=== PATIENT | male | born 1955 | race Caucasian/White ===

== ENCOUNTER 2016-10-27 19:29 | Inpatient (IN) | payer BC ==
[~2016-10-27] VITALS: Ht 185.4 cm; Wt 93.8 kg
[2016-10-27 22:15] VITALS: BP 118/68; PULSE 78; RESP 20; Ht 185.4 cm; Wt 93.8 kg
[2016-10-27 22:42] VITALS: PULSE 76
[2016-10-28] VITALS (28 sets, daily range): BP systolic 89–129; BP diastolic 51–81; PULSE 70–81; RESP 9–29
[2016-10-28] MEDS ORDERED: NACL 0.9% 3 ML SYG IV SCH (04:00)
[2016-10-28] MEDS ORDERED: METOCLOPRAMIDE 10 MG INJ IV PRN (04:00)
[2016-10-28] MEDS ORDERED: LORAZEPAM 2 MG INJ IV PRN (04:00)
--- NOTE | 2016-10-28 04:03 | HP ---
Date/Time of Note Date/Time of Note DATE: 10/28/16 TIME: 04:02 Assessment/Plan VTE Prophylaxis VTE Prophylaxis Intervention: anti-embolic stocking Lines/Catheters IV [facility]ter Type (from [facility]): Saline Lock Urinary Cath still in place: No Assessment/Plan Assessment/Plan 1) Abdominal Pain - Admit to telemetry - NPO 2) Elevated Troponin - possibly due to the seizures he had prior to his arrival at [facility] - complete serial Troponins - Cardiac Cath this afternoon HPI/ROS Admit Date/Time Admit Date/Time Oct 27, 2016 at 22:32 Hx of Present Illness Patient was transferred to us from [facility]. Initially, based on the paperwork that was sent with the patient, it seemed that he was sent here by mistake, and that he should have been [facility] his [facility].But ultimately, we found he was sent here to get a Cardiac Cath and to receive the rest of his care here. Unfortunately, there was no Discharge Summary with the patient and the note we had was that he was waiting for his Bone Marrow biopsy results and that if there was no adenopathy, he should get a heart cath. However , based on the CT of his chest, there was a lot of mediastinal nodes and a satellite lesion in the base that appeared to be malignant. Patient states this is why they did th bone marrow biopsy. Also, we did learn that patient was scheduled for a Heart Cath at 1430 on 10/28/16 . . . but it seemed that our physicians, the accepting hospitalist and the shared services and outsourcing manager may not have the entire story. Ultimately, it was me that did not have all the story. Patient had originally presented to [facility] after suffering 4 seizures in a row. His Troponins were found to be elevated and he was diagnosed with an NSTEMI. He also had some GI bleeding which has resolved. Patient states, and I can confirm it from the paperwork that he did have a thoracentesis, 410 mL fluid removed and sent to [facility], which helped him feel much better. Course of care not clear without a Discharge Summary as reference. came in, and when I had finished my interview, he let me know that prior to discharge, the patient's plan had changed and that he is supposed to get his Angiogram done today. Patient lets me know that he is having insurance and SNF issues in that he cannot return to [facility], the SNF he has been living at, because his insurance changed, and he is not sure what to do when he leaves [facility] as he has nowhere to stay. Other than being tired from only getting 3 hours of sleep, patient has no specific complaints or concerns. ROS General: Admits: Denies: Fever, Chills, Poor Appetite, Abnormal Weight Loss, Generalized Body Aches Eyes: Admits: Denies: Blurry Vision, Double Vision, Yellow Eyes HENT: Admits: Denies: Ear Pain/Pressure, Runny/Stuffy Nose, Sore Throat Cardiovascular: Admits: Denies: Chest Pain, Palpitations, Leg Swelling Pulmonary: Admits: Shortness of Breathwhen he walks a short distance "1 1/2 years ago I regularly walked 10 miles for exercise. Now, I can hardly walk across the room." Denies: Cough, Wheeze Gastrointestinal: Admits: Abdominal Discomfort, mild. On a previous admission , he ended up with C. dif and was hospitalized for 9 months while it was being treated. Hopes that does not happen again. Mentions that the discomfort is when he is having his BM. Lately, there has been a plug of stool, and once that passes, there is watery diarrhea behind it.No blood or mucus appreciated. Denies: Nausea, Vomiting, Diarrhea, Blood in Stool, Black-Colored Stool Urogenital: Admits: Denies: Burning with Urination, Urinary Frequency Musculoskeletal: Admits: Denies: Joint Pain, Joint Swelling, Muscle Pain Neurological: Admits: Denies: Headache, Dizziness, Numbness, Tingling, Shooting Pains Integumentary: Admits: Denies: Rash, Itch, Yellow Skin Endocrine: Admits: Denies: Excessive Thirst, Excessive Hunger, Intolerant to Cold , Intolerant to Heat Psychiatric: Admits: Denies: Anxiety, Depression PMH/Family/Social Past Medical History Medical History: diabetes Social History Smoking Status: Never smoker Exam/Review of Systems Vital Signs Vitals Vital Signs Date Time Temp Pulse Resp B/P Pulse Ox O2 Delivery O2 Flow Rate FiO2 10/28/16 02:18 97.7 74 18 116/65 97 10/27/16 22:15 Room Air Exam Exam General: Sleeping, easily roused, alert, oriented and pleasant, in no acute distress Eyes: Sclera White, EOMI HENT: Normocephalic/Atraumatic, External Ears/Nose Normal, Moist Mucus Membranes Neck: Supple, Trachea Midline Cardiovascular: Normal Rate, Normal Rhythm, Normal S1 and S2, No Murmur, No Extra Sounds Pulmonary: Clear to Auscultation Bilaterally, except decreased airflow in the bases. Normal Respiratory Effort, No Rales, Rhonchi or Wheezes Gastrointestinal: Normoactive Bowel Sounds, Soft, Non-Tender/Non-Distended, No Hepatosplenomegaly Appreciated, No Pulsatile Masses Urogenital: Deferred Musculoskeletal: Normal Muscle Bulk and Tone Neurological: CN II - XII Grossly Intact, Non-Focal, Speech Normal Integumentary: Normal Moisture and Temperature, Good Turgor, No Jaundice, No Rash Lymphatic: No Cervical Lymphadenopathy Psychiatric: Appropriate Mood and Affect, Good Eye Contact DANA ESCUDERO DO Oct 28, 2016 04:03
[2016-10-28] MEDS: FAMOTIDINE 20 MG INJ IV SCH ×3 (05:25→21:13)
[2016-10-28] MEDS: morphine 2 MG INJ IV PRN ×3 (05:26→15:13)
[2016-10-28 07:26] LABS: ADD SCAN DIFF NO
[2016-10-28 07:33] LABS: BASOPHILS % 0.3 % (0.0-2.0); EOSINOPHILS # 0.4 10^3/ul (0.0-0.5); EOSINOPHILS % 5.8 % (0.0-7.0); HEMATOCRIT 28.6 % (42.0-52.0); HEMOGLOBIN 8.7 g/dl (14.0-18.0); LYMPHOCYTES # 1.5 10^3/ul (0.8-2.9); LYMPHOCYTES % 22.5 % (15.0-51.0); MEAN CORPUSCULAR HEMOGLOBIN 24.6 pg (29.0-33.0); MEAN CORPUSCULAR HGB CONC 30.4 g/dl (32.0-37.0); MEAN CORPUSCULAR VOLUME 80.8 fl (82.0-101.0); MEAN PLATELET VOLUME 8.9 fl (7.4-10.4); MONOCYTE # 0.5 10^3/ul (0.3-0.9); MONOCYTES % 7.3 % (0.0-11.0); NEUTROPHIL # 4.2 10^3/ul (1.6-7.5); NEUTROPHILS % 63.8 % (39.0-77.0); PLATELET COUNT 201 10^3/UL (140-415); RED BLOOD COUNT 3.54 10^6/ul (4.70-6.10); RED CELL DISTRIBUTION WIDTH 14.7 % (11.5-14.5); WHITE BLOOD COUNT 6.6 10^3/ul (4.8-10.8)
[2016-10-28 07:39] LABS: ALBUMIN 3.5 g/dl (3.3-4.9)
[2016-10-28 07:40] LABS: POTASSIUM 4.4 mmol/L (3.5-5.1)
[2016-10-28 07:42] LABS: BILIRUBIN,INDIRECT 0.1 mg/dl (0-1.1); BILIRUBIN,TOTAL 0.1 mg/dl (0.2-1.3); CREATININE 0.89 mg/dl (0.61-1.24)
[2016-10-28 07:43] LABS: ALBUMIN/GLOBULIN RATIO 1.09; CALCIUM 8.6 mg/dl (8.4-10.2); MAGNESIUM 2.1 mg/dl (1.7-2.5); TOTAL PROTEIN 6.7 g/dl (6.1-8.1)
[2016-10-28 07:51] LABS: INR 0.94; PROTIME 12.6 Sec (12.2-14.2)
[2016-10-28 08:13] LABS: THYROID STIMULATING HORMONE 3.01 MIU/L (0.465-4.680)
[2016-10-28 08:27] LABS: CK-MB 3.59 ng/ml (0.0-2.4)
[2016-10-28 08:32] LABS: TROPONIN-I 0.146 ng/ml (0.00-0.12)
[2016-10-28] MEDS: METOPROLOL 25 MG TAB PO SCH ×2 (10:07→21:13)
[2016-10-28] MEDS: ASPIRIN 81 MG TAB PO SCH (10:07)
[2016-10-28] MEDS ORDERED: LIDOCAINE 1% (MDV) 20 ML INJ ONE (12:02)
[2016-10-28] MEDS ORDERED: VERAPAMIL 5 MG INJ ONE (12:02)
[2016-10-28] MEDS ORDERED: IODIXANOL LOCM 100 ML BTL ONE (12:02)
[2016-10-28] MEDS ORDERED: FENTAnyl 50 MCG/ML VIAL ONE (12:03)
[2016-10-28] MEDS ORDERED: MIDAZOLAM 1 MG/ML 2 ML INJ ONE (12:03)
[2016-10-28] MEDS ORDERED: HEPARIN 1000 UNITS/ML 10 ML INJ ONE (12:11)
[2016-10-28] MEDS ORDERED: NITROGLYCERIN (IC) 100 MCG/ML INJ ONE (12:11)
[2016-10-28 12:34] LABS: CK-MB 2.97 ng/ml (0.0-2.4)
[2016-10-28 12:36] LABS: TROPONIN-I 0.15 ng/ml (0.00-0.12)
[2016-10-28] MEDS ORDERED: ONDANSETRON 4 MG INJ IV PRN (14:00)
--- NOTE | 2016-10-28 14:05 | OPR ---
Date/Time of Note Date/Time of Note DATE: 10/28/16 TIME: 13:51 Operative Report Free Text/Dictation Procedure Date: 10/28/16 Procedures Performed: 1)Selective left and right coronary angiography. 2)Left ventricle angiography Pre-operative Diagnosis:NSTEMI, CAD. DM Post-operative Diagnosis:same Indications:61 yo M with DM, seizure disorder, right transmetatarsal amputation , who initially presented to [facility] with seizures and possible hematemesis s/p EGD with esophagitis, who was noted to have an NSTEMI with trop up to 2. The pt also had CHF and was diuresed and had thoracentesis. He also had lymphadenopathy on CT and had biopsy with results pending. Pt also had a bone marrow biopsy with results pending. He had a coronary CT which showed severe LAD and Cx disease with nondominant RCA disease. Cardiac cath was done for definitive coronary evaluation. Description of Procedure: After informed consent, the patient was brought to the cardiac catheterization lab. The procedure site was prepped and draped in usual manner. The patient was premedicated with versed 1mg and fentanyl 25 mcg. 2 mL lidocaine was injected into the right wrist. Next using the posterior wall approach, the 6/5 israeli sheath was inserted into the right radial artery. Next using the JL3.5 and JR4, selective angiography of the left and right coronary arteries were obtained. The pigtail was then advanced into the ventricle and hemodynamics obtained. Left ventricle angiography was obtained. Next all equipment was removed and hemostasis was obtained by TR band. 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 Best option is for CABG at this time. If not a candidate, may have some revascularization options but may need significant amount of stents. NSTEMI CHF Moderate MR: seen on echo while pt was decompensated. Only 1+ by cath but maybe underestimated. Will repeat echo Plan: -cardiac surgery eval for CABG -repeat echo for MR evaluation -continue ASA, statin, metoprolol TOMMIE PERALTA Oct 28, 2016 14:05
--- NOTE | 2016-10-28 14:25 | CONS ---
Date/Time of Note Date/Time of Note DATE: 10/28/16 TIME: 14:06 Assessment/Plan Assessment/Plan Chief Complaint/Hosp Course NSTEMI: s/p cath with severe CAD CAD: diffuse LAD disease, Cx/OM disease, non-dominant RCA. Eval for CABG Mitral regurgitation: moderate by echo at [facility] but pt had decompensated heart failure. By cath only 1+ but may be underestimated. Will repeat echo in case pt needs MVR as well. Seizure disorder: initial presentation was seizure ?Hematemesis: pt denies but had an EGD which showed Barretts esophagitis but otherwise no bleeding Lymphadenopathy: s/p biopsy, results pending Bone marrow biopsy: results pending DM Right transmetatarsal amputation -ASA, lipitor -metoprolol 25mg BID -repeat echo -cardiac surgery evaluation -f/u biopsy results Problems: Consultation Date/Type/Reason Admit Date/Time Oct 27, 2016 at 22:32 Initial Consult Date Type of Consultation: Cardiology 24 HR Interval Summary Free Text/Dictation 61 yo M with DM, seizure disorder, right transmetatarsal amputation, who initially presented to [facility] with seizures and possible hematemesis s/p EGD with esophagitis, who was noted to have an NSTEMI with trop up to 2. The pt also had CHF and was diuresed and had thoracentesis. He also had lymphadenopathy on CT and had biopsy with results pending. Pt also had a bone marrow biopsy with results pending. He had a coronary CT which showed severe LAD and Cx disease with nondominant RCA disease. Pt was transferred to [facility] for cardiac cath. Exam/Review of Systems Vital Signs Vitals Vital Signs Date Time Temp Pulse Resp B/P Pulse Ox O2 Delivery O2 Flow Rate FiO2 10/28/16 12:29 72 10/28/16 12:06 97.9 19 118/63 92 10/28/16 12:00 Room Air Exam Constitutional: alert, oriented Psych: no complaints Head: atraumatic, normocephalic Neck: No jvd Respiratory: clear to auscultation, No crackles/rales Cardiovascular: regular rate and rhythm, No edema, No systolic murmur Gastrointestinal: non-tender, soft Neurological: nl mental status, nl speech Results Result Diagram: 10/28/1663210/28/16632 Results 24 hrs Laboratory Tests Test 10/28/16 06:33 10/28/16 11:21 White Blood Count 6.6 Red Blood Count 3.54 L Hemoglobin 8.7 L Hematocrit 28.6 L Mean Corpuscular Volume 80.8 L Mean Corpuscular Hemoglobin 24.6 L Mean Corpuscular Hemoglobin Concent 30.4 L Red Cell Distribution Width 14.7 H Platelet Count 201 Mean Platelet Volume 8.9 Neutrophils % 63.8 Lymphocytes % 22.5 Monocytes % 7.3 Eosinophils % 5.8 Basophils % 0.3 Nucleated Red Blood Cells % 0.0 Neutrophils # 4.2 Lymphocytes # 1.5 Monocytes # 0.5 Eosinophils # 0.4 Basophils # 0.0 Nucleated Red Blood Cells # 0.0 Prothrombin Time 12.6 Prothrombin Time Ratio 1.0 INR International Normalized Ratio 0.94 Sodium Level 138 Potassium Level 4.4 Chloride Level 97 Carbon Dioxide Level 32 H Anion Gap 13 Blood Urea Nitrogen 23 H Creatinine 0.89 Glucose Level 149 Hemoglobin A1c 7.3 H Calcium Level 8.6 Magnesium Level 2.1 Total Bilirubin 0.1 L Direct Bilirubin 0.00 Indirect Bilirubin 0.1 Aspartate Amino Transf (AST/SGOT) 25 Alanine Aminotransferase (ALT/SGPT) 32 Alkaline Phosphatase 144 H Lactate Dehydrogenase 524 Creatine Kinase 76 72 Creatine Kinase Index 4.7 4.1 Creatinine Kinase MB (Mass) 3.59 H 2.97 H Troponin I 0.146 *H 0.150 *H Total Protein 6.7 Albumin 3.5 Globulin 3.20 Albumin/Globulin Ratio 1.09 Lipase 20 L Thyroid Stimulating Hormone (TSH) 3.010 Medications Medications Current Medications Lorazepam (Ativan) 0.5 mg Q6H PRN IV ANXIETY; Start 10/28/16 at 04:00 Metoclopramide HCl (Reglan) 10 mg Q6H PRN IV NAUSEA AND/OR VOMITING; Start at 04:00 Acetaminophen (Tylenol Supp) 650 mg Q6H PRN [place] PAIN LEVEL 1-3 OR FEVER; Start 10/28/16 at 04:00 Morphine Sulfate (morphine) 2 mg Q4H PRN IV PAIN LEVEL 7-10 Last administered on 10/28/16 10:09; Admin Dose 2 MG; Start 10/28/16 at 04:00 Famotidine (Pepcid Iv) 20 mg Q12 IV Last administered on 10/28/16 09:48; Admin Dose 20 MG; Start 10/28/16 at 04:00 Aspirin (Aspirin) 81 mg DAILY PO Last administered on 10/28/16 10:07; Admin Dose 81 MG; Start 10/28/16 at 09:00 Atorvastatin Calcium (Lipitor) 40 mg HS PO ; Start 10/28/16 at 21:00 Metoprolol Tartrate (Lopressor) 25 mg BID PO Last administered on 10/28/16 10: 07; Admin Dose 25 MG; Start 10/28/16 at 09:00 TOMMIE PERALTA Oct 28, 2016 14:25
--- NOTE | 2016-10-28 16:32 | PN ---
Date/Time of Note Date/Time of Note DATE: 10/28/16 TIME: 16:23 Assessment/Plan VTE Prophylaxis VTE Prophylaxis Intervention: LMWH Lines/Catheters IV [facility] Type (from [facility]): Peripheral IV Urinary Cath still in place: No Assessment/Plan Chief Complaint/Hosp Course Assessment and plan 1. NSTEMI, status post left heart cath and finding of severe diffuse three- vessel disease Continue aspirin, statin, beta-arden Cardiothoracic surgeon has been consulted for CABG 2. severe diffuse 3V disease As above, continue aggressive medical management, cardiothoracic evaluation for upcoming CABG 3. diabetic mellitus Place patient on insulin sliding scale, low-carb diet 4. CHF Cardiology has been consulted, follow-up 2D echocardiogram 5. History of moderate MR Stable 6. History of seizure disorder Continue home medication DVT prophylaxis: On Lovenox We will continue monitor patient closely for recommendation management treatment as clinical course Problems: Subjective 24 Hr Interval Summary Free Text/Dictation Post cardiac cath Patient denies any chest pain or shortness of breath Tolerating oral intake No seizure activity since admission Exam/Review of Systems Vital Signs Vitals Vital Signs Date Time Temp Pulse Resp B/P Pulse Ox O2 Delivery O2 Flow Rate FiO2 10/28/16 15:49 71 19 118/62 98 Room Air 10/28/16 14:24 98.2 Exam General: The patient is well-developed, Not in acute distress. HEENT: Atraumatic, normocephalic. The pupils are equal and round . Neck: Supple with full range of motion. Chest: Normal expansion of the thorax during inspiration Lungs: Clear to auscultation bilaterally Heart: Normal S1-S2, Regular rhythm and rate. Abdomen: Soft , nontender, nondistended , bowel sounds are present. Extremities: Normal to inspection, no edema no cyanosis Neurologic: Normal mental status,The patient is awake, alert and oriented . Results Result Diagram: 10/28/16 0633 10/28/16 0633 Results 24 hrs Laboratory Tests Test 10/28/16 06:33 10/28/16 11:21 10/28/16 15:42 White Blood Count 6.6 Red Blood Count 3.54 L Hemoglobin 8.7 L Hematocrit 28.6 L Mean Corpuscular Volume 80.8 L Mean Corpuscular Hemoglobin 24.6 L Mean Corpuscular Hemoglobin Concent 30.4 L Red Cell Distribution Width 14.7 H Platelet Count 201 Mean Platelet Volume 8.9 Neutrophils % 63.8 Lymphocytes % 22.5 Monocytes % 7.3 Eosinophils % 5.8 Basophils % 0.3 Nucleated Red Blood Cells % 0.0 Neutrophils # 4.2 Lymphocytes # 1.5 Monocytes # 0.5 Eosinophils # 0.4 Basophils # 0.0 Nucleated Red Blood Cells # 0.0 Prothrombin Time 12.6 Prothrombin Time Ratio 1.0 INR International Normalized Ratio 0.94 Sodium Level 138 Potassium Level 4.4 Chloride Level 97 Carbon Dioxide Level 32 H Anion Gap 13 Blood Urea Nitrogen 23 H Creatinine 0.89 Glucose Level 149 Hemoglobin A1c 7.3 H Calcium Level 8.6 Magnesium Level 2.1 Total Bilirubin 0.1 L Direct Bilirubin 0.00 Indirect Bilirubin 0.1 Aspartate Amino Transf (AST/SGOT) 25 Alanine Aminotransferase (ALT/SGPT) 32 Alkaline Phosphatase 144 H Lactate Dehydrogenase 524 Creatine Kinase 76 72 Creatine Kinase Index 4.7 4.1 Creatinine Kinase MB (Mass) 3.59 H 2.97 H Troponin I 0.146 *H 0.150 *H Total Protein 6.7 Albumin 3.5 Globulin 3.20 Albumin/Globulin Ratio 1.09 Lipase 20 L Thyroid Stimulating Hormone (TSH) 3.010 Bedside Glucose 148 Medications Medications Current Medications Lorazepam (Ativan) 0.5 mg Q6H PRN IV ANXIETY; Start 10/28/16 at 04:00 Metoclopramide HCl (Reglan) 10 mg Q6H PRN IV NAUSEA AND/OR VOMITING; Start at 04:00 Acetaminophen (Tylenol Supp) 650 mg Q6H PRN [place] PAIN LEVEL 1-3 OR FEVER; Start 10/28/16 at 04:00 Morphine Sulfate (morphine) 2 mg Q4H PRN IV PAIN LEVEL 7-10 Last administered on 10/28/16 10:09; Admin Dose 2 MG; Start 10/28/16 at 04:00 Famotidine (Pepcid Iv) 20 mg Q12 IV Last administered on 10/28/16 09:48; Admin Dose 20 MG; Start 10/28/16 at 04:00 Aspirin (Aspirin) 81 mg DAILY PO Last administered on 10/28/16 10:07; Admin Dose 81 MG; Start 10/28/16 at 09:00 Atorvastatin Calcium (Lipitor) 40 mg HS PO ; Start 3/23/17 at 21:00 Metoprolol Tartrate (Lopressor) 25 mg BID PO Last administered on 10/28/16 10: 07; Admin Dose 25 MG; Start 10/28/16 at 09:00 Morphine Sulfate (morphine) 2 mg Q2H PRN IV FOR NON CARDIAC PAIN (4-10) Last administered on 10/28/16 15:13; Admin Dose 2 MG; Start 10/28/16 at 14:00 Ondansetron HCl (Zofran Inj) 4 mg Q4H PRN IV NAUSEA AND/OR VOMITING; Start at 14:00 BRITTNEY COPELAND MD Oct 28, 2016 16:32
[2016-10-28 19:36] LABS: ADD UMIC NO; URINE BILIRUBIN (Dip) NEGATIVE (NEGATIVE); URINE BLOOD (Dip) NEGATIVE (NEGATIVE); URINE COLOR LT. YELLOW (YELLOW); URINE GLUCOSE (Dip) NEGATIVE (NEGATIVE); URINE KETONES (Dip) NEGATIVE (NEGATIVE); URINE LEUKOCYTE ESTERASE (Dip) NEGATIVE (NEGATIVE); URINE NITRITE (Dip) NEGATIVE (NEGATIVE); URINE TOTAL PROTEIN (Dip) NEGATIVE (NEGATIVE); URINE UROBILINOGEN (Dip) 0.2 E.U./dL (0.1-1.0)
--- NOTE | 2016-10-28 20:21 | CONS ---
DATE OF ADMISSION: 10/27/2016 DATE OF CONSULTATION: REASON FOR CONSULTATION: Evaluation for coronary artery bypass grafting. Thank you, ____ for asking me to see this patient. HISTORY OF PRESENT ILLNESS: This is a 61-year-old male with a history of seizure disorder which was started 15 years ago. The patient at that time had a myocardial infarction. The patient is now be ing admitted to [facility] with seizures again and hemetemesis. The patient was found to have a [id number] MA with elevation of the troponins. Coronary angiogram was done which show ed 3-vessel coronary artery disease. The patient's LAD had 70% proximal and 80 to 90% distal, diago nal branch had 80 to 90% disease, circumflex had 70% stenosis at OM2 and OM3. Right coronary artery was small, nondominant with 70% stenosis. Left ventricular ejection fraction was 55% with 1+ MR. PAST MEDICAL HISTORY: Positive for hypertension, diabetes, peripheral vascular disease, CHF, histor y of seizure disorder. PAST SURGICAL HISTORY: Foot amputation. ALLERGIES: NONE. SOCIAL HISTORY: No smoking, drinking, or drug use. MEDICATIONS: List reviewed. PHYSICAL EXAMINATION: VITAL SIGNS: Blood pressure is 121/89, pulse 72, respirations 18, saturation is 97% on room air. HEENT: Normocephalic, atraumatic. PERRLA. NECK: Supple. No JVD, no carotid bruits. CARDIOVASCULAR: Regular rate and rhythm. LUNGS: Clear. ABDOMEN: Soft. EXTREMITIES: Warm. Foot amputation is noted. LABORATORY VALUES: Hemoglobin 8.7, white count 6.6, platelet count 201. Normal coagulation factors with a creatinine of 0.89. IMPRESSION: 1. Coronary artery disease. 2. Status post myocardial infarction. 3. Anemia. 4. Gastrointestinal bleeding. 5. Seizure disorder. 6. Peripheral vascular disease status post foot amputation. RECOMMENDATIONS: The patient is a candidate to undergo coronary artery bypass grafting; however, hi s GI bleeding needs to be fully evaluated because during the course of open heart surgery, he would be given a very large dose of heparin. This was discussed with the patient. Will discuss with the referring physicians. Dictated By: JOAN CONNELL/JOSELINE Conf#: [id number] DID#: [id number]
[2016-10-28] MEDS: ATORVASTATIN 40 MG TAB PO SCH (21:12)
--- NOTE | 2016-10-28 23:19 | CONS ---
Date/Time of Note Date/Time of Note DATE: 10/28/16 TIME: :17 Assessment/Plan Assessment/Plan Chief Complaint/Hosp Course Anemia S/P EGD ([facility]) Esophagitis POST BMBX- AT [facility] THE REST -P AWAIT FINAL PATH MONITOR BLOOD COUNT CLOSELY NSTEMI Multivessel CAD History of seizure History of alcoholism History of C difficile colitis Diabetes mellitus POST BMBX- AT [facility], THE REST -P AWAIT FINAL PATH Problems: Consultation Date/Type/Reason Admit Date/Time Oct 27, 2016 at 22:32 Date of Consultation: Oct 28, 2016 Type of Consultation: HEMEONC Reason for Consultation ANEMIA, INCREASED GLOBULINS Referring Provider: ANGELINA BO MD Hx of Present Illness POST BMBX- AT [facility], THE REST -P Psychological: no complaints Past Medical History Medical History: diabetes Social History Smoking Status: Never smoker Exam/Review of Systems Vital Signs Vitals Vital Signs Date Time Temp Pulse Resp B/P Pulse Ox O2 Delivery O2 Flow Rate FiO2 10/28/16 20:41 72 10/28/16 20:08 97.7 20 109/57 98 10/28/16 15:49 Room Air Exam Exam Constitutional: alert, oriented, well developed Psych: nl mood/affect Head: normocephalic Eyes: EOMI, nl conjunctiva, nl lids ENMT: nl external ears & nose, nl lips & teeth, nl nasal mucosa & septum Respiratory: clear to auscultation, normal air movement Cardiovascular: regular rate and rhythm Gastrointestinal: soft, diffuse tenderness Musculoskeletal: nl extremities to inspection Neurological: SAWSMITH II-XII intact Results Result Diagram: 10/28/16 0633 10/28/16 0633 Results 24 hrs Laboratory Tests Test 10/28/16 06:33 10/28/16 11:21 10/28/16 15:42 10/28/16 18:00 White Blood Count 6.6 Red Blood Count 3.54 L Hemoglobin 8.7 L Hematocrit 28.6 L Mean Corpuscular Volume 80.8 L Mean Corpuscular Hemoglobin 24.6 L Mean Corpuscular Hemoglobin Concent 30.4 L Red Cell Distribution Width 14.7 H Platelet Count 201 Mean Platelet Volume 8.9 Neutrophils % 63.8 Lymphocytes % 22.5 Monocytes % 7.3 Eosinophils % 5.8 Basophils % 0.3 Nucleated Red Blood Cells % 0.0 Neutrophils # 4.2 Lymphocytes # 1.5 Monocytes # 0.5 Eosinophils # 0.4 Basophils # 0.0 Nucleated Red Blood Cells # 0.0 Prothrombin Time 12.6 Prothrombin Time Ratio 1.0 INR International Normalized Ratio 0.94 Sodium Level 138 Potassium Level 4.4 Chloride Level 97 Carbon Dioxide Level 32 H Anion Gap 13 Blood Urea Nitrogen 23 H Creatinine 0.89 Glucose Level 149 Hemoglobin A1c 7.3 H Calcium Level 8.6 Magnesium Level 2.1 Total Bilirubin 0.1 L Direct Bilirubin 0.00 Indirect Bilirubin 0.1 Aspartate Amino Transf (AST/SGOT) 25 Alanine Aminotransferase (ALT/SGPT) 32 Alkaline Phosphatase 144 H Lactate Dehydrogenase 524 Creatine Kinase 76 72 Creatine Kinase Index 4.7 4.1 Creatinine Kinase MB (Mass) 3.59 H 2.97 H Troponin I 0.146 *H 0.150 *H Total Protein 6.7 Albumin 3.5 Globulin 3.20 Albumin/Globulin Ratio 1.09 Lipase 20 L Thyroid Stimulating Hormone (TSH) 3.010 Bedside Glucose 148 Urine Color LT. YELLOW Urine Clarity CLEAR Urine pH 8.0 Urine Specific Huntly 1.010 Urine Ketones NEGATIVE Urine Nitrite NEGATIVE Urine Bilirubin NEGATIVE Urine Urobilinogen 0.2 E.U./dL Urine Leukocyte Esterase NEGATIVE Urine Hemoglobin NEGATIVE Urine Glucose NEGATIVE Urine Total Protein NEGATIVE Medications Medications Current Medications Lorazepam (Ativan) 0.5 mg Q6H PRN IV ANXIETY; Start 10/28/16 at 04:00 Metoclopramide HCl (Reglan) 10 mg Q6H PRN IV NAUSEA AND/OR VOMITING; Start at 04:00 Acetaminophen (Tylenol Supp) 650 mg Q6H PRN [place] PAIN LEVEL 1-3 OR FEVER; Start 10/28/16 at 04:00 Morphine Sulfate (morphine) 2 mg Q4H PRN IV PAIN LEVEL 7-10 Last administered on 10/28/16 10:09; Admin Dose 2 MG; Start 10/28/16 at 04:00 Famotidine (Pepcid Iv) 20 mg Q12 IV Last administered on 10/28/16 21:13; Admin Dose 20 MG; Start 10/28/16 at 04:00 Aspirin (Aspirin) 81 mg DAILY PO Last administered on 10/28/16 10:07; Admin Dose 81 MG; Start 10/28/16 at 09:00 Atorvastatin Calcium (Lipitor) 40 mg HS PO Last administered on 10/28/16 21:12 ; Admin Dose 40 MG; Start 10/28/16 at 21:00 Metoprolol Tartrate (Lopressor) 25 mg BID PO Last administered on 10/28/16 21: 13; Admin Dose 25 MG; Start 10/28/16 at 09:00 Morphine Sulfate (morphine) 2 mg Q2H PRN IV FOR NON CARDIAC PAIN (4-10) Last administered on 10/28/16 15:13; Admin Dose 2 MG; Start 10/28/16 at 14:00 Ondansetron HCl (Zofran Inj) 4 mg Q4H PRN IV NAUSEA AND/OR VOMITING; Start at 14:00 Enoxaparin Sodium (Lovenox) 40 mg DAILY SC ; Start 10/29/16 at 09:00 BETO PADILLA MD Oct 28, 2016 23:19
[2016-10-29] VITALS (13 sets, daily range): BP systolic 120–153; BP diastolic 63–75; PULSE 70–77; RESP 18–20
[2016-10-29] MEDS: HYDROCODONE/APAP (5/325) TAB PO PRN (00:09)
[2016-10-29 07:45] LABS: ADD SCAN DIFF NO
[2016-10-29 07:55] LABS: BASOPHILS % 0.4 % (0.0-2.0); EOSINOPHILS # 0.3 10^3/ul (0.0-0.5); EOSINOPHILS % 5.9 % (0.0-7.0); HEMATOCRIT 28.5 % (42.0-52.0); HEMOGLOBIN 8.8 g/dl (14.0-18.0); LYMPHOCYTES # 1.3 10^3/ul (0.8-2.9); MEAN CORPUSCULAR HEMOGLOBIN 24.8 pg (29.0-33.0); MEAN CORPUSCULAR HGB CONC 30.9 g/dl (32.0-37.0); MEAN CORPUSCULAR VOLUME 80.3 fl (82.0-101.0); MEAN PLATELET VOLUME 9.3 fl (7.4-10.4); MONOCYTE # 0.4 10^3/ul (0.3-0.9); MONOCYTES % 7.9 % (0.0-11.0); NEUTROPHIL # 2.6 10^3/ul (1.6-7.5); NEUTROPHILS % 57.6 % (39.0-77.0); PLATELET COUNT 196 10^3/UL (140-415); RED BLOOD COUNT 3.55 10^6/ul (4.70-6.10); RED CELL DISTRIBUTION WIDTH 14.5 % (11.5-14.5); WHITE BLOOD COUNT 4.5 10^3/ul (4.8-10.8)
[2016-10-29 08:21] LABS: POTASSIUM 4.4 mmol/L (3.5-5.1)
[2016-10-29 08:23] LABS: CREATININE 0.96 mg/dl (0.61-1.24)
[2016-10-29 08:24] LABS: CALCIUM 8.5 mg/dl (8.4-10.2); MAGNESIUM 2.1 mg/dl (1.7-2.5)
[2016-10-29 08:25] LABS: CHOL/HDL RATIO 3.4 RATIO
[2016-10-29] MEDS: ASPIRIN 81 MG TAB PO SCH (09:04)
[2016-10-29] MEDS: FAMOTIDINE 20 MG INJ IV SCH (09:04)
[2016-10-29] MEDS: METOPROLOL 25 MG TAB PO SCH ×2 (09:05→20:59)
[2016-10-29] MEDS: ENOXAPARIN 40 MG/0.4 ML SYG SC SCH (09:06)
--- NOTE | 2016-10-29 12:25 | RADRPT ---
Echocardiogram Report Patient Name: CARL LEZAMA Gender: Male Date: 1955 Study Date: 28-Oct-2016 Pan Washer Hand: Ash Castillo [facility] Location: 5559 Ref. Physician: TOMMIE PERALTA Quality: Adequate Procedures: Transthoracic echocardiogram with complete 2D, M-Mode, and doppler examination. Indications: Mitral regurgitation. NSTEMI. 2D/M Mode Doppler Measurement Value Normal Ranges Measurement Value Normal Ranges LVIDd 2D 4.7 3.5 - 5.6 cm AV Peak Cristino 1.0 m/sec LVIDs 2D 3.1 2.1 - 4.1 cm AV Peak PG 4.0 mmHg FS 2D 34.2 % LVOT Peak Cristino 0.9 m/sec LVPWd 2D 1.0 0.6 - 1.1 cm LVOT Peak PG 3.0 mmHg IVSd 2D 0.9 0.6 - 1.1 cm IVS/LVPW 2D 0.9 AoR Diam 2D 3.1 2.0 - 3.7 cm LA/Ao 2D 1 0 - 1 EDV 2D 101.0 cm3 ESV 2D 28.7 cm3 LA Dimen 2D 4.0 2.3 - 4.0 cm Findings Left Ventricle: Normal left ventricular systolic function. Normal left ventricular cavity size. Ejection fraction is visually estimated at 55 %. Tissue Doppler/Mitral Doppler indices are consistent with impaired relaxation (Stage I diastolic dysfunction). Resting Segmental Wall Motion Analysis: Hypokinesis of the basal inferolateral and inferior teresa. Right Ventricle: Normal right ventricular size. Normal right ventricular systolic function. Left Atrium: There is mild enlargement of left atrium. Right Atrium: The right atrium is normal in size. Mitral Valve: Mitral valve leaflets appear mildly thickened. Mild mitral annular calcification. Mild mitral valve regurgitation. Aortic Valve: No significant aortic stenosis or insufficiency. Aortic cusps appear mildly calcified. Tricuspid Valve: Unable to obtain RVSP due to minimal presence of tricuspid regurgitation. Pulmonic Valve: Normal pulmonic valve appearance. There is trace pulmonic regurgitation. Pericardium: Normal pericardium with no significant pericardial effusion. Aorta: Normal aortic root. IVC: Normal size and no respiratory collapse consistent with elevated right atrial pressure. Conclusions 1.Normal left ventricular size and function. Ejection fraction is visually estimated at 55 %. No LVH. Tissue Doppler/Mitral Doppler indices are consistent with impaired relaxation (Stage I diastolic dysfunction). Hypokinesis of the basal inferolateral and inferior teresa. 2.Mild mitral valve regurgitation. 3.Unable to obtain RVSP due to minimal presence of tricuspid regurgitation. RA pressure is estimated to be 8 mmHg. Electronically Signed By: Tommie Peralta 29-Oct-2016 12:25:32 -0700 Patient Name: CARL LEZAMA Study Date: 28-Oct-2016 [id number]
--- NOTE | 2016-10-29 12:53 | CONS ---
Date/Time of Note Date/Time of Note DATE: 10/29/16 TIME: 12:51 Assessment/Plan Assessment/Plan Chief Complaint/Hosp Course NSTEMI: s/p cath with severe CAD CAD: diffuse LAD disease, Cx/OM disease, non-dominant RCA. Will need CABG. Mitral regurgitation: moderate by echo at [place] but pt had decompensated heart failure. By cath only 1+ and by repeat echo only mild. Seizure disorder: initial presentation was seizure ?Hematemesis: pt denies but had an EGD which showed Barretts esophagitis but otherwise no bleeding Lymphadenopathy: s/p biopsy, results pending Bone marrow biopsy: results pending DM Right transmetatarsal amputation -ASA, lipitor -metoprolol 25mg BID -per cardiac surgery recs, will need GI eval prior to surgery Problems: Consultation Date/Type/Reason Admit Date/Time Oct 27, 2016 at 22:32 Type of Consultation: Cardiology 24 HR Interval Summary Free Text/Dictation No o/n events. No chest pain. Has multiple questions about the upcoming surgery. Exam/Review of Systems Vital Signs Vitals Vital Signs Date Time Temp Pulse Resp B/P Pulse Ox O2 Delivery O2 Flow Rate FiO2 10/29/16 12:31 98.0 68 19 153/67 97 10/28/16 15:49 Room Air Intake and Output 10/28/16 10/28/16 10/29/16 15:00 23:00 07:00 Intake Total 350 ml 240 ml Output Total 800 ml Balance -450 ml 240 ml Exam Constitutional: alert, oriented Psych: no complaints Head: atraumatic, normocephalic Neck: No jvd Respiratory: clear to auscultation, diminished breath sounds Cardiovascular: regular rate and rhythm, No systolic murmur Gastrointestinal: non-tender, soft Neurological: nl mental status, nl speech Results Result Diagram: 10/29/16 0713 10/29/16 0713 Results 24 hrs Laboratory Tests Test 10/28/16 15:42 10/28/16 18:00 10/29/16 07:13 Bedside Glucose 148 Urine Color LT. YELLOW Urine Clarity CLEAR Urine pH 8.0 Urine Specific [place] 1.010 Urine Ketones NEGATIVE Urine Nitrite NEGATIVE Urine Bilirubin NEGATIVE Urine Urobilinogen 0.2 E.U./dL Urine Leukocyte Esterase NEGATIVE Urine Hemoglobin NEGATIVE Urine Glucose NEGATIVE Urine Total Protein NEGATIVE White Blood Count 4.5 #L Red Blood Count 3.55 L Hemoglobin 8.8 L Hematocrit 28.5 L Mean Corpuscular Volume 80.3 L Mean Corpuscular Hemoglobin 24.8 L Mean Corpuscular Hemoglobin Concent 30.9 L Red Cell Distribution Width 14.5 Platelet Count 196 Mean Platelet Volume 9.3 Neutrophils % 57.6 Lymphocytes % 28.0 Monocytes % 7.9 Eosinophils % 5.9 Basophils % 0.4 Nucleated Red Blood Cells % 0.0 Neutrophils # 2.6 Lymphocytes # 1.3 Monocytes # 0.4 Eosinophils # 0.3 Basophils # 0.0 Nucleated Red Blood Cells # 0.0 Sodium Level 139 Potassium Level 4.4 Chloride Level 100 Carbon Dioxide Level 30 Anion Gap 13 Blood Urea Nitrogen 19 Creatinine 0.96 Glucose Level 214 Calcium Level 8.5 Magnesium Level 2.1 Triglycerides Level 137 Cholesterol Level 101 LDL Cholesterol, Calculated 45 HDL Cholesterol 29 L Cholesterol/HDL Ratio 3.4 Medications Medications Current Medications Lorazepam (Ativan) 0.5 mg Q6H PRN IV ANXIETY; Start 10/28/16 at 04:00 Metoclopramide HCl (Reglan) 10 mg Q6H PRN IV NAUSEA AND/OR VOMITING; Start at 04:00 Acetaminophen (Tylenol Supp) 650 mg Q6H PRN [place] PAIN LEVEL 1-3 OR FEVER; Start 10/28/16 at 04:00 Morphine Sulfate (morphine) 2 mg Q4H PRN IV PAIN LEVEL 7-10 Last administered on 10/28/16 10:09; Admin Dose 2 MG; Start 10/28/16 at 04:00 Famotidine (Pepcid Iv) 20 mg Q12 IV Last administered on 10/29/16 09:04; Admin Dose 20 MG; Start 10/28/16 at 04:00 Aspirin (Aspirin) 81 mg DAILY PO Last administered on 10/29/16 09:04; Admin Dose 81 MG; Start 10/28/16 at 09:00 Atorvastatin Calcium (Lipitor) 40 mg HS PO Last administered on 10/28/16 21:12 ; Admin Dose 40 MG; Start 10/28/16 at 21:00 Metoprolol Tartrate (Lopressor) 25 mg BID PO Last administered on 10/29/16 09: 05; Admin Dose 25 MG; Start 10/28/16 at 09:00 Morphine Sulfate (morphine) 2 mg Q2H PRN IV FOR NON CARDIAC PAIN (4-10) Last administered on 10/28/16 15:13; Admin Dose 2 MG; Start 10/28/16 at 14:00 Ondansetron HCl (Zofran Inj) 4 mg Q4H PRN IV NAUSEA AND/OR VOMITING; Start at 14:00 Enoxaparin Sodium (Lovenox) 40 mg DAILY SC Last administered on 10/29/16 09:06 ; Admin Dose 40 MG; Start 10/29/16 at 09:00 Acetaminophen/ Hydrocodone Bitart ([place] (5/325)) 1 tab Q4H PRN PO MODERATE PAIN LEVEL 4-6 Last administered on 10/29/16 00:09; Admin Dose 1 TAB; Start at 00:00 Acetaminophen/ Hydrocodone Bitart ([place] (5/325)) 2 tab Q4H PRN PO SEVERE PAIN LEVEL 7-10; Start 10/29/16 at 00:00 TOMMIE PERALTA Oct 29, 2016 12:53
--- NOTE | 2016-10-29 13:38 | PN ---
Date/Time of Note Date/Time of Note DATE: 10/29/16 TIME: 13:27 Assessment/Plan VTE Prophylaxis VTE Prophylaxis Intervention: LMWH Lines/Catheters IV Catheter Type (from Nrs): Saline Lock Assessment/Plan Chief Complaint/Hosp Course S-61-yr-M admitted to [facility] w I believe with seizure. Further eval, noted abn trop. Additional concern for GIb. -EGD:[facility]?. Transferred here for abn trop. -sp cath w multivessel dz. 10/29-no active cp, dyspnea, edema. No fever. Denies alcohol use or active bleeding. No recent tongue bite or repeat seizure. O-vss PE No pallor adenopathy JVD Reg no murmur rub gallop CTAB Bs + nt nd; no R/R/G No edema. +TMA status A/P 1. NSTMI; stable cont medical management 2. Multivessel CAD. CABG eval. Carotids. will need GI & Onc 'clearance 1st'. 3. Breakthrough seizure on ch seizure dz. Stable cont therapy. 4. Past alcoholism 5. Remote tobacco exposure/marijuana. 6. 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 Treated for maybe a year. No recent hemoptysis wt loss. 7. Ho C diff colitis 8. TMA status 9. Ftt. Placement needed on discharge 10. Chr Dm/metabolic syndrome 11. Htn 12. Probable PAD 13. Recent decompensated CHF. EF 55% 14. Pleural effusion. Probable exudative CHF however related. 15. Valvular heart disease; mild MR 16. Lymphadenopathy. BMBx pending. No ho recent wt loss. Retired from [employer]. Remote colonoscopy negative. Again probable history of TB 17. MRSA nares colonized Problems: Exam/Review of Systems Vital Signs Vitals Vital Signs Date Time Temp Pulse Resp B/P Pulse Ox O2 Delivery O2 Flow Rate FiO2 10/29/16 12:31 98.0 68 19 153/67 97 10/28/16 15:49 Room Air Intake and Output 10/28/16 10/28/16 10/29/16 15:00 23:00 07:00 Intake Total 350 ml 240 ml Output Total 800 ml Balance -450 ml 240 ml Results Result Diagram: 10/29/16 0713 10/29/16 0713 Results 24 hrs Laboratory Tests Test 10/28/16 15:42 10/28/16 18:00 10/29/16 07:13 Bedside Glucose 148 Urine Color LT. YELLOW Urine Clarity CLEAR Urine pH 8.0 Urine Specific [place] 1.010 Urine Ketones NEGATIVE Urine Nitrite NEGATIVE Urine Bilirubin NEGATIVE Urine Urobilinogen 0.2 E.U./dL Urine Leukocyte Esterase NEGATIVE Urine Hemoglobin NEGATIVE Urine Glucose NEGATIVE Urine Total Protein NEGATIVE White Blood Count 4.5 #L Red Blood Count 3.55 L Hemoglobin 8.8 L Hematocrit 28.5 L Mean Corpuscular Volume 80.3 L Mean Corpuscular Hemoglobin 24.8 L Mean Corpuscular Hemoglobin Concent 30.9 L Red Cell Distribution Width 14.5 Platelet Count 196 Mean Platelet Volume 9.3 Neutrophils % 57.6 Lymphocytes % 28.0 Monocytes % 7.9 Eosinophils % 5.9 Basophils % 0.4 Nucleated Red Blood Cells % 0.0 Neutrophils # 2.6 Lymphocytes # 1.3 Monocytes # 0.4 Eosinophils # 0.3 Basophils # 0.0 Nucleated Red Blood Cells # 0.0 Sodium Level 139 Potassium Level 4.4 Chloride Level 100 Carbon Dioxide Level 30 Anion Gap 13 Blood Urea Nitrogen 19 Creatinine 0.96 Glucose Level 214 Calcium Level 8.5 Magnesium Level 2.1 Triglycerides Level 137 Cholesterol Level 101 LDL Cholesterol, Calculated 45 HDL Cholesterol 29 L Cholesterol/HDL Ratio 3.4 Medications Medications Current Medications Lorazepam (Ativan) 0.5 mg Q6H PRN IV ANXIETY; Start 10/28/16 at 04:00 Metoclopramide HCl (Reglan) 10 mg Q6H PRN IV NAUSEA AND/OR VOMITING; Start at 04:00 Acetaminophen (Tylenol Supp) 650 mg Q6H PRN [place] PAIN LEVEL 1-3 OR FEVER; Start 10/28/16 at 04:00 Morphine Sulfate (morphine) 2 mg Q4H PRN IV PAIN LEVEL 7-10 Last administered on 10/28/16 10:09; Admin Dose 2 MG; Start 10/28/16 at 04:00 Famotidine (Pepcid Iv) 20 mg Q12 IV Last administered on 10/29/16 09:04; Admin Dose 20 MG; Start 10/28/16 at 04:00 Aspirin (Aspirin) 81 mg DAILY PO Last administered on 10/29/16 09:04; Admin Dose 81 MG; Start 10/28/16 at 09:00 Atorvastatin Calcium (Lipitor) 40 mg HS PO Last administered on 10/28/16 21:12 ; Admin Dose 40 MG; Start 10/28/16 at 21:00 Metoprolol Tartrate (Lopressor) 25 mg BID PO Last administered on 10/29/16 09: 05; Admin Dose 25 MG; Start 10/28/16 at 09:00 Morphine Sulfate (morphine) 2 mg Q2H PRN IV FOR NON CARDIAC PAIN (4-10) Last administered on 10/28/16 15:13; Admin Dose 2 MG; Start 10/28/16 at 14:00 Ondansetron HCl (Zofran Inj) 4 mg Q4H PRN IV NAUSEA AND/OR VOMITING; Start at 14:00 Enoxaparin Sodium (Lovenox) 40 mg DAILY SC Last administered on 10/29/16 09:06 ; Admin Dose 40 MG; Start 10/29/16 at 09:00 Acetaminophen/ Hydrocodone Bitart ([place] (5/325)) 1 tab Q4H PRN PO MODERATE PAIN LEVEL 4-6 Last administered on 10/29/16 00:09; Admin Dose 1 TAB; Start at 00:00 Acetaminophen/ Hydrocodone Bitart ([place] (5/325)) 2 tab Q4H PRN PO SEVERE PAIN LEVEL 7-10; Start 10/29/16 at 00:00 MARIANELA RODRÍGUEZ MD Oct 29, 2016 13:38
[2016-10-29] MEDS: MUPIROCIN 2% 15 GM CR TOP SCH ×2 (14:45→20:58)
--- NOTE | 2016-10-29 16:29 | CONS ---
Date/Time of Note Date/Time of Note DATE: 10/29/16 TIME: 16:04 Assessment/Plan Assessment/Plan Additional Assessment/Plan Assessment -Anemia (Stable hgb 8.8 S/P EGD ([facility]) Esophagitis NSTEMI Multivessel CAD History of seizure History of alcoholism History of C difficile colitis Diabetes mellitus Plan - stool for occult blood -- proton pump inhibitor Consultation Date/Type/Reason Admit Date/Time Oct 27, 2016 at 22:32 Type of Consultation: Gastroenterology Reason for Consultation history of gi bleed Hx of Present Illness 61 y/o referred to for evaluation of recent gi bleed.Patient was previously seen 1 week ago at [facility] because of seizure disorder,NSTEMI, and hematemesis.He underwent EGD which revealed esophagitis.Thoracentesis for pleural effusion and bone marrow biopsy Patient was subsequently transferred 3 days ago ,for coronary angiogram which revealed 3 vessel disease in male.Presently ,patient denies any hematemesis,vomiting , hematochezia , abdominal pain ,nor ,melena.except for an episode of diarrhea watery,no blood yesterday.Present hemoglobin is 8.8 stable.Denies history of colonoscopy Constitutional: improved, no complaints Eyes: no complaints ENT: no complaints Respiratory: no complaints Cardiovascular: no complaints Gastrointestinal: diarrhea (once), no complaints, No blood, No constipation, No flatus, No nausea, No pain Genitourinary: no complaints Musculoskeletal: no complaints Skin: no complaints Neurologic: no complaints Endocrine: no complaints Lymphatic: no complaints Psychological: no complaints Immunologic: no complaints Past Medical History Medical History: colitis, coronary artery disease, diabetes, hypertension Past Surgical History Past Surgical Hx: no surgical history Family History Significant Family History: diabetes Social History Alcohol Use: rarely Smoking Status: Never smoker Drug Use: none Exam/Review of Systems Vital Signs Vitals Vital Signs Date Time Temp Pulse Resp B/P Pulse Ox O2 Delivery O2 Flow Rate FiO2 10/29/16 12:31 98.0 68 19 153/67 97 10/28/16 15:49 Room Air Intake and Output 10/28/16 10/28/16 10/29/16 15:00 23:00 07:00 Intake Total 350 ml 240 ml Output Total 800 ml Balance -450 ml 240 ml Exam Constitutional: alert, oriented, well developed Psych: nl mood/affect, no complaints Head: atraumatic, normocephalic Eyes: EOMI, PERRL, nl conjunctiva, nl lids, nl sclera ENMT: nl external ears & nose, nl lips & teeth, nl nasal mucosa & septum Neck: non-tender, supple Respiratory: clear to auscultation, normal air movement Cardiovascular: nl pulses, regular rate and rhythm Gastrointestinal: bowel sounds, nl liver, spleen, non-tender, soft, No ascites, No distended, No firm, No hepatomegaly, No mass, No rebound or guarding, No splenomegaly, No surgical scars, No tender Musculoskeletal: nl extremities to inspection, nl gait and stance Extremities: normal pulses Neurological: [employer] II-XII intact, nl mental status, nl speech, nl strength Skin: nl turgor, No rash or lesions Lymph: nl lymph nodes Results Result Diagram: 10/29/16 0713 10/29/16 0713 Results 24 hrs Laboratory Tests Test 10/28/16 18:00 10/29/16 07:13 Urine Color LT. YELLOW Urine Clarity CLEAR Urine pH 8.0 Urine Specific [place] 1.010 Urine Ketones NEGATIVE Urine Nitrite NEGATIVE Urine Bilirubin NEGATIVE Urine Urobilinogen 0.2 E.U./dL Urine Leukocyte Esterase NEGATIVE Urine Hemoglobin NEGATIVE Urine Glucose NEGATIVE Urine Total Protein NEGATIVE White Blood Count 4.5 #L Red Blood Count 3.55 L Hemoglobin 8.8 L Hematocrit 28.5 L Mean Corpuscular Volume 80.3 L Mean Corpuscular Hemoglobin 24.8 L Mean Corpuscular Hemoglobin Concent 30.9 L Red Cell Distribution Width 14.5 Platelet Count 196 Mean Platelet Volume 9.3 Neutrophils % 57.6 Lymphocytes % 28.0 Monocytes % 7.9 Eosinophils % 5.9 Basophils % 0.4 Nucleated Red Blood Cells % 0.0 Neutrophils # 2.6 Lymphocytes # 1.3 Monocytes # 0.4 Eosinophils # 0.3 Basophils # 0.0 Nucleated Red Blood Cells # 0.0 Sodium Level 139 Potassium Level 4.4 Chloride Level 100 Carbon Dioxide Level 30 Anion Gap 13 Blood Urea Nitrogen 19 Creatinine 0.96 Glucose Level 214 Calcium Level 8.5 Magnesium Level 2.1 Triglycerides Level 137 Cholesterol Level 101 LDL Cholesterol, Calculated 45 HDL Cholesterol 29 L Cholesterol/HDL Ratio 3.4 Medications Medications Current Medications Lorazepam (Ativan) 0.5 mg Q6H PRN IV ANXIETY; Start 10/28/16 at 04:00 Metoclopramide HCl (Reglan) 10 mg Q6H PRN IV NAUSEA AND/OR VOMITING; Start at 04:00 Acetaminophen (Tylenol Supp) 650 mg Q6H PRN [place] PAIN LEVEL 1-3 OR FEVER; Start 10/28/16 at 04:00 Morphine Sulfate (morphine) 2 mg Q4H PRN IV PAIN LEVEL 7-10 Last administered on 10/28/16 10:09; Admin Dose 2 MG; Start 10/28/16 at 04:00 Famotidine (Pepcid Iv) 20 mg Q12 IV Last administered on 10/29/16 09:04; Admin Dose 20 MG; Start 10/28/16 at 04:00 Aspirin (Aspirin) 81 mg DAILY PO Last administered on 10/29/16 09:04; Admin Dose 81 MG; Start 10/28/16 at 09:00 Atorvastatin Calcium (Lipitor) 40 mg HS PO Last administered on 10/28/16 21:12 ; Admin Dose 40 MG; Start 10/28/16 at 21:00 Metoprolol Tartrate (Lopressor) 25 mg BID PO Last administered on 10/29/16 09: 05; Admin Dose 25 MG; Start 10/28/16 at 09:00 Morphine Sulfate (morphine) 2 mg Q2H PRN IV FOR NON CARDIAC PAIN (4-10) Last administered on 10/28/16 15:13; Admin Dose 2 MG; Start 10/28/16 at 14:00 Ondansetron HCl (Zofran Inj) 4 mg Q4H PRN IV NAUSEA AND/OR VOMITING; Start at 14:00 Enoxaparin Sodium (Lovenox) 40 mg DAILY SC Last administered on 10/29/16 09:06 ; Admin Dose 40 MG; Start 10/29/16 at 09:00 Acetaminophen/ Hydrocodone Bitart ([place] (5/325)) 1 tab Q4H PRN PO MODERATE PAIN LEVEL 4-6 Last administered on 10/29/16 00:09; Admin Dose 1 TAB; Start at 00:00 Acetaminophen/ Hydrocodone Bitart ([place] (5/325)) 2 tab Q4H PRN PO SEVERE PAIN LEVEL 7-10; Start 10/29/16 at 00:00 Mupirocin (Bactroban) 1 applic BID TOP Last administered on 10/29/16t 14:45; Admin Dose 1 APPLIC; Start 10/29/16 at 14:00; Stop 11/12/16 at 13:59 DIANA BELL MD Oct 29, 2016 16:14
--- NOTE | 2016-10-29 20:43 | PN ---
Date/Time of Note Date/Time of Note DATE: 10/29/16 TIME: 20:42 Assessment/Plan Lines/Catheters IV Catheter Type (from [facility]): Saline Lock Assessment/Plan Chief Complaint/Hosp Course MPRESSION: 1. Coronary artery disease. 2. Status post myocardial infarction. 3. Anemia. 4. Gastrointestinal bleeding. 5. Seizure disorder. 6. Peripheral vascular disease status post foot amputation. RECOMMENDATIONS: The patient is a candidate to undergo coronary artery bypass grafting; however, his GI bleeding needs to be fully evaluated because during the course of open heart surgery, he would be given a very large dose of heparin. This was discussed with the patient. Will discuss with the referring physicians. Problems: Subjective 24 Hr Interval Summary Constitutional: improved Exam/Review of Systems Vital Signs Vitals Vital Signs Date Time Temp Pulse Resp B/P Pulse Ox O2 Delivery O2 Flow Rate FiO2 10/29/16 20:23 76 10/29/16 19:40 98.6 20 134/75 98 10/28/16 15:49 Room Air Intake and Output 10/28/16 10/28/16 10/29/16 14:59 22:59 06:59 Intake Total 350 ml 240 ml Output Total 800 ml Balance -450 ml 240 ml Exam ENMT: mucosa pink and moist, nl external ears & nose, nl lips & teeth, nl nasal mucosa & septum Neck: non-tender, supple Respiratory: clear to auscultation, normal air movement Cardiovascular: nl pulses, regular rate and rhythm Gastrointestinal: nl liver, spleen, non-tender, soft Results Result Diagram: 10/29/16 0713 10/29/16 0713 JOAN WATTS MD Oct 29, 2016 20:43
[2016-10-29] MEDS: ATORVASTATIN 40 MG TAB PO SCH (20:57)
--- NOTE | 2016-10-29 23:33 | CONS ---
Date/Time of Note Date/Time of Note DATE: 10/29/16 TIME: 23:33 Assessment/Plan Assessment/Plan Chief Complaint/Hosp Course -Anemia S/P EGD ([facility]) Esophagitis POST BMBX- AT [facility] ASPIRATE - NEG, THE REST -P AWAIT FINAL PATH MONITOR BLOOD COUNT CLOSELY NSTEMI Multivessel CAD History of seizure History of alcoholism History of C difficile colitis Diabetes mellitus Problems: Consultation Date/Type/Reason Admit Date/Time Oct 27, 2016 at 22:32 Initial Consult Date 10/28/16 Type of Consultation: hemeonc 24 HR Interval Summary Free Text/Dictation all noted bmbx- P Exam/Review of Systems Vital Signs Vitals Vital Signs Date Time Temp Pulse Resp B/P Pulse Ox O2 Delivery O2 Flow Rate FiO2 10/29/16 20:23 76 10/29/16 19:40 98.6 20 134/75 98 10/28/16 15:49 Room Air Intake and Output 10/28/16 10/28/16 10/29/16 15:00 23:00 07:00 Intake Total 350 ml 240 ml Output Total 800 ml Balance -450 ml 240 ml Exam Constitutional: alert Neck: supple Respiratory: clear to auscultation, diminished breath sounds, No crackles/rales Cardiovascular: nl pulses, regular rate and rhythm Gastrointestinal: soft Extremities: normal pulses Results Result Diagram: 10/29/1613 10/29/16 0713 Results 24 hrs Laboratory Tests Test 10/29/16 07:13 White Blood Count 4.5 #L Red Blood Count 3.55 L Hemoglobin 8.8 L Hematocrit 28.5 L Mean Corpuscular Volume 80.3 L Mean Corpuscular Hemoglobin 24.8 L Mean Corpuscular Hemoglobin Concent 30.9 L Red Cell Distribution Width 14.5 Platelet Count 196 Mean Platelet Volume 9.3 Neutrophils % 57.6 Lymphocytes % 28.0 Monocytes % 7.9 Eosinophils % 5.9 Basophils % 0.4 Nucleated Red Blood Cells % 0.0 Neutrophils # 2.6 Lymphocytes # 1.3 Monocytes # 0.4 Eosinophils # 0.3 Basophils # 0.0 Nucleated Red Blood Cells # 0.0 Sodium Level 139 Potassium Level 4.4 Chloride Level 100 Carbon Dioxide Level 30 Anion Gap 13 Blood Urea Nitrogen 19 Creatinine 0.96 Glucose Level 214 Calcium Level 8.5 Magnesium Level 2.1 Triglycerides Level 137 Cholesterol Level 101 LDL Cholesterol, Calculated 45 HDL Cholesterol 29 L Cholesterol/HDL Ratio 3.4 Medications Medications Current Medications Lorazepam (Ativan) 0.5 mg Q6H PRN IV ANXIETY; Start 10/28/16 at 04:00 Metoclopramide HCl (Reglan) 10 mg Q6H PRN IV NAUSEA AND/OR VOMITING; Start at 04:00 Acetaminophen (Tylenol Supp) 650 mg Q6H PRN [place] PAIN LEVEL 1-3 OR FEVER; Start 10/28/16 at 04:00 Morphine Sulfate (morphine) 2 mg Q4H PRN IV PAIN LEVEL 7-10 Last administered on 10/28/16 10:09; Admin Dose 2 MG; Start 10/28/16 at 04:00 Aspirin (Aspirin) 81 mg DAILY PO Last administered on 10/29/16 09:04; Admin Dose 81 MG; Start 10/28/16 at 09:00 Atorvastatin Calcium (Lipitor) 40 mg HS PO Last administered on 10/29/16 20:57 ; Admin Dose 40 MG; Start 10/28/16 at 21:00 Metoprolol Tartrate (Lopressor) 25 mg BID PO Last administered on 10/29/16 20: 59; Admin Dose 25 MG; Start 10/28/16 at 09:00 Morphine Sulfate (morphine) 2 mg Q2H PRN IV FOR NON CARDIAC PAIN (4-10) Last administered on 10/28/16 15:13; Admin Dose 2 MG; Start 10/28/16 at 14:00 Ondansetron HCl (Zofran Inj) 4 mg Q4H PRN IV NAUSEA AND/OR VOMITING; Start at 14:00 Enoxaparin Sodium (Lovenox) 40 mg DAILY SC Last administered on 10/29/16 09:06 ; Admin Dose 40 MG; Start 10/29/16 at 09:00 Acetaminophen/ Hydrocodone Bitart ([place] (5/325)) 1 tab Q4H PRN PO MODERATE PAIN LEVEL 4-6 Last administered on 10/29/16 00:09; Admin Dose 1 TAB; Start at 00:00 Acetaminophen/ Hydrocodone Bitart ([place] (5/325)) 2 tab Q4H PRN PO SEVERE PAIN LEVEL 7-10; Start 10/29/16 at 00:00 Mupirocin (Bactroban) 1 applic BID TOP Last administered on 10/29/16t 20:58; Admin Dose 1 APPLIC; Start 10/29/16 at 14:00; Stop 11/12/16 at 13:59 Pantoprazole (Protonix Iv) 40 mg BID@06,18 IV ; Start 10/30/16 at 06:00 BETO PADILLA MD Oct 29, 2016 23:33
[2016-10-30] VITALS (11 sets, daily range): BP systolic 117–152; BP diastolic 57–82; PULSE 72–76; RESP 20
[2016-10-30] MEDS: PANTOPRAZOLE 40 MG INJ IV SCH ×2 (05:27→18:13)
[2016-10-30 08:33] LABS: ADD SCAN DIFF NO
[2016-10-30 08:49] LABS: BASOPHILS % 0.4 % (0.0-2.0); EOSINOPHILS # 0.3 10^3/ul (0.0-0.5); EOSINOPHILS % 4.9 % (0.0-7.0); HEMATOCRIT 32.4 % (42.0-52.0); HEMOGLOBIN 9.8 g/dl (14.0-18.0); LYMPHOCYTES # 1.3 10^3/ul (0.8-2.9); LYMPHOCYTES % 23.2 % (15.0-51.0); MEAN CORPUSCULAR HEMOGLOBIN 24.1 pg (29.0-33.0); MEAN CORPUSCULAR HGB CONC 30.2 g/dl (32.0-37.0); MEAN CORPUSCULAR VOLUME 79.6 fl (82.0-101.0); MEAN PLATELET VOLUME 9.1 fl (7.4-10.4); MONOCYTE # 0.4 10^3/ul (0.3-0.9); MONOCYTES % 7.1 % (0.0-11.0); NEUTROPHIL # 3.6 10^3/ul (1.6-7.5); NEUTROPHILS % 64.2 % (39.0-77.0); PLATELET COUNT 261 10^3/UL (140-415); RED BLOOD COUNT 4.07 10^6/ul (4.70-6.10); RED CELL DISTRIBUTION WIDTH 14.9 % (11.5-14.5); WHITE BLOOD COUNT 5.5 10^3/ul (4.8-10.8)
[2016-10-30 09:23] LABS: POTASSIUM 4.2 mmol/L (3.5-5.1)
[2016-10-30 09:25] LABS: ALBUMIN/GLOBULIN RATIO 1.02; BILIRUBIN,INDIRECT 0.2 mg/dl (0-1.1); BILIRUBIN,TOTAL 0.2 mg/dl (0.2-1.3); CREATININE 0.94 mg/dl (0.61-1.24); TOTAL PROTEIN 7.9 g/dl (6.1-8.1)
[2016-10-30 09:26] LABS: CALCIUM 9.2 mg/dl (8.4-10.2); MAGNESIUM 2.1 mg/dl (1.7-2.5); PHOSPHORUS 3.6 mg/dl (2.5-4.9)
[2016-10-30] MEDS: ASPIRIN 81 MG TAB PO SCH (09:26)
[2016-10-30] MEDS: METOPROLOL 25 MG TAB PO SCH ×2 (09:27→20:50)
[2016-10-30] MEDS: MUPIROCIN 2% 15 GM CR TOP SCH ×2 (09:28→20:55)
[2016-10-30] MEDS: ENOXAPARIN 40 MG/0.4 ML SYG SC SCH (09:28)
--- NOTE | 2016-10-30 10:08 | CONS ---
Date/Time of Note Date/Time of Note DATE: 10/30/16 TIME: 10:07 Assessment/Plan Assessment/Plan Chief Complaint/Hosp Course NSTEMI: s/p cath with severe CAD CAD: diffuse LAD disease, Cx/OM disease, non-dominant RCA. Will need CABG. Mitral regurgitation: moderate by echo at [place] but pt had decompensated heart failure. By cath only 1+ and by repeat echo only mild. Acute on chronic diastolic heart failure: diuresed and had thoracentesis at [facility]. No euvolemic by exam. Seizure disorder: initial presentation was seizure ?Hematemesis: pt denies but had an EGD which showed Barretts esophagitis but otherwise no bleeding Lymphadenopathy: s/p biopsy, results pending Bone marrow biopsy: results pending DM Right transmetatarsal amputation -ASA, lipitor -metoprolol 25mg BID -awaiting surgery Problems: Consultation Date/Type/Reason Admit Date/Time Oct 27, 2016 at 22:32 Type of Consultation: Cardiology 24 HR Interval Summary Free Text/Dictation No o/n events. Awaiting surgery Exam/Review of Systems Vital Signs Vitals Vital Signs Date Time Temp Pulse Resp B/P Pulse Ox O2 Delivery O2 Flow Rate FiO2 10/30/16 08:16 97.9 69 20 124/65 96 10/28/16 15:49 Room Air Intake and Output 10/29/16 10/29/16 10/30/16 15:00 23:00 07:00 Intake Total 740 ml Balance 740 ml Results Result Diagram: 10/30/16 0713 10/30/16 0713 Results 24 hrs Laboratory Tests Test 10/30/16 07:13 White Blood Count 5.5 # Red Blood Count 4.07 L Hemoglobin 9.8 L Hematocrit 32.4 L Mean Corpuscular Volume 79.6 L Mean Corpuscular Hemoglobin 24.1 L Mean Corpuscular Hemoglobin Concent 30.2 L Red Cell Distribution Width 14.9 H Platelet Count 261 # Mean Platelet Volume 9.1 Neutrophils % 64.2 Lymphocytes % 23.2 Monocytes % 7.1 Eosinophils % 4.9 Basophils % 0.4 Nucleated Red Blood Cells % 0.0 Neutrophils # 3.6 Lymphocytes # 1.3 Monocytes # 0.4 Eosinophils # 0.3 Basophils # 0.0 Nucleated Red Blood Cells # 0.0 Sodium Level 140 Potassium Level 4.2 Chloride Level 98 Carbon Dioxide Level 31 Anion Gap 15 Blood Urea Nitrogen 18 Creatinine 0.94 Glucose Level 174 Calcium Level 9.2 Phosphorus Level 3.6 Magnesium Level 2.1 Total Bilirubin 0.2 Direct Bilirubin 0.00 Indirect Bilirubin 0.2 Aspartate Amino Transf (AST/SGOT) 25 Alanine Aminotransferase (ALT/SGPT) 22 Alkaline Phosphatase 148 H Total Protein 7.9 Albumin 4.0 Globulin 3.90 H Albumin/Globulin Ratio 1.02 Medications Medications Current Medications Lorazepam (Ativan) 0.5 mg Q6H PRN IV ANXIETY; Start 10/28/16 at 04:00 Metoclopramide HCl (Reglan) 10 mg Q6H PRN IV NAUSEA AND/OR VOMITING; Start at 04:00 Acetaminophen (Tylenol Supp) 650 mg Q6H PRN [place] PAIN LEVEL 1-3 OR FEVER; Start 10/28/16 at 04:00 Morphine Sulfate (morphine) 2 mg Q4H PRN IV PAIN LEVEL 7-10 Last administered on 10/28/16 10:09; Admin Dose 2 MG; Start 10/28/16 at 04:00 Aspirin (Aspirin) 81 mg DAILY PO Last administered on 10/30/16 09:26; Admin Dose 81 MG; Start 10/28/16 at 09:00 Atorvastatin Calcium (Lipitor) 40 mg HS PO Last administered on 10/29/16 20:57 ; Admin Dose 40 MG; Start 10/28/16 at 21:00 Metoprolol Tartrate (Lopressor) 25 mg BID PO Last administered on 10/30/16 09: 27; Admin Dose 25 MG; Start 10/28/16 at 09:00 Morphine Sulfate (morphine) 2 mg Q2H PRN IV FOR NON CARDIAC PAIN (4-10) Last administered on 10/28/16 15:13; Admin Dose 2 MG; Start 10/28/16 at 14:00 Ondansetron HCl (Zofran Inj) 4 mg Q4H PRN IV NAUSEA AND/OR VOMITING; Start at 14:00 Enoxaparin Sodium (Lovenox) 40 mg DAILY SC Last administered on 10/30/16 09:28 ; Admin Dose 40 MG; Start 10/29/16 at 09:00 Acetaminophen/ Hydrocodone Bitart ([place] (5/325)) 1 tab Q4H PRN PO MODERATE PAIN LEVEL 4-6 Last administered on 10/29/16 00:09; Admin Dose 1 TAB; Start at 00:00 Acetaminophen/ Hydrocodone Bitart ([place] (5/325)) 2 tab Q4H PRN PO SEVERE PAIN LEVEL 7-10; Start 10/29/16 at 00:00 Mupirocin (Bactroban) 1 applic BID TOP Last administered on 10/30/16 09:28; Admin Dose 1 APPLIC; Start 10/29/16 at 14:00; Stop 11/12/16 at 13:59 Pantoprazole (Protonix Iv) 40 mg BID@06,18 IV Last administered on 10/30/16 05 :27; Admin Dose 40 MG; Start 10/30/16 at 06:00 TOMMIE PERALTA Oct 30, 2016 10:08
--- NOTE | 2016-10-30 11:25 | RADRPT ---
PROCEDURE: XR Chest. CLINICAL INDICATION: Preoperative evaluation. TECHNIQUE: Single frontal chest x-ray. COMPARISON: None available. FINDINGS: The cardiomediastinal silhouette is enlarged. There is mild diffuse prominence of the interstitium without focal consolidation, effusion, or pneumothorax. There are no acute osseous abnormalities. IMPRESSION: 1. Cardiomegaly with mild diffuse prominence of the interstitium, which is nonspecific. Correlate clinically for mild CHF. RPTAT: GG .Ayo Lara MD, Date Time Electronically viewed and signed by .Ayo Lara MD, on 10/30/2016 11:25 .P/
--- NOTE | 2016-10-30 12:00 | PN ---
Date/Time of Note Date/Time of Note DATE: 10/30/16 TIME: 11:56 Assessment/Plan Lines/Catheters IV Catheter Type (from Nrs): Saline Lock Assessment/Plan Chief Complaint/Hosp Course MPRESSION: 1. Coronary artery disease. 2. Status post myocardial infarction. 3. Anemia. 4. Gastrointestinal bleeding. 5. Seizure disorder. 6. Peripheral vascular disease status post foot amputation. RECOMMENDATIONS: The patient is a candidate to undergo coronary artery bypass grafting; however, his GI bleeding needs to be fully evaluated because during the course of open heart surgery, he would be given a very large dose of heparin. Plan for CABG EARLY NEXT WEEK This was discussed with the patient. Will discuss with the referring physicians. Problems: Subjective 24 Hr Interval Summary Constitutional: improved Pain Control: mild Exam/Review of Systems Vital Signs Vitals Vital Signs Date Time Temp Pulse Resp B/P Pulse Ox O2 Delivery O2 Flow Rate FiO2 10/30/16 08:16 97.9 69 20 124/65 96 10/28/16 15:49 Room Air Intake and Output 10/29/16 10/29/16 10/30/16 15:00 23:00 07:00 Intake Total 740 ml Balance 740 ml Exam ENMT: mucosa pink and moist, nl external ears & nose, nl lips & teeth, nl nasal mucosa & septum Neck: non-tender, supple Respiratory: clear to auscultation, normal air movement Cardiovascular: nl pulses, regular rate and rhythm Gastrointestinal: nl liver, spleen, non-tender, soft Results Result Diagram: 10/30/16 0713 10/30/16 0713 JOAN WATTS MD Oct 30, 2016 12:00
[2016-10-30] MEDS: morphine 2 MG INJ IV PRN (12:33)
--- NOTE | 2016-10-30 13:00 | PN ---
Date/Time of Note Date/Time of Note DATE: 10/30/16 TIME: 12:57 Assessment/Plan VTE Prophylaxis VTE Prophylaxis Intervention: LMWH Lines/Catheters IV Catheter Type (from Nrs): Saline Lock Assessment/Plan Chief Complaint/Hosp Course S-61-yr-M admitted to [facility] w I believe with seizure. Further eval, noted abn trop. Additional concern for GIb. -EGD:[facility]?. Transferred here for abn trop. -sp cath w multivessel dz. 10/29-no active cp, dyspnea, edema. No fever. Denies alcohol use or active bleeding. No recent tongue bite or repeat seizure. 10/30-cough with no dyspnea. No hemoptysis, fever, or cp. Today has diarrhea and abdominal pain, possibly colicky. Pepcid changed to PPI. No active bleed. O-vss PE No pallor adenopathy JVD Reg no m/r/g CTAB Bs + nt nd; no R/R/G No edema. +TMA status A/P 1. NSTMI; stable cont medical mngmnt 2. Multivessel CAD. CABG eval. Carotids. will need GI, ID, & Onc 'clearance 1st . 3. Breakthrough seizure on ch seizure dz. Stable cont therapy. 4. Past alcoholism 5. Remote tobacco exposure/marijuana. 6. 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 Treated for maybe a year. No recent hemoptysis wt loss. 7. Ho C diff colitis; presently with recurrent diarrhea. 8. TMA status 9. Ftt. Placement needed on dc 10. Chr Dm/metabolic syndrome 11. Htn 12. Probable PAD 13. Recent decompensated CHF. EF 55% 14. Pl effusion. Probable exudative, but CHF related. 15. Valvular heart disease; mild MR 16. Lymphadenopathy. BMBx pending. No ho recent wt loss. Retired from the [employer]. Remote colonoscopy negative. Again probable ho TB 17. MRSA nares colonized 18. Diarrhea, ro C dif vs benign/med's induced. Problems: Exam/Review of Systems Vital Signs Vitals Vital Signs Date Time Temp Pulse Resp B/P Pulse Ox O2 Delivery O2 Flow Rate FiO2 10/30/16 12:11 97.7 79 20 132/77 96 10/28/16 15:49 Room Air Intake and Output 10/29/16 10/29/16 10/30/16 15:00 23:00 07:00 Intake Total 740 ml Balance 740 ml Results Result Diagram: 10/30/1613 10/30/1613 Results 24 hrs Laboratory Tests Test 10/30/16 07:13 White Blood Count 5.5 # Red Blood Count 4.07 L Hemoglobin 9.8 L Hematocrit 32.4 L Mean Corpuscular Volume 79.6 L Mean Corpuscular Hemoglobin 24.1 L Mean Corpuscular Hemoglobin Concent 30.2 L Red Cell Distribution Width 14.9 H Platelet Count 261 # Mean Platelet Volume 9.1 Neutrophils % 64.2 Lymphocytes % 23.2 Monocytes % 7.1 Eosinophils % 4.9 Basophils % 0.4 Nucleated Red Blood Cells % 0.0 Neutrophils # 3.6 Lymphocytes # 1.3 Monocytes # 0.4 Eosinophils # 0.3 Basophils # 0.0 Nucleated Red Blood Cells # 0.0 Sodium Level 140 Potassium Level 4.2 Chloride Level 98 Carbon Dioxide Level 31 Anion Gap 15 Blood Urea Nitrogen 18 Creatinine 0.94 Glucose Level 174 Calcium Level 9.2 Phosphorus Level 3.6 Magnesium Level 2.1 Total Bilirubin 0.2 Direct Bilirubin 0.00 Indirect Bilirubin 0.2 Aspartate Amino Transf (AST/SGOT) 25 Alanine Aminotransferase (ALT/SGPT) 22 Alkaline Phosphatase 148 H Total Protein 7.9 Albumin 4.0 Globulin 3.90 H Albumin/Globulin Ratio 1.02 Medications Medications Current Medications Lorazepam (Ativan) 0.5 mg Q6H PRN IV ANXIETY; Start 10/28/16 at 04:00 Metoclopramide HCl (Reglan) 10 mg Q6H PRN IV NAUSEA AND/OR VOMITING; Start at 04:00 Acetaminophen (Tylenol Supp) 650 mg Q6H PRN MD PAIN LEVEL 1-3 OR FEVER; Start 10/28/16 at 04:00 Morphine Sulfate (morphine) 2 mg Q4H PRN IV PAIN LEVEL 7-10 Last administered on 10/30/16 12:33; Admin Dose 2 MG; Start 10/28/16 at 04:00 Aspirin (Aspirin) 81 mg DAILY PO Last administered on 10/30/16 09:26; Admin Dose 81 MG; Start 10/28/16 at 09:00 Atorvastatin Calcium (Lipitor) 40 mg HS PO Last administered on 10/29/16 20:57 ; Admin Dose 40 MG; Start 10/28/16 at 21:00 Metoprolol Tartrate (Lopressor) 25 mg BID PO Last administered on 10/30/16 09: 27; Admin Dose 25 MG; Start 10/28/16 at 09:00 Morphine Sulfate (morphine) 2 mg Q2H PRN IV FOR NON CARDIAC PAIN (4-10) Last administered on 10/28/16 15:13; Admin Dose 2 MG; Start 10/28/16 at 14:00 Ondansetron HCl (Zofran Inj) 4 mg Q4H PRN IV NAUSEA AND/OR VOMITING; Start at 14:00 Enoxaparin Sodium (Lovenox) 40 mg DAILY SC Last administered on 10/30/16 09:28 ; Admin Dose 40 MG; Start 10/29/16 at 09:00 Acetaminophen/ Hydrocodone Bitart ([place] (5/325)) 1 tab Q4H PRN PO MODERATE PAIN LEVEL 4-6 Last administered on 10/29/16 00:09; Admin Dose 1 TAB; Start at 00:00 Acetaminophen/ Hydrocodone Bitart ([place] (5/325)) 2 tab Q4H PRN PO SEVERE PAIN LEVEL 7-10; Start 10/29/16 at 00:00 Mupirocin (Bactroban) 1 applic BID TOP Last administered on 10/30/16 09:28; Admin Dose 1 APPLIC; Start 10/29/16 at 14:00; Stop 11/12/16 at 13:59 Pantoprazole (Protonix Iv) 40 mg BID@18 IV Last administered on 10/30/16 05 :27; Admin Dose 40 MG; Start 10/30/16 at 06:00 MARIANELA RODRÍGUEZ MD Oct 30, 2016 13:00
--- NOTE | 2016-10-30 13:36 | RADRPT ---
Vent Rate: 72 bpm RR Interval: 0 msec TX Interval: 204 msec QRS Duration: 96 msec QT Interval: 396 msec QTC Interval: 433 msec P-R-T [place]: 30 - 58 - 44 degrees Normal sinus rhythm Normal ECG No previous tracing available for comparison Electronically Signed By: Matt Mclean [id number]
[2016-10-30] MEDS: LACTOBACILLUS CHEW TAB PO SCH ×2 (14:30→20:50)
--- NOTE | 2016-10-30 14:36 | CONS ---
Date/Time of Note Date/Time of Note DATE: 10/30/16 TIME: 14:35 Assessment/Plan Assessment/Plan Additional Assessment/Plan Assessment -Anemia (Stable hgb 8.8 S/P EGD ([facility]) Esophagitis NSTEMI Multivessel CAD History of seizure History of alcoholism History of C difficile colitis Diabetes mellitus Plan - stool for occult blood - proton pump inhibitor - Further recommendations depend on clinical course - Patient seen in collaboration with Dr. Bradshaw Consultation Date/Type/Reason Admit Date/Time Oct 27, 2016 at 22:32 Initial Consult Date 10/28/16 Type of Consultation: GI 24 HR Interval Summary Free Text/Dictation Tolerating diet Abdominal pain secondary to C. difficile and multiple bowel movement Hemoglobin stable Exam/Review of Systems Vital Signs Vitals Vital Signs Date Time Temp Pulse Resp B/P Pulse Ox O2 Delivery O2 Flow Rate FiO2 10/30/16 12:11 97.7 79 20 132/77 96 10/28/16 15:49 Room Air Intake and Output 10/29/16 10/29/16 10/30/16 15:00 23:00 07:00 Intake Total 740 ml Balance 740 ml Exam Constitutional: alert, oriented, well developed Psych: nl mood/affect Head: normocephalic Eyes: EOMI, nl conjunctiva, nl lids ENMT: nl external ears & nose, nl lips & teeth, nl nasal mucosa & septum Respiratory: clear to auscultation, normal air movement Cardiovascular: regular rate and rhythm Gastrointestinal: soft, diffuse tenderness Musculoskeletal: nl extremities to inspection Neurological: REIMBURSEMENT ANALYST II-XII intact Results Result Diagram: 10/30/16 0713 10/30/16 0713 Results 24 hrs Laboratory Tests Test 10/30/16 07:13 White Blood Count 5.5 # Red Blood Count 4.07 L Hemoglobin 9.8 L Hematocrit 32.4 L Mean Corpuscular Volume 79.6 L Mean Corpuscular Hemoglobin 24.1 L Mean Corpuscular Hemoglobin Concent 30.2 L Red Cell Distribution Width 14.9 H Platelet Count 261 # Mean Platelet Volume 9.1 Neutrophils % 64.2 Lymphocytes % 23.2 Monocytes % 7.1 Eosinophils % 4.9 Basophils % 0.4 Nucleated Red Blood Cells % 0.0 Neutrophils # 3.6 Lymphocytes # 1.3 Monocytes # 0.4 Eosinophils # 0.3 Basophils # 0.0 Nucleated Red Blood Cells # 0.0 Sodium Level 140 Potassium Level 4.2 Chloride Level 98 Carbon Dioxide Level 31 Anion Gap 15 Blood Urea Nitrogen 18 Creatinine 0.94 Glucose Level 174 Calcium Level 9.2 Phosphorus Level 3.6 Magnesium Level 2.1 Total Bilirubin 0.2 Direct Bilirubin 0.00 Indirect Bilirubin 0.2 Aspartate Amino Transf (AST/SGOT) 25 Alanine Aminotransferase (ALT/SGPT) 22 Alkaline Phosphatase 148 H Total Protein 7.9 Albumin 4.0 Globulin 3.90 H Albumin/Globulin Ratio 1.02 Medications Medications Current Medications Lorazepam (Ativan) 0.5 mg Q6H PRN IV ANXIETY; Start 10/28/16 at 04:00 Metoclopramide HCl (Reglan) 10 mg Q6H PRN IV NAUSEA AND/OR VOMITING; Start at 04:00 Acetaminophen (Tylenol Supp) 650 mg Q6H PRN [place] PAIN LEVEL 1-3 OR FEVER; Start 10/28/16 at 04:00 Morphine Sulfate (morphine) 2 mg Q4H PRN IV PAIN LEVEL 7-10 Last administered on 10/30/16 12:33; Admin Dose 2 MG; Start 10/28/16 at 04:00 Aspirin (Aspirin) 81 mg DAILY PO Last administered on 10/30/16 09:26; Admin Dose 81 MG; Start 10/28/16 at 09:00 Atorvastatin Calcium (Lipitor) 40 mg HS PO Last administered on 10/29/16 20:57 ; Admin Dose 40 MG; Start 10/28/16 at 21:00 Metoprolol Tartrate (Lopressor) 25 mg BID PO Last administered on 10/30/16 09: 27; Admin Dose 25 MG; Start 10/28/16 at 09:00 Morphine Sulfate (morphine) 2 mg Q2H PRN IV FOR NON CARDIAC PAIN (4-10) Last administered on 10/28/16 15:13; Admin Dose 2 MG; Start 10/28/16 at 14:00 Ondansetron HCl (Zofran Inj) 4 mg Q4H PRN IV NAUSEA AND/OR VOMITING; Start at 14:00 Enoxaparin Sodium (Lovenox) 40 mg DAILY SC Last administered on 10/30/16 09:28 ; Admin Dose 40 MG; Start 10/29/16 at 09:00 Acetaminophen/ Hydrocodone Bitart ([place] (5/325)) 1 tab Q4H PRN PO MODERATE PAIN LEVEL 4-6 Last administered on 10/29/16 00:09; Admin Dose 1 TAB; Start at 00:00 Acetaminophen/ Hydrocodone Bitart ([place] (5/325)) 2 tab Q4H PRN PO SEVERE PAIN LEVEL 7-10; Start 10/29/16 at 00:00 Mupirocin (Bactroban) 1 applic BID TOP Last administered on 10/30/16 09:28; Admin Dose 1 APPLIC; Start 10/29/16 at 14:00; Stop 11/12/16 at 13:59 Pantoprazole (Protonix Iv) 40 mg BID@06,18 IV Last administered on 10/30/16 05 :27; Admin Dose 40 MG; Start 10/30/16 at 06:00 Lactobacillus Acidoph/Bulgaricus (Floranex) 1 tab BID PO Last administered on 14:30; Admin Dose 1 TAB; Start 10/30/16 at 13:00 YULIA MCNEAL Oct 30, 2016 14:36
--- NOTE | 2016-10-30 16:33 | CONS ---
Date/Time of Note Date/Time of Note DATE: 10/30/16 TIME: 16:15 Assessment/Plan Assessment/Plan Chief Complaint/Hosp Course ID SHORT NOTE -> full note dictation to follow * Chart reviewed, no fevers, WBC normal, OFF ABX * 10/30/16 0713 10/30/16 0713 ID Assessment/Plan ID Assessment/Plan ID Additional Assessment/Plan 61 yo M retired from the [employer] w/PMHx ETOH abuse, former tobaccoism admit [facility] with: 1. NSTEMI 2. Multivessel CAD-> Per notes plan for CABG 3. s/p Recent decompensated CHF. EF 55% 4. Pl effusion. Probable exudative, but CHF related. 5. Seizure Disorder w/breakthrough SZs 6. Diabetes mellitus 7. Anemia (Stable hgb 8.8 S/P EGD ([facility]) Esophagitis Hx of remote Colonscopy (-) 8. Current diarrhea w/hx of C difficile colitis-> (-)C.Diff toxin 10/30/16 * NOTED: Patient on REGLAN 9. TMA status -> Probable PAD 10. HTN 11. 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 Treated for maybe a year. No recent hemoptysis wt loss. 16. Lymphadenopathy. BMBx pending. (+)MRSA Nares Colonization CURRENT ABX: None INITIAL ID RECOMMENDATIONS 1. Bactroban to bilateral nares for MRSA=> Onboard * Will not add Rifampin for MRSA decolonization at this time due to Drug-Drug interactions with current meds 2. Hibiclens bath QPM = attempt to decolonize prior to possible CABG 3. Further recommendations pending ID follow up. * Thank you for the privilege of consultation referral, will follow the patient closely with you. Problems: Consultation Date/Type/Reason Admit Date/Time Oct 27, 2016 at 22:32 Initial Consult Date 10/28/16 Type of Consultation: ID Exam/Review of Systems Vital Signs Vitals Vital Signs Date Time Temp Pulse Resp B/P Pulse Ox O2 Delivery O2 Flow Rate FiO2 10/30/16 12:11 97.7 79 20 132/77 96 10/28/16 15:49 Room Air Intake and Output 10/29/16 10/29/16 10/30/16 15:00 23:00 07:00 Intake Total 740 ml Balance 740 ml Results Result Diagram: 10/30/16 0713 10/30/16 0713 Results 24 hrs Laboratory Tests Test 10/30/16 07:13 White Blood Count 5.5 # Red Blood Count 4.07 L Hemoglobin 9.8 L Hematocrit 32.4 L Mean Corpuscular Volume 79.6 L Mean Corpuscular Hemoglobin 24.1 L Mean Corpuscular Hemoglobin Concent 30.2 L Red Cell Distribution Width 14.9 H Platelet Count 261 # Mean Platelet Volume 9.1 Neutrophils % 64.2 Lymphocytes % 23.2 Monocytes % 7.1 Eosinophils % 4.9 Basophils % 0.4 Nucleated Red Blood Cells % 0.0 Neutrophils # 3.6 Lymphocytes # 1.3 Monocytes # 0.4 Eosinophils # 0.3 Basophils # 0.0 Nucleated Red Blood Cells # 0.0 Sodium Level 140 Potassium Level 4.2 Chloride Level 98 Carbon Dioxide Level 31 Anion Gap 15 Blood Urea Nitrogen 18 Creatinine 0.94 Glucose Level 174 Calcium Level 9.2 Phosphorus Level 3.6 Magnesium Level 2.1 Total Bilirubin 0.2 Direct Bilirubin 0.00 Indirect Bilirubin 0.2 Aspartate Amino Transf (AST/SGOT) 25 Alanine Aminotransferase (ALT/SGPT) 22 Alkaline Phosphatase 148 H Total Protein 7.9 Albumin 4.0 Globulin 3.90 H Albumin/Globulin Ratio 1.02 Medications Medications Current Medications Lorazepam (Ativan) 0.5 mg Q6H PRN IV ANXIETY; Start 10/28/16 at 04:00 Metoclopramide HCl (Reglan) 10 mg Q6H PRN IV NAUSEA AND/OR VOMITING; Start at 04:00 Acetaminophen (Tylenol Supp) 650 mg Q6H PRN [place] PAIN LEVEL 1-3 OR FEVER; Start 10/28/16 at 04:00 Morphine Sulfate (morphine) 2 mg Q4H PRN IV PAIN LEVEL 7-10 Last administered on 10/30/16 12:33; Admin Dose 2 MG; Start 10/28/16 at 04:00 Aspirin (Aspirin) 81 mg DAILY PO Last administered on 10/30/16 09:26; Admin Dose 81 MG; Start 10/28/16 at 09:00 Atorvastatin Calcium (Lipitor) 40 mg HS PO Last administered on 10/29/16 20:57 ; Admin Dose 40 MG; Start 10/28/16 at 21:00 Metoprolol Tartrate (Lopressor) 25 mg BID PO Last administered on 10/30/16 09: 27; Admin Dose 25 MG; Start 10/28/16 at 09:00 Morphine Sulfate (morphine) 2 mg Q2H PRN IV FOR NON CARDIAC PAIN (4-10) Last administered on 10/28/16 15:13; Admin Dose 2 MG; Start 10/28/16 at 14:00 Ondansetron HCl (Zofran Inj) 4 mg Q4H PRN IV NAUSEA AND/OR VOMITING; Start at 14:00 Enoxaparin Sodium (Lovenox) 40 mg DAILY SC Last administered on 10/30/16 09:28 ; Admin Dose 40 MG; Start 10/29/16 at 09:00 Acetaminophen/ Hydrocodone Bitart ([place] (5/325)) 1 tab Q4H PRN PO MODERATE PAIN LEVEL 4-6 Last administered on 10/29/16 00:09; Admin Dose 1 TAB; Start at 00:00 Acetaminophen/ Hydrocodone Bitart ([place] (5/325)) 2 tab Q4H PRN PO SEVERE PAIN LEVEL 7-10; Start 10/29/16 at 00:00 Mupirocin (Bactroban) 1 applic BID TOP Last administered on 10/30/16 09:28; Admin Dose 1 APPLIC; Start 10/29/16 at 14:00; Stop 11/12/16 at 13:59 Pantoprazole (Protonix Iv) 40 mg BID@06,18 IV Last administered on 10/30/16 05 :27; Admin Dose 40 MG; Start 10/30/16 at 06:00 Lactobacillus Acidoph/Bulgaricus (Floranex) 1 tab BID PO Last administered on 14:30; Admin Dose 1 TAB; Start 10/30/16 at 13:00 MIKE STEINBERG NP Oct 30, 2016 16:25
[2016-10-30] MEDS ORDERED: METF500T4 PO (18:42)
[2016-10-30] MEDS ORDERED: LANT3I SC (18:42)
[2016-10-30] MEDS ORDERED: LAMO200T18 PO (18:42)
[2016-10-30] MEDS: ATORVASTATIN 40 MG TAB PO SCH (20:50)
--- NOTE | 2016-10-30 22:42 | CONS ---
Date/Time of Note Date/Time of Note DATE: 10/30/16 TIME: 22:39 Assessment/Plan Assessment/Plan Chief Complaint/Hosp Course -Anemia (Stable hgb 8.8 S/P EGD ([facility]) Esophagitis POST BMBX- AT [facility] ASPIRATE - NEG, THE REST -P AWAIT FINAL PATH MONITOR BLOOD COUNT CLOSELY NSTEMI Multivessel CAD History of seizure History of alcoholism History of C difficile colitis Diabetes mellitus Problems: Consultation Date/Type/Reason Admit Date/Time Oct 27, 2016 at 22:32 Initial Consult Date 10/28/16 Type of Consultation: HEMEONC 24 HR Interval Summary Free Text/Dictation ALL NOTED HB STABLE NO BLEEDING Exam/Review of Systems Vital Signs Vitals Vital Signs Date Time Temp Pulse Resp B/P Pulse Ox O2 Delivery O2 Flow Rate FiO2 10/30/16 20:29 76 10/30/16 20:19 97.9 20 121/57 97 10/28/16 15:49 Room Air Intake and Output 10/29/16 10/29/16 10/30/16 15:00 23:00 07:00 Intake Total 740 ml Balance 740 ml Exam Exam Constitutional: alert, oriented, well developed Psych: nl mood/affect Head: normocephalic Eyes: EOMI, nl conjunctiva, nl lids ENMT: nl external ears & nose, nl lips & teeth, nl nasal mucosa & septum Respiratory: clear to auscultation, normal air movement Cardiovascular: regular rate and rhythm Gastrointestinal: soft, diffuse tenderness Musculoskeletal: nl extremities to inspection Neurological: [employer]RI[employer]ED [employer]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 II-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 intact Results Result Diagram: 10/30/16 0713 10/30/16 0713 Results 24 hrs Laboratory Tests Test 10/30/16 07:13 White Blood Count 5.5 # Red Blood Count 4.07 L Hemoglobin 9.8 L Hematocrit 32.4 L Mean Corpuscular Volume 79.6 L Mean Corpuscular Hemoglobin 24.1 L Mean Corpuscular Hemoglobin Concent 30.2 L Red Cell Distribution Width 14.9 H Platelet Count 261 # Mean Platelet Volume 9.1 Neutrophils % 64.2 Lymphocytes % 23.2 Monocytes % 7.1 Eosinophils % 4.9 Basophils % 0.4 Nucleated Red Blood Cells % 0.0 Neutrophils # 3.6 Lymphocytes # 1.3 Monocytes # 0.4 Eosinophils # 0.3 Basophils # 0.0 Nucleated Red Blood Cells # 0.0 Sodium Level 140 Potassium Level 4.2 Chloride Level 98 Carbon Dioxide Level 31 Anion Gap 15 Blood Urea Nitrogen 18 Creatinine 0.94 Glucose Level 174 Calcium Level 9.2 Phosphorus Level 3.6 Magnesium Level 2.1 Total Bilirubin 0.2 Direct Bilirubin 0.00 Indirect Bilirubin 0.2 Aspartate Amino Transf (AST/SGOT) 25 Alanine Aminotransferase (ALT/SGPT) 22 Alkaline Phosphatase 148 H Total Protein 7.9 Albumin 4.0 Globulin 3.90 H Albumin/Globulin Ratio 1.02 Medications Medications Current Medications Lorazepam (Ativan) 0.5 mg Q6H PRN IV ANXIETY; Start 10/28/16 at 04:00 Metoclopramide HCl (Reglan) 10 mg Q6H PRN IV NAUSEA AND/OR VOMITING; Start at 04:00 Acetaminophen (Tylenol Supp) 650 mg Q6H PRN [place] PAIN LEVEL 1-3 OR FEVER; Start 10/28/16 at 04:00 Morphine Sulfate (morphine) 2 mg Q4H PRN IV PAIN LEVEL 7-10 Last administered on 10/30/16 12:33; Admin Dose 2 MG; Start 10/28/16 at 04:00 Aspirin (Aspirin) 81 mg DAILY PO Last administered on 10/30/16 09:26; Admin Dose 81 MG; Start 10/28/16 at 09:00 Atorvastatin Calcium (Lipitor) 40 mg HS PO Last administered on 10/30/16 20:50 ; Admin Dose 40 MG; Start 10/28/16 at 21:00 Metoprolol Tartrate (Lopressor) 25 mg BID PO Last administered on 10/30/16 20: 50; Admin Dose 25 MG; Start 10/28/16 at 09:00 Morphine Sulfate (morphine) 2 mg Q2H PRN IV FOR NON CARDIAC PAIN (4-10) Last administered on 10/28/16 15:13; Admin Dose 2 MG; Start 10/28/16 at 14:00 Ondansetron HCl (Zofran Inj) 4 mg Q4H PRN IV NAUSEA AND/OR VOMITING; Start at 14:00 Enoxaparin Sodium (Lovenox) 40 mg DAILY SC Last administered on 10/30/16 09:28 ; Admin Dose 40 MG; Start 10/29/16 at 09:00 Acetaminophen/ Hydrocodone Bitart ([place] (5/325)) 1 tab Q4H PRN PO MODERATE PAIN LEVEL 4-6 Last administered on 10/29/16 00:09; Admin Dose 1 TAB; Start at 00:00 Acetaminophen/ Hydrocodone Bitart ([place] (5/325)) 2 tab Q4H PRN PO SEVERE PAIN LEVEL 7-10; Start 10/29/16 at 00:00 Mupirocin (Bactroban) 1 applic BID TOP Last administered on 10/30/16 20:55; Admin Dose 1 APPLIC; Start 10/29/16 at 14:00; Stop 11/12/16 at 13:59 Pantoprazole (Protonix Iv) 40 mg BID@,18 IV Last administered on 10/30/16 18 :13; Admin Dose 40 MG; Start 10/30/16 at 06:00 Lactobacillus Acidoph/Bulgaricus (Floranex) 1 tab BID PO Last administered on 20:50; Admin Dose 1 TAB; Start 10/30/16 at 13:00 BETO PADILLA MD Oct 30, 2016 22:42
[2016-10-31] VITALS (12 sets, daily range): BP systolic 120–159; BP diastolic 62–83; PULSE 70–80; RESP 18–20
[2016-10-31] MEDS ORDERED: VANCOMYCIN IV PER PHARMACY XX SCH (01:00)
[2016-10-31] MEDS ORDERED: SOD CHLORIDE 0.9% IVPB SCH (02:00)
[2016-10-31] MEDS ORDERED: VANCOMYCIN IVPB SCH (02:00)
--- NOTE | 2016-10-31 04:17 | CONS ---
DATE OF ADMISSION: 10/27/2016 DATE OF CONSULTATION: TYPE OF CONSULTATION: Infectious disease consultation for Dr. Rafa Whiting. REQUESTING PHYSICIAN: Dr. Brittney Copeland. HISTORY OF PRESENT ILLNESS: The patient is a 61-year-old white male that was admitted from [facility] for coronary artery bypass graft surgery. The patient has a seizure disorder and was seen at [facility] prior to admission here after having 4 seizures. He was admitted to [facility] and found to have a non-ST segment myocardial infarction as a result of this. He had an emia and congestive heart failure and had a pleural fluid of 410 mL removed from his left chest. Th e patient also underwent coronary artery angiography which revealed that he had a 3-vessel disease i ncluding very long narrowing of the left anterior descending artery and distally, there was a proxim al narrowing diffusely 70% of the right coronary artery. The circumflex artery had narrowing of 50% to 60% from the post-ostium to the first marginal vessel and a 70 to 80% narrowing to the mid porti on of the artery. The patient also had upper endoscopy and was found to have esophagitis and theref ore having GI bleeding. The patient's echocardiogram revealed him to have an ejection fraction of 5 5% with hypokinesis of the inferior and inferolateral teresa. The patient was stabilized and transfe rred to [facility] for further treatment. The patient had a culture for MRSA from his nares which was positive. Test for C. difficile is negative. The patient had a chest x-ray wh ich does not show any acute pleural effusion and also his CT scan of his chest taken at [place] revealed numerous mediastinal lymph nodes. PAST MEDICAL HISTORY: He has a past medical history of tobacco use, diabetes mellitus, seizure diso rder and history of treated latent tuberculosis treated with INH several years ago. He also had a h istory of recurrent Clostridium difficile and eventually was in the hospital 9 months and was treate d with several combinations including Flagyl, vancomycin and Dificid. It is notable that none of th jes courses of medications of 14 days, which I consider the usual and preferable treatment length. I am currently in the minority about this opinion. ALLERGIES: THE PATIENT HAS NO KNOWN ALLERGIES. MEDICATIONS: Consist of 1. Lamictal, which he is not taking at the present time, 200 mg at bedtime. 2. Pantoprazole 40 mg. 3. Lactobacillus 1 tablet twice a day. 4. Atorvastatin 40 mg daily. 5. Aspirin 81 mg daily. 6. Metoprolol 25 mg b.i.d. and numerous as needed medications. 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 He has a history of episodic alcohol abuse and probably tobacco use, although it stated in one area of the record and denied in other areas of the record. FAMILY HISTORY: There is a family history of diabetes. PHYSICAL EXAMINATION GENERAL: Reveals a well-developed, well-nourished white male who is talkative and lying in bed with the head of his bed elevated 30 degrees. VITAL SIGNS: Blood pressure is 120/60, respirations 20, pulse 78, temperature 97.9, pulse oximetry is 97% on room air. HEENT: The pupils are equal, round, and reactive to light. No scleral icterus. Mouth has moist mu cous membranes. NECK: There is no jugular venous distention. CHEST: Clear to auscultation. HEART: Regular without gallop, murmur or rub. ABDOMEN: Soft. No palpable organs or masses. EXTREMITIES: There is a well-healed right transmetatarsal amputation of the right foot. The left l ower extremity has weak peripheral pulses. INITIAL IMPRESSION: 1. Methicillin-resistant Staphylococcus aureus colonization previously treated for latent tuberculo sis inactive. 2. 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 3. Three-vessel coronary artery disease. 4. Peripheral vascular disease with right transmetatarsal amputation. 5. Seizure disorder. 6. Diabetes mellitus. 7. History of recurrent Clostridium difficile. 8. Esophagitis with gastrointestinal bleeding, anemia is the result of above. 9. Hyperlipidemia. RECOMMENDATIONS: I would treat the patient with vancomycin for 14 days sparing rifampin at this humaira e because of the interaction with anticoagulants and Lamictal, and mupirocin ointment twice a day in the nares for 14 days and 5 days of chlorhexidine total body baths. Also begin his usual dose of L amictal 200 mg at bedtime and obtain cocci serology. Dictated By: Ghada SMITH/JOSELINE Conf#: [id number] DID#: [id number] CC: BRITTNEY COPELAND MD; RAFA WHITNIG MD;*[facility]*
[2016-10-31] MEDS: PANTOPRAZOLE 40 MG INJ IV SCH (06:37)
[2016-10-31 08:05] LABS: ADD SCAN DIFF NO
[2016-10-31 08:08] LABS: BASOPHILS % 0.1 % (0.0-2.0); EOSINOPHILS # 0.3 10^3/ul (0.0-0.5); EOSINOPHILS % 3.7 % (0.0-7.0); HEMATOCRIT 32.5 % (42.0-52.0); HEMOGLOBIN 9.8 g/dl (14.0-18.0); LYMPHOCYTES # 1.1 10^3/ul (0.8-2.9); LYMPHOCYTES % 15.5 % (15.0-51.0); MEAN CORPUSCULAR HGB CONC 30.2 g/dl (32.0-37.0); MEAN CORPUSCULAR VOLUME 79.7 fl (82.0-101.0); MEAN PLATELET VOLUME 9.1 fl (7.4-10.4); MONOCYTE # 0.4 10^3/ul (0.3-0.9); MONOCYTES % 5.5 % (0.0-11.0); NEUTROPHIL # 5.4 10^3/ul (1.6-7.5); NEUTROPHILS % 74.8 % (39.0-77.0); PLATELET COUNT 275 10^3/UL (140-415); RED BLOOD COUNT 4.08 10^6/ul (4.70-6.10); RED CELL DISTRIBUTION WIDTH 14.9 % (11.5-14.5); WHITE BLOOD COUNT 7.2 10^3/ul (4.8-10.8)
[2016-10-31 08:35] LABS: POTASSIUM 4.7 mmol/L (3.5-5.1)
[2016-10-31 08:37] LABS: CREATININE 0.78 mg/dl (0.61-1.24)
[2016-10-31 08:38] LABS: PHOSPHORUS 4.3 mg/dl (2.5-4.9)
[2016-10-31 08:39] LABS: MAGNESIUM 2.1 mg/dl (1.7-2.5)
[2016-10-31] MEDS: ASPIRIN 81 MG TAB PO SCH (08:43)
[2016-10-31] MEDS: LACTOBACILLUS CHEW TAB PO SCH ×2 (08:43→21:48)
[2016-10-31] MEDS: METOPROLOL 25 MG TAB PO SCH ×2 (08:44→21:49)
[2016-10-31] MEDS: MUPIROCIN 2% 15 GM CR TOP SCH ×2 (08:44→21:55)
[2016-10-31] MEDS: ENOXAPARIN 40 MG/0.4 ML SYG SC SCH (08:47)
[2016-10-31] MEDS: MUPIROCIN 2% 22 GM OINT TOP SCH ×2 (08:54→21:55)
--- NOTE | 2016-10-31 10:06 | PN ---
Date/Time of Note Date/Time of Note DATE: 10/31/16 TIME: 10:05 Assessment/Plan VTE Prophylaxis VTE Prophylaxis Intervention: other Lines/Catheters IV C[facility]ter Type [facility]): Urinary Cath still in place: No Assessment/Plan Chief Complaint/Hosp Course MPRESSION: 1. Coronary artery disease. 2. Status post myocardial infarction. 3. Anemia. 4. Gastrointestinal bleeding. 5. Seizure disorder. 6. Peripheral vascular disease status post foot amputation. RECOMMENDATIONS: The patient is a candidate to undergo coronary artery bypass grafting; however, his GI bleeding needs to be fully evaluated because during the course of open heart surgery, he would be given a very large dose of heparin. Plan for after pt is cleared by ID This was discussed with the patient. Will discuss with the referring physicians. Problems: Subjective 24 Hr Interval Summary Gastrointestinal: no complaints Genitourinary: no complaints Musculoskeletal: no complaints Skin: no complaints Neurologic: no complaints Exam/Review of Systems Vital Signs Vitals Vital Signs Date Time Temp Pulse Resp B/P Pulse Ox O2 Delivery O2 Flow Rate FiO2 10/31/16 08:12 72 10/31/16 07:55 98.7 18 159/83 97 10/28/16 15:49 Room Air Intake and Output 10/30/16 10/30/16 10/31/16 15:00 23:00 07:00 Intake Total 870 ml 60 ml Output Total 600 ml 1200 ml Balance 270 ml -1140 ml Exam ENMT: nl external ears & nose, nl lips & teeth, nl nasal mucosa & septum Neck: non-tender, supple Respiratory: clear to auscultation, normal air movement Cardiovascular: nl pulses, regular rate and rhythm Results Result Diagram: 10/31/16 0710/31/1623 Results 24 hrs Laboratory Tests Test 10/31/16 07:23 10/31/16 08:43 White Blood Count 7.2 # Red Blood Count 4.08 L Hemoglobin 9.8 L Hematocrit 32.5 L Mean Corpuscular Volume 79.7 L Mean Corpuscular Hemoglobin 24.0 L Mean Corpuscular Hemoglobin Concent 30.2 L Red Cell Distribution Width 14.9 H Platelet Count 275 Mean Platelet Volume 9.1 Neutrophils % 74.8 Lymphocytes % 15.5 Monocytes % 5.5 Eosinophils % 3.7 Basophils % 0.1 Nucleated Red Blood Cells % 0.0 Neutrophils # 5.4 Lymphocytes # 1.1 Monocytes # 0.4 Eosinophils # 0.3 Basophils # 0.0 Nucleated Red Blood Cells # 0.0 Sodium Level 139 Potassium Level 4.7 Chloride Level 100 Carbon Dioxide Level 30 Anion Gap 14 Blood Urea Nitrogen 20 Creatinine 0.78 Glucose Level 198 Calcium Level 9.0 Phosphorus Level 4.3 Magnesium Level 2.1 Bedside Glucose 193 Medications Medications Current Medications Lorazepam (Ativan) 0.5 mg Q6H PRN IV ANXIETY; Start 10/28/16 at 04:00 Metoclopramide HCl (Reglan) 10 mg Q6H PRN IV NAUSEA AND/OR VOMITING; Start at 04:00 Acetaminophen (Tylenol Supp) 650 mg Q6H PRN [place] PAIN LEVEL 1-3 OR FEVER; Start 10/28/16 at 04:00 Morphine Sulfate (morphine) 2 mg Q4H PRN IV PAIN LEVEL 7-10 Last administered on 10/30/16 12:33; Admin Dose 2 MG; Start 10/28/16 at 04:00 Aspirin (Aspirin) 81 mg DAILY PO Last administered on 10/31/16 08:43; Admin Dose 81 MG; Start 10/28/16 at 09:00 Atorvastatin Calcium (Lipitor) 40 mg HS PO Last administered on 10/30/16 20:50 ; Admin Dose 40 MG; Start 10/28/16 at 21:00 Metoprolol Tartrate (Lopressor) 25 mg BID PO Last administered on 10/31/16 08: 44; Admin Dose 25 MG; Start 10/28/16 at 09:00 Morphine Sulfate (morphine) 2 mg Q2H PRN IV FOR NON CARDIAC PAIN (4-10) Last administered on 10/28/16 15:13; Admin Dose 2 MG; Start 10/28/16 at 14:00 Ondansetron HCl (Zofran Inj) 4 mg Q4H PRN IV NAUSEA AND/OR VOMITING; Start at 14:00 Enoxaparin Sodium (Lovenox) 40 mg DAILY SC Last administered on 10/31/16 08:47 ; Admin Dose 40 MG; Start 10/29/16 at 09:00 Acetaminophen/ Hydrocodone Bitart ([place] (5/325)) 1 tab Q4H PRN PO MODERATE PAIN LEVEL 4-6 Last administered on 3/24/17at 00:09; Admin Dose 1 TAB; Start at 00:00 Acetaminophen/ Hydrocodone Bitart ([place] (5/325)) 2 tab Q4H PRN PO SEVERE PAIN LEVEL 7-10; Start 10/29/16 at 00:00 Mupirocin (Bactroban) 1 applic BID TOP Last administered on 10/31/16 08:44; Admin Dose 1 APPLIC; Start 10/29/16 at 14:00; Stop 11/12/16 at 13:59 Pantoprazole (Protonix Iv) 40 mg BID@06,18 IV Last administered on 10/31/16 06 :37; Admin Dose 40 MG; Start 10/30/16 at 06:00 Lactobacillus Acidoph/Bulgaricus (Floranex) 1 tab BID PO Last administered on 08:43; Admin Dose 1 TAB; Start 10/30/16 at 13:00 Lamotrigine (Lamictal) 200 mg HS PO ; Start 10/31/16 at 21:00; Stop 12/05/16 at 23:00 Mupirocin (Bactroban) 1 applic BID TOP Last administered on 10/31/16 08:54; Admin Dose 1 APPLIC; Start 10/31/16 at 09:00; Stop 11/15/16 at 23:00 Vancomycin HCl PER PHARMACY DOSING NOTE XX ; Start 10/31/16 at 01:00 Vancomycin HCl/ Sodium Chloride (Vancocin/NS) 250 ml @ 83.333 mls/ hr Q12H IVPB ; Start 10/31/16 at 14:00 Miscellaneous Information (*Rx Drug Level Order Reminder*) VANCOMYCIN TROUGH AT 1300 ONCE ONCE XX ; Start 11/01/16 at 13:00; Stop 11/01/16 at 13:01 JOAN WATTS MD Oct 31, 2016 10:06
--- NOTE | 2016-10-31 10:30 | CONS ---
Date/Time of Note Date/Time of Note DATE: 10/31/16 TIME: 10:29 Assessment/Plan Assessment/Plan Chief Complaint/Hosp Course NSTEMI: s/p cath with severe CAD CAD: diffuse LAD disease, Cx/OM disease, non-dominant RCA. Will need CABG. Mitral regurgitation: moderate by echo at [place] but pt had decompensated heart failure. By cath only 1+ and by repeat echo only mild. Acute on chronic diastolic heart failure: diuresed and had thoracentesis at [facility]. Now euvolemic by exam. Seizure disorder: initial presentation was seizure ?Hematemesis: pt denies but had an EGD which showed Barretts esophagitis but otherwise no bleeding Bone marrow biopsy: results pending DM Right transmetatarsal amputation -ASA, lipitor -metoprolol 25mg BID -spot dose lasix PRN -awaiting surgery Problems: Consultation Date/Type/Reason Admit Date/Time Oct 27, 2016 at 22:32 Type of Consultation: Cardiology 24 HR Interval Summary Free Text/Dictation No o/n events. No complaints. Exam/Review of Systems Vital Signs Vitals Vital Signs Date Time Temp Pulse Resp B/P Pulse Ox O2 Delivery O2 Flow Rate FiO2 10/31/16 08:12 72 10/31/16 07:55 98.7 18 159/83 97 10/28/16 15:49 Room Air Intake and Output 10/30/16 10/30/16 10/31/16 15:00 23:00 07:00 Intake Total 870 ml 60 ml Output Total 600 ml 1200 ml Balance 270 ml -1140 ml Exam Constitutional: alert, oriented Neck: No jvd Respiratory: clear to auscultation, No crackles/rales Cardiovascular: regular rate and rhythm, No edema, No systolic murmur Gastrointestinal: non-tender, soft Neurological: nl mental status, nl speech Results Result Diagram: 10/31/16 0723 10/31/16 0723 Results 24 hrs Laboratory Tests Test 10/31/16 07:23 10/31/16 08:43 White Blood Count 7.2 # Red Blood Count 4.08 L Hemoglobin 9.8 L Hematocrit 32.5 L Mean Corpuscular Volume 79.7 L Mean Corpuscular Hemoglobin 24.0 L Mean Corpuscular Hemoglobin Concent 30.2 L Red Cell Distribution Width 14.9 H Platelet Count 275 Mean Platelet Volume 9.1 Neutrophils % 74.8 Lymphocytes % 15.5 Monocytes % 5.5 Eosinophils % 3.7 Basophils % 0.1 Nucleated Red Blood Cells % 0.0 Neutrophils # 5.4 Lymphocytes # 1.1 Monocytes # 0.4 Eosinophils # 0.3 Basophils # 0.0 Nucleated Red Blood Cells # 0.0 Sodium Level 139 Potassium Level 4.7 Chloride Level 100 Carbon Dioxide Level 30 Anion Gap 14 Blood Urea Nitrogen 20 Creatinine 0.78 Glucose Level 198 Calcium Level 9.0 Phosphorus Level 4.3 Magnesium Level 2.1 Bedside Glucose 193 Medications Medications Current Medications Lorazepam (Ativan) 0.5 mg Q6H PRN IV ANXIETY; Start 10/28/16 at 04:00 Metoclopramide HCl (Reglan) 10 mg Q6H PRN IV NAUSEA AND/OR VOMITING; Start at 04:00 Acetaminophen (Tylenol Supp) 650 mg Q6H PRN [place] PAIN LEVEL 1-3 OR FEVER; Start 10/28/16 at 04:00 Morphine Sulfate (morphine) 2 mg Q4H PRN IV PAIN LEVEL 7-10 Last administered on 10/30/16 12:33; Admin Dose 2 MG; Start 10/28/16 at 04:00 Aspirin (Aspirin) 81 mg DAILY PO Last administered on 10/31/16 08:43; Admin Dose 81 MG; Start 10/28/16 at 09:00 Atorvastatin Calcium (Lipitor) 40 mg HS PO Last administered on 10/30/16 20:50 ; Admin Dose 40 MG; Start 10/28/16 at 21:00 Metoprolol Tartrate (Lopressor) 25 mg BID PO Last administered on 10/31/16 08: 44; Admin Dose 25 MG; Start 10/28/16 at 09:00 Morphine Sulfate (morphine) 2 mg Q2H PRN IV FOR NON CARDIAC PAIN (4-10) Last administered on 10/28/16 15:13; Admin Dose 2 MG; Start 10/28/16 at 14:00 Ondansetron HCl (Zofran Inj) 4 mg Q4H PRN IV NAUSEA AND/OR VOMITING; Start at 14:00 Enoxaparin Sodium (Lovenox) 40 mg DAILY SC Last administered on 10/31/16 08:47 ; Admin Dose 40 MG; Start 10/29/16 at 09:00 Acetaminophen/ Hydrocodone Bitart ([place] (5/325)) 1 tab Q4H PRN PO MODERATE PAIN LEVEL 4-6 Last administered on 10/29/16 00:09; Admin Dose 1 TAB; Start at 00:00 Acetaminophen/ Hydrocodone Bitart ([place] (5/325)) 2 tab Q4H PRN PO SEVERE PAIN LEVEL 7-10; Start 10/29/16 at 00:00 Mupirocin (Bactroban) 1 applic BID TOP Last administered on 10/31/16 08:44; Admin Dose 1 APPLIC; Start 10/29/16 at 14:00; Stop 11/12/16 at 13:59 Pantoprazole (Protonix Iv) 40 mg BID@06,18 IV Last administered on 10/31/16 06 :37; Admin Dose 40 MG; Start 10/30/16 at 06:00 Lactobacillus Acidoph/Bulgaricus (Floranex) 1 tab BID PO Last administered on 08:43; Admin Dose 1 TAB; Start 10/30/16 at 13:00 Lamotrigine (Lamictal) 200 mg HS PO ; Start 10/31/16 at 21:00; Stop 12/05/16 at 23:00 Mupirocin (Bactroban) 1 applic BID TOP Last administered on 10/31/16 08:54; Admin Dose 1 APPLIC; Start 10/31/16 at 09:00; Stop 11/15/16 at 23:00 Vancomycin HCl PER PHARMACY DOSING NOTE XX ; Start 10/31/16 at 01:00 Vancomycin HCl/ Sodium Chloride (Vancocin/NS) 250 ml @ 83.333 mls/ hr Q12H IVPB ; Start 10/31/16 at 14:00 Miscellaneous Information (*Rx Drug Level Order Reminder*) VANCOMYCIN TROUGH AT 1300 ONCE ONCE XX ; Start 11/01/16 at 13:00; Stop 11/01/16 at 13:01 TOMMEI PERALTA Oct 31, 2016 10:30
--- NOTE | 2016-10-31 13:09 | PN ---
Date/Time of Note Date/Time of Note DATE: 10/31/16 TIME: 13:02 Assessment/Plan VTE Prophylaxis VTE Prophylaxis Intervention: LMWH Lines/Catheters IV Catheter Type (from [facility]): Urinary Cath still in place: No Assessment/Plan Chief Complaint/Hosp Course S-61-yr-M admitted to [facility] w I believe with seizure. Further eval, noted abn trop. Additional concern for GIb. -EGD:Adair's?. Transferred here for abn trop. -sp cath w multivessel dz. 10/29-no active cp, dyspnea, edema. No fever. Denies alcohol use or active bleeding. No recent tongue bite or repeat seizure. 10/30-cough with no dyspnea. No hemoptysis, fever, or cp. Today has diarrhea and abd pain, possibly colicky. Pepcid changed to PPI. No active bleed. 10/31-no distress. No further diarrhea. Started MRSA irradication w IV vanc/h baths. Needs 5 days of therapy. Bone marrow biopsy will be reevaluated tomorrow. Feeling is that it might take 5 days at the minimum before he is a candidate for CABG. He needs to go to snf in the interim. O-vss PE No pallor/JVD Reg no m/r/g CTAB Bs + nt nd; no R/R/G No edema. +TMA status A/P 1. NSTMI; stable cont medical mngmnt 2. Multivessel CAD. CABG eval. Carotids ordered. will need GI, ID, & Onc ' clearance 1st'. -Needs 5 days of MRSA eradication therapy. BmBx results probably tomorrow. No active bleeding. I feel that he can be discharged tomorrow evening for follow- up and scheduling for bypass surgery after about 5 days. 3. Breakthrough seizure on ch seizure dz. Stable cont therapy. 4. Past alcoholism 5. Remote tobacco exposure/marijuana. 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 6. 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 Treated for maybe a year. No recent hemoptysis wt loss. 7. Ho C diff colitis; presently with recurrent diarrhea. C diff testing negative. 8. TMA status 9. Ftt. Placement needed on dc 10. Chr Dm/metabolic syndrome 11. Htn 12. Probable PAD 13. Recent decompensated CHF. EF 55% 14. Pl effusion. Probable exudative, but CHF related. 15. Valvular heart disease; mild MR 16. Lymphadenopathy. BMBx pending. No ho recent wt loss. Retired from the [employer]. Remote colonoscopy negative. Again probable ho TB 17. MRSA nares colonized; being eradicated. 18. Diarrhea, no present C diff. benign/med's induced. 19. Recent GIb/esophagitis/Adair's. DC PPI (c diff risk) if ok w GI. Problems: Exam/Review of Systems Vital Signs Vitals Vital Signs Date Time Temp Pulse Resp B/P Pulse Ox O2 Delivery O2 Flow Rate FiO2 10/31/16 12:17 70 10/31/16 12:06 97.6 18 132/72 97 10/28/16 15:49 Room Air Intake and Output 10/30/16 10/30/16 10/31/16 15:00 23:00 07:00 Intake Total 870 ml 60 ml Output Total 600 ml 1200 ml Balance 270 ml -1140 ml Results Result Diagram: 10/31/1623 10/31/16 0723 Results 24 hrs Laboratory Tests Test 10/31/16 07:23 10/31/16 08:43 10/31/16 11:26 White Blood Count 7.2 # Red Blood Count 4.08 L Hemoglobin 9.8 L Hematocrit 32.5 L Mean Corpuscular Volume 79.7 L Mean Corpuscular Hemoglobin 24.0 L Mean Corpuscular Hemoglobin Concent 30.2 L Red Cell Distribution Width 14.9 H Platelet Count 275 Mean Platelet Volume 9.1 Neutrophils % 74.8 Lymphocytes % 15.5 Monocytes % 5.5 Eosinophils % 3.7 Basophils % 0.1 Nucleated Red Blood Cells % 0.0 Neutrophils # 5.4 Lymphocytes # 1.1 Monocytes # 0.4 Eosinophils # 0.3 Basophils # 0.0 Nucleated Red Blood Cells # 0.0 Sodium Level 139 Potassium Level 4.7 Chloride Level 100 Carbon Dioxide Level 30 Anion Gap 14 Blood Urea Nitrogen 20 Creatinine 0.78 Glucose Level 198 Calcium Level 9.0 Phosphorus Level 4.3 Magnesium Level 2.1 Bedside Glucose 193 197 Medications Medications Current Medications Lorazepam (Ativan) 0.5 mg Q6H PRN IV ANXIETY; Start 10/28/16 at 04:00 Metoclopramide HCl (Reglan) 10 mg Q6H PRN IV NAUSEA AND/OR VOMITING; Start at 04:00 Acetaminophen (Tylenol Supp) 650 mg Q6H PRN [place] PAIN LEVEL 1-3 OR FEVER; Start 10/28/16 at 04:00 Morphine Sulfate (morphine) 2 mg Q4H PRN IV PAIN LEVEL 7-10 Last administered on 10/30/16 12:33; Admin Dose 2 MG; Start 10/28/16 at 04:00 Aspirin (Aspirin) 81 mg DAILY PO Last administered on 10/31/16 08:43; Admin Dose 81 MG; Start 10/28/16 at 09:00 Atorvastatin Calcium (Lipitor) 40 mg HS PO Last administered on 10/30/16 20:50 ; Admin Dose 40 MG; Start 10/28/16 at 21:00 Metoprolol Tartrate (Lopressor) 25 mg BID PO Last administered on 10/31/16 08: 44; Admin Dose 25 MG; Start 10/28/16 at 09:00 Morphine Sulfate (morphine) 2 mg Q2H PRN IV FOR NON CARDIAC PAIN (4-10) Last administered on 10/28/16 15:13; Admin Dose 2 MG; Start 10/28/16 at 14:00 Ondansetron HCl (Zofran Inj) 4 mg Q4H PRN IV NAUSEA AND/OR VOMITING; Start at 14:00 Enoxaparin Sodium (Lovenox) 40 mg DAILY SC Last administered on 10/31/16 08:47 ; Admin Dose 40 MG; Start 10/29/16 at 09:00 Acetaminophen/ Hydrocodone Bitart ([place] (5/325)) 1 tab Q4H PRN PO MODERATE PAIN LEVEL 4-6 Last administered on 10/29/16 00:09; Admin Dose 1 TAB; Start at 00:00 Acetaminophen/ Hydrocodone Bitart ([place] (5/325)) 2 tab Q4H PRN PO SEVERE PAIN LEVEL 7-10; Start 10/29/16 at 00:00 Mupirocin (Bactroban) 1 applic BID TOP Last administered on 10/31/16 08:44; Admin Dose 1 APPLIC; Start 10/29/16 at 14:00; Stop 11/12/16 at 13:59 Pantoprazole (Protonix Iv) 40 mg BID@,18 IV Last administered on 3/26/17at 06 :37; Admin Dose 40 MG; Start 10/30/16 at 06:00 Lactobacillus Acidoph/Bulgaricus (Floranex) 1 tab BID PO Last administered on 08:43; Admin Dose 1 TAB; Start 10/30/16 at 13:00 Lamotrigine (Lamictal) 200 mg HS PO ; Start 10/31/16 at 21:00; Stop 12/05/16 at 23:00 Mupirocin (Bactroban) 1 applic BID TOP Last administered on 10/31/16 08:54; Admin Dose 1 APPLIC; Start 10/31/16 at 09:00; Stop 11/15/16 at 23:00 Vancomycin HCl PER PHARMACY DOSING NOTE XX ; Start 10/31/16 at 01:00 Vancomycin HCl/ Sodium Chloride (Vancocin/NS) 250 ml @ 83.333 mls/ hr Q12H IVPB ; Start 10/31/16 at 14:00 Miscellaneous Information (*Rx Drug Level Order Reminder*) VANCOMYCIN TROUGH AT 1300 ONCE ONCE XX ; Start 11/01/16 at 13:00; Stop 11/01/16 at 13:01 MARIANELA RODRÍGUEZ MD Oct 31, 2016 13:09
[2016-10-31] MEDS ORDERED: GLUCAGON 1 MG INJ IM PRN (13:30)
[2016-10-31] MEDS ORDERED: GLUCOSE GEL 15 GRAM TUBE PO PRN ×2 (13:30)
[2016-10-31] MEDS ORDERED: DEXTROSE 50% 50 ML SYRINGE IV PRN ×2 (13:30)
[2016-10-31] MEDS ORDERED: GLUCOSE GEL 15 GRAM TUBE BUCCAL PRN (13:30)
[2016-10-31] MEDS: VANCOMYCIN 1.25 GM in SOD CHLORIDE 0.9% 250 ML IVPB SCH (14:22)
--- NOTE | 2016-10-31 14:28 | CONS ---
Date/Time of Note Date/Time of Note DATE: 10/31/16 TIME: 14:27 Assessment/Plan Assessment/Plan Additional Assessment/Plan Assessment -Anemia (Stable hgb 8.8 S/P EGD ([facility]) Esophagitis NSTEMI Multivessel CAD History of seizure History of alcoholism History of C difficile colitis Diabetes mellitus Plan - stool for occult blood - proton pump inhibitor - Further recommendations depend on clinical course - Patient seen in collaboration with Dr. Bradshaw Consultation Date/Type/Reason Admit Date/Time Oct 27, 2016 at 22:32 Initial Consult Date 10/28/16 Type of Consultation: GI 24 HR Interval Summary Free Text/Dictation Hemoglobin stable Tolerating diet At bedside reports no diarrhea Exam/Review of Systems Vital Signs Vitals Vital Signs Date Time Temp Pulse Resp B/P Pulse Ox O2 Delivery O2 Flow Rate FiO2 10/31/16 12:17 70 10/31/16 12:06 97.6 18 132/72 97 10/28/16 15:49 Room Air Intake and Output 10/30/16 10/30/16 10/31/16 14:59 22:59 06:59 Intake Total 870 ml 60 ml Output Total 600 ml 1200 ml Balance 270 ml -1140 ml Exam Constitutional: alert, oriented, well developed Psych: nl mood/affect Head: normocephalic Eyes: EOMI, nl conjunctiva, nl lids ENMT: nl external ears & nose, nl lips & teeth, nl nasal mucosa & septum Respiratory: clear to auscultation, normal air movement Cardiovascular: regular rate and rhythm Gastrointestinal: soft, diffuse tenderness Musculoskeletal: nl extremities to inspection Neurological: HYPO DIPPER II-XII intact Results Result Diagram: 10/31/16 0723 10/31/16 0723 Results 24 hrs Laboratory Tests Test 10/31/16 07:23 10/31/16 08:43 10/31/16 11:26 White Blood Count 7.2 # Red Blood Count 4.08 L Hemoglobin 9.8 L Hematocrit 32.5 L Mean Corpuscular Volume 79.7 L Mean Corpuscular Hemoglobin 24.0 L Mean Corpuscular Hemoglobin Concent 30.2 L Red Cell Distribution Width 14.9 H Platelet Count 275 Mean Platelet Volume 9.1 Neutrophils % 74.8 Lymphocytes % 15.5 Monocytes % 5.5 Eosinophils % 3.7 Basophils % 0.1 Nucleated Red Blood Cells % 0.0 Neutrophils # 5.4 Lymphocytes # 1.1 Monocytes # 0.4 Eosinophils # 0.3 Basophils # 0.0 Nucleated Red Blood Cells # 0.0 Sodium Level 139 Potassium Level 4.7 Chloride Level 100 Carbon Dioxide Level 30 Anion Gap 14 Blood Urea Nitrogen 20 Creatinine 0.78 Glucose Level 198 Calcium Level 9.0 Phosphorus Level 4.3 Magnesium Level 2.1 Bedside Glucose 193 197 Medications Medications Current Medications Lorazepam (Ativan) 0.5 mg Q6H PRN IV ANXIETY; Start 10/28/16 at 04:00 Acetaminophen (Tylenol Supp) 650 mg Q6H PRN [place] PAIN LEVEL 1-3 OR FEVER; Start 10/28/16 at 04:00 Morphine Sulfate (morphine) 2 mg Q4H PRN IV PAIN LEVEL 7-10 Last administered on 10/30/16 12:33; Admin Dose 2 MG; Start 10/28/16 at 04:00 Aspirin (Aspirin) 81 mg DAILY PO Last administered on 10/31/16 08:43; Admin Dose 81 MG; Start 10/28/16 at 09:00 Atorvastatin Calcium (Lipitor) 40 mg HS PO Last administered on 10/30/16 20:50 ; Admin Dose 40 MG; Start 10/28/16 at 21:00 Metoprolol Tartrate (Lopressor) 25 mg BID PO Last administered on 10/31/16 08: 44; Admin Dose 25 MG; Start 10/28/16 at 09:00 Morphine Sulfate (morphine) 2 mg Q2H PRN IV FOR NON CARDIAC PAIN (4-10) Last administered on 10/28/16 15:13; Admin Dose 2 MG; Start 10/28/16 at 14:00 Ondansetron HCl (Zofran Inj) 4 mg Q4H PRN IV NAUSEA AND/OR VOMITING; Start at 14:00 Enoxaparin Sodium (Lovenox) 40 mg DAILY SC Last administered on 10/31/16 08:47 ; Admin Dose 40 MG; Start 10/29/16 at 09:00 Acetaminophen/ Hydrocodone Bitart ([place] (5/325)) 1 tab Q4H PRN PO MODERATE PAIN LEVEL 4-6 Last administered on 10/29/16 00:09; Admin Dose 1 TAB; Start at 00:00 Acetaminophen/ Hydrocodone Bitart ([place] (5/325)) 2 tab Q4H PRN PO SEVERE PAIN LEVEL 7-10; Start 10/29/16 at 00:00 Mupirocin (Bactroban) 1 applic BID TOP Last administered on 10/31/16 08:44; Admin Dose 1 APPLIC; Start 10/29/16 at 14:00; Stop 11/12/16 at 13:59 Lactobacillus Acidoph/Bulgaricus (Floranex) 1 tab BID PO Last administered on 08:43; Admin Dose 1 TAB; Start 10/30/16 at 13:00 Mupirocin (Bactroban) 1 applic BID TOP Last administered on 10/31/16 08:54; Admin Dose 1 APPLIC; Start 10/31/16 at 09:00; Stop 11/15/16 at 23:00 Vancomycin HCl PER PHARMACY DOSING NOTE XX ; Start 10/31/16 at 01:00 Vancomycin HCl/ Sodium Chloride (Vancocin/NS) 250 ml @ 83.333 mls/ hr Q12H IVPB Last administered on 10/31/16 14:22; Admin Dose 83.333 MLS/HR; Start at 14:00 Miscellaneous Information (*Rx Drug Level Order Reminder*) VANCOMYCIN TROUGH AT 1300 ONCE ONCE XX ; Start 11/01/16 at 13:00; Stop 11/01/16 at 13:01 Diagnostic Test (Pha) (Accu-Chek) 1 ea 02 XX ; Start 11/01/16 at 02:00 Lamotrigine (Lamictal) 200 mg BID PO ; Start 10/31/16 at 14:30 Miscellaneous Information 1 ea NOTE XX ; Start 10/31/16 at 13:30 Glucose (Glutose) 15 gm Q15M PRN PO DECREASED GLUCOSE; Start 10/31/16 at 13:30 Glucose (Glutose) 22.5 gm Q15M PRN PO DECREASED GLUCOSE; Start 10/31/16 at 13: 30 Dextrose (D50w Syringe) 25 ml Q15M PRN IV DECREASED GLUCOSE; Start 10/31/16 at 13:30 Dextrose (D50w Syringe) 50 ml Q15M PRN IV DECREASED GLUCOSE; Start 10/31/16 at 13:30 Glucagon (Glucagen) 1 mg Q15M PRN IM DECREASED GLUCOSE; Start 10/31/16 at 13:30 Glucose (Glutose) 15 gm Q15M PRN BUCCAL DECREASED GLUCOSE; Start 10/31/16 at 13 :30 YULIA MCNEAL Oct 31, 2016 14:28
--- NOTE | 2016-10-31 14:42 | CONS ---
Date/Time of Note Date/Time of Note DATE: 10/31/16 TIME: 14:35 Assessment/Plan Assessment/Plan Chief Complaint/Hosp Course TOTAL ABX DAY #1 => Vanco IV + Bactroban ID PROGRESS NOTE * A/A/O -> Feels well, very happy to have met Dr. Odom last night reports they talked for 2hours ! * Pending CABG - Started on MRSA decolonization w/Vanco IV + Bactroban + Hibiclens bath ID Assessment/Plan ID Assessment/Plan ID Additional Assessment/Plan 61 yo M retired from the [employer] w/PMHx ETOH abuse, former tobaccoism admit [facility] with: 1. NSTEMI 2. Multivessel CAD-> Per notes plan for CABG 3. s/p Recent decompensated CHF. EF 55% 4. Pl effusion. Probable exudative, but CHF related. 5. Seizure Disorder w/breakthrough SZs => Lamictal onboard 6. Diabetes mellitus 7. Anemia (Stable hgb 8.8 S/P EGD ([facility]) Esophagitis Hx of remote Colonscopy (-) 8. Current diarrhea w/hx of C difficile colitis-> (-)C.Diff toxin 10/30/16 * NOTED: Patient on REGLAN 9. TMA status -> Probable PAD 10. HTN 11. 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 Treated for maybe a year. No recent hemoptysis wt loss. 12. Lymphadenopathy. BMBx pending. 13. 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 (+)MRSA Nares Colonization CURRENT ABX: TOTAL ABX DAY #1 => Vanco IV + Bactroban INITIAL ID RECOMMENDATIONS QUOTING DR. ODOM, ID ATTENDING RECS FROM 10/30/16 note: "RECOMMENDATIONS: I would treat the patient with vancomycin for 14 days sparing rifampin at this time because of the interaction with anticoagulants and Lamictal, and mupirocin ointment twice a day in the nares for 14 days and 5 days of chlorhexidine total body baths. Also begin his usual dose of Lamictal 200 mg at bedtime and obtain cocci serology." . Problems: Consultation Date/Type/Reason Admit Date/Time Oct 27, 2016 at 22:32 Initial Consult Date 10/28/16 Type of Consultation: ID Exam/Review of Systems Vital Signs Vitals Vital Signs Date Time Temp Pulse Resp B/P Pulse Ox O2 Delivery O2 Flow Rate FiO2 10/31/16 12:17 70 10/31/16 12:06 97.6 18 132/72 97 10/28/16 15:49 Room Air Intake and Output 10/30/16 10/30/16 10/31/16 15:00 23:00 07:00 Intake Total 870 ml 60 ml Output Total 600 ml 1200 ml Balance 270 ml -1140 ml Exam Constitutional: alert, oriented, well developed Psych: nl mood/affect, no complaints Head: atraumatic, normocephalic Eyes: EOMI, nl conjunctiva, nl lids, nl sclera ENMT: mucosa pink and moist, nl external ears & nose, nl lips & teeth, nl nasal mucosa & septum Neck: non-tender, supple Respiratory: clear to auscultation, normal air movement Cardiovascular: nl pulses, regular rate and rhythm Gastrointestinal: non-tender, soft Genitourinary - Male: other (deferred) Musculoskeletal: muscle tone, range of motion, No muscle weakness, No nl extremities to inspection, No other, No spine non- tender, No swelling Extremities: other (s/p Right TMA w/DSG C/D/I) Neurological: WELL SERVICES OPERATOR II-XII intact, nl mental status, nl speech, nl strength Skin: nl turgor, No diaphoresis, No ecchymosis, No rash or lesions Lymph: nl lymph nodes Results Result Diagram: 10/31/16 0723 10/31/16 0723 Results 24 hrs Laboratory Tests Test 10/31/16 07:23 10/31/16 08:43 10/31/16 11:26 White Blood Count 7.2 # Red Blood Count 4.08 L Hemoglobin 9.8 L Hematocrit 32.5 L Mean Corpuscular Volume 79.7 L Mean Corpuscular Hemoglobin 24.0 L Mean Corpuscular Hemoglobin Concent 30.2 L Red Cell Distribution Width 14.9 H Platelet Count 275 Mean Platelet Volume 9.1 Neutrophils % 74.8 Lymphocytes % 15.5 Monocytes % 5.5 Eosinophils % 3.7 Basophils % 0.1 Nucleated Red Blood Cells % 0.0 Neutrophils # 5.4 Lymphocytes # 1.1 Monocytes # 0.4 Eosinophils # 0.3 Basophils # 0.0 Nucleated Red Blood Cells # 0.0 Sodium Level 139 Potassium Level 4.7 Chloride Level 100 Carbon Dioxide Level 30 Anion Gap 14 Blood Urea Nitrogen 20 Creatinine 0.78 Glucose Level 198 Calcium Level 9.0 Phosphorus Level 4.3 Magnesium Level 2.1 Bedside Glucose 193 197 Medications Medications Current Medications Lorazepam (Ativan) 0.5 mg Q6H PRN IV ANXIETY; Start 10/28/16 at 04:00 Acetaminophen (Tylenol Supp) 650 mg Q6H PRN [place] PAIN LEVEL 1-3 OR FEVER; Start 10/28/16 at 04:00 Morphine Sulfate (morphine) 2 mg Q4H PRN IV PAIN LEVEL 7-10 Last administered on 10/30/16 12:33; Admin Dose 2 MG; Start 10/28/16 at 04:00 Aspirin (Aspirin) 81 mg DAILY PO Last administered on 10/31/16 08:43; Admin Dose 81 MG; Start 10/28/16 at 09:00 Atorvastatin Calcium (Lipitor) 40 mg HS PO Last administered on 10/30/16 20:50 ; Admin Dose 40 MG; Start 10/28/16 at 21:00 Metoprolol Tartrate (Lopressor) 25 mg BID PO Last administered on 10/31/16 08: 44; Admin Dose 25 MG; Start 10/28/16 at 09:00 Morphine Sulfate (morphine) 2 mg Q2H PRN IV FOR NON CARDIAC PAIN (4-10) Last administered on 10/28/16 15:13; Admin Dose 2 MG; Start 10/28/16 at 14:00 Ondansetron HCl (Zofran Inj) 4 mg Q4H PRN IV NAUSEA AND/OR VOMITING; Start at 14:00 Enoxaparin Sodium (Lovenox) 40 mg DAILY SC Last administered on 10/31/16 08:47 ; Admin Dose 40 MG; Start 10/29/16 at 09:00 Acetaminophen/ Hydrocodone Bitart ([place] (5/325)) 1 tab Q4H PRN PO MODERATE PAIN LEVEL 4-6 Last administered on 10/29/16 00:09; Admin Dose 1 TAB; Start at 00:00 Acetaminophen/ Hydrocodone Bitart ([place] (5/325)) 2 tab Q4H PRN PO SEVERE PAIN LEVEL 7-10; Start 10/29/16 at 00:00 Mupirocin (Bactroban) 1 applic BID TOP Last administered on 10/31/16 08:44; Admin Dose 1 APPLIC; Start 10/29/16 at 14:00; Stop 11/12/16 at 13:59 Lactobacillus Acidoph/Bulgaricus (Floranex) 1 tab BID PO Last administered on 08:43; Admin Dose 1 TAB; Start 10/30/16 at 13:00 Mupirocin (Bactroban) 1 applic BID TOP Last administered on 10/31/16 08:54; Admin Dose 1 APPLIC; Start 10/31/16 at 09:00; Stop 11/15/16 at 23:00 Vancomycin HCl PER PHARMACY DOSING NOTE XX ; Start 10/31/16 at 01:00 Vancomycin HCl/ Sodium Chloride (Vancocin/NS) 250 ml @ 83.333 mls/ hr Q12H IVPB Last administered on 10/31/16 14:22; Admin Dose 83.333 MLS/HR; Start at 14:00 Miscellaneous Information (*Rx Drug Level Order Reminder*) VANCOMYCIN TROUGH AT 1300 ONCE ONCE XX ; Start 11/01/16 at 13:00; Stop 11/01/16 at 13:01 Diagnostic Test (Pha) (Accu-Chek) 1 ea 02 XX ; Start 11/01/16 at 02:00 Lamotrigine (Lamictal) 200 mg BID PO ; Start 10/31/16 at 14:30 Miscellaneous Information 1 ea NOTE XX ; Start 10/31/16 at 13:30 Glucose (Glutose) 15 gm Q15M PRN PO DECREASED GLUCOSE; Start 10/31/16 at 13:30 Glucose (Glutose) 22.5 gm Q15M PRN PO DECREASED GLUCOSE; Start 10/31/16 at 13: 30 Dextrose (D50w Syringe) 25 ml Q15M PRN IV DECREASED GLUCOSE; Start 10/31/16 at 13:30 Dextrose (D50w Syringe) 50 ml Q15M PRN IV DECREASED GLUCOSE; Start 10/31/16 at 13:30 Glucagon (Glucagen) 1 mg Q15M PRN IM DECREASED GLUCOSE; Start 10/31/16 at 13:30 Glucose (Glutose) 15 gm Q15M PRN BUCCAL DECREASED GLUCOSE; Start 10/31/16 at 13 :30 MIKE STEINBERG NP 26, 2017 14:42
[2016-10-31] MEDS: LAMOTRIGINE 100 MG TAB PO SCH ×2 (14:56→23:27)
[2016-10-31] MEDS: INSULIN ASPART [NOVOLOG] 3 ML PEN SC SCH ×2 (16:54→21:57)
[2016-10-31] MEDS ORDERED: LAMOTRIGINE 100 MG TAB PO SCH (21:00)
[2016-10-31] MEDS: morphine 2 MG INJ IV PRN (21:47)
[2016-10-31] MEDS: ATORVASTATIN 40 MG TAB PO SCH (21:48)
--- NOTE | 2016-10-31 22:20 | CONS ---
Date/Time of Note Date/Time of Note DATE: 10/31/16 TIME: 22:19 Assessment/Plan Assessment/Plan Chief Complaint/Hosp Course -Anemia (Stable hgb 8.8 S/P EGD ([facility]) Esophagitis POST BMBX- AT H ASPIRATE - NEG, THE REST -P AWAIT FINAL PATH MONITOR BLOOD COUNT CLOSELY NSTEMI Multivessel CAD History of seizure History of alcoholism History of C difficile colitis Diabetes mellitus Problems: Consultation Date/Type/Reason Admit Date/Time Oct 27, 2016 at 22:32 Initial Consult Date 10/28/16 Type of Consultation: HEMEONC 24 HR Interval Summary Free Text/Dictation Hemoglobin stable Tolerating diet At bedside reports no diarrhea COUNT STABLE FINAL PATH- BMBX- P Exam/Review of Systems Vital Signs Vitals Vital Signs Date Time Temp Pulse Resp B/P Pulse Ox O2 Delivery O2 Flow Rate FiO2 10/31/16 20:18 77 10/31/16 16:41 97.7 18 137/74 95 10/28/16 15:49 Room Air Intake and Output 10/30/16 10/30/16 10/31/16 15:00 23:00 07:00 Intake Total 870 ml 60 ml Output Total 600 ml 1200 ml Balance 270 ml -1140 ml Exam Exam Constitutional: alert, oriented, well developed Psych: nl mood/affect Head: normocephalic Eyes: EOMI, nl conjunctiva, nl lids ENMT: nl external ears & nose, nl lips & teeth, nl nasal mucosa & septum Respiratory: clear to auscultation, normal air movement Cardiovascular: regular rate and rhythm Gastrointestinal: soft, diffuse tenderness Musculoskeletal: nl extremities to inspection Neurological: PNEUMATIC JACKETER II-XII intact Results Result Diagram: 10/31/16 0723 10/31/16 0723 Results 24 hrs Laboratory Tests Test 10/31/16 07:23 10/31/16 08:43 10/31/16 11:26 10/31/16 16:51 White Blood Count 7.2 # Red Blood Count 4.08 L Hemoglobin 9.8 L Hematocrit 32.5 L Mean Corpuscular Volume 79.7 L Mean Corpuscular Hemoglobin 24.0 L Mean Corpuscular Hemoglobin Concent 30.2 L Red Cell Distribution Width 14.9 H Platelet Count 275 Mean Platelet Volume 9.1 Neutrophils % 74.8 Lymphocytes % 15.5 Monocytes % 5.5 Eosinophils % 3.7 Basophils % 0.1 Nucleated Red Blood Cells % 0.0 Neutrophils # 5.4 Lymphocytes # 1.1 Monocytes # 0.4 Eosinophils # 0.3 Basophils # 0.0 Nucleated Red Blood Cells # 0.0 Sodium Level 139 Potassium Level 4.7 Chloride Level 100 Carbon Dioxide Level 30 Anion Gap 14 Blood Urea Nitrogen 20 Creatinine 0.78 Glucose Level 198 Calcium Level 9.0 Phosphorus Level 4.3 Magnesium Level 2.1 Bedside Glucose 193 197 245 H Test 10/31/16 21:50 Bedside Glucose 230 H Medications Medications Current Medications Lorazepam (Ativan) 0.5 mg Q6H PRN IV ANXIETY; Start 10/28/16 at 04:00 Acetaminophen (Tylenol Supp) 650 mg Q6H PRN [place] PAIN LEVEL 1-3 OR FEVER; Start 10/28/16 at 04:00 Morphine Sulfate (morphine) 2 mg Q4H PRN IV PAIN LEVEL 7-10 Last administered on 10/31/16 21:47; Admin Dose 2 MG; Start 10/28/16 at 04:00 Aspirin (Aspirin) 81 mg DAILY PO Last administered on 10/31/16 08:43; Admin Dose 81 MG; Start 10/28/16 at 09:00 Atorvastatin Calcium (Lipitor) 40 mg HS PO Last administered on 10/31/16 21:48 ; Admin Dose 40 MG; Start 10/28/16 at 21:00 Metoprolol Tartrate (Lopressor) 25 mg BID PO Last administered on 10/31/16 21: 49; Admin Dose 25 MG; Start 10/28/16 at 09:00 Morphine Sulfate (morphine) 2 mg Q2H PRN IV FOR NON CARDIAC PAIN (4-10) Last administered on 10/28/16 15:13; Admin Dose 2 MG; Start 10/28/16 at 14:00 Ondansetron HCl (Zofran Inj) 4 mg Q4H PRN IV NAUSEA AND/OR VOMITING; Start at 14:00 Enoxaparin Sodium (Lovenox) 40 mg DAILY SC Last administered on 10/31/16 08:47 ; Admin Dose 40 MG; Start 10/29/16 at 09:00 Acetaminophen/ Hydrocodone Bitart ([place] (5/325)) 1 tab Q4H PRN PO MODERATE PAIN LEVEL 4-6 Last administered on 10/29/16 00:09; Admin Dose 1 TAB; Start at 00:00 Acetaminophen/ Hydrocodone Bitart ([place] (5/325)) 2 tab Q4H PRN PO SEVERE PAIN LEVEL 7-10; Start 10/29/16 at 00:00 Mupirocin (Bactroban) 1 applic BID TOP Last administered on 10/31/16 21:55; Admin Dose 1 APPLIC; Start 10/29/16 at 14:00; Stop 11/12/16 at 13:59 Lactobacillus Acidoph/Bulgaricus (Floranex) 1 tab BID PO Last administered on 21:48; Admin Dose 1 TAB; Start 10/30/16 at 13:00 Mupirocin (Bactroban) 1 applic BID TOP Last administered on 10/31/16 08:54; Admin Dose 1 APPLIC; Start 10/31/16 at 09:00; Stop 11/15/16 at 23:00 Vancomycin HCl PER PHARMACY DOSING NOTE XX ; Start 10/31/16 at 01:00 Vancomycin HCl/ Sodium Chloride (Vancocin/NS) 250 ml @ 83.333 mls/ hr Q12H IVPB Last administered on 10/31/16 14:22; Admin Dose 83.333 MLS/HR; Start at 14:00 Miscellaneous Information (*Rx Drug Level Order Reminder*) VANCOMYCIN TROUGH AT 1300 ONCE ONCE XX ; Start 11/01/16 at 13:00; Stop 11/01/16 at 13:01 Diagnostic Test (Pha) (Accu-Chek) 1 ea 02 XX ; Start 11/01/16 at 02:00 Lamotrigine (Lamictal) 200 mg BID PO Last administered on 10/31/16 14:56; Admin Dose 200 MG; Start 10/31/16 at 14:30 Miscellaneous Information 1 ea NOTE XX ; Start 10/31/16 at 13:30 Glucose (Glutose) 15 gm Q15M PRN PO DECREASED GLUCOSE; Start 10/31/16 at 13:30 Glucose (Glutose) 22.5 gm Q15M PRN PO DECREASED GLUCOSE; Start 10/31/16 at 13: 30 Dextrose (D50w Syringe) 25 ml Q15M PRN IV DECREASED GLUCOSE; Start 10/31/16 at 13:30 Dextrose (D50w Syringe) 50 ml Q15M PRN IV DECREASED GLUCOSE; Start 10/31/16 at 13:30 Glucagon (Glucagen) 1 mg Q15M PRN IM DECREASED GLUCOSE; Start 10/31/16 at 13:30 Glucose (Glutose) 15 gm Q15M PRN BUCCAL DECREASED GLUCOSE; Start 10/31/16 at 13 :30 Insulin Glargine (Lantus) 10 unit HS SC ; Start 10/31/16 at 23:00 BETO PADILLA MD Oct 31, 2016 22:20
[2016-10-31] MEDS: INSULIN GLARGINE [LANtus] 3 ML PEN SC SCH (23:33)
[2016-11-01] VITALS (12 sets, daily range): BP systolic 111–134; BP diastolic 61–80; PULSE 70–84; RESP 18–22
[2016-11-01] MEDS: VANCOMYCIN 1.25 GM in SOD CHLORIDE 0.9% 250 ML IVPB SCH ×2 (01:59→14:34)
[2016-11-01] MEDS: ACCU-CHEK XX SCH (02:07)
[2016-11-01] MEDS: morphine 2 MG INJ IV PRN ×2 (02:12→21:57)
[2016-11-01 07:09] LABS: ADD SCAN DIFF NO
[2016-11-01 07:14] LABS: BASOPHILS % 0.1 % (0.0-2.0); EOSINOPHILS # 0.4 10^3/ul (0.0-0.5); EOSINOPHILS % 4.4 % (0.0-7.0); LYMPHOCYTES # 1.3 10^3/ul (0.8-2.9); LYMPHOCYTES % 16.6 % (15.0-51.0); MEAN CORPUSCULAR HEMOGLOBIN 24.7 pg (29.0-33.0); MEAN CORPUSCULAR VOLUME 79.5 fl (82.0-101.0); MEAN PLATELET VOLUME 9.2 fl (7.4-10.4); MONOCYTE # 0.5 10^3/ul (0.3-0.9); MONOCYTES % 5.8 % (0.0-11.0); NEUTROPHIL # 5.8 10^3/ul (1.6-7.5); NEUTROPHILS % 72.7 % (39.0-77.0); PLATELET COUNT 250 10^3/UL (140-415); RED BLOOD COUNT 3.65 10^6/ul (4.70-6.10); RED CELL DISTRIBUTION WIDTH 14.9 % (11.5-14.5)
[2016-11-01 07:35] LABS: POTASSIUM 4.2 mmol/L (3.5-5.1)
[2016-11-01 07:38] LABS: CREATININE 0.86 mg/dl (0.61-1.24)
[2016-11-01 07:39] LABS: CALCIUM 8.6 mg/dl (8.4-10.2)
[2016-11-01] MEDS: MUPIROCIN 2% 22 GM OINT TOP SCH ×2 (09:01→21:00)
[2016-11-01] MEDS: INSULIN ASPART [NOVOLOG] 3 ML PEN SC SCH ×4 (09:02→21:00)
[2016-11-01] MEDS: LACTOBACILLUS CHEW TAB PO SCH ×2 (09:03→21:47)
[2016-11-01] MEDS: LAMOTRIGINE 100 MG TAB PO SCH ×2 (09:03→21:46)
[2016-11-01] MEDS: ENOXAPARIN 40 MG/0.4 ML SYG SC SCH (09:03)
[2016-11-01] MEDS: ASPIRIN 81 MG TAB PO SCH (09:03)
[2016-11-01] MEDS: METOPROLOL 25 MG TAB PO SCH ×2 (09:04→21:47)
--- NOTE | 2016-11-01 11:16 | PN ---
Date/Time of Note Date/Time of Note DATE: 11/01/16 TIME: 11:10 Assessment/Plan VTE Prophylaxis VTE Prophylaxis Intervention: SCD's Lines/Catheters IV Catheter Type (from Nrs): Urinary Cath still in place: No Assessment/Plan Assessment/Plan Assessment -Anemia (Stable hgb 9) S/P EGD ([facility]) Esophagitis NSTEMI Multivessel CAD History of seizure History of alcoholism History of C difficile colitis Diabetes mellitus Plan - stool for occult blood- awaiting results - proton pump inhibitor Subjective 24 Hr Interval Summary Free Text/Dictation * course reviewed with nursing staff * patient seen and examined * tolerating diet ,no hematemesis.hematochezia nor diarrhea * Hemoglobin drop from 9.8 to 9 * MRSA(+) Exam/Review of Systems Vital Signs Vitals Vital Signs Date Time Temp Pulse Resp B/P Pulse Ox O2 Delivery O2 Flow Rate FiO2 11/01/16 08:24 78 11/01/16 07:44 97.9 22 111/65 96 10/28/16 15:49 Room Air Intake and Output 10/31/16 10/31/16 11/01/16 15:00 23:00 07:00 Intake Total 1270 ml 310 ml Balance 1270 ml 310 ml Exam Constitutional: alert, oriented, well developed Psych: nl mood/affect Respiratory: clear to auscultation, normal air movement Cardiovascular: regular rate and rhythm Gastrointestinal: soft, non tender bowel sounds Musculoskeletal: nl extremities to inspection Results Result Diagram: 11/01/16 0555 11/01/16 0555 Results 24 hrs Laboratory Tests Test 10/31/16 11:26 10/31/16 16:51 10/31/16 21:50 11/01/16 02:00 Bedside Glucose 197 245 H 230 H 233 H Test 11/01/16 05:55 11/01/16 08:07 White Blood Count 8.0 Red Blood Count 3.65 L Hemoglobin 9.0 L Hematocrit 29.0 L Mean Corpuscular Volume 79.5 L Mean Corpuscular Hemoglobin 24.7 L Mean Corpuscular Hemoglobin Concent 31.0 L Red Cell Distribution Width 14.9 H Platelet Count 250 Mean Platelet Volume 9.2 Neutrophils % 72.7 Lymphocytes % 16.6 Monocytes % 5.8 Eosinophils % 4.4 Basophils % 0.1 Nucleated Red Blood Cells % 0.0 Neutrophils # 5.8 Lymphocytes # 1.3 Monocytes # 0.5 Eosinophils # 0.4 Basophils # 0.0 Nucleated Red Blood Cells # 0.0 Sodium Level 140 Potassium Level 4.2 Chloride Level 102 Carbon Dioxide Level 29 Anion Gap 13 Blood Urea Nitrogen 21 H Creatinine 0.86 Glucose Level 171 Calcium Level 8.6 Bedside Glucose 173 Medications Medications Current Medications Lorazepam (Ativan) 0.5 mg Q6H PRN IV ANXIETY; Start 10/28/16 at 04:00 Acetaminophen (Tylenol Supp) 650 mg Q6H PRN OR PAIN LEVEL 1-3 OR FEVER; Start 10/28/16 at 04:00 Morphine Sulfate (morphine) 2 mg Q4H PRN IV PAIN LEVEL 7-10 Last administered on 11/01/16 02:12; Admin Dose 2 MG; Start 10/28/16 at 04:00 Aspirin (Aspirin) 81 mg DAILY PO Last administered on 11/01/16 09:03; Admin Dose 81 MG; Start 10/28/16 at 09:00 Atorvastatin Calcium (Lipitor) 40 mg HS PO Last administered on 10/31/16 21:48 ; Admin Dose 40 MG; Start 10/28/16 at 21:00 Metoprolol Tartrate (Lopressor) 25 mg BID PO Last administered on 11/01/16 09: 04; Admin Dose 25 MG; Start 10/28/16 at 09:00 Morphine Sulfate (morphine) 2 mg Q2H PRN IV FOR NON CARDIAC PAIN (4-10) Last administered on 10/28/16 15:13; Admin Dose 2 MG; Start 10/28/16 at 14:00 Ondansetron HCl (Zofran Inj) 4 mg Q4H PRN IV NAUSEA AND/OR VOMITING; Start at 14:00 Enoxaparin Sodium (Lovenox) 40 mg DAILY SC Last administered on 11/01/16 09:03 ; Admin Dose 40 MG; Start 10/29/16 at 09:00 Acetaminophen/ Hydrocodone Bitart ([place] (5/325)) 1 tab Q4H PRN PO MODERATE PAIN LEVEL 4-6 Last administered on 10/29/16 00:09; Admin Dose 1 TAB; Start at 00:00 Acetaminophen/ Hydrocodone Bitart ([place] (5/325)) 2 tab Q4H PRN PO SEVERE PAIN LEVEL 7-10; Start 10/29/16 at 00:00 Lactobacillus Acidoph/Bulgaricus (Floranex) 1 tab BID PO Last administered on 09:03; Admin Dose 1 TAB; Start 10/30/16 at 13:00 Mupirocin (Bactroban) 1 applic BID TOP Last administered on 11/01/16 09:01; Admin Dose 1 APPLIC; Start 10/31/16 at 09:00; Stop 11/15/16 at 23:00 Vancomycin HCl PER PHARMACY DOSING NOTE XX ; Start 10/31/16 at 01:00 Vancomycin HCl/ Sodium Chloride (Vancocin/NS) 250 ml @ 83.333 mls/ hr Q12H IVPB Last administered on 11/01/16 01:59; Admin Dose 83.333 MLS/HR; Start at 14:00 Miscellaneous Information (*Rx Drug Level Order Reminder*) VANCOMYCIN TROUGH AT 1300 ONCE ONCE XX ; Start 11/01/16 at 13:00; Stop 11/01/16 at 13:01 Diagnostic Test (Pha) (Accu-Chek) 1 ea 02 XX Last administered on 11/01/16 02: 07; Admin Dose 1 EA; Start 11/01/16 at 02:00 Lamotrigine (Lamictal) 200 mg BID PO Last administered on 11/01/16 09:03; Admin Dose 200 MG; Start 10/31/16 at 14:30 Miscellaneous Information 1 ea NOTE XX ; Start 10/31/16 at 13:30 Glucose (Glutose) 15 gm Q15M PRN PO DECREASED GLUCOSE; Start 10/31/16 at 13:30 Glucose (Glutose) 22.5 gm Q15M PRN PO DECREASED GLUCOSE; Start 10/31/16 at 13: 30 Dextrose (D50w Syringe) 25 ml Q15M PRN IV DECREASED GLUCOSE; Start 10/31/16 at 13:30 Dextrose (D50w Syringe) 50 ml Q15M PRN IV DECREASED GLUCOSE; Start 10/31/16 at 13:30 Glucagon (Glucagen) 1 mg Q15M PRN IM DECREASED GLUCOSE; Start 10/31/16 at 13:30 Glucose (Glutose) 15 gm Q15M PRN BUCCAL DECREASED GLUCOSE; Start 10/31/16 at 13 :30 Insulin Glargine (Lantus) 10 unit HS SC Last administered on 10/31/16 23:33; Admin Dose 10 UNIT; Start 10/31/16 at 23:00 DIANA BELL MD Nov 01, 2016 11:15 :30 Insulin Glargine (Lantus) 10 unit HS SC Last administered on 10/31/16 23:33; Admin Dose 10 UNIT; Start 10/31/16 at 23:00 DIANA BELL MD Nov 01, 2016 11:15
--- NOTE | 2016-11-01 13:03 | CONS ---
Date/Time of Note Date/Time of Note DATE: 11/01/16 TIME: 13:03 Assessment/Plan Assessment/Plan Chief Complaint/Hosp Course -Anemia (Stable hgb 8.8 S/P EGD ([facility]) Esophagitis POST BMBX- AT [facility] ASPIRATE - NEG, THE REST -P AWAIT FINAL PATH MONITOR BLOOD COUNT CLOSELY NSTEMI Multivessel CAD, POST CABG History of seizure History of alcoholism History of C difficile colitis Diabetes mellitus Problems: Consultation Date/Type/Reason Admit Date/Time Oct 27, 2016 at 22:32 Initial Consult Date 10/28/16 Type of Consultation: HEMEONC 24 HR Interval Summary Free Text/Dictation Status post CABG today. Doing well post-operatively. Hemodynamically stable on low dose dopamine. Intubated in ICU. Detailed Summary Additional Comments Unable to obtain review of systems, patient is intubated. Exam/Review of Systems Vital Signs Vitals Vital Signs Date Time Temp Pulse Resp B/P Pulse Ox O2 Delivery O2 Flow Rate FiO2 11/01/16 12:11 76 11/01/16 11:59 98.1 22 124/61 96 10/28/16 15:49 Room Air Intake and Output 10/31/16 10/31/16 11/01/16 15:00 23:00 07:00 Intake Total 1270 ml 310 ml Balance 1270 ml 310 ml Exam Exam Constitutional: other (intubated), No alert Psych: No nl mood/affect Head: atraumatic, normocephalic Eyes: nl conjunctiva, nl lids ENMT: intubated Neck: non-tender, supple, No jvd Respiratory: clear to auscultation, No crackles/rales Cardiovascular: regular rate and rhythm Gastrointestinal: non-tender, soft Extremities: No clubbing, No cyanosis, No edema Neurological: No nl mental status, No nl speech Results Result Diagram: 11/01/16 0555 11/01/16 0555 Results 24 hrs Laboratory Tests Test 10/31/16 16:51 10/31/16 21:50 11/01/16 02:00 11/01/16 05:55 Bedside Glucose 245 H 230 H 233 H White Blood Count 8.0 Red Blood Count 3.65 L Hemoglobin 9.0 L Hematocrit 29.0 L Mean Corpuscular Volume 79.5 L Mean Corpuscular Hemoglobin 24.7 L Mean Corpuscular Hemoglobin Concent 31.0 L Red Cell Distribution Width 14.9 H Platelet Count 250 Mean Platelet Volume 9.2 Neutrophils % 72.7 Lymphocytes % 16.6 Monocytes % 5.8 Eosinophils % 4.4 Basophils % 0.1 Nucleated Red Blood Cells % 0.0 Neutrophils # 5.8 Lymphocytes # 1.3 Monocytes # 0.5 Eosinophils # 0.4 Basophils # 0.0 Nucleated Red Blood Cells # 0.0 Sodium Level 140 Potassium Level 4.2 Chloride Level 102 Carbon Dioxide Level 29 Anion Gap 13 Blood Urea Nitrogen 21 H Creatinine 0.86 Glucose Level 171 Calcium Level 8.6 Test 11/01/16 08:07 11/01/16 11:41 Bedside Glucose 173 188 Medications Medications Current Medications Lorazepam (Ativan) 0.5 mg Q6H PRN IV ANXIETY; Start 10/28/16 at 04:00 Acetaminophen (Tylenol Supp) 650 mg Q6H PRN [place] PAIN LEVEL 1-3 OR FEVER; Start 10/28/16 at 04:00 Morphine Sulfate (morphine) 2 mg Q4H PRN IV PAIN LEVEL 7-10 Last administered on 11/01/16 02:12; Admin Dose 2 MG; Start 10/28/16 at 04:00 Aspirin (Aspirin) 81 mg DAILY PO Last administered on 11/01/16 09:03; Admin Dose 81 MG; Start 10/28/16 at 09:00 Atorvastatin Calcium (Lipitor) 40 mg HS PO Last administered on 10/31/16 21:48 ; Admin Dose 40 MG; Start 10/28/16 at 21:00 Metoprolol Tartrate (Lopressor) 25 mg BID PO Last administered on 11/01/16 09: 04; Admin Dose 25 MG; Start 10/28/16 at 09:00 Morphine Sulfate (morphine) 2 mg Q2H PRN IV FOR NON CARDIAC PAIN (4-10) Last administered on 10/28/16 15:13; Admin Dose 2 MG; Start 10/28/16 at 14:00 Ondansetron HCl (Zofran Inj) 4 mg Q4H PRN IV NAUSEA AND/OR VOMITING; Start at 14:00 Enoxaparin Sodium (Lovenox) 40 mg DAILY SC Last administered on 11/01/16 09:03 ; Admin Dose 40 MG; Start 10/29/16 at 09:00 Acetaminophen/ Hydrocodone Bitart ([place] (5/325)) 1 tab Q4H PRN PO MODERATE PAIN LEVEL 4-6 Last administered on 10/29/16 00:09; Admin Dose 1 TAB; Start at 00:00 Acetaminophen/ Hydrocodone Bitart ([place] (5/325)) 2 tab Q4H PRN PO SEVERE PAIN LEVEL 7-10; Start 10/29/16 at 00:00 Lactobacillus Acidoph/Bulgaricus (Floranex) 1 tab BID PO Last administered on 09:03; Admin Dose 1 TAB; Start 10/30/16 at 13:00 Mupirocin (Bactroban) 1 applic BID TOP Last administered on 11/01/16 09:01; Admin Dose 1 APPLIC; Start 10/31/16 at 09:00; Stop 11/15/16 at 23:00 Vancomycin HCl PER PHARMACY DOSING NOTE XX ; Start 10/31/16 at 01:00 Vancomycin HCl/ Sodium Chloride (Vancocin/NS) 250 ml @ 83.333 mls/ hr Q12H IVPB Last administered on 11/01/16 01:59; Admin Dose 83.333 MLS/HR; Start at 14:00 Diagnostic Test (Pha) (Accu-Chek) 1 ea 02 XX Last administered on 11/01/16 02: 07; Admin Dose 1 EA; Start 11/01/16 at 02:00 Lamotrigine (Lamictal) 200 mg BID PO Last administered on 11/01/16 09:03; Admin Dose 200 MG; Start 10/31/16 at 14:30 Miscellaneous Information 1 ea NOTE XX ; Start 10/31/16 at 13:30 Glucose (Glutose) 15 gm Q15M PRN PO DECREASED GLUCOSE; Start 10/31/16 at 13:30 Glucose (Glutose) 22.5 gm Q15M PRN PO DECREASED GLUCOSE; Start 10/31/16 at 13: 30 Dextrose (D50w Syringe) 25 ml Q15M PRN IV DECREASED GLUCOSE; Start 10/31/16 at 13:30 Dextrose (D50w Syringe) 50 ml Q15M PRN IV DECREASED GLUCOSE; Start 10/31/16 at 13:30 Glucagon (Glucagen) 1 mg Q15M PRN IM DECREASED GLUCOSE; Start 10/31/16 at 13:30 Glucose (Glutose) 15 gm Q15M PRN BUCCAL DECREASED GLUCOSE; Start 10/31/16 at 13 :30 Insulin Glargine (Lantus) 10 unit HS SC Last administered on 10/31/16t 23:33; Admin Dose 10 UNIT; Start 10/31/16 at 23:00 BETO PADILLA MD Nov 01, 2016 13:03
--- NOTE | 2016-11-01 13:32 | PN ---
DATE: 11/01/2016 INFECTIOUS DISEASE PROGRESS NOTE SUBJECTIVE: No acute changes. The patient is alert, feels good. Denies pain, discomfort. He is w atching TV, no fevers. WBC today 8, no shift, no bands. BUN 21, creatinine 0.86. MICROBIOLOGY: Nares swab came back positive for MRSA. ANTIMICROBIALS: The patient is on IV vancomycin, topical Bactroban to nares and Hibiclens baths daniel ly. PHYSICAL EXAMINATION: GENERAL: Well-developed elderly man who is alert, in no distress. HEENT: Head atraumatic, normocephalic. Sclerae anicteric. Buccal mucosa pink. NECK: Supple, trachea midline. CHEST: Rise symmetrical. Breath sounds diminished to bases. HEART: S1, S2. ABDOMEN: Soft. Bowel tones present. EXTREMITIES: No cyanosis. Bilateral trace edema. ASSESSMENT: 1. Coronary artery disease, status post myocardial infarction. 2. Status post decompensated congestive heart failure with pleural effusion. 3. Diabetes. 4. Anemia. 5. Methicillin-resistant Staphylococcus aureus positive nares. PLAN: The patient remains stable. He is scheduled for CABG. He is on Methicillin-resistant Staphy lococcus aureus decontamination with vancomycin as well as Bactroban to nares and Hibiclens baths. Dictated By: CINDY PINA PICKER MACHINE OPERATOR for LISSETH RAND/JOSELINE Conf#: [id number] DID#: [id number]
--- NOTE | 2016-11-01 13:33 | PN ---
Date/Time of Note Date/Time of Note DATE: 11/01/16 TIME: 13:33 Assessment/Plan Lines/Catheters IV Catheter Type (from Nrs): Guerra in Place (from Nrsg): No Assessment/Plan Chief Complaint/Hosp Course MPRESSION: 1. Coronary artery disease. 2. Status post myocardial infarction. 3. Anemia. 4. Gastrointestinal bleeding. 5. Seizure disorder. 6. Peripheral vascular disease status post foot amputation. RECOMMENDATIONS: The patient is a candidate to undergo coronary artery bypass grafting; however, his GI bleeding needs to be fully evaluated because during the course of open heart surgery, he would be given a very large dose of heparin. Plan for after pt is cleared by ID This was discussed with the patient and the referring physicians. Problems: Subjective 24 Hr Interval Summary Constitutional: improved Pain Control: mild Exam/Review of Systems Vital Signs Vitals Vital Signs Date Time Temp Pulse Resp B/P Pulse Ox O2 Delivery O2 Flow Rate FiO2 11/01/16 12:11 76 11/01/16 11:59 98.1 22 124/61 96 10/28/16 15:49 Room Air Intake and Output 10/31/16 10/31/16 11/01/16 15:00 23:00 07:00 Intake Total 1270 ml 310 ml Balance 1270 ml 310 ml Exam Neck: non-tender, supple Respiratory: clear to auscultation, normal air movement Cardiovascular: nl pulses, regular rate and rhythm Gastrointestinal: nl liver, spleen, non-tender, soft Results Result Diagram: 11/01/16 0555 11/01/16 0555 JOAN WATTS MD Nov 01, 2016 13:33
--- NOTE | 2016-11-01 15:57 | PN ---
Date/Time of Note Date/Time of Note DATE: 11/01/16 TIME: 15:46 Assessment/Plan VTE Prophylaxis VTE Prophylaxis Intervention: LMWH Lines/Catheters IV Catheter Type (from Nrs): Urinary Cath still in place: No Assessment/Plan Assessment/Plan 1. Coronary artery disease, NSTEMI, 3v disease, CABG tomorrow per surgery 2. H/o of upper GI bleeding with esophagitis on EGD, stable 3. Microcytic anemia. stable 4. Diabetes mellitus, on insulin 5. Seizure disorder. stable 6. Peripheral vascular disease status post foot amputation Subjective 24 Hr Interval Summary Free Text/Dictation no chest pain, no shortness of breath Exam/Review of Systems Vital Signs Vitals Vital Signs Date Time Temp Pulse Resp B/P Pulse Ox O2 Delivery O2 Flow Rate FiO2 11/01/16 12:11 76 11/01/16 11:59 98.1 22 124/61 96 10/28/16 15:49 Room Air Intake and Output 10/31/16 10/31/16 11/01/16 15:00 23:00 07:00 Intake Total 1270 ml 310 ml Balance 1270 ml 310 ml Exam Constitutional: oriented, well developed Psych: nl mood/affect, no complaints Head: atraumatic, normocephalic Eyes: EOMI, PERRL, nl conjunctiva, nl lids ENMT: nl external ears & nose, nl lips & teeth, nl nasal mucosa & septum Neck: non-tender, supple Respiratory: clear to auscultation, normal air movement, No congested cough, No crackles/rales, No diminished breath sounds, No intercostal retraction, No labored breathing, No other, No respirations, No tactile fremitus, No wheezing Cardiovascular: nl pulses, regular rate and rhythm, No S3, No S4, No bruits, No diastolic murmur, No edema, No gallop, No irregular rhythm, No jugular venous distention (JVD), No murmurs/extra sounds, No other, No rub, No systolic murmur Gastrointestinal: nl liver, spleen, non-tender, soft, No ascites, No bowel sounds, No distended, No firm, No hepatomegaly, No mass , No other, No rebound or guarding, No splenomegaly, No surgical scars, No tender Musculoskeletal: nl extremities to inspection Extremities: normal pulses, No calf tenderness, No clubbing, No cyanosis, No edema, No other, No palpable cord, No pitting pedal edema, No tenderness Neurological: ACTUARIAL DIRECTOR II-XII intact, nl mental status, nl speech, nl strength Skin: nl turgor Lymph: nl lymph nodes Results Result Diagram: 11/01/16 0555 11/01/16 0555 Results 24 hrs Laboratory Tests Test 10/31/16 16:51 10/31/16 21:50 11/01/16 02:00 11/01/16 05:55 Bedside Glucose 245 H 230 H 233 H White Blood Count 8.0 Red Blood Count 3.65 L Hemoglobin 9.0 L Hematocrit 29.0 L Mean Corpuscular Volume 79.5 L Mean Corpuscular Hemoglobin 24.7 L Mean Corpuscular Hemoglobin Concent 31.0 L Red Cell Distribution Width 14.9 H Platelet Count 250 Mean Platelet Volume 9.2 Neutrophils % 72.7 Lymphocytes % 16.6 Monocytes % 5.8 Eosinophils % 4.4 Basophils % 0.1 Nucleated Red Blood Cells % 0.0 Neutrophils # 5.8 Lymphocytes # 1.3 Monocytes # 0.5 Eosinophils # 0.4 Basophils # 0.0 Nucleated Red Blood Cells # 0.0 Sodium Level 140 Potassium Level 4.2 Chloride Level 102 Carbon Dioxide Level 29 Anion Gap 13 Blood Urea Nitrogen 21 H Creatinine 0.86 Glucose Level 171 Calcium Level 8.6 Test 11/01/16 08:07 11/01/16 11:41 11/01/16 13:18 Bedside Glucose 173 188 Vancomycin Level Trough 16.6 Medications Medications Current Medications Lorazepam (Ativan) 0.5 mg Q6H PRN IV ANXIETY; Start 10/28/16 at 04:00 Acetaminophen (Tylenol Supp) 650 mg Q6H PRN [place] PAIN LEVEL 1-3 OR FEVER; Start 10/28/16 at 04:00 Morphine Sulfate (morphine) 2 mg Q4H PRN IV PAIN LEVEL 7-10 Last administered on 11/01/16 02:12; Admin Dose 2 MG; Start 10/28/16 at 04:00 Aspirin (Aspirin) 81 mg DAILY PO Last administered on 11/01/16 09:03; Admin Dose 81 MG; Start 10/28/16 at 09:00 Atorvastatin Calcium (Lipitor) 40 mg HS PO Last administered on 10/31/16 21:48 ; Admin Dose 40 MG; Start 10/28/16 at 21:00 Metoprolol Tartrate (Lopressor) 25 mg BID PO Last administered on 11/01/16 09: 04; Admin Dose 25 MG; Start 10/28/16 at 09:00 Morphine Sulfate (morphine) 2 mg Q2H PRN IV FOR NON CARDIAC PAIN (4-10) Last administered on 10/28/16 15:13; Admin Dose 2 MG; Start 10/28/16 at 14:00 Ondansetron HCl (Zofran Inj) 4 mg Q4H PRN IV NAUSEA AND/OR VOMITING; Start at 14:00 Enoxaparin Sodium (Lovenox) 40 mg DAILY SC Last administered on 11/01/16 09:03 ; Admin Dose 40 MG; Start 10/29/16 at 09:00 Acetaminophen/ Hydrocodone Bitart ([place] (5/325)) 1 tab Q4H PRN PO MODERATE PAIN LEVEL 4-6 Last administered on 10/29/16 00:09; Admin Dose 1 TAB; Start at 00:00 Acetaminophen/ Hydrocodone Bitart ([place] (5/325)) 2 tab Q4H PRN PO SEVERE PAIN LEVEL 7-10; Start 10/29/16 at 00:00 Lactobacillus Acidoph/Bulgaricus (Floranex) 1 tab BID PO Last administered on 09:03; Admin Dose 1 TAB; Start 10/30/16 at 13:00 Mupirocin (Bactroban) 1 applic BID TOP Last administered on 11/01/16 09:01; Admin Dose 1 APPLIC; Start 10/31/16 at 09:00; Stop 11/15/16 at 23:00 Vancomycin HCl PER PHARMACY DOSING NOTE XX ; Start 10/31/16 at 01:00 Vancomycin HCl/ Sodium Chloride (Vancocin/NS) 250 ml @ 83.333 mls/ hr Q12H IVPB Last administered on 11/01/16 14:34; Admin Dose 83.333 MLS/HR; Start at 14:00; Stop 11/01/16 at 18:00 Diagnostic Test (Pha) (Accu-Chek) 1 ea 02 XX Last administered on 11/01/16 02: 07; Admin Dose 1 EA; Start 11/01/16 at 02:00 Lamotrigine (Lamictal) 200 mg BID PO Last administered on 11/01/16 09:03; Admin Dose 200 MG; Start 10/31/16 at 14:30 Miscellaneous Information 1 ea NOTE XX ; Start 10/31/16 at 13:30 Glucose (Glutose) 15 gm Q15M PRN PO DECREASED GLUCOSE; Start 10/31/16 at 13:30 Glucose (Glutose) 22.5 gm Q15M PRN PO DECREASED GLUCOSE; Start 10/31/16 at 13: 30 Dextrose (D50w Syringe) 25 ml Q15M PRN IV DECREASED GLUCOSE; Start 10/31/16 at 13:30 Dextrose (D50w Syringe) 50 ml Q15M PRN IV DECREASED GLUCOSE; Start 10/31/16 at 13:30 Glucagon (Glucagen) 1 mg Q15M PRN IM DECREASED GLUCOSE; Start 10/31/16 at 13:30 Glucose (Glutose) 15 gm Q15M PRN BUCCAL DECREASED GLUCOSE; Start 10/31/16 at 13 :30 Insulin Glargine 10 unit 10 unit HS SC Last administered on 10/31/16 23:33; Admin Dose 10 UNIT; Start 10/31/16 at 23:00 Vancomycin HCl (Vancocin) 250 ml @ 125 mls/hr Q12H IVPB ; Start 11/02/16 at 02: 00 ARIANNA NGUYEN MD Nov 01, 2016 15:57
[2016-11-01] MEDS: ATORVASTATIN 40 MG TAB PO SCH (21:46)
[2016-11-01] MEDS: INSULIN GLARGINE [LANtus] 3 ML PEN SC SCH (21:49)
[2016-11-02] VITALS (35 sets, daily range): BP systolic 83–131; BP diastolic 43–85; PULSE 75–116; RESP 11–28; TEMP 99.1–101.1
[2016-11-02] MEDS: ACCU-CHEK XX SCH ×6 (02:00→23:30)
[2016-11-02] MEDS: VANCOMYCIN 1 GM in NS 250 ML IVPB SCH ×2 (02:18→14:00)
[2016-11-02] MEDS ORDERED: DOPamine-D5W 1.6 MG/ML 250 ML ONE (07:00)
[2016-11-02] MEDS ORDERED: INSULIN REGULAR, HUMAN 100 UNIT/1 ML 3ML VIAL ONE (07:00)
[2016-11-02] MEDS ORDERED: NITROGLYCERIN 50 MG/D5W 250 ML BTL ONE (07:00)
[2016-11-02] MEDS ORDERED: HEPARIN 1000 UNITS/ML 10 ML INJ ONE ×5 (07:30→13:05)
[2016-11-02] MEDS ORDERED: GELATIN SIZE 100 SPONGE ONE (07:30)
[2016-11-02] MEDS ORDERED: SURGIFOAM POWDER 1 GM KIT ONE ×2 (07:30→16:12)
[2016-11-02] MEDS ORDERED: PAPAVERINE 60 MG INJ ONE (07:31)
[2016-11-02] MEDS ORDERED: THROMBIN 5000 UNIT VIAL ONE ×2 (07:31→16:12)
[2016-11-02] MEDS ORDERED: VANCOMYCIN 1 GM INJ ONE (07:31)
[2016-11-02] MEDS: INSULIN ASPART [NOVOLOG] 3 ML PEN SC SCH ×3 (08:00→12:00)
[2016-11-02 08:22] LABS: ADD SCAN DIFF NO
[2016-11-02 08:28] LABS: BASOPHILS % 0.4 % (0.0-2.0); EOSINOPHILS # 0.3 10^3/ul (0.0-0.5); EOSINOPHILS % 5.4 % (0.0-7.0); HEMATOCRIT 28.3 % (42.0-52.0); HEMOGLOBIN 8.6 g/dl (14.0-18.0); LYMPHOCYTES # 1.2 10^3/ul (0.8-2.9); LYMPHOCYTES % 21.7 % (15.0-51.0); MEAN CORPUSCULAR HEMOGLOBIN 24.3 pg (29.0-33.0); MEAN CORPUSCULAR HGB CONC 30.4 g/dl (32.0-37.0); MEAN CORPUSCULAR VOLUME 79.9 fl (82.0-101.0); MEAN PLATELET VOLUME 9.3 fl (7.4-10.4); MONOCYTE # 0.5 10^3/ul (0.3-0.9); MONOCYTES % 8.3 % (0.0-11.0); NEUTROPHIL # 3.5 10^3/ul (1.6-7.5); NEUTROPHILS % 63.8 % (39.0-77.0); PLATELET COUNT 227 10^3/UL (140-415); RED BLOOD COUNT 3.54 10^6/ul (4.70-6.10); RED CELL DISTRIBUTION WIDTH 14.9 % (11.5-14.5); WHITE BLOOD COUNT 5.5 10^3/ul (4.8-10.8)
[2016-11-02 08:39] LABS: INR 0.98
[2016-11-02 08:40] LABS: PARTIAL THROMBOPLASTIN TIME 33.5 Sec (25.0-35.0)
[2016-11-02 08:48] LABS: POTASSIUM 4.2 mmol/L (3.5-5.1)
[2016-11-02 08:51] LABS: CREATININE 0.84 mg/dl (0.61-1.24)
[2016-11-02 08:52] LABS: CALCIUM 8.6 mg/dl (8.4-10.2)
[2016-11-02] MEDS: LACTOBACILLUS CHEW TAB PO SCH ×2 (08:58→20:56)
[2016-11-02] MEDS: LAMOTRIGINE 100 MG TAB PO SCH ×3 (08:58→20:56)
[2016-11-02] MEDS: ASPIRIN 81 MG TAB PO SCH (08:58)
[2016-11-02] MEDS: METOPROLOL 25 MG TAB PO SCH ×3 (08:59→20:56)
[2016-11-02] MEDS: MUPIROCIN 2% 22 GM OINT TOP SCH ×2 (09:00→22:15)
[2016-11-02] MEDS ORDERED: SODIUM CL BACTERIOSTATIC 30 ML INJ ONE (09:01)
[2016-11-02] MEDS ORDERED: INSULIN REGULAR, HUMAN 100 UNIT in SOD CHLORIDE 0.9% 99 ML IV SCH ×2 (09:30)
[2016-11-02] MEDS ORDERED: EPINEPHrine 4 MG in DEXTROSE 5% 246 ML IV SCH (09:30)
[2016-11-02] MEDS ORDERED: PHENYLephrine 20MG IN 250 ML 250 ML IV SCH (09:30)
[2016-11-02] MEDS ORDERED: MIDAZOLAM 5 ML ONE ×2 (10:04→12:09)
[2016-11-02] MEDS ORDERED: PHENYLephrine (100 MCG/ML) 5ML SYG ONE ×2 (10:06→15:17)
[2016-11-02] MEDS ORDERED: PHENYLephrine 10 MG INJ ONE (10:12)
[2016-11-02] MEDS ORDERED: ALBUMIN HUMAN 25% 200 ML ONE (10:12)
[2016-11-02] MEDS ORDERED: LIDOCAINE 100 MG SYRINGE ONE ×2 (10:12→17:23)
[2016-11-02] MEDS ORDERED: CA CHLORIDE 10% 10 ML SYRINGE ONE (10:12)
[2016-11-02] MEDS ORDERED: NA BICARBONATE 8.4% 50 ML SYG ONE (10:12)
[2016-11-02] MEDS ORDERED: MANNITOL 25% 150 ML ONE (10:12)
[2016-11-02] MEDS ORDERED: POTASSIUM CHLORIDE 40 MEQ INJ ONE (10:13)
[2016-11-02] MEDS ORDERED: MAGNESIUM SULFATE (MG) 50% 10 ML INJ ONE (10:13)
[2016-11-02] MEDS ORDERED: AMINOCAPROIC ACID 5 GM INJ ONE ×4 (10:13→14:13)
[2016-11-02] MEDS ORDERED: CEFAZOLIN 1 GM INJ ONE ×2 (10:55→14:13)
--- NOTE | 2016-11-02 13:21 | CONS ---
Date/Time of Note Date/Time of Note DATE: 11/02/16 TIME: 13:20 Assessment/Plan Assessment/Plan Chief Complaint/Hosp Course SUBJECTIVE: No acute changes. The patient is alert, feels good. Denies pain, discomfort. MICROBIOLOGY: Nares swab came back positive for MRSA. ANTIMICROBIALS: The patient is on IV vancomycin, topical Bactroban to nares and Hibiclens baths daily. PHYSICAL EXAMINATION: GENERAL: Well-developed elderly man who is alert, in no distress. HEENT: Head atraumatic, normocephalic. Sclerae anicteric. Buccal mucosa pink. NECK: Supple, trachea midline. CHEST: Rise symmetrical. Breath sounds diminished to bases. HEART: S1, S2. ABDOMEN: Soft. Bowel tones present. EXTREMITIES: No cyanosis. Bilateral trace edema. ASSESSMENT: 1. Coronary artery disease, status post myocardial infarction. 2. Status post decompensated congestive heart failure with pleural effusion. 3. Diabetes. 4. Anemia. 5. Methicillin-resistant Staphylococcus aureus positive nares. PLAN: The patient remains stable. He is scheduled for CABG today. He is on Methicillin-resistant Staphylococcus aureus decontamination with vancomycin as well as Bactroban to nares and Hibiclens baths. DW staff Problems: Consultation Date/Type/Reason Admit Date/Time Oct 27, 2016 at 22:32 Initial Consult Date 10/28/16 Type of Consultation: ID Exam/Review of Systems Vital Signs Vitals Vital Signs Date Time Temp Pulse Resp B/P Pulse Ox O2 Delivery O2 Flow Rate FiO2 11/02/16 08:46 75 11/02/16 08:11 98.2 18 118/70 94 Intake and Output 11/01/16 11/01/16 11/02/16 15:00 23:00 07:00 Intake Total 1210 ml 1050 ml Output Total 500 ml Balance 710 ml 1050 ml Results Result Diagram: 11/02/16 0712 11/02/16 0712 Results 24 hrs Laboratory Tests Test 11/01/16 17:18 11/01/16 21:45 11/02/16 07:12 11/02/16 08:01 Bedside Glucose 223 H 147 142 White Blood Count 5.5 # Red Blood Count 3.54 L Hemoglobin 8.6 L Hematocrit 28.3 L Mean Corpuscular Volume 79.9 L Mean Corpuscular Hemoglobin 24.3 L Mean Corpuscular Hemoglobin Concent 30.4 L Red Cell Distribution Width 14.9 H Platelet Count 227 Mean Platelet Volume 9.3 Neutrophils % 63.8 Lymphocytes % 21.7 Monocytes % 8.3 Eosinophils % 5.4 Basophils % 0.4 Nucleated Red Blood Cells % 0.0 Neutrophils # 3.5 Lymphocytes # 1.2 Monocytes # 0.5 Eosinophils # 0.3 Basophils # 0.0 Nucleated Red Blood Cells # 0.0 Prothrombin Time 13.0 Prothrombin Time Ratio 1.0 INR International Normalized Ratio 0.98 Activated Partial Thromboplast Time 33.5 Sodium Level 137 Potassium Level 4.2 Chloride Level 102 Carbon Dioxide Level 27 Anion Gap 12 Blood Urea Nitrogen 25 H Creatinine 0.84 Glucose Level 154 Calcium Level 8.6 Medications Medications Current Medications Lorazepam (Ativan) 0.5 mg Q6H PRN IV ANXIETY; Start 10/28/16 at 04:00 Acetaminophen (Tylenol Supp) 650 mg Q6H PRN [place] PAIN LEVEL 1-3 OR FEVER; Start 10/28/16 at 04:00 Morphine Sulfate (morphine) 2 mg Q4H PRN IV PAIN LEVEL 7-10 Last administered on 11/01/16 21:57; Admin Dose 2 MG; Start 10/28/16 at 04:00 Aspirin (Aspirin) 81 mg DAILY PO Last administered on 11/01/16 09:03; Admin Dose 81 MG; Start 10/28/16 at 09:00 Atorvastatin Calcium (Lipitor) 40 mg HS PO Last administered on 11/01/16 21:46 ; Admin Dose 40 MG; Start 10/28/16 at 21:00 Metoprolol Tartrate (Lopressor) 25 mg BID PO Last administered on 11/02/16 09: 23; Admin Dose 25 MG; Start 10/28/16 at 09:00 Morphine Sulfate (morphine) 2 mg Q2H PRN IV FOR NON CARDIAC PAIN (4-10) Last administered on 10/28/16 15:13; Admin Dose 2 MG; Start 10/28/16 at 14:00 Ondansetron HCl (Zofran Inj) 4 mg Q4H PRN IV NAUSEA AND/OR VOMITING; Start at 14:00 Enoxaparin Sodium (Lovenox) 40 mg DAILY SC Last administered on 11/01/16 09:03 ; Admin Dose 40 MG; Start 10/29/16 at 09:00; Status Future Hold Acetaminophen/ Hydrocodone Bitart ([place] (5/325)) 1 tab Q4H PRN PO MODERATE PAIN LEVEL 4-6 Last administered on 10/29/16 00:09; Admin Dose 1 TAB; Start at 00:00 Acetaminophen/ Hydrocodone Bitart ([place] (5/325)) 2 tab Q4H PRN PO SEVERE PAIN LEVEL 7-10; Start 10/29/16 at 00:00 Lactobacillus Acidoph/Bulgaricus (Floranex) 1 tab BID PO Last administered on 21:47; Admin Dose 1 TAB; Start 10/30/16 at 13:00 Mupirocin (Bactroban) 1 applic BID TOP Last administered on 11/01/16 09:01; Admin Dose 1 APPLIC; Start 10/31/16 at 09:00; Stop 11/15/16 at 23:00 Vancomycin HCl (Vanco Iv Per Pharmacy) PER PHARMACY DOSING NOTE XX ; Start 10/31 at 01:00 Diagnostic Test (Pha) (Accu-Chek) 1 ea 02 XX Last administered on 11/01/16 02: 07; Admin Dose 1 EA; Start 11/01/16 at 02:00 Lamotrigine (Lamictal) 200 mg BID PO Last administered on 11/02/16 09:22; Admin Dose 200 MG; Start 10/31/16 at 14:30 Miscellaneous Information 1 ea NOTE XX ; Start 10/31/16 at 13:30 Glucose (Glutose) 15 gm Q15M PRN PO DECREASED GLUCOSE; Start 10/31/16 at 13:30 Glucose (Glutose) 22.5 gm Q15M PRN PO DECREASED GLUCOSE; Start 10/31/16 at 13: 30 Dextrose (D50w Syringe) 25 ml Q15M PRN IV DECREASED GLUCOSE; Start 10/31/16 at 13:30 Dextrose (D50w Syringe) 50 ml Q15M PRN IV DECREASED GLUCOSE; Start 10/31/16 at 13:30 Glucagon (Glucagen) 1 mg Q15M PRN IM DECREASED GLUCOSE; Start 10/31/16 at 13:30 Glucose (Glutose) 15 gm Q15M PRN BUCCAL DECREASED GLUCOSE; Start 10/31/16 at 13 :30 Insulin Glargine 10 unit 10 unit HS SC Last administered on 11/01/16 21:49; Admin Dose 10 UNIT; Start 10/31/16 at 23:00 Vancomycin HCl 250 ml @ 125 mls/hr Q12H IVPB Last administered on 11/02/16 02 :18; Admin Dose 125 MLS/HR; Start 11/02/16 at 02:00 Epinephrine 4 mg/ Dextrose 250 ml @ 0 mls/hr INTRA-OP IV ; Start 11/02/16 at 09: 30; Stop 11/02/16 at 16:10 Phenylephrine HCl 250 ml @ 0 mls/hr INTRA-OP IV ; Start 11/02/16 at 09:30; Stop 11/02/16 at 16:10 Insulin Human Regular/Sodium Chloride (Humulin R/NS) 100 ml @ 0 mls/hr INTRA-OP IV ; Start 11/02/16 at 09:30; Stop 11/02/16 at 16:10 CINDY PINA NP Nov 02, 2016 13:21
[2016-11-02] MEDS ORDERED: HEPARIN 10,000 UNITS/ML 1 ML INJ ONE (14:09)
[2016-11-02] MEDS ORDERED: PROTAMINE 250 MG INJ ONE (14:17)
[2016-11-02] MEDS ORDERED: FUROSEMIDE 20 MG INJ ONE (15:55)
[2016-11-02] MEDS ORDERED: ETOMIDATE 20 MG INJ ONE (17:23)
[2016-11-02] MEDS ORDERED: ROCURONIUM 50 MG INJ ONE (17:23)
[2016-11-02] MEDS ORDERED: POTASSIUM CHLORIDE 40 MEQ, CALCIUM CHLORIDE 10% 1 GM in DEXTROSE 5%-0.225% NACL 1,000 ML IV SCH (17:55)
--- NOTE | 2016-11-02 17:55 | OPR ---
Date/Time of Note Date/Time of Note DATE: 11/02/16 TIME: 17:54 Operative Report Preoperative Diagnosis CAD Postoperative Diagnosis CAD Operation Performed CABG Surgeon: JOAN WATTS MD Senior Physical Therapist: LUIS NAVA MD Anesthesia: general Complications: None Pt Condition Post Procedure: critical JOAN WATTS MD Nov 02, 2016 17:55
[2016-11-02 18:15] LABS: ADD SCAN DIFF NO
[2016-11-02] MEDS: morphine 2 MG INJ IV PRN ×2 (18:15→20:28)
[2016-11-02 18:30] LABS: BASOPHILS % 0.2 % (0.0-2.0); EOSINOPHILS # 0.2 10^3/ul (0.0-0.5); EOSINOPHILS % 1.5 % (0.0-7.0); HEMATOCRIT 28.7 % (42.0-52.0); HEMOGLOBIN 9.2 g/dl (14.0-18.0); LYMPHOCYTES # 1.2 10^3/ul (0.8-2.9); LYMPHOCYTES % 9.9 % (15.0-51.0); MEAN CORPUSCULAR HEMOGLOBIN 25.5 pg (29.0-33.0); MEAN CORPUSCULAR HGB CONC 32.1 g/dl (32.0-37.0); MEAN CORPUSCULAR VOLUME 79.5 fl (82.0-101.0); MEAN PLATELET VOLUME 8.6 fl (7.4-10.4); MONOCYTE # 0.8 10^3/ul (0.3-0.9); MONOCYTES % 6.3 % (0.0-11.0); NEUTROPHIL # 9.9 10^3/ul (1.6-7.5); NEUTROPHILS % 81.7 % (39.0-77.0); PLATELET COUNT 202 10^3/UL (140-415); POTASSIUM 4.4 mmol/L (3.5-5.1); RED BLOOD COUNT 3.61 10^6/ul (4.70-6.10); WHITE BLOOD COUNT 12.1 10^3/ul (4.8-10.8)
[2016-11-02] MEDS ORDERED: POTASSIUM CHLORIDE 50 ML IVPB PRN (18:30)
[2016-11-02] MEDS ORDERED: NITROGLYCERIN 50 MG/D5W (PMX) 250 ML IV SCH (18:30)
[2016-11-02] MEDS ORDERED: DOPamine-D5W 1.6 MG/ML 250 ML IV SCH (18:30)
[2016-11-02] MEDS ORDERED: MAGNESIUM SULFATE 1 GM/D5W 100 ML IVPB PRN (18:30)
[2016-11-02] MEDS ORDERED: HYDROmorphONE 1 MG/ML SYG IV PRN ×2 (18:30)
[2016-11-02] MEDS ORDERED: MILRINONE LACTATE 100 ML IV SCH (18:30)
[2016-11-02 18:32] LABS: CREATININE 1.04 mg/dl (0.61-1.24); INR 1.32; PROTIME 16.5 Sec (12.2-14.2); PT RATIO 1.3
[2016-11-02 18:33] LABS: CALCIUM 9.3 mg/dl (8.4-10.2); PARTIAL THROMBOPLASTIN TIME 34.9 Sec (25.0-35.0)
[2016-11-02 18:34] LABS: MAGNESIUM 2.9 mg/dl (1.7-2.5)
--- NOTE | 2016-11-02 18:46 | RADRPT ---
PROCEDURE: Chest 1 views. CLINICAL INDICATION: Status post open heart surgery. TECHNIQUE: AP views of the chest was obtained. COMPARISON: October 30, 2016 FINDINGS: The heart is large. Median sternotomy wires and surgical clips overlie the heart. Small amount of pn eumomediastinum is seen. Endotracheal tube has its tip approximately 1.9 cm above the nicolle. Media stinal drains overlie the heart. [place] catheter has its tip in the expected location of the skyler n pulmonary artery. Patchy left lower lobe infiltrates are identified. No pneumothorax as visualiz ed. No retained surgical instrumentation or sponges are identified. IMPRESSION: Cardiomegaly . Interval median sternotomy and heart surgery. Small amount of pneumomediastinum that is likely related to surgery. Endotracheal tube with its tip approximately 1.9 cm above the nicolle. Mediastinal drains overlying the heart. [place] catheter with its tip in the expected location of the main pulmonary artery. Patchy left lower lobe infiltrates. No visualized retained surgical instrumentation or sponges. RPTAT: AA .Reid Bonner MD, Date Time Electronically viewed and signed by .Reid Bonner MD, on 11/02/2016 18:46 .P/
--- NOTE | 2016-11-02 19:24 | OPR ---
DATE OF OPERATION: PREOPERATIVE DIAGNOSIS: Coronary artery disease. POSTOPERATIVE DIAGNOSIS: Coronary artery disease. OPERATION PERFORMED: Coronary artery bypass grafting x6. 1. CORTEZ to LAD proximal. 2. CORTEZ to LAD distal. 3. Saphenous vein graft to first obtuse marginal. 4. Saphenous vein graft to second obtuse marginal in a natural Y fashion. 5. Saphenous vein graft to third obtuse marginal. 6. Saphenous vein graft to the PDA in a natural Y fashion. 7. LAD endarterectomy. 8. Thymectomy. 9. Saphenous vein harvest from the left lower extremity, left thigh. SURGEON: Joan Fonseca MD COMMISSIONS SPECIALIST: ____ CONSENT: Risks, benefits, complications, alternative therapies explained to the patient and the fam santiago, consent obtained. OPERATIVE TECHNIQUE: The patient was placed in supine position, prepped and draped in usual sterile fashion. Sternal incision was made. Time-out was called. The sternal incision was made from the sternal notch down to xiphoid process. Saphenous vein was harvested from the left lower extremity u sing endoscopic technique. The sternum was opened. Left internal mammary artery was harvested usin g titanium clips and electrocautery. Thymectomy was done to gain access to the aorta. Pericardium opened, patient fully heparinized. Cannulation sutures, 3-0 Prolene with pledgets were applied to d istal ascending aorta, mid ascending aorta, body of the right atrium, right atrial appendage. After adequate documentation of ACT, aorta was cannulated followed by 2-stage venous cannula, antegrade a nd retrograde cardioplegia cannula. Heart was placed on cardiopulmonary bypass, cross-clamp applied , and the heart was arrested using anterior and retrograde cardioplegia given every 15 to 20 minutes supplemented by topical slush to the surface of the heart and cardioplegia through the vein grafts as they were being reconstructed. I used a natural Y to do 2 anastomoses, the first obtuse marginal branch of the circumflex and the second obtuse marginal branch of the circumflex. I used a natural Y again of the vein for the third obtuse marginal branch and the PDA. All these 4 anastomoses were done to 8 mm longitudinal arteriotomy, 7-0 Prolene in continuous suture technique in an end-to-side manner. The fifth and the sixth anastomoses were done to the LAD, providing proximal and distal fl ow to a 2 cm longitudinal arteriotomy after an extensive endarterectomy end-to-side fashion, 7-0 Pro [place] in continuous suture technique. The proximal 2 anastomoses were done on the same cross-clamp, 4.5 mm punches, end-to-side fashion, 6 -0 Prolene continuous suture technique. Head was placed in steep Trendelenburg position, cross-clam p removed. The grafts and the veins were de-aired. The patient came off cardiopulmonary bypass wit hout any difficulties. Protamine given, cannulas removed, sutures tied. Two ventricular pacing wir es, 2 chest tubes were placed, brought out through a lower stab wound, secured to skin using silk wade tures. No evidence of any bleeding was noted. The sternum was closed using the cable system x4. T he linea [place]ba and the deep tissues were irrigated using antibiotic solution and closed in 2 layers o f #1 Vicryl suture for the deep, 2-0 Vicryl suture for subcutaneous, Steri-Strips and Monocryl for t he skin with Steri-Strips. The leg was closed in similar fashion. The patient tolerated procedure well. Dictated By: JOAN CONNELL/JOSELINE Conf#: [id number] DID#: [id number]
[2016-11-02] MEDS: POTASSIUM CHLORIDE 40 MEQ in DEXTROSE 5%-0.225% NACL 1,000 ML IV SCH (19:26)
[2016-11-02] MEDS: ALBUMIN HUMAN 5% 250 ML IV PRN (19:27)
--- NOTE | 2016-11-02 19:28 | CONS ---
Date/Time of Note Date/Time of Note DATE: 11/02/16 TIME: 19:22 Assessment/Plan Assessment/Plan Chief Complaint/Hosp Course Assessment: Status post NSTEMI Coronary artery disease - status post CABG 11/02/2016 Acute on chronic diastolic heart failure - diuresed and thoracentesis at 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 Doing well post-operatively. Hemodynamically stable on low dose dopamine. Intubated in ICU. Detailed Summary Additional Comments Unable to obtain review of systems, patient is intubated. Exam/Review of Systems Vital Signs Vitals Vital Signs Date Time Temp Pulse Resp B/P Pulse Ox O2 Delivery O2 Flow Rate FiO2 11/02/16 18:45 114 20 100/50 100 11/02/16 18:25 70 11/02/16 17:44 98.4 Intake and Output 11/01/16 11/01/16 11/02/16 15:00 23:00 07:00 Intake Total 1210 ml 1050 ml Output Total 500 ml Balance 710 ml 1050 ml Exam Constitutional: other (intubated), No alert Psych: No nl mood/affect Head: atraumatic, normocephalic Eyes: nl conjunctiva, nl lids ENMT: intubated Neck: non-tender, supple, No jvd Respiratory: clear to auscultation, No crackles/rales Cardiovascular: regular rate and rhythm Gastrointestinal: non-tender, soft Extremities: No clubbing, No cyanosis, No edema Neurological: No nl mental status, No nl speech Results Result Diagram: 11/02/16 1810 11/02/16 1810 Results 24 hrs Laboratory Tests Test 11/01/16 21:45 11/02/16 07:12 11/02/16 08:01 11/02/16 17:34 Bedside Glucose 147 142 86 White Blood Count 5.5 # Red Blood Count 3.54 L Hemoglobin 8.6 L Hematocrit 28.3 L Mean Corpuscular Volume 79.9 L Mean Corpuscular Hemoglobin 24.3 L Mean Corpuscular Hemoglobin Concent 30.4 L Red Cell Distribution Width 14.9 H Platelet Count 227 Mean Platelet Volume 9.3 Neutrophils % 63.8 Lymphocytes % 21.7 Monocytes % 8.3 Eosinophils % 5.4 Basophils % 0.4 Nucleated Red Blood Cells % 0.0 Neutrophils # 3.5 Lymphocytes # 1.2 Monocytes # 0.5 Eosinophils # 0.3 Basophils # 0.0 Nucleated Red Blood Cells # 0.0 Prothrombin Time 13.0 Prothrombin Time Ratio 1.0 INR International Normalized Ratio 0.98 Activated Partial Thromboplast Time 33.5 Sodium Level 137 Potassium Level 4.2 Chloride Level 102 Carbon Dioxide Level 27 Anion Gap 12 Blood Urea Nitrogen 25 H Creatinine 0.84 Glucose Level 154 Calcium Level 8.6 Test 11/02/16 18:10 11/02/16 18:55 White Blood Count 12.1 #H Red Blood Count 3.61 L Hemoglobin 9.2 L Hematocrit 28.7 L Mean Corpuscular Volume 79.5 L Mean Corpuscular Hemoglobin 25.5 L Mean Corpuscular Hemoglobin Concent 32.1 Red Cell Distribution Width 15.0 H Platelet Count 202 Mean Platelet Volume 8.6 Neutrophils % 81.7 H Lymphocytes % 9.9 L Monocytes % 6.3 Eosinophils % 1.5 Basophils % 0.2 Nucleated Red Blood Cells % 0.0 Neutrophils # 9.9 H Lymphocytes # 1.2 Monocytes # 0.8 Eosinophils # 0.2 Basophils # 0.0 Nucleated Red Blood Cells # 0.0 Prothrombin Time Pending Prothrombin Time Ratio 1.3 INR International Normalized Ratio 1.32 Activated Partial Thromboplast Time 34.9 Sodium Level 139 Potassium Level 4.4 Chloride Level 103 Carbon Dioxide Level 26 Anion Gap 14 Blood Urea Nitrogen 24 H Creatinine 1.04 Glucose Level 100 # Calcium Level 9.3 Magnesium Level 2.9 H Bedside Glucose 112 Medications Medications Current Medications Lorazepam (Ativan) 0.5 mg Q6H PRN IV ANXIETY; Start 10/28/16 at 04:00 Acetaminophen (Tylenol Supp) 650 mg Q6H PRN [place] PAIN LEVEL 1-3 OR FEVER; Start 10/28/16 at 04:00 Morphine Sulfate (morphine) 2 mg Q4H PRN IV PAIN LEVEL 7-10 Last administered on 11/02/16 18:15; Admin Dose 2 MG; Start 10/28/16 at 04:00 Aspirin (Aspirin) 81 mg DAILY PO Last administered on 11/01/16 09:03; Admin Dose 81 MG; Start 10/28/16 at 09:00 Atorvastatin Calcium (Lipitor) 40 mg HS PO Last administered on 11/01/16 21:46 ; Admin Dose 40 MG; Start 10/28/16 at 21:00 Metoprolol Tartrate (Lopressor) 25 mg BID PO Last administered on 11/02/16 09: 23; Admin Dose 25 MG; Start 10/28/16 at 09:00 Morphine Sulfate (morphine) 2 mg Q2H PRN IV FOR NON CARDIAC PAIN (4-10) Last administered on 10/28/16 15:13; Admin Dose 2 MG; Start 10/28/16 at 14:00 Ondansetron HCl (Zofran Inj) 4 mg Q4H PRN IV NAUSEA AND/OR VOMITING; Start at 14:00 Enoxaparin Sodium (Lovenox) 40 mg DAILY SC Last administered on 11/01/16 09:03 ; Admin Dose 40 MG; Start 10/29/16 at 09:00; Status Future Hold Acetaminophen/ Hydrocodone Bitart ([place] (5/325)) 1 tab Q4H PRN PO MODERATE PAIN LEVEL 4-6 Last administered on 10/29/16 00:09; Admin Dose 1 TAB; Start at 00:00 Acetaminophen/ Hydrocodone Bitart ([place] (5/325)) 2 tab Q4H PRN PO SEVERE PAIN LEVEL 7-10; Start 10/29/16 at 00:00 Lactobacillus Acidoph/Bulgaricus (Floranex) 1 tab BID PO Last administered on 21:47; Admin Dose 1 TAB; Start 10/30/16 at 13:00 Mupirocin (Bactroban) 1 applic BID TOP Last administered on 11/01/16 09:01; Admin Dose 1 APPLIC; Start 10/31/16 at 09:00; Stop 11/15/16 at 23:00 Vancomycin HCl (Vanco Iv Per Pharmacy) PER PHARMACY DOSING NOTE XX ; Start 10/31 at 01:00 Diagnostic Test (Pha) (Accu-Chek) 1 ea 02 XX Last administered on 11/01/16 02: 07; Admin Dose 1 EA; Start 11/01/16 at 02:00 Lamotrigine (Lamictal) 200 mg BID PO Last administered on 11/02/16 09:22; Admin Dose 200 MG; Start 10/31/16 at 14:30 Miscellaneous Information 1 ea NOTE XX ; Start 10/31/16 at 13:30 Glucose (Glutose) 15 gm Q15M PRN PO DECREASED GLUCOSE; Start 10/31/16 at 13:30 Glucose (Glutose) 22.5 gm Q15M PRN PO DECREASED GLUCOSE; Start 10/31/16 at 13: 30 Dextrose (D50w Syringe) 25 ml Q15M PRN IV DECREASED GLUCOSE; Start 10/31/16 at 13:30 Dextrose (D50w Syringe) 50 ml Q15M PRN IV DECREASED GLUCOSE; Start 10/31/16 at 13:30 Glucagon (Glucagen) 1 mg Q15M PRN IM DECREASED GLUCOSE; Start 10/31/16 at 13:30 Glucose 15 gm 15 gm Q15M PRN BUCCAL DECREASED GLUCOSE; Start 10/31/16 at 13:30 Vancomycin HCl 250 ml @ 125 mls/hr Q12H IVPB Last administered on 11/02/16 02 :18; Admin Dose 125 MLS/HR; Start 11/02/16 at 02:00 Milrinone Lactate 100 ml @ 10.553 mls/ hr TITRATE IV Last administered on 11/02 18:18; Admin Dose 4.925 MLS/HR; Start 11/02/16 at 18:30 Dopamine HCl/ Dextrose 250 ml @ 7.035 mls/ hr TITRATE IV Last administered on 11/02/16 18:20; Admin Dose 3.518 MLS/HR; Start 11/02/16 at 18:30 Albumin Human 250 ml @ 500 mls/hr PRN PRN IV CVP< 8, OR SBP<90; Start at 18:30 Hydromorphone HCl (Dilaudid) 0.2 mg Q1H PRN IV PAIN LEVEL 1-5; Start 11/02/16 at 18:30 Hydromorphone HCl 0.4 mg 0.4 mg Q1H PRN IV PAIN LEVEL 6-10; Start 11/02/16 at 18:30 Magnesium Sulfate/ Dextrose 100 ml @ 100 mls/hr PRN PRN IVPB PENDING LAB VALUE ; Start 11/02/16 at 18:30 Potassium Chloride/Dextrose/ Sodium Chloride (KCl/D5-1/4ns) 1,020 ml @ 60 mls/ hr Q17H IV ; Start 11/02/16 at 20:00 Miscellaneous Information (* Miscellaneous Pharmacy Order) Discontinue all previ... PROTOCOL ONCE XX ; Start 11/02/16 at 19:30; Stop 11/02/16 at 19:31; Status UNV Diagnostic Test (Pha) (Accu-Chek) 1 ea Q1H XX ; Start 11/02/16 at 19:30; Status UNV Dextrose (D50w Syringe) 25 ml Q15M PRN IV Till BS 80 mg/dL or above x2; Start 11/02/16 at 19:30; Status UNV Dextrose (D50w Syringe) 50 ml Q15M PRN IV Till BS 80 mg/dL or above x2; Start 11/02/16 at 19:30; Status UNV NANCIE HUGHES MD Nov 02, 2016 19:28
[2016-11-02] MEDS ORDERED: DEXTROSE 50% 50 ML SYRINGE IV PRN ×2 (19:30)
[2016-11-02] MEDS: INSULIN REGULAR, HUMAN 100 UNIT in SOD CHLORIDE 0.9% 99 ML IV SCH ×2 (19:53)
[2016-11-02 19:54] LABS: AADO2 Arterial 196.2 mmHg (7.0-24.0); Arterial Base Excess -3.1 mmol/L (-3.0-3); Arterial COHb 0.3 % (0.0-3.0); Arterial HCO3 22.2 mmol/L (22.0-26.0); Arterial MetHb 0.5 % (0.0-1.5); Arterial Total Hemglobin 10.8 g/dl (12.0-18.0); MODE VENT-AC
[2016-11-02] MEDS: ATORVASTATIN 40 MG TAB PO SCH (20:56)
[2016-11-02] MEDS: ACETAMINOPHEN 650 MG SUPP PR PRN (22:15)
--- NOTE | 2016-11-02 22:22 | CONS ---
Date/Time of Note Date/Time of Note DATE: 11/02/16 TIME: 22:21 Assessment/Plan Assessment/Plan Chief Complaint/Hosp Course -Anemia (Stable hgb 9.0 S/P EGD ([facility]) Esophagitis POST BMBX- AT SOH ASPIRATE - NEG FINAL PATH - N MONITOR BLOOD COUNT CLOSELY NSTEMI Multivessel CAD, POST CABG History of seizure History of alcoholism History of C difficile colitis Diabetes mellitus Problems: Consultation Date/Type/Reason Admit Date/Time Oct 27, 2016 at 22:32 Initial Consult Date 10/28/16 Type of Consultation: hemeonc 24 HR Interval Summary Free Text/Dictation course reviewed with nurse * patient seen and examined * no hematochezia,nor hematemesis * S/P CABG (1st pod) * latest hemoglobin 9 Exam/Review of Systems Vital Signs Vitals Vital Signs Date Time Temp Pulse Resp B/P Pulse Ox O2 Delivery O2 Flow Rate FiO2 11/02/16 21:45 100 16 97/54 98 11/02/16 21:10 50 11/02/16 21:00 101.1 Intake and Output 11/01/16 11/01/16 11/02/16 15:00 23:00 07:00 Intake Total 1210 ml 1050 ml Output Total 500 ml Balance 710 ml 1050 ml Exam Exam Constitutional: alert Neck: supple Respiratory: clear to auscultation, diminished breath sounds, No crackles/rales Cardiovascular: nl pulses, other (dressing intact midsternum), regular rate and rhythm Gastrointestinal: soft Extremities: normal pulses Results Result Diagram: 11/02/16 1810 11/02/16 1810 Results 24 hrs Laboratory Tests Test 11/02/16 07:12 11/02/16 08:01 11/02/16 17:34 11/02/16 17:55 White Blood Count 5.5 # Red Blood Count 3.54 L Hemoglobin 8.6 L Hematocrit 28.3 L Mean Corpuscular Volume 79.9 L Mean Corpuscular Hemoglobin 24.3 L Mean Corpuscular Hemoglobin Concent 30.4 L Red Cell Distribution Width 14.9 H Platelet Count 227 Mean Platelet Volume 9.3 Neutrophils % 63.8 Lymphocytes % 21.7 Monocytes % 8.3 Eosinophils % 5.4 Basophils % 0.4 Nucleated Red Blood Cells % 0.0 Neutrophils # 3.5 Lymphocytes # 1.2 Monocytes # 0.5 Eosinophils # 0.3 Basophils # 0.0 Nucleated Red Blood Cells # 0.0 Prothrombin Time 13.0 Prothrombin Time Ratio 1.0 INR International Normalized Ratio 0.98 Activated Partial Thromboplast Time 33.5 Sodium Level 137 Potassium Level 4.2 Chloride Level 102 Carbon Dioxide Level 27 Anion Gap 12 Blood Urea Nitrogen 25 H Creatinine 0.84 Glucose Level 154 Calcium Level 8.6 Bedside Glucose 142 86 Blood Gas Specimen Source Blood arterial Arterial Blood Date Drawn 11/02/2016 7:42:02 PM Arterial Blood pH (Temp corrected) 7.355 Arterial Blood pCO2 (Temp correct) 40.7 Arterial Blood pO2 (Temp corrected) 114.5 H Arterial Blood HCO3 22.2 Arterial Blood Base Excess -3.1 L Arterial Blood Oxygen Saturation 97.8 Cam Test N/A Arterial Blood Gas Puncture Site A-Line Arterial Blood Carboxyhemoglobin 0.3 Arterial Blood Methemoglobin 0.5 Blood Gas A-a O2 Differential 196.2 H Oxyhemoglobin Percent 97.0 Total Hemoglobin 10.8 L Blood Gas Temperature 37.0 Blood Gas Respiration Rate 14.0 Blood Gas Actual Respiration Rate 14 Blood Gas Modality VENT-AC FiO2 50.0 Blood Gas Tidal Volume 550.0 Blood Gas Low PEEP Setting 5.0 Blood Gas Inspiratory Pressure 23.0 Blood Gas Notified Whom ISAÍASD Blood Gas Notified Time 11/02/2016 7:54:50 PM Test 11/02/16 18:10 11/02/16 18:55 11/02/16 19:53 11/02/16 20:41 White Blood Count 12.1 #H Red Blood Count 3.61 L Hemoglobin 9.2 L Hematocrit 28.7 L Mean Corpuscular Volume 79.5 L Mean Corpuscular Hemoglobin 25.5 L Mean Corpuscular Hemoglobin Concent 32.1 Red Cell Distribution Width 15.0 H Platelet Count 202 Mean Platelet Volume 8.6 Neutrophils % 81.7 H Lymphocytes % 9.9 L Monocytes % 6.3 Eosinophils % 1.5 Basophils % 0.2 Nucleated Red Blood Cells % 0.0 Neutrophils # 9.9 H Lymphocytes # 1.2 Monocytes # 0.8 Eosinophils # 0.2 Basophils # 0.0 Nucleated Red Blood Cells # 0.0 Prothrombin Time 16.5 #H Prothrombin Time Ratio 1.3 INR International Normalized Ratio 1.32 Activated Partial Thromboplast Time 34.9 Sodium Level 139 Potassium Level 4.4 Chloride Level 103 Carbon Dioxide Level 26 Anion Gap 14 Blood Urea Nitrogen 24 H Creatinine 1.04 Glucose Level 100 # Calcium Level 9.3 Magnesium Level 2.9 H Bedside Glucose 112 136 164 Test 11/02/16 21:44 Bedside Glucose 151 Medications Medications Current Medications Lorazepam (Ativan) 0.5 mg Q6H PRN IV ANXIETY; Start 10/28/16 at 04:00 Acetaminophen (Tylenol Supp) 650 mg Q6H PRN [place] PAIN LEVEL 1-3 OR FEVER Last administered on 11/02/16 22:15; Admin Dose 650 MG; Start 10/28/16 at 04:00 Morphine Sulfate (morphine) 2 mg Q4H PRN IV PAIN LEVEL 7-10 Last administered on 11/02/16 18:15; Admin Dose 2 MG; Start 10/28/16 at 04:00 Aspirin (Aspirin) 81 mg DAILY PO Last administered on 11/01/16 09:03; Admin Dose 81 MG; Start 10/28/16 at 09:00 Atorvastatin Calcium (Lipitor) 40 mg HS PO Last administered on 11/01/16 21:46 ; Admin Dose 40 MG; Start 10/28/16 at 21:00 Metoprolol Tartrate (Lopressor) 25 mg BID PO Last administered on 11/02/16 09: 23; Admin Dose 25 MG; Start 10/28/16 at 09:00 Morphine Sulfate (morphine) 2 mg Q2H PRN IV FOR NON CARDIAC PAIN (4-10) Last administered on 11/02/16 20:28; Admin Dose 2 MG; Start 10/28/16 at 14:00 Ondansetron HCl (Zofran Inj) 4 mg Q4H PRN IV NAUSEA AND/OR VOMITING Last administered on 11/02/16 20:47; Admin Dose 4 MG; Start 10/28/16 at 14:00 Enoxaparin Sodium (Lovenox) 40 mg DAILY SC Last administered on 11/01/16 09:03 ; Admin Dose 40 MG; Start 10/29/16 at 09:00; Status Future Hold Acetaminophen/ Hydrocodone Bitart ([place] (5/325)) 1 tab Q4H PRN PO MODERATE PAIN LEVEL 4-6 Last administered on 10/29/16 00:09; Admin Dose 1 TAB; Start at 00:00 Acetaminophen/ Hydrocodone Bitart ([place] (5/325)) 2 tab Q4H PRN PO SEVERE PAIN LEVEL 7-10; Start 10/29/16 at 00:00 Lactobacillus Acidoph/Bulgaricus (Floranex) 1 tab BID PO Last administered on 21:47; Admin Dose 1 TAB; Start 10/30/16 at 13:00 Mupirocin (Bactroban) 1 applic BID TOP Last administered on 11/02/16 22:15; Admin Dose 1 APPLIC; Start 10/31/16 at 09:00; Stop 11/15/16 at 23:00 Vancomycin HCl (Vanco Iv Per Pharmacy) PER PHARMACY DOSING NOTE XX ; Start 10/31 at 01:00 Lamotrigine (Lamictal) 200 mg BID PO Last administered on 11/02/16 09:22; Admin Dose 200 MG; Start 10/31/16 at 14:30 Miscellaneous Information 1 ea NOTE XX ; Start 10/31/16 at 13:30 Glucose (Glutose) 15 gm Q15M PRN PO DECREASED GLUCOSE; Start 10/31/16 at 13:30 Glucose (Glutose) 22.5 gm Q15M PRN PO DECREASED GLUCOSE; Start 10/31/16 at 13: 30 Dextrose (D50w Syringe) 25 ml Q15M PRN IV DECREASED GLUCOSE; Start 10/31/16 at 13:30 Dextrose (D50w Syringe) 50 ml Q15M PRN IV DECREASED GLUCOSE; Start 10/31/16 at 13:30 Glucagon (Glucagen) 1 mg Q15M PRN IM DECREASED GLUCOSE; Start 10/31/16 at 13:30 Glucose 15 gm 15 gm Q15M PRN BUCCAL DECREASED GLUCOSE; Start 10/31/16 at 13:30 Vancomycin HCl 250 ml @ 125 mls/hr Q12H IVPB Last administered on 11/02/16 02 :18; Admin Dose 125 MLS/HR; Start 11/02/16 at 02:00 Milrinone Lactate 100 ml @ 10.553 mls/ hr TITRATE IV Last administered on 11/02 18:18; Admin Dose 4.925 MLS/HR; Start 11/02/16 at 18:30 Dopamine HCl/ Dextrose 250 ml @ 7.035 mls/ hr TITRATE IV Last administered on 11/02/16 18:20; Admin Dose 3.518 MLS/HR; Start 11/02/16 at 18:30 Albumin Human 250 ml @ 500 mls/hr PRN PRN IV CVP< 8, OR SBP<90 Last administered on 11/02/16 19:27; Admin Dose 500 MLS/HR; Start 11/02/16 at 18:30 Hydromorphone HCl (Dilaudid) 0.2 mg Q1H PRN IV PAIN LEVEL 1-5; Start 11/02/16 at 18:30 Hydromorphone HCl 0.4 mg 0.4 mg Q1H PRN IV PAIN LEVEL 6-10; Start 11/02/16 at 18:30 Magnesium Sulfate/ Dextrose 100 ml @ 100 mls/hr PRN PRN IVPB PENDING LAB VALUE ; Start 11/02/16 at 18:30 Potassium Chloride/Dextrose/ Sodium Chloride (KCl/D5-1/4ns) 1,020 ml @ 60 mls/ hr Q17H IV Last administered on 11/02/16 19:26; Admin Dose 60 MLS/HR; Start at 20:00 Diagnostic Test (Pha) (Accu-Chek) 1 ea Q1H XX Last administered on 11/02/16 21 :46; Admin Dose 1 EA; Start 11/02/16 at 19:30 Dextrose (D50w Syringe) 25 ml Q15M PRN IV Till BS 80 mg/dL or above x2; Start 11/02/16 at 19:30 Dextrose (D50w Syringe) 50 ml Q15M PRN IV Till BS 80 mg/dL or above x2; Start 11/02/16 at 19:30 BETO PADILLA MD Nov 02, 2016 22:22
[2016-11-03] VITALS (78 sets, daily range): BP systolic 83–130; BP diastolic 45–73; PULSE 75–95; RESP 16–31; TEMP 99.3–100.9
[2016-11-03] MEDS ORDERED: ONDANSETRON 4 MG INJ IV PRN
[2016-11-03 00:15] LABS: Arterial Base Excess -1.1 mmol/L (-3.0-3); Arterial COHb 0.3 % (0.0-3.0); Arterial Fraction of Oxyhgb 96.9 % (93.0-99.0); Arterial HCO3 23.5 mmol/L (22.0-26.0); Arterial MetHb 0.3 % (0.0-1.5); Arterial Total Hemglobin 9.6 g/dl (12.0-18.0); Blood Gas PS 5; MODE VENT-CPAP+PS
[2016-11-03] MEDS: ONDANSETRON INJ 8 MG in SOD CHLORIDE 0.9% 50 ML IV PRN ×2 (00:30→11:05)
[2016-11-03] MEDS: ACCU-CHEK XX SCH ×23 (00:46→22:47)
[2016-11-03] MEDS: VANCOMYCIN 1 GM in NS 250 ML IVPB SCH ×2 (01:58→13:55)
[2016-11-03] MEDS: ALBUMIN HUMAN 5% 250 ML IV PRN (04:15)
[2016-11-03] MEDS: morphine 4 MG/ML VIAL IV PRN ×2 (04:31→08:35)
[2016-11-03 04:53] LABS: ADD SCAN DIFF NO
[2016-11-03 05:00] LABS: ABNORMAL IP MESSAGE 1; BASOPHILS % 0.1 % (0.0-2.0); EOSINOPHILS % 0.2 % (0.0-7.0); HEMATOCRIT 29.2 % (42.0-52.0); LYMPHOCYTES # 0.4 10^3/ul (0.8-2.9); LYMPHOCYTES % 4.6 % (15.0-51.0); MEAN CORPUSCULAR HEMOGLOBIN 25.4 pg (29.0-33.0); MEAN CORPUSCULAR HGB CONC 30.8 g/dl (32.0-37.0); MEAN CORPUSCULAR VOLUME 82.3 fl (82.0-101.0); MEAN PLATELET VOLUME 9.2 fl (7.4-10.4); MONOCYTE # 0.6 10^3/ul (0.3-0.9); MONOCYTES % 7.1 % (0.0-11.0); NEUTROPHIL # 7.8 10^3/ul (1.6-7.5); NEUTROPHILS % 87.8 % (39.0-77.0); PLATELET COUNT 187 10^3/UL (140-415); RED BLOOD COUNT 3.55 10^6/ul (4.70-6.10); RED CELL DISTRIBUTION WIDTH 15.1 % (11.5-14.5); WHITE BLOOD COUNT 8.9 10^3/ul (4.8-10.8)
[2016-11-03 05:11] LABS: INR 1.16; PROTIME 14.8 Sec (12.2-14.2); PT RATIO 1.2
[2016-11-03 05:15] LABS: POTASSIUM 4.8 mmol/L (3.5-5.1)
[2016-11-03 05:17] LABS: CREATININE 1.2 mg/dl (0.61-1.24)
[2016-11-03 05:18] LABS: CALCIUM 8.9 mg/dl (8.4-10.2); MAGNESIUM 2.6 mg/dl (1.7-2.5)
[2016-11-03] MEDS: ASPIRIN 81 MG TAB PO SCH (08:25)
[2016-11-03] MEDS: LACTOBACILLUS CHEW TAB PO SCH ×2 (08:25→20:55)
[2016-11-03] MEDS: LAMOTRIGINE 100 MG TAB PO SCH ×2 (08:25→20:55)
[2016-11-03] MEDS: METOPROLOL 25 MG TAB PO SCH ×2 (08:26→20:55)
[2016-11-03] MEDS: MUPIROCIN 2% 22 GM OINT TOP SCH ×2 (08:26→20:56)
--- NOTE | 2016-11-03 09:56 | PN ---
Date/Time of Note Date/Time of Note DATE: 11/03/16 TIME: 09:55 Assessment/Plan Lines/Catheters IV Catheter Type (from Nrsg): A Line Guerra in Place (from Nrsg): Yes Assessment/Plan Chief Complaint/Hosp Course MPRESSION: 1. Coronary artery disease. 2. Status post myocardial infarction. 3. Anemia. 4. Gastrointestinal bleeding. 5. Seizure disorder. 6. Peripheral vascular disease status post foot amputation. SP CABG will continue CT sxn Pulm toilet Problems: Subjective 24 Hr Interval Summary Constitutional: improved Pain Control: mild Exam/Review of Systems Vital Signs Vitals Vital Signs Date Time Temp Pulse Resp B/P Pulse Ox O2 Delivery O2 Flow Rate FiO2 11/03/16 09:00 99.3 81 20 96/50 100 11/03/16 08:45 Nasal Cannula 5.0 11/03/16 00:00 40 Intake and Output 11/02/16 11/02/16 11/03/16 14:59 22:59 06:59 Intake Total 3825.443 ml 1075.0 ml Output Total 2788 ml 923 ml Balance 1037.443 ml 152.0 ml Exam ENMT: mucosa pink and moist, nl external ears & nose, nl lips & teeth, nl nasal mucosa & septum Neck: non-tender, supple Respiratory: clear to auscultation, normal air movement Cardiovascular: nl pulses, regular rate and rhythm Results Result Diagram: 11/03/16 0345 11/03/16 0345 JOAN WATTS MD Nov 03, 2016 09:56
[2016-11-03] MEDS: POTASSIUM CHLORIDE 40 MEQ in DEXTROSE 5%-0.225% NACL 1,000 ML IV SCH ×2 (11:05→12:53)
--- NOTE | 2016-11-03 12:09 | PN ---
Date/Time of Note Date/Time of Note DATE: 11/03/16 TIME: 12:02 Assessment/Plan VTE Prophylaxis VTE Prophylaxis Intervention: SCD's Lines/Catheters IV Catheter Type (from Nrsg): A Line Urinary Cath still in place: Yes Reason Cath still needed: urinary retention Assessment/Plan Assessment/Plan Assessment S/P CABG 11/02/2016 -Anemia (Stable hgb 9) S/P EGD ([facility]) Esophagitis NSTEMI Multivessel CAD History of seizure History of alcoholism History of C difficile colitis Diabetes mellitus Plan - continue present management - proton pump inhibitor -will monitor for signs or symptoms of hematemesis nor hematochezia - will follow up as needed Subjective 24 Hr Interval Summary Free Text/Dictation * course reviewed with nurse * patient seen and examined * no hematochezia,nor hematemesis * S/P CABG (1st pod) * latest hemoglobin 9 Exam/Review of Systems Vital Signs Vitals Vital Signs Date Time Temp Pulse Resp B/P Pulse Ox O2 Delivery O2 Flow Rate FiO2 11/03/16 11:30 83 19 97/56 98 Nasal Cannula 5.0 11/03/16 11:00 99.2 11/03/16 00:00 40 Intake and Output 11/02/16 11/02/16 11/03/16 15:00 23:00 07:00 Intake Total 3888.943 ml 1073.3 ml Output Total 2874 ml 880 ml Balance 1014.943 ml 193.3 ml Exam Constitutional: alert Neck: supple Respiratory: clear to auscultation, diminished breath sounds, No crackles/rales Cardiovascular: nl pulses, other (dressing intact midsternum), regular rate and rhythm Gastrointestinal: soft Extremities: normal pulses Results Result Diagram: 11/03/16 0345 11/03/16 0345 Results 24 hrs Laboratory Tests Test 11/02/16 17:34 11/02/16 17:55 11/02/16 18:10 11/02/16 18:55 Bedside Glucose 86 112 Blood Gas Specimen Source Blood arterial Arterial Blood Date Drawn 11/02/2016 7:42:02 PM Arterial Blood pH (Temp corrected) 7.355 Arterial Blood pCO2 (Temp correct) 40.7 Arterial Blood pO2 (Temp corrected) 114.5 H Arterial Blood HCO3 22.2 Arterial Blood Base Excess -3.1 L Arterial Blood Oxygen Saturation 97.8 Cam Test N/A Arterial Blood Gas Puncture Site A-Line Arterial Blood Carboxyhemoglobin 0.3 Arterial Blood Methemoglobin 0.5 Blood Gas A-a O2 Differential 196.2 H Oxyhemoglobin Percent 97.0 Total Hemoglobin 10.8 L Blood Gas Temperature 37.0 Blood Gas Respiration Rate 14.0 Blood Gas Actual Respiration Rate 14 Blood Gas Modality VENT-AC FiO2 50.0 Blood Gas Tidal Volume 550.0 Blood Gas Low PEEP Setting 5.0 Blood Gas Inspiratory Pressure 23.0 Blood Gas Notified Whom ISAÍASD Blood Gas Notified Time 11/02/2016 7:54:50 PM White Blood Count 12.1 #H Red Blood Count 3.61 L Hemoglobin 9.2 L Hematocrit 28.7 L Mean Corpuscular Volume 79.5 L Mean Corpuscular Hemoglobin 25.5 L Mean Corpuscular Hemoglobin Concent 32.1 Red Cell Distribution Width 15.0 H Platelet Count 202 Mean Platelet Volume 8.6 Neutrophils % 81.7 H Lymphocytes % 9.9 L Monocytes % 6.3 Eosinophils % 1.5 Basophils % 0.2 Nucleated Red Blood Cells % 0.0 Neutrophils # 9.9 H Lymphocytes # 1.2 Monocytes # 0.8 Eosinophils # 0.2 Basophils # 0.0 Nucleated Red Blood Cells # 0.0 Prothrombin Time 16.5 #H Prothrombin Time Ratio 1.3 INR International Normalized Ratio 1.32 Activated Partial Thromboplast Time 34.9 Sodium Level 139 Potassium Level 4.4 Chloride Level 103 Carbon Dioxide Level 26 Anion Gap 14 Blood Urea Nitrogen 24 H Creatinine 1.04 Glucose Level 100 # Calcium Level 9.3 Magnesium Level 2.9 H Test 11/02/16 19:53 11/02/16 20:41 11/02/16 21:44 11/02/16 22:39 Bedside Glucose 136 164 151 143 Test 11/03/16 00:04 11/03/16 00:45 11/03/16 02:34 11/03/16 03:45 Blood Gas Specimen Source Blood arterial Arterial Blood Date Drawn 11/03/2016 12:04:45 AM Arterial Blood pH (Temp corrected) 7.400 Arterial Blood pCO2 (Temp correct) 38.8 Arterial Blood pO2 (Temp corrected) 110.6 H Arterial Blood HCO3 23.5 Arterial Blood Base Excess -1.1 Arterial Blood Oxygen Saturation 97.5 Cam Test N/A Arterial Blood Gas Puncture Site A-Line Arterial Blood Carboxyhemoglobin 0.3 Arterial Blood Methemoglobin 0.3 Blood Gas A-a O2 Differential 130.0 H Oxyhemoglobin Percent 96.9 Total Hemoglobin 9.6 L Blood Gas Temperature 37.0 Blood Gas Actual Respiration Rate 21 Blood Gas Modality VENT-CPAP+PS FiO2 40.0 Blood Gas Low PEEP Setting 5.0 Blood Gas Pressure Support 5 Blood Gas Notified Whom KARLA Blood Gas Notified Time 11/03/2016 12:15:41 AM Bedside Glucose 146 148 White Blood Count 8.9 # Red Blood Count 3.55 L Hemoglobin 9.0 L Hematocrit 29.2 L Mean Corpuscular Volume 82.3 Mean Corpuscular Hemoglobin 25.4 L Mean Corpuscular Hemoglobin Concent 30.8 L Red Cell Distribution Width 15.1 H Platelet Count 187 Mean Platelet Volume 9.2 Neutrophils % 87.8 H Lymphocytes % 4.6 L Monocytes % 7.1 Eosinophils % 0.2 Basophils % 0.1 Nucleated Red Blood Cells % 0.0 Neutrophils # 7.8 H Lymphocytes # 0.4 L Monocytes # 0.6 Eosinophils # 0.0 Basophils # 0.0 Nucleated Red Blood Cells # 0.0 Prothrombin Time 14.8 H Prothrombin Time Ratio 1.2 INR International Normalized Ratio 1.16 Activated Partial Thromboplast Time 34.0 Sodium Level 142 Potassium Level 4.8 Chloride Level 106 Carbon Dioxide Level 28 Anion Gap 13 Blood Urea Nitrogen 28 H Creatinine 1.20 Glucose Level 156 Calcium Level 8.9 Magnesium Level 2.6 H Test 11/03/16 04:29 11/03/16 06:35 11/03/16 08:24 11/03/16 09:32 Bedside Glucose 160 145 142 142 Test 11/03/16 10:24 11/03/16 11:24 Bedside Glucose 153 166 Medications Medications Current Medications Lorazepam (Ativan) 0.5 mg Q6H PRN IV ANXIETY; Start 10/28/16 at 04:00 Acetaminophen (Tylenol Supp) 650 mg Q6H PRN [place] PAIN LEVEL 1-3 OR FEVER Last administered on 11/02/16 22:15; Admin Dose 650 MG; Start 10/28/16 at 04:00 Aspirin (Aspirin) 81 mg DAILY PO Last administered on 11/03/16 08:25; Admin Dose 81 MG; Start 10/28/16 at 09:00 Atorvastatin Calcium (Lipitor) 40 mg HS PO Last administered on 11/01/16 21:46 ; Admin Dose 40 MG; Start 10/28/16 at 21:00 Metoprolol Tartrate (Lopressor) 25 mg BID PO Last administered on 11/02/16 09: 23; Admin Dose 25 MG; Start 10/28/16 at 09:00 Morphine Sulfate (morphine) 2 mg Q2H PRN IV FOR NON CARDIAC PAIN (4-10) Last administered on 11/02/16 20:28; Admin Dose 2 MG; Start 10/28/16 at 14:00 Enoxaparin Sodium (Lovenox) 40 mg DAILY SC Last administered on 11/01/16 09:03 ; Admin Dose 40 MG; Start 10/29/16 at 09:00; Status Future Hold Acetaminophen/ Hydrocodone Bitart ([place] (5/325)) 1 tab Q4H PRN PO MODERATE PAIN LEVEL 4-6 Last administered on 10/29/16 00:09; Admin Dose 1 TAB; Start at 00:00 Acetaminophen/ Hydrocodone Bitart ([place] (5/325)) 2 tab Q4H PRN PO SEVERE PAIN LEVEL 7-10; Start 10/29/16 at 00:00 Lactobacillus Acidoph/Bulgaricus (Floranex) 1 tab BID PO Last administered on 08:25; Admin Dose 1 TAB; Start 10/30/16 at 13:00 Mupirocin (Bactroban) 1 applic BID TOP Last administered on 11/03/16 08:26; Admin Dose 1 APPLIC; Start 10/31/16 at 09:00; Stop 11/15/16 at 23:00 Vancomycin HCl (Vanco Iv Per Pharmacy) PER PHARMACY DOSING NOTE XX ; Start 10/31 at 01:00 Lamotrigine (Lamictal) 200 mg BID PO Last administered on 11/03/16 08:25; Admin Dose 200 MG; Start 10/31/16 at 14:30 Miscellaneous Information 1 ea NOTE XX ; Start 10/31/16 at 13:30 Glucose (Glutose) 15 gm Q15M PRN PO DECREASED GLUCOSE; Start 10/31/16 at 13:30 Glucose (Glutose) 22.5 gm Q15M PRN PO DECREASED GLUCOSE; Start 10/31/16 at 13: 30 Dextrose (D50w Syringe) 25 ml Q15M PRN IV DECREASED GLUCOSE; Start 10/31/16 at 13:30 Dextrose (D50w Syringe) 50 ml Q15M PRN IV DECREASED GLUCOSE; Start 10/31/16 at 13:30 Glucagon (Glucagen) 1 mg Q15M PRN IM DECREASED GLUCOSE; Start 10/31/16 at 13:30 Glucose 15 gm 15 gm Q15M PRN BUCCAL DECREASED GLUCOSE; Start 10/31/16 at 13:30 Vancomycin HCl 250 ml @ 125 mls/hr Q12H IVPB Last administered on 11/03/16 01 :58; Admin Dose 125 MLS/HR; Start 11/02/16 at 02:00 Milrinone Lactate 100 ml @ 10.553 mls/ hr TITRATE IV Last administered on 11/02 18:18; Admin Dose 4.925 MLS/HR; Start 11/02/16 at 18:30 Dopamine HCl/ Dextrose 250 ml @ 7.035 mls/ hr TITRATE IV Last administered on 11/02/16 18:20; Admin Dose 3.518 MLS/HR; Start 11/02/16 at 18:30 Albumin Human 250 ml @ 500 mls/hr PRN PRN IV CVP< 8, OR SBP<90 Last administered on 11/03/16 04:15; Admin Dose 500 MLS/HR; Start 11/02/16 at 18:30 Hydromorphone HCl (Dilaudid) 0.2 mg Q1H PRN IV PAIN LEVEL 1-5; Start 11/02/16 at 18:30 Hydromorphone HCl 0.4 mg 0.4 mg Q1H PRN IV PAIN LEVEL 6-10; Start 11/02/16 at 18:30 Magnesium Sulfate/ Dextrose 100 ml @ 100 mls/hr PRN PRN IVPB PENDING LAB VALUE ; Start 11/02/16 at 18:30 Potassium Chloride/Dextrose/ Sodium Chloride (KCl/D5-1/4ns) 1,020 ml @ 60 mls/ hr Q17H IV Last administered on 11/03/16 11:05; Admin Dose 60 MLS/HR; Start at 20:00 Diagnostic Test (Pha) (Accu-Chek) 1 ea Q1H XX Last administered on 11/03/16 11 :25; Admin Dose 1 EA; Start 11/02/16 at 19:30 Dextrose (D50w Syringe) 25 ml Q15M PRN IV Till BS 80 mg/dL or above x2; Start 11/02/16 at 19:30 Dextrose (D50w Syringe) 50 ml Q15M PRN IV Till BS 80 mg/dL or above x2; Start 11/02/16 at 19:30 Morphine Sulfate 3 mg 3 mg Q4H PRN IV PAIN LEVEL 7-10 Last administered on 11/03 08:35; Admin Dose 3 MG; Start 11/02/16 at 22:59 Ondansetron HCl/ Sodium Chloride (Zofran Inj/NS) 54 ml @ 216 mls/hr Q6H PRN IV NAUSEA AND/OR VOMITING Last administered on 11/03/16 11:05; Admin Dose 216 MLS/HR; Start 11/02/16 at 23:30 DIANA BELL MD Nov 03, 2016 12:09
--- NOTE | 2016-11-03 12:52 | PN ---
DATE: 11/03/2016 SUBJECTIVE: Patient is awake, weak, lying comfortably in bed. T-max last night was 101.1. T-current 99.2, pulse 83, respirations 19, blood pressure 97/ 56, saturation 98 on 5 liters. INDWELLINGS: Right IJ [place] with introducer, chest tube, Guerra catheter. LABORATORY DATA: WBC 8.9, H and H 9 and 29.2. MICROBIOLOGY: Platelets 187, neutrophils 87.8. ANTIMICROBIALS: BUN 28, creatinine 1.20. ANTIMICROBIALS: The patient is on IV vancomycin. DIAGNOSTICS: Chest x-ray yesterday revealed patchy left lower lobe infiltrates. PHYSICAL EXAMINATION: GENERAL: This is a fragile, well-developed elderly man who is awake and follows commands. HEENT: Head normocephalic and atraumatic. Sclerae anicteric. Buccal mucosa dry. NECK: Supple. CHEST: Rise symmetrical. Breath sounds diminished to bases. HEART: S1, S2. ABDOMEN: Soft. Bowel tones hypoactive. EXTREMITIES: Without cyanosis. ASSESSMENT: 1. Healthcare-associated pneumonia. 2. Fevers secondary to above. 3. Coronary artery disease status post coronary artery bypass graft yesterday. 4. Methicillin-resistant Staphylococcus aureus nares colonization. 5. Hypertension. 6. Diabetes. 7. Seizure disorder, on Lamictal. PLAN: The patient remains stable postoperatively, still on dopamine drip, but was able to get out of bed earlier today. He spiked a fever. His chest x-ray yesterday revealed left lower lobe infiltrates. We are going to add meropenem to the regimen. Continue vancomycin, Bactroban to nares and Hibiclens baths daily. Encourage incentive spirometry use. We will panculture patient if he spikes a fever. Dictated By: CINDY PINA [employer] CALL[employer] NURSE PRACTITIONER for LISSETH RAND/JOSELINE Conf#: [id number] DID#: [id number] TOÑO
[2016-11-03] MEDS: MEROPENEM 500 MG/100 ML (PMX) 100 ML IVPB SCH ×3 (13:30→21:36)
--- NOTE | 2016-11-03 13:51 | PN ---
Date/Time of Note Date/Time of Note DATE: 11/03/16 TIME: 13:47 Assessment/Plan VTE Prophylaxis VTE Prophylaxis Intervention: SCD's Lines/Catheters IV Catheter Type (from Nrsg): A Line Urinary Cath still in place: Yes Reason Cath still needed: other (indicate) Assessment/Plan Assessment/Plan 1. Coronary artery disease, NSTEMI, s/p CABG on 11/02/2016, on pressor 2. Hypotension, on dopamine 3. Diabetes mellitus, on insulin drip 4. H/o of upper GI bleeding with esophagitis on EGD, stable 5. Microcytic anemia. follow up with H/H 6. Seizure disorder. stable 7. Peripheral vascular disease status post foot amputation 8. Case discussed with staff, critical care time 40 minutes Subjective 24 Hr Interval Summary Free Text/Dictation extubated last night still on low dose of dopamine on insulin drip Exam/Review of Systems Vital Signs Vitals Vital Signs Date Time Temp Pulse Resp B/P Pulse Ox O2 Delivery O2 Flow Rate FiO2 11/03/16 13:00 98.8 79 20 106/64 99 Nasal Cannula 11/03/16 11:30 5.0 11/03/16 00:00 40 Intake and Output 11/02/16 11/02/16 11/03/16 15:00 23:00 07:00 Intake Total 3888.943 ml 1073.3 ml Output Total 2874 ml 880 ml Balance 1014.943 ml 193.3 ml Exam Constitutional: alert, oriented, well developed Psych: nl mood/affect, no complaints Head: atraumatic, normocephalic Eyes: EOMI, PERRL, nl conjunctiva, nl lids ENMT: nl external ears & nose, nl lips & teeth, nl nasal mucosa & septum Neck: non-tender, supple Respiratory: clear to auscultation, normal air movement, No congested cough, No crackles/rales, No diminished breath sounds, No intercostal retraction, No labored breathing, No other, No respirations, No tactile fremitus, No wheezing Cardiovascular: nl pulses, regular rate and rhythm, No S3, No S4, No bruits, No diastolic murmur, No edema, No gallop, No irregular rhythm, No jugular venous distention (JVD), No murmurs/extra sounds, No other, No rub, No systolic murmur Gastrointestinal: nl liver, spleen, non-tender, soft, No ascites, No bowel sounds, No distended, No firm, No hepatomegaly, No mass , No other, No rebound or guarding, No splenomegaly, No surgical scars, No tender Musculoskeletal: nl extremities to inspection Extremities: normal pulses, other, No calf tenderness, No clubbing, No cyanosis, No edema, No palpable cord, No pitting pedal edema, No tenderness 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, nl mental status, nl speech, nl strength Skin: nl turgor Lymph: nl lymph nodes Results Result Diagram: 11/03/16 0345 11/03/16 0345 Results 24 hrs Laboratory Tests Test 11/02/16 17:34 11/02/16 17:55 11/02/16 18:10 11/02/16 18:55 Bedside Glucose 86 112 Blood Gas Specimen Source Blood arterial Arterial Blood Date Drawn 11/02/2016 7:42:02 PM Arterial Blood pH (Temp corrected) 7.355 Arterial Blood pCO2 (Temp correct) 40.7 Arterial Blood pO2 (Temp corrected) 114.5 H Arterial Blood HCO3 22.2 Arterial Blood Base Excess -3.1 L Arterial Blood Oxygen Saturation 97.8 Cam Test N/A Arterial Blood Gas Puncture Site A-Line Arterial Blood Carboxyhemoglobin 0.3 Arterial Blood Methemoglobin 0.5 Blood Gas A-a O2 Differential 196.2 H Oxyhemoglobin Percent 97.0 Total Hemoglobin 10.8 L Blood Gas Temperature 37.0 Blood Gas Respiration Rate 14.0 Blood Gas Actual Respiration Rate 14 Blood Gas Modality VENT-AC FiO2 50.0 Blood Gas Tidal Volume 550.0 Blood Gas Low PEEP Setting 5.0 Blood Gas Inspiratory Pressure 23.0 Blood Gas Notified Whom JMD Blood Gas Notified Time 11/02/2016 7:54:50 PM White Blood Count 12.1 #H Red Blood Count 3.61 L Hemoglobin 9.2 L Hematocrit 28.7 L Mean Corpuscular Volume 79.5 L Mean Corpuscular Hemoglobin 25.5 L Mean Corpuscular Hemoglobin Concent 32.1 Red Cell Distribution Width 15.0 H Platelet Count 202 Mean Platelet Volume 8.6 Neutrophils % 81.7 H Lymphocytes % 9.9 L Monocytes % 6.3 Eosinophils % 1.5 Basophils % 0.2 Nucleated Red Blood Cells % 0.0 Neutrophils # 9.9 H Lymphocytes # 1.2 Monocytes # 0.8 Eosinophils # 0.2 Basophils # 0.0 Nucleated Red Blood Cells # 0.0 Prothrombin Time 16.5 #H Prothrombin Time Ratio 1.3 INR International Normalized Ratio 1.32 Activated Partial Thromboplast Time 34.9 Sodium Level 139 Potassium Level 4.4 Chloride Level 103 Carbon Dioxide Level 26 Anion Gap 14 Blood Urea Nitrogen 24 H Creatinine 1.04 Glucose Level 100 # Calcium Level 9.3 Magnesium Level 2.9 H Test 11/02/16 19:53 11/02/16 20:41 11/02/16 21:44 11/02/16 22:39 Bedside Glucose 136 164 151 143 Test 11/03/16 00:04 11/03/16 00:45 11/03/16 02:34 11/03/16 03:45 Blood Gas Specimen Source Blood arterial Arterial Blood Date Drawn 11/03/2016 12:04:45 AM Arterial Blood pH (Temp corrected) 7.400 Arterial Blood pCO2 (Temp correct) 38.8 Arterial Blood pO2 (Temp corrected) 110.6 H Arterial Blood HCO3 23.5 Arterial Blood Base Excess -1.1 Arterial Blood Oxygen Saturation 97.5 Cam Test N/A Arterial Blood Gas Puncture Site A-Line Arterial Blood Carboxyhemoglobin 0.3 Arterial Blood Methemoglobin 0.3 Blood Gas A-a O2 Differential 130.0 H Oxyhemoglobin Percent 96.9 Total Hemoglobin 9.6 L Blood Gas Temperature 37.0 Blood Gas Actual Respiration Rate 21 Blood Gas Modality VENT-CPAP+PS FiO2 40.0 Blood Gas Low PEEP Setting 5.0 Blood Gas Pressure Support 5 Blood Gas Notified Whom [facility] Blood Gas Notified Time 11/03/2016 12:15:41 AM Bedside Glucose 146 148 White Blood Count 8.9 # Red Blood Count 3.55 L Hemoglobin 9.0 L Hematocrit 29.2 L Mean Corpuscular Volume 82.3 Mean Corpuscular Hemoglobin 25.4 L Mean Corpuscular Hemoglobin Concent 30.8 L Red Cell Distribution Width 15.1 H Platelet Count 187 Mean Platelet Volume 9.2 Neutrophils % 87.8 H Lymphocytes % 4.6 L Monocytes % 7.1 Eosinophils % 0.2 Basophils % 0.1 Nucleated Red Blood Cells % 0.0 Neutrophils # 7.8 H Lymphocytes # 0.4 L Monocytes # 0.6 Eosinophils # 0.0 Basophils # 0.0 Nucleated Red Blood Cells # 0.0 Prothrombin Time 14.8 H Prothrombin Time Ratio 1.2 INR International Normalized Ratio 1.16 Activated Partial Thromboplast Time 34.0 Sodium Level 142 Potassium Level 4.8 Chloride Level 106 Carbon Dioxide Level 28 Anion Gap 13 Blood Urea Nitrogen 28 H Creatinine 1.20 Glucose Level 156 Calcium Level 8.9 Magnesium Level 2.6 H Test 11/03/16 04:29 11/03/16 06:35 11/03/16 08:24 11/03/16 09:32 Bedside Glucose 160 145 142 142 Test 11/03/16 10:24 11/03/16 11:24 11/03/16 12:40 11/03/16 13:31 Bedside Glucose 153 166 146 130 Medications Medications Current Medications Lorazepam (Ativan) 0.5 mg Q6H PRN IV ANXIETY; Start 10/28/16 at 04:00 Acetaminophen (Tylenol Supp) 650 mg Q6H PRN [place] PAIN LEVEL 1-3 OR FEVER Last administered on 11/02/16 22:15; Admin Dose 650 MG; Start 10/28/16 at 04:00 Aspirin (Aspirin) 81 mg DAILY PO Last administered on 11/03/16 08:25; Admin Dose 81 MG; Start 10/28/16 at 09:00 Atorvastatin Calcium (Lipitor) 40 mg HS PO Last administered on 11/01/16 21:46 ; Admin Dose 40 MG; Start 10/28/16 at 21:00 Metoprolol Tartrate (Lopressor) 25 mg BID PO Last administered on 11/02/16 09: 23; Admin Dose 25 MG; Start 10/28/16 at 09:00 Morphine Sulfate (morphine) 2 mg Q2H PRN IV FOR NON CARDIAC PAIN (4-10) Last administered on 11/02/16 20:28; Admin Dose 2 MG; Start 10/28/16 at 14:00 Enoxaparin Sodium (Lovenox) 40 mg DAILY SC Last administered on 11/01/16 09:03 ; Admin Dose 40 MG; Start 10/29/16 at 09:00; Status Future Hold Acetaminophen/ Hydrocodone Bitart ([place] (5/325)) 1 tab Q4H PRN PO MODERATE PAIN LEVEL 4-6 Last administered on 10/29/16 00:09; Admin Dose 1 TAB; Start at 00:00 Acetaminophen/ Hydrocodone Bitart ([place] (5/325)) 2 tab Q4H PRN PO SEVERE PAIN LEVEL 7-10; Start 10/29/16 at 00:00 Lactobacillus Acidoph/Bulgaricus (Floranex) 1 tab BID PO Last administered on 08:25; Admin Dose 1 TAB; Start 10/30/16 at 13:00 Mupirocin (Bactroban) 1 applic BID TOP Last administered on 11/03/16 08:26; Admin Dose 1 APPLIC; Start 10/31/16 at 09:00; Stop 11/15/16 at 23:00 Vancomycin HCl (Vanco Iv Per Pharmacy) PER PHARMACY DOSING NOTE XX ; Start 10/31 at 01:00 Lamotrigine (Lamictal) 200 mg BID PO Last administered on 11/03/16 08:25; Admin Dose 200 MG; Start 10/31/16 at 14:30 Miscellaneous Information 1 ea NOTE XX ; Start 10/31/16 at 13:30 Glucose (Glutose) 15 gm Q15M PRN PO DECREASED GLUCOSE; Start 10/31/16 at 13:30 Glucose (Glutose) 22.5 gm Q15M PRN PO DECREASED GLUCOSE; Start 10/31/16 at 13: 30 Dextrose (D50w Syringe) 25 ml Q15M PRN IV DECREASED GLUCOSE; Start 10/31/16 at 13:30 Dextrose (D50w Syringe) 50 ml Q15M PRN IV DECREASED GLUCOSE; Start 10/31/16 at 13:30 Glucagon (Glucagen) 1 mg Q15M PRN IM DECREASED GLUCOSE; Start 10/31/16 at 13:30 Glucose 15 gm 15 gm Q15M PRN BUCCAL DECREASED GLUCOSE; Start 10/31/16 at 13:30 Vancomycin HCl 250 ml @ 125 mls/hr Q12H IVPB Last administered on 11/03/16 01 :58; Admin Dose 125 MLS/HR; Start 11/02/16 at 02:00 Milrinone Lactate 100 ml @ 10.553 mls/ hr TITRATE IV Last administered on 11/02 18:18; Admin Dose 4.925 MLS/HR; Start 11/02/16 at 18:30 Dopamine HCl/ Dextrose 250 ml @ 7.035 mls/ hr TITRATE IV Last administered on 11/02/16 18:20; Admin Dose 3.518 MLS/HR; Start 11/02/16 at 18:30 Albumin Human 250 ml @ 500 mls/hr PRN PRN IV CVP< 8, OR SBP<90 Last administered on 11/03/16 04:15; Admin Dose 500 MLS/HR; Start 11/02/16 at 18:30 Hydromorphone HCl (Dilaudid) 0.2 mg Q1H PRN IV PAIN LEVEL 1-5; Start 11/02/16 at 18:30 Hydromorphone HCl 0.4 mg 0.4 mg Q1H PRN IV PAIN LEVEL 6-10; Start 11/02/16 at 18:30 Magnesium Sulfate/ Dextrose 100 ml @ 100 mls/hr PRN PRN IVPB PENDING LAB VALUE ; Start 11/02/16 at 18:30 Potassium Chloride/Dextrose/ Sodium Chloride (KCl/D5-1/4ns) 1,020 ml @ 60 mls/ hr Q17H IV Last administered on 11/03/16 11:05; Admin Dose 60 MLS/HR; Start at 20:00 Diagnostic Test (Pha) (Accu-Chek) 1 ea Q1H XX Last administered on 11/03/16 13 :32; Admin Dose 1 EA; Start 11/02/16 at 19:30 Dextrose (D50w Syringe) 25 ml Q15M PRN IV Till BS 80 mg/dL or above x2; Start 11/02/16 at 19:30 Dextrose (D50w Syringe) 50 ml Q15M PRN IV Till BS 80 mg/dL or above x2; Start 11/02/16 at 19:30 Morphine Sulfate 3 mg 3 mg Q4H PRN IV PAIN LEVEL 7-10 Last administered on 11/03 08:35; Admin Dose 3 MG; Start 11/02/16 at 22:59 Ondansetron HCl 8 mg/Sodium Chloride 54 ml @ 216 mls/hr Q6H PRN IV NAUSEA AND/ OR VOMITING Last administered on 11/03/16 11:05; Admin Dose 216 MLS/HR; Start 11/02/16 at 23:30 Meropenem (Merrem 500 Mg/ 100 ml (Pmx)) 100 ml @ 200 mls/hr Q8 IVPB ; Start at 13:30 ARIANNA NGUYEN MD Nov 03, 2016 13:51
--- NOTE | 2016-11-03 14:59 | RADRPT ---
Vent Rate: 115 bpm RR Interval: 0 msec [place] Interval: 198 msec QRS Duration: 92 msec QT Interval: 314 msec QTC Interval: 434 msec P-R-T [place]: 80 - 98 - -50 degrees Sinus tachycardia Rightward axis Inferior infarct , age undetermined Abnormal ECG Electronically Signed By: Philipp Andre [id number]
--- NOTE | 2016-11-03 14:59 | RADRPT ---
Vent Rate: 91 bpm RR Interval: 0 msec [place] Interval: 176 msec QRS Duration: 88 msec QT Interval: 354 msec QTC Interval: 435 msec P-R-T [place]: 12 - 53 - -8 degrees Sinus rhythm with occasional premature ventricular complexes Possible Inferior infarct , age undetermined Abnormal ECG Electronically Signed By: Philipp Andre [id number]
--- NOTE | 2016-11-03 15:00 | RADRPT ---
Vent Rate: 87 bpm RR Interval: 0 msec [place] Interval: 150 msec QRS Duration: 86 msec QT Interval: 372 msec QTC Interval: 447 msec P-R-T [place]: 18 - 63 - 37 degrees Normal sinus rhythm ST amp; T wave abnormality, consider inferior and anterior ischemia Abnormal ECG Electronically Signed By: Philipp Andre [id number]
--- NOTE | 2016-11-03 15:06 | RADRPT ---
Vent Rate: 82 bpm RR Interval: 0 msec [place] Interval: 164 msec QRS Duration: 82 msec QT Interval: 378 msec QTC Interval: 441 msec P-R-T [place]: 30 - 43 - 13 degrees Normal sinus rhythm Nonspecific T wave abnormality Abnormal ECG Electronically Signed By: Philipp Andre [id number]
[2016-11-03] MEDS: morphine 2 MG INJ IV PRN ×2 (16:24→22:48)
--- NOTE | 2016-11-03 18:16 | CONS ---
Date/Time of Note Date/Time of Note DATE: 11/03/16 TIME: 18:14 Assessment/Plan Assessment/Plan Chief Complaint/Hosp Course Assessment: Status post NSTEMI Coronary artery disease - status post CABG 11/02/2016 (CORTEZ-prox LAD-distal LAD, SVG-OM1, SVG-OM2-PDA, SVG-OM3) Acute on chronic diastolic heart failure - diuresed and thoracentesis at [facility], now euvolemic Seizure disorder - initial presentation was seizure Diabetes mellitus Anemia - bone marrow biopsy results pending Esophagitis on EGD Status post right transmetatarsal amputation Recommendations: -pre-operative echocardiogram showed LVEF 55%, basal inferolateral and inferior hypokinesis -continue aspirin -continue atorvastatin -continue metoprolol 25mg BID -monitor volume status, spot dose diuretics as needed -post-operative care per surgery Problems: Consultation Date/Type/Reason Admit Date/Time Oct 27, 2016 at 22:32 Initial Consult Date 10/28/16 Type of Consultation: Cardiology 24 HR Interval Summary Free Text/Dictation Extubated. Hemodynamically stable off pressors. Exam/Review of Systems Vital Signs Vitals Vital Signs Date Time Temp Pulse Resp B/P Pulse Ox O2 Delivery O2 Flow Rate FiO2 11/03/16 17:31 5.0 11/03/16 17:00 75 18 97/61 100 Nasal Cannula 11/03/16 16:00 98.2 11/03/16 00:00 40 Intake and Output 11/02/16 11/02/16 11/03/16 15:00 23:00 07:00 Intake Total 3888.943 ml 1073.3 ml Output Total 2874 ml 880 ml Balance 1014.943 ml 193.3 ml Exam Constitutional: Alert, no distress Psych: Nl mood/affect Head: atraumatic, normocephalic Eyes: nl conjunctiva, nl lids Neck: non-tender, supple, No jvd Respiratory: clear to auscultation, No crackles/rales Cardiovascular: regular rate and rhythm Gastrointestinal: non-tender, soft Extremities: No clubbing, No cyanosis, No edema Neurological: Nl mental status, Nl speech Results Result Diagram: 11/03/16 0345 11/03/16 0345 Results 24 hrs Laboratory Tests Test 11/02/16 18:55 11/02/16 19:53 11/02/16 20:41 11/02/16 21:44 Bedside Glucose 112 136 164 151 Test 11/02/16 22:39 11/03/16 00:04 11/03/16 00:45 11/03/16 02:34 Bedside Glucose 143 146 148 Blood Gas Specimen Source Blood arterial Arterial Blood Date Drawn 11/03/2016 12:04:45 AM Arterial Blood pH (Temp corrected) 7.400 Arterial Blood pCO2 (Temp correct) 38.8 Arterial Blood pO2 (Temp corrected) 110.6 H Arterial Blood HCO3 23.5 Arterial Blood Base Excess -1.1 Arterial Blood Oxygen Saturation 97.5 Cam Test N/A Arterial Blood Gas Puncture Site A-Line Arterial Blood Carboxyhemoglobin 0.3 Arterial Blood Methemoglobin 0.3 Blood Gas A-a O2 Differential 130.0 H Oxyhemoglobin Percent 96.9 Total Hemoglobin 9.6 L Blood Gas Temperature 37.0 Blood Gas Actual Respiration Rate 21 Blood Gas Modality VENT-CPAP+PS FiO2 40.0 Blood Gas Low PEEP Setting 5.0 Blood Gas Pressure Support 5 Blood Gas Notified Whom JMD Blood Gas Notified Time 11/03/2016 12:15:41 AM Test 11/03/16 03:45 11/03/16 04:29 11/03/16 06:35 11/03/16 08:24 White Blood Count 8.9 # Red Blood Count 3.55 L Hemoglobin 9.0 L Hematocrit 29.2 L Mean Corpuscular Volume 82.3 Mean Corpuscular Hemoglobin 25.4 L Mean Corpuscular Hemoglobin Concent 30.8 L Red Cell Distribution Width 15.1 H Platelet Count 187 Mean Platelet Volume 9.2 Neutrophils % 87.8 H Lymphocytes % 4.6 L Monocytes % 7.1 Eosinophils % 0.2 Basophils % 0.1 Nucleated Red Blood Cells % 0.0 Neutrophils # 7.8 H Lymphocytes # 0.4 L Monocytes # 0.6 Eosinophils # 0.0 Basophils # 0.0 Nucleated Red Blood Cells # 0.0 Prothrombin Time 14.8 H Prothrombin Time Ratio 1.2 INR International Normalized Ratio 1.16 Activated Partial Thromboplast Time 34.0 Sodium Level 142 Potassium Level 4.8 Chloride Level 106 Carbon Dioxide Level 28 Anion Gap 13 Blood Urea Nitrogen 28 H Creatinine 1.20 Glucose Level 156 Calcium Level 8.9 Magnesium Level 2.6 H Bedside Glucose 160 145 142 Test 11/03/16 09:32 11/03/16 10:24 11/03/16 11:24 11/03/16 12:40 Bedside Glucose 142 153 166 146 Test 11/03/16 13:31 11/03/16 14:41 11/03/16 15:22 11/03/16 16:26 Bedside Glucose 130 117 137 131 Test 11/03/16 17:16 Bedside Glucose 142 Medications Medications Current Medications Lorazepam (Ativan) 0.5 mg Q6H PRN IV ANXIETY; Start 10/28/16 at 04:00 Acetaminophen (Tylenol Supp) 650 mg Q6H PRN [place] PAIN LEVEL 1-3 OR FEVER Last administered on 11/02/16 22:15; Admin Dose 650 MG; Start 10/28/16 at 04:00 Aspirin (Aspirin) 81 mg DAILY PO Last administered on 11/03/16 08:25; Admin Dose 81 MG; Start 10/28/16 at 09:00 Atorvastatin Calcium (Lipitor) 40 mg HS PO Last administered on 11/01/16 21:46 ; Admin Dose 40 MG; Start 10/28/16 at 21:00 Metoprolol Tartrate (Lopressor) 25 mg BID PO Last administered on 11/02/16 09: 23; Admin Dose 25 MG; Start 10/28/16 at 09:00 Morphine Sulfate (morphine) 2 mg Q2H PRN IV FOR NON CARDIAC PAIN (4-10) Last administered on 11/03/16 16:24; Admin Dose 2 MG; Start 10/28/16 at 14:00 Enoxaparin Sodium (Lovenox) 40 mg DAILY SC Last administered on 11/01/16 09:03 ; Admin Dose 40 MG; Start 10/29/16 at 09:00; Status Future Hold Acetaminophen/ Hydrocodone Bitart ([place] (5/325)) 1 tab Q4H PRN PO MODERATE PAIN LEVEL 4-6 Last administered on 10/29/16 00:09; Admin Dose 1 TAB; Start at 00:00 Acetaminophen/ Hydrocodone Bitart ([place] (5/325)) 2 tab Q4H PRN PO SEVERE PAIN LEVEL 7-10; Start 10/29/16 at 00:00 Lactobacillus Acidoph/Bulgaricus (Floranex) 1 tab BID PO Last administered on 08:25; Admin Dose 1 TAB; Start 10/30/16 at 13:00 Mupirocin (Bactroban) 1 applic BID TOP Last administered on 11/03/16 08:26; Admin Dose 1 APPLIC; Start 10/31/16 at 09:00; Stop 11/15/16 at 23:00 Vancomycin HCl (Vanco Iv Per Pharmacy) PER PHARMACY DOSING NOTE XX ; Start 10/31 at 01:00 Lamotrigine (Lamictal) 200 mg BID PO Last administered on 11/03/16 08:25; Admin Dose 200 MG; Start 10/31/16 at 14:30 Miscellaneous Information 1 ea NOTE XX ; Start 10/31/16 at 13:30 Glucose (Glutose) 15 gm Q15M PRN PO DECREASED GLUCOSE; Start 10/31/16 at 13:30 Glucose (Glutose) 22.5 gm Q15M PRN PO DECREASED GLUCOSE; Start 10/31/16 at 13: 30 Dextrose (D50w Syringe) 25 ml Q15M PRN IV DECREASED GLUCOSE; Start 10/31/16 at 13:30 Dextrose (D50w Syringe) 50 ml Q15M PRN IV DECREASED GLUCOSE; Start 10/31/16 at 13:30 Glucagon (Glucagen) 1 mg Q15M PRN IM DECREASED GLUCOSE; Start 10/31/16 at 13:30 Glucose 15 gm 15 gm Q15M PRN BUCCAL DECREASED GLUCOSE; Start 10/31/16 at 13:30 Vancomycin HCl 250 ml @ 125 mls/hr Q12H IVPB Last administered on 11/03/16 13 :55; Admin Dose 125 MLS/HR; Start 11/02/16 at 02:00 Milrinone Lactate 100 ml @ 10.553 mls/ hr TITRATE IV Last administered on 11/02 18:18; Admin Dose 4.925 MLS/HR; Start 11/02/16 at 18:30 Dopamine HCl/ Dextrose 250 ml @ 7.035 mls/ hr TITRATE IV Last administered on 11/02/16 18:20; Admin Dose 3.518 MLS/HR; Start 11/02/16 at 18:30 Albumin Human 250 ml @ 500 mls/hr PRN PRN IV CVP< 8, OR SBP<90 Last administered on 11/03/16 04:15; Admin Dose 500 MLS/HR; Start 11/02/16 at 18:30 Hydromorphone HCl (Dilaudid) 0.2 mg Q1H PRN IV PAIN LEVEL 1-5; Start 11/02/16 at 18:30 Hydromorphone HCl 0.4 mg 0.4 mg Q1H PRN IV PAIN LEVEL 6-10; Start 11/02/16 at 18:30 Magnesium Sulfate/ Dextrose 100 ml @ 100 mls/hr PRN PRN IVPB PENDING LAB VALUE ; Start 11/02/16 at 18:30 Potassium Chloride/Dextrose/ Sodium Chloride (KCl/D5-1/4ns) 1,020 ml @ 60 mls/ hr Q17H IV Last administered on 11/03/16 11:05; Admin Dose 60 MLS/HR; Start at 20:00 Diagnostic Test (Pha) (Accu-Chek) 1 ea Q1H XX Last administered on 11/03/16 17 :28; Admin Dose 1 EA; Start 11/02/16 at 19:30 Dextrose (D50w Syringe) 25 ml Q15M PRN IV Till BS 80 mg/dL or above x2; Start 11/02/16 at 19:30 Dextrose (D50w Syringe) 50 ml Q15M PRN IV Till BS 80 mg/dL or above x2; Start 11/02/16 at 19:30 Morphine Sulfate 3 mg 3 mg Q4H PRN IV PAIN LEVEL 7-10 Last administered on 11/03 08:35; Admin Dose 3 MG; Start 11/02/16 at 22:59 Ondansetron HCl 8 mg/Sodium Chloride 54 ml @ 216 mls/hr Q6H PRN IV NAUSEA AND/ OR VOMITING Last administered on 11/03/16 11:05; Admin Dose 216 MLS/HR; Start 11/02/16 at 23:30 Meropenem (Merrem 500 Mg/ 100 ml (Pmx)) 100 ml @ 200 mls/hr Q8 IVPB Last administered on 11/03/16 15:17; Admin Dose 200 MLS/HR; Start 11/03/16 at 13:30 Miscellaneous Information (*Rx Drug Level Order Reminder*) VANCO TR LEVEL PRIOR... ONCE ONCE XX ; Start 11/04/16 at 01:00; Stop 11/04/16 at 01:01 NANCIE HUGHES MD Nov 03, 2016 18:16
[2016-11-03] MEDS: INSULIN REGULAR, HUMAN 100 UNIT in SOD CHLORIDE 0.9% 99 ML IV SCH ×2 (20:16)
[2016-11-03] MEDS: ATORVASTATIN 40 MG TAB PO SCH (20:55)
--- NOTE | 2016-11-03 22:50 | CONS ---
Date/Time of Note Date/Time of Note DATE: 11/03/16 TIME: 13:48 Assessment/Plan Assessment/Plan Chief Complaint/Hosp Course -Anemia (Stable hgb 9.0 S/P EGD ([facility]) Esophagitis POST BMBX- AT SOH ASPIRATE - NEG FINAL PATH - N MONITOR BLOOD COUNT CLOSELY NSTEMI Multivessel CAD, POST CABG History of seizure History of alcoholism History of C difficile colitis Diabetes mellitus Problems: Consultation Date/Type/Reason Admit Date/Time Oct 27, 2016 at 22:32 Initial Consult Date 10/28/16 Type of Consultation: HEMEONC 24 HR Interval Summary Free Text/Dictation DOING OK POST OP NO NEW EVENTS BMBX - N Exam/Review of Systems Vital Signs Vitals Vital Signs Date Time Temp Pulse Resp B/P Pulse Ox O2 Delivery O2 Flow Rate FiO2 11/03/16 20:00 75 11/03/16 18:30 17 106/59 99 Nasal Cannula 5.0 11/03/16 18:00 98.1 11/03/16 00:00 40 Intake and Output 11/02/16 11/02/16 11/03/16 15:00 23:00 07:00 Intake Total 3888.943 ml 1073.3 ml Output Total 2874 ml 880 ml Balance 1014.943 ml 193.3 ml Exam Exam Constitutional: alert Neck: supple Respiratory: clear to auscultation, diminished breath sounds, No crackles/rales Cardiovascular: nl pulses, other (dressing intact midsternum), regular rate and rhythm Gastrointestinal: soft Extremities: normal pulses Results Result Diagram: 11/03/16 1800 11/03/16 0345 Results 24 hrs Laboratory Tests Test 11/03/16 00:04 11/03/16 00:45 11/03/16 02:34 11/03/16 03:45 Blood Gas Specimen Source Blood arterial Arterial Blood Date Drawn 11/03/2016 12:04:45 AM Arterial Blood pH (Temp corrected) 7.400 Arterial Blood pCO2 (Temp correct) 38.8 Arterial Blood pO2 (Temp corrected) 110.6 H Arterial Blood HCO3 23.5 Arterial Blood Base Excess -1.1 Arterial Blood Oxygen Saturation 97.5 Cam Test N/A Arterial Blood Gas Puncture Site A-Line Arterial Blood Carboxyhemoglobin 0.3 Arterial Blood Methemoglobin 0.3 Blood Gas A-a O2 Differential 130.0 H Oxyhemoglobin Percent 96.9 Total Hemoglobin 9.6 L Blood Gas Temperature 37.0 Blood Gas Actual Respiration Rate 21 Blood Gas Modality VENT-CPAP+PS FiO2 40.0 Blood Gas Low PEEP Setting 5.0 Blood Gas Pressure Support 5 Blood Gas Notified Whom KARLA Blood Gas Notified Time 11/03/2016 12:15:41 AM Bedside Glucose 146 148 White Blood Count 8.9 # Red Blood Count 3.55 L Hemoglobin 9.0 L Hematocrit 29.2 L Mean Corpuscular Volume 82.3 Mean Corpuscular Hemoglobin 25.4 L Mean Corpuscular Hemoglobin Concent 30.8 L Red Cell Distribution Width 15.1 H Platelet Count 187 Mean Platelet Volume 9.2 Neutrophils % 87.8 H Lymphocytes % 4.6 L Monocytes % 7.1 Eosinophils % 0.2 Basophils % 0.1 Nucleated Red Blood Cells % 0.0 Neutrophils # 7.8 H Lymphocytes # 0.4 L Monocytes # 0.6 Eosinophils # 0.0 Basophils # 0.0 Nucleated Red Blood Cells # 0.0 Prothrombin Time 14.8 H Prothrombin Time Ratio 1.2 INR International Normalized Ratio 1.16 Activated Partial Thromboplast Time 34.0 Sodium Level 142 Potassium Level 4.8 Chloride Level 106 Carbon Dioxide Level 28 Anion Gap 13 Blood Urea Nitrogen 28 H Creatinine 1.20 Glucose Level 156 Calcium Level 8.9 Magnesium Level 2.6 H Test 11/03/16 04:29 11/03/16 06:35 11/03/16 08:24 11/03/16 09:32 Bedside Glucose 160 145 142 142 Test 11/03/16 10:24 11/03/16 11:24 11/03/16 12:40 11/03/16 13:31 Bedside Glucose 153 166 146 130 Test 11/03/16 14:41 11/03/16 15:22 11/03/16 16:26 11/03/16 17:16 Bedside Glucose 117 137 131 142 Test 11/03/16 18:00 11/03/16 18:10 11/03/16 20:00 11/03/16 21:12 Hematocrit 25.0 L Bedside Glucose 130 125 100 Medications Medications Current Medications Lorazepam (Ativan) 0.5 mg Q6H PRN IV ANXIETY; Start 10/28/16 at 04:00 Acetaminophen (Tylenol Supp) 650 mg Q6H PRN [place] PAIN LEVEL 1-3 OR FEVER Last administered on 11/02/16 22:15; Admin Dose 650 MG; Start 10/28/16 at 04:00 Aspirin (Aspirin) 81 mg DAILY PO Last administered on 11/03/16 08:25; Admin Dose 81 MG; Start 10/28/16 at 09:00 Atorvastatin Calcium (Lipitor) 40 mg HS PO Last administered on 11/03/16 20:55 ; Admin Dose 40 MG; Start 10/28/16 at 21:00 Metoprolol Tartrate (Lopressor) 25 mg BID PO Last administered on 11/02/16 09: 23; Admin Dose 25 MG; Start 10/28/16 at 09:00 Morphine Sulfate (morphine) 2 mg Q2H PRN IV FOR NON CARDIAC PAIN (4-10) Last administered on 11/03/16 16:24; Admin Dose 2 MG; Start 10/28/16 at 14:00 Enoxaparin Sodium (Lovenox) 40 mg DAILY SC Last administered on 11/01/16 09:03 ; Admin Dose 40 MG; Start 10/29/16 at 09:00; Status Future Hold Acetaminophen/ Hydrocodone Bitart ([place] (5/325)) 1 tab Q4H PRN PO MODERATE PAIN LEVEL 4-6 Last administered on 10/29/16 00:09; Admin Dose 1 TAB; Start at 00:00 Acetaminophen/ Hydrocodone Bitart ([place] (5/325)) 2 tab Q4H PRN PO SEVERE PAIN LEVEL 7-10; Start 10/29/16 at 00:00 Lactobacillus Acidoph/Bulgaricus (Floranex) 1 tab BID PO Last administered on 20:55; Admin Dose 1 TAB; Start 10/30/16 at 13:00 Mupirocin (Bactroban) 1 applic BID TOP Last administered on 11/03/16 20:56; Admin Dose 1 APPLIC; Start 10/31/16 at 09:00; Stop 11/15/16 at 23:00 Vancomycin HCl (Vanco Iv Per Pharmacy) PER PHARMACY DOSING NOTE XX ; Start 10/31 at 01:00 Lamotrigine (Lamictal) 200 mg BID PO Last administered on 11/03/16 20:55; Admin Dose 200 MG; Start 10/31/16 at 14:30 Miscellaneous Information 1 ea NOTE XX ; Start 10/31/16 at 13:30 Glucose (Glutose) 15 gm Q15M PRN PO DECREASED GLUCOSE; Start 10/31/16 at 13:30 Glucose (Glutose) 22.5 gm Q15M PRN PO DECREASED GLUCOSE; Start 10/31/16 at 13: 30 Dextrose (D50w Syringe) 25 ml Q15M PRN IV DECREASED GLUCOSE; Start 10/31/16 at 13:30 Dextrose (D50w Syringe) 50 ml Q15M PRN IV DECREASED GLUCOSE; Start 10/31/16 at 13:30 Glucagon (Glucagen) 1 mg Q15M PRN IM DECREASED GLUCOSE; Start 10/31/16 at 13:30 Glucose 15 gm 15 gm Q15M PRN BUCCAL DECREASED GLUCOSE; Start 10/31/16 at 13:30 Vancomycin HCl 250 ml @ 125 mls/hr Q12H IVPB Last administered on 11/03/16 13 :55; Admin Dose 125 MLS/HR; Start 11/02/16 at 02:00 Milrinone Lactate 100 ml @ 10.553 mls/ hr TITRATE IV Last administered on 11/02 18:18; Admin Dose 4.925 MLS/HR; Start 11/02/16 at 18:30 Dopamine HCl/ Dextrose 250 ml @ 7.035 mls/ hr TITRATE IV Last administered on 11/02/16 18:20; Admin Dose 3.518 MLS/HR; Start 11/02/16 at 18:30 Albumin Human 250 ml @ 500 mls/hr PRN PRN IV CVP< 8, OR SBP<90 Last administered on 11/03/16 04:15; Admin Dose 500 MLS/HR; Start 11/02/16 at 18:30 Hydromorphone HCl (Dilaudid) 0.2 mg Q1H PRN IV PAIN LEVEL 1-5; Start 11/02/16 at 18:30 Hydromorphone HCl 0.4 mg 0.4 mg Q1H PRN IV PAIN LEVEL 6-10; Start 11/02/16 at 18:30 Magnesium Sulfate/ Dextrose 100 ml @ 100 mls/hr PRN PRN IVPB PENDING LAB VALUE ; Start 11/02/16 at 18:30 Potassium Chloride/Dextrose/ Sodium Chloride (KCl/D5-1/4ns) 1,020 ml @ 60 mls/ hr Q17H IV Last administered on 11/03/16 11:05; Admin Dose 60 MLS/HR; Start at 20:00 Diagnostic Test (Pha) (Accu-Chek) 1 ea Q1H XX Last administered on 11/03/16 21 :35; Admin Dose 1 EA; Start 11/02/16 at 19:30 Dextrose (D50w Syringe) 25 ml Q15M PRN IV Till BS 80 mg/dL or above x2; Start 11/02/16 at 19:30 Dextrose (D50w Syringe) 50 ml Q15M PRN IV Till BS 80 mg/dL or above x2; Start 11/02/16 at 19:30 Morphine Sulfate 3 mg 3 mg Q4H PRN IV PAIN LEVEL 7-10 Last administered on 11/03 08:35; Admin Dose 3 MG; Start 11/02/16 at 22:59 Ondansetron HCl 8 mg/Sodium Chloride 54 ml @ 216 mls/hr Q6H PRN IV NAUSEA AND/ OR VOMITING Last administered on 11/03/16 11:05; Admin Dose 216 MLS/HR; Start 11/02/16 at 23:30 Meropenem (Merrem 500 Mg/ 100 ml (Pmx)) 100 ml @ 200 mls/hr Q8 IVPB Last administered on 11/03/16 21:36; Admin Dose 200 MLS/HR; Start 11/03/16 at 13:30 Miscellaneous Information (*Rx Drug Level Order Reminder*) VANCO TR LEVEL PRIOR... ONCE ONCE XX ; Start 11/04/16 at 01:00; Stop 11/04/16 at 01:01 BETO PADILLA MD Nov 03, 2016 22:50
[2016-11-04] VITALS (44 sets, daily range): BP systolic 86–139; BP diastolic 50–77; PULSE 77–87; RESP 16–29
[2016-11-04] MEDS: ACCU-CHEK XX SCH ×25 (00:12→23:45)
[2016-11-04] MEDS: VANCOMYCIN 1 GM in NS 250 ML IVPB SCH ×2 (02:06→14:10)
[2016-11-04] MEDS: morphine 2 MG INJ IV PRN ×4 (03:54→21:59)
[2016-11-04] MEDS: POTASSIUM CHLORIDE 40 MEQ in DEXTROSE 5%-0.225% NACL 1,000 ML IV SCH ×2 (03:54→21:49)
[2016-11-04] MEDS: MEROPENEM 500 MG/100 ML (PMX) 100 ML IVPB SCH ×3 (05:36→21:49)
[2016-11-04 05:51] LABS: ADD SCAN DIFF NO
[2016-11-04 06:10] LABS: POTASSIUM 4.4 mmol/L (3.5-5.1)
[2016-11-04 06:11] LABS: BASOPHILS % 0.1 % (0.0-2.0); EOSINOPHILS # 0.2 10^3/ul (0.0-0.5); EOSINOPHILS % 1.4 % (0.0-7.0); HEMATOCRIT 28.3 % (42.0-52.0); HEMOGLOBIN 8.6 g/dl (14.0-18.0); LYMPHOCYTES # 0.8 10^3/ul (0.8-2.9); LYMPHOCYTES % 6.9 % (15.0-51.0); MEAN CORPUSCULAR HEMOGLOBIN 25.3 pg (29.0-33.0); MEAN CORPUSCULAR HGB CONC 30.4 g/dl (32.0-37.0); MEAN CORPUSCULAR VOLUME 83.2 fl (82.0-101.0); MEAN PLATELET VOLUME 9.9 fl (7.4-10.4); MONOCYTES % 8.8 % (0.0-11.0); NEUTROPHILS % 82.4 % (39.0-77.0); PLATELET COUNT 157 10^3/UL (140-415); RED CELL DISTRIBUTION WIDTH 15.4 % (11.5-14.5); WHITE BLOOD COUNT 10.9 10^3/ul (4.8-10.8)
[2016-11-04 06:12] LABS: CREATININE 0.94 mg/dl (0.61-1.24)
[2016-11-04 06:13] LABS: CALCIUM 8.3 mg/dl (8.4-10.2)
[2016-11-04] MEDS: ASPIRIN 81 MG TAB PO SCH (08:34)
[2016-11-04] MEDS: LACTOBACILLUS CHEW TAB PO SCH ×2 (08:34→20:50)
[2016-11-04] MEDS: LAMOTRIGINE 100 MG TAB PO SCH ×2 (08:34→20:50)
[2016-11-04] MEDS: MUPIROCIN 2% 22 GM OINT TOP SCH ×2 (08:34→20:51)
[2016-11-04] MEDS: METOPROLOL 25 MG TAB PO SCH ×2 (08:35→20:51)
[2016-11-04] MEDS: ONDANSETRON INJ 8 MG in SOD CHLORIDE 0.9% 50 ML IV PRN ×3 (11:14→23:14)
--- NOTE | 2016-11-04 11:50 | PN ---
DATE: 11/04/2016 SUBJECTIVE: No acute events. The patient is awake, feels very weak but overall in no distress. St ill low-grade fevers. VITAL SIGNS: T-max 100.1, pulse 83, respirations 20, blood pressure 115/69, saturation 96% on 4 lit ers nasal cannula. WBC 10.9, H and H 8.6 and 28.3, platelets 157, neutrophils 82.4, BUN 29, creatinine 0.94. INDWELLINGS: Right IJ [place] with introducer, chest tube, Guerra catheter. ANTIMICROBIALS: The patient is on IV vancomycin, meropenem, topical Bactroban to nares. PHYSICAL EXAMINATION: GENERAL: This is a fragile, elderly man who is awake, in no distress. HEENT: Head atraumatic, normocephalic. Sclerae anicteric. Buccal mucosa dry. NECK: Supple, mid sternal dressing intact. CHEST: Rise symmetrical. Breath sounds diminished to bases. HEART: S1, S2. ABDOMEN: Soft, bowel tones present. EXTREMITIES: Without cyanosis. Left lower extremity [place] wrapped. ASSESSMENT: 1. Systemic inflammatory response syndrome. 2. Healthcare-associated pneumonia. 3. Methicillin-resistant Staphylococcus aureus nares colonization. 4. Coronary artery disease status post coronary artery bypass graft on 11/02/2016. 5. Diabetes. 6. Hypertension. PLAN: The patient remains hemodynamically stable on appropriate antimicrobials. Continue present c are, physical therapy, incentive spirometry and management as per primary team and consultants. Dictated By: CINDY PINA HR OPERATIONS ADVISOR for LISSETH RAND/NTS Conf#: [id number] DID#: [id number]
--- NOTE | 2016-11-04 15:58 | RADRPT ---
Vent Rate: 87 bpm RR Interval: 0 msec IA Interval: 148 msec QRS Duration: 80 msec QT Interval: 358 msec QTC Interval: 430 msec P-R-T [place]: 39 - 51 - -30 degrees Normal sinus rhythm Cannot rule out Inferior infarct , age undetermined Anterior St-T wave abnormalities Abnormal ECG Electronically Signed By: Philipp Andre [id number]
--- NOTE | 2016-11-04 16:23 | CONS ---
Date/Time of Note Date/Time of Note DATE: 11/04/16 TIME: 16:21 Assessment/Plan Assessment/Plan Chief Complaint/Hosp Course Assessment: Status post NSTEMI Coronary artery disease - status post CABG 11/02/2016 (CORTEZ-prox LAD-distal LAD, SVG-OM1, SVG-OM2-PDA, SVG-OM3) Acute on chronic diastolic heart failure - diuresed and thoracentesis at [facility], now euvolemic Seizure disorder - initial presentation was seizure Diabetes mellitus Anemia - bone marrow biopsy results pending Esophagitis on EGD Status post right transmetatarsal amputation Healthcare-associated pneumonia - per infectious disease Recommendations: -pre-operative echocardiogram showed LVEF 55%, basal inferolateral and inferior hypokinesis -continue aspirin -continue atorvastatin -continue metoprolol 25mg BID -monitor volume status, spot dose diuretics as needed -post-operative care per surgery Problems: Consultation Date/Type/Reason Admit Date/Time Oct 27, 2016 at 22:32 Initial Consult Date 10/28/16 Type of Consultation: Cardiology 24 HR Interval Summary Free Text/Dictation Low grade fever to 100.1 F. Detailed Summary Additional Comments 14 point review of systems without changes. Exam/Review of Systems Vital Signs Vitals Vital Signs Date Time Temp Pulse Resp B/P Pulse Ox O2 Delivery O2 Flow Rate FiO2 11/04/16 13:00 77 24 112/67 98 Nasal Cannula 3.0 11/04/16 12:00 99.9 11/04/16 01:50 27 Intake and Output 11/03/16 11/03/16 11/04/16 15:00 23:00 07:00 Intake Total 907.6 ml 811.7 ml 957 ml Output Total 352 ml 329 ml 177 ml Balance 555.6 ml 482.7 ml 780 ml Exam Constitutional: Alert, no distress Psych: Nl mood/affect Head: atraumatic, normocephalic Eyes: nl conjunctiva, nl lids Neck: non-tender, supple, No jvd Respiratory: clear to auscultation, No crackles/rales Cardiovascular: regular rate and rhythm Gastrointestinal: non-tender, soft Extremities: No clubbing, No cyanosis, No edema Neurological: Nl mental status, Nl speech Results Result Diagram: 11/04/16 0455 11/04/16 0455 Results 24 hrs Laboratory Tests Test 11/03/16 16:26 11/03/16 17:16 11/03/16 18:00 11/03/16 18:10 Bedside Glucose 131 142 130 Hematocrit 25.0 L Test 11/03/16 20:00 11/03/16 21:12 11/03/16 22:44 11/04/16 00:55 Bedside Glucose 125 100 106 Vancomycin Level Trough 11.8 Test 11/04/16 01:03 11/04/16 02:54 11/04/16 03:58 11/04/16 04:41 Bedside Glucose 120 132 121 116 Test 11/04/16 04:55 11/04/16 06:33 11/04/16 08:26 11/04/16 11:08 White Blood Count 10.9 #H Red Blood Count 3.40 L Hemoglobin 8.6 L Hematocrit 28.3 L Mean Corpuscular Volume 83.2 Mean Corpuscular Hemoglobin 25.3 L Mean Corpuscular Hemoglobin Concent 30.4 L Red Cell Distribution Width 15.4 H Platelet Count 157 Mean Platelet Volume 9.9 Neutrophils % 82.4 H Lymphocytes % 6.9 L Monocytes % 8.8 Eosinophils % 1.4 Basophils % 0.1 Nucleated Red Blood Cells % 0.0 Neutrophils # 9.0 H Lymphocytes # 0.8 Monocytes # 1.0 H Eosinophils # 0.2 Basophils # 0.0 Nucleated Red Blood Cells # 0.0 Sodium Level 137 Potassium Level 4.4 Chloride Level 104 Carbon Dioxide Level 27 Anion Gap 10 Blood Urea Nitrogen 29 H Creatinine 0.94 Glucose Level 117 Calcium Level 8.3 L Bedside Glucose 145 153 130 Test 11/04/16 13:21 11/04/16 15:15 Bedside Glucose 141 147 Medications Medications Current Medications Lorazepam (Ativan) 0.5 mg Q6H PRN IV ANXIETY; Start 10/28/16 at 04:00 Acetaminophen (Tylenol Supp) 650 mg Q6H PRN [place] PAIN LEVEL 1-3 OR FEVER Last administered on 11/02/16 22:15; Admin Dose 650 MG; Start 10/28/16 at 04:00 Aspirin (Aspirin) 81 mg DAILY PO Last administered on 11/04/16 08:34; Admin Dose 81 MG; Start 10/28/16 at 09:00 Atorvastatin Calcium (Lipitor) 40 mg HS PO Last administered on 11/03/16 20:55 ; Admin Dose 40 MG; Start 10/28/16 at 21:00 Metoprolol Tartrate (Lopressor) 25 mg BID PO Last administered on 11/04/16 08: 35; Admin Dose 25 MG; Start 10/28/16 at 09:00 Morphine Sulfate (morphine) 2 mg Q2H PRN IV FOR NON CARDIAC PAIN (4-10) Last administered on 11/04/16 08:33; Admin Dose 2 MG; Start 10/28/16 at 14:00 Enoxaparin Sodium (Lovenox) 40 mg DAILY SC Last administered on 11/01/16 09:03 ; Admin Dose 40 MG; Start 10/29/16 at 09:00; Status Future Hold Acetaminophen/ Hydrocodone Bitart ([place] (5/325)) 1 tab Q4H PRN PO MODERATE PAIN LEVEL 4-6 Last administered on 10/29/16 00:09; Admin Dose 1 TAB; Start at 00:00 Acetaminophen/ Hydrocodone Bitart ([place] (5/325)) 2 tab Q4H PRN PO SEVERE PAIN LEVEL 7-10; Start 10/29/16 at 00:00 Lactobacillus Acidoph/Bulgaricus (Floranex) 1 tab BID PO Last administered on 08:34; Admin Dose 1 TAB; Start 10/30/16 at 13:00 Mupirocin (Bactroban) 1 applic BID TOP Last administered on 11/04/16 08:34; Admin Dose 1 APPLIC; Start 10/31/16 at 09:00; Stop 11/15/16 at 23:00 Vancomycin HCl (Vanco Iv Per Pharmacy) PER PHARMACY DOSING NOTE XX ; Start 10/31 at 01:00 Lamotrigine (Lamictal) 200 mg BID PO Last administered on 11/04/16 08:34; Admin Dose 200 MG; Start 10/31/16 at 14:30 Miscellaneous Information 1 ea NOTE XX ; Start 10/31/16 at 13:30 Glucose (Glutose) 15 gm Q15M PRN PO DECREASED GLUCOSE; Start 10/31/16 at 13:30 Glucose (Glutose) 22.5 gm Q15M PRN PO DECREASED GLUCOSE; Start 10/31/16 at 13: 30 Dextrose (D50w Syringe) 25 ml Q15M PRN IV DECREASED GLUCOSE; Start 10/31/16 at 13:30 Dextrose (D50w Syringe) 50 ml Q15M PRN IV DECREASED GLUCOSE; Start 10/31/16 at 13:30 Glucagon (Glucagen) 1 mg Q15M PRN IM DECREASED GLUCOSE; Start 10/31/16 at 13:30 Glucose 15 gm 15 gm Q15M PRN BUCCAL DECREASED GLUCOSE; Start 10/31/16 at 13:30 Vancomycin HCl 250 ml @ 125 mls/hr Q12H IVPB Last administered on 11/04/16 14 :10; Admin Dose 125 MLS/HR; Start 11/02/16 at 02:00 Milrinone Lactate 100 ml @ 10.553 mls/ hr TITRATE IV Last administered on 11/02 18:18; Admin Dose 4.925 MLS/HR; Start 11/02/16 at 18:30 Dopamine HCl/ Dextrose 250 ml @ 7.035 mls/ hr TITRATE IV Last administered on 11/02/16 18:20; Admin Dose 3.518 MLS/HR; Start 11/02/16 at 18:30 Albumin Human 250 ml @ 500 mls/hr PRN PRN IV CVP< 8, OR SBP<90 Last administered on 11/03/16 04:15; Admin Dose 500 MLS/HR; Start 11/02/16 at 18:30 Hydromorphone HCl (Dilaudid) 0.2 mg Q1H PRN IV PAIN LEVEL 1-5; Start 11/02/16 at 18:30 Hydromorphone HCl 0.4 mg 0.4 mg Q1H PRN IV PAIN LEVEL 6-10; Start 11/02/16 at 18:30 Magnesium Sulfate/ Dextrose 100 ml @ 100 mls/hr PRN PRN IVPB PENDING LAB VALUE ; Start 11/02/16 at 18:30 Potassium Chloride/Dextrose/ Sodium Chloride (KCl/D5-1/4ns) 1,020 ml @ 60 mls/ hr Q17H IV Last administered on 11/04/16 03:54; Admin Dose 60 MLS/HR; Start at 20:00 Diagnostic Test (Pha) (Accu-Chek) 1 ea Q1H XX Last administered on 11/04/16 16 :17; Admin Dose 1 EA; Start 11/02/16 at 19:30 Dextrose (D50w Syringe) 25 ml Q15M PRN IV Till BS 80 mg/dL or above x2; Start 11/02/16 at 19:30 Dextrose (D50w Syringe) 50 ml Q15M PRN IV Till BS 80 mg/dL or above x2; Start 11/02/16 at 19:30 Morphine Sulfate 3 mg 3 mg Q4H PRN IV PAIN LEVEL 7-10 Last administered on 11/03 08:35; Admin Dose 3 MG; Start 11/02/16 at 22:59 Ondansetron HCl 8 mg/Sodium Chloride 54 ml @ 216 mls/hr Q6H PRN IV NAUSEA AND/ OR VOMITING Last administered on 11/04/16 11:14; Admin Dose 216 MLS/HR; Start 11/02/16 at 23:30 Meropenem (Merrem 500 Mg/ 100 ml (Pmx)) 100 ml @ 200 mls/hr Q8 IVPB Last administered on 11/04/16 14:10; Admin Dose 200 MLS/HR; Start 11/03/16 at 13:30 NANCIE HUGHES MD Nov 04, 2016 16:23
--- NOTE | 2016-11-04 17:41 | PN ---
Date/Time of Note Date/Time of Note DATE: 11/04/16 TIME: 17:37 Assessment/Plan VTE Prophylaxis VTE Prophylaxis Intervention: LMWH Assessment/Plan Chief Complaint/Hosp Course 1. Coronary artery disease, NSTEMI, s/p CABG on 11/02/2016, on pressor 2. Hypotension, on dopamine 3. Diabetes mellitus, on insulin drip 4. H/o of upper GI bleeding with esophagitis on EGD, stable 5. Microcytic anemia. follow up with H/H 6. Seizure disorder. stable 7. Peripheral vascular disease status post foot amputation 8. Case discussed with staff, critical care time 40 minutes PPx- Lovenox Problems: Subjective 24 Hr Interval Summary Constitutional: no complaints Exam/Review of Systems Vital Signs Vitals Vital Signs Date Time Temp Pulse Resp B/P Pulse Ox O2 Delivery O2 Flow Rate FiO2 11/04/16 17:37 2.0 28 11/04/16 16:00 100.0 80 23 127/67 99 Nasal Cannula Intake and Output 11/03/16 11/03/16 11/04/16 15:00 23:00 07:00 Intake Total 907.6 ml 811.7 ml 957 ml Output Total 352 ml 329 ml 177 ml Balance 555.6 ml 482.7 ml 780 ml Exam Constitutional: alert Respiratory: clear to auscultation Cardiovascular: regular rate and rhythm Gastrointestinal: soft, No distended Musculoskeletal: nl extremities to inspection Results Result Diagram: 11/04/16 0455 11/04/16 0455 Results 24 hrs Laboratory Tests Test 11/03/16 18:00 11/03/16 18:10 11/03/16 20:00 11/03/16 21:12 Hematocrit 25.0 L Bedside Glucose 130 125 100 Test 11/03/16 22:44 11/04/16 00:55 11/04/16 01:03 11/04/16 02:54 Bedside Glucose 106 120 132 Vancomycin Level Trough 11.8 Test 11/04/16 03:58 11/04/16 04:41 11/04/16 04:55 11/04/16 06:33 Bedside Glucose 121 116 145 White Blood Count 10.9 #H Red Blood Count 3.40 L Hemoglobin 8.6 L Hematocrit 28.3 L Mean Corpuscular Volume 83.2 Mean Corpuscular Hemoglobin 25.3 L Mean Corpuscular Hemoglobin Concent 30.4 L Red Cell Distribution Width 15.4 H Platelet Count 157 Mean Platelet Volume 9.9 Neutrophils % 82.4 H Lymphocytes % 6.9 L Monocytes % 8.8 Eosinophils % 1.4 Basophils % 0.1 Nucleated Red Blood Cells % 0.0 Neutrophils # 9.0 H Lymphocytes # 0.8 Monocytes # 1.0 H Eosinophils # 0.2 Basophils # 0.0 Nucleated Red Blood Cells # 0.0 Sodium Level 137 Potassium Level 4.4 Chloride Level 104 Carbon Dioxide Level 27 Anion Gap 10 Blood Urea Nitrogen 29 H Creatinine 0.94 Glucose Level 117 Calcium Level 8.3 L Test 11/04/16 08:26 11/04/16 11:08 11/04/16 13:21 11/04/16 15:15 Bedside Glucose 153 130 141 147 Test 11/04/16 16:58 Bedside Glucose 172 Medications Medications Current Medications Lorazepam (Ativan) 0.5 mg Q6H PRN IV ANXIETY; Start 10/28/16 at 04:00 Acetaminophen (Tylenol Supp) 650 mg Q6H PRN [place] PAIN LEVEL 1-3 OR FEVER Last administered on 11/02/16 22:15; Admin Dose 650 MG; Start 10/28/16 at 04:00 Aspirin (Aspirin) 81 mg DAILY PO Last administered on 11/04/16 08:34; Admin Dose 81 MG; Start 10/28/16 at 09:00 Atorvastatin Calcium (Lipitor) 40 mg HS PO Last administered on 11/03/16 20:55 ; Admin Dose 40 MG; Start 10/28/16 at 21:00 Metoprolol Tartrate (Lopressor) 25 mg BID PO Last administered on 11/04/16 08: 35; Admin Dose 25 MG; Start 10/28/16 at 09:00 Morphine Sulfate (morphine) 2 mg Q2H PRN IV FOR NON CARDIAC PAIN (4-10) Last administered on 11/04/16 08:33; Admin Dose 2 MG; Start 10/28/16 at 14:00 Enoxaparin Sodium (Lovenox) 40 mg DAILY SC Last administered on 11/01/16 09:03 ; Admin Dose 40 MG; Start 10/29/16 at 09:00; Status Future Hold Acetaminophen/ Hydrocodone Bitart ([place] (5/325)) 1 tab Q4H PRN PO MODERATE PAIN LEVEL 4-6 Last administered on 10/29/16 00:09; Admin Dose 1 TAB; Start at 00:00 Acetaminophen/ Hydrocodone Bitart ([place] (5/325)) 2 tab Q4H PRN PO SEVERE PAIN LEVEL 7-10; Start 10/29/16 at 00:00 Lactobacillus Acidoph/Bulgaricus (Floranex) 1 tab BID PO Last administered on 08:34; Admin Dose 1 TAB; Start 10/30/16 at 13:00 Mupirocin (Bactroban) 1 applic BID TOP Last administered on 11/04/16 08:34; Admin Dose 1 APPLIC; Start 10/31/16 at 09:00; Stop 11/15/16 at 23:00 Vancomycin HCl (Vanco Iv Per Pharmacy) PER PHARMACY DOSING NOTE XX ; Start 10/31 at 01:00 Lamotrigine (Lamictal) 200 mg BID PO Last administered on 11/04/16 08:34; Admin Dose 200 MG; Start 10/31/16 at 14:30 Miscellaneous Information 1 ea NOTE XX ; Start 10/31/16 at 13:30 Glucose (Glutose) 15 gm Q15M PRN PO DECREASED GLUCOSE; Start 10/31/16 at 13:30 Glucose (Glutose) 22.5 gm Q15M PRN PO DECREASED GLUCOSE; Start 10/31/16 at 13: 30 Dextrose (D50w Syringe) 25 ml Q15M PRN IV DECREASED GLUCOSE; Start 10/31/16 at 13:30 Dextrose (D50w Syringe) 50 ml Q15M PRN IV DECREASED GLUCOSE; Start 10/31/16 at 13:30 Glucagon (Glucagen) 1 mg Q15M PRN IM DECREASED GLUCOSE; Start 10/31/16 at 13:30 Glucose 15 gm 15 gm Q15M PRN BUCCAL DECREASED GLUCOSE; Start 10/31/16 at 13:30 Vancomycin HCl 250 ml @ 125 mls/hr Q12H IVPB Last administered on 11/04/16 14 :10; Admin Dose 125 MLS/HR; Start 11/02/16 at 02:00 Milrinone Lactate 100 ml @ 10.553 mls/ hr TITRATE IV Last administered on 11/02 18:18; Admin Dose 4.925 MLS/HR; Start 11/02/16 at 18:30 Dopamine HCl/ Dextrose 250 ml @ 7.035 mls/ hr TITRATE IV Last administered on 11/02/16 18:20; Admin Dose 3.518 MLS/HR; Start 11/02/16 at 18:30 Albumin Human 250 ml @ 500 mls/hr PRN PRN IV CVP< 8, OR SBP<90 Last administered on 11/03/16 04:15; Admin Dose 500 MLS/HR; Start 11/02/16 at 18:30 Hydromorphone HCl (Dilaudid) 0.2 mg Q1H PRN IV PAIN LEVEL 1-5; Start 11/02/16 at 18:30 Hydromorphone HCl 0.4 mg 0.4 mg Q1H PRN IV PAIN LEVEL 6-10; Start 11/02/16 at 18:30 Magnesium Sulfate/ Dextrose 100 ml @ 100 mls/hr PRN PRN IVPB PENDING LAB VALUE ; Start 11/02/16 at 18:30 Potassium Chloride/Dextrose/ Sodium Chloride (KCl/D5-1/4ns) 1,020 ml @ 60 mls/ hr Q17H IV Last administered on 11/04/16 03:54; Admin Dose 60 MLS/HR; Start at 20:00 Diagnostic Test (Pha) (Accu-Chek) 1 ea Q1H XX Last administered on 11/04/16 16 :33; Admin Dose 1 EA; Start 11/02/16 at 19:30 Dextrose (D50w Syringe) 25 ml Q15M PRN IV Till BS 80 mg/dL or above x2; Start 11/02/16 at 19:30 Dextrose (D50w Syringe) 50 ml Q15M PRN IV Till BS 80 mg/dL or above x2; Start 11/02/16 at 19:30 Morphine Sulfate 3 mg 3 mg Q4H PRN IV PAIN LEVEL 7-10 Last administered on 11/03 08:35; Admin Dose 3 MG; Start 11/02/16 at 22:59 Ondansetron HCl 8 mg/Sodium Chloride 54 ml @ 216 mls/hr Q6H PRN IV NAUSEA AND/ OR VOMITING Last administered on 11/04/16 11:14; Admin Dose 216 MLS/HR; Start 11/02/16 at 23:30 Meropenem (Merrem 500 Mg/ 100 ml (Pmx)) 100 ml @ 200 mls/hr Q8 IVPB Last administered on 11/04/16t 14:10; Admin Dose 200 MLS/HR; Start 11/03/16 at 13:30 GENO MORALES Nov 04, 2016 17:41
--- NOTE | 2016-11-04 20:45 | CONS ---
Date/Time of Note Date/Time of Note DATE: 11/04/16 TIME: 20:43 Assessment/Plan Assessment/Plan Chief Complaint/Hosp Course -Anemia (Stable hgb 8.6 S/P EGD ([facility]) Esophagitis POST BMBX- AT [facility] ASPIRATE - NEG FINAL PATH - N MONITOR BLOOD COUNT CLOSELY NSTEMI Multivessel CAD, POST CABG History of seizure History of alcoholism History of C difficile colitis Diabetes mellitus Problems: Consultation Date/Type/Reason Admit Date/Time Oct 27, 2016 at 22:32 Initial Consult Date 10/28/16 Type of Consultation: hemeon 24 HR Interval Summary Free Text/Dictation all noted no new events Exam/Review of Systems Vital Signs Vitals Vital Signs Date Time Temp Pulse Resp B/P Pulse Ox O2 Delivery O2 Flow Rate FiO2 11/04/16 19:53 96 2.0 27 11/04/16 18:30 79 23 133/74 11/04/16 18:00 Nasal Cannula 11/04/16 17:30 98.6 Intake and Output 11/03/16 11/03/16 11/04/16 15:00 23:00 07:00 Intake Total 907.6 ml 811.7 ml 897 ml Output Total 352 ml 329 ml 177 ml Balance 555.6 ml 482.7 ml 720 ml Exam Constitutional: alert Neck: supple Respiratory: clear to auscultation, diminished breath sounds, No crackles/rales Cardiovascular: nl pulses, other (dressing intact midsternum), regular rate and rhythm Gastrointestinal: soft Extremities: normal pulses Results Result Diagram: 11/04/16 0455 11/04/16 0455 Results 24 hrs Laboratory Tests Test 11/03/16 21:12 11/03/16 22:44 11/04/16 00:55 11/04/16 01:03 Bedside Glucose 100 106 120 Vancomycin Level Trough 11.8 Test 11/04/16 02:54 11/04/16 03:58 11/04/16 04:41 11/04/16 04:55 Bedside Glucose 132 121 116 White Blood Count 10.9 #H Red Blood Count 3.40 L Hemoglobin 8.6 L Hematocrit 28.3 L Mean Corpuscular Volume 83.2 Mean Corpuscular Hemoglobin 25.3 L Mean Corpuscular Hemoglobin Concent 30.4 L Red Cell Distribution Width 15.4 H Platelet Count 157 Mean Platelet Volume 9.9 Neutrophils % 82.4 H Lymphocytes % 6.9 L Monocytes % 8.8 Eosinophils % 1.4 Basophils % 0.1 Nucleated Red Blood Cells % 0.0 Neutrophils # 9.0 H Lymphocytes # 0.8 Monocytes # 1.0 H Eosinophils # 0.2 Basophils # 0.0 Nucleated Red Blood Cells # 0.0 Sodium Level 137 Potassium Level 4.4 Chloride Level 104 Carbon Dioxide Level 27 Anion Gap 10 Blood Urea Nitrogen 29 H Creatinine 0.94 Glucose Level 117 Calcium Level 8.3 L Test 11/04/16 06:33 11/04/16 08:26 11/04/16 11:08 11/04/16 13:21 Bedside Glucose 145 153 130 141 Test 11/04/16 15:15 11/04/16 16:58 11/04/16 18:44 11/04/16 20:17 Bedside Glucose 147 172 196 191 Medications Medications Current Medications Lorazepam (Ativan) 0.5 mg Q6H PRN IV ANXIETY; Start 10/28/16 at 04:00 Acetaminophen (Tylenol Supp) 650 mg Q6H PRN [place] PAIN LEVEL 1-3 OR FEVER Last administered on 11/02/16 22:15; Admin Dose 650 MG; Start 10/28/16 at 04:00 Aspirin (Aspirin) 81 mg DAILY PO Last administered on 11/04/16 08:34; Admin Dose 81 MG; Start 10/28/16 at 09:00 Atorvastatin Calcium (Lipitor) 40 mg HS PO Last administered on 11/03/16 20:55 ; Admin Dose 40 MG; Start 10/28/16 at 21:00 Metoprolol Tartrate (Lopressor) 25 mg BID PO Last administered on 11/04/16 08: 35; Admin Dose 25 MG; Start 10/28/16 at 09:00 Morphine Sulfate (morphine) 2 mg Q2H PRN IV FOR NON CARDIAC PAIN (4-10) Last administered on 11/04/16 17:37; Admin Dose 2 MG; Start 10/28/16 at 14:00 Enoxaparin Sodium (Lovenox) 40 mg DAILY SC Last administered on 11/01/16 09:03 ; Admin Dose 40 MG; Start 10/29/16 at 09:00; Status Future Hold Acetaminophen/ Hydrocodone Bitart ([place] (5/325)) 1 tab Q4H PRN PO MODERATE PAIN LEVEL 4-6 Last administered on 10/29/16 00:09; Admin Dose 1 TAB; Start at 00:00 Acetaminophen/ Hydrocodone Bitart ([place] (5/325)) 2 tab Q4H PRN PO SEVERE PAIN LEVEL 7-10; Start 10/29/16 at 00:00 Lactobacillus Acidoph/Bulgaricus (Floranex) 1 tab BID PO Last administered on 08:34; Admin Dose 1 TAB; Start 10/30/16 at 13:00 Mupirocin (Bactroban) 1 applic BID TOP Last administered on 11/04/16 08:34; Admin Dose 1 APPLIC; Start 10/31/16 at 09:00; Stop 11/15/16 at 23:00 Vancomycin HCl (Vanco Iv Per Pharmacy) PER PHARMACY DOSING NOTE XX ; Start 10/31 at 01:00 Lamotrigine (Lamictal) 200 mg BID PO Last administered on 11/04/16 08:34; Admin Dose 200 MG; Start 10/31/16 at 14:30 Miscellaneous Information 1 ea NOTE XX ; Start 10/31/16 at 13:30 Glucose (Glutose) 15 gm Q15M PRN PO DECREASED GLUCOSE; Start 10/31/16 at 13:30 Glucose (Glutose) 22.5 gm Q15M PRN PO DECREASED GLUCOSE; Start 10/31/16 at 13: 30 Dextrose (D50w Syringe) 25 ml Q15M PRN IV DECREASED GLUCOSE; Start 10/31/16 at 13:30 Dextrose (D50w Syringe) 50 ml Q15M PRN IV DECREASED GLUCOSE; Start 10/31/16 at 13:30 Glucagon (Glucagen) 1 mg Q15M PRN IM DECREASED GLUCOSE; Start 10/31/16 at 13:30 Glucose 15 gm 15 gm Q15M PRN BUCCAL DECREASED GLUCOSE; Start 10/31/16 at 13:30 Vancomycin HCl 250 ml @ 125 mls/hr Q12H IVPB Last administered on 11/04/16 14 :10; Admin Dose 125 MLS/HR; Start 11/02/16 at 02:00 Milrinone Lactate 100 ml @ 10.553 mls/ hr TITRATE IV Last administered on 11/02 18:18; Admin Dose 4.925 MLS/HR; Start 11/02/16 at 18:30 Dopamine HCl/ Dextrose 250 ml @ 7.035 mls/ hr TITRATE IV Last administered on 11/02/16 18:20; Admin Dose 3.518 MLS/HR; Start 11/02/16 at 18:30 Albumin Human 250 ml @ 500 mls/hr PRN PRN IV CVP< 8, OR SBP<90 Last administered on 11/03/16 04:15; Admin Dose 500 MLS/HR; Start 11/02/16 at 18:30 Hydromorphone HCl (Dilaudid) 0.2 mg Q1H PRN IV PAIN LEVEL 1-5; Start 11/02/16 at 18:30 Hydromorphone HCl 0.4 mg 0.4 mg Q1H PRN IV PAIN LEVEL 6-10; Start 11/02/16 at 18:30 Magnesium Sulfate/ Dextrose 100 ml @ 100 mls/hr PRN PRN IVPB PENDING LAB VALUE ; Start 11/02/16 at 18:30 Potassium Chloride/Dextrose/ Sodium Chloride (KCl/D5-1/4ns) 1,020 ml @ 60 mls/ hr Q17H IV Last administered on 11/04/16 03:54; Admin Dose 60 MLS/HR; Start at 20:00 Diagnostic Test (Pha) (Accu-Chek) 1 ea Q1H XX Last administered on 11/04/16 20 :20; Admin Dose 1 EA; Start 11/02/16 at 19:30 Dextrose (D50w Syringe) 25 ml Q15M PRN IV Till BS 80 mg/dL or above x2; Start 11/02/16 at 19:30 Dextrose (D50w Syringe) 50 ml Q15M PRN IV Till BS 80 mg/dL or above x2; Start 11/02/16 at 19:30 Morphine Sulfate 3 mg 3 mg Q4H PRN IV PAIN LEVEL 7-10 Last administered on 11/03 08:35; Admin Dose 3 MG; Start 11/02/16 at 22:59 Ondansetron HCl 8 mg/Sodium Chloride 54 ml @ 216 mls/hr Q6H PRN IV NAUSEA AND/ OR VOMITING Last administered on 11/04/16 17:37; Admin Dose 216 MLS/HR; Start 11/02/16 at 23:30 Meropenem (Merrem 500 Mg/ 100 ml (Pmx)) 100 ml @ 200 mls/hr Q8 IVPB Last administered on 11/04/16t 14:10; Admin Dose 200 MLS/HR; Start 11/03/16 at 13:30 BETO PADILLA MD Nov 04, 2016 20:44
[2016-11-04] MEDS: ATORVASTATIN 40 MG TAB PO SCH (20:50)
--- NOTE | 2016-11-04 21:21 | PN ---
Date/Time of Note Date/Time of Note DATE: 11/04/16 TIME: 21:18 Assessment/Plan VTE Prophylaxis VTE Prophylaxis Intervention: other Lines/Catheters [facility] Cath still in place: No Assessment/Plan Chief Complaint/Hosp Course MPRESSION: 1. Coronary artery disease. 2. Status post myocardial infarction. 3. Anemia. 4. Gastrointestinal bleeding. 5. Seizure disorder. 6. Peripheral vascular disease status post foot amputation. SP CABG CT [address] sxn Pulm toilet Problems: Subjective 24 Hr Interval Summary Gastrointestinal: no complaints Genitourinary: no complaints Musculoskeletal: no complaints Skin: no complaints Exam/Review of Systems Vital Signs Vitals Vital Signs Date Time Temp Pulse Resp B/P Pulse Ox O2 Delivery O2 Flow Rate FiO2 11/04/16 20:00 85 11/04/16 19:53 96 2.0 27 11/04/16 18:30 23 133/74 11/04/16 18:00 Nasal Cannula 11/04/16 17:30 98.6 Intake and Output 11/03/16 11/03/16 11/04/16 14:59 22:59 06:59 Intake Total 784.4 ml 836.5 ml 1056.2 ml Output Total 376 ml 323 ml 202 ml Balance 408.4 ml 513.5 ml 854.2 ml Exam ENMT: nl external ears & nose, nl lips & teeth, nl nasal mucosa & septum Neck: non-tender, supple Respiratory: clear to auscultation, normal air movement Cardiovascular: nl pulses, regular rate and rhythm Results Result Diagram: 11/04/16 0455 11/04/16 0455 Results 24 hrs Laboratory Tests Test 11/03/16 22:44 11/04/16 00:55 11/04/16 01:03 11/04/16 02:54 Bedside Glucose 106 120 132 Vancomycin Level Trough 11.8 Test 11/04/16 03:58 11/04/16 04:41 11/04/16 04:55 11/04/16 06:33 Bedside Glucose 121 116 145 White Blood Count 10.9 #H Red Blood Count 3.40 L Hemoglobin 8.6 L Hematocrit 28.3 L Mean Corpuscular Volume 83.2 Mean Corpuscular Hemoglobin 25.3 L Mean Corpuscular Hemoglobin Concent 30.4 L Red Cell Distribution Width 15.4 H Platelet Count 157 Mean Platelet Volume 9.9 Neutrophils % 82.4 H Lymphocytes % 6.9 L Monocytes % 8.8 Eosinophils % 1.4 Basophils % 0.1 Nucleated Red Blood Cells % 0.0 Neutrophils # 9.0 H Lymphocytes # 0.8 Monocytes # 1.0 H Eosinophils # 0.2 Basophils # 0.0 Nucleated Red Blood Cells # 0.0 Sodium Level 137 Potassium Level 4.4 Chloride Level 104 Carbon Dioxide Level 27 Anion Gap 10 Blood Urea Nitrogen 29 H Creatinine 0.94 Glucose Level 117 Calcium Level 8.3 L Test 11/04/16 08:26 11/04/16 11:08 11/04/16 13:21 11/04/16 15:15 Bedside Glucose 153 130 141 147 Test 11/04/16 16:58 11/04/16 18:44 11/04/16 20:17 11/04/16 20:56 Bedside Glucose 172 196 191 176 Medications Medications Current Medications Lorazepam (Ativan) 0.5 mg Q6H PRN IV ANXIETY; Start 10/28/16 at 04:00 Acetaminophen (Tylenol Supp) 650 mg Q6H PRN [place] PAIN LEVEL 1-3 OR FEVER Last administered on 11/02/16 22:15; Admin Dose 650 MG; Start 10/28/16 at 04:00 Aspirin (Aspirin) 81 mg DAILY PO Last administered on 11/04/16 08:34; Admin Dose 81 MG; Start 10/28/16 at 09:00 Atorvastatin Calcium (Lipitor) 40 mg HS PO Last administered on 11/04/16 20:50 ; Admin Dose 40 MG; Start 10/28/16 at 21:00 Metoprolol Tartrate (Lopressor) 25 mg BID PO Last administered on 11/04/16 20: 51; Admin Dose 25 MG; Start 10/28/16 at 09:00 Morphine Sulfate (morphine) 2 mg Q2H PRN IV FOR NON CARDIAC PAIN (4-10) Last administered on 11/04/16 17:37; Admin Dose 2 MG; Start 10/28/16 at 14:00 Enoxaparin Sodium (Lovenox) 40 mg DAILY SC Last administered on 11/01/16 09:03 ; Admin Dose 40 MG; Start 10/29/16 at 09:00; Status Future Hold Acetaminophen/ Hydrocodone Bitart ([place] (5/325)) 1 tab Q4H PRN PO MODERATE PAIN LEVEL 4-6 Last administered on 10/29/16 00:09; Admin Dose 1 TAB; Start at 00:00 Acetaminophen/ Hydrocodone Bitart ([place] (5/325)) 2 tab Q4H PRN PO SEVERE PAIN LEVEL 7-10; Start 10/29/16 at 00:00 Lactobacillus Acidoph/Bulgaricus (Floranex) 1 tab BID PO Last administered on 20:50; Admin Dose 1 TAB; Start 10/30/16 at 13:00 Mupirocin (Bactroban) 1 applic BID TOP Last administered on 11/04/16 20:51; Admin Dose 1 APPLIC; Start 10/31/16 at 09:00; Stop 11/15/16 at 23:00 Vancomycin HCl (Vanco Iv Per Pharmacy) PER PHARMACY DOSING NOTE XX ; Start 10/31 at 01:00 Lamotrigine (Lamictal) 200 mg BID PO Last administered on 11/04/16 20:50; Admin Dose 200 MG; Start 10/31/16 at 14:30 Miscellaneous Information 1 ea NOTE XX ; Start 10/31/16 at 13:30 Glucose (Glutose) 15 gm Q15M PRN PO DECREASED GLUCOSE; Start 10/31/16 at 13:30 Glucose (Glutose) 22.5 gm Q15M PRN PO DECREASED GLUCOSE; Start 10/31/16 at 13: 30 Dextrose (D50w Syringe) 25 ml Q15M PRN IV DECREASED GLUCOSE; Start 10/31/16 at 13:30 Dextrose (D50w Syringe) 50 ml Q15M PRN IV DECREASED GLUCOSE; Start 10/31/16 at 13:30 Glucagon (Glucagen) 1 mg Q15M PRN IM DECREASED GLUCOSE; Start 10/31/16 at 13:30 Glucose 15 gm 15 gm Q15M PRN BUCCAL DECREASED GLUCOSE; Start 10/31/16 at 13:30 Vancomycin HCl 250 ml @ 125 mls/hr Q12H IVPB Last administered on 11/04/16 14 :10; Admin Dose 125 MLS/HR; Start 11/02/16 at 02:00 Milrinone Lactate 100 ml @ 10.553 mls/ hr TITRATE IV Last administered on 11/02 18:18; Admin Dose 4.925 MLS/HR; Start 11/02/16 at 18:30 Dopamine HCl/ Dextrose 250 ml @ 7.035 mls/ hr TITRATE IV Last administered on 11/02/16 18:20; Admin Dose 3.518 MLS/HR; Start 11/02/16 at 18:30 Albumin Human 250 ml @ 500 mls/hr PRN PRN IV CVP< 8, OR SBP<90 Last administered on 11/03/16 04:15; Admin Dose 500 MLS/HR; Start 11/02/16 at 18:30 Hydromorphone HCl (Dilaudid) 0.2 mg Q1H PRN IV PAIN LEVEL 1-5; Start 11/02/16 at 18:30 Hydromorphone HCl 0.4 mg 0.4 mg Q1H PRN IV PAIN LEVEL 6-10; Start 11/02/16 at 18:30 Magnesium Sulfate/ Dextrose 100 ml @ 100 mls/hr PRN PRN IVPB PENDING LAB VALUE ; Start 11/02/16 at 18:30 Potassium Chloride/Dextrose/ Sodium Chloride (KCl/D5-1/4ns) 1,020 ml @ 60 mls/ hr Q17H IV Last administered on 11/04/16 03:54; Admin Dose 60 MLS/HR; Start at 20:00 Diagnostic Test (Pha) (Accu-Chek) 1 ea Q1H XX Last administered on 11/04/16 20 :57; Admin Dose 1 EA; Start 11/02/16 at 19:30 Dextrose (D50w Syringe) 25 ml Q15M PRN IV Till BS 80 mg/dL or above x2; Start 11/02/16 at 19:30 Dextrose (D50w Syringe) 50 ml Q15M PRN IV Till BS 80 mg/dL or above x2; Start 11/02/16 at 19:30 Morphine Sulfate 3 mg 3 mg Q4H PRN IV PAIN LEVEL 7-10 Last administered on 11/03 08:35; Admin Dose 3 MG; Start 11/02/16 at 22:59 Ondansetron HCl 8 mg/Sodium Chloride 54 ml @ 216 mls/hr Q6H PRN IV NAUSEA AND/ OR VOMITING Last administered on 11/04/16 17:37; Admin Dose 216 MLS/HR; Start 11/02/16 at 23:30 Meropenem (Merrem 500 Mg/ 100 ml (Pmx)) 100 ml @ 200 mls/hr Q8 IVPB Last administered on 11/04/16t 14:10; Admin Dose 200 MLS/HR; Start 11/03/16 at 13:30 JOAN WATTS MD Nov 04, 2016 21:21
[2016-11-04] MEDS: INSULIN REGULAR, HUMAN 100 UNIT in SOD CHLORIDE 0.9% 99 ML IV SCH ×2 (23:12)
[2016-11-05] VITALS (24 sets, daily range): BP systolic 96–138; BP diastolic 56–82; PULSE 71–80; RESP 16–27
[2016-11-05] MEDS: ACCU-CHEK XX SCH ×18 (01:11→18:30)
[2016-11-05] MEDS: VANCOMYCIN 1 GM in NS 250 ML IVPB SCH ×2 (02:01→14:27)
[2016-11-05 04:29] LABS: ADD SCAN DIFF NO
[2016-11-05 04:45] LABS: BASOPHILS % 0.2 % (0.0-2.0); EOSINOPHILS # 0.1 10^3/ul (0.0-0.5); EOSINOPHILS % 1.6 % (0.0-7.0); HEMATOCRIT 26.2 % (42.0-52.0); HEMOGLOBIN 8.1 g/dl (14.0-18.0); LYMPHOCYTES # 1.1 10^3/ul (0.8-2.9); LYMPHOCYTES % 11.7 % (15.0-51.0); MEAN CORPUSCULAR HEMOGLOBIN 25.8 pg (29.0-33.0); MEAN CORPUSCULAR HGB CONC 30.9 g/dl (32.0-37.0); MEAN CORPUSCULAR VOLUME 83.4 fl (82.0-101.0); MEAN PLATELET VOLUME 9.7 fl (7.4-10.4); MONOCYTE # 0.9 10^3/ul (0.3-0.9); MONOCYTES % 9.7 % (0.0-11.0); NEUTROPHIL # 6.8 10^3/ul (1.6-7.5); NEUTROPHILS % 76.5 % (39.0-77.0); PLATELET COUNT 159 10^3/UL (140-415); RED BLOOD COUNT 3.14 10^6/ul (4.70-6.10); RED CELL DISTRIBUTION WIDTH 15.2 % (11.5-14.5); WHITE BLOOD COUNT 8.9 10^3/ul (4.8-10.8)
[2016-11-05 04:56] LABS: POTASSIUM 4.5 mmol/L (3.5-5.1)
[2016-11-05 04:59] LABS: CREATININE 0.93 mg/dl (0.61-1.24)
[2016-11-05 05:00] LABS: CALCIUM 8.1 mg/dl (8.4-10.2)
[2016-11-05] MEDS: MEROPENEM 500 MG/100 ML (PMX) 100 ML IVPB SCH ×3 (05:40→21:45)
[2016-11-05] MEDS: ONDANSETRON INJ 8 MG in SOD CHLORIDE 0.9% 50 ML IV PRN ×2 (06:41→15:51)
[2016-11-05] MEDS: ASPIRIN 81 MG TAB PO SCH (09:39)
[2016-11-05] MEDS: LACTOBACILLUS CHEW TAB PO SCH ×2 (09:39→21:40)
[2016-11-05] MEDS: METOPROLOL 25 MG TAB PO SCH ×2 (09:40→21:40)
[2016-11-05] MEDS: LAMOTRIGINE 100 MG TAB PO SCH ×2 (09:40→21:39)
[2016-11-05] MEDS: MUPIROCIN 2% 22 GM OINT TOP SCH ×2 (09:40→21:39)
--- NOTE | 2016-11-05 11:40 | PN ---
Date/Time of Note Date/Time of Note DATE: 11/05/16 TIME: 11:39 Assessment/Plan Lines/Catheters IV Catheter Type (from Nrsg): Central Line Guerra in Place (from Nrsg): Yes Assessment/Plan Chief Complaint/Hosp Course MPRESSION: 1. Coronary artery disease. 2. Status post myocardial infarction. 3. Anemia. 4. Gastrointestinal bleeding. 5. Seizure disorder. 6. Peripheral vascular disease status post foot amputation. SP CABG will DC CT Pulm toilet Problems: Subjective 24 Hr Interval Summary Constitutional: improved Pain Control: mild Exam/Review of Systems Vital Signs Vitals Vital Signs Date Time Temp Pulse Resp B/P Pulse Ox O2 Delivery O2 Flow Rate FiO2 11/05/16 10:00 76 21 111/62 99 Nasal Cannula 2.0 11/05/16 08:00 98.6 11/05/16 05:29 27 Intake and Output 11/04/16 11/04/16 11/05/16 15:00 23:00 07:00 Intake Total 1273.0 ml 1051.0 ml 848 ml Output Total 362 ml 360 ml 360 ml Balance 911.0 ml 691.0 ml 488 ml Exam ENMT: mucosa pink and moist, nl external ears & nose, nl lips & teeth, nl nasal mucosa & septum Neck: non-tender, supple Respiratory: clear to auscultation, normal air movement Cardiovascular: nl pulses, regular rate and rhythm Results Result Diagram: 11/05/1633911/05/16339 JOAN WATTS MD Nov 05, 2016 11:40
--- NOTE | 2016-11-05 12:51 | PN ---
Date/Time of Note Date/Time of Note DATE: 11/05/16 TIME: 12:50 Assessment/Plan VTE Prophylaxis VTE Prophylaxis Intervention: LMWH Assessment/Plan Chief Complaint/Hosp Course 1. Coronary artery disease, NSTEMI, s/p CABG on 11/02/2016 -[address] CT today 2. Hypotension-resolved 3. Diabetes mellitus, on insulin drip 4. H/o of upper GI bleeding with esophagitis on EGD, stable 5. Microcytic anemia. follow up with H/H 6. Seizure disorder. stable 7. Peripheral vascular disease status post foot amputation PPx- Lovenox Problems: Subjective 24 Hr Interval Summary Constitutional: no complaints Exam/Review of Systems Vital Signs Vitals Vital Signs Date Time Temp Pulse Resp B/P Pulse Ox O2 Delivery O2 Flow Rate FiO2 11/05/16 10:00 76 21 111/62 99 Nasal Cannula 2.0 11/05/16 08:00 98.6 11/05/16 05:29 27 Intake and Output 11/04/16 11/04/16 11/05/16 15:00 23:00 07:00 Intake Total 1273.0 ml 1051.0 ml 848 ml Output Total 362 ml 360 ml 360 ml Balance 911.0 ml 691.0 ml 488 ml Exam Constitutional: alert Respiratory: clear to auscultation Cardiovascular: regular rate and rhythm Gastrointestinal: soft, No distended Musculoskeletal: nl extremities to inspection Results Result Diagram: 11/05/16 0340 11/05/16 0340 Results 24 hrs Laboratory Tests Test 11/04/16 13:21 11/04/16 15:15 11/04/16 16:58 11/04/16 18:44 Bedside Glucose 141 147 172 196 Test 11/04/16 20:17 11/04/16 20:56 11/04/16 21:54 11/04/16 23:02 Bedside Glucose 191 176 155 208 Test 11/04/16 23:44 11/05/16 01:10 11/05/16 01:56 11/05/16 03:10 Bedside Glucose 127 124 139 126 Test 11/05/16 03:40 11/05/16 03:53 11/05/16 06:20 11/05/16 09:05 White Blood Count 8.9 Red Blood Count 3.14 L Hemoglobin 8.1 L Hematocrit 26.2 L Mean Corpuscular Volume 83.4 Mean Corpuscular Hemoglobin 25.8 L Mean Corpuscular Hemoglobin Concent 30.9 L Red Cell Distribution Width 15.2 H Platelet Count 159 Mean Platelet Volume 9.7 Neutrophils % 76.5 Lymphocytes % 11.7 L Monocytes % 9.7 Eosinophils % 1.6 Basophils % 0.2 Nucleated Red Blood Cells % 0.0 Neutrophils # 6.8 Lymphocytes # 1.1 Monocytes # 0.9 Eosinophils # 0.1 Basophils # 0.0 Nucleated Red Blood Cells # 0.0 Sodium Level 136 Potassium Level 4.5 Chloride Level 104 Carbon Dioxide Level 27 Anion Gap 10 Blood Urea Nitrogen 30 H Creatinine 0.93 Glucose Level 119 Calcium Level 8.1 L Bedside Glucose 131 113 120 Test 11/05/16 10:49 Bedside Glucose 200 Medications Medications Current Medications Lorazepam (Ativan) 0.5 mg Q6H PRN IV ANXIETY; Start 10/28/16 at 04:00 Acetaminophen (Tylenol Supp) 650 mg Q6H PRN [place] PAIN LEVEL 1-3 OR FEVER Last administered on 11/02/16 22:15; Admin Dose 650 MG; Start 10/28/16 at 04:00 Aspirin (Aspirin) 81 mg DAILY PO Last administered on 11/05/16 09:39; Admin Dose 81 MG; Start 10/28/16 at 09:00 Atorvastatin Calcium (Lipitor) 40 mg HS PO Last administered on 11/04/16 20:50 ; Admin Dose 40 MG; Start 10/28/16 at 21:00 Metoprolol Tartrate (Lopressor) 25 mg BID PO Last administered on 11/05/16 09: 40; Admin Dose 25 MG; Start 10/28/16 at 09:00 Morphine Sulfate (morphine) 2 mg Q2H PRN IV FOR NON CARDIAC PAIN (4-10) Last administered on 11/04/16 21:59; Admin Dose 2 MG; Start 10/28/16 at 14:00 Enoxaparin Sodium (Lovenox) 40 mg DAILY SC Last administered on 11/01/16 09:03 ; Admin Dose 40 MG; Start 10/29/16 at 09:00; Status Future Hold Acetaminophen/ Hydrocodone Bitart ([place] (5/325)) 1 tab Q4H PRN PO MODERATE PAIN LEVEL 4-6 Last administered on 10/29/16 00:09; Admin Dose 1 TAB; Start at 00:00 Acetaminophen/ Hydrocodone Bitart ([place] (5/325)) 2 tab Q4H PRN PO SEVERE PAIN LEVEL 7-10; Start 10/29/16 at 00:00 Lactobacillus Acidoph/Bulgaricus (Floranex) 1 tab BID PO Last administered on 09:39; Admin Dose 1 TAB; Start 10/30/16 at 13:00 Mupirocin (Bactroban) 1 applic BID TOP Last administered on 11/05/16 09:40; Admin Dose 1 APPLIC; Start 10/31/16 at 09:00; Stop 11/15/16 at 23:00 Vancomycin HCl (Vanco Iv Per Pharmacy) PER PHARMACY DOSING NOTE XX ; Start 10/31 at 01:00 Lamotrigine (Lamictal) 200 mg BID PO Last administered on 11/05/16 09:40; Admin Dose 200 MG; Start 10/31/16 at 14:30 Miscellaneous Information 1 ea NOTE XX ; Start 10/31/16 at 13:30 Glucose (Glutose) 15 gm Q15M PRN PO DECREASED GLUCOSE; Start 10/31/16 at 13:30 Glucose (Glutose) 22.5 gm Q15M PRN PO DECREASED GLUCOSE; Start 10/31/16 at 13: 30 Dextrose (D50w Syringe) 25 ml Q15M PRN IV DECREASED GLUCOSE; Start 10/31/16 at 13:30 Dextrose (D50w Syringe) 50 ml Q15M PRN IV DECREASED GLUCOSE; Start 10/31/16 at 13:30 Glucagon (Glucagen) 1 mg Q15M PRN IM DECREASED GLUCOSE; Start 10/31/16 at 13:30 Glucose 15 gm 15 gm Q15M PRN BUCCAL DECREASED GLUCOSE; Start 10/31/16 at 13:30 Vancomycin HCl 250 ml @ 125 mls/hr Q12H IVPB Last administered on 11/05/16 02 :01; Admin Dose 125 MLS/HR; Start 11/02/16 at 02:00 Milrinone Lactate 100 ml @ 10.553 mls/ hr TITRATE IV Last administered on 11/02 18:18; Admin Dose 4.925 MLS/HR; Start 11/02/16 at 18:30 Dopamine HCl/ Dextrose 250 ml @ 7.035 mls/ hr TITRATE IV Last administered on 11/02/16 18:20; Admin Dose 3.518 MLS/HR; Start 11/02/16 at 18:30 Albumin Human 250 ml @ 500 mls/hr PRN PRN IV CVP< 8, OR SBP<90 Last administered on 11/03/16 04:15; Admin Dose 500 MLS/HR; Start 11/02/16 at 18:30 Hydromorphone HCl (Dilaudid) 0.2 mg Q1H PRN IV PAIN LEVEL 1-5; Start 11/02/16 at 18:30 Hydromorphone HCl 0.4 mg 0.4 mg Q1H PRN IV PAIN LEVEL 6-10; Start 11/02/16 at 18:30 Magnesium Sulfate/ Dextrose 100 ml @ 100 mls/hr PRN PRN IVPB PENDING LAB VALUE ; Start 11/02/16 at 18:30 Potassium Chloride/Dextrose/ Sodium Chloride (KCl/D5-1/4ns) 1,020 ml @ 60 mls/ hr Q17H IV Last administered on 11/04/16 21:49; Admin Dose 60 MLS/HR; Start at 20:00 Diagnostic Test (Pha) (Accu-Chek) 1 ea Q1H XX Last administered on 11/05/16 09 :25; Admin Dose 1 EA; Start 11/02/16 at 19:30 Dextrose (D50w Syringe) 25 ml Q15M PRN IV Till BS 80 mg/dL or above x2; Start 11/02/16 at 19:30 Dextrose (D50w Syringe) 50 ml Q15M PRN IV Till BS 80 mg/dL or above x2; Start 11/02/16 at 19:30 Morphine Sulfate 3 mg 3 mg Q4H PRN IV PAIN LEVEL 7-10 Last administered on 11/03 08:35; Admin Dose 3 MG; Start 11/02/16 at 22:59 Ondansetron HCl 8 mg/Sodium Chloride 54 ml @ 216 mls/hr Q6H PRN IV NAUSEA AND/ OR VOMITING Last administered on 11/05/16 06:41; Admin Dose 216 MLS/HR; Start 11/02/16 at 23:30 Meropenem (Merrem 500 Mg/ 100 ml (Pmx)) 100 ml @ 200 mls/hr Q8 IVPB Last administered on 11/05/16t 05:40; Admin Dose 200 MLS/HR; Start 11/03/16 at 13:30 GENO MORALES Nov 05, 2016 12:50
[2016-11-05] MEDS: morphine 2 MG INJ IV PRN ×2 (14:20→23:32)
--- NOTE | 2016-11-05 14:59 | PN ---
DATE: 11/05/2016 SUBJECTIVE: No acute events. The patient is alert, sitting up in a chair. Looks comfortable, no f mini. VITAL SIGNS: Temperature 98.9, pulse 71, respirations 17, blood pressure 115/67, saturation 99 on 2 liters nasal cannula. WBC today 8.9, H and H 8.1 and 26.2, platelets 159, no shift, no bands. BUN 30, creatinine 0.93. MICROBIOLOGY: Blood and urine culture from 11/03/2016 negative. Stool for C. diff negative. INDWELLINGS: Right IJ [place] with introducer, chest tube, Guerra. ANTIMICROBIALS: The patient is on: 1. IV vancomycin. 2. Meropenem. PHYSICAL EXAMINATION: GENERAL: This is a fragile well-developed elderly man who is alert, in no distress. HEENT: Head atraumatic, normocephalic. Sclerae anicteric. Buccal mucosa pink. NECK: Supple. CHEST: Rise symmetrical. Breath sounds diminished to bases. HEART: S1, S2. ABDOMEN: Soft, bowel tones present. EXTREMITIES: Without cyanosis. ASSESSMENT: 1. Systemic inflammatory response syndrome with resolving fevers. 2. Healthcare-associated pneumonia. 3. Methicillin-resistant Staphylococcus aureus nares colonization. 4. Coronary artery disease status post coronary artery bypass graft on 11/02/2016. 5. Diabetes. 6. Hypertension. PLAN: The patient remains stable, overall improving. Continue present care, antibiotics. Follow r ecommendations of consultants. Dictated By: CINDY PINA EXECUTIVE SERVICES ADMINISTRATOR for LISSETH RAND/NTS Conf#: [id number] DID#: [id number]
--- NOTE | 2016-11-05 15:28 | CONS ---
Date/Time of Note Date/Time of Note DATE: 11/05/16 TIME: 15:26 Assessment/Plan Assessment/Plan Chief Complaint/Hosp Course Assessment: Status post NSTEMI Coronary artery disease - status post CABG 11/02/2016 (CORTEZ-prox LAD-distal LAD, SVG-OM1, SVG-OM2-PDA, SVG-OM3) Acute on chronic diastolic heart failure - diuresed and thoracentesis at [facility], now euvolemic Seizure disorder - initial presentation was seizure Diabetes mellitus Anemia - bone marrow biopsy results pending Esophagitis on EGD Status post right transmetatarsal amputation Healthcare-associated pneumonia - per infectious disease Recommendations: -pre-operative echocardiogram showed LVEF 55%, basal inferolateral and inferior hypokinesis -continue aspirin -continue atorvastatin -continue metoprolol 25mg BID -monitor volume status, spot dose diuretics as needed -post-operative care per surgery Problems: Consultation Date/Type/Reason Admit Date/Time Oct 27, 2016 at 22:32 Initial Consult Date 10/28/16 Type of Consultation: Cardiology 24 HR Interval Summary Free Text/Dictation No acute events. Chest tube discontinued. Detailed Summary Additional Comments 14 point review of systems without changes. Exam/Review of Systems Vital Signs Vitals Vital Signs Date Time Temp Pulse Resp B/P Pulse Ox O2 Delivery O2 Flow Rate FiO2 11/05/16 13:00 71 17 115/67 99 Nasal Cannula 2.0 11/05/16 12:00 98.9 11/05/16 05:29 27 Intake and Output 11/04/16 11/04/16 11/05/16 15:00 23:00 07:00 Intake Total 1273.0 ml 1051.0 ml 848 ml Output Total 362 ml 360 ml 360 ml Balance 911.0 ml 691.0 ml 488 ml Exam Constitutional: Alert, no distress Psych: Nl mood/affect Head: atraumatic, normocephalic Eyes: nl conjunctiva, nl lids Neck: non-tender, supple, No jvd Respiratory: clear to auscultation, No crackles/rales Cardiovascular: regular rate and rhythm Gastrointestinal: non-tender, soft Extremities: No clubbing, No cyanosis, No edema Neurological: Nl mental status, Nl speech Results Result Diagram: 11/05/16 0340 11/05/16 0340 Results 24 hrs Laboratory Tests Test 11/04/16 16:58 11/04/16 18:44 11/04/16 20:17 11/04/16 20:56 Bedside Glucose 172 196 191 176 Test 11/04/16 21:54 11/04/16 23:02 11/04/16 23:44 11/05/16 01:10 Bedside Glucose 155 208 127 124 Test 11/05/16 01:56 11/05/16 03:10 11/05/16 03:40 11/05/16 03:53 Bedside Glucose 139 126 131 White Blood Count 8.9 Red Blood Count 3.14 L Hemoglobin 8.1 L Hematocrit 26.2 L Mean Corpuscular Volume 83.4 Mean Corpuscular Hemoglobin 25.8 L Mean Corpuscular Hemoglobin Concent 30.9 L Red Cell Distribution Width 15.2 H Platelet Count 159 Mean Platelet Volume 9.7 Neutrophils % 76.5 Lymphocytes % 11.7 L Monocytes % 9.7 Eosinophils % 1.6 Basophils % 0.2 Nucleated Red Blood Cells % 0.0 Neutrophils # 6.8 Lymphocytes # 1.1 Monocytes # 0.9 Eosinophils # 0.1 Basophils # 0.0 Nucleated Red Blood Cells # 0.0 Sodium Level 136 Potassium Level 4.5 Chloride Level 104 Carbon Dioxide Level 27 Anion Gap 10 Blood Urea Nitrogen 30 H Creatinine 0.93 Glucose Level 119 Calcium Level 8.1 L Test 11/05/16 06:20 11/05/16 09:05 11/05/16 10:49 11/05/16 13:24 Bedside Glucose 113 120 200 247 H Medications Medications Current Medications Lorazepam (Ativan) 0.5 mg Q6H PRN IV ANXIETY; Start 10/28/16 at 04:00 Acetaminophen (Tylenol Supp) 650 mg Q6H PRN AR PAIN LEVEL 1-3 OR FEVER Last administered on 11/02/16 22:15; Admin Dose 650 MG; Start 10/28/16 at 04:00 Aspirin (Aspirin) 81 mg DAILY PO Last administered on 11/05/16 09:39; Admin Dose 81 MG; Start 10/28/16 at 09:00 Atorvastatin Calcium (Lipitor) 40 mg HS PO Last administered on 11/04/16 20:50 ; Admin Dose 40 MG; Start 10/28/16 at 21:00 Metoprolol Tartrate (Lopressor) 25 mg BID PO Last administered on 11/05/16 09: 40; Admin Dose 25 MG; Start 10/28/16 at 09:00 Morphine Sulfate (morphine) 2 mg Q2H PRN IV FOR NON CARDIAC PAIN (4-10) Last administered on 11/05/16 14:20; Admin Dose 2 MG; Start 10/28/16 at 14:00 Enoxaparin Sodium (Lovenox) 40 mg DAILY SC Last administered on 11/01/16 09:03 ; Admin Dose 40 MG; Start 10/29/16 at 09:00; Status Future Hold Acetaminophen/ Hydrocodone Bitart ([place] (5/325)) 1 tab Q4H PRN PO MODERATE PAIN LEVEL 4-6 Last administered on 10/29/16 00:09; Admin Dose 1 TAB; Start at 00:00 Acetaminophen/ Hydrocodone Bitart ([place] (5/325)) 2 tab Q4H PRN PO SEVERE PAIN LEVEL 7-10; Start 10/29/16 at 00:00 Lactobacillus Acidoph/Bulgaricus (Floranex) 1 tab BID PO Last administered on 09:39; Admin Dose 1 TAB; Start 10/30/16 at 13:00 Mupirocin (Bactroban) 1 applic BID TOP Last administered on 11/05/16 09:40; Admin Dose 1 APPLIC; Start 10/31/16 at 09:00; Stop 11/15/16 at 23:00 Vancomycin HCl (Vanco Iv Per Pharmacy) PER PHARMACY DOSING NOTE XX ; Start 10/31 at 01:00 Lamotrigine (Lamictal) 200 mg BID PO Last administered on 11/05/16 09:40; Admin Dose 200 MG; Start 10/31/16 at 14:30 Miscellaneous Information 1 ea NOTE XX ; Start 10/31/16 at 13:30 Glucose (Glutose) 15 gm Q15M PRN PO DECREASED GLUCOSE; Start 10/31/16 at 13:30 Glucose (Glutose) 22.5 gm Q15M PRN PO DECREASED GLUCOSE; Start 10/31/16 at 13: 30 Dextrose (D50w Syringe) 25 ml Q15M PRN IV DECREASED GLUCOSE; Start 10/31/16 at 13:30 Dextrose (D50w Syringe) 50 ml Q15M PRN IV DECREASED GLUCOSE; Start 10/31/16 at 13:30 Glucagon (Glucagen) 1 mg Q15M PRN IM DECREASED GLUCOSE; Start 10/31/16 at 13:30 Glucose 15 gm 15 gm Q15M PRN BUCCAL DECREASED GLUCOSE; Start 10/31/16 at 13:30 Vancomycin HCl 250 ml @ 125 mls/hr Q12H IVPB Last administered on 11/05/16 14 :27; Admin Dose 125 MLS/HR; Start 11/02/16 at 02:00 Milrinone Lactate 100 ml @ 10.553 mls/ hr TITRATE IV Last administered on 11/02 18:18; Admin Dose 4.925 MLS/HR; Start 11/02/16 at 18:30 Dopamine HCl/ Dextrose 250 ml @ 7.035 mls/ hr TITRATE IV Last administered on 11/02/16 18:20; Admin Dose 3.518 MLS/HR; Start 11/02/16 at 18:30 Albumin Human 250 ml @ 500 mls/hr PRN PRN IV CVP< 8, OR SBP<90 Last administered on 11/03/16 04:15; Admin Dose 500 MLS/HR; Start 11/02/16 at 18:30 Hydromorphone HCl (Dilaudid) 0.2 mg Q1H PRN IV PAIN LEVEL 1-5; Start 11/02/16 at 18:30 Hydromorphone HCl 0.4 mg 0.4 mg Q1H PRN IV PAIN LEVEL 6-10; Start 11/02/16 at 18:30 Magnesium Sulfate/ Dextrose 100 ml @ 100 mls/hr PRN PRN IVPB PENDING LAB VALUE ; Start 11/02/16 at 18:30 Potassium Chloride/Dextrose/ Sodium Chloride (KCl/D5-1/4ns) 1,020 ml @ 60 mls/ hr Q17H IV Last administered on 11/04/16 21:49; Admin Dose 60 MLS/HR; Start at 20:00 Diagnostic Test (Pha) (Accu-Chek) 1 ea Q1H XX Last administered on 11/05/16 13 :25; Admin Dose 1 EA; Start 11/02/16 at 19:30 Dextrose (D50w Syringe) 25 ml Q15M PRN IV Till BS 80 mg/dL or above x2; Start 11/02/16 at 19:30 Dextrose (D50w Syringe) 50 ml Q15M PRN IV Till BS 80 mg/dL or above x2; Start 11/02/16 at 19:30 Morphine Sulfate 3 mg 3 mg Q4H PRN IV PAIN LEVEL 7-10 Last administered on 11/03 08:35; Admin Dose 3 MG; Start 11/02/16 at 22:59 Ondansetron HCl 8 mg/Sodium Chloride 54 ml @ 216 mls/hr Q6H PRN IV NAUSEA AND/ OR VOMITING Last administered on 11/05/16 06:41; Admin Dose 216 MLS/HR; Start 11/02/16 at 23:30 Meropenem (Merrem 500 Mg/ 100 ml (Pmx)) 100 ml @ 200 mls/hr Q8 IVPB Last administered on 11/05/16 14:28; Admin Dose 200 MLS/HR; Start 11/03/16 at 13:30 Insulin Glargine (Lantus) 15 unit DAILY@20 SC ; Start 11/05/16 at 20:00; Status UNV Diagnostic Test (Pha) (Accu-Chek) 1 XX ; Start 11/06/16 at 02:00; Status UNV NANCIE HUGHES MD Nov 05, 2016 15:28
[2016-11-05] MEDS: POTASSIUM CHLORIDE 40 MEQ in DEXTROSE 5%-0.225% NACL 1,000 ML IV SCH (15:51)
[2016-11-05] MEDS: INSULIN ASPART [NOVOLOG] 3 ML PEN SC SCH ×3 (17:53→21:00)
[2016-11-05] MEDS: INSULIN GLARGINE [LANtus] 3 ML PEN SC SCH (20:07)
[2016-11-05] MEDS: ATORVASTATIN 40 MG TAB PO SCH (21:40)
--- NOTE | 2016-11-05 23:01 | CONS ---
Date/Time of Note Date/Time of Note DATE: 11/05/16 TIME: 22:59 Assessment/Plan Assessment/Plan Chief Complaint/Hosp Course Anemia S/P EGD ([facility]) Esophagitis POST BMBX- AT SO FINAL PATH - neg MONITOR BLOOD COUNT CLOSELY NSTEMI Multivessel CAD History of seizure History of alcoholism History of C difficile colitis Diabetes mellitus Problems: Consultation Date/Type/Reason Admit Date/Time Oct 27, 2016 at 22:32 Initial Consult Date 10/28/16 Type of Consultation: hemeonc 24 HR Interval Summary Free Text/Dictation No acute events. Chest tube discontinued. count stable Exam/Review of Systems Vital Signs Vitals Vital Signs Date Time Temp Pulse Resp B/P Pulse Ox O2 Delivery O2 Flow Rate FiO2 11/05/16 20:22 2.0 11/05/16 20:00 73 11/05/16 18:00 18 111/64 95 Nasal Cannula 11/05/16 16:00 98.7 11/05/16 05:29 27 Intake and Output 11/04/16 11/04/16 11/05/16 15:00 23:00 07:00 Intake Total 1273.0 ml 1051.0 ml 848 ml Output Total 362 ml 360 ml 360 ml Balance 911.0 ml 691.0 ml 488 ml Exam Exam Constitutional: Alert, no distress Psych: Nl mood/affect Head: atraumatic, normocephalic Eyes: nl conjunctiva, nl lids Neck: non-tender, supple, No jvd Respiratory: clear to auscultation, No crackles/rales Cardiovascular: regular rate and rhythm Gastrointestinal: non-tender, soft Extremities: No clubbing, No cyanosis, No edema Neurological: Nl mental status, Nl speech Results Result Diagram: 11/05/16 0340 11/05/16 0340 Results 24 hrs Laboratory Tests Test 11/04/16 23:02 11/04/16 23:44 11/05/16 01:10 11/05/16 01:56 Bedside Glucose 208 127 124 139 Test 11/05/16 03:10 11/05/16 03:40 11/05/16 03:53 11/05/16 06:20 Bedside Glucose 126 131 113 White Blood Count 8.9 Red Blood Count 3.14 L Hemoglobin 8.1 L Hematocrit 26.2 L Mean Corpuscular Volume 83.4 Mean Corpuscular Hemoglobin 25.8 L Mean Corpuscular Hemoglobin Concent 30.9 L Red Cell Distribution Width 15.2 H Platelet Count 159 Mean Platelet Volume 9.7 Neutrophils % 76.5 Lymphocytes % 11.7 L Monocytes % 9.7 Eosinophils % 1.6 Basophils % 0.2 Nucleated Red Blood Cells % 0.0 Neutrophils # 6.8 Lymphocytes # 1.1 Monocytes # 0.9 Eosinophils # 0.1 Basophils # 0.0 Nucleated Red Blood Cells # 0.0 Sodium Level 136 Potassium Level 4.5 Chloride Level 104 Carbon Dioxide Level 27 Anion Gap 10 Blood Urea Nitrogen 30 H Creatinine 0.93 Glucose Level 119 Calcium Level 8.1 L Test 11/05/16 09:05 11/05/16 10:49 11/05/16 13:24 11/05/16 17:29 Bedside Glucose 120 200 247 H 205 Test 11/05/16 21:37 Bedside Glucose 114 Medications Medications Current Medications Lorazepam (Ativan) 0.5 mg Q6H PRN IV ANXIETY; Start 10/28/16 at 04:00 Acetaminophen (Tylenol Supp) 650 mg Q6H PRN OR PAIN LEVEL 1-3 OR FEVER Last administered on 11/02/16 22:15; Admin Dose 650 MG; Start 10/28/16 at 04:00 Aspirin (Aspirin) 81 mg DAILY PO Last administered on 11/05/16 09:39; Admin Dose 81 MG; Start 10/28/16 at 09:00 Atorvastatin Calcium (Lipitor) 40 mg HS PO Last administered on 11/05/16 21:40 ; Admin Dose 40 MG; Start 10/28/16 at 21:00 Metoprolol Tartrate (Lopressor) 25 mg BID PO Last administered on 11/05/16 21: 40; Admin Dose 25 MG; Start 10/28/16 at 09:00 Morphine Sulfate (morphine) 2 mg Q2H PRN IV FOR NON CARDIAC PAIN (4-10) Last administered on 11/05/16 14:20; Admin Dose 2 MG; Start 10/28/16 at 14:00 Enoxaparin Sodium (Lovenox) 40 mg DAILY SC Last administered on 11/01/16 09:03 ; Admin Dose 40 MG; Start 10/29/16 at 09:00; Status Future Hold Acetaminophen/ Hydrocodone Bitart ([place] (5/325)) 1 tab Q4H PRN PO MODERATE PAIN LEVEL 4-6 Last administered on 10/29/16 00:09; Admin Dose 1 TAB; Start at 00:00 Acetaminophen/ Hydrocodone Bitart ([place] (5/325)) 2 tab Q4H PRN PO SEVERE PAIN LEVEL 7-10; Start 10/29/16 at 00:00 Lactobacillus Acidoph/Bulgaricus (Floranex) 1 tab BID PO Last administered on 21:40; Admin Dose 1 TAB; Start 10/30/16 at 13:00 Mupirocin (Bactroban) 1 applic BID TOP Last administered on 11/05/16 21:39; Admin Dose 1 APPLIC; Start 10/31/16 at 09:00; Stop 11/15/16 at 23:00 Vancomycin HCl (Vanco Iv Per Pharmacy) PER PHARMACY DOSING NOTE XX ; Start 10/31 at 01:00 Lamotrigine (Lamictal) 200 mg BID PO Last administered on 11/05/16 21:39; Admin Dose 200 MG; Start 10/31/16 at 14:30 Miscellaneous Information 1 ea NOTE XX ; Start 10/31/16 at 13:30 Glucose (Glutose) 15 gm Q15M PRN PO DECREASED GLUCOSE; Start 10/31/16 at 13:30 Glucose (Glutose) 22.5 gm Q15M PRN PO DECREASED GLUCOSE; Start 10/31/16 at 13: 30 Dextrose (D50w Syringe) 25 ml Q15M PRN IV DECREASED GLUCOSE; Start 10/31/16 at 13:30 Dextrose (D50w Syringe) 50 ml Q15M PRN IV DECREASED GLUCOSE; Start 10/31/16 at 13:30 Glucagon (Glucagen) 1 mg Q15M PRN IM DECREASED GLUCOSE; Start 10/31/16 at 13:30 Glucose 15 gm 15 gm Q15M PRN BUCCAL DECREASED GLUCOSE; Start 10/31/16 at 13:30 Vancomycin HCl 250 ml @ 125 mls/hr Q12H IVPB Last administered on 11/05/16 14 :27; Admin Dose 125 MLS/HR; Start 11/02/16 at 02:00 Dopamine HCl/ Dextrose 250 ml @ 7.035 mls/ hr TITRATE IV Last administered on 11/02/16 18:20; Admin Dose 3.518 MLS/HR; Start 11/02/16 at 18:30 Hydromorphone HCl (Dilaudid) 0.2 mg Q1H PRN IV PAIN LEVEL 1-5; Start 11/02/16 at 18:30 Hydromorphone HCl 0.4 mg 0.4 mg Q1H PRN IV PAIN LEVEL 6-10; Start 11/02/16 at 18:30 Magnesium Sulfate/ Dextrose 100 ml @ 100 mls/hr PRN PRN IVPB PENDING LAB VALUE ; Start 11/02/16 at 18:30 Potassium Chloride/Dextrose/ Sodium Chloride (KCl/D5-1/4ns) 1,020 ml @ 60 mls/ hr Q17H IV Last administered on 11/05/16 15:51; Admin Dose 60 MLS/HR; Start at 20:00 Dextrose (D50w Syringe) 25 ml Q15M PRN IV Till BS 80 mg/dL or above x2; Start 11/02/16 at 19:30 Dextrose (D50w Syringe) 50 ml Q15M PRN IV Till BS 80 mg/dL or above x2; Start 11/02/16 at 19:30 Morphine Sulfate 3 mg 3 mg Q4H PRN IV PAIN LEVEL 7-10 Last administered on 11/03 08:35; Admin Dose 3 MG; Start 11/02/16 at 22:59 Ondansetron HCl 8 mg/Sodium Chloride 54 ml @ 216 mls/hr Q6H PRN IV NAUSEA AND/ OR VOMITING Last administered on 11/05/16 15:51; Admin Dose 216 MLS/HR; Start 11/02/16 at 23:30 Meropenem (Merrem 500 Mg/ 100 ml (Pmx)) 100 ml @ 200 mls/hr Q8 IVPB Last administered on 11/05/16 21:45; Admin Dose 200 MLS/HR; Start 11/03/16 at 13:30 Insulin Glargine (Lantus) 15 unit DAILY@20 SC Last administered on 11/05/16 20 :07; Admin Dose 15 UNIT; Start 11/05/16 at 20:00 Diagnostic Test (Pha) (Accu-Chek) 1 ea 02 XX ; Start 11/06/16 at 02:00 BETO PADILLA MD Nov 05, 2016 23:01
[2016-11-06] VITALS (19 sets, daily range): BP systolic 96–141; BP diastolic 49–80; PULSE 68–80; RESP 15–24
[2016-11-06] MEDS: morphine 2 MG INJ IV PRN ×3 (01:18→09:52)
[2016-11-06] MEDS: VANCOMYCIN 1 GM in NS 250 ML IVPB SCH ×2 (01:57→14:07)
[2016-11-06] MEDS ORDERED: ACCU-CHEK XX SCH (02:00)
[2016-11-06] MEDS: MEROPENEM 500 MG/100 ML (PMX) 100 ML IVPB SCH ×3 (05:24→21:46)
[2016-11-06 05:31] LABS: ADD SCAN DIFF NO
[2016-11-06 06:03] LABS: BASOPHILS % 0.1 % (0.0-2.0); EOSINOPHILS # 0.3 10^3/ul (0.0-0.5); EOSINOPHILS % 4.1 % (0.0-7.0); HEMATOCRIT 27.1 % (42.0-52.0); HEMOGLOBIN 8.2 g/dl (14.0-18.0); MEAN CORPUSCULAR HGB CONC 30.3 g/dl (32.0-37.0); MEAN CORPUSCULAR VOLUME 82.6 fl (82.0-101.0); MEAN PLATELET VOLUME 9.7 fl (7.4-10.4); MONOCYTE # 0.6 10^3/ul (0.3-0.9); MONOCYTES % 6.9 % (0.0-11.0); NEUTROPHIL # 6.3 10^3/ul (1.6-7.5); NEUTROPHILS % 76.4 % (39.0-77.0); PLATELET COUNT 196 10^3/UL (140-415); RED BLOOD COUNT 3.28 10^6/ul (4.70-6.10); RED CELL DISTRIBUTION WIDTH 15.2 % (11.5-14.5); WHITE BLOOD COUNT 8.3 10^3/ul (4.8-10.8)
[2016-11-06 06:08] LABS: POTASSIUM 4.9 mmol/L (3.5-5.1)
[2016-11-06 06:10] LABS: CREATININE 0.8 mg/dl (0.61-1.24)
[2016-11-06] MEDS: INSULIN ASPART [NOVOLOG] 3 ML PEN SC SCH ×7 (07:35→21:00)
[2016-11-06] MEDS: LAMOTRIGINE 100 MG TAB PO SCH ×2 (08:49→21:45)
[2016-11-06] MEDS: METOPROLOL 25 MG TAB PO SCH ×2 (08:50→21:45)
[2016-11-06] MEDS: ASPIRIN 81 MG TAB PO SCH (08:50)
[2016-11-06] MEDS: LACTOBACILLUS CHEW TAB PO SCH ×2 (08:50→21:44)
[2016-11-06] MEDS: MUPIROCIN 2% 22 GM OINT TOP SCH ×2 (08:51→21:46)
[2016-11-06] MEDS: POTASSIUM CHLORIDE 40 MEQ in DEXTROSE 5%-0.225% NACL 1,000 ML IV SCH (09:00)
[2016-11-06] MEDS: ONDANSETRON INJ 8 MG in SOD CHLORIDE 0.9% 50 ML IV PRN ×2 (11:01→17:31)
--- NOTE | 2016-11-06 13:34 | CONS ---
Date/Time of Note Date/Time of Note DATE: 11/06/16 TIME: 13:34 Assessment/Plan Assessment/Plan Chief Complaint/Hosp Course Anemia S/P EGD ([facility]) Esophagitis POST BMBX- AT SO FINAL PATH - neg MONITOR BLOOD COUNT CLOSELY NSTEMI Multivessel CAD History of seizure History of alcoholism History of C difficile colitis Diabetes mellitus Problems: Consultation Date/Type/Reason Admit Date/Time Oct 27, 2016 at 22:32 Initial Consult Date 10/28/16 Type of Consultation: hemeonc 24 HR Interval Summary Free Text/Dictation ALL NOTED NO NEW EVENTS COUNT REVIEWED Exam/Review of Systems Vital Signs Vitals Vital Signs Date Time Temp Pulse Resp B/P Pulse Ox O2 Delivery O2 Flow Rate FiO2 11/06/16 12:00 76 11/06/16 11:00 22 127/69 95 Nasal Cannula 11/06/16 08:00 97.9 11/06/16 08:00 2.0 11/05/16 05:29 27 Intake and Output 11/05/16 11/05/16 11/06/16 15:00 23:00 07:00 Intake Total 1241 ml 875 ml 675 ml Output Total 300 ml 700 ml 900 ml Balance 941 ml 175 ml -225 ml Exam Constitutional: Alert, no distress Psych: Nl mood/affect Head: atraumatic, normocephalic Eyes: nl conjunctiva, nl lids Neck: non-tender, supple, No jvd Respiratory: clear to auscultation, No crackles/rales Cardiovascular: regular rate and rhythm Gastrointestinal: non-tender, soft Extremities: No clubbing, No cyanosis, No edema Neurological: Nl mental status, Nl speech Results Result Diagram: 11/06/16 0500 11/06/16 0500 Results 24 hrs Laboratory Tests Test 11/05/16 17:29 11/05/16 21:37 11/06/16 01:53 11/06/16 05:00 Bedside Glucose 205 114 134 White Blood Count 8.3 Red Blood Count 3.28 L Hemoglobin 8.2 L Hematocrit 27.1 L Mean Corpuscular Volume 82.6 Mean Corpuscular Hemoglobin 25.0 L Mean Corpuscular Hemoglobin Concent 30.3 L Red Cell Distribution Width 15.2 H Platelet Count 196 # Mean Platelet Volume 9.7 Neutrophils % 76.4 Lymphocytes % 12.0 L Monocytes % 6.9 Eosinophils % 4.1 Basophils % 0.1 Nucleated Red Blood Cells % 0.0 Neutrophils # 6.3 Lymphocytes # 1.0 Monocytes # 0.6 Eosinophils # 0.3 Basophils # 0.0 Nucleated Red Blood Cells # 0.0 Sodium Level 134 L Potassium Level 4.9 Chloride Level 101 Carbon Dioxide Level 24 Anion Gap 14 Blood Urea Nitrogen 21 H Creatinine 0.80 Glucose Level 119 Calcium Level 8.0 L Test 11/06/16 07:45 11/06/16 12:38 Bedside Glucose 120 171 Medications Medications Current Medications Lorazepam (Ativan) 0.5 mg Q6H PRN IV ANXIETY; Start 10/28/16 at 04:00 Acetaminophen (Tylenol Supp) 650 mg Q6H PRN OR PAIN LEVEL 1-3 OR FEVER Last administered on 11/02/16 22:15; Admin Dose 650 MG; Start 10/28/16 at 04:00 Aspirin (Aspirin) 81 mg DAILY PO Last administered on 11/06/16 08:50; Admin Dose 81 MG; Start 10/28/16 at 09:00 Atorvastatin Calcium (Lipitor) 40 mg HS PO Last administered on 11/05/16 21:40 ; Admin Dose 40 MG; Start 10/28/16 at 21:00 Metoprolol Tartrate (Lopressor) 25 mg BID PO Last administered on 11/06/16 08: 50; Admin Dose 25 MG; Start 10/28/16 at 09:00 Morphine Sulfate (morphine) 2 mg Q2H PRN IV FOR NON CARDIAC PAIN (4-10) Last administered on 11/06/16 09:52; Admin Dose 2 MG; Start 10/28/16 at 14:00 Enoxaparin Sodium (Lovenox) 40 mg DAILY SC Last administered on 11/01/16 09:03 ; Admin Dose 40 MG; Start 10/29/16 at 09:00; Status Future Hold Acetaminophen/ Hydrocodone Bitart ([place] (5/325)) 1 tab Q4H PRN PO MODERATE PAIN LEVEL 4-6 Last administered on 10/29/16 00:09; Admin Dose 1 TAB; Start at 00:00 Acetaminophen/ Hydrocodone Bitart ([place] (5/325)) 2 tab Q4H PRN PO SEVERE PAIN LEVEL 7-10; Start 10/29/16 at 00:00 Lactobacillus Acidoph/Bulgaricus (Floranex) 1 tab BID PO Last administered on 08:50; Admin Dose 1 TAB; Start 10/30/16 at 13:00 Mupirocin (Bactroban) 1 applic BID TOP Last administered on 11/06/16 08:51; Admin Dose 1 APPLIC; Start 10/31/16 at 09:00; Stop 11/15/16 at 23:00 Vancomycin HCl (Vanco Iv Per Pharmacy) PER PHARMACY DOSING NOTE XX ; Start 10/31 at 01:00 Lamotrigine (Lamictal) 200 mg BID PO Last administered on 11/06/16 08:49; Admin Dose 200 MG; Start 10/31/16 at 14:30 Miscellaneous Information 1 ea NOTE XX ; Start 10/31/16 at 13:30 Glucose (Glutose) 15 gm Q15M PRN PO DECREASED GLUCOSE; Start 10/31/16 at 13:30 Glucose (Glutose) 22.5 gm Q15M PRN PO DECREASED GLUCOSE; Start 10/31/16 at 13: 30 Dextrose (D50w Syringe) 25 ml Q15M PRN IV DECREASED GLUCOSE; Start 10/31/16 at 13:30 Dextrose (D50w Syringe) 50 ml Q15M PRN IV DECREASED GLUCOSE; Start 10/31/16 at 13:30 Glucagon (Glucagen) 1 mg Q15M PRN IM DECREASED GLUCOSE; Start 10/31/16 at 13:30 Glucose 15 gm 15 gm Q15M PRN BUCCAL DECREASED GLUCOSE; Start 10/31/16 at 13:30 Vancomycin HCl 250 ml @ 125 mls/hr Q12H IVPB Last administered on 11/06/16 01: 57; Admin Dose 125 MLS/HR; Start 11/02/16 at 02:00 Dopamine HCl/ Dextrose 250 ml @ 7.035 mls/ hr TITRATE IV Last administered on 11/02/16 18:20; Admin Dose 3.518 MLS/HR; Start 11/02/16 at 18:30 Hydromorphone HCl (Dilaudid) 0.2 mg Q1H PRN IV PAIN LEVEL 1-5; Start 11/02/16 at 18:30 Hydromorphone HCl 0.4 mg 0.4 mg Q1H PRN IV PAIN LEVEL 6-10; Start 11/02/16 at 18:30 Magnesium Sulfate/ Dextrose (Magnesium Sulfate 1 Gm/D5W) 100 ml @ 100 mls/hr PRN PRN IVPB PENDING LAB VALUE; Start 11/02/16 at 18:30 Dextrose (D50w Syringe) 25 ml Q15M PRN IV Till BS 80 mg/dL or above x2; Start 11/02/16 at 19:30 Dextrose (D50w Syringe) 50 ml Q15M PRN IV Till BS 80 mg/dL or above x2; Start 11/02/16 at 19:30 Morphine Sulfate 3 mg 3 mg Q4H PRN IV PAIN LEVEL 7-10 Last administered on 11/03 08:35; Admin Dose 3 MG; Start 11/02/16 at 22:59 Ondansetron HCl 8 mg/Sodium Chloride 54 ml @ 216 mls/hr Q6H PRN IV NAUSEA AND/ OR VOMITING Last administered on 11/06/16 11:01; Admin Dose 216 MLS/HR; Start at 23:30 Meropenem (Merrem 500 Mg/ 100 ml (Pmx)) 100 ml @ 200 mls/hr Q8 IVPB Last administered on 11/06/16 05:24; Admin Dose 200 MLS/HR; Start 11/03/16 at 13:30 Insulin Glargine (Lantus) 15 unit DAILY@20 SC Last administered on 11/05/16 20 :07; Admin Dose 15 UNIT; Start 11/05/16 at 20:00 Diagnostic Test (Pha) (Accu-Chek) 1 ea 02 XX Last administered on 11/06/16 01: 57; Admin Dose 1 EA; Start 11/06/16 at 02:00 BETO PADILLA MD Nov 06, 2016 13:34
--- NOTE | 2016-11-06 13:45 | PN ---
Date/Time of Note Date/Time of Note DATE: 11/06/16 TIME: 13:44 Assessment/Plan VTE Prophylaxis VTE Prophylaxis Intervention: LMWH Assessment/Plan Chief Complaint/Hosp Course 1. Coronary artery disease, NSTEMI, s/p CABG on 11/02/2016 -DC to Home per CTS 2. Hypotension-resolved 3. Diabetes mellitus, on insulin drip 4. H/o of upper GI bleeding with esophagitis on EGD, stable 5. Microcytic anemia. follow up with H/H 6. Seizure disorder. stable 7. Peripheral vascular disease status post foot amputation PPx- Lovenox Problems: Subjective 24 Hr Interval Summary Constitutional: no complaints Exam/Review of Systems Vital Signs Vitals Vital Signs Date Time Temp Pulse Resp B/P Pulse Ox O2 Delivery O2 Flow Rate FiO2 11/06/16 12:00 76 11/06/16 11:00 22 127/69 95 Nasal Cannula 11/06/16 08:00 97.9 11/06/16 08:00 2.0 11/05/16 05:29 27 Intake and Output 11/05/16 11/05/16 11/06/16 15:00 23:00 07:00 Intake Total 1241 ml 875 ml 675 ml Output Total 300 ml 700 ml 900 ml Balance 941 ml 175 ml -225 ml Exam Constitutional: alert Respiratory: clear to auscultation Cardiovascular: regular rate and rhythm Gastrointestinal: soft, No distended Musculoskeletal: nl extremities to inspection Results Result Diagram: 11/06/16 0500 11/06/16 0500 Results 24 hrs Laboratory Tests Test 11/05/16 17:29 11/05/16 21:37 11/06/16 01:53 11/06/16 05:00 Bedside Glucose 205 114 134 White Blood Count 8.3 Red Blood Count 3.28 L Hemoglobin 8.2 L Hematocrit 27.1 L Mean Corpuscular Volume 82.6 Mean Corpuscular Hemoglobin 25.0 L Mean Corpuscular Hemoglobin Concent 30.3 L Red Cell Distribution Width 15.2 H Platelet Count 196 # Mean Platelet Volume 9.7 Neutrophils % 76.4 Lymphocytes % 12.0 L Monocytes % 6.9 Eosinophils % 4.1 Basophils % 0.1 Nucleated Red Blood Cells % 0.0 Neutrophils # 6.3 Lymphocytes # 1.0 Monocytes # 0.6 Eosinophils # 0.3 Basophils # 0.0 Nucleated Red Blood Cells # 0.0 Sodium Level 134 L Potassium Level 4.9 Chloride Level 101 Carbon Dioxide Level 24 Anion Gap 14 Blood Urea Nitrogen 21 H Creatinine 0.80 Glucose Level 119 Calcium Level 8.0 L Test 11/06/16 07:45 11/06/16 12:38 Bedside Glucose 120 171 Medications Medications Current Medications Lorazepam (Ativan) 0.5 mg Q6H PRN IV ANXIETY; Start 10/28/16 at 04:00 Acetaminophen (Tylenol Supp) 650 mg Q6H PRN [place] PAIN LEVEL 1-3 OR FEVER Last administered on 11/02/16 22:15; Admin Dose 650 MG; Start 10/28/16 at 04:00 Aspirin (Aspirin) 81 mg DAILY PO Last administered on 11/06/16 08:50; Admin Dose 81 MG; Start 10/28/16 at 09:00 Atorvastatin Calcium (Lipitor) 40 mg HS PO Last administered on 11/05/16 21:40 ; Admin Dose 40 MG; Start 10/28/16 at 21:00 Metoprolol Tartrate (Lopressor) 25 mg BID PO Last administered on 11/06/16 08: 50; Admin Dose 25 MG; Start 10/28/16 at 09:00 Morphine Sulfate (morphine) 2 mg Q2H PRN IV FOR NON CARDIAC PAIN (4-10) Last administered on 11/06/16 09:52; Admin Dose 2 MG; Start 10/28/16 at 14:00 Enoxaparin Sodium (Lovenox) 40 mg DAILY SC Last administered on 11/01/16 09:03 ; Admin Dose 40 MG; Start 10/29/16 at 09:00; Status Future Hold Acetaminophen/ Hydrocodone Bitart ([place] (5/325)) 1 tab Q4H PRN PO MODERATE PAIN LEVEL 4-6 Last administered on 10/29/16 00:09; Admin Dose 1 TAB; Start at 00:00 Acetaminophen/ Hydrocodone Bitart ([place] (5/325)) 2 tab Q4H PRN PO SEVERE PAIN LEVEL 7-10; Start 10/29/16 at 00:00 Lactobacillus Acidoph/Bulgaricus (Floranex) 1 tab BID PO Last administered on 08:50; Admin Dose 1 TAB; Start 10/30/16 at 13:00 Mupirocin (Bactroban) 1 applic BID TOP Last administered on 11/06/16 08:51; Admin Dose 1 APPLIC; Start 10/31/16 at 09:00; Stop 11/15/16 at 23:00 Vancomycin HCl (Vanco Iv Per Pharmacy) PER PHARMACY DOSING NOTE XX ; Start 10/31 at 01:00 Lamotrigine (Lamictal) 200 mg BID PO Last administered on 11/06/16 08:49; Admin Dose 200 MG; Start 10/31/16 at 14:30 Miscellaneous Information 1 ea NOTE XX ; Start 10/31/16 at 13:30 Glucose (Glutose) 15 gm Q15M PRN PO DECREASED GLUCOSE; Start 10/31/16 at 13:30 Glucose (Glutose) 22.5 gm Q15M PRN PO DECREASED GLUCOSE; Start 10/31/16 at 13: 30 Dextrose (D50w Syringe) 25 ml Q15M PRN IV DECREASED GLUCOSE; Start 10/31/16 at 13:30 Dextrose (D50w Syringe) 50 ml Q15M PRN IV DECREASED GLUCOSE; Start 10/31/16 at 13:30 Glucagon (Glucagen) 1 mg Q15M PRN IM DECREASED GLUCOSE; Start 10/31/16 at 13:30 Glucose 15 gm 15 gm Q15M PRN BUCCAL DECREASED GLUCOSE; Start 10/31/16 at 13:30 Vancomycin HCl 250 ml @ 125 mls/hr Q12H IVPB Last administered on 11/06/16 01: 57; Admin Dose 125 MLS/HR; Start 11/02/16 at 02:00 Dopamine HCl/ Dextrose 250 ml @ 7.035 mls/ hr TITRATE IV Last administered on 11/02/16 18:20; Admin Dose 3.518 MLS/HR; Start 11/02/16 at 18:30 Hydromorphone HCl (Dilaudid) 0.2 mg Q1H PRN IV PAIN LEVEL 1-5; Start 11/02/16 at 18:30 Hydromorphone HCl 0.4 mg 0.4 mg Q1H PRN IV PAIN LEVEL 6-10; Start 11/02/16 at 18:30 Magnesium Sulfate/ Dextrose (Magnesium Sulfate 1 Gm/D5W) 100 ml @ 100 mls/hr PRN PRN IVPB PENDING LAB VALUE; Start 11/02/16 at 18:30 Dextrose (D50w Syringe) 25 ml Q15M PRN IV Till BS 80 mg/dL or above x2; Start 11/02/16 at 19:30 Dextrose (D50w Syringe) 50 ml Q15M PRN IV Till BS 80 mg/dL or above x2; Start 11/02/16 at 19:30 Morphine Sulfate 3 mg 3 mg Q4H PRN IV PAIN LEVEL 7-10 Last administered on 11/03 08:35; Admin Dose 3 MG; Start 11/02/16 at 22:59 Ondansetron HCl 8 mg/Sodium Chloride 54 ml @ 216 mls/hr Q6H PRN IV NAUSEA AND/ OR VOMITING Last administered on 11/06/16 11:01; Admin Dose 216 MLS/HR; Start at 23:30 Meropenem (Merrem 500 Mg/ 100 ml (Pmx)) 100 ml @ 200 mls/hr Q8 IVPB Last administered on 11/06/16 05:24; Admin Dose 200 MLS/HR; Start 11/03/16 at 13:30 Insulin Glargine (Lantus) 15 unit DAILY@20 SC Last administered on 11/05/16 20 :07; Admin Dose 15 UNIT; Start 11/05/16 at 20:00 Diagnostic Test (Pha) (Accu-Chek) 1 ea 02 XX Last administered on 11/06/16 01: 57; Admin Dose 1 EA; Start 11/06/16 at 02:00 GENO MORALES Nov 06, 2016 13:45
--- NOTE | 2016-11-06 14:26 | PN ---
DATE: 11/06/2016 SUBJECTIVE: No acute changes. Patient is awake, lying comfortably in bed, feels tired. Guerra cat heter, chest tube and right IJ line was discontinued. VITAL SIGNS: Temperature 97.9, pulse 76, respirations 22, blood pressure 127/69, saturation 95 on n aspen cannula. LABORATORY DATA: WBC 8.3, H and H 8.2 and 27.1, platelets 196. No shift. BUN 21, creatinine 0.80. ANTIMICROBIALS: Patient is on: 1. Vancomycin. 2. Merrem. PHYSICAL EXAMINATION: GENERAL: This is a well-nourished, well-developed elderly man who is awake, in no distress. HEENT: Atraumatic, normocephalic. Sclerae anicteric. Buccal mucosa dry. NECK: Supple. CHEST: Rise symmetrical. Breath sounds diminished to bases. HEART: S1, S2. ABDOMEN: Soft, bowel sounds present. EXTREMITIES: Without cyanosis. Trace edema. ASSESSMENT 1. Status post coronary artery bypass graft on 11/02/2016. 2. Healthcare-associated pneumonia. 3. Methicillin-resistant Staphylococcus aureus nares colonization. 4. Diabetes. 5. Hypertension. PLAN: The patient remains stable, overall improving. Continue present care, antibiotics, and follo w recommendations of consultants. Dictated By: CINDY PINA GYPSUM ROOFER for LISSETH RAND/JOSELINE Conf#: [id number] DID#: [id number]
--- NOTE | 2016-11-06 17:30 | CONS ---
Date/Time of Note Date/Time of Note DATE: 11/06/16 TIME: 17:29 Assessment/Plan Assessment/Plan Chief Complaint/Hosp Course Assessment: Status post NSTEMI Coronary artery disease - status post CABG 11/02/2016 (CORTEZ-prox LAD-distal LAD, SVG-OM1, SVG-OM2-PDA, SVG-OM3) Acute on chronic diastolic heart failure - diuresed and thoracentesis at [facility], now euvolemic Seizure disorder - initial presentation was seizure Diabetes mellitus Anemia - bone marrow biopsy reported to be negative Esophagitis on EGD Status post right transmetatarsal amputation Healthcare-associated pneumonia - per infectious disease Recommendations: -pre-operative echocardiogram showed LVEF 55%, basal inferolateral and inferior hypokinesis -continue aspirin -continue atorvastatin -continue metoprolol 25mg BID -monitor volume status, spot dose diuretics as needed -post-operative care per surgery Problems: Consultation Date/Type/Reason Admit Date/Time Oct 27, 2016 at 22:32 Initial Consult Date 10/28/16 Type of Consultation: Cardiology 24 HR Interval Summary Free Text/Dictation No acute events. Having nausea, controlled with Zofran. Detailed Summary Additional Comments 14 point review of systems without changes. Exam/Review of Systems Vital Signs Vitals Vital Signs Date Time Temp Pulse Resp B/P Pulse Ox O2 Delivery O2 Flow Rate FiO2 11/06/16 16:00 79 11/06/16 11:00 22 127/69 95 Nasal Cannula 11/06/16 08:00 97.9 11/06/16 08:00 2.0 11/05/16 05:29 27 Intake and Output 11/05/16 11/05/16 11/06/16 15:00 23:00 07:00 Intake Total 1241 ml 875 ml 675 ml Output Total 300 ml 700 ml 900 ml Balance 941 ml 175 ml -225 ml Exam Constitutional: Alert, no distress Psych: Nl mood/affect Head: atraumatic, normocephalic Eyes: nl conjunctiva, nl lids Neck: non-tender, supple, No jvd Respiratory: clear to auscultation, No crackles/rales Cardiovascular: regular rate and rhythm Gastrointestinal: non-tender, soft Extremities: No clubbing, No cyanosis, No edema Neurological: Nl mental status, Nl speech Results Result Diagram: 11/06/16 0500 11/06/16 0500 Results 24 hrs Laboratory Tests Test 11/05/16 21:37 11/06/16 01:53 11/06/16 05:00 11/06/16 07:45 Bedside Glucose 114 134 120 White Blood Count 8.3 Red Blood Count 3.28 L Hemoglobin 8.2 L Hematocrit 27.1 L Mean Corpuscular Volume 82.6 Mean Corpuscular Hemoglobin 25.0 L Mean Corpuscular Hemoglobin Concent 30.3 L Red Cell Distribution Width 15.2 H Platelet Count 196 # Mean Platelet Volume 9.7 Neutrophils % 76.4 Lymphocytes % 12.0 L Monocytes % 6.9 Eosinophils % 4.1 Basophils % 0.1 Nucleated Red Blood Cells % 0.0 Neutrophils # 6.3 Lymphocytes # 1.0 Monocytes # 0.6 Eosinophils # 0.3 Basophils # 0.0 Nucleated Red Blood Cells # 0.0 Sodium Level 134 L Potassium Level 4.9 Chloride Level 101 Carbon Dioxide Level 24 Anion Gap 14 Blood Urea Nitrogen 21 H Creatinine 0.80 Glucose Level 119 Calcium Level 8.0 L Test 11/06/16 12:38 Bedside Glucose 171 Medications Medications Current Medications Lorazepam (Ativan) 0.5 mg Q6H PRN IV ANXIETY; Start 10/28/16 at 04:00 Acetaminophen (Tylenol Supp) 650 mg Q6H PRN [place] PAIN LEVEL 1-3 OR FEVER Last administered on 11/02/16 22:15; Admin Dose 650 MG; Start 10/28/16 at 04:00 Aspirin (Aspirin) 81 mg DAILY PO Last administered on 11/06/16 08:50; Admin Dose 81 MG; Start 10/28/16 at 09:00 Atorvastatin Calcium (Lipitor) 40 mg HS PO Last administered on 11/05/16 21:40 ; Admin Dose 40 MG; Start 10/28/16 at 21:00 Metoprolol Tartrate (Lopressor) 25 mg BID PO Last administered on 11/06/16 08: 50; Admin Dose 25 MG; Start 10/28/16 at 09:00 Morphine Sulfate (morphine) 2 mg Q2H PRN IV FOR NON CARDIAC PAIN (4-10) Last administered on 11/06/16 09:52; Admin Dose 2 MG; Start 10/28/16 at 14:00 Enoxaparin Sodium (Lovenox) 40 mg DAILY SC Last administered on 11/01/16 09:03 ; Admin Dose 40 MG; Start 10/29/16 at 09:00; Status Future Hold Acetaminophen/ Hydrocodone Bitart ([place] (5/325)) 1 tab Q4H PRN PO MODERATE PAIN LEVEL 4-6 Last administered on 10/29/16 00:09; Admin Dose 1 TAB; Start at 00:00 Acetaminophen/ Hydrocodone Bitart ([place] (5/325)) 2 tab Q4H PRN PO SEVERE PAIN LEVEL 7-10; Start 10/29/16 at 00:00 Lactobacillus Acidoph/Bulgaricus (Floranex) 1 tab BID PO Last administered on 08:50; Admin Dose 1 TAB; Start 10/30/16 at 13:00 Mupirocin (Bactroban) 1 applic BID TOP Last administered on 11/06/16 08:51; Admin Dose 1 APPLIC; Start 10/31/16 at 09:00; Stop 11/15/16 at 23:00 Vancomycin HCl (Vanco Iv Per Pharmacy) PER PHARMACY DOSING NOTE XX ; Start 10/31 at 01:00 Lamotrigine (Lamictal) 200 mg BID PO Last administered on 11/06/16 08:49; Admin Dose 200 MG; Start 10/31/16 at 14:30 Miscellaneous Information 1 ea NOTE XX ; Start 10/31/16 at 13:30 Glucose (Glutose) 15 gm Q15M PRN PO DECREASED GLUCOSE; Start 10/31/16 at 13:30 Glucose (Glutose) 22.5 gm Q15M PRN PO DECREASED GLUCOSE; Start 10/31/16 at 13: 30 Dextrose (D50w Syringe) 25 ml Q15M PRN IV DECREASED GLUCOSE; Start 10/31/16 at 13:30 Dextrose (D50w Syringe) 50 ml Q15M PRN IV DECREASED GLUCOSE; Start 10/31/16 at 13:30 Glucagon (Glucagen) 1 mg Q15M PRN IM DECREASED GLUCOSE; Start 10/31/16 at 13:30 Glucose 15 gm 15 gm Q15M PRN BUCCAL DECREASED GLUCOSE; Start 10/31/16 at 13:30 Vancomycin HCl 250 ml @ 125 mls/hr Q12H IVPB Last administered on 11/06/16 14: 07; Admin Dose 125 MLS/HR; Start 11/02/16 at 02:00 Dopamine HCl/ Dextrose 250 ml @ 7.035 mls/ hr TITRATE IV Last administered on 11/02/16 18:20; Admin Dose 3.518 MLS/HR; Start 11/02/16 at 18:30 Hydromorphone HCl (Dilaudid) 0.2 mg Q1H PRN IV PAIN LEVEL 1-5; Start 11/02/16 at 18:30 Hydromorphone HCl 0.4 mg 0.4 mg Q1H PRN IV PAIN LEVEL 6-10; Start 11/02/16 at 18:30 Magnesium Sulfate/ Dextrose (Magnesium Sulfate 1 Gm/D5W) 100 ml @ 100 mls/hr PRN PRN IVPB PENDING LAB VALUE; Start 11/02/16 at 18:30 Dextrose (D50w Syringe) 25 ml Q15M PRN IV Till BS 80 mg/dL or above x2; Start 11/02/16 at 19:30 Dextrose (D50w Syringe) 50 ml Q15M PRN IV Till BS 80 mg/dL or above x2; Start 11/02/16 at 19:30 Morphine Sulfate 3 mg 3 mg Q4H PRN IV PAIN LEVEL 7-10 Last administered on 11/03 08:35; Admin Dose 3 MG; Start 11/02/16 at 22:59 Ondansetron HCl 8 mg/Sodium Chloride 54 ml @ 216 mls/hr Q6H PRN IV NAUSEA AND/ OR VOMITING Last administered on 11/06/16 11:01; Admin Dose 216 MLS/HR; Start at 23:30 Meropenem (Merrem 500 Mg/ 100 ml (Pmx)) 100 ml @ 200 mls/hr Q8 IVPB Last administered on 11/06/16 14:07; Admin Dose 200 MLS/HR; Start 11/03/16 at 13:30 Insulin Glargine (Lantus) 15 unit DAILY@20 SC Last administered on 11/05/16 20 :07; Admin Dose 15 UNIT; Start 11/05/16 at 20:00 Diagnostic Test (Pha) (Accu-Chek) 1 ea 02 XX Last administered on 11/06/16 01: 57; Admin Dose 1 EA; Start 11/06/16 at 02:00 NANCIE HUGHES MD Nov 06, 2016 17:30
[2016-11-06] MEDS: INSULIN GLARGINE [LANtus] 3 ML PEN SC SCH (20:00)
[2016-11-06] MEDS ORDERED: INSULIN GLARGINE [LANtus] 3 ML PEN SC ONE (20:30)
--- NOTE | 2016-11-06 20:50 | PN ---
Date/Time of Note Date/Time of Note DATE: 11/06/16 TIME: 20:49 Assessment/Plan Lines/Catheters IV Catheter Type (from Nrsg): Peripheral IV Assessment/Plan Chief Complaint/Hosp Course MPRESSION: 1. Coronary artery disease. 2. Status post myocardial infarction. 3. Anemia. 4. Gastrointestinal bleeding. 5. Seizure disorder. 6. Peripheral vascular disease status post foot amputation. SP CABG CT removed Pulm toilet ambulation Problems: Subjective 24 Hr Interval Summary Constitutional: improved Pain Control: mild Exam/Review of Systems Vital Signs Vitals Vital Signs Date Time Temp Pulse Resp B/P Pulse Ox O2 Delivery O2 Flow Rate FiO2 11/06/16 20:00 79 11/06/16 18:00 19 119/66 97 Room Air 11/06/16 16:00 98.4 11/06/16 08:00 2.0 11/05/16 05:29 27 Intake and Output 11/05/16 11/05/16 11/06/16 15:00 23:00 07:00 Intake Total 1241 ml 875 ml 675 ml Output Total 300 ml 700 ml 900 ml Balance 941 ml 175 ml -225 ml Exam Neck: non-tender, supple Respiratory: clear to auscultation, normal air movement Cardiovascular: nl pulses, regular rate and rhythm Gastrointestinal: nl liver, spleen, non-tender, soft Results Result Diagram: 11/06/16 0500 11/06/16 0500 JOAN WATTS MD Nov 06, 2016 20:50
[2016-11-06] MEDS: ATORVASTATIN 40 MG TAB PO SCH (21:44)
[2016-11-07] VITALS (11 sets, daily range): BP systolic 115–142; BP diastolic 65–78; PULSE 67–83; RESP 16–20
[2016-11-07] MEDS: VANCOMYCIN 1 GM in NS 250 ML IVPB SCH ×2 (02:19→15:39)
[2016-11-07 06:40] LABS: ADD SCAN DIFF NO
[2016-11-07 06:45] LABS: BASOPHILS % 0.2 % (0.0-2.0); EOSINOPHILS # 0.3 10^3/ul (0.0-0.5); EOSINOPHILS % 4.5 % (0.0-7.0); HEMATOCRIT 26.9 % (42.0-52.0); HEMOGLOBIN 8.3 g/dl (14.0-18.0); LYMPHOCYTES % 14.4 % (15.0-51.0); MEAN CORPUSCULAR HEMOGLOBIN 25.2 pg (29.0-33.0); MEAN CORPUSCULAR HGB CONC 30.9 g/dl (32.0-37.0); MEAN CORPUSCULAR VOLUME 81.8 fl (82.0-101.0); MEAN PLATELET VOLUME 9.5 fl (7.4-10.4); MONOCYTE # 0.6 10^3/ul (0.3-0.9); MONOCYTES % 8.3 % (0.0-11.0); NEUTROPHIL # 4.8 10^3/ul (1.6-7.5); NEUTROPHILS % 72.1 % (39.0-77.0); PLATELET COUNT 213 10^3/UL (140-415); RED BLOOD COUNT 3.29 10^6/ul (4.70-6.10); RED CELL DISTRIBUTION WIDTH 15.3 % (11.5-14.5); WHITE BLOOD COUNT 6.6 10^3/ul (4.8-10.8)
[2016-11-07 07:07] LABS: CREATININE 0.82 mg/dl (0.61-1.24)
[2016-11-07 07:08] LABS: CALCIUM 8.2 mg/dl (8.4-10.2)
[2016-11-07] MEDS: MEROPENEM 500 MG/100 ML (PMX) 100 ML IVPB SCH ×3 (07:08→22:52)
[2016-11-07] MEDS: INSULIN ASPART [NOVOLOG] 3 ML PEN SC SCH ×7 (07:55→21:00)
[2016-11-07] MEDS: LAMOTRIGINE 100 MG TAB PO SCH ×2 (09:25→22:50)
[2016-11-07] MEDS: METOPROLOL 25 MG TAB PO SCH ×2 (09:26→22:50)
[2016-11-07] MEDS: MUPIROCIN 2% 22 GM OINT TOP SCH ×2 (09:26→22:51)
[2016-11-07] MEDS: LACTOBACILLUS CHEW TAB PO SCH ×2 (09:26→22:50)
[2016-11-07] MEDS: ASPIRIN 81 MG TAB PO SCH (09:38)
--- NOTE | 2016-11-07 10:24 | CONS ---
Date/Time of Note Date/Time of Note DATE: 11/07/16 TIME: 10:24 Assessment/Plan Assessment/Plan Chief Complaint/Hosp Course Anemia S/P EGD ([facility]) Esophagitis POST BMBX- AT SO FINAL PATH - neg MONITOR BLOOD COUNT CLOSELY NSTEMI Multivessel CAD History of seizure History of alcoholism History of C difficile colitis Diabetes mellitus Problems: Consultation Date/Type/Reason Admit Date/Time Oct 27, 2016 at 22:32 Initial Consult Date 10/28/16 Type of Consultation: hemeonc 24 HR Interval Summary Free Text/Dictation ALL NOTED RECOVERING POST OP Exam/Review of Systems Vital Signs Vitals Vital Signs Date Time Temp Pulse Resp B/P Pulse Ox O2 Delivery O2 Flow Rate FiO2 11/07/16 08:33 74 11/07/16 07:36 97.8 18 115/65 97 11/06/16 20:00 21 11/06/16 20:00 Room Air 11/06/16 08:00 2.0 Intake and Output 11/06/16 11/06/16 11/07/16 15:00 23:00 07:00 Intake Total 635 ml 729 ml 650 ml Output Total 1120 ml 500 ml 500 ml Balance -485 ml 229 ml 150 ml Exam Constitutional: Alert, no distress Psych: Nl mood/affect Head: atraumatic, normocephalic Eyes: nl conjunctiva, nl lids Neck: non-tender, supple, No jvd Respiratory: clear to auscultation, No crackles/rales Cardiovascular: regular rate and rhythm Gastrointestinal: non-tender, soft Extremities: No clubbing, No cyanosis, No edema Neurological: Nl mental status, Nl speech Results Result Diagram: 11/07/16 0609 11/07/16 0609 Results 24 hrs Laboratory Tests Test 11/06/16 12:38 11/06/16 17:26 11/06/16 20:22 11/06/16 21:43 Bedside Glucose 171 114 88 83 Test 11/07/16 06:09 11/07/16 08:17 White Blood Count 6.6 # Red Blood Count 3.29 L Hemoglobin 8.3 L Hematocrit 26.9 L Mean Corpuscular Volume 81.8 L Mean Corpuscular Hemoglobin 25.2 L Mean Corpuscular Hemoglobin Concent 30.9 L Red Cell Distribution Width 15.3 H Platelet Count 213 Mean Platelet Volume 9.5 Neutrophils % 72.1 Lymphocytes % 14.4 L Monocytes % 8.3 Eosinophils % 4.5 Basophils % 0.2 Nucleated Red Blood Cells % 0.0 Neutrophils # 4.8 Lymphocytes # 1.0 Monocytes # 0.6 Eosinophils # 0.3 Basophils # 0.0 Nucleated Red Blood Cells # 0.0 Sodium Level 136 Potassium Level 4.0 Chloride Level 100 Carbon Dioxide Level 29 Anion Gap 11 Blood Urea Nitrogen 17 Creatinine 0.82 Glucose Level 115 Calcium Level 8.2 L Bedside Glucose 143 Medications Medications Current Medications Lorazepam (Ativan) 0.5 mg Q6H PRN IV ANXIETY; Start 10/28/16 at 04:00 Acetaminophen (Tylenol Supp) 650 mg Q6H PRN [place] PAIN LEVEL 1-3 OR FEVER Last administered on 11/02/16 22:15; Admin Dose 650 MG; Start 10/28/16 at 04:00 Aspirin (Aspirin) 81 mg DAILY PO Last administered on 11/07/16 09:38; Admin Dose 81 MG; Start 10/28/16 at 09:00 Atorvastatin Calcium (Lipitor) 40 mg HS PO Last administered on 11/06/16 21:44 ; Admin Dose 40 MG; Start 10/28/16 at 21:00 Metoprolol Tartrate (Lopressor) 25 mg BID PO Last administered on 11/07/16 09: 26; Admin Dose 25 MG; Start 10/28/16 at 09:00 Acetaminophen/ Hydrocodone Bitart ([place] (5/325)) 1 tab Q4H PRN PO MODERATE PAIN LEVEL 4-6 Last administered on 10/29/16 00:09; Admin Dose 1 TAB; Start at 00:00 Acetaminophen/ Hydrocodone Bitart ([place] (5/325)) 2 tab Q4H PRN PO SEVERE PAIN LEVEL 7-10; Start 10/29/16 at 00:00 Lactobacillus Acidoph/Bulgaricus (Floranex) 1 tab BID PO Last administered on 09:26; Admin Dose 1 TAB; Start 10/30/16 at 13:00 Mupirocin (Bactroban) 1 applic BID TOP Last administered on 11/07/16 09:26; Admin Dose 1 APPLIC; Start 10/31/16 at 09:00; Stop 11/15/16 at 23:00 Vancomycin HCl (Vanco Iv Per Pharmacy) PER PHARMACY DOSING NOTE XX ; Start 10/31 at 01:00 Lamotrigine (Lamictal) 200 mg BID PO Last administered on 11/07/16 09:25; Admin Dose 200 MG; Start 10/31/16 at 14:30 Miscellaneous Information 1 ea NOTE XX ; Start 10/31/16 at 13:30 Glucose (Glutose) 15 gm Q15M PRN PO DECREASED GLUCOSE; Start 10/31/16 at 13:30 Glucose (Glutose) 22.5 gm Q15M PRN PO DECREASED GLUCOSE; Start 10/31/16 at 13: 30 Dextrose (D50w Syringe) 25 ml Q15M PRN IV DECREASED GLUCOSE; Start 10/31/16 at 13:30 Dextrose (D50w Syringe) 50 ml Q15M PRN IV DECREASED GLUCOSE; Start 10/31/16 at 13:30 Glucagon (Glucagen) 1 mg Q15M PRN IM DECREASED GLUCOSE; Start 10/31/16 at 13:30 Glucose 15 gm 15 gm Q15M PRN BUCCAL DECREASED GLUCOSE; Start 10/31/16 at 13:30 Vancomycin HCl (Vancocin) 250 ml @ 125 mls/hr Q12H IVPB Last administered on 02:19; Admin Dose 125 MLS/HR; Start 11/02/16 at 02:00 Dextrose (D50w Syringe) 25 ml Q15M PRN IV Till BS 80 mg/dL or above x2; Start 11/02/16 at 19:30 Dextrose (D50w Syringe) 50 ml Q15M PRN IV Till BS 80 mg/dL or above x2; Start 11/02/16 at 19:30 Morphine Sulfate 3 mg 3 mg Q4H PRN IV PAIN LEVEL 7-10 Last administered on 11/03 08:35; Admin Dose 3 MG; Start 11/02/16 at 22:59 Ondansetron HCl 8 mg/Sodium Chloride 54 ml @ 216 mls/hr Q6H PRN IV NAUSEA AND/ OR VOMITING Last administered on 11/06/16 17:31; Admin Dose 216 MLS/HR; Start at 23:30 Meropenem (Merrem 500 Mg/ 100 ml (Pmx)) 100 ml @ 200 mls/hr Q8 IVPB Last administered on 11/07/16 07:08; Admin Dose 200 MLS/HR; Start 11/03/16 at 13:30 Insulin Glargine (Lantus) 15 unit DAILY@20 SC Last administered on 11/05/16 20 :07; Admin Dose 15 UNIT; Start 11/05/16 at 20:00 Miscellaneous Information (*Rx Drug Level Order Reminder*) VANCOMYCIN TROUGH 11/08 AT 0100 ONCE ONCE XX ; Start 11/08/16 at 01:00; Stop 11/08/16 at 01:01 BETO PADILLA MD Nov 07, 2016 10:24
--- NOTE | 2016-11-07 11:07 | PN ---
Date/Time of Note Date/Time of Note DATE: 11/07/16 TIME: 11:06 Assessment/Plan Lines/Catheters IV Catheter Type (from Nrsg): Peripheral IV Guerra in Place (from Nrsg): No Assessment/Plan Chief Complaint/Hosp Course MPRESSION: 1. Coronary artery disease. 2. Status post myocardial infarction. 3. Anemia. 4. Gastrointestinal bleeding. 5. Seizure disorder. 6. Peripheral vascular disease status post foot amputation. SP CABG CT removed Pulm toilet ambulation Problems: Subjective 24 Hr Interval Summary Constitutional: improved Pain Control: mild Exam/Review of Systems Vital Signs Vitals Vital Signs Date Time Temp Pulse Resp B/P Pulse Ox O2 Delivery O2 Flow Rate FiO2 11/07/16 08:33 74 11/07/16 07:36 97.8 18 115/65 97 11/06/16 20:00 21 11/06/16 20:00 Room Air 11/06/16 08:00 2.0 Intake and Output 11/06/16 11/06/16 11/07/16 15:00 23:00 07:00 Intake Total 635 ml 729 ml 650 ml Output Total 1120 ml 500 ml 500 ml Balance -485 ml 229 ml 150 ml Exam Neck: non-tender, supple Respiratory: clear to auscultation, normal air movement Cardiovascular: nl pulses, regular rate and rhythm Results Result Diagram: 11/07/1609 11/07/1609 JOAN WATTS MD Nov 07, 2016 11:06
[2016-11-07] MEDS: ONDANSETRON INJ 8 MG in SOD CHLORIDE 0.9% 50 ML IV PRN (11:19)
[2016-11-07] MEDS: morphine 4 MG/ML VIAL IV PRN (11:49)
[2016-11-07] MEDS: HYDROCODONE/APAP (5/325) TAB PO PRN (17:58)
--- NOTE | 2016-11-07 18:08 | CONS ---
Date/Time of Note Date/Time of Note DATE: 11/07/16 TIME: 18:05 Assessment/Plan Assessment/Plan Chief Complaint/Hosp Course SUBJECTIVE: Tx to tele, awake, lying comfortably in bed, no fevers ANTIMICROBIALS: 1. Vancomycin. 2. Merrem. PHYSICAL EXAMINATION: GENERAL: This is a well-nourished, well-developed elderly man who is awake, in no distress. HEENT: Atraumatic, normocephalic. Sclerae anicteric. Buccal mucosa dry. NECK: Supple. CHEST: Rise symmetrical. Breath sounds diminished to bases. HEART: S1, S2. ABDOMEN: Soft, bowel sounds present. EXTREMITIES: Without cyanosis. Trace edema. ASSESSMENT 1. Status post coronary artery bypass graft on 11/02/2016. 2. Healthcare-associated pneumonia. 3. Methicillin-resistant Staphylococcus aureus nares colonization. 4. Diabetes. 5. Hypertension. PLAN: Continues to improve. Continue present care, antibiotics, follow recommendations of consultants. DW staff Problems: Consultation Date/Type/Reason Admit Date/Time Oct 27, 2016 at 22:32 Initial Consult Date 10/28/16 Type of Consultation: id Exam/Review of Systems Vital Signs Vitals Vital Signs Date Time Temp Pulse Resp B/P Pulse Ox O2 Delivery O2 Flow Rate FiO2 11/07/16 16:12 67 11/07/16 15:50 97.8 18 142/78 100 11/07/16 12:47 Nasal Cannula 2.0 11/06/16 20:00 21 Intake and Output 11/06/16 11/06/16 11/07/16 15:00 23:00 07:00 Intake Total 635 ml 729 ml 650 ml Output Total 1120 ml 500 ml 500 ml Balance -485 ml 229 ml 150 ml Results Result Diagram: 11/07/16 0609 11/07/16 0609 Results 24 hrs Laboratory Tests Test 11/06/16 20:22 11/06/16 21:43 11/07/16 06:09 11/07/16 08:17 Bedside Glucose 88 83 143 White Blood Count 6.6 # Red Blood Count 3.29 L Hemoglobin 8.3 L Hematocrit 26.9 L Mean Corpuscular Volume 81.8 L Mean Corpuscular Hemoglobin 25.2 L Mean Corpuscular Hemoglobin Concent 30.9 L Red Cell Distribution Width 15.3 H Platelet Count 213 Mean Platelet Volume 9.5 Neutrophils % 72.1 Lymphocytes % 14.4 L Monocytes % 8.3 Eosinophils % 4.5 Basophils % 0.2 Nucleated Red Blood Cells % 0.0 Neutrophils # 4.8 Lymphocytes # 1.0 Monocytes # 0.6 Eosinophils # 0.3 Basophils # 0.0 Nucleated Red Blood Cells # 0.0 Sodium Level 136 Potassium Level 4.0 Chloride Level 100 Carbon Dioxide Level 29 Anion Gap 11 Blood Urea Nitrogen 17 Creatinine 0.82 Glucose Level 115 Calcium Level 8.2 L Test 11/07/16 11:23 11/07/16 12:51 Bedside Glucose 125 124 Medications Medications Current Medications Lorazepam (Ativan) 0.5 mg Q6H PRN IV ANXIETY; Start 10/28/16 at 04:00 Acetaminophen (Tylenol Supp) 650 mg Q6H PRN [place] PAIN LEVEL 1-3 OR FEVER Last administered on 11/02/16 22:15; Admin Dose 650 MG; Start 10/28/16 at 04:00 Aspirin (Aspirin) 81 mg DAILY PO Last administered on 11/07/16 09:38; Admin Dose 81 MG; Start 10/28/16 at 09:00 Atorvastatin Calcium (Lipitor) 40 mg HS PO Last administered on 11/06/16 21:44 ; Admin Dose 40 MG; Start 10/28/16 at 21:00 Metoprolol Tartrate (Lopressor) 25 mg BID PO Last administered on 11/07/16 09: 26; Admin Dose 25 MG; Start 10/28/16 at 09:00 Acetaminophen/ Hydrocodone Bitart ([place] (5/325)) 1 tab Q4H PRN PO MODERATE PAIN LEVEL 4-6 Last administered on 10/29/16 00:09; Admin Dose 1 TAB; Start at 00:00 Acetaminophen/ Hydrocodone Bitart ([place] (5/325)) 2 tab Q4H PRN PO SEVERE PAIN LEVEL 7-10 Last administered on 11/07/16 17:58; Admin Dose 2 TAB; Start at 00:00 Lactobacillus Acidoph/Bulgaricus (Floranex) 1 tab BID PO Last administered on 09:26; Admin Dose 1 TAB; Start 10/30/16 at 13:00 Mupirocin (Bactroban) 1 applic BID TOP Last administered on 11/07/16 09:26; Admin Dose 1 APPLIC; Start 10/31/16 at 09:00; Stop 11/15/16 at 23:00 Vancomycin HCl (Vanco Iv Per Pharmacy) PER PHARMACY DOSING NOTE XX ; Start 10/31 at 01:00 Lamotrigine (Lamictal) 200 mg BID PO Last administered on 11/07/16 09:25; Admin Dose 200 MG; Start 10/31/16 at 14:30 Miscellaneous Information 1 ea NOTE XX ; Start 10/31/16 at 13:30 Glucose (Glutose) 15 gm Q15M PRN PO DECREASED GLUCOSE; Start 10/31/16 at 13:30 Glucose (Glutose) 22.5 gm Q15M PRN PO DECREASED GLUCOSE; Start 10/31/16 at 13: 30 Dextrose (D50w Syringe) 25 ml Q15M PRN IV DECREASED GLUCOSE; Start 10/31/16 at 13:30 Dextrose (D50w Syringe) 50 ml Q15M PRN IV DECREASED GLUCOSE; Start 10/31/16 at 13:30 Glucagon (Glucagen) 1 mg Q15M PRN IM DECREASED GLUCOSE; Start 10/31/16 at 13:30 Glucose 15 gm 15 gm Q15M PRN BUCCAL DECREASED GLUCOSE; Start 10/31/16 at 13:30 Vancomycin HCl (Vancocin) 250 ml @ 125 mls/hr Q12H IVPB Last administered on 15:39; Admin Dose 125 MLS/HR; Start 11/02/16 at 02:00 Dextrose (D50w Syringe) 25 ml Q15M PRN IV Till BS 80 mg/dL or above x2; Start 11/02/16 at 19:30 Dextrose (D50w Syringe) 50 ml Q15M PRN IV Till BS 80 mg/dL or above x2; Start 11/02/16 at 19:30 Morphine Sulfate 3 mg 3 mg Q4H PRN IV PAIN LEVEL 7-10 Last administered on 11:49; Admin Dose 3 MG; Start 11/02/16 at 22:59 Ondansetron HCl 8 mg/Sodium Chloride 54 ml @ 216 mls/hr Q6H PRN IV NAUSEA AND/ OR VOMITING Last administered on 11/07/16 11:19; Admin Dose 216 MLS/HR; Start at 23:30 Meropenem (Merrem 500 Mg/ 100 ml (Pmx)) 100 ml @ 200 mls/hr Q8 IVPB Last administered on 11/07/16 14:33; Admin Dose 200 MLS/HR; Start 11/03/16 at 13:30 Insulin Glargine (Lantus) 15 unit DAILY@20 SC Last administered on 11/05/16 20 :07; Admin Dose 15 UNIT; Start 11/05/16 at 20:00 Miscellaneous Information (*Rx Drug Level Order Reminder*) VANCOMYCIN TROUGH 11/08 AT 0100 ONCE ONCE XX ; Start 11/08/16 at 01:00; Stop 11/08/16 at 01:01 CINDY PINA NP Nov 07, 2016 18:07
--- NOTE | 2016-11-07 18:47 | PN ---
Date/Time of Note Date/Time of Note DATE: 11/07/16 TIME: 18:44 Assessment/Plan VTE Prophylaxis VTE Prophylaxis Intervention: LMWH Lines/Catheters IV Catheter Type (from Nrs): Peripheral IV Urinary Cath still in place: No Assessment/Plan Chief Complaint/Hosp Course 1. Coronary artery disease, NSTEMI, s/p CABG on 11/02/2016 -DC per CTS 2. Hypotension-resolved 3. Diabetes mellitus, on insulin drip 4. H/o of upper GI bleeding with esophagitis on EGD, stable 5. Microcytic anemia Transfuse 1 unit of packed red blood cells today as patient is reporting some dizziness 6. Seizure disorder. stable 7. Peripheral vascular disease status post foot amputation 8. Disposition Patient will likely need to go to a rehab facility, case management to arrange PPx- Lovenox Problems: Subjective 24 Hr Interval Summary Neurologic: dizziness Exam/Review of Systems Vital Signs Vitals Vital Signs Date Time Temp Pulse Resp B/P Pulse Ox O2 Delivery O2 Flow Rate FiO2 11/07/16 16:12 67 11/07/16 15:50 97.8 18 142/78 100 11/07/16 12:47 Nasal Cannula 2.0 11/06/16 20:00 21 Intake and Output 11/06/16 11/06/16 11/07/16 15:00 23:00 07:00 Intake Total 635 ml 729 ml 650 ml Output Total 1120 ml 500 ml 500 ml Balance -485 ml 229 ml 150 ml Exam Constitutional: alert, oriented Respiratory: clear to auscultation Cardiovascular: regular rate and rhythm Gastrointestinal: soft, No distended Musculoskeletal: nl extremities to inspection Results Result Diagram: 11/07/16 0609 11/07/16 0609 Results 24 hrs Laboratory Tests Test 11/06/16 20:22 11/06/16 21:43 11/07/16 06:09 11/07/16 08:17 Bedside Glucose 88 83 143 White Blood Count 6.6 # Red Blood Count 3.29 L Hemoglobin 8.3 L Hematocrit 26.9 L Mean Corpuscular Volume 81.8 L Mean Corpuscular Hemoglobin 25.2 L Mean Corpuscular Hemoglobin Concent 30.9 L Red Cell Distribution Width 15.3 H Platelet Count 213 Mean Platelet Volume 9.5 Neutrophils % 72.1 Lymphocytes % 14.4 L Monocytes % 8.3 Eosinophils % 4.5 Basophils % 0.2 Nucleated Red Blood Cells % 0.0 Neutrophils # 4.8 Lymphocytes # 1.0 Monocytes # 0.6 Eosinophils # 0.3 Basophils # 0.0 Nucleated Red Blood Cells # 0.0 Sodium Level 136 Potassium Level 4.0 Chloride Level 100 Carbon Dioxide Level 29 Anion Gap 11 Blood Urea Nitrogen 17 Creatinine 0.82 Glucose Level 115 Calcium Level 8.2 L Test 11/07/16 11:23 11/07/16 12:51 11/07/16 17:48 Bedside Glucose 125 124 143 Medications Medications Current Medications Lorazepam (Ativan) 0.5 mg Q6H PRN IV ANXIETY; Start 10/28/16 at 04:00 Acetaminophen (Tylenol Supp) 650 mg Q6H PRN [place] PAIN LEVEL 1-3 OR FEVER Last administered on 11/02/16 22:15; Admin Dose 650 MG; Start 10/28/16 at 04:00 Aspirin (Aspirin) 81 mg DAILY PO Last administered on 11/07/16 09:38; Admin Dose 81 MG; Start 10/28/16 at 09:00 Atorvastatin Calcium (Lipitor) 40 mg HS PO Last administered on 11/06/16 21:44 ; Admin Dose 40 MG; Start 10/28/16 at 21:00 Metoprolol Tartrate (Lopressor) 25 mg BID PO Last administered on 11/07/16 09: 26; Admin Dose 25 MG; Start 10/28/16 at 09:00 Acetaminophen/ Hydrocodone Bitart ([place] (5/325)) 1 tab Q4H PRN PO MODERATE PAIN LEVEL 4-6 Last administered on 10/29/16 00:09; Admin Dose 1 TAB; Start at 00:00 Acetaminophen/ Hydrocodone Bitart ([place] (5/325)) 2 tab Q4H PRN PO SEVERE PAIN LEVEL 7-10 Last administered on 11/07/16 17:58; Admin Dose 2 TAB; Start at 00:00 Lactobacillus Acidoph/Bulgaricus (Floranex) 1 tab BID PO Last administered on 09:26; Admin Dose 1 TAB; Start 10/30/16 at 13:00 Mupirocin (Bactroban) 1 applic BID TOP Last administered on 11/07/16 09:26; Admin Dose 1 APPLIC; Start 10/31/16 at 09:00; Stop 11/15/16 at 23:00 Vancomycin HCl (Vanco Iv Per Pharmacy) PER PHARMACY DOSING NOTE XX ; Start 10/31 at 01:00 Lamotrigine (Lamictal) 200 mg BID PO Last administered on 11/07/16 09:25; Admin Dose 200 MG; Start 10/31/16 at 14:30 Miscellaneous Information 1 ea NOTE XX ; Start 10/31/16 at 13:30 Glucose (Glutose) 15 gm Q15M PRN PO DECREASED GLUCOSE; Start 10/31/16 at 13:30 Glucose (Glutose) 22.5 gm Q15M PRN PO DECREASED GLUCOSE; Start 10/31/16 at 13: 30 Dextrose (D50w Syringe) 25 ml Q15M PRN IV DECREASED GLUCOSE; Start 10/31/16 at 13:30 Dextrose (D50w Syringe) 50 ml Q15M PRN IV DECREASED GLUCOSE; Start 10/31/16 at 13:30 Glucagon (Glucagen) 1 mg Q15M PRN IM DECREASED GLUCOSE; Start 10/31/16 at 13:30 Glucose 15 gm 15 gm Q15M PRN BUCCAL DECREASED GLUCOSE; Start 10/31/16 at 13:30 Vancomycin HCl (Vancocin) 250 ml @ 125 mls/hr Q12H IVPB Last administered on 15:39; Admin Dose 125 MLS/HR; Start 11/02/16 at 02:00 Dextrose (D50w Syringe) 25 ml Q15M PRN IV Till BS 80 mg/dL or above x2; Start 11/02/16 at 19:30 Dextrose (D50w Syringe) 50 ml Q15M PRN IV Till BS 80 mg/dL or above x2; Start 11/02/16 at 19:30 Morphine Sulfate 3 mg 3 mg Q4H PRN IV PAIN LEVEL 7-10 Last administered on 11:49; Admin Dose 3 MG; Start 11/02/16 at 22:59 Ondansetron HCl 8 mg/Sodium Chloride 54 ml @ 216 mls/hr Q6H PRN IV NAUSEA AND/ OR VOMITING Last administered on 11/07/16 11:19; Admin Dose 216 MLS/HR; Start at 23:30 Meropenem (Merrem 500 Mg/ 100 ml (Pmx)) 100 ml @ 200 mls/hr Q8 IVPB Last administered on 11/07/16 14:33; Admin Dose 200 MLS/HR; Start 11/03/16 at 13:30 Insulin Glargine (Lantus) 15 unit DAILY@20 SC Last administered on 11/05/16 20 :07; Admin Dose 15 UNIT; Start 11/05/16 at 20:00 Miscellaneous Information (*Rx Drug Level Order Reminder*) VANCOMYCIN TROUGH 11/08 AT 0100 ONCE ONCE XX ; Start 11/08/16 at 01:00; Stop 11/08/16 at 01:01 GENO MORALES Nov 07, 2016 18:47
--- NOTE | 2016-11-07 19:57 | CONS ---
Date/Time of Note Date/Time of Note DATE: 11/07/16 TIME: 19:55 Assessment/Plan Assessment/Plan Chief Complaint/Hosp Course Assessment: Status post NSTEMI Coronary artery disease - status post CABG 11/02/2016 (CORTEZ-prox LAD-distal LAD, SVG-OM1, SVG-OM2-PDA, SVG-OM3) Acute on chronic diastolic heart failure - diuresed and thoracentesis at [facility], now euvolemic Seizure disorder - initial presentation was seizure Diabetes mellitus Anemia - bone marrow biopsy reported to be negative Esophagitis on EGD Status post right transmetatarsal amputation Healthcare-associated pneumonia - per infectious disease Recommendations: -pre-operative echocardiogram showed LVEF 55%, basal inferolateral and inferior hypokinesis -add losartan 25mg daily -continue metoprolol 25mg BID -continue aspirin -continue atorvastatin -post-operative care per surgery Problems: Consultation Date/Type/Reason Admit Date/Time Oct 27, 2016 at 22:32 Initial Consult Date 10/28/16 Type of Consultation: Cardiology 24 HR Interval Summary Free Text/Dictation Transferred out of ICU. Doing well. Detailed Summary Additional Comments 14 point review of systems without changes. Exam/Review of Systems Vital Signs Vitals Vital Signs Date Time Temp Pulse Resp B/P Pulse Ox O2 Delivery O2 Flow Rate FiO2 11/07/16 16:12 67 11/07/16 15:50 97.8 18 142/78 100 11/07/16 12:47 Nasal Cannula 2.0 11/06/16 20:00 21 Intake and Output 11/06/16 11/06/16 11/07/16 15:00 23:00 07:00 Intake Total 635 ml 729 ml 650 ml Output Total 1120 ml 500 ml 500 ml Balance -485 ml 229 ml 150 ml Exam Constitutional: Alert, no distress Psych: Nl mood/affect Head: atraumatic, normocephalic Eyes: nl conjunctiva, nl lids Neck: non-tender, supple, No jvd Respiratory: clear to auscultation, No crackles/rales Cardiovascular: regular rate and rhythm Gastrointestinal: non-tender, soft Extremities: No clubbing, No cyanosis, No edema Neurological: Nl mental status, Nl speech Results Result Diagram: 11/07/16 0609 11/07/16 0609 Results 24 hrs Laboratory Tests Test 11/06/16 20:22 11/06/16 21:43 11/07/16 06:09 11/07/16 08:17 Bedside Glucose 88 83 143 White Blood Count 6.6 # Red Blood Count 3.29 L Hemoglobin 8.3 L Hematocrit 26.9 L Mean Corpuscular Volume 81.8 L Mean Corpuscular Hemoglobin 25.2 L Mean Corpuscular Hemoglobin Concent 30.9 L Red Cell Distribution Width 15.3 H Platelet Count 213 Mean Platelet Volume 9.5 Neutrophils % 72.1 Lymphocytes % 14.4 L Monocytes % 8.3 Eosinophils % 4.5 Basophils % 0.2 Nucleated Red Blood Cells % 0.0 Neutrophils # 4.8 Lymphocytes # 1.0 Monocytes # 0.6 Eosinophils # 0.3 Basophils # 0.0 Nucleated Red Blood Cells # 0.0 Sodium Level 136 Potassium Level 4.0 Chloride Level 100 Carbon Dioxide Level 29 Anion Gap 11 Blood Urea Nitrogen 17 Creatinine 0.82 Glucose Level 115 Calcium Level 8.2 L Test 11/07/16 11:23 11/07/16 12:51 11/07/16 17:48 Bedside Glucose 125 124 143 Medications Medications Current Medications Lorazepam (Ativan) 0.5 mg Q6H PRN IV ANXIETY; Start 10/28/16 at 04:00 Acetaminophen (Tylenol Supp) 650 mg Q6H PRN [place] PAIN LEVEL 1-3 OR FEVER Last administered on 11/02/16 22:15; Admin Dose 650 MG; Start 10/28/16 at 04:00 Aspirin (Aspirin) 81 mg DAILY PO Last administered on 11/07/16 09:38; Admin Dose 81 MG; Start 10/28/16 at 09:00 Atorvastatin Calcium (Lipitor) 40 mg HS PO Last administered on 11/06/16 21:44 ; Admin Dose 40 MG; Start 10/28/16 at 21:00 Metoprolol Tartrate (Lopressor) 25 mg BID PO Last administered on 11/07/16 09: 26; Admin Dose 25 MG; Start 10/28/16 at 09:00 Acetaminophen/ Hydrocodone Bitart ([place] (5/325)) 1 tab Q4H PRN PO MODERATE PAIN LEVEL 4-6 Last administered on 10/29/16 00:09; Admin Dose 1 TAB; Start at 00:00 Acetaminophen/ Hydrocodone Bitart ([place] (5/325)) 2 tab Q4H PRN PO SEVERE PAIN LEVEL 7-10 Last administered on 11/07/16 17:58; Admin Dose 2 TAB; Start at 00:00 Lactobacillus Acidoph/Bulgaricus (Floranex) 1 tab BID PO Last administered on 09:26; Admin Dose 1 TAB; Start 10/30/16 at 13:00 Mupirocin (Bactroban) 1 applic BID TOP Last administered on 11/07/16 09:26; Admin Dose 1 APPLIC; Start 10/31/16 at 09:00; Stop 11/15/16 at 23:00 Vancomycin HCl (Vanco Iv Per Pharmacy) PER PHARMACY DOSING NOTE XX ; Start 10/31 at 01:00 Lamotrigine (Lamictal) 200 mg BID PO Last administered on 11/07/16 09:25; Admin Dose 200 MG; Start 10/31/16 at 14:30 Miscellaneous Information 1 ea NOTE XX ; Start 10/31/16 at 13:30 Glucose (Glutose) 15 gm Q15M PRN PO DECREASED GLUCOSE; Start 10/31/16 at 13:30 Glucose (Glutose) 22.5 gm Q15M PRN PO DECREASED GLUCOSE; Start 10/31/16 at 13: 30 Dextrose (D50w Syringe) 25 ml Q15M PRN IV DECREASED GLUCOSE; Start 10/31/16 at 13:30 Dextrose (D50w Syringe) 50 ml Q15M PRN IV DECREASED GLUCOSE; Start 10/31/16 at 13:30 Glucagon (Glucagen) 1 mg Q15M PRN IM DECREASED GLUCOSE; Start 10/31/16 at 13:30 Glucose 15 gm 15 gm Q15M PRN BUCCAL DECREASED GLUCOSE; Start 10/31/16 at 13:30 Vancomycin HCl (Vancocin) 250 ml @ 125 mls/hr Q12H IVPB Last administered on 15:39; Admin Dose 125 MLS/HR; Start 11/02/16 at 02:00 Dextrose (D50w Syringe) 25 ml Q15M PRN IV Till BS 80 mg/dL or above x2; Start 11/02/16 at 19:30 Dextrose (D50w Syringe) 50 ml Q15M PRN IV Till BS 80 mg/dL or above x2; Start 11/02/16 at 19:30 Morphine Sulfate 3 mg 3 mg Q4H PRN IV PAIN LEVEL 7-10 Last administered on 11:49; Admin Dose 3 MG; Start 11/02/16 at 22:59 Ondansetron HCl 8 mg/Sodium Chloride 54 ml @ 216 mls/hr Q6H PRN IV NAUSEA AND/ OR VOMITING Last administered on 11/07/16 11:19; Admin Dose 216 MLS/HR; Start at 23:30 Meropenem (Merrem 500 Mg/ 100 ml (Pmx)) 100 ml @ 200 mls/hr Q8 IVPB Last administered on 11/07/16 14:33; Admin Dose 200 MLS/HR; Start 11/03/16 at 13:30 Insulin Glargine (Lantus) 15 unit DAILY@20 SC Last administered on 11/05/16 20 :07; Admin Dose 15 UNIT; Start 11/05/16 at 20:00 Miscellaneous Information (*Rx Drug Level Order Reminder*) VANCOMYCIN TROUGH 11/08 AT 0100 ONCE ONCE XX ; Start 11/08/16 at 01:00; Stop 11/08/16 at 01:01 NANCIE HUGHES MD Nov 07, 2016 19:56
[2016-11-07] MEDS: ATORVASTATIN 40 MG TAB PO SCH (22:50)
[2016-11-07] MEDS: INSULIN GLARGINE [LANtus] 3 ML PEN SC SCH (23:01)
[2016-11-08] VITALS (13 sets, daily range): BP systolic 92–121; BP diastolic 53–69; PULSE 68–73; RESP 18–20
[2016-11-08] MEDS: VANCOMYCIN 1.25 GM in SOD CHLORIDE 0.9% 250 ML IVPB SCH ×2 (04:14→17:02)
[2016-11-08] MEDS: ONDANSETRON INJ 8 MG in SOD CHLORIDE 0.9% 50 ML IV PRN ×3 (04:21→22:17)
[2016-11-08] MEDS: INSULIN ASPART [NOVOLOG] 3 ML PEN SC SCH ×7 (07:55→21:15)
[2016-11-08 08:00] LABS: ADD SCAN DIFF NO
[2016-11-08] MEDS: MEROPENEM 500 MG/100 ML (PMX) 100 ML IVPB SCH ×3 (08:06→22:17)
[2016-11-08 08:10] LABS: BASOPHILS % 0.1 % (0.0-2.0); EOSINOPHILS # 0.5 10^3/ul (0.0-0.5); EOSINOPHILS % 6.4 % (0.0-7.0); HEMATOCRIT 28.4 % (42.0-52.0); HEMOGLOBIN 8.8 g/dl (14.0-18.0); LYMPHOCYTES % 14.2 % (15.0-51.0); MEAN CORPUSCULAR HEMOGLOBIN 25.3 pg (29.0-33.0); MEAN CORPUSCULAR VOLUME 81.6 fl (82.0-101.0); MEAN PLATELET VOLUME 9.8 fl (7.4-10.4); MONOCYTE # 0.6 10^3/ul (0.3-0.9); MONOCYTES % 8.8 % (0.0-11.0); NEUTROPHIL # 5.1 10^3/ul (1.6-7.5); NEUTROPHILS % 70.1 % (39.0-77.0); PLATELET COUNT 217 10^3/UL (140-415); RED BLOOD COUNT 3.48 10^6/ul (4.70-6.10); RED CELL DISTRIBUTION WIDTH 15.5 % (11.5-14.5); WHITE BLOOD COUNT 7.3 10^3/ul (4.8-10.8)
[2016-11-08 08:26] LABS: POTASSIUM 4.2 mmol/L (3.5-5.1)
[2016-11-08] MEDS: VANCOMYCIN 1 GM in NS 250 ML IVPB SCH (08:26)
[2016-11-08 08:29] LABS: CREATININE 0.83 mg/dl (0.61-1.24)
[2016-11-08] MEDS: METOPROLOL 25 MG TAB PO SCH ×2 (09:58→20:52)
[2016-11-08] MEDS: LOSARTAN 25 MG TAB PO SCH (09:58)
[2016-11-08] MEDS: ASPIRIN 81 MG TAB PO SCH (09:58)
[2016-11-08] MEDS: LAMOTRIGINE 100 MG TAB PO SCH ×2 (09:59→20:51)
[2016-11-08] MEDS: LACTOBACILLUS CHEW TAB PO SCH ×2 (09:59→20:51)
[2016-11-08] MEDS: MUPIROCIN 2% 22 GM OINT TOP SCH ×2 (09:59→21:17)
[2016-11-08] MEDS: HYDROCODONE/APAP (5/325) TAB PO PRN (09:59)
[2016-11-08] MEDS: METOCLOPRAMIDE 10 MG INJ IV SCH ×2 (12:57→18:21)
--- NOTE | 2016-11-08 12:57 | PN ---
Date/Time of Note Date/Time of Note DATE: 11/08/16 TIME: 12:50 Assessment/Plan VTE Prophylaxis VTE Prophylaxis Intervention: LMWH Lines/Catheters IV Catheter Type (from Nrs): Peripheral IV Urinary Cath still in place: No Assessment/Plan Assessment/Plan 1. Coronary artery disease, NSTEMI, s/p CABG on 11/02/2016 2. Hypotension-resolved 3. Diabetes mellitus type 2 : well controlled on Lantus and Premeal insulin 4. H/o of upper GI bleeding with esophagitis on EGD, stable 5. Microcytic anemia 2/2 chronic GI bleed s/p transfusion with improved hgb 6. Chronic Seizure disorder. stable 7. Peripheral vascular disease status post foot amputation 8. Nausea likely 2/2 Constipation + probable underlying DM gastroparesis Disposition * Treat constipation and nausea * Continue post op mgt and supportive care * Patient might already have placement , will d/w CM PPx- Lovenox Subjective 24 Hr Interval Summary Free Text/Dictation c/o nausea no bm x 2days Exam/Review of Systems Vital Signs Vitals Vital Signs Date Time Temp Pulse Resp B/P Pulse Ox O2 Delivery O2 Flow Rate FiO2 11/08/16 12:22 69 11/08/16 11:05 98.8 20 96/61 92 11/07/16 20:00 3.0 11/07/16 12:47 Nasal Cannula 11/06/16 20:00 21 Intake and Output 11/07/16 11/07/16 11/08/16 15:00 23:00 07:00 Intake Total 1204 ml Output Total 1500 ml Balance -296 ml Exam Constitutional: alert, obese, oriented Head: normocephalic Eyes: PERRL ENMT: mucosa pink and moist Neck: supple Respiratory: clear to auscultation, diminished breath sounds, No crackles/rales, No wheezing Cardiovascular: regular rate and rhythm, No murmurs/extra sounds Gastrointestinal: bowel sounds, non-tender, soft, No ascites Extremities: other (s/p transmetatarsl amputation R foot), No edema Neurological: lethargic Results Result Diagram: 11/08/16 0710 11/08/16 0710 Results 24 hrs Laboratory Tests Test 11/07/16 12:51 11/07/16 17:48 11/07/16 22:57 11/08/16 00:49 Bedside Glucose 124 143 138 Vancomycin Level Trough 9.9 L Test 11/08/16 07:10 11/08/16 08:05 11/08/16 09:21 11/08/16 11:45 White Blood Count 7.3 Red Blood Count 3.48 L Hemoglobin 8.8 L Hematocrit 28.4 L Mean Corpuscular Volume 81.6 L Mean Corpuscular Hemoglobin 25.3 L Mean Corpuscular Hemoglobin Concent 31.0 L Red Cell Distribution Width 15.5 H Platelet Count 217 Mean Platelet Volume 9.8 Neutrophils % 70.1 Lymphocytes % 14.2 L Monocytes % 8.8 Eosinophils % 6.4 Basophils % 0.1 Nucleated Red Blood Cells % 0.0 Neutrophils # 5.1 Lymphocytes # 1.0 Monocytes # 0.6 Eosinophils # 0.5 Basophils # 0.0 Nucleated Red Blood Cells # 0.0 Sodium Level 135 Potassium Level 4.2 Chloride Level 102 Carbon Dioxide Level 27 Anion Gap 10 Blood Urea Nitrogen 17 Creatinine 0.83 Glucose Level 114 Calcium Level 8.0 L Bedside Glucose 115 136 Lab Scanned Report REFERENCE LAB Medications Medications Current Medications Lorazepam (Ativan) 0.5 mg Q6H PRN IV ANXIETY; Start 10/28/16 at 04:00 Acetaminophen (Tylenol Supp) 650 mg Q6H PRN [place] PAIN LEVEL 1-3 OR FEVER Last administered on 11/02/16 22:15; Admin Dose 650 MG; Start 10/28/16 at 04:00 Aspirin (Aspirin) 81 mg DAILY PO Last administered on 11/08/16 09:58; Admin Dose 81 MG; Start 10/28/16 at 09:00 Atorvastatin Calcium (Lipitor) 40 mg HS PO Last administered on 11/07/16 22:50 ; Admin Dose 40 MG; Start 10/28/16 at 21:00 Metoprolol Tartrate (Lopressor) 25 mg BID PO Last administered on 11/08/16 09: 58; Admin Dose 25 MG; Start 10/28/16 at 09:00 Acetaminophen/ Hydrocodone Bitart ([place] (5/325)) 1 tab Q4H PRN PO MODERATE PAIN LEVEL 4-6 Last administered on 10/29/16 00:09; Admin Dose 1 TAB; Start at 00:00 Acetaminophen/ Hydrocodone Bitart ([place] (5/325)) 2 tab Q4H PRN PO SEVERE PAIN LEVEL 7-10 Last administered on 11/08/16 09:59; Admin Dose 2 TAB; Start at 00:00 Lactobacillus Acidoph/Bulgaricus (Floranex) 1 tab BID PO Last administered on 09:59; Admin Dose 1 TAB; Start 10/30/16 at 13:00 Mupirocin (Bactroban) 1 applic BID TOP Last administered on 11/08/16 09:59; Admin Dose 1 APPLIC; Start 10/31/16 at 09:00; Stop 11/15/16 at 23:00 Vancomycin HCl (Vanco Iv Per Pharmacy) PER PHARMACY DOSING NOTE XX ; Start 10/31 at 01:00 Lamotrigine (Lamictal) 200 mg BID PO Last administered on 11/08/16 09:59; Admin Dose 200 MG; Start 10/31/16 at 14:30 Miscellaneous Information 1 ea NOTE XX ; Start 10/31/16 at 13:30 Glucose (Glutose) 15 gm Q15M PRN PO DECREASED GLUCOSE; Start 10/31/16 at 13:30 Glucose (Glutose) 22.5 gm Q15M PRN PO DECREASED GLUCOSE; Start 10/31/16 at 13: 30 Dextrose (D50w Syringe) 25 ml Q15M PRN IV DECREASED GLUCOSE; Start 10/31/16 at 13:30 Dextrose (D50w Syringe) 50 ml Q15M PRN IV DECREASED GLUCOSE; Start 10/31/16 at 13:30 Glucagon (Glucagen) 1 mg Q15M PRN IM DECREASED GLUCOSE; Start 10/31/16 at 13:30 Glucose (Glutose) 15 gm Q15M PRN BUCCAL DECREASED GLUCOSE; Start 10/31/16 at 13 :30 Dextrose (D50w Syringe) 25 ml Q15M PRN IV Till BS 80 mg/dL or above x2; Start 11/02/16 at 19:30 Dextrose (D50w Syringe) 50 ml Q15M PRN IV Till BS 80 mg/dL or above x2; Start 11/02/16 at 19:30 Morphine Sulfate 3 mg 3 mg Q4H PRN [place] PAIN LEVEL 7-10 Last administered on 11:49; Admin Dose 3 MG; Start 11/02/16 at 22:59 Ondansetron HCl 8 mg/Sodium Chloride 54 ml @ 216 mls/hr Q6H PRN IV NAUSEA AND/ OR VOMITING Last administered on 11/08/16 11:48; Admin Dose 216 MLS/HR; Start at 23:30 Meropenem (Merrem 500 Mg/ 100 ml (Pmx)) 100 ml @ 200 mls/hr Q8 IVPB Last administered on 11/08/16 08:06; Admin Dose 200 MLS/HR; Start 11/03/16 at 13:30 Insulin Glargine (Lantus) 15 unit DAILY@20 SC Last administered on 11/07/16 23: 01; Admin Dose 15 UNIT; Start 11/05/16 at 20:00 Losartan Potassium 25 mg 25 mg DAILY PO Last administered on 11/08/16 09:58; Admin Dose 25 MG; Start 11/08/16 at 09:00 Vancomycin HCl/ Sodium Chloride (Vancocin/NS) 250 ml @ 83.333 mls/ hr Q12H IVPB Last administered on 11/08/16 04:14; Admin Dose 83.333 MLS/HR; Start at 04:00 Metoclopramide HCl (Reglan) 10 mg Q6H IV ; Start 11/08/16 at 13:00; Stop 11/10/16 at 12:59 Magnesium Citrate (Citroma) 300 ml ONCE ONCE PO ; Start 11/08/16 at 13:00; Stop 11/08/16 at 13:01 Docusate Sodium (Colace) 100 mg BID PO ; Start 11/08/16 at 21:00 TOMMY RAMOS Nov 08, 2016 12:56
[2016-11-08] MEDS: MAGNESIUM CITRATE 300 ML BTL PO ONE ×2 (14:16→15:59)
--- NOTE | 2016-11-08 14:43 | CONS ---
Date/Time of Note Date/Time of Note DATE: 11/08/16 TIME: 14:42 Assessment/Plan Assessment/Plan Chief Complaint/Hosp Course SUBJECTIVE: Awake, c/o nausea, s/p Zofran, no vomiting/fevers/diarrhea, NAD ANTIMICROBIALS: 1. Vancomycin. 2. Merrem. PHYSICAL EXAMINATION: GENERAL: This is a well-nourished, well-developed elderly man who is awake, in no distress. HEENT: Atraumatic, normocephalic. Sclerae anicteric. Buccal mucosa dry. NECK: Supple. CHEST: Rise symmetrical. Breath sounds diminished to bases. HEART: S1, S2. ABDOMEN: Soft, bowel sounds present. EXTREMITIES: Without cyanosis. Trace edema. ASSESSMENT 1. Status post coronary artery bypass graft on 11/02/2016. 2. Healthcare-associated pneumonia. 3. Methicillin-resistant Staphylococcus aureus nares colonization. 4. Diabetes. 5. Hypertension. PLAN: Stable. Continue present care, antibiotics, follow recommendations of consultants, cxr in am. DW staff Problems: Consultation Date/Type/Reason Admit Date/Time Oct 27, 2016 at 22:32 Initial Consult Date 10/28/16 Type of Consultation: ID Exam/Review of Systems Vital Signs Vitals Vital Signs Date Time Temp Pulse Resp B/P Pulse Ox O2 Delivery O2 Flow Rate FiO2 11/08/16 12:22 69 11/08/16 11:05 98.8 20 96/61 92 11/07/16 20:00 3.0 11/07/16 12:47 Nasal Cannula 11/06/16 20:00 21 Intake and Output 11/07/16 11/07/16 11/08/16 15:00 23:00 07:00 Intake Total 1204 ml Output Total 1500 ml Balance -296 ml Results Result Diagram: 11/08/16 0710 11/08/16 0710 Results 24 hrs Laboratory Tests Test 11/07/16 17:48 11/07/16 22:57 11/08/16 00:49 11/08/16 07:10 Bedside Glucose 143 138 Vancomycin Level Trough 9.9 L White Blood Count 7.3 Red Blood Count 3.48 L Hemoglobin 8.8 L Hematocrit 28.4 L Mean Corpuscular Volume 81.6 L Mean Corpuscular Hemoglobin 25.3 L Mean Corpuscular Hemoglobin Concent 31.0 L Red Cell Distribution Width 15.5 H Platelet Count 217 Mean Platelet Volume 9.8 Neutrophils % 70.1 Lymphocytes % 14.2 L Monocytes % 8.8 Eosinophils % 6.4 Basophils % 0.1 Nucleated Red Blood Cells % 0.0 Neutrophils # 5.1 Lymphocytes # 1.0 Monocytes # 0.6 Eosinophils # 0.5 Basophils # 0.0 Nucleated Red Blood Cells # 0.0 Sodium Level 135 Potassium Level 4.2 Chloride Level 102 Carbon Dioxide Level 27 Anion Gap 10 Blood Urea Nitrogen 17 Creatinine 0.83 Glucose Level 114 Calcium Level 8.0 L Test 11/08/16 08:05 11/08/16 09:21 11/08/16 11:45 Bedside Glucose 115 136 Lab Scanned Report REFERENCE LAB Medications Medications Current Medications Lorazepam (Ativan) 0.5 mg Q6H PRN IV ANXIETY; Start 10/28/16 at 04:00 Acetaminophen (Tylenol Supp) 650 mg Q6H PRN [place] PAIN LEVEL 1-3 OR FEVER Last administered on 11/02/16 22:15; Admin Dose 650 MG; Start 10/28/16 at 04:00 Aspirin (Aspirin) 81 mg DAILY PO Last administered on 11/08/16 09:58; Admin Dose 81 MG; Start 10/28/16 at 09:00 Atorvastatin Calcium (Lipitor) 40 mg HS PO Last administered on 11/07/16 22:50 ; Admin Dose 40 MG; Start 10/28/16 at 21:00 Metoprolol Tartrate (Lopressor) 25 mg BID PO Last administered on 11/08/16 09: 58; Admin Dose 25 MG; Start 10/28/16 at 09:00 Acetaminophen/ Hydrocodone Bitart ([place] (5/325)) 1 tab Q4H PRN PO MODERATE PAIN LEVEL 4-6 Last administered on 10/29/16 00:09; Admin Dose 1 TAB; Start at 00:00 Acetaminophen/ Hydrocodone Bitart ([place] (5/325)) 2 tab Q4H PRN PO SEVERE PAIN LEVEL 7-10 Last administered on 11/08/16 09:59; Admin Dose 2 TAB; Start at 00:00 Lactobacillus Acidoph/Bulgaricus (Floranex) 1 tab BID PO Last administered on 09:59; Admin Dose 1 TAB; Start 10/30/16 at 13:00 Mupirocin (Bactroban) 1 applic BID TOP Last administered on 11/08/16 09:59; Admin Dose 1 APPLIC; Start 10/31/16 at 09:00; Stop 11/15/16 at 23:00 Vancomycin HCl (Vanco Iv Per Pharmacy) PER PHARMACY DOSING NOTE XX ; Start 10/31 at 01:00 Lamotrigine (Lamictal) 200 mg BID PO Last administered on 11/08/16 09:59; Admin Dose 200 MG; Start 10/31/16 at 14:30 Miscellaneous Information 1 ea NOTE XX ; Start 10/31/16 at 13:30 Glucose (Glutose) 15 gm Q15M PRN PO DECREASED GLUCOSE; Start 10/31/16 at 13:30 Glucose (Glutose) 22.5 gm Q15M PRN PO DECREASED GLUCOSE; Start 10/31/16 at 13: 30 Dextrose (D50w Syringe) 25 ml Q15M PRN IV DECREASED GLUCOSE; Start 10/31/16 at 13:30 Dextrose (D50w Syringe) 50 ml Q15M PRN IV DECREASED GLUCOSE; Start 10/31/16 at 13:30 Glucagon (Glucagen) 1 mg Q15M PRN IM DECREASED GLUCOSE; Start 10/31/16 at 13:30 Glucose (Glutose) 15 gm Q15M PRN BUCCAL DECREASED GLUCOSE; Start 10/31/16 at 13 :30 Dextrose (D50w Syringe) 25 ml Q15M PRN IV Till BS 80 mg/dL or above x2; Start 11/02/16 at 19:30 Dextrose (D50w Syringe) 50 ml Q15M PRN IV Till BS 80 mg/dL or above x2; Start 11/02/16 at 19:30 Morphine Sulfate 3 mg 3 mg Q4H PRN IV PAIN LEVEL 7-10 Last administered on 11:49; Admin Dose 3 MG; Start 11/02/16 at 22:59 Ondansetron HCl 8 mg/Sodium Chloride 54 ml @ 216 mls/hr Q6H PRN IV NAUSEA AND/ OR VOMITING Last administered on 11/08/16 11:48; Admin Dose 216 MLS/HR; Start at 23:30 Meropenem (Merrem 500 Mg/ 100 ml (Pmx)) 100 ml @ 200 mls/hr Q8 IVPB Last administered on 11/08/16 14:15; Admin Dose 200 MLS/HR; Start 11/03/16 at 13:30 Insulin Glargine (Lantus) 15 unit DAILY@20 SC Last administered on 11/07/16 23: 01; Admin Dose 15 UNIT; Start 11/05/16 at 20:00 Losartan Potassium 25 mg 25 mg DAILY PO Last administered on 11/08/16 09:58; Admin Dose 25 MG; Start 11/08/16 at 09:00 Vancomycin HCl/ Sodium Chloride (Vancocin/NS) 250 ml @ 83.333 mls/ hr Q12H IVPB Last administered on 11/08/16 04:14; Admin Dose 83.333 MLS/HR; Start at 04:00 Metoclopramide HCl (Reglan) 10 mg Q6H IV Last administered on 11/08/16 12:57; Admin Dose 10 MG; Start 11/08/16 at 13:00; Stop 11/10/16 at 12:59 Docusate Sodium (Colace) 100 mg BID PO ; Start 11/08/16 at 21:00 CINDY PINA NP Nov 08, 2016 14:43
--- NOTE | 2016-11-08 17:28 | CONS ---
Date/Time of Note Date/Time of Note DATE: 11/08/16 TIME: 17:27 Assessment/Plan Assessment/Plan Chief Complaint/Hosp Course Assessment: Status post NSTEMI Coronary artery disease - status post CABG 11/02/2016 (CORTEZ-prox LAD-distal LAD, SVG-OM1, SVG-OM2-PDA, SVG-OM3) Acute on chronic diastolic heart failure - diuresed and thoracentesis at [facility], now euvolemic Seizure disorder - initial presentation was seizure Diabetes mellitus Anemia - bone marrow biopsy reported to be negative Esophagitis on EGD Status post right transmetatarsal amputation Healthcare-associated pneumonia - per infectious disease Recommendations: -pre-operative echocardiogram showed LVEF 55%, basal inferolateral and inferior hypokinesis -continue losartan 25mg daily and metoprolol 25mg BID -continue aspirin -continue atorvastatin -post-operative care per surgery Problems: Consultation Date/Type/Reason Admit Date/Time Oct 27, 2016 at 22:32 Initial Consult Date 10/28/16 Type of Consultation: Cardiology 24 HR Interval Summary Free Text/Dictation Had pRBC transfusions yesterday. No acute events. No chest pain or shortness of breath. Detailed Summary Additional Comments 14 point review of systems without changes. Exam/Review of Systems Vital Signs Vitals Vital Signs Date Time Temp Pulse Resp B/P Pulse Ox O2 Delivery O2 Flow Rate FiO2 11/08/16 16:34 68 11/08/16 16:00 97.9 20 113/68 94 11/08/16 09:00 3.0 11/07/16 12:47 Nasal Cannula 11/06/16 20:00 21 Intake and Output 11/07/16 11/07/16 11/08/16 15:00 23:00 07:00 Intake Total 1204 ml Output Total 1500 ml Balance -296 ml Exam Constitutional: Alert, no distress Psych: Nl mood/affect Head: atraumatic, normocephalic Eyes: nl conjunctiva, nl lids Neck: non-tender, supple, No jvd Respiratory: clear to auscultation, No crackles/rales Cardiovascular: regular rate and rhythm Gastrointestinal: non-tender, soft Extremities: No clubbing, No cyanosis, No edema Neurological: Nl mental status, Nl speech Results Result Diagram: 11/08/16 0710 11/08/16 0710 Results 24 hrs Laboratory Tests Test 11/07/16 17:48 11/07/16 22:57 11/08/16 00:49 11/08/16 07:10 Bedside Glucose 143 138 Vancomycin Level Trough 9.9 L White Blood Count 7.3 Red Blood Count 3.48 L Hemoglobin 8.8 L Hematocrit 28.4 L Mean Corpuscular Volume 81.6 L Mean Corpuscular Hemoglobin 25.3 L Mean Corpuscular Hemoglobin Concent 31.0 L Red Cell Distribution Width 15.5 H Platelet Count 217 Mean Platelet Volume 9.8 Neutrophils % 70.1 Lymphocytes % 14.2 L Monocytes % 8.8 Eosinophils % 6.4 Basophils % 0.1 Nucleated Red Blood Cells % 0.0 Neutrophils # 5.1 Lymphocytes # 1.0 Monocytes # 0.6 Eosinophils # 0.5 Basophils # 0.0 Nucleated Red Blood Cells # 0.0 Sodium Level 135 Potassium Level 4.2 Chloride Level 102 Carbon Dioxide Level 27 Anion Gap 10 Blood Urea Nitrogen 17 Creatinine 0.83 Glucose Level 114 Calcium Level 8.0 L Test 11/08/16 08:05 11/08/16 09:21 11/08/16 11:45 11/08/16 17:24 Bedside Glucose 115 136 158 Lab Scanned Report REFERENCE LAB Medications Medications Current Medications Lorazepam (Ativan) 0.5 mg Q6H PRN IV ANXIETY; Start 10/28/16 at 04:00 Acetaminophen (Tylenol Supp) 650 mg Q6H PRN IN PAIN LEVEL 1-3 OR FEVER Last administered on 11/02/16 22:15; Admin Dose 650 MG; Start 10/28/16 at 04:00 Aspirin (Aspirin) 81 mg DAILY PO Last administered on 11/08/16 09:58; Admin Dose 81 MG; Start 10/28/16 at 09:00 Atorvastatin Calcium (Lipitor) 40 mg HS PO Last administered on 11/07/16 22:50 ; Admin Dose 40 MG; Start 10/28/16 at 21:00 Metoprolol Tartrate (Lopressor) 25 mg BID PO Last administered on 11/08/16 09: 58; Admin Dose 25 MG; Start 10/28/16 at 09:00 Acetaminophen/ Hydrocodone Bitart ([place] (5/325)) 1 tab Q4H PRN PO MODERATE PAIN LEVEL 4-6 Last administered on 10/29/16 00:09; Admin Dose 1 TAB; Start at 00:00 Acetaminophen/ Hydrocodone Bitart ([place] (5/325)) 2 tab Q4H PRN PO SEVERE PAIN LEVEL 7-10 Last administered on 11/08/16 09:59; Admin Dose 2 TAB; Start at 00:00 Lactobacillus Acidoph/Bulgaricus (Floranex) 1 tab BID PO Last administered on 09:59; Admin Dose 1 TAB; Start 10/30/16 at 13:00 Mupirocin (Bactroban) 1 applic BID TOP Last administered on 11/08/16 09:59; Admin Dose 1 APPLIC; Start 10/31/16 at 09:00; Stop 11/15/16 at 23:00 Vancomycin HCl (Vanco Iv Per Pharmacy) PER PHARMACY DOSING NOTE XX ; Start 10/31 at 01:00 Lamotrigine (Lamictal) 200 mg BID PO Last administered on 11/08/16 09:59; Admin Dose 200 MG; Start 10/31/16 at 14:30 Miscellaneous Information 1 ea NOTE XX ; Start 10/31/16 at 13:30 Glucose (Glutose) 15 gm Q15M PRN PO DECREASED GLUCOSE; Start 10/31/16 at 13:30 Glucose (Glutose) 22.5 gm Q15M PRN PO DECREASED GLUCOSE; Start 10/31/16 at 13: 30 Dextrose (D50w Syringe) 25 ml Q15M PRN IV DECREASED GLUCOSE; Start 10/31/16 at 13:30 Dextrose (D50w Syringe) 50 ml Q15M PRN IV DECREASED GLUCOSE; Start 10/31/16 at 13:30 Glucagon (Glucagen) 1 mg Q15M PRN IM DECREASED GLUCOSE; Start 10/31/16 at 13:30 Glucose (Glutose) 15 gm Q15M PRN BUCCAL DECREASED GLUCOSE; Start 10/31/16 at 13 :30 Dextrose (D50w Syringe) 25 ml Q15M PRN IV Till BS 80 mg/dL or above x2; Start 11/02/16 at 19:30 Dextrose (D50w Syringe) 50 ml Q15M PRN IV Till BS 80 mg/dL or above x2; Start 11/02/16 at 19:30 Morphine Sulfate 3 mg 3 mg Q4H PRN IV PAIN LEVEL 7-10 Last administered on 11:49; Admin Dose 3 MG; Start 11/02/16 at 22:59 Ondansetron HCl 8 mg/Sodium Chloride 54 ml @ 216 mls/hr Q6H PRN IV NAUSEA AND/ OR VOMITING Last administered on 11/08/16 11:48; Admin Dose 216 MLS/HR; Start at 23:30 Meropenem (Merrem 500 Mg/ 100 ml (Pmx)) 100 ml @ 200 mls/hr Q8 IVPB Last administered on 11/08/16 14:15; Admin Dose 200 MLS/HR; Start 11/03/16 at 13:30 Insulin Glargine (Lantus) 15 unit DAILY@20 SC Last administered on 11/07/16 23: 01; Admin Dose 15 UNIT; Start 11/05/16 at 20:00 Losartan Potassium 25 mg 25 mg DAILY PO Last administered on 11/08/16 09:58; Admin Dose 25 MG; Start 11/08/16 at 09:00 Vancomycin HCl/ Sodium Chloride (Vancocin/NS) 250 ml @ 83.333 mls/ hr Q12H IVPB Last administered on 11/08/16 17:02; Admin Dose 83.333 MLS/HR; Start at 04:00 Metoclopramide HCl (Reglan) 10 mg Q6H IV Last administered on 11/08/16 12:57; Admin Dose 10 MG; Start 11/08/16 at 13:00; Stop 11/10/16 at 12:59 Docusate Sodium (Colace) 100 mg BID PO ; Start 11/08/16 at 21:00 NANCIE HUGHES MD Nov 08, 2016 17:28
[2016-11-08] MEDS: DOCUSATE SODIUM 100 MG CAP PO SCH (20:51)
[2016-11-08] MEDS: ATORVASTATIN 40 MG TAB PO SCH (20:52)
[2016-11-08] MEDS: INSULIN GLARGINE [LANtus] 3 ML PEN SC SCH (21:12)
--- NOTE | 2016-11-08 22:22 | CONS ---
Date/Time of Note Date/Time of Note DATE: 11/08/16 TIME: 22:22 Assessment/Plan Assessment/Plan Chief Complaint/Hosp Course Anemia S/P EGD ([facility]) Esophagitis POST BMBX- AT SO FINAL PATH - neg MONITOR BLOOD COUNT CLOSELY NSTEMI Multivessel CAD History of seizure History of alcoholism History of C difficile colitis Diabetes mellitus Problems: Consultation Date/Type/Reason Admit Date/Time Oct 27, 2016 at 22:32 Initial Consult Date 10/28/16 Type of Consultation: hemeonc 24 HR Interval Summary Free Text/Dictation NO NEW EVENTS BLOOD COUNT REVIEWED Exam/Review of Systems Vital Signs Vitals Vital Signs Date Time Temp Pulse Resp B/P Pulse Ox O2 Delivery O2 Flow Rate FiO2 11/08/16 21:00 72 20 113/68 95 Room Air 11/08/16 20:48 21 11/08/16 20:34 98.2 11/08/16 09:00 3.0 Intake and Output 11/07/16 11/07/16 11/08/16 15:00 23:00 07:00 Intake Total 1204 ml Output Total 1500 ml Balance -296 ml Exam Constitutional: Alert, no distress Psych: Nl mood/affect Head: atraumatic, normocephalic Eyes: nl conjunctiva, nl lids Neck: non-tender, supple, No jvd Respiratory: clear to auscultation, No crackles/rales Cardiovascular: regular rate and rhythm Gastrointestinal: non-tender, soft Extremities: No clubbing, No cyanosis, No edema Neurological: Nl mental status, Nl speech Results Result Diagram: 11/08/16 0710 11/08/16 0710 Results 24 hrs Laboratory Tests Test 11/07/16 22:57 11/08/16 00:49 11/08/16 07:10 11/08/16 08:05 Bedside Glucose 138 115 Vancomycin Level Trough 9.9 L White Blood Count 7.3 Red Blood Count 3.48 L Hemoglobin 8.8 L Hematocrit 28.4 L Mean Corpuscular Volume 81.6 L Mean Corpuscular Hemoglobin 25.3 L Mean Corpuscular Hemoglobin Concent 31.0 L Red Cell Distribution Width 15.5 H Platelet Count 217 Mean Platelet Volume 9.8 Neutrophils % 70.1 Lymphocytes % 14.2 L Monocytes % 8.8 Eosinophils % 6.4 Basophils % 0.1 Nucleated Red Blood Cells % 0.0 Neutrophils # 5.1 Lymphocytes # 1.0 Monocytes # 0.6 Eosinophils # 0.5 Basophils # 0.0 Nucleated Red Blood Cells # 0.0 Sodium Level 135 Potassium Level 4.2 Chloride Level 102 Carbon Dioxide Level 27 Anion Gap 10 Blood Urea Nitrogen 17 Creatinine 0.83 Glucose Level 114 Calcium Level 8.0 L Test 11/08/16 09:21 11/08/16 11:45 11/08/16 17:24 11/08/16 21:04 Lab Scanned Report REFERENCE LAB Bedside Glucose 136 158 189 Medications Medications Current Medications Lorazepam (Ativan) 0.5 mg Q6H PRN IV ANXIETY; Start 10/28/16 at 04:00 Acetaminophen (Tylenol Supp) 650 mg Q6H PRN [place] PAIN LEVEL 1-3 OR FEVER Last administered on 11/02/16 22:15; Admin Dose 650 MG; Start 10/28/16 at 04:00 Aspirin (Aspirin) 81 mg DAILY PO Last administered on 11/08/16 09:58; Admin Dose 81 MG; Start 10/28/16 at 09:00 Atorvastatin Calcium (Lipitor) 40 mg HS PO Last administered on 11/08/16 20:52 ; Admin Dose 40 MG; Start 10/28/16 at 21:00 Metoprolol Tartrate (Lopressor) 25 mg BID PO Last administered on 11/08/16 20: 52; Admin Dose 25 MG; Start 10/28/16 at 09:00 Acetaminophen/ Hydrocodone Bitart ([place] (5/325)) 1 tab Q4H PRN PO MODERATE PAIN LEVEL 4-6 Last administered on 10/29/16 00:09; Admin Dose 1 TAB; Start at 00:00 Acetaminophen/ Hydrocodone Bitart ([place] (5/325)) 2 tab Q4H PRN PO SEVERE PAIN LEVEL 7-10 Last administered on 11/08/16 09:59; Admin Dose 2 TAB; Start at 00:00 Lactobacillus Acidoph/Bulgaricus (Floranex) 1 tab BID PO Last administered on 20:51; Admin Dose 1 TAB; Start 10/30/16 at 13:00 Mupirocin (Bactroban) 1 applic BID TOP Last administered on 11/08/16 21:17; Admin Dose 1 APPLIC; Start 10/31/16 at 09:00; Stop 11/15/16 at 23:00 Vancomycin HCl (Vanco Iv Per Pharmacy) PER PHARMACY DOSING NOTE XX ; Start 10/31 at 01:00 Lamotrigine (Lamictal) 200 mg BID PO Last administered on 11/08/16 20:51; Admin Dose 200 MG; Start 10/31/16 at 14:30 Miscellaneous Information 1 ea NOTE XX ; Start 10/31/16 at 13:30 Glucose (Glutose) 15 gm Q15M PRN PO DECREASED GLUCOSE; Start 10/31/16 at 13:30 Glucose (Glutose) 22.5 gm Q15M PRN PO DECREASED GLUCOSE; Start 10/31/16 at 13: 30 Dextrose (D50w Syringe) 25 ml Q15M PRN IV DECREASED GLUCOSE; Start 10/31/16 at 13:30 Dextrose (D50w Syringe) 50 ml Q15M PRN IV DECREASED GLUCOSE; Start 10/31/16 at 13:30 Glucagon (Glucagen) 1 mg Q15M PRN IM DECREASED GLUCOSE; Start 10/31/16 at 13:30 Glucose (Glutose) 15 gm Q15M PRN BUCCAL DECREASED GLUCOSE; Start 10/31/16 at 13 :30 Dextrose (D50w Syringe) 25 ml Q15M PRN IV Till BS 80 mg/dL or above x2; Start 11/02/16 at 19:30 Dextrose (D50w Syringe) 50 ml Q15M PRN IV Till BS 80 mg/dL or above x2; Start 11/02/16 at 19:30 Morphine Sulfate 3 mg 3 mg Q4H PRN IV PAIN LEVEL 7-10 Last administered on 11:49; Admin Dose 3 MG; Start 11/02/16 at 22:59 Ondansetron HCl 8 mg/Sodium Chloride 54 ml @ 216 mls/hr Q6H PRN IV NAUSEA AND/ OR VOMITING Last administered on 11/08/16 22:17; Admin Dose 216 MLS/HR; Start at 23:30 Meropenem (Merrem 500 Mg/ 100 ml (Pmx)) 100 ml @ 200 mls/hr Q8 IVPB Last administered on 11/08/16 22:17; Admin Dose 200 MLS/HR; Start 11/03/16 at 13:30 Insulin Glargine (Lantus) 15 unit DAILY@20 SC Last administered on 11/08/16 21: 12; Admin Dose 15 UNIT; Start 11/05/16 at 20:00 Losartan Potassium 25 mg 25 mg DAILY PO Last administered on 11/08/16 09:58; Admin Dose 25 MG; Start 11/08/16 at 09:00 Vancomycin HCl/ Sodium Chloride (Vancocin/NS) 250 ml @ 83.333 mls/ hr Q12H IVPB Last administered on 11/08/16 17:02; Admin Dose 83.333 MLS/HR; Start at 04:00 Metoclopramide HCl (Reglan) 10 mg Q6H IV Last administered on 11/08/16 18:21; Admin Dose 10 MG; Start 11/08/16 at 13:00; Stop 11/10/16 at 12:59 Docusate Sodium (Colace) 100 mg BID PO Last administered on 11/08/16 20:51; Admin Dose 100 MG; Start 11/08/16 at 21:00 BETO PADILLA MD Nov 08, 2016 22:22
[2016-11-09] VITALS (11 sets, daily range): BP systolic 112–158; BP diastolic 57–87; PULSE 66–79; RESP 17–20
[2016-11-09] MEDS: METOCLOPRAMIDE 10 MG INJ IV SCH ×4 (01:48→20:32)
[2016-11-09] MEDS: VANCOMYCIN 1.25 GM in SOD CHLORIDE 0.9% 250 ML IVPB SCH (04:49)
[2016-11-09] MEDS: MEROPENEM 500 MG/100 ML (PMX) 100 ML IVPB SCH (06:20)
[2016-11-09 07:33] LABS: ADD SCAN DIFF NO
[2016-11-09 07:36] LABS: BASOPHILS % 0.1 % (0.0-2.0); EOSINOPHILS # 0.4 10^3/ul (0.0-0.5); EOSINOPHILS % 5.8 % (0.0-7.0); HEMATOCRIT 27.8 % (42.0-52.0); HEMOGLOBIN 8.9 g/dl (14.0-18.0); LYMPHOCYTES # 1.1 10^3/ul (0.8-2.9); LYMPHOCYTES % 15.3 % (15.0-51.0); MEAN CORPUSCULAR HEMOGLOBIN 26.4 pg (29.0-33.0); MEAN CORPUSCULAR VOLUME 82.5 fl (82.0-101.0); MEAN PLATELET VOLUME 9.5 fl (7.4-10.4); MONOCYTE # 0.5 10^3/ul (0.3-0.9); MONOCYTES % 7.4 % (0.0-11.0); NEUTROPHIL # 5.1 10^3/ul (1.6-7.5); NEUTROPHILS % 71.1 % (39.0-77.0); PLATELET COUNT 274 10^3/UL (140-415); RED BLOOD COUNT 3.37 10^6/ul (4.70-6.10); RED CELL DISTRIBUTION WIDTH 15.7 % (11.5-14.5); WHITE BLOOD COUNT 7.2 10^3/ul (4.8-10.8)
[2016-11-09 08:00] LABS: POTASSIUM 4.5 mmol/L (3.5-5.1)
[2016-11-09 08:03] LABS: CREATININE 0.83 mg/dl (0.61-1.24)
[2016-11-09 08:04] LABS: CALCIUM 8.2 mg/dl (8.4-10.2); MAGNESIUM 2.1 mg/dl (1.7-2.5)
[2016-11-09] MEDS: DOCUSATE SODIUM 100 MG CAP PO SCH ×2 (08:24→20:33)
[2016-11-09] MEDS: LAMOTRIGINE 100 MG TAB PO SCH ×2 (08:24→20:32)
[2016-11-09] MEDS: ASPIRIN 81 MG TAB PO SCH (08:24)
[2016-11-09] MEDS: LACTOBACILLUS CHEW TAB PO SCH ×2 (08:25→20:32)
[2016-11-09] MEDS: LOSARTAN 25 MG TAB PO SCH (08:26)
[2016-11-09] MEDS: METOPROLOL 25 MG TAB PO SCH ×2 (08:26→20:35)
[2016-11-09] MEDS: MUPIROCIN 2% 22 GM OINT TOP SCH ×2 (08:28→20:39)
[2016-11-09] MEDS: INSULIN ASPART [NOVOLOG] 3 ML PEN SC SCH ×7 (08:38→20:42)
--- NOTE | 2016-11-09 09:05 | RADRPT ---
PROCEDURE: Chest Radiograph. CLINICAL INDICATION: GI bleed. Pneumonia. TECHNIQUE: Single frontal chest radiograph. COMPARISON: Chest radiograph 11/02/2016 FINDINGS: Patient is status post sternotomy. The heart is mildly enlarged.. There is mild central vascular c ongestion, worsened compared to prior study. There are worsening interstitial opacities likely repr esenting pulmonary edema. There is a small to moderate right apical pneumothorax. There is a small left pleural effusion with adjacent atelectasis/infiltrate. There is likely a trace right pleural e ffusion with adjacent atelectasis. The bones are intact. IMPRESSION: 1. Small to moderate right apical pneumothorax. This appears slightly worsened when compared to . 2. Cardiomegaly with mildly worsening central vascular congestion and pulmonary edema. Recommend c orrelation with CHF. 3. Small left pleural effusion with adjacent atelectasis/infiltrate. 4. Probable trace right pleural effusion with adjacent atelectasis. Call report: A call report was made to patient's RN Reyna at approximately 09:03 a.m. on 11/09/2016. .Dale Rosas MD, Date Time Electronically viewed and signed by .Dale Rosas MD, on 11/09/2016 09:04 .B/
--- NOTE | 2016-11-09 10:36 | CONS ---
Date/Time of Note Date/Time of Note DATE: 11/09/16 TIME: 10:36 Assessment/Plan Assessment/Plan Chief Complaint/Hosp Course Anemia S/P EGD ([facility]) Esophagitis POST BMBX- AT SO FINAL PATH - neg MONITOR BLOOD COUNT CLOSELY NSTEMI Multivessel CAD History of seizure History of alcoholism History of C difficile colitis Diabetes mellitus Problems: Consultation Date/Type/Reason Admit Date/Time Oct 27, 2016 at 22:32 Initial Consult Date 10/28/16 Type of Consultation: hemeonc 24 HR Interval Summary Free Text/Dictation + ANEMIA NO BLEEDING Exam/Review of Systems Vital Signs Vitals Vital Signs Date Time Temp Pulse Resp B/P Pulse Ox O2 Delivery O2 Flow Rate FiO2 11/09/16 08:45 72 11/09/16 07:05 98.0 19 130/79 95 11/09/16 03:15 2.0 28 11/08/16 21:00 Room Air Intake and Output 11/08/16 11/08/16 11/09/16 15:00 23:00 07:00 Intake Total 554 ml 500 ml Output Total 550 ml 300 ml Balance 4 ml 200 ml Exam Constitutional: Alert, no distress Psych: Nl mood/affect Head: atraumatic, normocephalic Eyes: nl conjunctiva, nl lids Neck: non-tender, supple, No jvd Respiratory: clear to auscultation, No crackles/rales Cardiovascular: regular rate and rhythm Gastrointestinal: non-tender, soft Extremities: No clubbing, No cyanosis, No edema Neurological: Nl mental status, Nl speech Results Result Diagram: 11/09/16 0615 11/09/16 0615 Results 24 hrs Laboratory Tests Test 11/08/16 11:45 11/08/16 17:24 11/08/16 21:04 11/09/16 06:15 Bedside Glucose 136 158 189 White Blood Count 7.2 Red Blood Count 3.37 L Hemoglobin 8.9 L Hematocrit 27.8 L Mean Corpuscular Volume 82.5 Mean Corpuscular Hemoglobin 26.4 L Mean Corpuscular Hemoglobin Concent 32.0 Red Cell Distribution Width 15.7 H Platelet Count 274 # Mean Platelet Volume 9.5 Neutrophils % 71.1 Lymphocytes % 15.3 Monocytes % 7.4 Eosinophils % 5.8 Basophils % 0.1 Nucleated Red Blood Cells % 0.0 Neutrophils # 5.1 Lymphocytes # 1.1 Monocytes # 0.5 Eosinophils # 0.4 Basophils # 0.0 Nucleated Red Blood Cells # 0.0 Sodium Level 136 Potassium Level 4.5 Chloride Level 102 Carbon Dioxide Level 28 Anion Gap 11 Blood Urea Nitrogen 15 Creatinine 0.83 Glucose Level 96 Calcium Level 8.2 L Magnesium Level 2.1 Test 11/09/16 07:49 Bedside Glucose 194 Medications Medications Current Medications Lorazepam (Ativan) 0.5 mg Q6H PRN IV ANXIETY; Start 10/28/16 at 04:00 Acetaminophen (Tylenol Supp) 650 mg Q6H PRN [place] PAIN LEVEL 1-3 OR FEVER Last administered on 11/02/16 22:15; Admin Dose 650 MG; Start 10/28/16 at 04:00 Aspirin (Aspirin) 81 mg DAILY PO Last administered on 11/09/16 08:24; Admin Dose 81 MG; Start 10/28/16 at 09:00 Atorvastatin Calcium (Lipitor) 40 mg HS PO Last administered on 11/08/16 20:52 ; Admin Dose 40 MG; Start 10/28/16 at 21:00 Metoprolol Tartrate (Lopressor) 25 mg BID PO Last administered on 11/09/16 08: 26; Admin Dose 25 MG; Start 10/28/16 at 09:00 Acetaminophen/ Hydrocodone Bitart ([place] (5/325)) 1 tab Q4H PRN PO MODERATE PAIN LEVEL 4-6 Last administered on 10/29/16 00:09; Admin Dose 1 TAB; Start at 00:00 Acetaminophen/ Hydrocodone Bitart ([place] (5/325)) 2 tab Q4H PRN PO SEVERE PAIN LEVEL 7-10 Last administered on 11/08/16 09:59; Admin Dose 2 TAB; Start at 00:00 Lactobacillus Acidoph/Bulgaricus (Floranex) 1 tab BID PO Last administered on 08:25; Admin Dose 1 TAB; Start 10/30/16 at 13:00 Mupirocin (Bactroban) 1 applic BID TOP Last administered on 11/09/16 08:28; Admin Dose 1 APPLIC; Start 10/31/16 at 09:00; Stop 11/15/16 at 23:00 Vancomycin HCl (Vanco Iv Per Pharmacy) PER PHARMACY DOSING NOTE XX ; Start 10/31 at 01:00 Lamotrigine (Lamictal) 200 mg BID PO Last administered on 11/09/16 08:24; Admin Dose 200 MG; Start 10/31/16 at 14:30 Miscellaneous Information 1 ea NOTE XX ; Start 10/31/16 at 13:30 Glucose (Glutose) 15 gm Q15M PRN PO DECREASED GLUCOSE; Start 10/31/16 at 13:30 Glucose (Glutose) 22.5 gm Q15M PRN PO DECREASED GLUCOSE; Start 10/31/16 at 13: 30 Dextrose (D50w Syringe) 25 ml Q15M PRN IV DECREASED GLUCOSE; Start 10/31/16 at 13:30 Dextrose (D50w Syringe) 50 ml Q15M PRN IV DECREASED GLUCOSE; Start 10/31/16 at 13:30 Glucagon (Glucagen) 1 mg Q15M PRN IM DECREASED GLUCOSE; Start 10/31/16 at 13:30 Glucose (Glutose) 15 gm Q15M PRN BUCCAL DECREASED GLUCOSE; Start 10/31/16 at 13 :30 Dextrose (D50w Syringe) 25 ml Q15M PRN IV Till BS 80 mg/dL or above x2; Start 11/02/16 at 19:30 Dextrose 50 ml 50 ml Q15M PRN IV Till BS 80 mg/dL or above x2; Start 11/02/16 at 19:30 Ondansetron HCl 8 mg/Sodium Chloride 54 ml @ 216 mls/hr Q6H PRN IV NAUSEA AND/ OR VOMITING Last administered on 11/08/16 22:17; Admin Dose 216 MLS/HR; Start at 23:30 Meropenem (Merrem 500 Mg/ 100 ml (Pmx)) 100 ml @ 200 mls/hr Q8 IVPB Last administered on 11/09/16 06:20; Admin Dose 200 MLS/HR; Start 11/03/16 at 13:30 Insulin Glargine (Lantus) 15 unit DAILY@20 SC Last administered on 11/08/16 21: 12; Admin Dose 15 UNIT; Start 11/05/16 at 20:00 Losartan Potassium 25 mg 25 mg DAILY PO Last administered on 11/09/16 08:26; Admin Dose 25 MG; Start 11/08/16 at 09:00 Vancomycin HCl/ Sodium Chloride (Vancocin/NS) 250 ml @ 83.333 mls/ hr Q12H IVPB Last administered on 11/09/16 04:49; Admin Dose 83.333 MLS/HR; Start at 04:00 Metoclopramide HCl (Reglan) 10 mg Q6H IV Last administered on 11/09/16 07:00; Admin Dose 10 MG; Start 11/08/16 at 13:00; Stop 11/10/16 at 12:59 Docusate Sodium (Colace) 100 mg BID PO Last administered on 11/09/16 08:24; Admin Dose 100 MG; Start 11/08/16 at 21:00 BETO PADILLA MD Nov 09, 2016 10:36
[2016-11-09] MEDS ORDERED: SILVER SULFADIAZINE 1% 400 GM CR TOP SCH (13:30)
--- NOTE | 2016-11-09 13:47 | PN ---
DATE: 11/09/2016 INFECTIOUS DISEASE PROGRESS NOTE SUBJECTIVE: The patient is alert, ambulating with PT, looks comfortable, no fevers. WBC 7.2, no sh ift, no bands. BUN 15, creatinine 0.83. PHYSICAL EXAMINATION: GENERAL: Well-developed elderly man who is alert, in no distress. HEENT: Head atraumatic, normocephalic. Sclerae anicteric. Buccal mucosa dry. NECK: Supple. Mid sternal incision dressing intact. CHEST: Rise symmetrical. Breath sounds slightly decreased in to bases. HEART: S1, S2. ABDOMEN: Soft, bowel sounds present. EXTREMITIES: Without cyanosis. Bilateral lower extremities edema with trace erythema. ASSESSMENT: 1. Status post coronary artery bypass graft. 2. Status post healthcare-associated pneumonia. 3. Methicillin-resistant Staphylococcus aureus nares colonization. 4. Diabetes. 5. Hypertension. PLAN: The patient remains stable. We are going to discontinue his antibiotics and observe him. El evate his lower extremities as much as possible due to edema and apply Silvadene cream below knees b ilaterally. Continue Bactroban to nares. Follow recommendations of consultants. Dictated By: CINDY PINA COMMERCIAL AGENT for LISSETH RAND/JOSELINE Conf#: [id number] DID#: [id number]
--- NOTE | 2016-11-09 14:24 | CONS ---
Date/Time of Note Date/Time of Note DATE: 11/09/16 TIME: 14:21 Assessment/Plan Assessment/Plan Chief Complaint/Hosp Course Assessment: Status post NSTEMI Coronary artery disease - status post CABG 11/02/2016 (CORTEZ-prox LAD-distal LAD, SVG-OM1, SVG-OM2-PDA, SVG-OM3) Acute on chronic diastolic heart failure - diuresed and thoracentesis at [facility], now euvolemic Mild to moderate right apical pneumothorax - per CT surgery Healthcare-associated pneumonia - per infectious disease Seizure disorder - initial presentation was seizure Diabetes mellitus Anemia - bone marrow biopsy reported to be negative Esophagitis on EGD Status post right transmetatarsal amputation Recommendations: -pre-operative echocardiogram showed LVEF 55%, basal inferolateral and inferior hypokinesis -continue losartan 25mg daily and metoprolol 25mg BID -continue aspirin -continue atorvastatin -post-operative care per surgery Problems: Consultation Date/Type/Reason Admit Date/Time Oct 27, 2016 at 22:32 Initial Consult Date 10/28/16 Type of Consultation: Cardiology 24 HR Interval Summary Free Text/Dictation No chest pain or shortness of breath. Chest x-ray shows mild to moderate right apical pneumothorax, slight increased from before. Detailed Summary Additional Comments 14 point review of systems without changes. Exam/Review of Systems Vital Signs Vitals Vital Signs Date Time Temp Pulse Resp B/P Pulse Ox O2 Delivery O2 Flow Rate FiO2 11/09/16 13:17 68 11/09/16 07:05 98.0 19 130/79 95 11/09/16 03:15 2.0 28 11/08/16 21:00 Room Air Intake and Output 11/08/16 11/08/16 11/09/16 15:00 23:00 07:00 Intake Total 554 ml 500 ml Output Total 550 ml 300 ml Balance 4 ml 200 ml Exam Constitutional: Alert, no distress Psych: Nl mood/affect Head: atraumatic, normocephalic Eyes: nl conjunctiva, nl lids Neck: non-tender, supple, No jvd Respiratory: clear to auscultation, No crackles/rales Cardiovascular: regular rate and rhythm Gastrointestinal: non-tender, soft Extremities: No clubbing, No cyanosis, No edema Neurological: Nl mental status, Nl speech Results Result Diagram: 11/09/16 0615 11/09/16 0615 Results 24 hrs Laboratory Tests Test 11/08/16 17:24 11/08/16 21:04 11/09/16 06:15 11/09/16 07:49 Bedside Glucose 158 189 194 White Blood Count 7.2 Red Blood Count 3.37 L Hemoglobin 8.9 L Hematocrit 27.8 L Mean Corpuscular Volume 82.5 Mean Corpuscular Hemoglobin 26.4 L Mean Corpuscular Hemoglobin Concent 32.0 Red Cell Distribution Width 15.7 H Platelet Count 274 # Mean Platelet Volume 9.5 Neutrophils % 71.1 Lymphocytes % 15.3 Monocytes % 7.4 Eosinophils % 5.8 Basophils % 0.1 Nucleated Red Blood Cells % 0.0 Neutrophils # 5.1 Lymphocytes # 1.1 Monocytes # 0.5 Eosinophils # 0.4 Basophils # 0.0 Nucleated Red Blood Cells # 0.0 Sodium Level 136 Potassium Level 4.5 Chloride Level 102 Carbon Dioxide Level 28 Anion Gap 11 Blood Urea Nitrogen 15 Creatinine 0.83 Glucose Level 96 Calcium Level 8.2 L Magnesium Level 2.1 Test 11/09/16 11:47 Bedside Glucose 185 Medications Medications Current Medications Lorazepam (Ativan) 0.5 mg Q6H PRN IV ANXIETY; Start 10/28/16 at 04:00 Acetaminophen (Tylenol Supp) 650 mg Q6H PRN [place] PAIN LEVEL 1-3 OR FEVER Last administered on 11/02/16 22:15; Admin Dose 650 MG; Start 10/28/16 at 04:00 Aspirin (Aspirin) 81 mg DAILY PO Last administered on 11/09/16 08:24; Admin Dose 81 MG; Start 10/28/16 at 09:00 Atorvastatin Calcium (Lipitor) 40 mg HS PO Last administered on 11/08/16 20:52 ; Admin Dose 40 MG; Start 10/28/16 at 21:00 Metoprolol Tartrate (Lopressor) 25 mg BID PO Last administered on 11/09/16 08: 26; Admin Dose 25 MG; Start 10/28/16 at 09:00 Acetaminophen/ Hydrocodone Bitart ([place] (5/325)) 1 tab Q4H PRN PO MODERATE PAIN LEVEL 4-6 Last administered on 10/29/16 00:09; Admin Dose 1 TAB; Start at 00:00 Acetaminophen/ Hydrocodone Bitart ([place] (5/325)) 2 tab Q4H PRN PO SEVERE PAIN LEVEL 7-10 Last administered on 11/08/16 09:59; Admin Dose 2 TAB; Start at 00:00 Lactobacillus Acidoph/Bulgaricus (Floranex) 1 tab BID PO Last administered on 08:25; Admin Dose 1 TAB; Start 10/30/16 at 13:00 Mupirocin (Bactroban) 1 applic BID TOP Last administered on 11/09/16 08:28; Admin Dose 1 APPLIC; Start 10/31/16 at 09:00; Stop 11/15/16 at 23:00 Lamotrigine (Lamictal) 200 mg BID PO Last administered on 11/09/16 08:24; Admin Dose 200 MG; Start 10/31/16 at 14:30 Miscellaneous Information 1 ea NOTE XX ; Start 10/31/16 at 13:30 Glucose (Glutose) 15 gm Q15M PRN PO DECREASED GLUCOSE; Start 10/31/16 at 13:30 Glucose (Glutose) 22.5 gm Q15M PRN PO DECREASED GLUCOSE; Start 10/31/16 at 13: 30 Dextrose (D50w Syringe) 25 ml Q15M PRN IV DECREASED GLUCOSE; Start 10/31/16 at 13:30 Dextrose (D50w Syringe) 50 ml Q15M PRN IV DECREASED GLUCOSE; Start 10/31/16 at 13:30 Glucagon (Glucagen) 1 mg Q15M PRN IM DECREASED GLUCOSE; Start 10/31/16 at 13:30 Glucose (Glutose) 15 gm Q15M PRN BUCCAL DECREASED GLUCOSE; Start 10/31/16 at 13 :30 Dextrose (D50w Syringe) 25 ml Q15M PRN IV Till BS 80 mg/dL or above x2; Start 11/02/16 at 19:30 Dextrose 50 ml 50 ml Q15M PRN IV Till BS 80 mg/dL or above x2; Start 11/02/16 at 19:30 Ondansetron HCl/ Sodium Chloride (Zofran Inj/NS) 54 ml @ 216 mls/hr Q6H PRN IV NAUSEA AND/OR VOMITING Last administered on 11/08/16 22:17; Admin Dose 216 MLS/HR; Start 11/02/16 at 23:30 Insulin Glargine (Lantus) 15 unit DAILY@20 SC Last administered on 11/08/16 21: 12; Admin Dose 15 UNIT; Start 11/05/16 at 20:00 Losartan Potassium (Cozaar) 25 mg DAILY PO Last administered on 11/09/16 08:26 ; Admin Dose 25 MG; Start 11/08/16 at 09:00 Metoclopramide HCl (Reglan) 10 mg Q6H IV Last administered on 11/09/16 07:00; Admin Dose 10 MG; Start 11/08/16 at 13:00; Stop 11/10/16 at 12:59 Docusate Sodium (Colace) 100 mg BID PO Last administered on 11/09/16 08:24; Admin Dose 100 MG; Start 11/08/16 at 21:00 Silver Sulfadiazine (Thermazene 1% 25 Gm) 1 applic BID TOP ; Start 11/09/16 at 14 :30 NANCIE HUGHES MD Nov 09, 2016 14:24
--- NOTE | 2016-11-09 15:53 | PN ---
Date/Time of Note Date/Time of Note DATE: 11/09/16 TIME: 15:45 Assessment/Plan VTE Prophylaxis VTE Prophylaxis Intervention: LMWH Lines/Catheters IV Catheter Type (from Nrs): Saline Lock Urinary Cath still in place: No Assessment/Plan Assessment/Plan 1. Coronary artery disease, NSTEMI, s/p CABG on 11/02/2016 2. Hypotension-resolved 3. Diabetes mellitus type 2 : well controlled on Lantus and Premeal insulin 4. H/o of upper GI bleeding with esophagitis on EGD, stable 5. Microcytic anemia 2/2 chronic GI bleed s/p transfusion with improved hgb 6. Chronic Seizure disorder. stable 7. Peripheral vascular disease status post foot amputation 8. Mild fluid overload / CHF versus possible pneumonia 9. Worsened Pneumothorax PLAN: * Spoke with CTS, we will have radiology put in pigtail for now / he will review patient * Start low dose lasix * Will defer to to ID for abx mgt * Continue post op mgt and supportive care * Iron profile to evaluate anemia PPx- Lovenox Subjective 24 Hr Interval Summary Free Text/Dictation Patient c/o R sided chest pain with mild difficulty breathing Nausea is improved and patient had good BM yesterday He's however having a productive cough as well Exam/Review of Systems Vital Signs Vitals Vital Signs Date Time Temp Pulse Resp B/P Pulse Ox O2 Delivery O2 Flow Rate FiO2 11/09/16 15:25 98.0 72 20 114/64 95 11/09/16 03:15 2.0 28 11/08/16 21:00 Room Air Intake and Output 11/08/16 11/08/16 11/09/16 15:00 23:00 07:00 Intake Total 554 ml 500 ml Output Total 550 ml 300 ml Balance 4 ml 200 ml Exam Constitutional: alert, obese, oriented Head: normocephalic Eyes: PERRL ENMT: mucosa pink and moist Neck: supple Respiratory: clear to auscultation, diminished breath sounds, No crackles/rales, No wheezing Cardiovascular: regular rate and rhythm, No murmurs/extra sounds Gastrointestinal: bowel sounds, non-tender, soft, No ascites Extremities: other (s/p healed transmetatarsal amputation R foot), No edema Neurological: lethargic Results Result Diagram: 11/09/1615 11/09/16 0615 Results 24 hrs Laboratory Tests Test 11/08/16 17:24 11/08/16 21:04 11/09/16 06:15 11/09/16 07:49 Bedside Glucose 158 189 194 White Blood Count 7.2 Red Blood Count 3.37 L Hemoglobin 8.9 L Hematocrit 27.8 L Mean Corpuscular Volume 82.5 Mean Corpuscular Hemoglobin 26.4 L Mean Corpuscular Hemoglobin Concent 32.0 Red Cell Distribution Width 15.7 H Platelet Count 274 # Mean Platelet Volume 9.5 Neutrophils % 71.1 Lymphocytes % 15.3 Monocytes % 7.4 Eosinophils % 5.8 Basophils % 0.1 Nucleated Red Blood Cells % 0.0 Neutrophils # 5.1 Lymphocytes # 1.1 Monocytes # 0.5 Eosinophils # 0.4 Basophils # 0.0 Nucleated Red Blood Cells # 0.0 Sodium Level 136 Potassium Level 4.5 Chloride Level 102 Carbon Dioxide Level 28 Anion Gap 11 Blood Urea Nitrogen 15 Creatinine 0.83 Glucose Level 96 Calcium Level 8.2 L Magnesium Level 2.1 Test 11/09/16 11:47 Bedside Glucose 185 Medications Medications Current Medications Lorazepam (Ativan) 0.5 mg Q6H PRN IV ANXIETY; Start 10/28/16 at 04:00 Acetaminophen (Tylenol Supp) 650 mg Q6H PRN [place] PAIN LEVEL 1-3 OR FEVER Last administered on 11/02/16 22:15; Admin Dose 650 MG; Start 10/28/16 at 04:00 Aspirin (Aspirin) 81 mg DAILY PO Last administered on 11/09/16 08:24; Admin Dose 81 MG; Start 10/28/16 at 09:00 Atorvastatin Calcium (Lipitor) 40 mg HS PO Last administered on 11/08/16 20:52 ; Admin Dose 40 MG; Start 10/28/16 at 21:00 Metoprolol Tartrate (Lopressor) 25 mg BID PO Last administered on 11/09/16 08: 26; Admin Dose 25 MG; Start 10/28/16 at 09:00 Acetaminophen/ Hydrocodone Bitart ([place] (5/325)) 1 tab Q4H PRN PO MODERATE PAIN LEVEL 4-6 Last administered on 10/29/16 00:09; Admin Dose 1 TAB; Start at 00:00 Acetaminophen/ Hydrocodone Bitart ([place] (5/325)) 2 tab Q4H PRN PO SEVERE PAIN LEVEL 7-10 Last administered on 11/08/16 09:59; Admin Dose 2 TAB; Start at 00:00 Lactobacillus Acidoph/Bulgaricus (Floranex) 1 tab BID PO Last administered on 08:25; Admin Dose 1 TAB; Start 10/30/16 at 13:00 Mupirocin (Bactroban) 1 applic BID TOP Last administered on 11/09/16 08:28; Admin Dose 1 APPLIC; Start 10/31/16 at 09:00; Stop 11/15/16 at 23:00 Lamotrigine (Lamictal) 200 mg BID PO Last administered on 11/09/16 08:24; Admin Dose 200 MG; Start 10/31/16 at 14:30 Miscellaneous Information 1 ea NOTE XX ; Start 10/31/16 at 13:30 Glucose (Glutose) 15 gm Q15M PRN PO DECREASED GLUCOSE; Start 10/31/16 at 13:30 Glucose (Glutose) 22.5 gm Q15M PRN PO DECREASED GLUCOSE; Start 10/31/16 at 13: 30 Dextrose (D50w Syringe) 25 ml Q15M PRN IV DECREASED GLUCOSE; Start 10/31/16 at 13:30 Dextrose (D50w Syringe) 50 ml Q15M PRN IV DECREASED GLUCOSE; Start 10/31/16 at 13:30 Glucagon (Glucagen) 1 mg Q15M PRN IM DECREASED GLUCOSE; Start 10/31/16 at 13:30 Glucose (Glutose) 15 gm Q15M PRN BUCCAL DECREASED GLUCOSE; Start 10/31/16 at 13 :30 Dextrose (D50w Syringe) 25 ml Q15M PRN IV Till BS 80 mg/dL or above x2; Start 11/02/16 at 19:30 Dextrose 50 ml 50 ml Q15M PRN IV Till BS 80 mg/dL or above x2; Start 11/02/16 at 19:30 Ondansetron HCl/ Sodium Chloride (Zofran Inj/NS) 54 ml @ 216 mls/hr Q6H PRN IV NAUSEA AND/OR VOMITING Last administered on 11/08/16 22:17; Admin Dose 216 MLS/HR; Start 11/02/16 at 23:30 Insulin Glargine (Lantus) 15 unit DAILY@20 SC Last administered on 11/08/16 21: 12; Admin Dose 15 UNIT; Start 11/05/16 at 20:00 Losartan Potassium (Cozaar) 25 mg DAILY PO Last administered on 11/09/16 08:26 ; Admin Dose 25 MG; Start 11/08/16 at 09:00 Metoclopramide HCl (Reglan) 10 mg Q6H IV Last administered on 11/09/16 07:00; Admin Dose 10 MG; Start 11/08/16 at 13:00; Stop 11/10/16 at 12:59 Docusate Sodium (Colace) 100 mg BID PO Last administered on 11/09/16 08:24; Admin Dose 100 MG; Start 11/08/16 at 21:00 Silver Sulfadiazine (Thermazene 1% 25 Gm) 1 applic BID TOP ; Start 11/09/16 at 14 :30 Procedures Procedures PROCEDURE: Chest Radiograph. CLINICAL INDICATION: GI bleed. Pneumonia. TECHNIQUE: Single frontal chest radiograph. COMPARISON: Chest radiograph 11/02/2016 FINDINGS: Patient is status post sternotomy. The heart is mildly enlarged.. There is mild central vascular congestion, worsened compared to prior study. There are worsening interstitial opacities likely representing pulmonary edema. There is a small to moderate right apical pneumothorax. There is a small left pleural effusion with adjacent atelectasis/infiltrate. There is likely a trace right pleural effusion with adjacent atelectasis. The bones are intact. IMPRESSION: 1. Small to moderate right apical pneumothorax. This appears slightly worsened when compared to 11/02/2016. 2. Cardiomegaly with mildly worsening central vascular congestion and pulmonary edema. Recommend correlation with CHF. 3. Small left pleural effusion with adjacent atelectasis/infiltrate. 4. Probable trace right pleural effusion with adjacent atelectasis. Call report: A call report was made to patient's RN Reyna at approximately 09: 03 a.m. on 11/09/2016. .Dale Rosas MD, MD Date Time Electronically viewed and signed by .Dale Rosas MD, on 2016 09:04 .B/ CC: CINDY PINA NP, B[place]AT[place] M. Nov 09, 2016 15:52
[2016-11-09] MEDS ORDERED: POTASSIUM CHLORIDE 250 ML IVPB PRN (16:00)
[2016-11-09] MEDS: FUROSEMIDE 20 MG INJ IV SCH (16:17)
[2016-11-09] MEDS ORDERED: LIDOCAINE 1% (MDV) 20 ML INJ ONE (17:38)
[2016-11-09] MEDS ORDERED: SOD CHLORIDE 0.9% 100 ML ONE (17:38)
[2016-11-09] MEDS ORDERED: IOHEXOL 300MG/ML 30 ML BTL ONE (17:43)
--- NOTE | 2016-11-09 18:12 | RADRPT ---
PROCEDURE: Fluoroscopic guided placement of right chest tube. CLINICAL INDICATION: Right pneumothorax. Shortness of breath. TECHNIQUE: Informed consent was obtained. The procedure, risks, benefits, complications and alternatives were explained to the patient. Risks including bleeding, infection, and pneumothorax were explained. The patient understood and was willing to proceed. A procedural pause was performed. The patient's name, date of , and procedure to be performed w ere verified. The right anterior/superior chest wall were prepped and draped in usual sterile fashion. Following the local injection of 1% lidocaine, a 19-gauge Yueh needle was advanced into the right pl eural space in the mid axillary line at the 6/7 interspace with fluoroscopic guidance. The Yueh meta l needle was removed leaving the plastic outer cannula in position. Position was confirmed with inj ection of 10 ml of Omnipaque-300. A 0.035 inch guidewire was advanced into the right pleural space through the plastic cannula with fluoroscopic guidance. The plastic cannula was removed. The tract was dilated to 10 Welsh and a 10.2 Welsh multipurpose drainage catheter was then advanced over th e guide wire. The guidewire was removed. Fluoroscopic guidance demonstrates the catheter in satisf actory position within the pleural space. The catheter was sutured to the patient's skin with 2-0 s ilk suture. A dressing was applied. The patient tolerated procedure well. A Pleur-Evac cyst was attached to the end of the chest tube. COMPARISON: Chest x-ray done earlier the same day. FINDINGS: Final images demonstrate the tip of the catheter in the upper right pleural space. A total of 0.9 m inutes of fluoroscopy time was used. IMPRESSION: 1. Successful fluoroscopic guided placement of right chest tube. RPTAT: QQ .Rc العلي MD, Date Time Electronically viewed and signed by .Rc العلي MD, on 11/09/2016 18:11 .R/
[2016-11-09] MEDS: SILVER SULFADIAZINE 1% 25 GM CR TOP SCH ×2 (18:37→20:39)
--- NOTE | 2016-11-09 19:12 | PN ---
Date/Time of Note Date/Time of Note DATE: 11/09/16 TIME: 19:11 Assessment/Plan VTE Prophylaxis VTE Prophylaxis Intervention: other Lines/Catheters IV [facility]ter Type (from [facility]): Urinary Cath still in place: No Assessment/Plan Chief Complaint/Hosp Course MPRESSION: 1. Coronary artery disease. 2. Status post myocardial infarction. 3. Anemia. 4. Gastrointestinal bleeding. 5. Seizure disorder. 6. Peripheral vascular disease status post foot amputation. SP CABG small Right PTX Plan for IR to place pigtail cath Pulm toilet ambulation Problems: Subjective 24 Hr Interval Summary Gastrointestinal: no complaints Genitourinary: no complaints, No bleeding, No discharge, No dysuria, No flank pain, No hematuria, No other Skin: no complaints Exam/Review of Systems Vital Signs Vitals Vital Signs Date Time Temp Pulse Resp B/P Pulse Ox O2 Delivery O2 Flow Rate FiO2 11/09/16 16:29 70 11/09/16 15:25 98.0 20 114/64 95 11/09/16 03:15 2.0 28 11/08/16 21:00 Room Air Intake and Output 11/08/16 11/08/16 11/09/16 14:59 22:59 06:59 Intake Total 554 ml 500 ml Output Total 550 ml 300 ml Balance 4 ml 200 ml Results Result Diagram: 11/09/1615 11/09/1615 Results 24 hrs Laboratory Tests Test 11/08/16 21:04 11/09/16 06:15 11/09/16 07:49 11/09/16 11:47 Bedside Glucose 189 194 185 White Blood Count 7.2 Red Blood Count 3.37 L Hemoglobin 8.9 L Hematocrit 27.8 L Mean Corpuscular Volume 82.5 Mean Corpuscular Hemoglobin 26.4 L Mean Corpuscular Hemoglobin Concent 32.0 Red Cell Distribution Width 15.7 H Platelet Count 274 # Mean Platelet Volume 9.5 Neutrophils % 71.1 Lymphocytes % 15.3 Monocytes % 7.4 Eosinophils % 5.8 Basophils % 0.1 Nucleated Red Blood Cells % 0.0 Neutrophils # 5.1 Lymphocytes # 1.1 Monocytes # 0.5 Eosinophils # 0.4 Basophils # 0.0 Nucleated Red Blood Cells # 0.0 Sodium Level 136 Potassium Level 4.5 Chloride Level 102 Carbon Dioxide Level 28 Anion Gap 11 Blood Urea Nitrogen 15 Creatinine 0.83 Glucose Level 96 Calcium Level 8.2 L Magnesium Level 2.1 Test 11/09/16 18:33 Bedside Glucose 122 Medications Medications Current Medications Lorazepam (Ativan) 0.5 mg Q6H PRN IV ANXIETY; Start 10/28/16 at 04:00 Acetaminophen (Tylenol Supp) 650 mg Q6H PRN [place] PAIN LEVEL 1-3 OR FEVER Last administered on 11/02/16 22:15; Admin Dose 650 MG; Start 10/28/16 at 04:00 Aspirin (Aspirin) 81 mg DAILY PO Last administered on 11/09/16 08:24; Admin Dose 81 MG; Start 10/28/16 at 09:00 Atorvastatin Calcium (Lipitor) 40 mg HS PO Last administered on 11/08/16 20:52 ; Admin Dose 40 MG; Start 10/28/16 at 21:00 Metoprolol Tartrate (Lopressor) 25 mg BID PO Last administered on 11/09/16 08: 26; Admin Dose 25 MG; Start 10/28/16 at 09:00 Acetaminophen/ Hydrocodone Bitart ([place] (5/325)) 1 tab Q4H PRN PO MODERATE PAIN LEVEL 4-6 Last administered on 10/29/16 00:09; Admin Dose 1 TAB; Start at 00:00 Acetaminophen/ Hydrocodone Bitart ([place] (5/325)) 2 tab Q4H PRN PO SEVERE PAIN LEVEL 7-10 Last administered on 11/08/16 09:59; Admin Dose 2 TAB; Start at 00:00 Lactobacillus Acidoph/Bulgaricus (Floranex) 1 tab BID PO Last administered on 08:25; Admin Dose 1 TAB; Start 10/30/16 at 13:00 Mupirocin (Bactroban) 1 applic BID TOP Last administered on 11/09/16 08:28; Admin Dose 1 APPLIC; Start 10/31/16 at 09:00; Stop 11/15/16 at 23:00 Lamotrigine (Lamictal) 200 mg BID PO Last administered on 11/09/16 08:24; Admin Dose 200 MG; Start 10/31/16 at 14:30 Miscellaneous Information 1 ea NOTE XX ; Start 10/31/16 at 13:30 Glucose (Glutose) 15 gm Q15M PRN PO DECREASED GLUCOSE; Start 10/31/16 at 13:30 Glucose (Glutose) 22.5 gm Q15M PRN PO DECREASED GLUCOSE; Start 10/31/16 at 13: 30 Dextrose (D50w Syringe) 25 ml Q15M PRN IV DECREASED GLUCOSE; Start 10/31/16 at 13:30 Dextrose (D50w Syringe) 50 ml Q15M PRN IV DECREASED GLUCOSE; Start 10/31/16 at 13:30 Glucagon (Glucagen) 1 mg Q15M PRN IM DECREASED GLUCOSE; Start 10/31/16 at 13:30 Glucose (Glutose) 15 gm Q15M PRN BUCCAL DECREASED GLUCOSE; Start 10/31/16 at 13 :30 Dextrose (D50w Syringe) 25 ml Q15M PRN IV Till BS 80 mg/dL or above x2; Start 11/02/16 at 19:30 Dextrose 50 ml 50 ml Q15M PRN IV Till BS 80 mg/dL or above x2; Start 11/02/16 at 19:30 Ondansetron HCl/ Sodium Chloride (Zofran Inj/NS) 54 ml @ 216 mls/hr Q6H PRN IV NAUSEA AND/OR VOMITING Last administered on 11/08/16 22:17; Admin Dose 216 MLS/HR; Start 11/02/16 at 23:30 Insulin Glargine (Lantus) 15 unit DAILY@20 SC Last administered on 11/08/16 21: 12; Admin Dose 15 UNIT; Start 11/05/16 at 20:00 Losartan Potassium (Cozaar) 25 mg DAILY PO Last administered on 11/09/16 08:26 ; Admin Dose 25 MG; Start 11/08/16 at 09:00 Metoclopramide HCl (Reglan) 10 mg Q6H IV Last administered on 11/09/16 07:00; Admin Dose 10 MG; Start 11/08/16 at 13:00; Stop 11/10/16 at 12:59 Docusate Sodium (Colace) 100 mg BID PO Last administered on 11/09/16 08:24; Admin Dose 100 MG; Start 11/08/16 at 21:00 Silver Sulfadiazine (Thermazene 1% 25 Gm) 1 applic BID TOP Last administered on 11/09/16 18:37; Admin Dose 1 APPLIC; Start 11/09/16 at 14:30 Furosemide 20 mg 20 mg DAILY IV Last administered on 11/09/16t 16:17; Admin Dose 20 MG; Start 11/09/16 at 16:00 Potassium Chloride (KCl 40 MEQ/250 ML NS) 250 ml @ 62.5 mls/hr ONCE PRN IVPB K 3.5 or less; Start 11/09/16 at 16:00; Stop 11/10/16 at 23:00 Famotidine (Pepcid) 20 mg BID PO ; Start 11/09/16 at 21:00 JOAN WATTS MD Nov 09, 2016 19:12
[2016-11-09] MEDS: ALBUTEROL 0.083% (NEB) 2.5 MG/3 ML AMP HHN SCH (20:00)
[2016-11-09] MEDS: FAMOTIDINE 20 MG TAB PO SCH (20:33)
[2016-11-09] MEDS: ATORVASTATIN 40 MG TAB PO SCH (20:33)
[2016-11-09] MEDS: INSULIN GLARGINE [LANtus] 3 ML PEN SC SCH (20:45)
[2016-11-09] MEDS: HYDROCODONE/APAP (5/325) TAB PO PRN (21:07)
[2016-11-10] VITALS (13 sets, daily range): BP systolic 71–118; BP diastolic 35–74; PULSE 66–77; RESP 16–20
[2016-11-10] MEDS: ALBUTEROL 0.083% (NEB) 2.5 MG/3 ML AMP HHN SCH ×4 (01:49→21:17)
[2016-11-10] MEDS: ONDANSETRON 4 MG INJ IV PRN ×2 (02:53→11:25)
[2016-11-10] MEDS: METOCLOPRAMIDE 10 MG INJ IV SCH ×2 (02:53→07:20)
[2016-11-10] MEDS: HYDROCODONE/APAP (5/325) TAB PO PRN ×3 (07:37→21:34)
[2016-11-10] MEDS: INSULIN ASPART [NOVOLOG] 3 ML PEN SC SCH ×7 (07:45→20:35)
[2016-11-10 08:25] LABS: ADD SCAN DIFF NO
--- NOTE | 2016-11-10 08:30 | RADRPT ---
PROCEDURE: XR Chest. CLINICAL INDICATION: Right pneumothorax. Right chest tube. TECHNIQUE: Single frontal view. COMPARISON: 11/09/2016. FINDINGS: Previously noted right pneumothorax is no longer present. The right pigtail chest tube catheter is in satisfactory position, laterally in the right pleural space. Mild pulmonary edema is improved. There is left basilar atelectasis, unchanged. The heart is enlarged. There are sternal wires and mediastinal clips. There is no right pleural effusion. There is a small left pleural effusion. There is no left pneumothorax. IMPRESSION: 1. Satisfactory position of right chest tube. 2. Previously noted right pneumothorax no longer present. 3. Improved pulmonary edema. 4. No other change from 11/09/2016. RPTAT: QQ .Rc لاعلي MD, Date Time Electronically viewed and signed by .Rc العلي MD, MD on 11/10/2016 08:29 .R/
[2016-11-10 08:40] LABS: BASOPHILS % 0.1 % (0.0-2.0); EOSINOPHILS # 0.4 10^3/ul (0.0-0.5); HEMATOCRIT 27.2 % (42.0-52.0); HEMOGLOBIN 8.4 g/dl (14.0-18.0); LYMPHOCYTES # 0.9 10^3/ul (0.8-2.9); LYMPHOCYTES % 13.3 % (15.0-51.0); MEAN CORPUSCULAR HEMOGLOBIN 25.6 pg (29.0-33.0); MEAN CORPUSCULAR HGB CONC 30.9 g/dl (32.0-37.0); MEAN CORPUSCULAR VOLUME 82.9 fl (82.0-101.0); MEAN PLATELET VOLUME 9.6 fl (7.4-10.4); MONOCYTE # 0.6 10^3/ul (0.3-0.9); MONOCYTES % 9.6 % (0.0-11.0); NEUTROPHIL # 4.7 10^3/ul (1.6-7.5); NEUTROPHILS % 70.7 % (39.0-77.0); PLATELET COUNT 242 10^3/UL (140-415); RED BLOOD COUNT 3.28 10^6/ul (4.70-6.10); RED CELL DISTRIBUTION WIDTH 15.9 % (11.5-14.5); WHITE BLOOD COUNT 6.7 10^3/ul (4.8-10.8)
[2016-11-10 08:59] LABS: CREATININE 1.11 mg/dl (0.61-1.24)
[2016-11-10 09:00] LABS: CALCIUM 7.9 mg/dl (8.4-10.2)
[2016-11-10] MEDS: LOSARTAN 25 MG TAB PO SCH (09:00)
[2016-11-10 09:01] LABS: IRON 13 ug/dl (35-150)
[2016-11-10] MEDS: DOCUSATE SODIUM 100 MG CAP PO SCH ×2 (09:01→20:25)
[2016-11-10] MEDS: FUROSEMIDE 20 MG INJ IV SCH (09:01)
[2016-11-10] MEDS: FAMOTIDINE 20 MG TAB PO SCH ×2 (09:01→20:25)
[2016-11-10] MEDS: LACTOBACILLUS CHEW TAB PO SCH ×2 (09:01→20:25)
[2016-11-10] MEDS: ASPIRIN 81 MG TAB PO SCH (09:01)
[2016-11-10] MEDS: LAMOTRIGINE 100 MG TAB PO SCH ×2 (09:01→20:25)
[2016-11-10] MEDS: SILVER SULFADIAZINE 1% 25 GM CR TOP SCH ×2 (09:02→20:40)
[2016-11-10] MEDS: MUPIROCIN 2% 22 GM OINT TOP SCH ×2 (09:02→20:40)
[2016-11-10] MEDS: METOPROLOL 25 MG TAB PO SCH ×2 (09:02→20:31)
[2016-11-10 09:11] LABS: TOTAL IRON BINDING CAPACITY 296 ug/dl (241-421)
--- NOTE | 2016-11-10 11:49 | PN ---
Date/Time of Note Date/Time of Note DATE: 11/10/16 TIME: 11:46 Assessment/Plan VTE Prophylaxis VTE Prophylaxis Intervention: SCD's Lines/Catheters IV [facility] Type [facility] [place] Urinary Cath still in place: No Assessment/Plan Assessment/Plan 1. Coronary artery disease, NSTEMI, s/p CABG on 11/02/2016 2. Hypotension-resolved 3. Diabetes mellitus type 2 : well controlled on Lantus and Premeal insulin 4. H/o of upper GI bleeding with esophagitis on EGD, stable 5. Severe iron deficiency Microcytic anemia 2/2 chronic GI bleed s/p transfusion with improved hgb 6. Chronic Seizure disorder. stable on lamictal 7. Peripheral vascular disease status post foot amputation 8. Mild fluid overload / CHF versus possible pneumonia 9. Worsened Pneumothorax: improved s/p pigtail cath placement 11/09/16 10. Hematuria PLAN: * Ptx improved on CXR with pigtail cath/ further recs per CTS * Continue low dose lasix * Continue to monitor urine for now, avoid anticoagulation / consult if hematuria recurrs/ monitor hgb * Will defer to to ID for abx mgt * Continue post op mgt and supportive care * Iron replacement IV x 5days PPx- SCDs/ PPI Subjective 24 Hr Interval Summary Free Text/Dictation patient c/o nausea and vomiting Having hematuria per report Exam/Review of Systems Vital Signs Vitals Vital Signs Date Time Temp Pulse Resp B/P Pulse Ox O2 Delivery O2 Flow Rate FiO2 11/10/16 11:07 98.9 76 17 87/54 94 11/10/16 08:47 21 11/09/16 20:55 Nasal Cannula 2.0 Intake and Output 11/09/16 11/09/16 11/10/16 15:00 23:00 07:00 Intake Total 1800 ml 300 ml Output Total 1125 ml 1140 ml Balance 675 ml -840 ml Exam Constitutional: alert, obese, oriented Head: normocephalic Eyes: PERRL ENMT: mucosa pink and moist Neck: supple Respiratory: R sided pigtail to underwater suction, clear to auscultation, diminished breath sounds, No crackles/rales, No wheezing Cardiovascular: regular rate and rhythm, No murmurs/extra sounds Gastrointestinal: bowel sounds, non-tender, soft, No ascites Extremities: other (s/p transmetatarsl amputation R foot), No edema Neurological: lethargic Results Result Diagram: 11/10/16 0700 11/10/16 0700 Results 24 hrs Laboratory Tests Test 11/09/16 11:47 11/09/16 18:33 11/09/16 20:41 11/10/16 07:00 Bedside Glucose 185 122 145 White Blood Count 6.7 Red Blood Count 3.28 L Hemoglobin 8.4 L Hematocrit 27.2 L Mean Corpuscular Volume 82.9 Mean Corpuscular Hemoglobin 25.6 L Mean Corpuscular Hemoglobin Concent 30.9 L Red Cell Distribution Width 15.9 H Platelet Count 242 Mean Platelet Volume 9.6 Neutrophils % 70.7 Lymphocytes % 13.3 L Monocytes % 9.6 Eosinophils % 6.0 Basophils % 0.1 Nucleated Red Blood Cells % 0.0 Neutrophils # 4.7 Lymphocytes # 0.9 Monocytes # 0.6 Eosinophils # 0.4 Basophils # 0.0 Nucleated Red Blood Cells # 0.0 Sodium Level 135 Potassium Level 4.0 Chloride Level 100 Carbon Dioxide Level 28 Anion Gap 11 Blood Urea Nitrogen 17 Creatinine 1.11 Glucose Level 192 Calcium Level 7.9 L Iron Level 13 L Total Iron Binding Capacity 296 Percent Iron Saturation 4 L Test 11/10/16 07:27 Bedside Glucose 196 Medications Medications Current Medications Lorazepam (Ativan) 0.5 mg Q6H PRN IV ANXIETY; Start 10/28/16 at 04:00 Acetaminophen (Tylenol Supp) 650 mg Q6H PRN [place] PAIN LEVEL 1-3 OR FEVER Last administered on 11/02/16 22:15; Admin Dose 650 MG; Start 10/28/16 at 04:00 Aspirin (Aspirin) 81 mg DAILY PO Last administered on 11/10/16 09:01; Admin Dose 81 MG; Start 10/28/16 at 09:00 Atorvastatin Calcium (Lipitor) 40 mg HS PO Last administered on 11/09/16 20:33 ; Admin Dose 40 MG; Start 10/28/16 at 21:00 Metoprolol Tartrate (Lopressor) 25 mg BID PO Last administered on 11/10/16 09: 02; Admin Dose 25 MG; Start 10/28/16 at 09:00 Acetaminophen/ Hydrocodone Bitart ([place] (5/325)) 1 tab Q4H PRN PO MODERATE PAIN LEVEL 4-6 Last administered on 10/29/16 00:09; Admin Dose 1 TAB; Start at 00:00 Acetaminophen/ Hydrocodone Bitart ([place] (5/325)) 2 tab Q4H PRN PO SEVERE PAIN LEVEL 7-10 Last administered on 11/10/16 07:37; Admin Dose 2 TAB; Start at 00:00 Lactobacillus Acidoph/Bulgaricus (Floranex) 1 tab BID PO Last administered on 09:01; Admin Dose 1 TAB; Start 10/30/16 at 13:00 Mupirocin (Bactroban) 1 applic BID TOP Last administered on 11/10/16 09:02; Admin Dose 1 APPLIC; Start 10/31/16 at 09:00; Stop 11/15/16 at 23:00 Lamotrigine (Lamictal) 200 mg BID PO Last administered on 11/10/16 09:01; Admin Dose 200 MG; Start 10/31/16 at 14:30 Miscellaneous Information 1 ea NOTE XX ; Start 10/31/16 at 13:30 Glucose (Glutose) 15 gm Q15M PRN PO DECREASED GLUCOSE; Start 10/31/16 at 13:30 Glucose (Glutose) 22.5 gm Q15M PRN PO DECREASED GLUCOSE; Start 10/31/16 at 13: 30 Dextrose (D50w Syringe) 25 ml Q15M PRN IV DECREASED GLUCOSE; Start 10/31/16 at 13:30 Dextrose (D50w Syringe) 50 ml Q15M PRN IV DECREASED GLUCOSE; Start 10/31/16 at 13:30 Glucagon (Glucagen) 1 mg Q15M PRN IM DECREASED GLUCOSE; Start 10/31/16 at 13:30 Glucose (Glutose) 15 gm Q15M PRN BUCCAL DECREASED GLUCOSE; Start 10/31/16 at 13 :30 Dextrose (D50w Syringe) 25 ml Q15M PRN IV Till BS 80 mg/dL or above x2; Start 11/02/16 at 19:30 Dextrose 50 ml 50 ml Q15M PRN IV Till BS 80 mg/dL or above x2; Start 11/02/16 at 19:30 Ondansetron HCl/ Sodium Chloride (Zofran Inj/NS) 54 ml @ 216 mls/hr Q6H PRN IV NAUSEA AND/OR VOMITING Last administered on 11/08/16 22:17; Admin Dose 216 MLS/HR; Start 11/02/16 at 23:30 Insulin Glargine (Lantus) 15 unit DAILY@20 SC Last administered on 11/09/16 20: 45; Admin Dose 15 UNIT; Start 11/05/16 at 20:00 Losartan Potassium (Cozaar) 25 mg DAILY PO Last administered on 11/10/16 09:00 ; Admin Dose 25 MG; Start 11/08/16 at 09:00 Metoclopramide HCl (Reglan) 10 mg Q6H IV Last administered on 11/10/16 07:20; Admin Dose 10 MG; Start 11/08/16 at 13:00; Stop 11/10/16 at 12:59 Docusate Sodium (Colace) 100 mg BID PO Last administered on 11/10/16 09:01; Admin Dose 100 MG; Start 11/08/16 at 21:00 Silver Sulfadiazine (Thermazene 1% 25 Gm) 1 applic BID TOP Last administered on 11/10/16 09:02; Admin Dose 1 APPLIC; Start 11/09/16 at 14:30 Furosemide 20 mg 20 mg DAILY IV Last administered on 11/10/16 09:01; Admin Dose 20 MG; Start 11/09/16 at 16:00 Potassium Chloride (KCl 40 MEQ/250 ML NS) 250 ml @ 62.5 mls/hr ONCE PRN IVPB K 3.5 or less; Start 11/09/16 at 16:00; Stop 11/10/16 at 23:00 Famotidine (Pepcid) 20 mg BID PO Last administered on 11/10/16 09:01; Admin Dose 20 MG; Start 11/09/16 at 21:00 Ondansetron HCl (Zofran Inj) 4 mg Q6H PRN IV nausea Last administered on 11:25; Admin Dose 4 MG; Start 11/10/16 at 03:00 Procedures Procedures PROCEDURE: XR Chest. CLINICAL INDICATION: Right pneumothorax. Right chest tube. TECHNIQUE: Single frontal view. COMPARISON: 11/09/2016. FINDINGS: Previously noted right pneumothorax is no longer present. The right pigtail chest tube catheter is in satisfactory position, laterally in the right pleural space. Mild pulmonary edema is improved. There is left basilar atelectasis, unchanged. The heart is enlarged. There are sternal wires and mediastinal clips. There is no right pleural effusion. There is a small left pleural effusion. There is no left pneumothorax. IMPRESSION: 1. Satisfactory position of right chest tube. 2. Previously noted right pneumothorax no longer present. 3. Improved pulmonary edema. 4. No other change from 11/09/2016. RPTAT: QQ .Rc العلي MD, MD Date Time Electronically viewed and signed by .Rc العلي MD, MD on 11/10/2016 08:29 .TOMMY ALEMAN Nov 10, 2016 11:49
--- NOTE | 2016-11-10 14:38 | CONS ---
Date/Time of Note Date/Time of Note DATE: 11/10/16 TIME: 14:38 Assessment/Plan Assessment/Plan Chief Complaint/Hosp Course Anemia S/P EGD ([facility]) Esophagitis POST BMBX- AT [facility] FINAL PATH - neg MONITOR BLOOD COUNT CLOSELY NSTEMI Multivessel CAD History of seizure History of alcoholism History of C difficile colitis Diabetes mellitus Problems: Consultation Date/Type/Reason Admit Date/Time Oct 27, 2016 at 22:32 Initial Consult Date 10/28/16 Type of Consultation: hemeonc 24 HR Interval Summary Free Text/Dictation ALL NOTED NO NEW EVENTS Exam/Review of Systems Vital Signs Vitals Vital Signs Date Time Temp Pulse Resp B/P Pulse Ox O2 Delivery O2 Flow Rate FiO2 11/10/16 12:18 74 11/10/16 11:07 98.9 17 87/54 94 11/10/16 08:47 21 11/09/16 20:55 Nasal Cannula 2.0 Intake and Output 11/09/16 11/09/16 11/10/16 15:00 23:00 07:00 Intake Total 1800 ml 300 ml Output Total 1125 ml 1140 ml Balance 675 ml -840 ml Exam Constitutional: Alert, no distress Psych: Nl mood/affect Head: atraumatic, normocephalic Eyes: nl conjunctiva, nl lids Neck: non-tender, supple, No jvd Respiratory: clear to auscultation, No crackles/rales Cardiovascular: regular rate and rhythm Gastrointestinal: non-tender, soft Extremities: No clubbing, No cyanosis, No edema Neurological: Nl mental status, Nl speech Results Result Diagram: 11/10/16 0700 11/10/16 0700 Results 24 hrs Laboratory Tests Test 11/09/16 18:33 11/09/16 20:41 11/10/16 07:00 11/10/16 07:27 Bedside Glucose 122 145 196 White Blood Count 6.7 Red Blood Count 3.28 L Hemoglobin 8.4 L Hematocrit 27.2 L Mean Corpuscular Volume 82.9 Mean Corpuscular Hemoglobin 25.6 L Mean Corpuscular Hemoglobin Concent 30.9 L Red Cell Distribution Width 15.9 H Platelet Count 242 Mean Platelet Volume 9.6 Neutrophils % 70.7 Lymphocytes % 13.3 L Monocytes % 9.6 Eosinophils % 6.0 Basophils % 0.1 Nucleated Red Blood Cells % 0.0 Neutrophils # 4.7 Lymphocytes # 0.9 Monocytes # 0.6 Eosinophils # 0.4 Basophils # 0.0 Nucleated Red Blood Cells # 0.0 Sodium Level 135 Potassium Level 4.0 Chloride Level 100 Carbon Dioxide Level 28 Anion Gap 11 Blood Urea Nitrogen 17 Creatinine 1.11 Glucose Level 192 Calcium Level 7.9 L Iron Level 13 L Total Iron Binding Capacity 296 Percent Iron Saturation 4 L Test 11/10/16 11:52 Bedside Glucose 88 Medications Medications Current Medications Lorazepam (Ativan) 0.5 mg Q6H PRN IV ANXIETY; Start 10/28/16 at 04:00 Acetaminophen (Tylenol Supp) 650 mg Q6H PRN [place] PAIN LEVEL 1-3 OR FEVER Last administered on 11/02/16 22:15; Admin Dose 650 MG; Start 10/28/16 at 04:00 Aspirin (Aspirin) 81 mg DAILY PO Last administered on 11/10/16 09:01; Admin Dose 81 MG; Start 10/28/16 at 09:00 Atorvastatin Calcium (Lipitor) 40 mg HS PO Last administered on 11/09/16 20:33 ; Admin Dose 40 MG; Start 10/28/16 at 21:00 Metoprolol Tartrate (Lopressor) 25 mg BID PO Last administered on 11/10/16 09: 02; Admin Dose 25 MG; Start 10/28/16 at 09:00 Acetaminophen/ Hydrocodone Bitart ([place] (5/325)) 1 tab Q4H PRN PO MODERATE PAIN LEVEL 4-6 Last administered on 10/29/16 00:09; Admin Dose 1 TAB; Start at 00:00 Acetaminophen/ Hydrocodone Bitart ([place] (5/325)) 2 tab Q4H PRN PO SEVERE PAIN LEVEL 7-10 Last administered on 11/10/16 07:37; Admin Dose 2 TAB; Start at 00:00 Lactobacillus Acidoph/Bulgaricus (Floranex) 1 tab BID PO Last administered on 09:01; Admin Dose 1 TAB; Start 10/30/16 at 13:00 Mupirocin (Bactroban) 1 applic BID TOP Last administered on 11/10/16 09:02; Admin Dose 1 APPLIC; Start 10/31/16 at 09:00; Stop 11/15/16 at 23:00 Lamotrigine (Lamictal) 200 mg BID PO Last administered on 11/10/16 09:01; Admin Dose 200 MG; Start 10/31/16 at 14:30 Miscellaneous Information 1 ea NOTE XX ; Start 10/31/16 at 13:30 Glucose (Glutose) 15 gm Q15M PRN PO DECREASED GLUCOSE; Start 10/31/16 at 13:30 Glucose (Glutose) 22.5 gm Q15M PRN PO DECREASED GLUCOSE; Start 10/31/16 at 13: 30 Dextrose (D50w Syringe) 25 ml Q15M PRN IV DECREASED GLUCOSE; Start 10/31/16 at 13:30 Dextrose (D50w Syringe) 50 ml Q15M PRN IV DECREASED GLUCOSE; Start 10/31/16 at 13:30 Glucagon (Glucagen) 1 mg Q15M PRN IM DECREASED GLUCOSE; Start 10/31/16 at 13:30 Glucose (Glutose) 15 gm Q15M PRN BUCCAL DECREASED GLUCOSE; Start 10/31/16 at 13 :30 Dextrose (D50w Syringe) 25 ml Q15M PRN IV Till BS 80 mg/dL or above x2; Start 11/02/16 at 19:30 Dextrose 50 ml 50 ml Q15M PRN IV Till BS 80 mg/dL or above x2; Start 11/02/16 at 19:30 Ondansetron HCl/ Sodium Chloride (Zofran Inj/NS) 54 ml @ 216 mls/hr Q6H PRN IV NAUSEA AND/OR VOMITING Last administered on 11/08/16 22:17; Admin Dose 216 MLS/HR; Start 11/02/16 at 23:30 Insulin Glargine (Lantus) 15 unit DAILY@20 SC Last administered on 11/09/16 20: 45; Admin Dose 15 UNIT; Start 11/05/16 at 20:00 Losartan Potassium (Cozaar) 25 mg DAILY PO Last administered on 11/10/16 09:00 ; Admin Dose 25 MG; Start 11/08/16 at 09:00 Docusate Sodium (Colace) 100 mg BID PO Last administered on 11/10/16 09:01; Admin Dose 100 MG; Start 11/08/16 at 21:00 Silver Sulfadiazine (Thermazene 1% 25 Gm) 1 applic BID TOP Last administered on 11/10/16 09:02; Admin Dose 1 APPLIC; Start 11/09/16 at 14:30 Furosemide 20 mg 20 mg DAILY IV Last administered on 11/10/16 09:01; Admin Dose 20 MG; Start 11/09/16 at 16:00 Potassium Chloride (KCl 40 MEQ/250 ML NS) 250 ml @ 62.5 mls/hr ONCE PRN IVPB K 3.5 or less; Start 11/09/16 at 16:00; Stop 11/10/16 at 23:00 Famotidine (Pepcid) 20 mg BID PO Last administered on 11/10/16 09:01; Admin Dose 20 MG; Start 11/09/16 at 21:00 Ondansetron HCl 4 mg 4 mg Q6H PRN IV nausea Last administered on 11/10/16 11:25 ; Admin Dose 4 MG; Start 11/10/16 at 03:00 Ferric Sodium Gluconate Complex/ Sodium Chloride (Ferrlecit/NS) 110 ml @ 110 mls/hr Q24H IVPB ; Start 11/10/16 at 14:00; Stop 11/14/16 at 14:59 BETO PADILLA MD Nov 10, 2016 14:38
[2016-11-10] MEDS: SOD FERRIC GLUC COMPLX 125 MG in SOD CHLORIDE 0.9% 100 ML IVPB SCH (14:54)
[2016-11-10] MEDS ORDERED: BISACODYL (EC) 5 MG TAB PO ONE (15:30)
--- NOTE | 2016-11-10 15:45 | CONS ---
Date/Time of Note Date/Time of Note DATE: 11/10/16 TIME: 15:43 Assessment/Plan Assessment/Plan Chief Complaint/Hosp Course SUBJECTIVE: Awake, no fevers, NAD PHYSICAL EXAMINATION: GENERAL: This is a well-nourished, well-developed elderly man who is awake, in no distress. HEENT: Atraumatic, normocephalic. Sclerae anicteric. Buccal mucosa dry. NECK: Supple. CHEST: Rise symmetrical. Breath sounds diminished to bases. HEART: S1, S2. ABDOMEN: Soft, bowel sounds present. EXTREMITIES: Without cyanosis. Trace edema. ASSESSMENT 1. Status post coronary artery bypass graft on 11/02/2016. 2. S/p Healthcare-associated pneumonia. 3. Methicillin-resistant Staphylococcus aureus nares colonization. 4. Diabetes. 5. Hypertension. 6. R PTX==s/p chest tube PLAN: Stable. Off abx, continue present care, follow recommendations of consultants, PT DW staff Problems: Consultation Date/Type/Reason Admit Date/Time Oct 27, 2016 at 22:32 Initial Consult Date 10/28/16 Type of Consultation: ID Exam/Review of Systems Vital Signs Vitals Vital Signs Date Time Temp Pulse Resp B/P Pulse Ox O2 Delivery O2 Flow Rate FiO2 11/10/16 15:38 97.5 69 18 97/52 95 11/10/16 08:47 21 11/09/16 20:55 Nasal Cannula 2.0 Intake and Output 11/09/16 11/09/16 11/10/16 15:00 23:00 07:00 Intake Total 1800 ml 300 ml Output Total 1125 ml 1140 ml Balance 675 ml -840 ml Results Result Diagram: 11/10/16 0700 11/10/16 0700 Results 24 hrs Laboratory Tests Test 11/09/16 18:33 11/09/16 20:41 11/10/16 07:00 11/10/16 07:27 Bedside Glucose 122 145 196 White Blood Count 6.7 Red Blood Count 3.28 L Hemoglobin 8.4 L Hematocrit 27.2 L Mean Corpuscular Volume 82.9 Mean Corpuscular Hemoglobin 25.6 L Mean Corpuscular Hemoglobin Concent 30.9 L Red Cell Distribution Width 15.9 H Platelet Count 242 Mean Platelet Volume 9.6 Neutrophils % 70.7 Lymphocytes % 13.3 L Monocytes % 9.6 Eosinophils % 6.0 Basophils % 0.1 Nucleated Red Blood Cells % 0.0 Neutrophils # 4.7 Lymphocytes # 0.9 Monocytes # 0.6 Eosinophils # 0.4 Basophils # 0.0 Nucleated Red Blood Cells # 0.0 Sodium Level 135 Potassium Level 4.0 Chloride Level 100 Carbon Dioxide Level 28 Anion Gap 11 Blood Urea Nitrogen 17 Creatinine 1.11 Glucose Level 192 Calcium Level 7.9 L Iron Level 13 L Total Iron Binding Capacity 296 Percent Iron Saturation 4 L Test 11/10/16 11:52 Bedside Glucose 88 Medications Medications Current Medications Lorazepam (Ativan) 0.5 mg Q6H PRN IV ANXIETY; Start 10/28/16 at 04:00 Acetaminophen (Tylenol Supp) 650 mg Q6H PRN [place] PAIN LEVEL 1-3 OR FEVER Last administered on 11/02/16 22:15; Admin Dose 650 MG; Start 10/28/16 at 04:00 Aspirin (Aspirin) 81 mg DAILY PO Last administered on 11/10/16 09:01; Admin Dose 81 MG; Start 10/28/16 at 09:00 Atorvastatin Calcium (Lipitor) 40 mg HS PO Last administered on 11/09/16 20:33 ; Admin Dose 40 MG; Start 10/28/16 at 21:00 Metoprolol Tartrate (Lopressor) 25 mg BID PO Last administered on 11/10/16 09: 02; Admin Dose 25 MG; Start 10/28/16 at 09:00 Acetaminophen/ Hydrocodone Bitart ([place] (5/325)) 1 tab Q4H PRN PO MODERATE PAIN LEVEL 4-6 Last administered on 10/29/16 00:09; Admin Dose 1 TAB; Start at 00:00 Acetaminophen/ Hydrocodone Bitart ([place] (5/325)) 2 tab Q4H PRN PO SEVERE PAIN LEVEL 7-10 Last administered on 11/10/16 07:37; Admin Dose 2 TAB; Start at 00:00 Lactobacillus Acidoph/Bulgaricus (Floranex) 1 tab BID PO Last administered on 09:01; Admin Dose 1 TAB; Start 10/30/16 at 13:00 Mupirocin (Bactroban) 1 applic BID TOP Last administered on 11/10/16 09:02; Admin Dose 1 APPLIC; Start 10/31/16 at 09:00; Stop 11/15/16 at 23:00 Lamotrigine (Lamictal) 200 mg BID PO Last administered on 11/10/16 09:01; Admin Dose 200 MG; Start 10/31/16 at 14:30 Miscellaneous Information 1 ea NOTE XX ; Start 10/31/16 at 13:30 Glucose (Glutose) 15 gm Q15M PRN PO DECREASED GLUCOSE; Start 10/31/16 at 13:30 Glucose (Glutose) 22.5 gm Q15M PRN PO DECREASED GLUCOSE; Start 10/31/16 at 13: 30 Dextrose (D50w Syringe) 25 ml Q15M PRN IV DECREASED GLUCOSE; Start 10/31/16 at 13:30 Dextrose (D50w Syringe) 50 ml Q15M PRN IV DECREASED GLUCOSE; Start 10/31/16 at 13:30 Glucagon (Glucagen) 1 mg Q15M PRN IM DECREASED GLUCOSE; Start 10/31/16 at 13:30 Glucose (Glutose) 15 gm Q15M PRN BUCCAL DECREASED GLUCOSE; Start 10/31/16 at 13 :30 Dextrose (D50w Syringe) 25 ml Q15M PRN IV Till BS 80 mg/dL or above x2; Start 11/02/16 at 19:30 Dextrose 50 ml 50 ml Q15M PRN IV Till BS 80 mg/dL or above x2; Start 11/02/16 at 19:30 Ondansetron HCl/ Sodium Chloride (Zofran Inj/NS) 54 ml @ 216 mls/hr Q6H PRN IV NAUSEA AND/OR VOMITING Last administered on 11/08/16 22:17; Admin Dose 216 MLS/HR; Start 11/02/16 at 23:30 Insulin Glargine (Lantus) 15 unit DAILY@20 SC Last administered on 11/09/16 20: 45; Admin Dose 15 UNIT; Start 11/05/16 at 20:00 Losartan Potassium (Cozaar) 25 mg DAILY PO Last administered on 11/10/16 09:00 ; Admin Dose 25 MG; Start 11/08/16 at 09:00 Docusate Sodium (Colace) 100 mg BID PO Last administered on 11/10/16 09:01; Admin Dose 100 MG; Start 11/08/16 at 21:00 Silver Sulfadiazine (Thermazene 1% 25 Gm) 1 applic BID TOP Last administered on 11/10/16 09:02; Admin Dose 1 APPLIC; Start 11/09/16 at 14:30 Furosemide 20 mg 20 mg DAILY IV Last administered on 11/10/16 09:01; Admin Dose 20 MG; Start 11/09/16 at 16:00 Potassium Chloride (KCl 40 MEQ/250 ML NS) 250 ml @ 62.5 mls/hr ONCE PRN IVPB K 3.5 or less; Start 11/09/16 at 16:00; Stop 11/10/16 at 23:00 Famotidine (Pepcid) 20 mg BID PO Last administered on 11/10/16 09:01; Admin Dose 20 MG; Start 11/09/16 at 21:00 Ondansetron HCl 4 mg 4 mg Q6H PRN IV nausea Last administered on 11/10/16 11:25 ; Admin Dose 4 MG; Start 11/10/16 at 03:00 Ferric Sodium Gluconate Complex/ Sodium Chloride (Ferrlecit/NS) 110 ml @ 110 mls/hr Q24H IVPB Last administered on 11/10/16 14:54; Admin Dose 110 MLS/HR; Start 11/10/16 at 14:00; Stop 11/14/16 at 14:59 CINDY PINA CELL MAKER Nov 10, 2016 15:45
[2016-11-10 16:16] LABS: INR 1.16; PROTIME 14.9 Sec (12.2-14.2); PT RATIO 1.2
[2016-11-10 16:17] LABS: PARTIAL THROMBOPLASTIN TIME 38.9 Sec (25.0-35.0)
[2016-11-10] MEDS: ATORVASTATIN 40 MG TAB PO SCH (20:27)
[2016-11-10] MEDS: INSULIN GLARGINE [LANtus] 3 ML PEN SC SCH (20:39)
[2016-11-11] VITALS (13 sets, daily range): BP systolic 100–137; BP diastolic 53–79; PULSE 75–101; RESP 16–20
[2016-11-11] MEDS: ALBUTEROL 0.083% (NEB) 2.5 MG/3 ML AMP HHN SCH ×3 (02:00→13:02)
[2016-11-11] MEDS: ONDANSETRON 4 MG INJ IV PRN (07:19)
[2016-11-11] MEDS: INSULIN ASPART [NOVOLOG] 3 ML PEN SC SCH ×7 (07:35→21:00)
[2016-11-11 08:14] LABS: ADD SCAN DIFF NO
[2016-11-11 08:20] LABS: BASOPHILS % 0.2 % (0.0-2.0); EOSINOPHILS # 0.3 10^3/ul (0.0-0.5); EOSINOPHILS % 5.7 % (0.0-7.0); HEMATOCRIT 26.3 % (42.0-52.0); LYMPHOCYTES # 0.9 10^3/ul (0.8-2.9); LYMPHOCYTES % 19.9 % (15.0-51.0); MEAN CORPUSCULAR HEMOGLOBIN 25.5 pg (29.0-33.0); MEAN CORPUSCULAR HGB CONC 30.4 g/dl (32.0-37.0); MEAN CORPUSCULAR VOLUME 83.8 fl (82.0-101.0); MEAN PLATELET VOLUME 9.3 fl (7.4-10.4); MONOCYTE # 0.5 10^3/ul (0.3-0.9); MONOCYTES % 11.3 % (0.0-11.0); NEUTROPHIL # 2.8 10^3/ul (1.6-7.5); NEUTROPHILS % 62.5 % (39.0-77.0); PLATELET COUNT 236 10^3/UL (140-415); RED BLOOD COUNT 3.14 10^6/ul (4.70-6.10); RED CELL DISTRIBUTION WIDTH 16.5 % (11.5-14.5); WHITE BLOOD COUNT 4.5 10^3/ul (4.8-10.8)
[2016-11-11 08:36] LABS: CALCIUM 7.8 mg/dl (8.4-10.2); CREATININE 1.05 mg/dl (0.61-1.24); POTASSIUM 4.3 mmol/L (3.5-5.1)
[2016-11-11] MEDS: LACTOBACILLUS CHEW TAB PO SCH ×2 (08:44→21:55)
[2016-11-11] MEDS: DOCUSATE SODIUM 100 MG CAP PO SCH ×2 (08:44→21:55)
[2016-11-11] MEDS: METOPROLOL 25 MG TAB PO SCH ×2 (08:44→21:54)
[2016-11-11] MEDS: FAMOTIDINE 20 MG TAB PO SCH ×2 (08:44→21:55)
[2016-11-11] MEDS: LOSARTAN 25 MG TAB PO SCH (08:44)
[2016-11-11] MEDS: MUPIROCIN 2% 22 GM OINT TOP SCH ×2 (08:45→21:00)
[2016-11-11] MEDS: LAMOTRIGINE 100 MG TAB PO SCH ×2 (08:45→21:55)
[2016-11-11] MEDS: SILVER SULFADIAZINE 1% 25 GM CR TOP SCH ×2 (08:45→21:00)
[2016-11-11] MEDS: ASPIRIN 81 MG TAB PO SCH (08:45)
[2016-11-11] MEDS: FUROSEMIDE 20 MG INJ IV SCH (08:46)
--- NOTE | 2016-11-11 12:25 | RADRPT ---
PROCEDURE: XR Chest. CLINICAL INDICATION: Pneumothorax. TECHNIQUE: Single frontal view of the chest was obtained COMPARISON: Chest x-ray 11/10/2016. FINDINGS: The soft tissues are normal. A mediastinotomy was performed with degenerative osteophytes in the th oracic spine. There is no evidence of a pneumothorax. The heart is enlarged. The cardiomediastina l silhouette and hilar structures are normal. The pulmonary vasculature is equilibrated. There are clips in the area of the left hilum. There is a left-sided aorta. There are consolidative infiltrate s in the lingula and left lower lobe silhouetting the heart border and left diaphragm. There is a l eft pleural effusion. No right pleural effusion is noted at this time. A pigtail thoracostomy tube is noted along the lateral right chest wall. Trace pleural fluid is noted in the minor fissure. IMPRESSION: 1. There is no evidence of a pneumothorax. Stable appearance of the right-sided small-bore pigtail thoracostomy tube. 2. Cardiomegaly with median sternotomy for prior coronary artery bypass surgery. 3. Moderate-sized left pleural effusion with consolidative. Small right pleural effusion. infiltra te/atelectasis in the lingula and left lower lobe which is unchanged. 4. The pulmonary vasculature is equilibrated. RPTAT:AAJJ Physician Lisa Date Time Electronically viewed and signed by Physician Lisa on 11/11/2016 12:25 ISAÍAS/
--- NOTE | 2016-11-11 13:44 | PN ---
Date/Time of Note Date/Time of Note DATE: 11/11/16 TIME: 13:37 Assessment/Plan VTE Prophylaxis VTE Prophylaxis Intervention: SCD's Lines/Catheters IV [facility]from [facility] Urinary Cath still in place: No Assessment/Plan Assessment/Plan 1. Coronary artery disease, NSTEMI, s/p CABG on 11/02/2016 2. L sided Pleural effusion and possible infiltrate / CHF versus possible pneumonia 3. Diabetes mellitus type 2 : well controlled on Lantus and Premeal insulin 4. H/o of upper GI bleeding with esophagitis on EGD, stable 5. Severe iron deficiency Microcytic anemia 2/2 chronic GI bleed s/p transfusion with stable hgb 6. Chronic Seizure disorder. stable on lamictal 7. Peripheral vascular disease status post foot amputation 8. Hematuria 9. Post Op Pneumothorax: improved s/p pigtail cath placement 11/09/16 PLAN: * Repeat blood and nurine cultures for chills * Reglan and laxative therapy for nausea and constipation * UA / consult for continued hematuria * Ptx improved on CXR with pigtail cath/ F/u further recs per CTS * Continue low dose lasix * Monitor hgb / may require transfusion * Will defer to to ID for abx mgt * Continue post op mgt and supportive care * Iron replacement IV x 5days PPx- SCDs/ PPI Subjective 24 Hr Interval Summary Free Text/Dictation Multiple issues * repeated episodes of hematuria * Continued nausea and constipation * continued lethargy * now having chills Exam/Review of Systems Vital Signs Vitals Vital Signs Date Time Temp Pulse Resp B/P Pulse Ox O2 Delivery O2 Flow Rate FiO2 11/11/16 12:33 80 11/11/16 11:46 98.1 18 107/53 91 11/11/16 08:08 21 11/09/16 20:55 Nasal Cannula 2.0 Intake and Output 11/10/16 11/10/16 11/11/16 15:00 23:00 07:00 Intake Total 110 ml Output Total 70 ml 50 ml Balance 40 ml -50 ml Exam Constitutional: alert, obese, oriented Head: normocephalic Eyes: PERRL ENMT: mucosa pink and moist Neck: supple Respiratory: clear to auscultation, diminished breath sounds, No crackles/rales, No wheezing Cardiovascular: regular rate and rhythm, No murmurs/extra sounds Gastrointestinal: bowel sounds, non-tender, soft, No ascites Extremities: other (s/p healed transmetatarsal amputation R foot), No edema Neurological: lethargic Results Result Diagram: 11/11/16 0648 11/11/16 0648 Results 24 hrs Laboratory Tests Test 11/10/16 15:55 11/10/16 17:09 11/10/16 20:32 11/11/16 06:48 Prothrombin Time 14.9 H Prothrombin Time Ratio 1.2 INR International Normalized Ratio 1.16 Activated Partial Thromboplast Time 38.9 H Bedside Glucose 120 105 White Blood Count 4.5 #L Red Blood Count 3.14 L Hemoglobin 8.0 L Hematocrit 26.3 L Mean Corpuscular Volume 83.8 Mean Corpuscular Hemoglobin 25.5 L Mean Corpuscular Hemoglobin Concent 30.4 L Red Cell Distribution Width 16.5 H Platelet Count 236 Mean Platelet Volume 9.3 Neutrophils % 62.5 Lymphocytes % 19.9 Monocytes % 11.3 H Eosinophils % 5.7 Basophils % 0.2 Nucleated Red Blood Cells % 0.0 Neutrophils # 2.8 Lymphocytes # 0.9 Monocytes # 0.5 Eosinophils # 0.3 Basophils # 0.0 Nucleated Red Blood Cells # 0.0 Sodium Level 135 Potassium Level 4.3 Chloride Level 101 Carbon Dioxide Level 29 Anion Gap 9 Blood Urea Nitrogen 17 Creatinine 1.05 Glucose Level 107 # Calcium Level 7.8 L Test 11/11/16 07:35 11/11/16 12:07 Bedside Glucose 108 155 Medications Medications Current Medications Lorazepam (Ativan) 0.5 mg Q6H PRN IV ANXIETY; Start 10/28/16 at 04:00 Acetaminophen (Tylenol Supp) 650 mg Q6H PRN [place] PAIN LEVEL 1-3 OR FEVER Last administered on 11/02/16 22:15; Admin Dose 650 MG; Start 10/28/16 at 04:00 Aspirin (Aspirin) 81 mg DAILY PO Last administered on 11/11/16 08:45; Admin Dose 81 MG; Start 10/28/16 at 09:00 Atorvastatin Calcium (Lipitor) 40 mg HS PO Last administered on 11/10/16 20:27 ; Admin Dose 40 MG; Start 10/28/16 at 21:00 Metoprolol Tartrate (Lopressor) 25 mg BID PO Last administered on 11/11/16 08: 44; Admin Dose 25 MG; Start 10/28/16 at 09:00 Acetaminophen/ Hydrocodone Bitart ([place] (5/325)) 1 tab Q4H PRN PO MODERATE PAIN LEVEL 4-6 Last administered on 11/10/16 18:44; Admin Dose 1 TAB; Start at 00:00 Acetaminophen/ Hydrocodone Bitart ([place] (5/325)) 2 tab Q4H PRN PO SEVERE PAIN LEVEL 7-10 Last administered on 11/10/16 21:34; Admin Dose 2 TAB; Start at 00:00 Lactobacillus Acidoph/Bulgaricus (Floranex) 1 tab BID PO Last administered on 08:44; Admin Dose 1 TAB; Start 10/30/16 at 13:00 Mupirocin (Bactroban) 1 applic BID TOP Last administered on 11/11/16 08:45; Admin Dose 1 APPLIC; Start 10/31/16 at 09:00; Stop 11/15/16 at 23:00 Lamotrigine (Lamictal) 200 mg BID PO Last administered on 11/11/16 08:45; Admin Dose 200 MG; Start 10/31/16 at 14:30 Miscellaneous Information 1 ea NOTE XX ; Start 10/31/16 at 13:30 Glucose (Glutose) 15 gm Q15M PRN PO DECREASED GLUCOSE; Start 10/31/16 at 13:30 Glucose (Glutose) 22.5 gm Q15M PRN PO DECREASED GLUCOSE; Start 10/31/16 at 13: 30 Dextrose (D50w Syringe) 25 ml Q15M PRN IV DECREASED GLUCOSE; Start 10/31/16 at 13:30 Dextrose (D50w Syringe) 50 ml Q15M PRN IV DECREASED GLUCOSE; Start 10/31/16 at 13:30 Glucagon (Glucagen) 1 mg Q15M PRN IM DECREASED GLUCOSE; Start 10/31/16 at 13:30 Glucose (Glutose) 15 gm Q15M PRN BUCCAL DECREASED GLUCOSE; Start 10/31/16 at 13 :30 Dextrose (D50w Syringe) 25 ml Q15M PRN IV Till BS 80 mg/dL or above x2; Start 11/02/16 at 19:30 Dextrose 50 ml 50 ml Q15M PRN IV Till BS 80 mg/dL or above x2; Start 11/02/16 at 19:30 Ondansetron HCl/ Sodium Chloride (Zofran Inj/NS) 54 ml @ 216 mls/hr Q6H PRN IV NAUSEA AND/OR VOMITING Last administered on 11/08/16 22:17; Admin Dose 216 MLS/HR; Start 11/02/16 at 23:30 Insulin Glargine (Lantus) 15 unit DAILY@20 SC Last administered on 11/10/16 20: 39; Admin Dose 15 UNIT; Start 11/05/16 at 20:00 Losartan Potassium (Cozaar) 25 mg DAILY PO Last administered on 11/11/16 08:44 ; Admin Dose 25 MG; Start 11/08/16 at 09:00 Docusate Sodium (Colace) 100 mg BID PO Last administered on 11/11/16 08:44; Admin Dose 100 MG; Start 11/08/16 at 21:00 Silver Sulfadiazine (Thermazene 1% 25 Gm) 1 applic BID TOP Last administered on 11/11/16 08:45; Admin Dose 1 APPLIC; Start 11/09/16 at 14:30 Furosemide (Lasix) 20 mg DAILY IV Last administered on 11/11/16 08:46; Admin Dose 20 MG; Start 11/09/16 at 16:00 Famotidine (Pepcid) 20 mg BID PO Last administered on 11/11/16 08:44; Admin Dose 20 MG; Start 11/09/16 at 21:00 Ondansetron HCl 4 mg 4 mg Q6H PRN IV nausea Last administered on 11/11/16 07:19 ; Admin Dose 4 MG; Start 11/10/16 at 03:00 Ferric Sodium Gluconate Complex/ Sodium Chloride (Ferrlecit/NS) 110 ml @ 110 mls/hr Q24H IVPB Last administered on 11/10/16 14:54; Admin Dose 110 MLS/HR; Start 11/10/16 at 14:00; Stop 11/14/16 at 14:59 Procedures Procedures PROCEDURE: XR Chest. CLINICAL INDICATION: Pneumothorax. TECHNIQUE: Single frontal view of the chest was obtained COMPARISON: Chest x-ray 11/10/2016. FINDINGS: The soft tissues are normal. A mediastinotomy was performed with degenerative osteophytes in the thoracic spine. There is no evidence of a pneumothorax. The heart is enlarged. The cardiomediastinal silhouette and hilar structures are normal. The pulmonary vasculature is equilibrated. There are clips in the area of the left hilum. There is a left-sided aorta. There are consolidative infiltrates in the lingula and left lower lobe silhouetting the heart border and left diaphragm. There is a left pleural effusion. No right pleural effusion is noted at this time. A pigtail thoracostomy tube is noted along the lateral right chest wall. Trace pleural fluid is noted in the minor fissure. IMPRESSION: 1. There is no evidence of a pneumothorax. Stable appearance of the right- sided small-bore pigtail thoracostomy tube. 2. Cardiomegaly with median sternotomy for prior coronary artery bypass surgery. 3. Moderate-sized left pleural effusion with consolidative. Small right pleural effusion. infiltrate/atelectasis in the lingula and left lower lobe which is unchanged. 4. The pulmonary vasculature is equilibrated. RPTAT:AAJJ Physician Lisa Date Time Electronically viewed and signed by Diego Soto Physician on 11/11/2016 12:25 JM/ CC: TOMMY RAMOS BOLATITO M. Nov 11, 2016 13:44
[2016-11-11] MEDS ORDERED: MAGNESIUM CITRATE 300 ML BTL PO ONE (14:00)
[2016-11-11] MEDS: METOCLOPRAMIDE 10 MG INJ IV SCH ×2 (14:05→17:14)
[2016-11-11] MEDS: SOD FERRIC GLUC COMPLX 125 MG in SOD CHLORIDE 0.9% 100 ML IVPB SCH (14:05)
[2016-11-11] MEDS ORDERED: VANCOMYCIN IV PER PHARMACY XX SCH (15:30)
--- NOTE | 2016-11-11 15:37 | PN ---
DATE: 11/11/2016 INFECTIOUS DISEASE PROGRESS NOTE SUBJECTIVE: Patient is sitting at the edge of the bed and shivering. He is complaining of blood wi th urination. He states he does not feel good, but overall in no distress. No fevers overnight. W BC 4.5. No shift, no bands. BUN 17, creatinine 1.05. INDWELLINGS: Right chest pigtail catheter. PHYSICAL EXAMINATION: GENERAL: This is a well-developed, elderly man, who is awake, in no distress. HEENT: Head atraumatic, normocephalic. Sclerae anicteric. Buccal mucosa dry. NECK: Supple, trachea midline. CHEST: Chest rise is symmetrical. Breath sounds diminished to the bases. HEART: S1, S2. ABDOMEN: Soft, bowel tones present. EXTREMITIES: With bilateral lower extremities edema, dependent. ASSESSMENT: 1. Systemic inflammatory response syndrome, possible sepsis, with shivering. Rule out urinary trac t infection. 2. Hematuria. 3. Status post pneumonia, with chest x-ray this morning revealing moderate pleural effusion with co nsolidative abnormalities. 4. Methicillin-resistant Staphylococcus aureus nares colonization. 5. Coronary artery disease, status post coronary artery bypass graft on 11/02/2016. 6. Diabetes. PLAN: We are going to martínez culture the patient. We are going to call urology to evaluate him. Start him on vancomycin and Merrem after cultures are done. Follow up on chest x-ray in the a.m. Furthe r recommendations per patient's clinical course. Dictated By: CINDY PINA AIRCRAFT CLEANER for LISSETH RAND/JOSELINE Conf#: [id number] DID#: [id number]
[2016-11-11] MEDS ORDERED: VANCOMYCIN 1.5 GM in SOD CHLORIDE 0.9% 250 ML IVPB ONE (16:30)
[2016-11-11 17:13] LABS: ADD UMIC YES; URINE BILIRUBIN (Dip) NEGATIVE (NEGATIVE); URINE BLOOD (Dip) 3+ (NEGATIVE); URINE COLOR YELLOW (YELLOW); URINE GLUCOSE (Dip) NEGATIVE (NEGATIVE); URINE KETONES (Dip) NEGATIVE (NEGATIVE); URINE LEUKOCYTE ESTERASE (Dip) 3+ (NEGATIVE); URINE NITRITE (Dip) NEGATIVE (NEGATIVE); URINE TOTAL PROTEIN (Dip) 2+ (NEGATIVE); URINE UROBILINOGEN (Dip) 0.2 E.U./dL (0.1-1.0)
[2016-11-11 17:23] LABS: BACTERIA,URINE MODERATE
[2016-11-11] MEDS: INSULIN GLARGINE [LANtus] 3 ML PEN SC SCH (20:00)
--- NOTE | 2016-11-11 20:02 | CONS ---
Date/Time of Note Date/Time of Note DATE: 11/11/16 TIME: 20:00 Assessment/Plan Assessment/Plan Chief Complaint/Hosp Course Assessment: Status post NSTEMI Coronary artery disease - status post CABG 11/02/2016 (CORTEZ-prox LAD-distal LAD, SVG-OM1, SVG-OM2-PDA, SVG-OM3) Acute on chronic diastolic heart failure - diuresed and thoracentesis at [facility], now euvolemic Mild to moderate right apical pneumothorax - status post pigtail catheter 2016, per CT surgery Healthcare-associated pneumonia - per infectious disease Seizure disorder - initial presentation was seizure Diabetes mellitus Anemia - bone marrow biopsy reported to be negative Esophagitis on EGD Status post right transmetatarsal amputation Recommendations: -pre-operative echocardiogram showed LVEF 55%, basal inferolateral and inferior hypokinesis -continue losartan 25mg daily and metoprolol 25mg BID -continue aspirin -continue atorvastatin -post-operative care per surgery Problems: Consultation Date/Type/Reason Admit Date/Time Oct 27, 2016 at 22:32 Initial Consult Date 10/28/16 Type of Consultation: Cardiology 24 HR Interval Summary Free Text/Dictation Pigtail catheter was placed 11/09/2016 with subsequent resolution of small right apical pneumothorax on chest x-ray. Detailed Summary Additional Comments 14 point review of systems without changes. Exam/Review of Systems Vital Signs Vitals Vital Signs Date Time Temp Pulse Resp B/P Pulse Ox O2 Delivery O2 Flow Rate FiO2 11/11/16 16:39 90 11/11/16 15:49 98.2 18 125/79 91 11/11/16 14:57 21 11/09/16 20:55 Nasal Cannula 2.0 Intake and Output 11/10/16 11/10/16 11/11/16 15:00 23:00 07:00 Intake Total 110 ml Output Total 70 ml 50 ml Balance 40 ml -50 ml Exam Constitutional: Alert, no distress Psych: Nl mood/affect Head: atraumatic, normocephalic Eyes: nl conjunctiva, nl lids Neck: non-tender, supple, No jvd Respiratory: clear to auscultation, No crackles/rales Cardiovascular: regular rate and rhythm Gastrointestinal: non-tender, soft Extremities: No clubbing, No cyanosis, No edema Neurological: Nl mental status, Nl speech Results Result Diagram: 11/11/16 0648 11/11/16 0648 Results 24 hrs Laboratory Tests Test 11/10/16 20:32 11/11/16 06:48 11/11/16 07:35 11/11/16 12:07 Bedside Glucose 105 108 155 White Blood Count 4.5 #L Red Blood Count 3.14 L Hemoglobin 8.0 L Hematocrit 26.3 L Mean Corpuscular Volume 83.8 Mean Corpuscular Hemoglobin 25.5 L Mean Corpuscular Hemoglobin Concent 30.4 L Red Cell Distribution Width 16.5 H Platelet Count 236 Mean Platelet Volume 9.3 Neutrophils % 62.5 Lymphocytes % 19.9 Monocytes % 11.3 H Eosinophils % 5.7 Basophils % 0.2 Nucleated Red Blood Cells % 0.0 Neutrophils # 2.8 Lymphocytes # 0.9 Monocytes # 0.5 Eosinophils # 0.3 Basophils # 0.0 Nucleated Red Blood Cells # 0.0 Sodium Level 135 Potassium Level 4.3 Chloride Level 101 Carbon Dioxide Level 29 Anion Gap 9 Blood Urea Nitrogen 17 Creatinine 1.05 Glucose Level 107 # Calcium Level 7.8 L Test 11/11/16 16:37 11/11/16 17:02 Urine Color YELLOW Urine Clarity TURBID H Urine pH 5.5 Urine Specific [place] 1.025 Urine Ketones NEGATIVE Urine Nitrite NEGATIVE Urine Bilirubin NEGATIVE Urine Urobilinogen 0.2 E.U./dL Urine Leukocyte Esterase 3+ H Urine Microscopic RBC 10-25 Urine Microscopic WBC >200 Urine Bacteria MODERATE Urine Hemoglobin 3+ H Urine Glucose NEGATIVE Urine Total Protein 2+ H Bedside Glucose 133 Medications Medications Current Medications Lorazepam (Ativan) 0.5 mg Q6H PRN IV ANXIETY; Start 10/28/16 at 04:00 Acetaminophen (Tylenol Supp) 650 mg Q6H PRN [place] PAIN LEVEL 1-3 OR FEVER Last administered on 11/02/16 22:15; Admin Dose 650 MG; Start 10/28/16 at 04:00 Aspirin (Aspirin) 81 mg DAILY PO Last administered on 11/11/16 08:45; Admin Dose 81 MG; Start 10/28/16 at 09:00 Atorvastatin Calcium (Lipitor) 40 mg HS PO Last administered on 11/10/16 20:27 ; Admin Dose 40 MG; Start 10/28/16 at 21:00 Metoprolol Tartrate (Lopressor) 25 mg BID PO Last administered on 11/11/16 08: 44; Admin Dose 25 MG; Start 10/28/16 at 09:00 Acetaminophen/ Hydrocodone Bitart ([place] (5/325)) 1 tab Q4H PRN PO MODERATE PAIN LEVEL 4-6 Last administered on 11/10/16 18:44; Admin Dose 1 TAB; Start at 00:00 Acetaminophen/ Hydrocodone Bitart ([place] (5/325)) 2 tab Q4H PRN PO SEVERE PAIN LEVEL 7-10 Last administered on 11/10/16 21:34; Admin Dose 2 TAB; Start at 00:00 Lactobacillus Acidoph/Bulgaricus (Floranex) 1 tab BID PO Last administered on 08:44; Admin Dose 1 TAB; Start 10/30/16 at 13:00 Mupirocin (Bactroban) 1 applic BID TOP Last administered on 11/11/16 08:45; Admin Dose 1 APPLIC; Start 10/31/16 at 09:00; Stop 11/15/16 at 23:00 Lamotrigine (Lamictal) 200 mg BID PO Last administered on 11/11/16 08:45; Admin Dose 200 MG; Start 10/31/16 at 14:30 Miscellaneous Information 1 ea NOTE XX ; Start 10/31/16 at 13:30 Glucose (Glutose) 15 gm Q15M PRN PO DECREASED GLUCOSE; Start 10/31/16 at 13:30 Glucose (Glutose) 22.5 gm Q15M PRN PO DECREASED GLUCOSE; Start 10/31/16 at 13: 30 Dextrose (D50w Syringe) 25 ml Q15M PRN IV DECREASED GLUCOSE; Start 10/31/16 at 13:30 Dextrose (D50w Syringe) 50 ml Q15M PRN IV DECREASED GLUCOSE; Start 10/31/16 at 13:30 Glucagon (Glucagen) 1 mg Q15M PRN IM DECREASED GLUCOSE; Start 10/31/16 at 13:30 Glucose 15 gm 15 gm Q15M PRN BUCCAL DECREASED GLUCOSE; Start 10/31/16 at 13:30 Ondansetron HCl/ Sodium Chloride (Zofran Inj/NS) 54 ml @ 216 mls/hr Q6H PRN IV NAUSEA AND/OR VOMITING Last administered on 11/08/16 22:17; Admin Dose 216 MLS/HR; Start 11/02/16 at 23:30 Insulin Glargine (Lantus) 15 unit DAILY@20 SC Last administered on 11/10/16 20: 39; Admin Dose 15 UNIT; Start 11/05/16 at 20:00 Losartan Potassium (Cozaar) 25 mg DAILY PO Last administered on 11/11/16 08:44 ; Admin Dose 25 MG; Start 11/08/16 at 09:00 Docusate Sodium (Colace) 100 mg BID PO Last administered on 11/11/16 08:44; Admin Dose 100 MG; Start 11/08/16 at 21:00 Silver Sulfadiazine (Thermazene 1% 25 Gm) 1 applic BID TOP Last administered on 11/11/16 08:45; Admin Dose 1 APPLIC; Start 11/09/16 at 14:30 Furosemide (Lasix) 20 mg DAILY IV Last administered on 11/11/16 08:46; Admin Dose 20 MG; Start 11/09/16 at 16:00 Famotidine (Pepcid) 20 mg BID PO Last administered on 11/11/16 08:44; Admin Dose 20 MG; Start 11/09/16 at 21:00 Ondansetron HCl 4 mg 4 mg Q6H PRN IV nausea Last administered on 11/11/16 07:19 ; Admin Dose 4 MG; Start 11/10/16 at 03:00 Ferric Sodium Gluconate Complex/ Sodium Chloride (Ferrlecit/NS) 110 ml @ 110 mls/hr Q24H IVPB Last administered on 11/11/16 14:05; Admin Dose 110 MLS/HR; Start 11/10/16 at 14:00; Stop 11/14/16 at 14:59 Metoclopramide HCl 10 mg 10 mg Q6 IV Last administered on 11/11/16 17:14; Admin Dose 10 MG; Start 11/11/16 at 14:00; Stop 11/13/16 at 13:59 Meropenem 100 ml @ 200 mls/hr Q12 IVPB ; Start 11/11/16 at 21:00 Vancomycin HCl/ Sodium Chloride (Vancocin/NS) 250 ml @ 83.333 mls/ hr Q12H IVPB ; Start 11/12/16 at 04:00 Polyethylene Glycol (Miralax) 17 gm DAILY PO ; Start 11/12/16 at 09:00 NANCIE HUGHES MD Nov 11, 2016 20:02
--- NOTE | 2016-11-11 20:07 | CONS ---
DATE OF ADMISSION: 10/27/2016 DATE OF CONSULTATION: 11/11/2016 REQUESTING PHYSICIAN: Dr. Victor. REASON FOR CONSULTATION: Gross hematuria. HISTORY OF PRESENT ILLNESS: This is a 61-year-old male, who was admitted to the hospital on 10/27 w ith shortness of breath and chest pain, and was found to have multiple coronary vessel disease, and he underwent coronary artery bypass graft on 11/02/2016. He subsequently had left-sided pleural eff usion and infiltrate. He had a normal thorax and he had a pigtail catheter placed on 11/09/2016. T he patient also has a history of seizures, and has been on medications; Lamictal, peripheral vascula r disease. He had a partial foot amputation. The patient also does have a history of GI bleeding, esophagitis, diabetes mellitus type 2, and severe iron deficiency microcytic anemia. ALLERGIES: MORPHINE. SOCIAL HISTORY: He presently does not smoke and does not drink. MEDICATIONS: Include: 1. MiraLAX. 2. Vancomycin. 3. Meropenem. 4. Reglan. 5. Ferric sodium gluconate. 6. Zofran. 7. Pepcid. 8. Lasix. 9. Colace. 10. Cozaar 11. Lantus insulin. 12. Ondansetron hydrochloride. 13. Atorvastatin 40 mg daily. 14. Aspirin 81 mg daily. 15. [place] p.r.n. 16. Bactroban b.i.d., topical application. 17. Lopressor 25 mg twice a day. 18. Lorazepam 0.5 mg every 6 hours p.r.n. PHYSICAL EXAMINATION: GENERAL: Reveals an elderly male, who is sitting at the edge of the bed, and has a chest tube in mindy. The patient does have the recent scar on his chest from his open heart surgery. VITAL SIGNS: He weighs 93.8 kg and is 73 inches tall. ABDOMEN: Soft otherwise. GENITOURINARY: External genitalia are normal. RECTAL: Examination revealed a prostate that is slightly enlarged, but not to cause him any problem : EXTREMITIES: He has very edematous legs. LABORATORY DATA: His CBC shows a white count of 4.5, hemoglobin 8, hematocrit 26.3. BUN is 17, cre atinine 1.05, sodium 135, potassium 4.3, chloride 101, CO2 29. IMPRESSION: Gross hematuria. Patient is on anticoagulation because of his heart surgery. PLAN: Have the patient undergo renal ultrasound and pelvic ultrasound, then we will have an idea if there is any kidney stone or obstruction, and we will insert a Guerra catheter if there is a need fo r accurate monitoring of his urine output. I will do a renal ultrasound and pelvic ultrasound to se e if there is any stone or tumor in the kidneys or in the bladder, that one could see. I will follow his urological problem with you. I also did send an order for repeat urine cytology x 3 days, to see if there is any atypical or cancer cells. Dictated By: LIDIA CARRERA/JOSELINE Conf#: [id number] DID#: [id number]
[2016-11-11] MEDS: ACETAMINOPHEN 650 MG SUPP PR PRN (20:21)
[2016-11-11] MEDS ORDERED: MEROPENEM 500 MG/100 ML (PMX) 100 ML IVPB SCH ×2 (21:00→23:50)
[2016-11-11] MEDS: ATORVASTATIN 40 MG TAB PO SCH (21:55)
[2016-11-11] MEDS: HYDROCODONE/APAP (5/325) TAB PO PRN (22:02)
--- NOTE | 2016-11-11 23:08 | RADRPT ---
PROCEDURE: Renal US. CLINICAL INDICATION: gross hematuria TECHNIQUE: Multiple sonographic images of the kidneys were obtained. The images were reviewed on a PACS workstation. COMPARISON: No prior studies are available for comparison. FINDINGS: The kidneys are well visualized. The right kidney measures 12.9 centimeters. The left kidney measure s 12.3 cm. There are no focal areas of abnormal echogenicity. There is no evidence for obstructive u ropathy. IMPRESSION: 1. Unremarkable renal ultrasound. No hydronephrosis or visualized nephrolithiasis. RPTAT: HBST .Fahad Moyer MD, Date Time Electronically viewed and signed by .Fahad Moyer MD, on 11/11/2016 23:08 .T/
--- NOTE | 2016-11-11 23:08 | RADRPT ---
PROCEDURE: Ultrasound urinary bladder and prostate gland CLINICAL INDICATION: Hematuria TECHNIQUE: Sonographic evaluation of the prostate gland and urinary bladder was performed as trans abdominal imaging. COMPARISON: None available FINDINGS: The prostate gland measures 2.5 x 2.2 x 2.2 cm in dimension. The prostate volume approximates 6.24 c c. Prostate gland is overall normal appearance. Urinary bladder prevoid volume is 227 cc. Postvoid urinary bladder volume is 12.5 cc. There is a p osterior urinary bladder wall thickening of 1.2 cm. No intraluminal calculus or debris is identifie d. IMPRESSION: 1. Prostate volume approximates 6.24 cc which is within normal limits. 2. Minimal bladder postvoid residual. Nonspecific posterior urinary bladder wall thickening. A cy stitis cannot be excluded. RPTAT: [facility]VK .Philipp العراقي MD, MD Date Time Electronically viewed and signed by .Philipp العراقي MD, MD on 11/11/2016 23:08 .K/
--- NOTE | 2016-11-11 23:18 | CONS ---
Date/Time of Note Date/Time of Note DATE: 11/11/16 TIME: 23:15 Assessment/Plan Assessment/Plan Chief Complaint/Hosp Course Anemia S/P EGD ([facility]) Esophagitis POST BMBX- AT [facility] FINAL PATH - neg MONITOR BLOOD COUNT CLOSELY Gross hematuria. Patient is on anticoagulation because of his heart surgery. renal ultrasound and pelvic ultrasound urology f-up NSTEMI Multivessel CAD History of seizure History of alcoholism History of C difficile colitis Diabetes mellitus Problems: Consultation Date/Type/Reason Admit Date/Time Oct 27, 2016 at 22:32 Initial Consult Date 10/28/16 Type of Consultation: HEMEONC 24 HR Interval Summary Free Text/Dictation + HEMATURIA H/H- STABLE ON LOW LEVEL Exam/Review of Systems Vital Signs Vitals Vital Signs Date Time Temp Pulse Resp B/P Pulse Ox O2 Delivery O2 Flow Rate FiO2 11/11/16 20:17 101 11/11/16 20:11 102.9 16 137/64 90 11/11/16 14:57 21 11/09/16 20:55 Nasal Cannula 2.0 Intake and Output 11/10/16 11/10/16 11/11/16 15:00 23:00 07:00 Intake Total 110 ml Output Total 70 ml 50 ml Balance 40 ml -50 ml Results Result Diagram: 11/11/16 0648 11/11/16 0648 Results 24 hrs Laboratory Tests Test 11/11/16 06:48 11/11/16 07:35 11/11/16 12:07 11/11/16 16:37 White Blood Count 4.5 #L Red Blood Count 3.14 L Hemoglobin 8.0 L Hematocrit 26.3 L Mean Corpuscular Volume 83.8 Mean Corpuscular Hemoglobin 25.5 L Mean Corpuscular Hemoglobin Concent 30.4 L Red Cell Distribution Width 16.5 H Platelet Count 236 Mean Platelet Volume 9.3 Neutrophils % 62.5 Lymphocytes % 19.9 Monocytes % 11.3 H Eosinophils % 5.7 Basophils % 0.2 Nucleated Red Blood Cells % 0.0 Neutrophils # 2.8 Lymphocytes # 0.9 Monocytes # 0.5 Eosinophils # 0.3 Basophils # 0.0 Nucleated Red Blood Cells # 0.0 Sodium Level 135 Potassium Level 4.3 Chloride Level 101 Carbon Dioxide Level 29 Anion Gap 9 Blood Urea Nitrogen 17 Creatinine 1.05 Glucose Level 107 # Calcium Level 7.8 L Bedside Glucose 108 155 Urine Color YELLOW Urine Clarity TURBID H Urine pH 5.5 Urine Specific [place] 1.025 Urine Ketones NEGATIVE Urine Nitrite NEGATIVE Urine Bilirubin NEGATIVE Urine Urobilinogen 0.2 E.U./dL Urine Leukocyte Esterase 3+ H Urine Microscopic RBC 10-25 Urine Microscopic WBC >200 Urine Bacteria MODERATE Urine Hemoglobin 3+ H Urine Glucose NEGATIVE Urine Total Protein 2+ H Test 11/11/16 17:02 11/11/16 20:56 Bedside Glucose 133 139 Medications Medications Current Medications Lorazepam (Ativan) 0.5 mg Q6H PRN IV ANXIETY; Start 10/28/16 at 04:00 Acetaminophen (Tylenol Supp) 650 mg Q6H PRN [place] PAIN LEVEL 1-3 OR FEVER Last administered on 11/11/16 20:21; Admin Dose 650 MG; Start 10/28/16 at 04:00 Aspirin (Aspirin) 81 mg DAILY PO Last administered on 11/11/16 08:45; Admin Dose 81 MG; Start 10/28/16 at 09:00 Atorvastatin Calcium (Lipitor) 40 mg HS PO Last administered on 11/11/16 21:55 ; Admin Dose 40 MG; Start 10/28/16 at 21:00 Metoprolol Tartrate (Lopressor) 25 mg BID PO Last administered on 11/11/16 21: 54; Admin Dose 25 MG; Start 10/28/16 at 09:00 Acetaminophen/ Hydrocodone Bitart ([place] (5/325)) 1 tab Q4H PRN PO MODERATE PAIN LEVEL 4-6 Last administered on 11/10/16 18:44; Admin Dose 1 TAB; Start at 00:00 Acetaminophen/ Hydrocodone Bitart ([place] (5/325)) 2 tab Q4H PRN PO SEVERE PAIN LEVEL 7-10 Last administered on 11/11/16 22:02; Admin Dose 2 TAB; Start at 00:00 Lactobacillus Acidoph/Bulgaricus (Floranex) 1 tab BID PO Last administered on 21:55; Admin Dose 1 TAB; Start 10/30/16 at 13:00 Mupirocin (Bactroban) 1 applic BID TOP Last administered on 11/11/16 21:00; Admin Dose 1 APPLIC; Start 10/31/16 at 09:00; Stop 11/15/16 at 23:00 Lamotrigine (Lamictal) 200 mg BID PO Last administered on 11/11/16 21:55; Admin Dose 200 MG; Start 10/31/16 at 14:30 Miscellaneous Information 1 ea NOTE XX ; Start 10/31/16 at 13:30 Glucose (Glutose) 15 gm Q15M PRN PO DECREASED GLUCOSE; Start 10/31/16 at 13:30 Glucose (Glutose) 22.5 gm Q15M PRN PO DECREASED GLUCOSE; Start 10/31/16 at 13: 30 Dextrose (D50w Syringe) 25 ml Q15M PRN IV DECREASED GLUCOSE; Start 10/31/16 at 13:30 Dextrose (D50w Syringe) 50 ml Q15M PRN IV DECREASED GLUCOSE; Start 10/31/16 at 13:30 Glucagon (Glucagen) 1 mg Q15M PRN IM DECREASED GLUCOSE; Start 10/31/16 at 13:30 Glucose 15 gm 15 gm Q15M PRN BUCCAL DECREASED GLUCOSE; Start 10/31/16 at 13:30 Ondansetron HCl/ Sodium Chloride (Zofran Inj/NS) 54 ml @ 216 mls/hr Q6H PRN IV NAUSEA AND/OR VOMITING Last administered on 11/08/16 22:17; Admin Dose 216 MLS/HR; Start 11/02/16 at 23:30 Insulin Glargine (Lantus) 15 unit DAILY@20 SC Last administered on 11/10/16 20: 39; Admin Dose 15 UNIT; Start 11/05/16 at 20:00 Losartan Potassium (Cozaar) 25 mg DAILY PO Last administered on 11/11/16 08:44 ; Admin Dose 25 MG; Start 11/08/16 at 09:00 Docusate Sodium (Colace) 100 mg BID PO Last administered on 11/11/16 21:55; Admin Dose 100 MG; Start 11/08/16 at 21:00 Silver Sulfadiazine (Thermazene 1% 25 Gm) 1 applic BID TOP Last administered on 11/11/16 21:00; Admin Dose 1 APPLIC; Start 11/09/16 at 14:30 Furosemide (Lasix) 20 mg DAILY IV Last administered on 11/11/16 08:46; Admin Dose 20 MG; Start 11/09/16 at 16:00 Famotidine (Pepcid) 20 mg BID PO Last administered on 11/11/16 21:55; Admin Dose 20 MG; Start 11/09/16 at 21:00 Ondansetron HCl 4 mg 4 mg Q6H PRN IV nausea Last administered on 11/11/16 07:19 ; Admin Dose 4 MG; Start 11/10/16 at 03:00 Ferric Sodium Gluconate Complex/ Sodium Chloride (Ferrlecit/NS) 110 ml @ 110 mls/hr Q24H IVPB Last administered on 11/11/16 14:05; Admin Dose 110 MLS/HR; Start 11/10/16 at 14:00; Stop 11/14/16 at 14:59 Metoclopramide HCl 10 mg 10 mg Q6 IV Last administered on 11/11/16 17:14; Admin Dose 10 MG; Start 11/11/16 at 14:00; Stop 11/13/16 at 13:59 Meropenem 100 ml @ 200 mls/hr Q12 IVPB ; Start 11/11/16 at 21:00 Vancomycin HCl/ Sodium Chloride (Vancocin/NS) 250 ml @ 83.333 mls/ hr Q12H IVPB ; Start 11/12/16 at 04:00 Polyethylene Glycol (Miralax) 17 gm DAILY PO ; Start 11/12/16 at 09:00 BETO PADILLA MD Nov 11, 2016 23:17
[2016-11-12] VITALS (10 sets, daily range): BP systolic 88–116; BP diastolic 51–58; PULSE 62–78; RESP 18–19
[2016-11-12] MEDS: METOCLOPRAMIDE 10 MG INJ IV SCH ×5 (01:10→23:30)
[2016-11-12] MEDS: ACETAMINOPHEN 650 MG SUPP PR PRN (01:58)
[2016-11-12] MEDS: ONDANSETRON 4 MG INJ IV PRN ×3 (02:04→19:59)
[2016-11-12] MEDS ORDERED: VANCOMYCIN 1.25 GM in SOD CHLORIDE 0.9% 250 ML IVPB SCH (04:00)
[2016-11-12 07:08] LABS: ADD SCAN DIFF NO
[2016-11-12 07:13] LABS: ABNORMAL IP MESSAGE 1; BASOPHILS % 0.2 % (0.0-2.0); EOSINOPHILS # 0.1 10^3/ul (0.0-0.5); EOSINOPHILS % 0.5 % (0.0-7.0); HEMOGLOBIN 8.9 g/dl (14.0-18.0); LYMPHOCYTES # 0.3 10^3/ul (0.8-2.9); LYMPHOCYTES % 2.7 % (15.0-51.0); MEAN CORPUSCULAR HEMOGLOBIN 25.6 pg (29.0-33.0); MEAN CORPUSCULAR HGB CONC 30.7 g/dl (32.0-37.0); MEAN CORPUSCULAR VOLUME 83.6 fl (82.0-101.0); MEAN PLATELET VOLUME 9.2 fl (7.4-10.4); MONOCYTE # 0.4 10^3/ul (0.3-0.9); MONOCYTES % 4.4 % (0.0-11.0); NEUTROPHILS % 91.6 % (39.0-77.0); PLATELET COUNT 240 10^3/UL (140-415); RED BLOOD COUNT 3.47 10^6/ul (4.70-6.10); RED CELL DISTRIBUTION WIDTH 16.5 % (11.5-14.5); WHITE BLOOD COUNT 9.8 10^3/ul (4.8-10.8)
[2016-11-12 07:33] LABS: CALCIUM 7.7 mg/dl (8.4-10.2); CREATININE 1.05 mg/dl (0.61-1.24); MAGNESIUM 1.8 mg/dl (1.7-2.5); POTASSIUM 4.3 mmol/L (3.5-5.1)
[2016-11-12] MEDS: INSULIN ASPART [NOVOLOG] 3 ML PEN SC SCH ×7 (07:55→21:00)
[2016-11-12] MEDS: FAMOTIDINE 20 MG TAB PO SCH ×2 (08:24→21:54)
[2016-11-12] MEDS: LAMOTRIGINE 100 MG TAB PO SCH ×2 (08:24→21:54)
[2016-11-12] MEDS: LACTOBACILLUS CHEW TAB PO SCH ×2 (08:24→21:54)
[2016-11-12] MEDS: METOPROLOL 25 MG TAB PO SCH ×2 (08:25→21:00)
[2016-11-12] MEDS: SILVER SULFADIAZINE 1% 25 GM CR TOP SCH ×2 (08:25→21:56)
[2016-11-12] MEDS: FUROSEMIDE 20 MG INJ IV SCH (08:25)
[2016-11-12] MEDS: LOSARTAN 25 MG TAB PO SCH (08:25)
[2016-11-12] MEDS: MUPIROCIN 2% 22 GM OINT TOP SCH ×2 (08:26→21:57)
[2016-11-12] MEDS: DOCUSATE SODIUM 100 MG CAP PO SCH ×2 (08:33→21:53)
[2016-11-12] MEDS: POLYETHYLENE GLYCOL 17 GM PACKET PO SCH (08:33)
[2016-11-12] MEDS: ASPIRIN 81 MG TAB PO SCH (08:45)
[2016-11-12] MEDS: HYDROCODONE/APAP (5/325) TAB PO PRN ×3 (08:46→23:31)
[2016-11-12] MEDS: SOD FERRIC GLUC COMPLX 125 MG in SOD CHLORIDE 0.9% 100 ML IVPB SCH (14:05)
--- NOTE | 2016-11-12 15:17 | PN ---
Date/Time of Note Date/Time of Note DATE: 11/12/16 TIME: 15:11 Assessment/Plan VTE Prophylaxis VTE Prophylaxis Intervention: SCD's Lines/Catheters [facility] Peripheral IV Urinary Cath still in place: No Assessment/Plan Assessment/Plan 1. Post OP Sepsis 2/2 Candiduria and Fungemia 2. L sided Pleural effusion and possible infiltrate / CHF versus possible pneumonia 3. Coronary artery disease, NSTEMI, s/p CABG on 11/02/2016 4. Diabetes mellitus type 2 : well controlled on Lantus and [place]remeal insulin 5. H/o of upper GI bleeding with esophagitis on EGD, stable 6. Severe iron deficiency Microcytic anemia 2/2 chronic GI bleed s/p transfusion with stable hgb 7. Chronic Seizure disorder. stable on lamictal 8. Peripheral vascular disease status post foot amputation 9. Hematuria 10. Post Op Pneumothorax: improved s/p pigtail cath placement 11/09/16 PLAN: * Defer to ID for antifungal therapy for fungemia and funguria * Repeat CXR, if normal, will have radiology remove pigtail * Continue Reglan and laxative therapy for nausea and constipation * Appreciate recs for hematuria * Continue low dose lasix * Monitor hgb / may require transfusion * Continue post op mgt and supportive care * Iron replacement IV x 5days ongoiung PPx- SCDs/ PPI Subjective 24 Hr Interval Summary Free Text/Dictation Patient seen and examined. Having fevers with nausea Still with constipation Exam/Review of Systems Vital Signs Vitals Vital Signs Date Time Temp Pulse Resp B/P Pulse Ox O2 Delivery O2 Flow Rate FiO2 11/12/16 12:24 68 11/12/16 11:26 98.9 19 88/51 98 11/11/16 14:57 21 11/09/16 20:55 Nasal Cannula 2.0 Intake and Output 11/11/16 11/11/16 11/12/16 14:59 22:59 06:59 Intake Total 300 ml 1060 ml 650 ml Output Total 300 ml 1000 ml 450 ml Balance 0 ml 60 ml 200 ml Exam Constitutional: alert, obese, oriented Head: normocephalic Eyes: PERRL ENMT: mucosa pink and moist Neck: supple Respiratory: clear to auscultation, diminished breath sounds, No crackles/rales, No wheezing Cardiovascular: regular rate and rhythm, No murmurs/extra sounds Gastrointestinal: bowel sounds, non-tender, soft, No ascites Extremities: other (s/p healed transmetatarsal amputation R foot), No edema Neurological: lethargic Results Result Diagram: 11/12/16 0600 11/12/16 0600 Results 24 hrs Laboratory Tests Test 11/11/16 16:37 11/11/16 17:02 11/11/16 20:56 11/12/16 06:00 Urine Color YELLOW Urine Clarity TURBID H Urine pH 5.5 Urine Specific [place] 1.025 Urine Ketones NEGATIVE Urine Nitrite NEGATIVE Urine Bilirubin NEGATIVE Urine Urobilinogen 0.2 E.U./dL Urine Leukocyte Esterase 3+ H Urine Microscopic RBC 10-25 Urine Microscopic WBC >200 Urine Bacteria MODERATE Urine Hemoglobin 3+ H Urine Glucose NEGATIVE Urine Total Protein 2+ H Bedside Glucose 133 139 White Blood Count 9.8 # Red Blood Count 3.47 L Hemoglobin 8.9 L Hematocrit 29.0 L Mean Corpuscular Volume 83.6 Mean Corpuscular Hemoglobin 25.6 L Mean Corpuscular Hemoglobin Concent 30.7 L Red Cell Distribution Width 16.5 H Platelet Count 240 Mean Platelet Volume 9.2 Neutrophils % 91.6 H Lymphocytes % 2.7 L Monocytes % 4.4 Eosinophils % 0.5 Basophils % 0.2 Nucleated Red Blood Cells % 0.0 Neutrophils # 9.0 H Lymphocytes # 0.3 L Monocytes # 0.4 Eosinophils # 0.1 Basophils # 0.0 Nucleated Red Blood Cells # 0.0 Sodium Level 134 L Potassium Level 4.3 Chloride Level 100 Carbon Dioxide Level 29 Anion Gap 9 Blood Urea Nitrogen 19 Creatinine 1.05 Glucose Level 132 Calcium Level 7.7 L Magnesium Level 1.8 Test 11/12/16 08:13 11/12/16 11:39 Bedside Glucose 134 92 Medications Medications Current Medications Lorazepam (Ativan) 0.5 mg Q6H PRN IV ANXIETY; Start 10/28/16 at 04:00 Acetaminophen (Tylenol Supp) 650 mg Q6H PRN [place] PAIN LEVEL 1-3 OR FEVER Last administered on 11/12/16 01:58; Admin Dose 650 MG; Start 10/28/16 at 04:00 Aspirin (Aspirin) 81 mg DAILY PO Last administered on 11/12/16 08:45; Admin Dose 81 MG; Start 10/28/16 at 09:00 Atorvastatin Calcium (Lipitor) 40 mg HS PO Last administered on 11/11/16 21:55 ; Admin Dose 40 MG; Start 10/28/16 at 21:00 Metoprolol Tartrate (Lopressor) 25 mg BID PO Last administered on 11/12/16 08: 25; Admin Dose 25 MG; Start 10/28/16 at 09:00 Acetaminophen/ Hydrocodone Bitart ([place] (5/325)) 1 tab Q4H PRN PO MODERATE PAIN LEVEL 4-6 Last administered on 11/10/16 18:44; Admin Dose 1 TAB; Start at 00:00 Acetaminophen/ Hydrocodone Bitart ([place] (5/325)) 2 tab Q4H PRN PO SEVERE PAIN LEVEL 7-10 Last administered on 11/12/16 08:46; Admin Dose 2 TAB; Start at 00:00 Lactobacillus Acidoph/Bulgaricus (Floranex) 1 tab BID PO Last administered on 08:24; Admin Dose 1 TAB; Start 10/30/16 at 13:00 Mupirocin (Bactroban) 1 applic BID TOP Last administered on 11/12/16 08:26; Admin Dose 1 APPLIC; Start 10/31/16 at 09:00; Stop 11/15/16 at 23:00 Lamotrigine (Lamictal) 200 mg BID PO Last administered on 11/12/16 08:24; Admin Dose 200 MG; Start 10/31/16 at 14:30 Miscellaneous Information 1 ea NOTE XX ; Start 10/31/16 at 13:30 Glucose (Glutose) 15 gm Q15M PRN PO DECREASED GLUCOSE; Start 10/31/16 at 13:30 Glucose (Glutose) 22.5 gm Q15M PRN PO DECREASED GLUCOSE; Start 10/31/16 at 13: 30 Dextrose (D50w Syringe) 25 ml Q15M PRN IV DECREASED GLUCOSE; Start 10/31/16 at 13:30 Dextrose (D50w Syringe) 50 ml Q15M PRN IV DECREASED GLUCOSE; Start 10/31/16 at 13:30 Glucagon (Glucagen) 1 mg Q15M PRN IM DECREASED GLUCOSE; Start 10/31/16 at 13:30 Glucose 15 gm 15 gm Q15M PRN BUCCAL DECREASED GLUCOSE; Start 10/31/16 at 13:30 Ondansetron HCl/ Sodium Chloride (Zofran Inj/NS) 54 ml @ 216 mls/hr Q6H PRN IV NAUSEA AND/OR VOMITING Last administered on 11/08/16 22:17; Admin Dose 216 MLS/HR; Start 11/02/16 at 23:30 Insulin Glargine (Lantus) 15 unit DAILY@20 SC Last administered on 11/10/16 20: 39; Admin Dose 15 UNIT; Start 11/05/16 at 20:00 Losartan Potassium (Cozaar) 25 mg DAILY PO Last administered on 11/12/16 08:25 ; Admin Dose 25 MG; Start 11/08/16 at 09:00 Docusate Sodium (Colace) 100 mg BID PO Last administered on 11/12/16 08:33; Admin Dose 100 MG; Start 11/08/16 at 21:00 Silver Sulfadiazine (Thermazene 1% 25 Gm) 1 applic BID TOP Last administered on 11/12/16 08:25; Admin Dose 1 APPLIC; Start 11/09/16 at 14:30 Furosemide (Lasix) 20 mg DAILY IV Last administered on 11/12/16 08:25; Admin Dose 20 MG; Start 11/09/16 at 16:00 Famotidine (Pepcid) 20 mg BID PO Last administered on 11/12/16 08:24; Admin Dose 20 MG; Start 11/09/16 at 21:00 Ondansetron HCl 4 mg 4 mg Q6H PRN IV nausea Last administered on 11/12/16 11:11 ; Admin Dose 4 MG; Start 11/10/16 at 03:00 Ferric Sodium Gluconate Complex/ Sodium Chloride (Ferrlecit/NS) 110 ml @ 110 mls/hr Q24H IVPB Last administered on 11/12/16 14:05; Admin Dose 110 MLS/HR; Start 11/10/16 at 14:00; Stop 11/14/16 at 14:59 Metoclopramide HCl 10 mg 10 mg Q6 IV Last administered on 11/12/16 12:32; Admin Dose 10 MG; Start 11/11/16 at 14:00; Stop 11/13/16 at 13:59 Vancomycin HCl/ Sodium Chloride (Vancocin/NS) 250 ml @ 83.333 mls/ hr Q12H IVPB Last administered on 11/12/16 03:56; Admin Dose 83.333 MLS/HR; Start at 04:00 Polyethylene Glycol 17 gm 17 gm DAILY PO Last administered on 11/12/16 08:33; Admin Dose 17 GM; Start 11/12/16 at 09:00 Meropenem (Merrem 500 Mg/ 100 ml (Pmx)) 100 ml @ 200 mls/hr Q12 IVPB Last administered on 11/12/16 08:35; Admin Dose 200 MLS/HR; Start 11/11/16 at 23:50 Miscellaneous Information (*Rx Drug Level Order Reminder*) VANCO TROUGH @ 0, 300 ON... ONCE ONCE XX ; Start 11/13/16 at 03:00; Stop 11/13/16 at 03:01 TOMMY RAMOS Nov 12, 2016 15:17
--- NOTE | 2016-11-12 15:49 | CONS ---
Date/Time of Note Date/Time of Note DATE: 11/12/16 TIME: 15:47 Assessment/Plan Assessment/Plan Chief Complaint/Hosp Course Assessment: Status post NSTEMI Coronary artery disease - status post CABG 11/02/2016 (CORTEZ-prox LAD-distal LAD, SVG-OM1, SVG-OM2-PDA, SVG-OM3) Acute on chronic diastolic heart failure - diuresed and thoracentesis at [facility], now euvolemic Mild to moderate right apical pneumothorax - status post pigtail catheter 2016, per CT surgery Healthcare-associated pneumonia - per infectious disease Seizure disorder - initial presentation was seizure Diabetes mellitus Anemia - bone marrow biopsy reported to be negative Gross hematuria - per urology Esophagitis on EGD Status post right transmetatarsal amputation Recommendations: -pre-operative echocardiogram showed LVEF 55%, basal inferolateral and inferior hypokinesis -continue losartan 25mg daily and metoprolol 25mg BID -continue aspirin as tolerated, monitor hematuria -continue atorvastatin -post-operative care per surgery Problems: Consultation Date/Type/Reason Admit Date/Time Oct 27, 2016 at 22:32 Initial Consult Date 10/28/16 Type of Consultation: Cardiology 24 HR Interval Summary Free Text/Dictation Fever to 102.9 F last night. Detailed Summary Additional Comments 14 point review of systems without changes. Exam/Review of Systems Vital Signs Vitals Vital Signs Date Time Temp Pulse Resp B/P Pulse Ox O2 Delivery O2 Flow Rate FiO2 11/12/16 12:24 68 11/12/16 11:26 98.9 19 88/51 98 11/11/16 14:57 21 11/09/16 20:55 Nasal Cannula 2.0 Intake and Output 11/11/16 11/11/16 11/12/16 15:00 23:00 07:00 Intake Total 300 ml 1060 ml 650 ml Output Total 300 ml 1000 ml 450 ml Balance 0 ml 60 ml 200 ml Exam Constitutional: Alert, no distress Psych: Nl mood/affect Head: atraumatic, normocephalic Eyes: nl conjunctiva, nl lids Neck: non-tender, supple, No jvd Respiratory: clear to auscultation, No crackles/rales Cardiovascular: regular rate and rhythm Gastrointestinal: non-tender, soft Extremities: No clubbing, No cyanosis, No edema Neurological: Nl mental status, Nl speech Results Result Diagram: 11/12/16 0600 11/12/16 0600 Results 24 hrs Laboratory Tests Test 11/11/16 16:37 11/11/16 17:02 11/11/16 20:56 11/12/16 06:00 Urine Color YELLOW Urine Clarity TURBID H Urine pH 5.5 Urine Specific [place] 1.025 Urine Ketones NEGATIVE Urine Nitrite NEGATIVE Urine Bilirubin NEGATIVE Urine Urobilinogen 0.2 E.U./dL Urine Leukocyte Esterase 3+ H Urine Microscopic RBC 10-25 Urine Microscopic WBC >200 Urine Bacteria MODERATE Urine Hemoglobin 3+ H Urine Glucose NEGATIVE Urine Total Protein 2+ H Bedside Glucose 133 139 White Blood Count 9.8 # Red Blood Count 3.47 L Hemoglobin 8.9 L Hematocrit 29.0 L Mean Corpuscular Volume 83.6 Mean Corpuscular Hemoglobin 25.6 L Mean Corpuscular Hemoglobin Concent 30.7 L Red Cell Distribution Width 16.5 H Platelet Count 240 Mean Platelet Volume 9.2 Neutrophils % 91.6 H Lymphocytes % 2.7 L Monocytes % 4.4 Eosinophils % 0.5 Basophils % 0.2 Nucleated Red Blood Cells % 0.0 Neutrophils # 9.0 H Lymphocytes # 0.3 L Monocytes # 0.4 Eosinophils # 0.1 Basophils # 0.0 Nucleated Red Blood Cells # 0.0 Sodium Level 134 L Potassium Level 4.3 Chloride Level 100 Carbon Dioxide Level 29 Anion Gap 9 Blood Urea Nitrogen 19 Creatinine 1.05 Glucose Level 132 Calcium Level 7.7 L Magnesium Level 1.8 Test 11/12/16 08:13 11/12/16 11:39 Bedside Glucose 134 92 Medications Medications Current Medications Lorazepam (Ativan) 0.5 mg Q6H PRN IV ANXIETY; Start 10/28/16 at 04:00 Acetaminophen (Tylenol Supp) 650 mg Q6H PRN [place] PAIN LEVEL 1-3 OR FEVER Last administered on 11/12/16 01:58; Admin Dose 650 MG; Start 10/28/16 at 04:00 Aspirin (Aspirin) 81 mg DAILY PO Last administered on 11/12/16 08:45; Admin Dose 81 MG; Start 10/28/16 at 09:00 Atorvastatin Calcium (Lipitor) 40 mg HS PO Last administered on 11/11/16 21:55 ; Admin Dose 40 MG; Start 10/28/16 at 21:00 Metoprolol Tartrate (Lopressor) 25 mg BID PO Last administered on 11/12/16 08: 25; Admin Dose 25 MG; Start 10/28/16 at 09:00 Acetaminophen/ Hydrocodone Bitart ([place] (5/325)) 1 tab Q4H PRN PO MODERATE PAIN LEVEL 4-6 Last administered on 11/10/16 18:44; Admin Dose 1 TAB; Start at 00:00 Acetaminophen/ Hydrocodone Bitart ([place] (5/325)) 2 tab Q4H PRN PO SEVERE PAIN LEVEL 7-10 Last administered on 11/12/16 08:46; Admin Dose 2 TAB; Start at 00:00 Lactobacillus Acidoph/Bulgaricus (Floranex) 1 tab BID PO Last administered on 08:24; Admin Dose 1 TAB; Start 10/30/16 at 13:00 Mupirocin (Bactroban) 1 applic BID TOP Last administered on 11/12/16 08:26; Admin Dose 1 APPLIC; Start 10/31/16 at 09:00; Stop 11/15/16 at 23:00 Lamotrigine (Lamictal) 200 mg BID PO Last administered on 11/12/16 08:24; Admin Dose 200 MG; Start 10/31/16 at 14:30 Miscellaneous Information 1 ea NOTE XX ; Start 10/31/16 at 13:30 Glucose (Glutose) 15 gm Q15M PRN PO DECREASED GLUCOSE; Start 10/31/16 at 13:30 Glucose (Glutose) 22.5 gm Q15M PRN PO DECREASED GLUCOSE; Start 10/31/16 at 13: 30 Dextrose (D50w Syringe) 25 ml Q15M PRN IV DECREASED GLUCOSE; Start 10/31/16 at 13:30 Dextrose (D50w Syringe) 50 ml Q15M PRN IV DECREASED GLUCOSE; Start 10/31/16 at 13:30 Glucagon (Glucagen) 1 mg Q15M PRN IM DECREASED GLUCOSE; Start 10/31/16 at 13:30 Glucose 15 gm 15 gm Q15M PRN BUCCAL DECREASED GLUCOSE; Start 10/31/16 at 13:30 Ondansetron HCl/ Sodium Chloride (Zofran Inj/NS) 54 ml @ 216 mls/hr Q6H PRN IV NAUSEA AND/OR VOMITING Last administered on 11/08/16 22:17; Admin Dose 216 MLS/HR; Start 11/02/16 at 23:30 Insulin Glargine (Lantus) 15 unit DAILY@20 SC Last administered on 11/10/16 20: 39; Admin Dose 15 UNIT; Start 11/05/16 at 20:00 Losartan Potassium (Cozaar) 25 mg DAILY PO Last administered on 11/12/16 08:25 ; Admin Dose 25 MG; Start 11/08/16 at 09:00 Docusate Sodium (Colace) 100 mg BID PO Last administered on 11/12/16 08:33; Admin Dose 100 MG; Start 11/08/16 at 21:00 Silver Sulfadiazine (Thermazene 1% 25 Gm) 1 applic BID TOP Last administered on 11/12/16 08:25; Admin Dose 1 APPLIC; Start 11/09/16 at 14:30 Furosemide (Lasix) 20 mg DAILY IV Last administered on 11/12/16 08:25; Admin Dose 20 MG; Start 11/09/16 at 16:00 Famotidine (Pepcid) 20 mg BID PO Last administered on 11/12/16 08:24; Admin Dose 20 MG; Start 11/09/16 at 21:00 Ondansetron HCl 4 mg 4 mg Q6H PRN IV nausea Last administered on 11/12/16 11:11 ; Admin Dose 4 MG; Start 11/10/16 at 03:00 Ferric Sodium Gluconate Complex/ Sodium Chloride (Ferrlecit/NS) 110 ml @ 110 mls/hr Q24H IVPB Last administered on 11/12/16 14:05; Admin Dose 110 MLS/HR; Start 11/10/16 at 14:00; Stop 11/14/16 at 14:59 Metoclopramide HCl 10 mg 10 mg Q6 IV Last administered on 11/12/16 12:32; Admin Dose 10 MG; Start 11/11/16 at 14:00; Stop 11/13/16 at 13:59 Vancomycin HCl/ Sodium Chloride (Vancocin/NS) 250 ml @ 83.333 mls/ hr Q12H IVPB Last administered on 11/12/16 03:56; Admin Dose 83.333 MLS/HR; Start at 04:00 Polyethylene Glycol 17 gm 17 gm DAILY PO Last administered on 11/12/16 08:33; Admin Dose 17 GM; Start 11/12/16 at 09:00 Meropenem (Merrem 500 Mg/ 100 ml (Pmx)) 100 ml @ 200 mls/hr Q12 IVPB Last administered on 11/12/16 08:35; Admin Dose 200 MLS/HR; Start 11/11/16 at 23:50 Miscellaneous Information (*Rx Drug Level Order Reminder*) VANCO TROUGH @ 0, 300 ON... ONCE ONCE XX ; Start 11/13/16 at 03:00; Stop 11/13/16 at 03:01 NANCIE HUGHES MD Nov 12, 2016 15:49
--- NOTE | 2016-11-12 16:02 | CONS ---
Date/Time of Note Date/Time of Note DATE: 11/12/16 TIME: 15:59 Assessment/Plan Assessment/Plan Chief Complaint/Hosp Course SUBJECTIVE: Alert, doesn't feel good, c/o nausea and abdominal discomfort, s/p fever INDWELLINGS: Right chest pigtail catheter. PHYSICAL EXAMINATION: GENERAL: This is a well-developed, elderly man, who is awake, in no distress. HEENT: Head atraumatic, normocephalic. Sclerae anicteric. Buccal mucosa dry. NECK: Supple, trachea midline. CHEST: Chest rise is symmetrical. Breath sounds diminished to the bases. HEART: S1, S2. ABDOMEN: Soft, bowel tones present. EXTREMITIES: With bilateral lower extremities edema, dependent. ASSESSMENT: 1. Sepsis with Fungemia 2 to #2. 2. Fungal UTI 3. Status post pneumonia, with chest x-ray this morning revealing moderate pleural effusion with consolidative abnormalities. 4. Methicillin-resistant Staphylococcus aureus nares colonization. 5. Coronary artery disease, status post coronary artery bypass graft on 2016. 6. Diabetes. 7. Hx C dif PLAN: Will change abx to Cancidas, add empiric po Vanco, await for final cx DW staff DW pt Problems: Consultation Date/Type/Reason Admit Date/Time Oct 27, 2016 at 22:32 Initial Consult Date 10/28/16 Type of Consultation: id Exam/Review of Systems Vital Signs Vitals Vital Signs Date Time Temp Pulse Resp B/P Pulse Ox O2 Delivery O2 Flow Rate FiO2 11/12/16 12:24 68 11/12/16 11:26 98.9 19 88/51 98 11/11/16 14:57 21 11/09/16 20:55 Nasal Cannula 2.0 Intake and Output 11/11/16 11/11/16 11/12/16 15:00 23:00 07:00 Intake Total 300 ml 1060 ml 650 ml Output Total 300 ml 1000 ml 450 ml Balance 0 ml 60 ml 200 ml Results Result Diagram: 11/12/16 0600 11/12/16 0600 Results 24 hrs Laboratory Tests Test 11/11/16 16:37 11/11/16 17:02 11/11/16 20:56 11/12/16 06:00 Urine Color YELLOW Urine Clarity TURBID H Urine pH 5.5 Urine Specific [place] 1.025 Urine Ketones NEGATIVE Urine Nitrite NEGATIVE Urine Bilirubin NEGATIVE Urine Urobilinogen 0.2 E.U./dL Urine Leukocyte Esterase 3+ H Urine Microscopic RBC 10-25 Urine Microscopic WBC >200 Urine Bacteria MODERATE Urine Hemoglobin 3+ H Urine Glucose NEGATIVE Urine Total Protein 2+ H Bedside Glucose 133 139 White Blood Count 9.8 # Red Blood Count 3.47 L Hemoglobin 8.9 L Hematocrit 29.0 L Mean Corpuscular Volume 83.6 Mean Corpuscular Hemoglobin 25.6 L Mean Corpuscular Hemoglobin Concent 30.7 L Red Cell Distribution Width 16.5 H Platelet Count 240 Mean Platelet Volume 9.2 Neutrophils % 91.6 H Lymphocytes % 2.7 L Monocytes % 4.4 Eosinophils % 0.5 Basophils % 0.2 Nucleated Red Blood Cells % 0.0 Neutrophils # 9.0 H Lymphocytes # 0.3 L Monocytes # 0.4 Eosinophils # 0.1 Basophils # 0.0 Nucleated Red Blood Cells # 0.0 Sodium Level 134 L Potassium Level 4.3 Chloride Level 100 Carbon Dioxide Level 29 Anion Gap 9 Blood Urea Nitrogen 19 Creatinine 1.05 Glucose Level 132 Calcium Level 7.7 L Magnesium Level 1.8 Test 11/12/16 08:13 11/12/16 11:39 Bedside Glucose 134 92 Medications Medications Current Medications Lorazepam (Ativan) 0.5 mg Q6H PRN IV ANXIETY; Start 10/28/16 at 04:00 Acetaminophen (Tylenol Supp) 650 mg Q6H PRN [place] PAIN LEVEL 1-3 OR FEVER Last administered on 11/12/16 01:58; Admin Dose 650 MG; Start 10/28/16 at 04:00 Aspirin (Aspirin) 81 mg DAILY PO Last administered on 11/12/16 08:45; Admin Dose 81 MG; Start 10/28/16 at 09:00 Atorvastatin Calcium (Lipitor) 40 mg HS PO Last administered on 11/11/16 21:55 ; Admin Dose 40 MG; Start 10/28/16 at 21:00 Metoprolol Tartrate (Lopressor) 25 mg BID PO Last administered on 11/12/16 08: 25; Admin Dose 25 MG; Start 10/28/16 at 09:00 Acetaminophen/ Hydrocodone Bitart ([place] (5/325)) 1 tab Q4H PRN PO MODERATE PAIN LEVEL 4-6 Last administered on 11/10/16 18:44; Admin Dose 1 TAB; Start at 00:00 Acetaminophen/ Hydrocodone Bitart ([place] (5/325)) 2 tab Q4H PRN PO SEVERE PAIN LEVEL 7-10 Last administered on 11/12/16 08:46; Admin Dose 2 TAB; Start at 00:00 Lactobacillus Acidoph/Bulgaricus (Floranex) 1 tab BID PO Last administered on 08:24; Admin Dose 1 TAB; Start 10/30/16 at 13:00 Mupirocin (Bactroban) 1 applic BID TOP Last administered on 11/12/16 08:26; Admin Dose 1 APPLIC; Start 10/31/16 at 09:00; Stop 11/15/16 at 23:00 Lamotrigine (Lamictal) 200 mg BID PO Last administered on 11/12/16 08:24; Admin Dose 200 MG; Start 10/31/16 at 14:30 Miscellaneous Information 1 ea NOTE XX ; Start 10/31/16 at 13:30 Glucose (Glutose) 15 gm Q15M PRN PO DECREASED GLUCOSE; Start 10/31/16 at 13:30 Glucose (Glutose) 22.5 gm Q15M PRN PO DECREASED GLUCOSE; Start 10/31/16 at 13: 30 Dextrose (D50w Syringe) 25 ml Q15M PRN IV DECREASED GLUCOSE; Start 10/31/16 at 13:30 Dextrose (D50w Syringe) 50 ml Q15M PRN IV DECREASED GLUCOSE; Start 10/31/16 at 13:30 Glucagon (Glucagen) 1 mg Q15M PRN IM DECREASED GLUCOSE; Start 10/31/16 at 13:30 Glucose 15 gm 15 gm Q15M PRN BUCCAL DECREASED GLUCOSE; Start 10/31/16 at 13:30 Ondansetron HCl/ Sodium Chloride (Zofran Inj/NS) 54 ml @ 216 mls/hr Q6H PRN IV NAUSEA AND/OR VOMITING Last administered on 11/08/16 22:17; Admin Dose 216 MLS/HR; Start 11/02/16 at 23:30 Insulin Glargine (Lantus) 15 unit DAILY@20 SC Last administered on 11/10/16 20: 39; Admin Dose 15 UNIT; Start 11/05/16 at 20:00 Losartan Potassium (Cozaar) 25 mg DAILY PO Last administered on 11/12/16 08:25 ; Admin Dose 25 MG; Start 11/08/16 at 09:00 Docusate Sodium (Colace) 100 mg BID PO Last administered on 11/12/16 08:33; Admin Dose 100 MG; Start 11/08/16 at 21:00 Silver Sulfadiazine (Thermazene 1% 25 Gm) 1 applic BID TOP Last administered on 11/12/16 08:25; Admin Dose 1 APPLIC; Start 11/09/16 at 14:30 Furosemide (Lasix) 20 mg DAILY IV Last administered on 11/12/16 08:25; Admin Dose 20 MG; Start 11/09/16 at 16:00 Famotidine (Pepcid) 20 mg BID PO Last administered on 11/12/16 08:24; Admin Dose 20 MG; Start 11/09/16 at 21:00 Ondansetron HCl 4 mg 4 mg Q6H PRN IV nausea Last administered on 11/12/16 11:11 ; Admin Dose 4 MG; Start 11/10/16 at 03:00 Ferric Sodium Gluconate Complex/ Sodium Chloride (Ferrlecit/NS) 110 ml @ 110 mls/hr Q24H IVPB Last administered on 11/12/16 14:05; Admin Dose 110 MLS/HR; Start 11/10/16 at 14:00; Stop 11/14/16 at 14:59 Metoclopramide HCl 10 mg 10 mg Q6 IV Last administered on 11/12/16 12:32; Admin Dose 10 MG; Start 11/11/16 at 14:00; Stop 11/13/16 at 13:59 Vancomycin HCl/ Sodium Chloride (Vancocin/NS) 250 ml @ 83.333 mls/ hr Q12H IVPB Last administered on 11/12/16 03:56; Admin Dose 83.333 MLS/HR; Start at 04:00 Polyethylene Glycol 17 gm 17 gm DAILY PO Last administered on 11/12/16 08:33; Admin Dose 17 GM; Start 11/12/16 at 09:00 Meropenem (Merrem 500 Mg/ 100 ml (Pmx)) 100 ml @ 200 mls/hr Q12 IVPB Last administered on 11/12/16 08:35; Admin Dose 200 MLS/HR; Start 11/11/16 at 23:50 Miscellaneous Information (*Rx Drug Level Order Reminder*) VANCO TROUGH @ 0, 300 ON... ONCE ONCE XX ; Start 11/13/16 at 03:00; Stop 11/13/16 at 03:01 CINDY PINA NP Nov 12, 2016 16:02
--- NOTE | 2016-11-12 16:20 | RADRPT ---
PROCEDURE: XR Chest. CLINICAL INDICATION: Shortness of breath. History of right pneumothorax. TECHNIQUE: Single frontal view. COMPARISON: 11/11/2016. FINDINGS: The right pigtail chest tube is once again noted laterally. There is no right pneumothorax. The ri ght lung is clear. There is a moderate left pleural effusion with consolidation throughout the left mid and lower lung zones. The left upper lung zone is clear. The heart is enlarged. There are sternal wires. There is calcification in the aorta consistent with atherosclerosis. There is no left pneumothorax. IMPRESSION: 1. Right chest tube in satisfactory position. 2. Unchanged moderate left pleural effusion and atelectasis throughout the left mid and lower lung zones. 3. Cardiomegaly. Atherosclerosis. 4. Previous median sternotomy. RPTAT: QQ .Rc العلي MD, MD Date Time Electronically viewed and signed by .Rc العلي MD, MD on 11/12/2016 16:19 .R/
--- NOTE | 2016-11-12 16:22 | RADRPT ---
PROCEDURE: XR Abdomen. CLINICAL INDICATION: Abdomen pain. TECHNIQUE: AP supine abdomen x-ray. COMPARISON: None. FINDINGS: The bowel gas pattern is normal with no evidence of obstruction. There are sternal wires. There is left basilar atelectasis and moderate left pleural effusion. There are no abnormal calcifications overlying the urinary tracts. The osseus structures are unremarkable. IMPRESSION: 1. Sternal wires. 2. Left basilar atelectasis and moderate left pleural effusion. 3. No evidence of bowel obstruction. RPTAT: QQ .Rc العلي MD, MD Date Time Electronically viewed and signed by .Rc العلي MD, MD on 11/12/2016 16:21 .R/
[2016-11-12] MEDS ORDERED: CASPOFUNGIN 70 MG in SOD CHLORIDE 0.9% 250 ML IVPB ONE (18:00)
[2016-11-12] MEDS: VANCOMYCIN HCL 250 MG/5ML POSYG PO SCH (19:58)
[2016-11-12] MEDS: INSULIN GLARGINE [LANtus] 3 ML PEN SC SCH (20:00)
[2016-11-12] MEDS: ATORVASTATIN 40 MG TAB PO SCH (21:56)
--- NOTE | 2016-11-12 23:11 | CONS ---
Date/Time of Note Date/Time of Note DATE: 11/12/16 TIME: 23:10 Assessment/Plan Assessment/Plan Chief Complaint/Hosp Course Anemia S/P EGD ([facility]) Esophagitis POST BMBX- AT [facility] FINAL PATH - neg MONITOR BLOOD COUNT CLOSELY Gross hematuria. Patient is on anticoagulation because of his heart surgery. renal ultrasound and pelvic ultrasound urology f-up NSTEMI Multivessel CAD History of seizure History of alcoholism History of C difficile colitis Diabetes mellitus Problems: Consultation Date/Type/Reason Admit Date/Time Oct 27, 2016 at 22:32 Initial Consult Date 10/28/16 Type of Consultation: HEMEONC Reason for Consultation ANEMIA 24 HR Interval Summary Free Text/Dictation ALL NOTED POST 3 U PRBC COUNT STABLE NO BLEEDING FELLING BETTER Exam/Review of Systems Vital Signs Vitals Vital Signs Date Time Temp Pulse Resp B/P Pulse Ox O2 Delivery O2 Flow Rate FiO2 11/12/16 20:27 64 11/12/16 20:05 97.8 18 102/58 97 11/11/16 14:57 21 11/09/16 20:55 Nasal Cannula 2.0 Intake and Output 11/11/16 11/11/16 11/12/16 15:00 23:00 07:00 Intake Total 300 ml 1060 ml 650 ml Output Total 300 ml 1000 ml 450 ml Balance 0 ml 60 ml 200 ml Exam Constitutional: alert, obese, oriented Head: normocephalic Eyes: PERRL ENMT: mucosa pink and moist Neck: supple Respiratory: clear to auscultation, diminished breath sounds, No crackles/rales, No wheezing Cardiovascular: regular rate and rhythm, No murmurs/extra sounds Gastrointestinal: bowel sounds, non-tender, soft, No ascites Extremities: other (s/p healed transmetatarsal amputation R foot), No edema Neurological: lethargic Results Result Diagram: 11/12/16 0600 11/12/16 0600 Results 24 hrs Laboratory Tests Test 11/12/16 06:00 11/12/16 08:13 11/12/16 11:39 11/12/16 17:50 White Blood Count 9.8 # Red Blood Count 3.47 L Hemoglobin 8.9 L Hematocrit 29.0 L Mean Corpuscular Volume 83.6 Mean Corpuscular Hemoglobin 25.6 L Mean Corpuscular Hemoglobin Concent 30.7 L Red Cell Distribution Width 16.5 H Platelet Count 240 Mean Platelet Volume 9.2 Neutrophils % 91.6 H Lymphocytes % 2.7 L Monocytes % 4.4 Eosinophils % 0.5 Basophils % 0.2 Nucleated Red Blood Cells % 0.0 Neutrophils # 9.0 H Lymphocytes # 0.3 L Monocytes # 0.4 Eosinophils # 0.1 Basophils # 0.0 Nucleated Red Blood Cells # 0.0 Sodium Level 134 L Potassium Level 4.3 Chloride Level 100 Carbon Dioxide Level 29 Anion Gap 9 Blood Urea Nitrogen 19 Creatinine 1.05 Glucose Level 132 Calcium Level 7.7 L Magnesium Level 1.8 Bedside Glucose 134 92 90 Test 11/12/16 20:50 Bedside Glucose 112 Medications Medications Current Medications Lorazepam (Ativan) 0.5 mg Q6H PRN IV ANXIETY; Start 10/28/16 at 04:00 Acetaminophen (Tylenol Supp) 650 mg Q6H PRN [place] PAIN LEVEL 1-3 OR FEVER Last administered on 11/12/16 01:58; Admin Dose 650 MG; Start 10/28/16 at 04:00 Aspirin (Aspirin) 81 mg DAILY PO Last administered on 11/12/16 08:45; Admin Dose 81 MG; Start 10/28/16 at 09:00 Atorvastatin Calcium (Lipitor) 40 mg HS PO Last administered on 11/12/16 21:56 ; Admin Dose 40 MG; Start 10/28/16 at 21:00 Metoprolol Tartrate (Lopressor) 25 mg BID PO Last administered on 11/12/16 08: 25; Admin Dose 25 MG; Start 10/28/16 at 09:00 Acetaminophen/ Hydrocodone Bitart ([place] (5/325)) 1 tab Q4H PRN PO MODERATE PAIN LEVEL 4-6 Last administered on 11/10/16 18:44; Admin Dose 1 TAB; Start at 00:00 Acetaminophen/ Hydrocodone Bitart ([place] (5/325)) 2 tab Q4H PRN PO SEVERE PAIN LEVEL 7-10 Last administered on 11/12/16 17:38; Admin Dose 2 TAB; Start at 00:00 Lactobacillus Acidoph/Bulgaricus (Floranex) 1 tab BID PO Last administered on 21:54; Admin Dose 1 TAB; Start 10/30/16 at 13:00 Mupirocin (Bactroban) 1 applic BID TOP Last administered on 11/12/16 21:57; Admin Dose 1 APPLIC; Start 10/31/16 at 09:00; Stop 11/15/16 at 23:00 Lamotrigine (Lamictal) 200 mg BID PO Last administered on 11/12/16 21:54; Admin Dose 200 MG; Start 10/31/16 at 14:30 Miscellaneous Information 1 ea NOTE XX ; Start 10/31/16 at 13:30 Glucose (Glutose) 15 gm Q15M PRN PO DECREASED GLUCOSE; Start 10/31/16 at 13:30 Glucose (Glutose) 22.5 gm Q15M PRN PO DECREASED GLUCOSE; Start 10/31/16 at 13: 30 Dextrose (D50w Syringe) 25 ml Q15M PRN IV DECREASED GLUCOSE; Start 10/31/16 at 13:30 Dextrose (D50w Syringe) 50 ml Q15M PRN IV DECREASED GLUCOSE; Start 10/31/16 at 13:30 Glucagon (Glucagen) 1 mg Q15M PRN IM DECREASED GLUCOSE; Start 10/31/16 at 13:30 Glucose 15 gm 15 gm Q15M PRN BUCCAL DECREASED GLUCOSE; Start 10/31/16 at 13:30 Ondansetron HCl/ Sodium Chloride (Zofran Inj/NS) 54 ml @ 216 mls/hr Q6H PRN IV NAUSEA AND/OR VOMITING Last administered on 11/08/16 22:17; Admin Dose 216 MLS/HR; Start 11/02/16 at 23:30 Insulin Glargine (Lantus) 15 unit DAILY@20 SC Last administered on 11/10/16 20: 39; Admin Dose 15 UNIT; Start 11/05/16 at 20:00 Losartan Potassium (Cozaar) 25 mg DAILY PO Last administered on 11/12/16 08:25 ; Admin Dose 25 MG; Start 11/08/16 at 09:00 Docusate Sodium (Colace) 100 mg BID PO Last administered on 11/12/16 21:53; Admin Dose 100 MG; Start 11/08/16 at 21:00 Silver Sulfadiazine (Thermazene 1% 25 Gm) 1 applic BID TOP Last administered on 11/12/16 21:56; Admin Dose 1 APPLIC; Start 11/09/16 at 14:30 Furosemide (Lasix) 20 mg DAILY IV Last administered on 11/12/16 08:25; Admin Dose 20 MG; Start 11/09/16 at 16:00 Famotidine (Pepcid) 20 mg BID PO Last administered on 11/12/16 21:54; Admin Dose 20 MG; Start 11/09/16 at 21:00 Ondansetron HCl 4 mg 4 mg Q6H PRN IV nausea Last administered on 11/12/16 19:59 ; Admin Dose 4 MG; Start 11/10/16 at 03:00 Ferric Sodium Gluconate Complex/ Sodium Chloride (Ferrlecit/NS) 110 ml @ 110 mls/hr Q24H IVPB Last administered on 11/12/16 14:05; Admin Dose 110 MLS/HR; Start 11/10/16 at 14:00; Stop 11/14/16 at 14:59 Metoclopramide HCl (Reglan) 10 mg Q6 IV Last administered on 11/12/16 17:38; Admin Dose 10 MG; Start 11/11/16 at 14:00; Stop 11/13/16 at 13:59 Polyethylene Glycol 17 gm 17 gm DAILY PO Last administered on 11/12/16 08:33; Admin Dose 17 GM; Start 11/12/16 at 09:00 Caspofungin/ Sodium Chloride (Cancidas/NS) 250 ml @ 250 mls/hr Q24H IVPB ; Start 11/13/16 at 18:00 Vancomycin HCl (Vancomycin Oral Syringe) 125 mg Q6 PO Last administered on 19:58; Admin Dose 125 MG; Start 11/12/16 at 18:00 BETO PADILLA MD Nov 12, 2016 23:11
[2016-11-13] VITALS (12 sets, daily range): BP systolic 86–104; BP diastolic 52–65; PULSE 66–119; RESP 17–20
[2016-11-13] MEDS: VANCOMYCIN HCL 250 MG/5ML POSYG PO SCH ×4 (02:00→17:58)
[2016-11-13] MEDS ORDERED: AMIODARONE 150MG/D5W BOLUS 100 ML IV ONE (03:41)
--- NOTE | 2016-11-13 04:50 | PN ---
DATE: 11/12/2016 SUBJECTIVE: Hematuria. The patient is sitting on the edge of his bed and he appears to be comforta ble today. He does have significant edema of the lower extremities. The patient also does have a c hest tube that is draining blood-tinged drainage. The patient stated that he is voiding well and th at the urine is clear today and there is no dysuria or urgency. OBJECTIVE VITAL SIGNS: His temperature is 98.9, pulse is 62, respiration 19, blood pressure 88/51. ABDOMEN: Has some bruising on it. Also he does have the chest tube. EXTERNAL GENITALIA: He does have mild swelling, but he is okay. EXTREMITIES: He does have severe edema of both lower extremities. The patient is sitting at the ed ge of the bed dangling down his feet which promotes the edema and the swelling that he has. LABORATORY DATA: His CBC shows a white count of 9.8, hemoglobin 8.9, hematocrit 29.0. BUN is 19, c reatinine 1.05. Sodium 134, potassium 4.3, chloride 100, CO2 29. The patient underwent a renal ultrasound today and that was reported as normal. He also had a pelvi c ultrasound and that showed that the prostate is intact, small. The volume of the prostate is 6 mL which is very small. His prevoid volume was 227 and postvoid volume was 12.5 mL. So he does empty his bladder very well. The urine culture is showing yeast. The patient is on caspofungin for his yeast infection. PLAN: To continue the caspofungin. We are awaiting also the urine cytology that was ordered. There is preorder to have urine cytology daily for 3 days. I will await the results for that. Because o f his general medical condition now, I do not think any intervention or further workup for the hemat uria is going to be done. If he gets better, then later on we could do more workup including possib le cystoscopy. Dictated By: LIDIA CARRERA/JOSELINE Conf#: [id number] DID#: [id number]
[2016-11-13] MEDS: AMIODARONE 900 MG in DEXTROSE 5% 482 ML IV SCH ×2 (05:15→11:08)
[2016-11-13] MEDS: METOCLOPRAMIDE 10 MG INJ IV SCH ×3 (06:00→17:58)
[2016-11-13 07:53] LABS: ABNORMAL IP MESSAGE 1; ADD SCAN DIFF NO; BASOPHILS % 0.1 % (0.0-2.0); EOSINOPHILS # 0.3 10^3/ul (0.0-0.5); EOSINOPHILS % 4.3 % (0.0-7.0); HEMATOCRIT 28.7 % (42.0-52.0); HEMOGLOBIN 8.6 g/dl (14.0-18.0); LYMPHOCYTES # 0.5 10^3/ul (0.8-2.9); LYMPHOCYTES % 7.6 % (15.0-51.0); MEAN CORPUSCULAR HEMOGLOBIN 25.3 pg (29.0-33.0); MEAN CORPUSCULAR VOLUME 84.4 fl (82.0-101.0); MEAN PLATELET VOLUME 9.4 fl (7.4-10.4); MONOCYTE # 0.4 10^3/ul (0.3-0.9); MONOCYTES % 5.2 % (0.0-11.0); NEUTROPHIL # 5.5 10^3/ul (1.6-7.5); NEUTROPHILS % 82.4 % (39.0-77.0); PLATELET COUNT 212 10^3/UL (140-415); RED CELL DISTRIBUTION WIDTH 16.1 % (11.5-14.5); WHITE BLOOD COUNT 6.7 10^3/ul (4.8-10.8)
[2016-11-13 08:01] LABS: CALCIUM 7.6 mg/dl (8.4-10.2); CREATININE 1.2 mg/dl (0.61-1.24); POTASSIUM 4.3 mmol/L (3.5-5.1)
[2016-11-13] MEDS: FUROSEMIDE 20 MG INJ IV SCH (08:58)
[2016-11-13] MEDS: ASPIRIN 81 MG TAB PO SCH (08:59)
[2016-11-13] MEDS: LAMOTRIGINE 100 MG TAB PO SCH ×2 (08:59→20:45)
[2016-11-13] MEDS: LACTOBACILLUS CHEW TAB PO SCH ×2 (08:59→20:44)
[2016-11-13] MEDS: LOSARTAN 25 MG TAB PO SCH (08:59)
[2016-11-13] MEDS: DOCUSATE SODIUM 100 MG CAP PO SCH ×2 (08:59→20:44)
[2016-11-13] MEDS: POLYETHYLENE GLYCOL 17 GM PACKET PO SCH (09:00)
[2016-11-13] MEDS: METOPROLOL 25 MG TAB PO SCH (09:00)
[2016-11-13] MEDS: FAMOTIDINE 20 MG TAB PO SCH ×2 (09:00→20:46)
[2016-11-13] MEDS: HYDROCODONE/APAP (5/325) TAB PO PRN (09:01)
[2016-11-13] MEDS: SILVER SULFADIAZINE 1% 25 GM CR TOP SCH ×2 (09:01→20:44)
[2016-11-13] MEDS: MUPIROCIN 2% 22 GM OINT TOP SCH ×2 (09:01→20:44)
[2016-11-13] MEDS: ONDANSETRON 4 MG INJ IV PRN ×2 (09:02→20:42)
[2016-11-13] MEDS: INSULIN ASPART [NOVOLOG] 3 ML PEN SC SCH ×7 (09:21→20:47)
--- NOTE | 2016-11-13 10:46 | CONS ---
Date/Time of Note Date/Time of Note DATE: 11/13/16 TIME: 10:41 Assessment/Plan Assessment/Plan Chief Complaint/Hosp Course Atrial flutter: converted to atrial flutter 11/13. HR ~110-120s. Not uncommon post cardiac surgery. Not an anticoagulation candidate due to active hematuria Status post NSTEMI Coronary artery disease - status post CABG 11/02/2016 (CORTEZ-prox LAD-distal LAD, SVG-OM1, SVG-OM2-PDA, SVG-OM3) Acute on chronic diastolic heart failure - diuresed and thoracentesis at [facility]. Significant edema Mild to moderate right apical pneumothorax - status post pigtail catheter 2016, ?plan for removal Fungemia/fungal UTI: on therapy. Fevers resolved Healthcare-associated pneumonia - per infectious disease Seizure disorder - initial presentation was seizure Diabetes mellitus Anemia - bone marrow biopsy reported to be negative Gross hematuria - per urology Esophagitis on EGD Status post right transmetatarsal amputation -continue amiodarone drip with goal for rhythm control -in the meantime increase metoprolol to 50mg BID -d/c cozaar to allow room for BB titration -if HR cannot be controlled may consider cardioversion (only if anticoagulation candidate for at least 1 month) -continue aspirin as tolerated, monitor hematuria -continue atorvastatin Problems: Consultation Date/Type/Reason Admit Date/Time Oct 27, 2016 at 22:32 Type of Consultation: CARDIOLOGY 24 HR Interval Summary Free Text/Dictation Converted to atrial flutter overnight with HR ~110-120. Chest tube still in place. Still having hematuria Exam/Review of Systems Vital Signs Vitals Vital Signs Date Time Temp Pulse Resp B/P Pulse Ox O2 Delivery O2 Flow Rate FiO2 11/13/16 08:18 102 11/13/16 07:57 98.6 19 100/59 97 11/11/16 14:57 21 11/09/16 20:55 Nasal Cannula 2.0 Intake and Output 11/12/16 11/12/16 11/13/16 15:00 23:00 07:00 Intake Total 400 ml Balance 400 ml Exam Constitutional: alert, oriented Head: atraumatic, normocephalic Neck: jvd (8cm) Respiratory: diminished breath sounds (left base), No clear to auscultation Cardiovascular: edema (3+), No regular rate and rhythm (tachycardic, regular) Gastrointestinal: non-tender, soft Neurological: nl mental status, nl speech Results Result Diagram: 11/13/16 0500 11/13/16 0559 Results 24 hrs Laboratory Tests Test 11/12/16 11:39 11/12/16 17:50 11/12/16 20:50 11/13/16 05:00 Bedside Glucose 92 90 112 White Blood Count 6.7 # Red Blood Count 3.40 L Hemoglobin 8.6 L Hematocrit 28.7 L Mean Corpuscular Volume 84.4 Mean Corpuscular Hemoglobin 25.3 L Mean Corpuscular Hemoglobin Concent 30.0 L Red Cell Distribution Width 16.1 H Platelet Count 212 Mean Platelet Volume 9.4 Neutrophils % 82.4 H Lymphocytes % 7.6 L Monocytes % 5.2 Eosinophils % 4.3 Basophils % 0.1 Nucleated Red Blood Cells % 0.0 Neutrophils # 5.5 Lymphocytes # 0.5 L Monocytes # 0.4 Eosinophils # 0.3 Basophils # 0.0 Nucleated Red Blood Cells # 0.0 Test 11/13/16 05:59 11/13/16 09:17 Sodium Level 134 L Potassium Level 4.3 Chloride Level 98 Carbon Dioxide Level 30 Anion Gap 10 Blood Urea Nitrogen 28 H Creatinine 1.20 Glucose Level 121 Calcium Level 7.6 L Bedside Glucose 130 Medications Medications Current Medications Lorazepam (Ativan) 0.5 mg Q6H PRN IV ANXIETY; Start 10/28/16 at 04:00 Acetaminophen (Tylenol Supp) 650 mg Q6H PRN [place] PAIN LEVEL 1-3 OR FEVER Last administered on 11/12/16 01:58; Admin Dose 650 MG; Start 10/28/16 at 04:00 Aspirin (Aspirin) 81 mg DAILY PO Last administered on 11/13/16 08:59; Admin Dose 81 MG; Start 10/28/16 at 09:00 Atorvastatin Calcium (Lipitor) 40 mg HS PO Last administered on 11/12/16 21:56 ; Admin Dose 40 MG; Start 10/28/16 at 21:00 Metoprolol Tartrate (Lopressor) 25 mg BID PO Last administered on 11/13/16 09: 00; Admin Dose 25 MG; Start 10/28/16 at 09:00 Acetaminophen/ Hydrocodone Bitart ([place] (5/325)) 1 tab Q4H PRN PO MODERATE PAIN LEVEL 4-6 Last administered on 11/10/16 18:44; Admin Dose 1 TAB; Start at 00:00 Acetaminophen/ Hydrocodone Bitart ([place] (5/325)) 2 tab Q4H PRN PO SEVERE PAIN LEVEL 7-10 Last administered on 11/13/16 09:01; Admin Dose 2 TAB; Start at 00:00 Lactobacillus Acidoph/Bulgaricus (Floranex) 1 tab BID PO Last administered on 08:59; Admin Dose 1 TAB; Start 10/30/16 at 13:00 Mupirocin (Bactroban) 1 applic BID TOP Last administered on 11/13/16 09:01; Admin Dose 1 APPLIC; Start 10/31/16 at 09:00; Stop 11/15/16 at 23:00 Lamotrigine (Lamictal) 200 mg BID PO Last administered on 11/13/16 08:59; Admin Dose 200 MG; Start 10/31/16 at 14:30 Miscellaneous Information 1 ea NOTE XX ; Start 10/31/16 at 13:30 Glucose (Glutose) 15 gm Q15M PRN PO DECREASED GLUCOSE; Start 10/31/16 at 13:30 Glucose (Glutose) 22.5 gm Q15M PRN PO DECREASED GLUCOSE; Start 10/31/16 at 13: 30 Dextrose (D50w Syringe) 25 ml Q15M PRN IV DECREASED GLUCOSE; Start 10/31/16 at 13:30 Dextrose (D50w Syringe) 50 ml Q15M PRN IV DECREASED GLUCOSE; Start 10/31/16 at 13:30 Glucagon (Glucagen) 1 mg Q15M PRN IM DECREASED GLUCOSE; Start 10/31/16 at 13:30 Glucose 15 gm 15 gm Q15M PRN BUCCAL DECREASED GLUCOSE; Start 10/31/16 at 13:30 Ondansetron HCl/ Sodium Chloride (Zofran Inj/NS) 54 ml @ 216 mls/hr Q6H PRN IV NAUSEA AND/OR VOMITING Last administered on 11/08/16 22:17; Admin Dose 216 MLS/HR; Start 11/02/16 at 23:30 Insulin Glargine (Lantus) 15 unit DAILY@20 SC Last administered on 11/10/16 20: 39; Admin Dose 15 UNIT; Start 11/05/16 at 20:00 Losartan Potassium (Cozaar) 25 mg DAILY PO Last administered on 11/13/16 08:59 ; Admin Dose 25 MG; Start 11/08/16 at 09:00 Docusate Sodium (Colace) 100 mg BID PO Last administered on 11/13/16 08:59; Admin Dose 100 MG; Start 11/08/16 at 21:00 Silver Sulfadiazine (Thermazene 1% 25 Gm) 1 applic BID TOP Last administered on 11/13/16 09:01; Admin Dose 1 APPLIC; Start 11/09/16 at 14:30 Furosemide (Lasix) 20 mg DAILY IV Last administered on 11/13/16 08:58; Admin Dose 20 MG; Start 11/09/16 at 16:00 Famotidine (Pepcid) 20 mg BID PO Last administered on 11/13/16 09:00; Admin Dose 20 MG; Start 11/09/16 at 21:00 Ondansetron HCl 4 mg 4 mg Q6H PRN IV nausea Last administered on 11/13/16 09:02 ; Admin Dose 4 MG; Start 11/10/16 at 03:00 Ferric Sodium Gluconate Complex/ Sodium Chloride (Ferrlecit/NS) 110 ml @ 110 mls/hr Q24H IVPB Last administered on 11/12/16 14:05; Admin Dose 110 MLS/HR; Start 11/10/16 at 14:00; Stop 11/14/16 at 14:59 Metoclopramide HCl (Reglan) 10 mg Q6 IV Last administered on 11/12/16 23:30; Admin Dose 10 MG; Start 11/11/16 at 14:00; Stop 11/13/16 at 13:59 Polyethylene Glycol 17 gm 17 gm DAILY PO Last administered on 11/13/16 09:00; Admin Dose 17 GM; Start 11/12/16 at 09:00 Caspofungin/ Sodium Chloride (Cancidas/NS) 250 ml @ 250 mls/hr Q24H IVPB ; Start 11/13/16 at 18:00 Vancomycin HCl 125 mg 125 mg Q6 PO Last administered on 11/13/16 02:00; Admin Dose 125 MG; Start 11/12/16 at 18:00 Amiodarone HCl/ Dextrose (Cordarone Iv/ D5W) 500 ml @ 0 mls/hr Q0M IV Last administered on 11/13/16t 05:15; Admin Dose 33.33 MLS/HR; Start 11/13/16 at 04:00 TOMMIE PERALTA Nov 13, 2016 10:46
--- NOTE | 2016-11-13 12:02 | CONS ---
Date/Time of Note Date/Time of Note DATE: 11/13/16 TIME: 11:51 Assessment/Plan Assessment/Plan Chief Complaint/Hosp Course ID PROGRESS NOTE CURRENT ABX=> Cancidas #2, Vanco PO s/p Vanco IV + Merrem 24H INTERVAL SUMMARY * Seen earlier today resting, mild pallor, VSS, NAD< Aflutter started on Amiodarone GTT Not an anticoagulation candidate due to active hematuria * (+)Hematuria -> Sepsis with Fungemia/Yeast UTI * Pending Fluoroscopic guided removal of right chest catheter today * No diarrhea -- started on Vanco PO empirically for hx of C.Diff PHYSICAL EXAMINATION: GENERAL: VSS, NAD, Afebrile HEENT: Unremarkable NECK: Supple, trachea midline. CHEST: Rise symmetrical, without dyspnea on observation HEART: Pulse RRR ABDOMEN: Soft EXTREMITIES: Warm ID ASSESSMENT 61 yo M retired from the [employer] w/PMHx ETOH abuse, former tobaccoism admit [facility] with: 1. SIRS w/fevers + Fungemia 2nd Yeast UTI + hematuria -> Started on Cancidas 2. Multivessel CAD-> s/p NSTEMI followed by s/p CABG 11/02/2016. * Post op Aflutter -> started on Amiodarone 3. s/p Recent decompensated CHF. EF 55% 4. HCAP superimposed on Pl effusion. Probable exudative, but CHF related. 5. Seizure Disorder w/breakthrough SZs => Lamictal onboard 6. Diabetes mellitus 7. Anemia => S/P EGD ([facility]) w/(+) Esophagitis Hx of remote Colonscopy (-) 8. Current diarrhea w/hx of C difficile colitis-> (-)C.Diff toxin 10/30/16 9. TMA status -> Probable PAD 10. HTN 11. 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 Treated for maybe a year. No recent hemoptysis wt loss. 12. Lymphadenopathy. BMBx pending. 13. 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 (+)MRSA Nares Colonization-> treated w/Bactroban, Hibiclens, Vanco IV INVASIVES: PIV ABX ALLERGY: CURRENT ABX: TOTAL ABX DAY # => Cancidas #2 + Vanco PO Liquid Vanco IV + Bactroban ID RECOMMENDATIONS 1. Continue current ABX * No diarrhea -- appears he was started on Vanco PO empirically for hx of C.Diff + rising WBC & temperature yesterday 2. Observe over the weekend on ABX -> Reassess by ID team next week 3. Broad spectrum systemic ABX dc'd due to fungemia + risk of ?C.Diff . .. . Problems: Consultation Date/Type/Reason Admit Date/Time Oct 27, 2016 at 22:32 Initial Consult Date 10/28/16 Type of Consultation: ID Exam/Review of Systems Vital Signs Vitals Vital Signs Date Time Temp Pulse Resp B/P Pulse Ox O2 Delivery O2 Flow Rate FiO2 11/13/16 08:18 102 11/13/16 07:57 98.6 19 100/59 97 11/11/16 14:57 21 11/09/16 20:55 Nasal Cannula 2.0 Intake and Output 11/12/16 11/12/16 11/13/16 15:00 23:00 07:00 Intake Total 400 ml Balance 400 ml Results Result Diagram: 11/13/16 0500 11/13/16 0559 Results 24 hrs Laboratory Tests Test 11/12/16 17:50 11/12/16 20:50 11/13/16 05:00 11/13/16 05:59 Bedside Glucose 90 112 White Blood Count 6.7 # Red Blood Count 3.40 L Hemoglobin 8.6 L Hematocrit 28.7 L Mean Corpuscular Volume 84.4 Mean Corpuscular Hemoglobin 25.3 L Mean Corpuscular Hemoglobin Concent 30.0 L Red Cell Distribution Width 16.1 H Platelet Count 212 Mean Platelet Volume 9.4 Neutrophils % 82.4 H Lymphocytes % 7.6 L Monocytes % 5.2 Eosinophils % 4.3 Basophils % 0.1 Nucleated Red Blood Cells % 0.0 Neutrophils # 5.5 Lymphocytes # 0.5 L Monocytes # 0.4 Eosinophils # 0.3 Basophils # 0.0 Nucleated Red Blood Cells # 0.0 Sodium Level 134 L Potassium Level 4.3 Chloride Level 98 Carbon Dioxide Level 30 Anion Gap 10 Blood Urea Nitrogen 28 H Creatinine 1.20 Glucose Level 121 Calcium Level 7.6 L Test 11/13/16 09:17 Bedside Glucose 130 Medications Medications Current Medications Lorazepam (Ativan) 0.5 mg Q6H PRN IV ANXIETY; Start 10/28/16 at 04:00 Acetaminophen (Tylenol Supp) 650 mg Q6H PRN [place] PAIN LEVEL 1-3 OR FEVER Last administered on 11/12/16 01:58; Admin Dose 650 MG; Start 10/28/16 at 04:00 Aspirin (Aspirin) 81 mg DAILY PO Last administered on 11/13/16 08:59; Admin Dose 81 MG; Start 10/28/16 at 09:00 Atorvastatin Calcium (Lipitor) 40 mg HS PO Last administered on 11/12/16 21:56 ; Admin Dose 40 MG; Start 10/28/16 at 21:00 Acetaminophen/ Hydrocodone Bitart ([place] (5/325)) 1 tab Q4H PRN PO MODERATE PAIN LEVEL 4-6 Last administered on 11/10/16 18:44; Admin Dose 1 TAB; Start at 00:00 Acetaminophen/ Hydrocodone Bitart ([place] (5/325)) 2 tab Q4H PRN PO SEVERE PAIN LEVEL 7-10 Last administered on 11/13/16 09:01; Admin Dose 2 TAB; Start at 00:00 Lactobacillus Acidoph/Bulgaricus (Floranex) 1 tab BID PO Last administered on 08:59; Admin Dose 1 TAB; Start 10/30/16 at 13:00 Mupirocin (Bactroban) 1 applic BID TOP Last administered on 11/13/16 09:01; Admin Dose 1 APPLIC; Start 10/31/16 at 09:00; Stop 11/15/16 at 23:00 Lamotrigine (Lamictal) 200 mg BID PO Last administered on 11/13/16 08:59; Admin Dose 200 MG; Start 10/31/16 at 14:30 Miscellaneous Information 1 ea NOTE XX ; Start 10/31/16 at 13:30 Glucose (Glutose) 15 gm Q15M PRN PO DECREASED GLUCOSE; Start 10/31/16 at 13:30 Glucose (Glutose) 22.5 gm Q15M PRN PO DECREASED GLUCOSE; Start 10/31/16 at 13: 30 Dextrose (D50w Syringe) 25 ml Q15M PRN IV DECREASED GLUCOSE; Start 10/31/16 at 13:30 Dextrose (D50w Syringe) 50 ml Q15M PRN IV DECREASED GLUCOSE; Start 10/31/16 at 13:30 Glucagon (Glucagen) 1 mg Q15M PRN IM DECREASED GLUCOSE; Start 10/31/16 at 13:30 Glucose 15 gm 15 gm Q15M PRN BUCCAL DECREASED GLUCOSE; Start 10/31/16 at 13:30 Ondansetron HCl/ Sodium Chloride (Zofran Inj/NS) 54 ml @ 216 mls/hr Q6H PRN IV NAUSEA AND/OR VOMITING Last administered on 11/08/16 22:17; Admin Dose 216 MLS/HR; Start 11/02/16 at 23:30 Insulin Glargine (Lantus) 15 unit DAILY@20 SC Last administered on 11/10/16 20: 39; Admin Dose 15 UNIT; Start 11/05/16 at 20:00 Docusate Sodium (Colace) 100 mg BID PO Last administered on 11/13/16 08:59; Admin Dose 100 MG; Start 11/08/16 at 21:00 Silver Sulfadiazine (Thermazene 1% 25 Gm) 1 applic BID TOP Last administered on 11/13/16 09:01; Admin Dose 1 APPLIC; Start 11/09/16 at 14:30 Famotidine (Pepcid) 20 mg BID PO Last administered on 11/13/16 09:00; Admin Dose 20 MG; Start 11/09/16 at 21:00 Ondansetron HCl 4 mg 4 mg Q6H PRN IV nausea Last administered on 11/13/16 09:02 ; Admin Dose 4 MG; Start 11/10/16 at 03:00 Ferric Sodium Gluconate Complex/ Sodium Chloride (Ferrlecit/NS) 110 ml @ 110 mls/hr Q24H IVPB Last administered on 11/12/16 14:05; Admin Dose 110 MLS/HR; Start 11/10/16 at 14:00; Stop 11/14/16 at 14:59 Metoclopramide HCl (Reglan) 10 mg Q6 IV Last administered on 11/13/16 11:03; Admin Dose 10 MG; Start 11/11/16 at 14:00; Stop 11/13/16 at 13:59 Polyethylene Glycol 17 gm 17 gm DAILY PO Last administered on 11/13/16 09:00; Admin Dose 17 GM; Start 11/12/16 at 09:00 Caspofungin/ Sodium Chloride ([place]anc[place]/NS) 250 ml @ 250 mls/hr Q24H IVPB ; Start 11/13/16 at 18:00 Vancomycin HCl 125 mg 125 mg Q6 PO Last administered on 11/13/16 02:00; Admin Dose 125 MG; Start 11/12/16 at 18:00 Amiodarone HCl/ Dextrose (Cordarone Iv/ D5W) 500 ml @ 0 mls/hr Q0M IV Last administered on 11/13/16 11:08; Admin Dose 16.7 MLS/HR; Start 11/13/16 at 04:00 Metoprolol Tartrate (Lopressor) 50 mg BID PO ; Start 11/13/16 at 21:00 MIKE STEINBERG NP Nov 13, 2016 12:02
--- NOTE | 2016-11-13 12:23 | RADRPT ---
PROCEDURE: Fluoroscopic guided catheter removal. CLINICAL INDICATION: Right chest tube no longer required. TECHNIQUE: Prior to the procedure, informed consent was obtained. Risks including bleeding and inf ection, were explained to the patient. The patient understood and was willing to proceed. A procedur al pause was performed. The patient's name, date of , and procedure to be performed were [facility] ed. The skin sutures were removed. The existing drainage catheter in the right pleural space was cut a nd removed with fluoroscopic guidance. A postprocedure image was obtained. A total of 0.1 minutes of fluoroscopy time was used. COMPARISON: No prior studies are available for comparison. FINDINGS: The initial image demonstrates the right chest tube laterally in the right pleural space. The postp rocedure image demonstrates complete removal of the catheter. There is no pneumothorax. IMPRESSION: 1. Fluoroscopic guided removal of right chest catheter. RPTAT: VPH .Rc العلي MD, MD Date Time Electronically viewed and signed by .Rc العلي MD, on 11/13/2016 12:22 .R/
--- NOTE | 2016-11-13 12:47 | PN ---
Date/Time of Note Date/Time of Note DATE: 11/13/16 TIME: 12:36 Assessment/Plan VTE Prophylaxis VTE Prophylaxis Intervention: other (edema and active hematuria) Lines/Catheters IV C[facility]ter Type [facility] Peripheral IV Urinary Cath still in place: No Assessment/Plan Assessment/Plan 1. Post OP Sepsis 2/2 Candiduria and Fungemia 2. Recurrent L sided Pleural effusion and possible infiltrate / CHF versus possible pneumonia 3. Coronary artery disease, NSTEMI, s/p CABG on 11/02/2016 4. Diabetes mellitus type 2 : well controlled on Lantus and Premeal insulin 5. H/o of upper GI bleeding with esophagitis on EGD, stable 6. Severe iron deficiency Microcytic anemia 2/2 chronic GI bleed s/p transfusion with stable hgb 7. Chronic Seizure disorder. stable on lamictal 8. Peripheral vascular disease status post TMA R foot amputation 9. Hematuria 10. Post Op Pneumothorax: improved s/p pigtail cath placement 11/09/16 11. New onset Afib vs flutter 12. Prev Heavy tobacco and alcohol use PLAN: * Radiology to remove chest tube today per Dr Fonseca * Also will add L sided thoracentesis if possible / eval for hypoalbuminemia * Started on amiodarone drip per cardio / not a candidate for anticoagulation 2/ 2 hematuria * needs cystoscopy to eval postvoid hematuria but is not clinically stable for surgery / ?PSA / defer to urology * Continue IV abx and antifungals per ID * Continue Reglan and laxative therapy for nausea and constipation * Continue low dose lasix * Monitor hgb / may require transfusion * Continue post op mgt and supportive care * Iron replacement IV x 5days ongoiung PPx- SCDs/ PPI Subjective 24 Hr Interval Summary Free Text/Dictation * patient having active hematuria * still nauseous * still no BM Exam/Review of Systems Vital Signs Vitals Vital Signs Date Time Temp Pulse Resp B/P Pulse Ox O2 Delivery O2 Flow Rate FiO2 11/13/16 12:13 118 11/13/16 07:57 98.6 19 100/59 97 11/11/16 14:57 21 11/09/16 20:55 Nasal Cannula 2.0 Intake and Output 11/12/16 11/12/16 11/13/16 15:00 23:00 07:00 Intake Total 400 ml Balance 400 ml Exam Constitutional: alert, obese, oriented Head: normocephalic Eyes: PERRL ENMT: mucosa pink and moist Neck: supple Respiratory: clear to auscultation, diminished breath sounds, No crackles/rales, No wheezing Cardiovascular: regular rate and rhythm, No murmurs/extra sounds Gastrointestinal: bowel sounds, non-tender, soft, No ascites Extremities: other (s/p healed transmetatarsal amputation R foot), Maynor edema ++ Neurological: lethargic Results Result Diagram: 11/13/16 0500 11/13/16 0559 Results 24 hrs Laboratory Tests Test 11/12/16 17:50 11/12/16 20:50 11/13/16 05:00 11/13/16 05:59 Bedside Glucose 90 112 White Blood Count 6.7 # Red Blood Count 3.40 L Hemoglobin 8.6 L Hematocrit 28.7 L Mean Corpuscular Volume 84.4 Mean Corpuscular Hemoglobin 25.3 L Mean Corpuscular Hemoglobin Concent 30.0 L Red Cell Distribution Width 16.1 H Platelet Count 212 Mean Platelet Volume 9.4 Neutrophils % 82.4 H Lymphocytes % 7.6 L Monocytes % 5.2 Eosinophils % 4.3 Basophils % 0.1 Nucleated Red Blood Cells % 0.0 Neutrophils # 5.5 Lymphocytes # 0.5 L Monocytes # 0.4 Eosinophils # 0.3 Basophils # 0.0 Nucleated Red Blood Cells # 0.0 Sodium Level 134 L Potassium Level 4.3 Chloride Level 98 Carbon Dioxide Level 30 Anion Gap 10 Blood Urea Nitrogen 28 H Creatinine 1.20 Glucose Level 121 Calcium Level 7.6 L Test 11/13/16 09:17 11/13/16 12:27 Bedside Glucose 130 153 Medications Medications Current Medications Lorazepam (Ativan) 0.5 mg Q6H PRN IV ANXIETY; Start 10/28/16 at 04:00 Acetaminophen (Tylenol Supp) 650 mg Q6H PRN [place] PAIN LEVEL 1-3 OR FEVER Last administered on 11/12/16 01:58; Admin Dose 650 MG; Start 10/28/16 at 04:00 Aspirin (Aspirin) 81 mg DAILY PO Last administered on 11/13/16 08:59; Admin Dose 81 MG; Start 10/28/16 at 09:00 Atorvastatin Calcium (Lipitor) 40 mg HS PO Last administered on 11/12/16 21:56 ; Admin Dose 40 MG; Start 10/28/16 at 21:00 Acetaminophen/ Hydrocodone Bitart ([place] (5/325)) 1 tab Q4H PRN PO MODERATE PAIN LEVEL 4-6 Last administered on 11/10/16 18:44; Admin Dose 1 TAB; Start at 00:00 Acetaminophen/ Hydrocodone Bitart ([place] (5/325)) 2 tab Q4H PRN PO SEVERE PAIN LEVEL 7-10 Last administered on 11/13/16 09:01; Admin Dose 2 TAB; Start at 00:00 Lactobacillus Acidoph/Bulgaricus (Floranex) 1 tab BID PO Last administered on 08:59; Admin Dose 1 TAB; Start 10/30/16 at 13:00 Mupirocin (Bactroban) 1 applic BID TOP Last administered on 11/13/16 09:01; Admin Dose 1 APPLIC; Start 10/31/16 at 09:00; Stop 11/15/16 at 23:00 Lamotrigine (Lamictal) 200 mg BID PO Last administered on 11/13/16 08:59; Admin Dose 200 MG; Start 10/31/16 at 14:30 Miscellaneous Information 1 ea NOTE XX ; Start 10/31/16 at 13:30 Glucose (Glutose) 15 gm Q15M PRN PO DECREASED GLUCOSE; Start 10/31/16 at 13:30 Glucose (Glutose) 22.5 gm Q15M PRN PO DECREASED GLUCOSE; Start 10/31/16 at 13: 30 Dextrose (D50w Syringe) 25 ml Q15M PRN IV DECREASED GLUCOSE; Start 10/31/16 at 13:30 Dextrose (D50w Syringe) 50 ml Q15M PRN IV DECREASED GLUCOSE; Start 10/31/16 at 13:30 Glucagon (Glucagen) 1 mg Q15M PRN IM DECREASED GLUCOSE; Start 10/31/16 at 13:30 Glucose 15 gm 15 gm Q15M PRN BUCCAL DECREASED GLUCOSE; Start 10/31/16 at 13:30 Ondansetron HCl/ Sodium Chloride (Zofran Inj/NS) 54 ml @ 216 mls/hr Q6H PRN IV NAUSEA AND/OR VOMITING Last administered on 11/08/16 22:17; Admin Dose 216 MLS/HR; Start 11/02/16 at 23:30 Insulin Glargine (Lantus) 15 unit DAILY@20 SC Last administered on 11/10/16 20: 39; Admin Dose 15 UNIT; Start 11/05/16 at 20:00 Docusate Sodium (Colace) 100 mg BID PO Last administered on 11/13/16 08:59; Admin Dose 100 MG; Start 11/08/16 at 21:00 Silver Sulfadiazine (Thermazene 1% 25 Gm) 1 applic BID TOP Last administered on 11/13/16 09:01; Admin Dose 1 APPLIC; Start 11/09/16 at 14:30 Famotidine (Pepcid) 20 mg BID PO Last administered on 11/13/16 09:00; Admin Dose 20 MG; Start 11/09/16 at 21:00 Ondansetron HCl 4 mg 4 mg Q6H PRN IV nausea Last administered on 11/13/16 09:02 ; Admin Dose 4 MG; Start 11/10/16 at 03:00 Ferric Sodium Gluconate Complex/ Sodium Chloride (Ferrlecit/NS) 110 ml @ 110 mls/hr Q24H IVPB Last administered on 11/12/16 14:05; Admin Dose 110 MLS/HR; Start 11/10/16 at 14:00; Stop 11/14/16 at 14:59 Metoclopramide HCl (Reglan) 10 mg Q6 IV Last administered on 11/13/16 11:03; Admin Dose 10 MG; Start 11/11/16 at 14:00; Stop 11/13/16 at 13:59 Polyethylene Glycol 17 gm 17 gm DAILY PO Last administered on 11/13/16 09:00; Admin Dose 17 GM; Start 11/12/16 at 09:00 Caspofungin/ Sodium Chloride (Cancidas/NS) 250 ml @ 250 mls/hr Q24H IVPB ; Start 11/13/16 at 18:00 Vancomycin HCl 125 mg 125 mg Q6 PO Last administered on 11/13/16 02:00; Admin Dose 125 MG; Start 11/12/16 at 18:00 Amiodarone HCl/ Dextrose (Cordarone Iv/ D5W) 500 ml @ 0 mls/hr Q0M IV Last administered on 11/13/16 11:08; Admin Dose 16.7 MLS/HR; Start 11/13/16 at 04:00 Metoprolol Tartrate (Lopressor) 50 mg BID PO ; Start 11/13/16 at 21:00 Procedures Procedures PROCEDURE: XR Abdomen. CLINICAL INDICATION: Abdomen pain. TECHNIQUE: AP supine abdomen x-ray. COMPARISON: None. FINDINGS: The bowel gas pattern is normal with no evidence of obstruction. There are sternal wires. There is left basilar atelectasis and moderate left pleural effusion. There are no abnormal calcifications overlying the urinary tracts. The osseus structures are unremarkable. IMPRESSION: 1. Sternal wires. 2. Left basilar atelectasis and moderate left pleural effusion. 3. No evidence of bowel obstruction. RPTAT: QQ .Rc العلي MD, MD Date Time Electronically viewed and signed by .Rc العلي MD, MD on 11/12/2016 16:21 .R/ CC: TOMMY RAMOS BOLATITO M. Nov 13, 2016 12:47
[2016-11-13 13:46] LABS: ALBUMIN 2.5 g/dl (3.3-4.9)
[2016-11-13 13:48] LABS: BILIRUBIN,INDIRECT 0.6 mg/dl (0-1.1); BILIRUBIN,TOTAL 0.6 mg/dl (0.2-1.3)
[2016-11-13 13:49] LABS: TOTAL PROTEIN 5.6 g/dl (6.1-8.1)
[2016-11-13] MEDS: SOD FERRIC GLUC COMPLX 125 MG in SOD CHLORIDE 0.9% 100 ML IVPB SCH (15:46)
--- NOTE | 2016-11-13 15:49 | PN ---
DATE: 11/13/2016 SUBJECTIVE: Gross hematuria. The patient is still urinating blood. At the present, he is lying in bed and resting, and he does have edema of the lower extremities. OBJECTIVE: VITAL SIGNS: His temperature is 98.6, pulse 118, respirations 19, blood pressure 100/59. CHEST: The patient does have the chest tube. ABDOMEN: Soft. GENITOURINARY: The external genitalia are normal. LOWER EXTREMITIES: Edematous and swollen. LABORATORY DATA: His CBC shows a white count of 6.7, hemoglobin 8.6, hematocrit 28.7. The BUN is 2 8, creatinine 1.2, sodium 134, potassium 4.3, chloride 98, CO2 of 30. Urine was ordered for cytolog y x3 and so far we are just waiting for that it be done. MEDICATIONS: Include: 1. Lopressor. 2. Caspofungin because he does have yeast in his urine. 3. Reglan. 4. Amiodarone. 5. Vancomycin. 6. MiraLax. 7. Ferric sodium gluconate complex. 8. Zofran. 9. Pepcid. 10. Colace. 11. Insulin coverage. 12. Lamictal. 13. Bactroban. 14. Atorvastatin. 15. [place] p.r.n. 16. Aspirin 81 mg. 17. Ativan 0.5 mg p.r.n. 18. Tylenol. He did have a renal ultrasound and pelvic ultrasound. The renal ultrasound was unremarkable. There was no hydronephrosis or stones. The pelvic ultrasound showed that the prostate is not enlarged, a nd that the bladder is emptying well. The urine culture did show yeast and therefore, the patient i s on caspofungin and we shall send the urine for cytology. At the present, continue to observe him. Dictated By: LIDIA CARRERA/JOSELINE Conf#: [id number] DID#: [id number]
[2016-11-13] MEDS: CASPOFUNGIN 50 MG in SOD CHLORIDE 0.9% 250 ML IVPB SCH (17:59)
[2016-11-13] MEDS: INSULIN GLARGINE [LANtus] 3 ML PEN SC SCH (20:34)
[2016-11-13] MEDS: ATORVASTATIN 40 MG TAB PO SCH (20:45)
[2016-11-13] MEDS: METOPROLOL 50 MG TAB PO SCH (20:46)
--- NOTE | 2016-11-13 23:23 | CONS ---
Date/Time of Note Date/Time of Note DATE: 11/13/16 TIME: 23:23 Assessment/Plan Assessment/Plan Chief Complaint/Hosp Course Anemia S/P EGD ([facility]) Esophagitis POST BMBX- AT [facility] FINAL PATH - neg MONITOR BLOOD COUNT CLOSELY Gross hematuria. Patient is on anticoagulation because of his heart surgery. renal ultrasound and pelvic ultrasound urology f-up NSTEMI Multivessel CAD History of seizure History of alcoholism History of C difficile colitis Diabetes mellitus Problems: Consultation Date/Type/Reason Admit Date/Time Oct 27, 2016 at 22:32 Initial Consult Date 10/28/16 Type of Consultation: HEMEONC 24 HR Interval Summary Free Text/Dictation ALL NOTED COUNT REVIEWED Exam/Review of Systems Vital Signs Vitals Vital Signs Date Time Temp Pulse Resp B/P Pulse Ox O2 Delivery O2 Flow Rate FiO2 11/13/16 20:24 115 11/13/16 15:52 98.4 19 104/64 95 11/11/16 14:57 21 11/09/16 20:55 Nasal Cannula 2.0 Intake and Output 11/12/16 11/12/16 11/13/16 15:00 23:00 07:00 Intake Total 400 ml Balance 400 ml Exam Constitutional: alert, obese, oriented Head: normocephalic Eyes: PERRL ENMT: mucosa pink and moist Neck: supple Respiratory: clear to auscultation, diminished breath sounds, No crackles/rales, No wheezing Cardiovascular: regular rate and rhythm, No murmurs/extra sounds Gastrointestinal: bowel sounds, non-tender, soft, No ascites Extremities: other (s/p healed transmetatarsal amputation R foot), No edema Neurological: lethargic Results Result Diagram: 11/13/16 0500 11/13/16 0559 Results 24 hrs Laboratory Tests Test 11/13/16 05:00 11/13/16 05:59 11/13/16 09:17 11/13/16 12:27 White Blood Count 6.7 # Red Blood Count 3.40 L Hemoglobin 8.6 L Hematocrit 28.7 L Mean Corpuscular Volume 84.4 Mean Corpuscular Hemoglobin 25.3 L Mean Corpuscular Hemoglobin Concent 30.0 L Red Cell Distribution Width 16.1 H Platelet Count 212 Mean Platelet Volume 9.4 Neutrophils % 82.4 H Lymphocytes % 7.6 L Monocytes % 5.2 Eosinophils % 4.3 Basophils % 0.1 Nucleated Red Blood Cells % 0.0 Neutrophils # 5.5 Lymphocytes # 0.5 L Monocytes # 0.4 Eosinophils # 0.3 Basophils # 0.0 Nucleated Red Blood Cells # 0.0 Sodium Level 134 L Potassium Level 4.3 Chloride Level 98 Carbon Dioxide Level 30 Anion Gap 10 Blood Urea Nitrogen 28 H Creatinine 1.20 Glucose Level 121 Calcium Level 7.6 L Total Bilirubin 0.6 Direct Bilirubin 0.00 Indirect Bilirubin 0.6 Aspartate Amino Transf (AST/SGOT) 40 Alanine Aminotransferase (ALT/SGPT) 25 Alkaline Phosphatase 222 H Total Protein 5.6 L Albumin 2.5 L Bedside Glucose 130 153 Test 11/13/16 18:01 11/13/16 20:18 Bedside Glucose 163 117 Medications Medications Current Medications Lorazepam (Ativan) 0.5 mg Q6H PRN IV ANXIETY; Start 10/28/16 at 04:00 Acetaminophen (Tylenol Supp) 650 mg Q6H PRN [place] PAIN LEVEL 1-3 OR FEVER Last administered on 11/12/16 01:58; Admin Dose 650 MG; Start 10/28/16 at 04:00 Aspirin (Aspirin) 81 mg DAILY PO Last administered on 11/13/16 08:59; Admin Dose 81 MG; Start 10/28/16 at 09:00 Atorvastatin Calcium (Lipitor) 40 mg HS PO Last administered on 11/12/16 21:56 ; Admin Dose 40 MG; Start 10/28/16 at 21:00 Acetaminophen/ Hydrocodone Bitart ([place] (5/325)) 1 tab Q4H PRN PO MODERATE PAIN LEVEL 4-6 Last administered on 11/10/16 18:44; Admin Dose 1 TAB; Start at 00:00 Acetaminophen/ Hydrocodone Bitart ([place] (5/325)) 2 tab Q4H PRN PO SEVERE PAIN LEVEL 7-10 Last administered on 11/13/16 09:01; Admin Dose 2 TAB; Start at 00:00 Lactobacillus Acidoph/Bulgaricus (Floranex) 1 tab BID PO Last administered on 08:59; Admin Dose 1 TAB; Start 10/30/16 at 13:00 Mupirocin (Bactroban) 1 applic BID TOP Last administered on 11/13/16 20:44; Admin Dose 1 APPLIC; Start 10/31/16 at 09:00; Stop 11/15/16 at 23:00 Lamotrigine (Lamictal) 200 mg BID PO Last administered on 11/13/16 08:59; Admin Dose 200 MG; Start 10/31/16 at 14:30 Miscellaneous Information 1 ea NOTE XX ; Start 10/31/16 at 13:30 Glucose (Glutose) 15 gm Q15M PRN PO DECREASED GLUCOSE; Start 10/31/16 at 13:30 Glucose (Glutose) 22.5 gm Q15M PRN PO DECREASED GLUCOSE; Start 10/31/16 at 13: 30 Dextrose (D50w Syringe) 25 ml Q15M PRN IV DECREASED GLUCOSE; Start 10/31/16 at 13:30 Dextrose (D50w Syringe) 50 ml Q15M PRN IV DECREASED GLUCOSE; Start 10/31/16 at 13:30 Glucagon (Glucagen) 1 mg Q15M PRN IM DECREASED GLUCOSE; Start 10/31/16 at 13:30 Glucose 15 gm 15 gm Q15M PRN BUCCAL DECREASED GLUCOSE; Start 10/31/16 at 13:30 Ondansetron HCl/ Sodium Chloride (Zofran Inj/NS) 54 ml @ 216 mls/hr Q6H PRN IV NAUSEA AND/OR VOMITING Last administered on 11/08/16 22:17; Admin Dose 216 MLS/HR; Start 11/02/16 at 23:30 Insulin Glargine (Lantus) 15 unit DAILY@20 SC Last administered on 11/13/16 20: 34; Admin Dose 15 UNIT; Start 11/05/16 at 20:00 Docusate Sodium (Colace) 100 mg BID PO Last administered on 11/13/16 08:59; Admin Dose 100 MG; Start 11/08/16 at 21:00 Silver Sulfadiazine (Thermazene 1% 25 Gm) 1 applic BID TOP Last administered on 11/13/16 20:44; Admin Dose 1 APPLIC; Start 11/09/16 at 14:30 Famotidine (Pepcid) 20 mg BID PO Last administered on 11/13/16 09:00; Admin Dose 20 MG; Start 11/09/16 at 21:00 Ondansetron HCl 4 mg 4 mg Q6H PRN IV nausea Last administered on 11/13/16 20:42 ; Admin Dose 4 MG; Start 11/10/16 at 03:00 Ferric Sodium Gluconate Complex/ Sodium Chloride (Ferrlecit/NS) 110 ml @ 110 mls/hr Q24H IVPB Last administered on 11/13/16 15:46; Admin Dose 110 MLS/HR; Start 11/10/16 at 14:00; Stop 11/14/16 at 14:59 Polyethylene Glycol 17 gm 17 gm DAILY PO Last administered on 11/13/16 09:00; Admin Dose 17 GM; Start 11/12/16 at 09:00 Caspofungin/ Sodium Chloride (Cancidas/NS) 250 ml @ 250 mls/hr Q24H IVPB Last administered on 11/13/16 17:59; Admin Dose 250 MLS/HR; Start 11/13/16 at 18:00 Vancomycin HCl 125 mg 125 mg Q6 PO Last administered on 11/13/16 17:58; Admin Dose 125 MG; Start 11/12/16 at 18:00 Amiodarone HCl/ Dextrose (Cordarone Iv/ D5W) 500 ml @ 0 mls/hr Q0M IV Last administered on 11/13/16 11:08; Admin Dose 16.7 MLS/HR; Start 11/13/16 at 04:00 Metoprolol Tartrate (Lopressor) 50 mg BID PO ; Start 11/13/16 at 21:00 Metoclopramide HCl (Reglan) 10 mg Q6 IV Last administered on 11/13/16 17:58; Admin Dose 10 MG; Start 11/13/16 at 18:00 BETO PADILLA MD Nov 13, 2016 23:23
[2016-11-14] VITALS (13 sets, daily range): BP systolic 106–143; BP diastolic 56–86; PULSE 104–121; RESP 18–20
[2016-11-14] MEDS: METOCLOPRAMIDE 10 MG INJ IV SCH ×5 (00:37→23:59)
[2016-11-14] MEDS: VANCOMYCIN HCL 250 MG/5ML POSYG PO SCH ×5 (00:38→23:59)
[2016-11-14 06:47] LABS: ABNORMAL IP MESSAGE 1; ADD SCAN DIFF NO; BASOPHILS % 0.1 % (0.0-2.0); EOSINOPHILS # 0.2 10^3/ul (0.0-0.5); EOSINOPHILS % 3.1 % (0.0-7.0); HEMATOCRIT 30.1 % (42.0-52.0); LYMPHOCYTES # 0.5 10^3/ul (0.8-2.9); LYMPHOCYTES % 7.6 % (15.0-51.0); MEAN CORPUSCULAR HEMOGLOBIN 24.9 pg (29.0-33.0); MEAN CORPUSCULAR HGB CONC 29.9 g/dl (32.0-37.0); MEAN CORPUSCULAR VOLUME 83.1 fl (82.0-101.0); MEAN PLATELET VOLUME 9.1 fl (7.4-10.4); MONOCYTE # 0.4 10^3/ul (0.3-0.9); MONOCYTES % 5.9 % (0.0-11.0); NEUTROPHIL # 5.8 10^3/ul (1.6-7.5); PLATELET COUNT 226 10^3/UL (140-415); RED BLOOD COUNT 3.62 10^6/ul (4.70-6.10); RED CELL DISTRIBUTION WIDTH 15.9 % (11.5-14.5)
[2016-11-14] MEDS ORDERED: AMIODARONE 900 MG in DEXTROSE 5% 482 ML IV SCH ×4 (07:00)
[2016-11-14 07:03] LABS: ALBUMIN 2.7 g/dl (3.3-4.9)
[2016-11-14 07:06] LABS: BILIRUBIN,INDIRECT 0.6 mg/dl (0-1.1); BILIRUBIN,TOTAL 0.6 mg/dl (0.2-1.3); MAGNESIUM 2.1 mg/dl (1.7-2.5); TOTAL PROTEIN 5.6 g/dl (6.1-8.1)
[2016-11-14 07:08] LABS: INR 1.38; PT RATIO 1.3
[2016-11-14 07:09] LABS: PARTIAL THROMBOPLASTIN TIME 51.1 Sec (25.0-35.0)
[2016-11-14 07:23] LABS: CALCIUM 7.7 mg/dl (8.4-10.2); CREATININE 1.07 mg/dl (0.61-1.24)
[2016-11-14] MEDS: INSULIN ASPART [NOVOLOG] 3 ML PEN SC SCH ×7 (07:55→20:28)
[2016-11-14] MEDS: METOPROLOL 50 MG TAB PO SCH ×2 (08:57→18:39)
[2016-11-14] MEDS: ONDANSETRON 4 MG INJ IV PRN ×2 (08:58→20:21)
[2016-11-14] MEDS: LAMOTRIGINE 100 MG TAB PO SCH ×2 (08:58→20:21)
[2016-11-14] MEDS: POLYETHYLENE GLYCOL 17 GM PACKET PO SCH (09:00)
[2016-11-14] MEDS: DOCUSATE SODIUM 100 MG CAP PO SCH ×2 (09:00→20:21)
[2016-11-14] MEDS: FAMOTIDINE 20 MG TAB PO SCH ×2 (09:00→20:21)
[2016-11-14] MEDS: LACTOBACILLUS CHEW TAB PO SCH ×2 (09:00→20:21)
[2016-11-14] MEDS: ASPIRIN 81 MG TAB PO SCH (09:17)
[2016-11-14] MEDS: MUPIROCIN 2% 22 GM OINT TOP SCH ×2 (09:18→20:20)
[2016-11-14] MEDS: SILVER SULFADIAZINE 1% 25 GM CR TOP SCH ×2 (09:19→20:20)
--- NOTE | 2016-11-14 11:07 | PN ---
Date/Time of Note Date/Time of Note DATE: 11/14/16 TIME: 10:59 Assessment/Plan VTE Prophylaxis VTE Prophylaxis Intervention: SCD's VTE Contraindication Reason: bleeding (hematuria) Lines/Catheters IV Catheter Type (from Nrs): Peripheral IV Urinary Cath still in place: No Assessment/Plan Assessment/Plan 61 yo M who initially presented to [facility] with seizures and ended up having CABG now managed for 1. Post OP Sepsis 2/2 Candiduria and Fungemia 2. Recurrent L sided Pleural effusion and possible infiltrate / CHF versus possible pneumonia 3. New onset Afib vs flutter still in RVR 4. Hematuria ?cause : funguria versus occult malignancy? 5. H/o of upper GI bleeding with esophagitis on EGD, stable 6. Severe iron deficiency Microcytic anemia 2/2 chronic GI bleed s/p transfusion with stable hgb 7. Chronic Seizure disorder. stable on lamictal 8. Peripheral vascular disease status post TMA R foot amputation 9. Diabetes mellitus type 2 : well controlled on Lantus and Premeal insulin 10. Post Op Pneumothorax: resolved; s/p Chest tube placement 11/09/16 and removed 11/13/16 11. Coronary artery disease, NSTEMI, s/p CABG on 11/02/2016 12. Prev Heavy tobacco and alcohol use 13. Persistent nausea and constipation: no obstruction on KUB PLAN: * F/u urine cytology reports for hematuria / urology following / needs cystoscopy to eval hematuria but is not clinically stable for surgery / PSA pending * Thoracentesis still pending for L sided effusion * Will get CT of abd and pelvis to eval continued nausea and constipation as well as hematuria * Cardiology managing amiodarone and BB for Aflutter/ not a candidate for anticoagulation 2/2 hematuria * Continue IV abx and antifungals per ID * Continue Reglan and laxative therapy for nausea and constipation * Continue low dose lasix * Monitor hgb / may require transfusion * Continue post op mgt and supportive care * Iron replacement IV x 5days ongoing * Prognosis is guarded / patient has multiple critical issues PPx- SCDs/ PPI Subjective 24 Hr Interval Summary Free Text/Dictation Patient seen and examined. no hematuria today Exam/Review of Systems Vital Signs Vitals Vital Signs Date Time Temp Pulse Resp B/P Pulse Ox O2 Delivery O2 Flow Rate FiO2 11/14/16 08:11 113 11/14/16 07:19 98.5 19 137/73 95 11/13/16 20:40 Nasal Cannula 11/11/16 14:57 21 Intake and Output 11/13/16 11/13/16 11/14/16 15:00 23:00 07:00 Intake Total 600 ml 300 ml 900 ml Balance 600 ml 300 ml 900 ml Exam Constitutional: alert, obese, oriented Head: normocephalic Eyes: PERRL ENMT: mucosa pink and moist Neck: supple Respiratory: clear to auscultation, diminished breath sounds, No crackles/rales, No wheezing Cardiovascular: regular rate and rhythm, No murmurs/extra sounds Gastrointestinal: bowel sounds, non-tender, soft, No ascites Extremities: other (s/p healed transmetatarsal amputation R foot), [place] edema ++ Neurological: lethargic Results Result Diagram: 11/14/16 0610 11/14/16 0610 Results 24 hrs Laboratory Tests Test 11/13/16 12:27 11/13/16 18:01 11/13/16 20:18 11/14/16 06:10 Bedside Glucose 153 163 117 White Blood Count 7.0 Red Blood Count 3.62 L Hemoglobin 9.0 L Hematocrit 30.1 L Mean Corpuscular Volume 83.1 Mean Corpuscular Hemoglobin 24.9 L Mean Corpuscular Hemoglobin Concent 29.9 L Red Cell Distribution Width 15.9 H Platelet Count 226 Mean Platelet Volume 9.1 Neutrophils % 83.0 H Lymphocytes % 7.6 L Monocytes % 5.9 Eosinophils % 3.1 Basophils % 0.1 Nucleated Red Blood Cells % 0.0 Neutrophils # 5.8 Lymphocytes # 0.5 L Monocytes # 0.4 Eosinophils # 0.2 Basophils # 0.0 Nucleated Red Blood Cells # 0.0 Prothrombin Time 17.0 H Prothrombin Time Ratio 1.3 INR International Normalized Ratio 1.38 Activated Partial Thromboplast Time 51.1 H Sodium Level 134 L Potassium Level 4.0 Chloride Level 99 Carbon Dioxide Level 29 Anion Gap 10 Blood Urea Nitrogen 26 H Creatinine 1.07 Glucose Level 107 Calcium Level 7.7 L Magnesium Level 2.1 Total Bilirubin 0.6 Direct Bilirubin 0.00 Indirect Bilirubin 0.6 Aspartate Amino Transf (AST/SGOT) 32 Alanine Aminotransferase (ALT/SGPT) 30 Alkaline Phosphatase 461 #H Total Protein 5.6 L Albumin 2.7 L Test 11/14/16 08:18 Bedside Glucose 145 Medications Medications Current Medications Lorazepam (Ativan) 0.5 mg Q6H PRN IV ANXIETY; Start 10/28/16 at 04:00 Acetaminophen (Tylenol Supp) 650 mg Q6H PRN [place] PAIN LEVEL 1-3 OR FEVER Last administered on 11/12/16 01:58; Admin Dose 650 MG; Start 10/28/16 at 04:00 Aspirin (Aspirin) 81 mg DAILY PO Last administered on 11/14/16 09:17; Admin Dose 81 MG; Start 10/28/16 at 09:00 Atorvastatin Calcium (Lipitor) 40 mg HS PO Last administered on 11/12/16 21:56 ; Admin Dose 40 MG; Start 10/28/16 at 21:00 Acetaminophen/ Hydrocodone Bitart ([place] (5/325)) 1 tab Q4H PRN PO MODERATE PAIN LEVEL 4-6 Last administered on 11/10/16 18:44; Admin Dose 1 TAB; Start at 00:00 Acetaminophen/ Hydrocodone Bitart ([place] (5/325)) 2 tab Q4H PRN PO SEVERE PAIN LEVEL 7-10 Last administered on 11/13/16 09:01; Admin Dose 2 TAB; Start at 00:00 Lactobacillus Acidoph/Bulgaricus (Floranex) 1 tab BID PO Last administered on 08:59; Admin Dose 1 TAB; Start 10/30/16 at 13:00 Mupirocin (Bactroban) 1 applic BID TOP Last administered on 11/14/16 09:18; Admin Dose 1 APPLIC; Start 10/31/16 at 09:00; Stop 11/15/16 at 23:00 Lamotrigine (Lamictal) 200 mg BID PO Last administered on 11/14/16 08:58; Admin Dose 200 MG; Start 10/31/16 at 14:30 Miscellaneous Information 1 ea NOTE XX ; Start 10/31/16 at 13:30 Glucose (Glutose) 15 gm Q15M PRN PO DECREASED GLUCOSE; Start 10/31/16 at 13:30 Glucose (Glutose) 22.5 gm Q15M PRN PO DECREASED GLUCOSE; Start 10/31/16 at 13: 30 Dextrose (D50w Syringe) 25 ml Q15M PRN IV DECREASED GLUCOSE; Start 10/31/16 at 13:30 Dextrose (D50w Syringe) 50 ml Q15M PRN IV DECREASED GLUCOSE; Start 10/31/16 at 13:30 Glucagon (Glucagen) 1 mg Q15M PRN IM DECREASED GLUCOSE; Start 10/31/16 at 13:30 Glucose 15 gm 15 gm Q15M PRN BUCCAL DECREASED GLUCOSE; Start 10/31/16 at 13:30 Ondansetron HCl/ Sodium Chloride (Zofran Inj/NS) 54 ml @ 216 mls/hr Q6H PRN IV NAUSEA AND/OR VOMITING Last administered on 11/08/16 22:17; Admin Dose 216 MLS/HR; Start 11/02/16 at 23:30 Insulin Glargine (Lantus) 15 unit DAILY@20 SC Last administered on 11/13/16 20: 34; Admin Dose 15 UNIT; Start 11/05/16 at 20:00 Docusate Sodium (Colace) 100 mg BID PO Last administered on 11/13/16 08:59; Admin Dose 100 MG; Start 11/08/16 at 21:00 Silver Sulfadiazine (Thermazene 1% 25 Gm) 1 applic BID TOP Last administered on 11/14/16 09:19; Admin Dose 1 APPLIC; Start 11/09/16 at 14:30 Famotidine (Pepcid) 20 mg BID PO Last administered on 11/13/16 09:00; Admin Dose 20 MG; Start 11/09/16 at 21:00 Ondansetron HCl 4 mg 4 mg Q6H PRN IV nausea Last administered on 11/14/16 08:58 ; Admin Dose 4 MG; Start 11/10/16 at 03:00 Ferric Sodium Gluconate Complex/ Sodium Chloride (Ferrlecit/NS) 110 ml @ 110 mls/hr Q24H IVPB Last administered on 11/13/16 15:46; Admin Dose 110 MLS/HR; Start 11/10/16 at 14:00; Stop 11/14/16 at 14:59 Polyethylene Glycol 17 gm 17 gm DAILY PO Last administered on 11/13/16 09:00; Admin Dose 17 GM; Start 11/12/16 at 09:00 Caspofungin/ Sodium Chloride (Cancidas/NS) 250 ml @ 250 mls/hr Q24H IVPB Last administered on 11/13/16 17:59; Admin Dose 250 MLS/HR; Start 11/13/16 at 18:00 Vancomycin HCl (Vancomycin Oral Syringe) 125 mg Q6 PO Last administered on 00:38; Admin Dose 125 MG; Start 11/12/16 at 18:00 Metoprolol Tartrate (Lopressor) 50 mg BID PO Last administered on 11/14/16 08: 57; Admin Dose 50 MG; Start 11/13/16 at 21:00 Metoclopramide HCl 10 mg 10 mg Q6 IV Last administered on 11/14/16 06:15; Admin Dose 10 MG; Start 11/13/16 at 18:00 Amiodarone HCl/ Dextrose (Cordarone Iv/ D5W) 500 ml @ 0 mls/hr Q0M IV Last administered on 11/14/16 09:00; Admin Dose 16.7 MLS/HR; Start 11/14/16 at 07:00; Stop 11/15/16 at 06:59 Procedures Procedures ROCEDURE: XR Abdomen. CLINICAL INDICATION: Abdomen pain. TECHNIQUE: AP supine abdomen x-ray. COMPARISON: None. FINDINGS: The bowel gas pattern is normal with no evidence of obstruction. There are sternal wires. There is left basilar atelectasis and moderate left pleural effusion. There are no abnormal calcifications overlying the urinary tracts. The osseus structures are unremarkable. IMPRESSION: 1. Sternal wires. 2. Left basilar atelectasis and moderate left pleural effusion. 3. No evidence of bowel obstruction. RPTAT: QQ .Rc العلي MD, MD Date Time Electronically viewed and signed by .Rc العلي MD, on 11/12/2016 16:21 .R/ CC: TOMMY RAMOS BOLATITO M. Nov 14, 2016 11:07
--- NOTE | 2016-11-14 11:29 | CONS ---
Date/Time of Note Date/Time of Note DATE: 11/14/16 TIME: 11:26 Assessment/Plan Assessment/Plan Chief Complaint/Hosp Course Atrial flutter/fib: converted to atrial flutter 11/13. HR ~100-110s. Not uncommon post cardiac surgery. Not an anticoagulation candidate due to active hematuria Status post NSTEMI Coronary artery disease - status post CABG 11/02/2016 (CORTEZ-prox LAD-distal LAD, SVG-OM1, SVG-OM2-PDA, SVG-OM3) Acute on chronic diastolic heart failure - diuresed and thoracentesis at [facility]. Significant edema Mild to moderate right apical pneumothorax - status post pigtail catheter 2016, removed 11/13 Fungemia/fungal UTI: on therapy. Fevers resolved Healthcare-associated pneumonia - per infectious disease Seizure disorder - initial presentation was seizure Diabetes mellitus Anemia - bone marrow biopsy reported to be negative Gross hematuria - per urology Esophagitis on EGD Status post right transmetatarsal amputation -d/c amio drip, start 400mg PO BID -increase metoprolol to 50mg q8h -holdcozaar to allow room for BB titration -if HR cannot be controlled may consider cardioversion (only if anticoagulation candidate for at least 1 month) -continue aspirin as tolerated, monitor hematuria -continue atorvastatin Problems: Consultation Date/Type/Reason Admit Date/Time Oct 27, 2016 at 22:32 Type of Consultation: Cardiology 24 HR Interval Summary Free Text/Dictation Still in afib/flutter with rates 100-110. Feels better with chest tube removed. Still with hematuria Exam/Review of Systems Vital Signs Vitals Vital Signs Date Time Temp Pulse Resp B/P Pulse Ox O2 Delivery O2 Flow Rate FiO2 11/14/16 08:11 113 11/14/16 07:19 98.5 19 137/73 95 11/13/16 20:40 Nasal Cannula 11/11/16 14:57 21 Intake and Output 11/13/16 11/13/16 11/14/16 15:00 23:00 07:00 Intake Total 600 ml 300 ml 900 ml Balance 600 ml 300 ml 900 ml Exam Constitutional: alert, oriented Psych: no complaints Head: atraumatic, normocephalic Neck: jvd (8cm) Respiratory: crackles/rales, diminished breath sounds, No clear to auscultation Cardiovascular: edema (2+), No regular rate and rhythm (IRIR), No systolic murmur Results Result Diagram: 11/14/16 0610 11/14/16 0610 Results 24 hrs Laboratory Tests Test 11/13/16 12:27 11/13/16 18:01 11/13/16 20:18 11/14/16 06:10 Bedside Glucose 153 163 117 White Blood Count 7.0 Red Blood Count 3.62 L Hemoglobin 9.0 L Hematocrit 30.1 L Mean Corpuscular Volume 83.1 Mean Corpuscular Hemoglobin 24.9 L Mean Corpuscular Hemoglobin Concent 29.9 L Red Cell Distribution Width 15.9 H Platelet Count 226 Mean Platelet Volume 9.1 Neutrophils % 83.0 H Lymphocytes % 7.6 L Monocytes % 5.9 Eosinophils % 3.1 Basophils % 0.1 Nucleated Red Blood Cells % 0.0 Neutrophils # 5.8 Lymphocytes # 0.5 L Monocytes # 0.4 Eosinophils # 0.2 Basophils # 0.0 Nucleated Red Blood Cells # 0.0 Prothrombin Time 17.0 H Prothrombin Time Ratio 1.3 INR International Normalized Ratio 1.38 Activated Partial Thromboplast Time 51.1 H Sodium Level 134 L Potassium Level 4.0 Chloride Level 99 Carbon Dioxide Level 29 Anion Gap 10 Blood Urea Nitrogen 26 H Creatinine 1.07 Glucose Level 107 Calcium Level 7.7 L Magnesium Level 2.1 Total Bilirubin 0.6 Direct Bilirubin 0.00 Indirect Bilirubin 0.6 Aspartate Amino Transf (AST/SGOT) 32 Alanine Aminotransferase (ALT/SGPT) 30 Alkaline Phosphatase 461 #H Total Protein 5.6 L Albumin 2.7 L Test 11/14/16 08:18 Bedside Glucose 145 Medications Medications Current Medications Lorazepam (Ativan) 0.5 mg Q6H PRN IV ANXIETY; Start 10/28/16 at 04:00 Acetaminophen (Tylenol Supp) 650 mg Q6H PRN [place] PAIN LEVEL 1-3 OR FEVER Last administered on 11/12/16 01:58; Admin Dose 650 MG; Start 10/28/16 at 04:00 Aspirin (Aspirin) 81 mg DAILY PO Last administered on 11/14/16 09:17; Admin Dose 81 MG; Start 10/28/16 at 09:00 Atorvastatin Calcium (Lipitor) 40 mg HS PO Last administered on 11/12/16 21:56 ; Admin Dose 40 MG; Start 10/28/16 at 21:00 Acetaminophen/ Hydrocodone Bitart ([place] (5/325)) 1 tab Q4H PRN PO MODERATE PAIN LEVEL 4-6 Last administered on 11/10/16 18:44; Admin Dose 1 TAB; Start at 00:00 Acetaminophen/ Hydrocodone Bitart ([place] (5/325)) 2 tab Q4H PRN PO SEVERE PAIN LEVEL 7-10 Last administered on 11/13/16 09:01; Admin Dose 2 TAB; Start at 00:00 Lactobacillus Acidoph/Bulgaricus (Floranex) 1 tab BID PO Last administered on 08:59; Admin Dose 1 TAB; Start 10/30/16 at 13:00 Mupirocin (Bactroban) 1 applic BID TOP Last administered on 11/14/16 09:18; Admin Dose 1 APPLIC; Start 10/31/16 at 09:00; Stop 11/15/16 at 23:00 Lamotrigine (Lamictal) 200 mg BID PO Last administered on 11/14/16 08:58; Admin Dose 200 MG; Start 10/31/16 at 14:30 Miscellaneous Information 1 ea NOTE XX ; Start 10/31/16 at 13:30 Glucose (Glutose) 15 gm Q15M PRN PO DECREASED GLUCOSE; Start 10/31/16 at 13:30 Glucose (Glutose) 22.5 gm Q15M PRN PO DECREASED GLUCOSE; Start 10/31/16 at 13: 30 Dextrose (D50w Syringe) 25 ml Q15M PRN IV DECREASED GLUCOSE; Start 10/31/16 at 13:30 Dextrose (D50w Syringe) 50 ml Q15M PRN IV DECREASED GLUCOSE; Start 10/31/16 at 13:30 Glucagon (Glucagen) 1 mg Q15M PRN IM DECREASED GLUCOSE; Start 10/31/16 at 13:30 Glucose 15 gm 15 gm Q15M PRN BUCCAL DECREASED GLUCOSE; Start 10/31/16 at 13:30 Ondansetron HCl/ Sodium Chloride (Zofran Inj/NS) 54 ml @ 216 mls/hr Q6H PRN IV NAUSEA AND/OR VOMITING Last administered on 11/08/16 22:17; Admin Dose 216 MLS/HR; Start 11/02/16 at 23:30 Insulin Glargine (Lantus) 15 unit DAILY@20 SC Last administered on 11/13/16 20: 34; Admin Dose 15 UNIT; Start 11/05/16 at 20:00 Docusate Sodium (Colace) 100 mg BID PO Last administered on 11/13/16 08:59; Admin Dose 100 MG; Start 11/08/16 at 21:00 Silver Sulfadiazine (Thermazene 1% 25 Gm) 1 applic BID TOP Last administered on 11/14/16 09:19; Admin Dose 1 APPLIC; Start 11/09/16 at 14:30 Famotidine (Pepcid) 20 mg BID PO Last administered on 11/13/16 09:00; Admin Dose 20 MG; Start 11/09/16 at 21:00 Ondansetron HCl 4 mg 4 mg Q6H PRN IV nausea Last administered on 11/14/16 08:58 ; Admin Dose 4 MG; Start 11/10/16 at 03:00 Ferric Sodium Gluconate Complex/ Sodium Chloride (Ferrlecit/NS) 110 ml @ 110 mls/hr Q24H IVPB Last administered on 11/13/16 15:46; Admin Dose 110 MLS/HR; Start 11/10/16 at 14:00; Stop 11/14/16 at 14:59 Polyethylene Glycol 17 gm 17 gm DAILY PO Last administered on 11/13/16 09:00; Admin Dose 17 GM; Start 11/12/16 at 09:00 Caspofungin/ Sodium Chloride (Cancidas/NS) 250 ml @ 250 mls/hr Q24H IVPB Last administered on 11/13/16 17:59; Admin Dose 250 MLS/HR; Start 11/13/16 at 18:00 Vancomycin HCl (Vancomycin Oral Syringe) 125 mg Q6 PO Last administered on 00:38; Admin Dose 125 MG; Start 11/12/16 at 18:00 Metoprolol Tartrate (Lopressor) 50 mg BID PO Last administered on 11/14/16 08: 57; Admin Dose 50 MG; Start 11/13/16 at 21:00 Metoclopramide HCl 10 mg 10 mg Q6 IV Last administered on 11/14/16 06:15; Admin Dose 10 MG; Start 11/13/16 at 18:00 Amiodarone HCl/ Dextrose (Cordarone Iv/ D5W) 500 ml @ 0 mls/hr Q0M IV Last administered on 11/14/16t 09:00; Admin Dose 16.7 MLS/HR; Start 11/14/16 at 07:00; Stop 11/15/16 at 06:59 TOMMIE PERALTA Nov 14, 2016 11:29
[2016-11-14] MEDS: AMIODARONE 200 MG TAB PO SCH ×2 (13:37→20:21)
[2016-11-14] MEDS: SOD FERRIC GLUC COMPLX 125 MG in SOD CHLORIDE 0.9% 100 ML IVPB SCH (16:11)
[2016-11-14] MEDS: CASPOFUNGIN 50 MG in SOD CHLORIDE 0.9% 250 ML IVPB SCH (18:37)
[2016-11-14] MEDS: INSULIN GLARGINE [LANtus] 3 ML PEN SC SCH (20:00)
--- NOTE | 2016-11-14 20:09 | CONS ---
Date/Time of Note Date/Time of Note DATE: 11/14/16 TIME: 20:06 Assessment/Plan Assessment/Plan Chief Complaint/Hosp Course ID PROGRESS NOTE CURRENT ABX=> Cancidas #3, Vanco PO s/p Vanco IV + Merrem 24H INTERVAL SUMMARY * A/A/O -- resting in bed -- no fevers, no complaints, sternal wound healing well approximated * s/p recent Aflutter started on Amiodarone GTT Not an anticoagulation candidate due to active hematuria * (+)Hematuria -> Sepsis with Fungemia/Yeast UTI * No diarrhea -- started on Vanco PO empirically for hx of C.Diff PHYSICAL EXAMINATION: GENERAL: VSS, NAD, Afebrile HEENT: Unremarkable NECK: Supple, trachea midline. CHEST: Rise symmetrical, without dyspnea on observation HEART: Pulse RRR ABDOMEN: Soft EXTREMITIES: Warm ID ASSESSMENT 61 yo M retired from the [employer] w/PMHx ETOH abuse, former tobaccoism admit [facility] with: 1. SIRS w/fevers + Fungemia 2nd Yeast UTI + hematuria -> Started on Cancidas 2. Multivessel CAD-> s/p NSTEMI followed by s/p CABG 11/02/2016. * Post op Aflutter -> started on Amiodarone 3. s/p Recent decompensated CHF. EF 55% 4. HCAP superimposed on Pl effusion. Probable exudative, but CHF related. 5. Seizure Disorder w/breakthrough SZs => Lamictal onboard 6. Diabetes mellitus 7. Anemia => S/P EGD ([facility]) w/(+) Esophagitis Hx of remote Colonscopy (-) 8. Current diarrhea w/hx of C difficile colitis-> (-)C.Diff toxin 10/30/16 9. TMA status -> Probable PAD 10. HTN 11. 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 Treated for maybe a year. No recent hemoptysis wt loss. 12. Lymphadenopathy. BMBx pending. 13. 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 (+)MRSA Nares ->s/p RX w/Bactroban, Hibiclens, Vanco IV INVASIVES: PIV ABX ALLERGY: CURRENT ABX: TOTAL ABX DAY # => Cancidas #3 + Vanco PO Liquid s/p Vanco IV + Bactroban ID RECOMMENDATIONS 1. Continue current ABX * No diarrhea -- appears he was started on Vanco PO empirically for hx of C.Diff + rising WBC & temperature 2. Observe over the weekend on ABX -> Reassess by ID team next week 3. Broad spectrum systemic ABX dc'd due to fungemia + risk of ?C.Diff == he is doing well off systemic ABX . .. . Problems: Consultation Date/Type/Reason Admit Date/Time Oct 27, 2016 at 22:32 Initial Consult Date 10/28/16 Type of Consultation: ID Exam/Review of Systems Vital Signs Vitals Vital Signs Date Time Temp Pulse Resp B/P Pulse Ox O2 Delivery O2 Flow Rate FiO2 11/14/16 16:19 98.6 119 19 114/86 91 11/14/16 08:15 Nasal Cannula 11/11/16 14:57 21 Intake and Output 11/13/16 11/13/16 11/14/16 15:00 23:00 07:00 Intake Total 600 ml 300 ml 900 ml Balance 600 ml 300 ml 900 ml Results Result Diagram: 11/14/16 0610 11/14/16 0610 Results 24 hrs Laboratory Tests Test 11/13/16 20:18 11/14/16 06:10 11/14/16 08:18 11/14/16 13:09 Bedside Glucose 117 145 124 White Blood Count 7.0 Red Blood Count 3.62 L Hemoglobin 9.0 L Hematocrit 30.1 L Mean Corpuscular Volume 83.1 Mean Corpuscular Hemoglobin 24.9 L Mean Corpuscular Hemoglobin Concent 29.9 L Red Cell Distribution Width 15.9 H Platelet Count 226 Mean Platelet Volume 9.1 Neutrophils % 83.0 H Lymphocytes % 7.6 L Monocytes % 5.9 Eosinophils % 3.1 Basophils % 0.1 Nucleated Red Blood Cells % 0.0 Neutrophils # 5.8 Lymphocytes # 0.5 L Monocytes # 0.4 Eosinophils # 0.2 Basophils # 0.0 Nucleated Red Blood Cells # 0.0 Prothrombin Time 17.0 H Prothrombin Time Ratio 1.3 INR International Normalized Ratio 1.38 Activated Partial Thromboplast Time 51.1 H Sodium Level 134 L Potassium Level 4.0 Chloride Level 99 Carbon Dioxide Level 29 Anion Gap 10 Blood Urea Nitrogen 26 H Creatinine 1.07 Glucose Level 107 Calcium Level 7.7 L Magnesium Level 2.1 Total Bilirubin 0.6 Direct Bilirubin 0.00 Indirect Bilirubin 0.6 Aspartate Amino Transf (AST/SGOT) 32 Alanine Aminotransferase (ALT/SGPT) 30 Alkaline Phosphatase 461 #H Total Protein 5.6 L Albumin 2.7 L Test 11/14/16 18:47 Bedside Glucose 143 Medications Medications Current Medications Lorazepam (Ativan) 0.5 mg Q6H PRN IV ANXIETY; Start 10/28/16 at 04:00 Acetaminophen (Tylenol Supp) 650 mg Q6H PRN [place] PAIN LEVEL 1-3 OR FEVER Last administered on 11/12/16 01:58; Admin Dose 650 MG; Start 10/28/16 at 04:00 Aspirin (Aspirin) 81 mg DAILY PO Last administered on 11/14/16 09:17; Admin Dose 81 MG; Start 10/28/16 at 09:00 Atorvastatin Calcium (Lipitor) 40 mg HS PO Last administered on 11/12/16 21:56 ; Admin Dose 40 MG; Start 10/28/16 at 21:00 Acetaminophen/ Hydrocodone Bitart (Burns (5/325)) 1 tab Q4H PRN PO MODERATE PAIN LEVEL 4-6 Last administered on 11/10/16 18:44; Admin Dose 1 TAB; Start at 00:00 Acetaminophen/ Hydrocodone Bitart (Burns (5/325)) 2 tab Q4H PRN PO SEVERE PAIN LEVEL 7-10 Last administered on 11/13/16 09:01; Admin Dose 2 TAB; Start at 00:00 Lactobacillus Acidoph/Bulgaricus (Floranex) 1 tab BID PO Last administered on 08:59; Admin Dose 1 TAB; Start 10/30/16 at 13:00 Mupirocin (Bactroban) 1 applic BID TOP Last administered on 11/14/16 09:18; Admin Dose 1 APPLIC; Start 10/31/16 at 09:00; Stop 11/15/16 at 23:00 Lamotrigine (Lamictal) 200 mg BID PO Last administered on 11/14/16 08:58; Admin Dose 200 MG; Start 10/31/16 at 14:30 Miscellaneous Information 1 ea NOTE XX ; Start 10/31/16 at 13:30 Glucose (Glutose) 15 gm Q15M PRN PO DECREASED GLUCOSE; Start 10/31/16 at 13:30 Glucose (Glutose) 22.5 gm Q15M PRN PO DECREASED GLUCOSE; Start 10/31/16 at 13: 30 Dextrose (D50w Syringe) 25 ml Q15M PRN IV DECREASED GLUCOSE; Start 10/31/16 at 13:30 Dextrose (D50w Syringe) 50 ml Q15M PRN IV DECREASED GLUCOSE; Start 10/31/16 at 13:30 Glucagon (Glucagen) 1 mg Q15M PRN IM DECREASED GLUCOSE; Start 10/31/16 at 13:30 Glucose 15 gm 15 gm Q15M PRN BUCCAL DECREASED GLUCOSE; Start 10/31/16 at 13:30 Ondansetron HCl/ Sodium Chloride (Zofran Inj/NS) 54 ml @ 216 mls/hr Q6H PRN IV NAUSEA AND/OR VOMITING Last administered on 11/08/16 22:17; Admin Dose 216 MLS/HR; Start 11/02/16 at 23:30 Insulin Glargine (Lantus) 15 unit DAILY@20 SC Last administered on 11/13/16 20: 34; Admin Dose 15 UNIT; Start 11/05/16 at 20:00 Docusate Sodium (Colace) 100 mg BID PO Last administered on 11/13/16 08:59; Admin Dose 100 MG; Start 11/08/16 at 21:00 Silver Sulfadiazine (Thermazene 1% 25 Gm) 1 applic BID TOP Last administered on 11/14/16 09:19; Admin Dose 1 APPLIC; Start 11/09/16 at 14:30 Famotidine (Pepcid) 20 mg BID PO Last administered on 11/13/16 09:00; Admin Dose 20 MG; Start 11/09/16 at 21:00 Ondansetron HCl (Zofran Inj) 4 mg Q6H PRN IV nausea Last administered on 08:58; Admin Dose 4 MG; Start 11/10/16 at 03:00 Polyethylene Glycol 17 gm 17 gm DAILY PO Last administered on 11/13/16 09:00; Admin Dose 17 GM; Start 11/12/16 at 09:00 Caspofungin/ Sodium Chloride (Cancidas/NS) 250 ml @ 250 mls/hr Q24H IVPB Last administered on 11/14/16 18:37; Admin Dose 250 MLS/HR; Start 11/13/16 at 18:00 Vancomycin HCl (Vancomycin Oral Syringe) 125 mg Q6 PO Last administered on 18:38; Admin Dose 125 MG; Start 11/12/16 at 18:00 Metoclopramide HCl (Reglan) 10 mg Q6 IV Last administered on 11/14/16 18:37; Admin Dose 10 MG; Start 11/13/16 at 18:00 Metoprolol Tartrate (Lopressor) 50 mg Q8H PO Last administered on 11/14/16 18: 39; Admin Dose 50 MG; Start 11/14/16 at 17:00 Amiodarone HCl (Cordarone) 400 mg BID PO Last administered on 11/14/16 13:37; Admin Dose 400 MG; Start 11/14/16 at 11:30 MIKE STEINBERG NP Nov 14, 2016 20:09
[2016-11-14] MEDS: ATORVASTATIN 40 MG TAB PO SCH (20:21)
--- NOTE | 2016-11-14 21:14 | CONS ---
Date/Time of Note Date/Time of Note DATE: 11/14/16 TIME: 21:06 Assessment/Plan Assessment/Plan Chief Complaint/Hosp Course Anemia S/P EGD ([facility]) Esophagitis POST BMBX- AT SO FINAL PATH - P MONITOR BLOOD COUNT CLOSELY NSTEMI Multivessel CAD History of seizure History of alcoholism History of C difficile colitis Diabetes mellitus Problems: Consultation Date/Type/Reason Admit Date/Time Oct 27, 2016 at 22:32 Initial Consult Date 10/28/16 Type of Consultation: HEMEONC Reason for Consultation ANEMIA Referring Provider: DANA ESCUDERO DO 24 HR Interval Summary Free Text/Dictation Patient was transferred from [place]. for Cardiac Cath i saw pt fro evaluation of anemia and he underwent Bone Marrow biopsy CT of his chest- mediastinal nodes and a satellite lesion in the base the patient was scheduled for a Heart Cath at 1430 on 10/28/16 Patient had originally presented to [place] after suffering 4 seizures in a row. His Troponins were found to be elevated and he was diagnosed with an NSTEMI. He also had some GI bleeding which has resolved. he did have a thoracentesis, 410 mL fluid removed and sent to path, which helped him feel much better ROS General: Admits: Denies: Fever, Chills, Poor Appetite, Abnormal Weight Loss, Generalized Body Aches Eyes: Admits: Denies: Blurry Vision, Double Vision, Yellow Eyes HENT: Admits: Denies: Ear Pain/Pressure, Runny/Stuffy Nose, Sore Throat Cardiovascular: Admits: Denies: Chest Pain, Palpitations, Leg Swelling Pulmonary: Admits: Shortness of Breathwhen he walks a short distance "1 1/2 years ago I regularly walked 10 miles for exercise. Now, I can hardly walk across the room." Denies: Cough, Wheeze Gastrointestinal: Admits: Abdominal Discomfort, mild. On a previous admission , he ended up with C. dif and was hospitalized for 9 months while it was being treated. Hopes that does not happen again. Mentions that the discomfort is when he is having his BM. Lately, there has been a plug of stool, and once that passes, there is watery diarrhea behind it.No blood or mucus appreciated. Denies: Nausea, Vomiting, Diarrhea, Blood in Stool, Black-Colored Stool Urogenital: Admits: Denies: Burning with Urination, Urinary Frequency Musculoskeletal: Admits: Denies: Joint Pain, Joint Swelling, Muscle Pain Neurological: Admits: Denies: Headache, Dizziness, Numbness, Tingling, Shooting Pains Integumentary: Admits: Denies: Rash, Itch, Yellow Skin Endocrine: Admits: Denies: Excessive Thirst, Excessive Hunger, Intolerant to Cold , Intolerant to Heat Psychiatric: Admits: Denies: Anxiety, Depression PMH/Family/Social Past Medical History Medical History: diabetes Social History Smoking Status: Never smoker Exam/Review of Systems Vital Signs Vitals Vital Signs Date Time Temp Pulse Resp B/P Pulse Ox O2 Delivery O2 Flow Rate FiO2 11/14/16 20:35 110 11/14/16 16:19 98.6 19 114/86 91 11/14/16 08:15 Nasal Cannula 11/11/16 14:57 21 Intake and Output 11/13/16 11/13/16 11/14/16 15:00 23:00 07:00 Intake Total 600 ml 300 ml 900 ml Balance 600 ml 300 ml 900 ml Exam Exam Exam General: Sleeping, easily roused, alert, oriented and pleasant, in no acute distress Eyes: Sclera White, EOMI HENT: Normocephalic/Atraumatic, External Ears/Nose Normal, Moist Mucus Membranes Neck: Supple, Trachea Midline Cardiovascular: Normal Rate, Normal Rhythm, Normal S1 and S2, No Murmur, No Extra Sounds Pulmonary: Clear to Auscultation Bilaterally, except decreased airflow in the bases. Normal Respiratory Effort, No Rales, Rhonchi or Wheezes Gastrointestinal: Normoactive Bowel Sounds, Soft, Non-Tender/Non-Distended, No Hepatosplenomegaly Appreciated, No Pulsatile Masses Urogenital: Deferred Musculoskeletal: Normal Muscle Bulk and Tone Neurological: CN II - XII Grossly Intact, Non-Focal, Speech Normal Integumentary: Normal Moisture and Temperature, Good Turgor, No Jaundice, No Rash Lymphatic: No Cervical Lymphadenopathy Psychiatric: Appropriate Mood and Affect, Good Eye Contact Results Result Diagram: 11/14/16 0610 11/14/16 0610 Results 24 hrs Laboratory Tests Test 11/14/16 06:10 11/14/16 08:18 11/14/16 13:09 11/14/16 18:47 White Blood Count 7.0 Red Blood Count 3.62 L Hemoglobin 9.0 L Hematocrit 30.1 L Mean Corpuscular Volume 83.1 Mean Corpuscular Hemoglobin 24.9 L Mean Corpuscular Hemoglobin Concent 29.9 L Red Cell Distribution Width 15.9 H Platelet Count 226 Mean Platelet Volume 9.1 Neutrophils % 83.0 H Lymphocytes % 7.6 L Monocytes % 5.9 Eosinophils % 3.1 Basophils % 0.1 Nucleated Red Blood Cells % 0.0 Neutrophils # 5.8 Lymphocytes # 0.5 L Monocytes # 0.4 Eosinophils # 0.2 Basophils # 0.0 Nucleated Red Blood Cells # 0.0 Prothrombin Time 17.0 H Prothrombin Time Ratio 1.3 INR International Normalized Ratio 1.38 Activated Partial Thromboplast Time 51.1 H Sodium Level 134 L Potassium Level 4.0 Chloride Level 99 Carbon Dioxide Level 29 Anion Gap 10 Blood Urea Nitrogen 26 H Creatinine 1.07 Glucose Level 107 Calcium Level 7.7 L Magnesium Level 2.1 Total Bilirubin 0.6 Direct Bilirubin 0.00 Indirect Bilirubin 0.6 Aspartate Amino Transf (AST/SGOT) 32 Alanine Aminotransferase (ALT/SGPT) 30 Alkaline Phosphatase 461 #H Total Protein 5.6 L Albumin 2.7 L Bedside Glucose 145 124 143 Test 11/14/16 20:27 Bedside Glucose 138 Medications Medications Current Medications Lorazepam (Ativan) 0.5 mg Q6H PRN IV ANXIETY; Start 10/28/16 at 04:00 Acetaminophen (Tylenol Supp) 650 mg Q6H PRN [place] PAIN LEVEL 1-3 OR FEVER Last administered on 11/12/16 01:58; Admin Dose 650 MG; Start 10/28/16 at 04:00 Aspirin (Aspirin) 81 mg DAILY PO Last administered on 11/14/16 09:17; Admin Dose 81 MG; Start 10/28/16 at 09:00 Atorvastatin Calcium (Lipitor) 40 mg HS PO Last administered on 11/14/16 20:21 ; Admin Dose 40 MG; Start 10/28/16 at 21:00 Acetaminophen/ Hydrocodone Bitart ([place]ry (5/325)) 1 tab Q4H PRN PO MODERATE PAIN LEVEL 4-6 Last administered on 11/10/16 18:44; Admin Dose 1 TAB; Start at 00:00 Acetaminophen/ Hydrocodone Bitart ([place]ry (5/325)) 2 tab Q4H PRN PO SEVERE PAIN LEVEL 7-10 Last administered on 11/13/16 09:01; Admin Dose 2 TAB; Start at 00:00 Lactobacillus Acidoph/Bulgaricus (Floranex) 1 tab BID PO Last administered on 20:21; Admin Dose 1 TAB; Start 10/30/16 at 13:00 Mupirocin (Bactroban) 1 applic BID TOP Last administered on 11/14/16 20:20; Admin Dose 1 APPLIC; Start 10/31/16 at 09:00; Stop 11/15/16 at 23:00 Lamotrigine (Lamictal) 200 mg BID PO Last administered on 11/14/16 20:21; Admin Dose 200 MG; Start 10/31/16 at 14:30 Miscellaneous Information 1 ea NOTE XX ; Start 10/31/16 at 13:30 Glucose (Glutose) 15 gm Q15M PRN PO DECREASED GLUCOSE; Start 10/31/16 at 13:30 Glucose (Glutose) 22.5 gm Q15M PRN PO DECREASED GLUCOSE; Start 10/31/16 at 13: 30 Dextrose (D50w Syringe) 25 ml Q15M PRN IV DECREASED GLUCOSE; Start 10/31/16 at 13:30 Dextrose (D50w Syringe) 50 ml Q15M PRN IV DECREASED GLUCOSE; Start 10/31/16 at 13:30 Glucagon (Glucagen) 1 mg Q15M PRN IM DECREASED GLUCOSE; Start 10/31/16 at 13:30 Glucose 15 gm 15 gm Q15M PRN BUCCAL DECREASED GLUCOSE; Start 10/31/16 at 13:30 Ondansetron HCl/ Sodium Chloride (Zofran Inj/NS) 54 ml @ 216 mls/hr Q6H PRN IV NAUSEA AND/OR VOMITING Last administered on 11/08/16 22:17; Admin Dose 216 MLS/HR; Start 11/02/16 at 23:30 Insulin Glargine (Lantus) 15 unit DAILY@20 SC Last administered on 11/13/16 20: 34; Admin Dose 15 UNIT; Start 11/05/16 at 20:00 Docusate Sodium (Colace) 100 mg BID PO Last administered on 11/14/16 20:21; Admin Dose 100 MG; Start 11/08/16 at 21:00 Silver Sulfadiazine (Thermazene 1% 25 Gm) 1 applic BID TOP Last administered on 11/14/16 20:20; Admin Dose 1 APPLIC; Start 11/09/16 at 14:30 Famotidine (Pepcid) 20 mg BID PO Last administered on 11/14/16 20:21; Admin Dose 20 MG; Start 11/09/16 at 21:00 Ondansetron HCl (Zofran Inj) 4 mg Q6H PRN IV nausea Last administered on 20:21; Admin Dose 4 MG; Start 11/10/16 at 03:00 Polyethylene Glycol 17 gm 17 gm DAILY PO Last administered on 11/13/16 09:00; Admin Dose 17 GM; Start 11/12/16 at 09:00 Caspofungin/ Sodium Chloride (Cancidas/NS) 250 ml @ 250 mls/hr Q24H IVPB Last administered on 11/14/16 18:37; Admin Dose 250 MLS/HR; Start 11/13/16 at 18:00 Vancomycin HCl (Vancomycin Oral Syringe) 125 mg Q6 PO Last administered on 18:38; Admin Dose 125 MG; Start 11/12/16 at 18:00 Metoclopramide HCl (Reglan) 10 mg Q6 IV Last administered on 11/14/16 18:37; Admin Dose 10 MG; Start 11/13/16 at 18:00 Metoprolol Tartrate (Lopressor) 50 mg Q8H PO Last administered on 11/14/16 18: 39; Admin Dose 50 MG; Start 11/14/16 at 17:00 Amiodarone HCl (Cordarone) 400 mg BID PO Last administered on 11/14/16 20:21; Admin Dose 400 MG; Start 11/14/16 at 11:30 BETO PADILLA MD Nov 14, 2016 21:14
[2016-11-15] VITALS (7 sets, daily range): BP systolic 101–127; BP diastolic 71–80; PULSE 100–135; RESP 18
--- NOTE | 2016-11-15 05:41 | RADRPT ---
PROCEDURE: XR Chest. CLINICAL INDICATION: Pneumothorax, follow-up TECHNIQUE: An AP view of the chest was obtained. COMPARISON: Chest x-ray dated 11/12/2016 FINDINGS: There is prominence of the interstitial markings. There is elevation of the left lower lobe. There are small bilateral pleural effusions. No pneumothorax is seen. The cardiomediastinal silhouette is mildly enlarged . Calcifications are seen within the aortic arch. There are post cardiac surgery changes with sternotomy wires. The osseous structures demonstrate senescent changes. IMPRESSION: 1. Findings suggesting interstitial edema, mildly improved when compared to the prior examination. 2. Small bilateral pleural effusions with left basilar atelectasis versus pneumonia, also mildly im proved. 3. Mild cardiomegaly and aortic atherosclerosis. RPTAT: HH .Halina Kincaid MD, MD Date Time Electronically viewed and signed by .Halian Kincaid MD, on 11/15/2016 05:41 .G/
[2016-11-15] MEDS: METOCLOPRAMIDE 10 MG INJ IV SCH (06:29)
[2016-11-15] MEDS: VANCOMYCIN HCL 250 MG/5ML POSYG PO SCH ×4 (06:29→23:59)
--- NOTE | 2016-11-15 06:50 | RADRPT ---
PROCEDURE: CT Abdomen and pelvis without contrast. CLINICAL INDICATION: hematuria / intractable nausea TECHNIQUE: CT scan of the abdomen and pelvis with contrast was performed on a multidetector high-r esolution CT scan. . Coronal and sagittal reformatted images were obtained from the axial source i mages. Standard CT scan of the abdomen pelvis without contrast protocols were performed. The total exam CTDI equals 18.72 mGy and the total exam DLP equals 1000 151.12 mGy-cm. One or more of the following dose reduction techniques were used: - Automated exposure control. - Adjustment of the mA and/or kV according to patient size. Use of iterative reconstruction technique. COMPARISON: Renal ultrasound 11/11/2016. FINDINGS: The patient status post thoracotomy. There is retrosternal gas which may relate to surgical changes and recommend clinical correlation. The left hemidiaphragm is elevated. If there are bilateral pl eural effusions larger on the left. There is bibasilar atelectasis. Additional infiltrate at the l eft base cannot be excluded. The heart is within normal limits in size. There is coronary artery d isease present. There is a small hiatal hernia present. The spleen is moderately enlarged without focal splenic lesions. Liver normal in size without focal lesions. The kidneys are normal in size without evidence of calcified renal calculi or hydronephro sis bilaterally. No evidence of intra renal masses bilaterally. The pancreas and adrenal glands ar e normal size configuration without focal lesions. The gallbladder is partially contracted and ther e is mild gallbladder wall thickening which may relate to hyperproteinemia or acalculus cholecystiti s. There is no pericholecystic fluid collections and there is no evidence biliary ductal dilation. There is diffuse circumferential urinary ball wall thickening of uncertain etiology however rule ou t cystitis. No evidence of urinary bladder calcified calculi or masses. There are prostatic calcif ications of the prostate gland appears within normal limits in size. There is mild abdominal and pelvic ascites. There is no localized abdominal fluid collection to sug gest abscess. No intra-abdominal free air. Other than the small hiatal hernia the stomach appears unremarkable. The small bowel and large bowel appear unremarkable. There is mild atherosclerosis that that there is atherosclerotic vascular disease of the aorta but n o evidence of aneurysm. There is an umbilical fat-containing hernia but no herniated bowel or stran gulation. Bilateral inguinal fat-containing hernia is without herniated bowel or strangulation. The re is bilateral L5 spondylolysis defects. There is grade 1 retrolithesis of L4 on L5 vertebral bodi es and grade 1 anterior spondylolisthesis of L5 on S1 vertebral bodies. There are degenerative jeong ges lower thoracic and lumbar spine. There are no acute osseous findings or osteoblastic/osteolytic lesion. IMPRESSION: 1. Status post thoracotomy with retrosternal gas that may represent postsurgical changes and recomme nd clinical correlation. 2. Bilateral pleural effusions and basilar consolidations may all be due to atelectasis however lef t basilar infiltrate should be excluded. 3. Abdominal ascites but no intra-abdominal free air or abscesses. 4. Diffuse circumferential urinary bladder wall thickening and rule out cystitis. 5. No evidence of calcified urinary calculi or obstructive uropathy. 6. Gallbladder wall thickening may be secondary to hypoproteinemia or acalculus cholecystitis. No biliary ductal dilation. 7. Small hiatal hernia. 8. Bilateral fat containing inguinal and umbilical fat-containing hernia is without herniated bowel or evidence of strangulation. RPTAT:AAJJ Physician Yany Date Time Electronically viewed and signed by Physician Yany on 11/15/2016 06:49 BM/
[2016-11-15 07:11] LABS: ADD SCAN DIFF NO
[2016-11-15 07:15] LABS: BASOPHILS % 0.2 % (0.0-2.0); EOSINOPHILS # 0.2 10^3/ul (0.0-0.5); EOSINOPHILS % 2.7 % (0.0-7.0); HEMATOCRIT 29.1 % (42.0-52.0); HEMOGLOBIN 8.6 g/dl (14.0-18.0); LYMPHOCYTES # 0.8 10^3/ul (0.8-2.9); LYMPHOCYTES % 12.3 % (15.0-51.0); MEAN CORPUSCULAR HEMOGLOBIN 24.6 pg (29.0-33.0); MEAN CORPUSCULAR HGB CONC 29.6 g/dl (32.0-37.0); MEAN CORPUSCULAR VOLUME 83.4 fl (82.0-101.0); MEAN PLATELET VOLUME 9.1 fl (7.4-10.4); MONOCYTE # 0.5 10^3/ul (0.3-0.9); MONOCYTES % 7.8 % (0.0-11.0); NEUTROPHIL # 4.8 10^3/ul (1.6-7.5); NEUTROPHILS % 76.7 % (39.0-77.0); PLATELET COUNT 235 10^3/UL (140-415); RED BLOOD COUNT 3.49 10^6/ul (4.70-6.10); WHITE BLOOD COUNT 6.3 10^3/ul (4.8-10.8)
[2016-11-15 07:27] LABS: ALBUMIN 2.7 g/dl (3.3-4.9)
[2016-11-15 07:28] LABS: POTASSIUM 3.7 mmol/L (3.5-5.1)
[2016-11-15 07:30] LABS: BILIRUBIN,INDIRECT 0.6 mg/dl (0-1.1); BILIRUBIN,TOTAL 0.6 mg/dl (0.2-1.3); CREATININE 0.85 mg/dl (0.61-1.24); TOTAL PROTEIN 5.9 g/dl (6.1-8.1)
[2016-11-15 07:31] LABS: CALCIUM 7.8 mg/dl (8.4-10.2); MAGNESIUM 2.1 mg/dl (1.7-2.5)
[2016-11-15] MEDS: INSULIN ASPART [NOVOLOG] 3 ML PEN SC SCH ×7 (07:55→21:00)
[2016-11-15] MEDS: LACTOBACILLUS CHEW TAB PO SCH ×2 (08:09→21:00)
[2016-11-15] MEDS: DOCUSATE SODIUM 100 MG CAP PO SCH ×2 (08:09→21:29)
[2016-11-15] MEDS: ASPIRIN 81 MG TAB PO SCH (08:09)
[2016-11-15] MEDS: LAMOTRIGINE 100 MG TAB PO SCH ×2 (08:09→21:29)
[2016-11-15] MEDS: POLYETHYLENE GLYCOL 17 GM PACKET PO SCH (08:09)
[2016-11-15] MEDS: AMIODARONE 200 MG TAB PO SCH ×2 (08:09→21:29)
[2016-11-15] MEDS: FAMOTIDINE 20 MG TAB PO SCH ×2 (08:09→21:29)
[2016-11-15] MEDS: MUPIROCIN 2% 22 GM OINT TOP SCH ×2 (08:10→21:34)
[2016-11-15] MEDS: SILVER SULFADIAZINE 1% 25 GM CR TOP SCH ×2 (08:10→21:29)
[2016-11-15] MEDS: METOPROLOL 50 MG TAB PO SCH ×2 (08:10)
--- NOTE | 2016-11-15 11:14 | PN ---
Date/Time of Note Date/Time of Note DATE: 11/15/16 TIME: 11:13 Assessment/Plan VTE Prophylaxis VTE Prophylaxis Intervention: SCD's VTE Contraindication Reason: bleeding Lines/Catheters IV Catheter Type (from Nrsg): Peripheral IV Urinary Cath still in place: No Assessment/Plan Chief Complaint/Hosp Course Assessment/Plan 61 yo M who initially presented to [facility] with seizures and ended up having CABG (October 2016) now managed for: 1. Post OP Sepsis 2/2 Candiduria and Fungemia - Continue IV abx and antifungals (caspofungin) per ID, per discussion will eventually switch to PO Vfend x 14 days needed 2. Recurrent L sided Pleural effusion and possible infiltrate / CHF versus possible pneumonia - improving on last CXR 1 day ago. - monitor, if worsens, consider possible thoracentesis for L sided effusion - Continue low dose lasix 3. New onset Afib vs flutter still in RVR 110-120's, asymptomatic presently - now on amiodarone 400mg PO BID, f/u CV rec's - continue metoprolol to 50mg q8h -holding cozaar to allow room for BB titration -per CV, if HR cannot be controlled may consider cardioversion (only if anticoagulation candidate for at least 1 month) - presently cardiology managing amiodarone and BB for Aflutter/ not a candidate for anticoagulation 2/2 hematuria? 4. Hematuria ?cause : funguria versus occult malignancy? - F/u urine cytology reports for hematuria / urology following / needs cystoscopy to eval hematuria but is not clinically stable for surgery / PSA pending 5. H/o of upper GI bleeding with esophagitis on EGD, stable - Monitor hgb / may require transfusion 6. Severe iron deficiency Microcytic anemia 2/2 chronic GI bleed s/p transfusion with stable hgb - Iron replacement IV x 5days ongoing 7. Chronic Seizure disorder. stable on lamictal 8. Peripheral vascular disease status post TMA R foot amputation 9. Diabetes mellitus type 2 : well controlled on Lantus and Premeal insulin 10. Post Op Pneumothorax: resolved; s/p Chest tube placement 11/09/16 and removed 11/13/16 11. Coronary artery disease, NSTEMI, s/p CABG on 11/02/2016 12. Prev Heavy tobacco and alcohol use 13. Persistent nausea and constipation: no obstruction on KUB PLAN: - SNF placement * Continue post op mgt and supportive care * Prognosis is guarded / patient has multiple critical issues PPx- SCDs/ PPI Problems: Subjective 24 Hr Interval Summary Free Text/Dictation Pt states he had large BM. Exam/Review of Systems Vital Signs Vitals Vital Signs Date Time Temp Pulse Resp B/P Pulse Ox O2 Delivery O2 Flow Rate FiO2 11/15/16 08:00 98.3 118 18 126/74 96 Room Air 11/11/16 14:57 21 Intake and Output 11/14/16 11/14/16 11/15/16 15:00 23:00 07:00 Intake Total 750 ml 300 ml Balance 750 ml 300 ml Exam Constitutional: alert, sitting on edge of bed, oriented Head: normocephalic Eyes: PERRL ENMT: mucosa pink and moist Neck: supple Respiratory: clear to auscultation, less diminished breath sounds, No crackles/rales, No wheezing Cardiovascular: regular rate and rhythm, No murmurs/extra sounds Gastrointestinal: bowel sounds, non-tender, soft, No ascites Extremities: other (s/p healed transmetatarsal amputation R foot), Neurological: no focal deficits Results Result Diagram: 11/15/1662111/15/16621 Results 24 hrs Laboratory Tests Test 11/14/16 13:09 11/14/16 18:47 11/14/16 20:27 11/15/16 06:22 Bedside Glucose 124 143 138 White Blood Count 6.3 Red Blood Count 3.49 L Hemoglobin 8.6 L Hematocrit 29.1 L Mean Corpuscular Volume 83.4 Mean Corpuscular Hemoglobin 24.6 L Mean Corpuscular Hemoglobin Concent 29.6 L Red Cell Distribution Width 16.0 H Platelet Count 235 Mean Platelet Volume 9.1 Neutrophils % 76.7 Lymphocytes % 12.3 L Monocytes % 7.8 Eosinophils % 2.7 Basophils % 0.2 Nucleated Red Blood Cells % 0.0 Neutrophils # 4.8 Lymphocytes # 0.8 Monocytes # 0.5 Eosinophils # 0.2 Basophils # 0.0 Nucleated Red Blood Cells # 0.0 Sodium Level 134 L Potassium Level 3.7 Chloride Level 96 L Carbon Dioxide Level 29 Anion Gap 13 Blood Urea Nitrogen 18 Creatinine 0.85 Glucose Level 121 Calcium Level 7.8 L Magnesium Level 2.1 Total Bilirubin 0.6 Direct Bilirubin 0.00 Indirect Bilirubin 0.6 Aspartate Amino Transf (AST/SGOT) 36 Alanine Aminotransferase (ALT/SGPT) 31 Alkaline Phosphatase 596 H Total Protein 5.9 L Albumin 2.7 L Test 11/15/16 08:00 Bedside Glucose 122 Medications Medications Current Medications Lorazepam (Ativan) 0.5 mg Q6H PRN IV ANXIETY; Start 10/28/16 at 04:00 Acetaminophen (Tylenol Supp) 650 mg Q6H PRN [place] PAIN LEVEL 1-3 OR FEVER Last administered on 11/12/16 01:58; Admin Dose 650 MG; Start 10/28/16 at 04:00 Aspirin (Aspirin) 81 mg DAILY PO Last administered on 11/15/16 08:09; Admin Dose 81 MG; Start 10/28/16 at 09:00 Atorvastatin Calcium (Lipitor) 40 mg HS PO Last administered on 11/14/16 20:21 ; Admin Dose 40 MG; Start 10/28/16 at 21:00 Acetaminophen/ Hydrocodone Bitart ([place] (5/325)) 1 tab Q4H PRN PO MODERATE PAIN LEVEL 4-6 Last administered on 11/10/16 18:44; Admin Dose 1 TAB; Start at 00:00 Acetaminophen/ Hydrocodone Bitart ([place] (5/325)) 2 tab Q4H PRN PO SEVERE PAIN LEVEL 7-10 Last administered on 11/13/16 09:01; Admin Dose 2 TAB; Start at 00:00 Lactobacillus Acidoph/Bulgaricus (Floranex) 1 tab BID PO Last administered on 08:09; Admin Dose 1 TAB; Start 10/30/16 at 13:00 Mupirocin (Bactroban) 1 applic BID TOP Last administered on 11/15/16 08:10; Admin Dose 1 APPLIC; Start 10/31/16 at 09:00; Stop 11/15/16 at 23:00 Lamotrigine (Lamictal) 200 mg BID PO Last administered on 11/15/16 08:09; Admin Dose 200 MG; Start 10/31/16 at 14:30 Miscellaneous Information 1 ea NOTE XX ; Start 10/31/16 at 13:30 Glucose (Glutose) 15 gm Q15M PRN PO DECREASED GLUCOSE; Start 10/31/16 at 13:30 Glucose (Glutose) 22.5 gm Q15M PRN PO DECREASED GLUCOSE; Start 10/31/16 at 13: 30 Dextrose (D50w Syringe) 25 ml Q15M PRN IV DECREASED GLUCOSE; Start 10/31/16 at 13:30 Dextrose (D50w Syringe) 50 ml Q15M PRN IV DECREASED GLUCOSE; Start 10/31/16 at 13:30 Glucagon (Glucagen) 1 mg Q15M PRN IM DECREASED GLUCOSE; Start 10/31/16 at 13:30 Glucose 15 gm 15 gm Q15M PRN BUCCAL DECREASED GLUCOSE; Start 10/31/16 at 13:30 Ondansetron HCl/ Sodium Chloride (Zofran Inj/NS) 54 ml @ 216 mls/hr Q6H PRN IV NAUSEA AND/OR VOMITING Last administered on 11/08/16 22:17; Admin Dose 216 MLS/HR; Start 11/02/16 at 23:30 Insulin Glargine (Lantus) 15 unit DAILY@20 SC Last administered on 11/13/16 20: 34; Admin Dose 15 UNIT; Start 11/05/16 at 20:00 Docusate Sodium (Colace) 100 mg BID PO Last administered on 11/15/16 08:09; Admin Dose 100 MG; Start 11/08/16 at 21:00 Silver Sulfadiazine (Thermazene 1% 25 Gm) 1 applic BID TOP Last administered on 11/15/16 08:10; Admin Dose 1 APPLIC; Start 11/09/16 at 14:30 Famotidine (Pepcid) 20 mg BID PO Last administered on 11/15/16 08:09; Admin Dose 20 MG; Start 11/09/16 at 21:00 Ondansetron HCl (Zofran Inj) 4 mg Q6H PRN IV nausea Last administered on 20:21; Admin Dose 4 MG; Start 11/10/16 at 03:00 Polyethylene Glycol 17 gm 17 gm DAILY PO Last administered on 11/15/16 08:09; Admin Dose 17 GM; Start 11/12/16 at 09:00 Caspofungin/ Sodium Chloride (Cancidas/NS) 250 ml @ 250 mls/hr Q24H IVPB Last administered on 4/9/17at 18:37; Admin Dose 250 MLS/HR; Start 11/13/16 at 18:00 Vancomycin HCl (Vancomycin Oral Syringe) 125 mg Q6 PO Last administered on 11/15 06:29; Admin Dose 125 MG; Start 11/12/16 at 18:00 Metoclopramide HCl (Reglan) 10 mg Q6 IV Last administered on 11/15/16 06:29; Admin Dose 10 MG; Start 11/13/16 at 18:00 Metoprolol Tartrate (Lopressor) 50 mg Q8H PO Last administered on 11/15/16 08: 10; Admin Dose 50 MG; Start 11/14/16 at 17:00 Amiodarone HCl (Cordarone) 400 mg BID PO Last administered on 11/15/16 08:09; Admin Dose 400 MG; Start 11/14/16 at 11:[address] A/P 11/14/16: IMPRESSION: 1. Status post thoracotomy with retrosternal gas that may represent postsurgical changes and recommend clinical correlation. 2. Bilateral pleural effusions and basilar consolidations may all be due to atelectasis however left basilar infiltrate should be excluded. 3. Abdominal ascites but no intra-abdominal free air or abscesses. 4. Diffuse circumferential urinary bladder wall thickening and rule out cystitis. 5. No evidence of calcified urinary calculi or obstructive uropathy. 6. Gallbladder wall thickening may be secondary to hypoproteinemia or acalculus cholecystitis. No biliary ductal dilation. 7. Small hiatal hernia. 8. Bilateral fat containing inguinal and umbilical fat-containing hernia is without herniated bowel or evidence of strangulation. MELODY QUINTERO Nov 15, 2016 11:14
[2016-11-15] MEDS ORDERED: METOCLOPRAMIDE 10 MG INJ IV PRN (12:00)
--- NOTE | 2016-11-15 13:59 | CONS ---
Date/Time of Note Date/Time of Note DATE: 11/15/16 TIME: 13:54 Assessment/Plan Assessment/Plan Chief Complaint/Hosp Course Atrial flutter/fib: converted to atrial flutter 11/13. HR ~100-110s. Not uncommon post cardiac surgery. Not an anticoagulation candidate due to hematuria Status post NSTEMI Coronary artery disease - status post CABG 11/02/2016 (CORTEZ-prox LAD-distal LAD, SVG-OM1, SVG-OM2-PDA, SVG-OM3) Acute on chronic diastolic heart failure - diuresed and thoracentesis at [facility]. Significant edema but improving Mild to moderate right apical pneumothorax - status post pigtail catheter 2016, removed 11/13 Fungemia/fungal UTI: on therapy. Fevers resolved Healthcare-associated pneumonia - per infectious disease Seizure disorder - initial presentation was seizure Diabetes mellitus Anemia - bone marrow biopsy reported to be negative Gross hematuria - per urology, improved Esophagitis on EGD Status post right transmetatarsal amputation -amio 400mg PO BID (possible d/c tomorrow as ineffective at rhythm control) -increase to metoprolol 75 mg q8h -lasix 20mg PO daily -hold cozaar to allow room for BB titration -if HR cannot be controlled may consider cardioversion (only if anticoagulation candidate for at least 1 month) -continue aspirin as tolerated, monitor hematuria -continue atorvastatin Problems: Consultation Date/Type/Reason Admit Date/Time Oct 27, 2016 at 22:32 Type of Consultation: Cardiology Referring Provider: DANA ESCUDERO DO 24 HR Interval Summary Free Text/Dictation Hr still ~100-110, aflutter. No complaints overall. Exam/Review of Systems Vital Signs Vitals Vital Signs Date Time Temp Pulse Resp B/P Pulse Ox O2 Delivery O2 Flow Rate FiO2 11/15/16 12:00 135 11/15/16 12:00 98.7 18 127/80 95 Room Air 11/11/16 14:57 21 Intake and Output 11/14/16 11/14/16 11/15/16 15:00 23:00 07:00 Intake Total 750 ml 300 ml Balance 750 ml 300 ml Exam Constitutional: alert, oriented Head: atraumatic, normocephalic Neck: jvd (7cm) Respiratory: diminished breath sounds (left), No clear to auscultation Cardiovascular: edema (2+), No regular rate and rhythm (IRIR) Neurological: nl mental status, nl speech Results Result Diagram: 11/15/1662111/15/16621 Results 24 hrs Laboratory Tests Test 11/14/16 18:47 11/14/16 20:27 11/15/16 06:22 11/15/16 08:00 Bedside Glucose 143 138 122 White Blood Count 6.3 Red Blood Count 3.49 L Hemoglobin 8.6 L Hematocrit 29.1 L Mean Corpuscular Volume 83.4 Mean Corpuscular Hemoglobin 24.6 L Mean Corpuscular Hemoglobin Concent 29.6 L Red Cell Distribution Width 16.0 H Platelet Count 235 Mean Platelet Volume 9.1 Neutrophils % 76.7 Lymphocytes % 12.3 L Monocytes % 7.8 Eosinophils % 2.7 Basophils % 0.2 Nucleated Red Blood Cells % 0.0 Neutrophils # 4.8 Lymphocytes # 0.8 Monocytes # 0.5 Eosinophils # 0.2 Basophils # 0.0 Nucleated Red Blood Cells # 0.0 Sodium Level 134 L Potassium Level 3.7 Chloride Level 96 L Carbon Dioxide Level 29 Anion Gap 13 Blood Urea Nitrogen 18 Creatinine 0.85 Glucose Level 121 Calcium Level 7.8 L Magnesium Level 2.1 Total Bilirubin 0.6 Direct Bilirubin 0.00 Indirect Bilirubin 0.6 Aspartate Amino Transf (AST/SGOT) 36 Alanine Aminotransferase (ALT/SGPT) 31 Alkaline Phosphatase 596 H Total Protein 5.9 L Albumin 2.7 L Test 11/15/16 12:21 Bedside Glucose 117 Medications Medications Current Medications Lorazepam (Ativan) 0.5 mg Q6H PRN IV ANXIETY; Start 10/28/16 at 04:00 Acetaminophen (Tylenol Supp) 650 mg Q6H PRN [place] PAIN LEVEL 1-3 OR FEVER Last administered on 11/12/16 01:58; Admin Dose 650 MG; Start 10/28/16 at 04:00 Aspirin (Aspirin) 81 mg DAILY PO Last administered on 11/15/16 08:09; Admin Dose 81 MG; Start 10/28/16 at 09:00 Atorvastatin Calcium (Lipitor) 40 mg HS PO Last administered on 11/14/16 20:21 ; Admin Dose 40 MG; Start 10/28/16 at 21:00 Acetaminophen/ Hydrocodone Bitart ([place] (5/325)) 1 tab Q4H PRN PO MODERATE PAIN LEVEL 4-6 Last administered on 11/10/16 18:44; Admin Dose 1 TAB; Start at 00:00 Acetaminophen/ Hydrocodone Bitart ([place] (5/325)) 2 tab Q4H PRN PO SEVERE PAIN LEVEL 7-10 Last administered on 11/13/16 09:01; Admin Dose 2 TAB; Start at 00:00 Lactobacillus Acidoph/Bulgaricus (Floranex) 1 tab BID PO Last administered on 08:09; Admin Dose 1 TAB; Start 10/30/16 at 13:00 Mupirocin (Bactroban) 1 applic BID TOP Last administered on 11/15/16 08:10; Admin Dose 1 APPLIC; Start 10/31/16 at 09:00; Stop 11/15/16 at 23:00 Lamotrigine (Lamictal) 200 mg BID PO Last administered on 11/15/16 08:09; Admin Dose 200 MG; Start 10/31/16 at 14:30 Miscellaneous Information 1 ea NOTE XX ; Start 10/31/16 at 13:30 Glucose (Glutose) 15 gm Q15M PRN PO DECREASED GLUCOSE; Start 10/31/16 at 13:30 Glucose (Glutose) 22.5 gm Q15M PRN PO DECREASED GLUCOSE; Start 10/31/16 at 13: 30 Dextrose (D50w Syringe) 25 ml Q15M PRN IV DECREASED GLUCOSE; Start 10/31/16 at 13:30 Dextrose (D50w Syringe) 50 ml Q15M PRN IV DECREASED GLUCOSE; Start 10/31/16 at 13:30 Glucagon (Glucagen) 1 mg Q15M PRN IM DECREASED GLUCOSE; Start 10/31/16 at 13:30 Glucose 15 gm 15 gm Q15M PRN BUCCAL DECREASED GLUCOSE; Start 10/31/16 at 13:30 Ondansetron HCl/ Sodium Chloride (Zofran Inj/NS) 54 ml @ 216 mls/hr Q6H PRN IV NAUSEA AND/OR VOMITING Last administered on 11/08/16 22:17; Admin Dose 216 MLS/HR; Start 11/02/16 at 23:30 Insulin Glargine (Lantus) 15 unit DAILY@20 SC Last administered on 11/13/16 20: 34; Admin Dose 15 UNIT; Start 11/05/16 at 20:00 Docusate Sodium (Colace) 100 mg BID PO Last administered on 11/15/16 08:09; Admin Dose 100 MG; Start 11/08/16 at 21:00 Silver Sulfadiazine (Thermazene 1% 25 Gm) 1 applic BID TOP Last administered on 11/15/16 08:10; Admin Dose 1 APPLIC; Start 11/09/16 at 14:30 Famotidine (Pepcid) 20 mg BID PO Last administered on 11/15/16 08:09; Admin Dose 20 MG; Start 11/09/16 at 21:00 Ondansetron HCl (Zofran Inj) 4 mg Q6H PRN IV nausea Last administered on 20:21; Admin Dose 4 MG; Start 11/10/16 at 03:00 Polyethylene Glycol 17 gm 17 gm DAILY PO Last administered on 11/15/16 08:09; Admin Dose 17 GM; Start 11/12/16 at 09:00 Caspofungin/ Sodium Chloride (Cancidas/NS) 250 ml @ 250 mls/hr Q24H IVPB Last administered on 11/14/16 18:37; Admin Dose 250 MLS/HR; Start 11/13/16 at 18:00 Vancomycin HCl (Vancomycin Oral Syringe) 125 mg Q6 PO Last administered on 11/15 12:27; Admin Dose 125 MG; Start 11/12/16 at 18:00 Metoprolol Tartrate (Lopressor) 50 mg Q8H PO Last administered on 11/15/16 08: 10; Admin Dose 50 MG; Start 11/14/16 at 17:00 Amiodarone HCl (Cordarone) 400 mg BID PO Last administered on 11/15/16 08:09; Admin Dose 400 MG; Start 11/14/16 at 11:30 Metoclopramide HCl (Reglan) 10 mg Q6H PRN IV NAUSEA; Start 11/15/16 at 12:00 TOMMIE PERALTA Nov 15, 2016 13:59
[2016-11-15] MEDS: FUROSEMIDE 20 MG TAB PO SCH (14:20)
--- NOTE | 2016-11-15 16:25 | CONS ---
Date/Time of Note Date/Time of Note DATE: 11/15/16 TIME: 16:25 Assessment/Plan Assessment/Plan Chief Complaint/Hosp Course Anemia S/P EGD ([facility]) Esophagitis POST BMBX- AT [facility] FINAL PATH - P MONITOR BLOOD COUNT CLOSELY NSTEMI Multivessel CAD History of seizure History of alcoholism History of C difficile colitis Diabetes mellitus Problems: Consultation Date/Type/Reason Admit Date/Time Oct 27, 2016 at 22:32 Initial Consult Date 10/28/16 Type of Consultation: [facility] Referring Provider: DANA ESCUDERO DO 24 HR Interval Summary Free Text/Dictation NO ACUTE EVENTS STABLE OVER NT Exam/Review of Systems Vital Signs Vitals Vital Signs Date Time Temp Pulse Resp B/P Pulse Ox O2 Delivery O2 Flow Rate FiO2 11/15/16 16:00 109 11/15/16 12:00 98.7 18 127/80 95 Room Air 11/11/16 14:57 21 Intake and Output 11/14/16 11/14/16 11/15/16 15:00 23:00 07:00 Intake Total 750 ml 300 ml Balance 750 ml 300 ml Exam Constitutional: alert, sitting on edge of bed, oriented Head: normocephalic Eyes: PERRL ENMT: mucosa pink and moist Neck: supple Respiratory: clear to auscultation, less diminished breath sounds, No crackles/rales, No wheezing Cardiovascular: regular rate and rhythm, No murmurs/extra sounds Gastrointestinal: bowel sounds, non-tender, soft, No ascites Extremities: other (s/p healed transmetatarsal amputation R foot), Neurological: no focal deficits Results Result Diagram: 11/15/1662111/15/1622 Results 24 hrs Laboratory Tests Test 11/14/16 18:47 11/14/16 20:27 11/15/16 06:22 11/15/16 08:00 Bedside Glucose 143 138 122 White Blood Count 6.3 Red Blood Count 3.49 L Hemoglobin 8.6 L Hematocrit 29.1 L Mean Corpuscular Volume 83.4 Mean Corpuscular Hemoglobin 24.6 L Mean Corpuscular Hemoglobin Concent 29.6 L Red Cell Distribution Width 16.0 H Platelet Count 235 Mean Platelet Volume 9.1 Neutrophils % 76.7 Lymphocytes % 12.3 L Monocytes % 7.8 Eosinophils % 2.7 Basophils % 0.2 Nucleated Red Blood Cells % 0.0 Neutrophils # 4.8 Lymphocytes # 0.8 Monocytes # 0.5 Eosinophils # 0.2 Basophils # 0.0 Nucleated Red Blood Cells # 0.0 Sodium Level 134 L Potassium Level 3.7 Chloride Level 96 L Carbon Dioxide Level 29 Anion Gap 13 Blood Urea Nitrogen 18 Creatinine 0.85 Glucose Level 121 Calcium Level 7.8 L Magnesium Level 2.1 Total Bilirubin 0.6 Direct Bilirubin 0.00 Indirect Bilirubin 0.6 Aspartate Amino Transf (AST/SGOT) 36 Alanine Aminotransferase (ALT/SGPT) 31 Alkaline Phosphatase 596 H Total Protein 5.9 L Albumin 2.7 L Test 11/15/16 12:21 Bedside Glucose 117 Medications Medications Current Medications Lorazepam (Ativan) 0.5 mg Q6H PRN IV ANXIETY; Start 10/28/16 at 04:00 Acetaminophen (Tylenol Supp) 650 mg Q6H PRN [place] PAIN LEVEL 1-3 OR FEVER Last administered on 11/12/16 01:58; Admin Dose 650 MG; Start 10/28/16 at 04:00 Aspirin (Aspirin) 81 mg DAILY PO Last administered on 11/15/16 08:09; Admin Dose 81 MG; Start 10/28/16 at 09:00 Atorvastatin Calcium (Lipitor) 40 mg HS PO Last administered on 11/14/16 20:21 ; Admin Dose 40 MG; Start 10/28/16 at 21:00 Acetaminophen/ Hydrocodone Bitart ([place] (5/325)) 1 tab Q4H PRN PO MODERATE PAIN LEVEL 4-6 Last administered on 11/10/16 18:44; Admin Dose 1 TAB; Start at 00:00 Acetaminophen/ Hydrocodone Bitart ([place] (5/325)) 2 tab Q4H PRN PO SEVERE PAIN LEVEL 7-10 Last administered on 11/13/16 09:01; Admin Dose 2 TAB; Start at 00:00 Lactobacillus Acidoph/Bulgaricus (Floranex) 1 tab BID PO Last administered on 08:09; Admin Dose 1 TAB; Start 10/30/16 at 13:00 Mupirocin (Bactroban) 1 applic BID TOP Last administered on 11/15/16 08:10; Admin Dose 1 APPLIC; Start 10/31/16 at 09:00; Stop 11/15/16 at 23:00 Lamotrigine (Lamictal) 200 mg BID PO Last administered on 11/15/16 08:09; Admin Dose 200 MG; Start 10/31/16 at 14:30 Miscellaneous Information 1 ea NOTE XX ; Start 10/31/16 at 13:30 Glucose (Glutose) 15 gm Q15M PRN PO DECREASED GLUCOSE; Start 10/31/16 at 13:30 Glucose (Glutose) 22.5 gm Q15M PRN PO DECREASED GLUCOSE; Start 10/31/16 at 13: 30 Dextrose (D50w Syringe) 25 ml Q15M PRN IV DECREASED GLUCOSE; Start 10/31/16 at 13:30 Dextrose (D50w Syringe) 50 ml Q15M PRN IV DECREASED GLUCOSE; Start 10/31/16 at 13:30 Glucagon (Glucagen) 1 mg Q15M PRN IM DECREASED GLUCOSE; Start 10/31/16 at 13:30 Glucose 15 gm 15 gm Q15M PRN BUCCAL DECREASED GLUCOSE; Start 10/31/16 at 13:30 Ondansetron HCl/ Sodium Chloride (Zofran Inj/NS) 54 ml @ 216 mls/hr Q6H PRN IV NAUSEA AND/OR VOMITING Last administered on 11/08/16 22:17; Admin Dose 216 MLS/HR; Start 11/02/16 at 23:30 Insulin Glargine (Lantus) 15 unit DAILY@20 SC Last administered on 11/13/16 20: 34; Admin Dose 15 UNIT; Start 11/05/16 at 20:00 Docusate Sodium (Colace) 100 mg BID PO Last administered on 11/15/16 08:09; Admin Dose 100 MG; Start 11/08/16 at 21:00 Silver Sulfadiazine (Thermazene 1% 25 Gm) 1 applic BID TOP Last administered on 11/15/16 08:10; Admin Dose 1 APPLIC; Start 11/09/16 at 14:30 Famotidine (Pepcid) 20 mg BID PO Last administered on 11/15/16 08:09; Admin Dose 20 MG; Start 11/09/16 at 21:00 Ondansetron HCl (Zofran Inj) 4 mg Q6H PRN IV nausea Last administered on 20:21; Admin Dose 4 MG; Start 11/10/16 at 03:00 Polyethylene Glycol 17 gm 17 gm DAILY PO Last administered on 11/15/16 08:09; Admin Dose 17 GM; Start 11/12/16 at 09:00 Caspofungin/ Sodium Chloride (Cancidas/NS) 250 ml @ 250 mls/hr Q24H IVPB Last administered on 11/14/16 18:37; Admin Dose 250 MLS/HR; Start 11/13/16 at 18:00 Vancomycin HCl (Vancomycin Oral Syringe) 125 mg Q6 PO Last administered on 11/15 12:27; Admin Dose 125 MG; Start 11/12/16 at 18:00 Amiodarone HCl (Cordarone) 400 mg BID PO Last administered on 11/15/16 08:09; Admin Dose 400 MG; Start 11/14/16 at 11:30 Metoclopramide HCl (Reglan) 10 mg Q6H PRN IV NAUSEA; Start 11/15/16 at 12:00 Metoprolol Tartrate (Lopressor) 75 mg Q8H PO ; Start 11/15/16 at 17:00 Furosemide (Lasix) 20 mg DAILY PO Last administered on 11/15/16 14:20; Admin Dose 20 MG; Start 11/15/16 at 14:00 BETO PADILLA MD Nov 15, 2016 16:25
[2016-11-15] MEDS: CASPOFUNGIN 50 MG in SOD CHLORIDE 0.9% 250 ML IVPB SCH (17:21)
[2016-11-15] MEDS: METOPROLOL 25 MG TAB PO SCH (17:24)
--- NOTE | 2016-11-15 17:50 | PN ---
DATE: 11/15/2016 SUBJECTIVE: Patient is alert, feels better, looks comfortable. He is afebrile. He is slightly tac hycardic though. WBC today 6.3, no shift, no bands. BUN 18, creatinine 0.85. MICROBIOLOGY: Blood culture growing yeast on 11/11/2016. Urine culture growing yeast, not [place] albicans. ANTIMICROBIALS: The patient is on Cancidas. PHYSICAL EXAMINATION: GENERAL: This is a well-developed elderly man who is alert, in no distress. HEENT: Head atraumatic, normocephalic. Sclerae anicteric. Buccal mucosa dry. NECK: Supple. CHEST: Rise symmetrical. Breath sounds diminished to bases. HEART: S1, S2. ABDOMEN: Soft, bowel tones present. EXTREMITIES: Bilateral lower extremities edema. ASSESSMENT: 1. Resolving sepsis. 2. Fungemia secondary to urinary tract infection. 3. Status post coronary artery bypass graft on 11/02/2016 with postop atrial flutter on amiodarone drip. 4. Diabetes. 5. History of latent tuberculosis, treated. 6. Hypertension. PLAN: The patient remains stable. We will check with pharmacy if we can switch Cancidas to Voricon azole due to interaction with amiodarone. We are going to repeat blood cultures. We will treat him with antifungal for 2 weeks once his blood cultures negative. He is being followed by multiple con sultants. We will follow their recommendations. Patient was also started on oral vancomycin for GI symptoms which we will continue for now. Dictated By: CINDY PINA DESIGN COORDINATOR for LISSETH RAND/JOSELINE Conf#: [id number] DID#: [id number]
[2016-11-15] MEDS: ATORVASTATIN 40 MG TAB PO SCH (21:29)
[2016-11-15] MEDS: INSULIN GLARGINE [LANtus] 3 ML PEN SC SCH (21:33)
[2016-11-15] MEDS: HYDROCODONE/APAP (5/325) TAB PO PRN (23:59)
[2016-11-16] VITALS (13 sets, daily range): BP systolic 99–144; BP diastolic 63–97; PULSE 74–108; RESP 17–19
[2016-11-16] MEDS: VANCOMYCIN HCL 250 MG/5ML POSYG PO SCH ×2 (06:20→12:00)
[2016-11-16] MEDS: HYDROCODONE/APAP (5/325) TAB PO PRN (06:21)
[2016-11-16] MEDS: INSULIN ASPART [NOVOLOG] 3 ML PEN SC SCH ×7 (07:52→20:36)
[2016-11-16] MEDS: AMIODARONE 200 MG TAB PO SCH (08:22)
[2016-11-16] MEDS: METOPROLOL 25 MG TAB PO SCH ×3 (08:23→17:28)
[2016-11-16] MEDS: FAMOTIDINE 20 MG TAB PO SCH ×2 (08:23→20:36)
[2016-11-16] MEDS: FUROSEMIDE 20 MG TAB PO SCH (08:23)
[2016-11-16] MEDS: ASPIRIN 81 MG TAB PO SCH (08:23)
[2016-11-16] MEDS: LAMOTRIGINE 100 MG TAB PO SCH ×2 (08:23→20:36)
[2016-11-16] MEDS: POLYETHYLENE GLYCOL 17 GM PACKET PO SCH (08:24)
[2016-11-16] MEDS: LACTOBACILLUS CHEW TAB PO SCH ×3 (08:24→20:36)
[2016-11-16] MEDS: DOCUSATE SODIUM 100 MG CAP PO SCH ×2 (08:24→20:38)
[2016-11-16] MEDS: SILVER SULFADIAZINE 1% 25 GM CR TOP SCH ×2 (08:24→20:37)
[2016-11-16 08:39] LABS: ADD SCAN DIFF NO
[2016-11-16 08:42] LABS: BASOPHILS % 0.3 % (0.0-2.0); EOSINOPHILS # 0.2 10^3/ul (0.0-0.5); EOSINOPHILS % 2.5 % (0.0-7.0); HEMATOCRIT 29.1 % (42.0-52.0); LYMPHOCYTES # 0.9 10^3/ul (0.8-2.9); LYMPHOCYTES % 11.9 % (15.0-51.0); MEAN CORPUSCULAR HEMOGLOBIN 25.4 pg (29.0-33.0); MEAN CORPUSCULAR HGB CONC 30.9 g/dl (32.0-37.0); MEAN CORPUSCULAR VOLUME 82.2 fl (82.0-101.0); MEAN PLATELET VOLUME 9.2 fl (7.4-10.4); MONOCYTE # 0.6 10^3/ul (0.3-0.9); MONOCYTES % 6.9 % (0.0-11.0); NEUTROPHIL # 6.2 10^3/ul (1.6-7.5); NEUTROPHILS % 77.8 % (39.0-77.0); PLATELET COUNT 276 10^3/UL (140-415); RED BLOOD COUNT 3.54 10^6/ul (4.70-6.10); RED CELL DISTRIBUTION WIDTH 15.8 % (11.5-14.5); WHITE BLOOD COUNT 7.9 10^3/ul (4.8-10.8)
[2016-11-16 08:57] LABS: CREATININE 0.93 mg/dl (0.61-1.24); POTASSIUM 3.7 mmol/L (3.5-5.1)
--- NOTE | 2016-11-16 09:19 | PN ---
DATE: 11/16/2016 SUBJECTIVE: History of gross hematuria, and that has subsided. The patient states that his urine n ow is clear. He still has lower extremity edema. OBJECTIVE VITAL SIGNS: His temperature is 98.9. The blood pressure 118/82, pulse is 108, respiration is 18. LABORATORY DATA: CBC shows a white count of 6.3, hemoglobin 8.6, hematocrit 29.1. The BUN is 18, c reatinine 0.85, sodium 134, potassium 3.7, chloride 96. The urine culture showed yeast, no genesis, no genesis albicans. Urine cytology is still pending. The patient is on caspofungin for his fungal infection. For the present time, we will just continue the present treatment. Dictated By: LIDIA CARRERA/JOSELINE Conf#: [id number] DID#: [id number]
[2016-11-16] MEDS: ONDANSETRON 4 MG INJ IV PRN ×2 (09:53→20:53)
--- NOTE | 2016-11-16 10:44 | PN ---
Date/Time of Note Date/Time of Note DATE: 11/16/16 TIME: 10:37 Assessment/Plan VTE Prophylaxis VTE Prophylaxis Intervention: SCD's VTE Contraindication Reason: bleeding Lines/Catheters IV Catheter Type (from Nrsg): Saline Lock Urinary Cath still in place: No Assessment/Plan Chief Complaint/Hosp Course Assessment/Plan 61 yo M who initially presented to [facility] with seizures and ended up having CABG (October 2016) now managed for: 1. Post OP Sepsis 2/2 Candiduria and Fungemia - Continue IV abx and antifungals (caspofungin) per ID, per discussion will eventually switch to PO Vfend x 14 days after they discuss first with pharmacy ( possible interaction with amiodarone) 2. Recurrent L sided Pleural effusion and possible infiltrate / CHF versus possible pneumonia - improving on last CXR 2 days ago. - monitor, if worsens, consider possible thoracentesis for L sided effusion - Continue low dose lasix 3. New onset Afib vs flutter - slightly improved, but still in RVR 110's range, asymptomatic presently - continue amiodarone 400mg PO BID, f/u CV rec's - continue metoprolol now at 75 mg q8h -holding cozaar to allow room for BB titration -per CV, if HR cannot be controlled may consider cardioversion (only if anticoagulation candidate for at least 1 month) - presently cardiology managing amiodarone and BB for Aflutter/ not a candidate for anticoagulation 2/2 hematuria? 4. Hematuria ?cause : funguria versus occult malignancy? - resolving presently - F/u urine cytology reports for hematuria / urology following / needs cystoscopy to eval hematuria but is not clinically stable for surgery / PSA pending 5. H/o of upper GI bleeding with esophagitis on EGD, stable - Monitor hgb / may require transfusion 6. Severe iron deficiency Microcytic anemia 2/2 chronic GI bleed s/p transfusion with stable hgb - Iron replacement IV x 5days ongoing 7. Chronic Seizure disorder. stable on lamictal 8. Peripheral vascular disease status post TMA R foot amputation 9. Diabetes mellitus type 2 : well controlled on Lantus and Premeal insulin 10. Post Op Pneumothorax: resolved; s/p Chest tube placement 11/09/16 and removed 11/13/16 11. Coronary artery disease, NSTEMI, s/p CABG on 11/02/2016 12. Prev Heavy tobacco and alcohol use 13. Persistent nausea and constipation: no obstruction on KUB 14. hx of cdiff - on PO vanco, f/u ID rec's PLAN: - SNF placement - working on this * Continue post op mgt and supportive care * Prognosis is guarded / patient has multiple critical issues PPx- SCDs/ PPI Problems: Subjective 24 Hr Interval Summary Free Text/Dictation Pt still with some nausea, but no hematuria presently. Exam/Review of Systems Vital Signs Vitals Vital Signs Date Time Temp Pulse Resp B/P Pulse Ox O2 Delivery O2 Flow Rate FiO2 11/16/16 09:57 108 99/65 11/16/16 08:23 98.9 18 95 11/15/16 16:00 Room Air Intake and Output 11/15/16 11/15/16 11/16/16 15:00 23:00 07:00 Intake Total 1150 ml Output Total 800 ml Balance 350 ml Exam Constitutional: alert, sitting on edge of bed, oriented Head: normocephalic Eyes: PERRL ENMT: mucosa pink and moist Neck: supple Respiratory: clear to auscultation, less diminished breath sounds, No crackles/rales, No wheezing Cardiovascular: regular rate and rhythm, No murmurs/extra sounds Gastrointestinal: bowel sounds, non-tender, soft, No ascites Extremities: other (s/p healed transmetatarsal amputation R foot), Neurological: no focal deficits Results Result Diagram: 11/16/16 0634 11/16/16 0634 Results 24 hrs Laboratory Tests Test 11/15/16 12:21 11/15/16 16:58 11/15/16 21:26 11/16/16 06:34 Bedside Glucose 117 131 169 White Blood Count 7.9 # Red Blood Count 3.54 L Hemoglobin 9.0 L Hematocrit 29.1 L Mean Corpuscular Volume 82.2 Mean Corpuscular Hemoglobin 25.4 L Mean Corpuscular Hemoglobin Concent 30.9 L Red Cell Distribution Width 15.8 H Platelet Count 276 Mean Platelet Volume 9.2 Neutrophils % 77.8 H Lymphocytes % 11.9 L Monocytes % 6.9 Eosinophils % 2.5 Basophils % 0.3 Nucleated Red Blood Cells % 0.0 Neutrophils # 6.2 Lymphocytes # 0.9 Monocytes # 0.6 Eosinophils # 0.2 Basophils # 0.0 Nucleated Red Blood Cells # 0.0 Sodium Level 135 Potassium Level 3.7 Chloride Level 97 Carbon Dioxide Level 31 Anion Gap 11 Blood Urea Nitrogen 14 Creatinine 0.93 Glucose Level 128 Calcium Level 8.0 L Test 11/16/16 07:47 Bedside Glucose 154 Medications Medications Current Medications Lorazepam (Ativan) 0.5 mg Q6H PRN IV ANXIETY; Start 10/28/16 at 04:00 Acetaminophen (Tylenol Supp) 650 mg Q6H PRN [place] PAIN LEVEL 1-3 OR FEVER Last administered on 11/12/16 01:58; Admin Dose 650 MG; Start 10/28/16 at 04:00 Aspirin (Aspirin) 81 mg DAILY PO Last administered on 11/16/16 08:23; Admin Dose 81 MG; Start 10/28/16 at 09:00 Atorvastatin Calcium (Lipitor) 40 mg HS PO Last administered on 11/15/16 21:29 ; Admin Dose 40 MG; Start 10/28/16 at 21:00 Acetaminophen/ Hydrocodone Bitart ([place] (5/325)) 1 tab Q4H PRN PO MODERATE PAIN LEVEL 4-6 Last administered on 11/10/16 18:44; Admin Dose 1 TAB; Start at 00:00 Acetaminophen/ Hydrocodone Bitart ([place] (5/325)) 2 tab Q4H PRN PO SEVERE PAIN LEVEL 7-10 Last administered on 11/16/16 06:21; Admin Dose 2 TAB; Start at 00:00 Lactobacillus Acidoph/Bulgaricus (Floranex) 1 tab BID PO Last administered on 08:09; Admin Dose 1 TAB; Start 10/30/16 at 13:00 Lamotrigine (Lamictal) 200 mg BID PO Last administered on 11/16/16 08:23; Admin Dose 200 MG; Start 10/31/16 at 14:30 Miscellaneous Information 1 ea NOTE XX ; Start 10/31/16 at 13:30 Glucose (Glutose) 15 gm Q15M PRN PO DECREASED GLUCOSE; Start 10/31/16 at 13:30 Glucose (Glutose) 22.5 gm Q15M PRN PO DECREASED GLUCOSE; Start 10/31/16 at 13: 30 Dextrose (D50w Syringe) 25 ml Q15M PRN IV DECREASED GLUCOSE; Start 10/31/16 at 13:30 Dextrose (D50w Syringe) 50 ml Q15M PRN IV DECREASED GLUCOSE; Start 10/31/16 at 13:30 Glucagon (Glucagen) 1 mg Q15M PRN IM DECREASED GLUCOSE; Start 10/31/16 at 13:30 Glucose 15 gm 15 gm Q15M PRN BUCCAL DECREASED GLUCOSE; Start 10/31/16 at 13:30 Ondansetron HCl/ Sodium Chloride (Zofran Inj/NS) 54 ml @ 216 mls/hr Q6H PRN IV NAUSEA AND/OR VOMITING Last administered on 11/08/16 22:17; Admin Dose 216 MLS/HR; Start 11/02/16 at 23:30 Insulin Glargine (Lantus) 15 unit DAILY@20 SC Last administered on 11/15/16 21 :33; Admin Dose 15 UNIT; Start 11/05/16 at 20:00 Docusate Sodium (Colace) 100 mg BID PO Last administered on 11/15/16 21:29; Admin Dose 100 MG; Start 11/08/16 at 21:00 Silver Sulfadiazine (Thermazene 1% 25 Gm) 1 applic BID TOP Last administered on 11/16/16 08:24; Admin Dose 1 APPLIC; Start 11/09/16 at 14:30 Famotidine (Pepcid) 20 mg BID PO Last administered on 11/16/16 08:23; Admin Dose 20 MG; Start 11/09/16 at 21:00 Ondansetron HCl (Zofran Inj) 4 mg Q6H PRN IV nausea Last administered on 09:53; Admin Dose 4 MG; Start 11/10/16 at 03:00 Polyethylene Glycol 17 gm 17 gm DAILY PO Last administered on 11/15/16 08:09; Admin Dose 17 GM; Start 11/12/16 at 09:00 Caspofungin/ Sodium Chloride (Cancidas/NS) 250 ml @ 250 mls/hr Q24H IVPB Last administered on 11/15/16 17:21; Admin Dose 250 MLS/HR; Start 11/13/16 at 18:00 Vancomycin HCl (Vancomycin Oral Syringe) 125 mg Q6 PO Last administered on 11/16 06:20; Admin Dose 125 MG; Start 11/12/16 at 18:00 Amiodarone HCl (Cordarone) 400 mg BID PO Last administered on 11/16/16 08:22; Admin Dose 400 MG; Start 11/14/16 at 11:30 Metoclopramide HCl (Reglan) 10 mg Q6H PRN IV NAUSEA; Start 11/15/16 at 12:00 Metoprolol Tartrate (Lopressor) 75 mg Q8H PO Last administered on 11/16/16 08: 23; Admin Dose 75 MG; Start 11/15/16 at 17:00 Furosemide (Lasix) 20 mg DAILY PO Last administered on 11/16/16 08:23; Admin Dose 20 MG; Start 11/15/16 at 14:00 MELODY QUINTERO Nov 16, 2016 10:44
[2016-11-16] MEDS ORDERED: TRIMETHOBENZAMIDE 100 MG/ML VIAL IM PRN (11:00)
--- NOTE | 2016-11-16 13:56 | CONS ---
Date/Time of Note Date/Time of Note DATE: 11/16/16 TIME: 13:52 Assessment/Plan Assessment/Plan Chief Complaint/Hosp Course SUBJECTIVE: Sleeping, looks comfortable. No fevers, c/o nausea earlier, no emesis MICROBIOLOGY: Blood culture growing yeast on 11/11/2016. Urine culture growing yeast, not [place] albicans. ANTIMICROBIALS: The patient is on Cancidas. PHYSICAL EXAMINATION: GENERAL: This is a well-developed elderly man who is in no distress. HEENT: Head atraumatic, normocephalic. Sclerae anicteric. Buccal mucosa dry. NECK: Supple. CHEST: Rise symmetrical. Breath sounds diminished to bases. HEART: S1, S2. ABDOMEN: Soft, bowel tones present. EXTREMITIES: Bilateral lower extremities edema. ASSESSMENT: 1. Resolving sepsis. 2. Fungemia secondary to urinary tract infection. 3. Status post coronary artery bypass graft on 11/02/2016 with postop atrial flutter 4. Diabetes. 5. History of latent tuberculosis, treated. 6. Hypertension. 7. Persistent nausea, poss gastroparesis PLAN: The patient remains unchanged, pending repeat bld cx's. Continue present care, dc MATIAS Zarate, consider GI eval [facility] staff Problems: Consultation Date/Type/Reason Admit Date/Time Oct 27, 2016 at 22:32 Initial Consult Date 10/28/16 Type of Consultation: id Referring Provider: DANA ESCUDERO DO Exam/Review of Systems Vital Signs Vitals Vital Signs Date Time Temp Pulse Resp B/P Pulse Ox O2 Delivery O2 Flow Rate FiO2 11/16/16 12:25 93 11/16/16 11:15 97.8 17 122/89 96 11/15/16 16:00 Room Air Intake and Output 11/15/16 11/15/16 11/16/16 15:00 23:00 07:00 Intake Total 1150 ml Output Total 800 ml Balance 350 ml Results Result Diagram: 11/16/16 0634 11/16/16 0634 Results 24 hrs Laboratory Tests Test 11/15/16 16:58 11/15/16 21:26 11/16/16 06:34 11/16/16 07:47 Bedside Glucose 131 169 154 White Blood Count 7.9 # Red Blood Count 3.54 L Hemoglobin 9.0 L Hematocrit 29.1 L Mean Corpuscular Volume 82.2 Mean Corpuscular Hemoglobin 25.4 L Mean Corpuscular Hemoglobin Concent 30.9 L Red Cell Distribution Width 15.8 H Platelet Count 276 Mean Platelet Volume 9.2 Neutrophils % 77.8 H Lymphocytes % 11.9 L Monocytes % 6.9 Eosinophils % 2.5 Basophils % 0.3 Nucleated Red Blood Cells % 0.0 Neutrophils # 6.2 Lymphocytes # 0.9 Monocytes # 0.6 Eosinophils # 0.2 Basophils # 0.0 Nucleated Red Blood Cells # 0.0 Sodium Level 135 Potassium Level 3.7 Chloride Level 97 Carbon Dioxide Level 31 Anion Gap 11 Blood Urea Nitrogen 14 Creatinine 0.93 Glucose Level 128 Calcium Level 8.0 L Test 11/16/16 12:24 Bedside Glucose 132 Medications Medications Current Medications Lorazepam (Ativan) 0.5 mg Q6H PRN IV ANXIETY; Start 10/28/16 at 04:00 Acetaminophen (Tylenol Supp) 650 mg Q6H PRN [place] PAIN LEVEL 1-3 OR FEVER Last administered on 11/12/16 01:58; Admin Dose 650 MG; Start 10/28/16 at 04:00 Aspirin (Aspirin) 81 mg DAILY PO Last administered on 11/16/16 08:23; Admin Dose 81 MG; Start 10/28/16 at 09:00 Atorvastatin Calcium (Lipitor) 40 mg HS PO Last administered on 11/15/16 21:29 ; Admin Dose 40 MG; Start 10/28/16 at 21:00 Acetaminophen/ Hydrocodone Bitart ([place] (5/325)) 1 tab Q4H PRN PO MODERATE PAIN LEVEL 4-6 Last administered on 11/10/16 18:44; Admin Dose 1 TAB; Start at 00:00 Acetaminophen/ Hydrocodone Bitart ([place] (5/325)) 2 tab Q4H PRN PO SEVERE PAIN LEVEL 7-10 Last administered on 11/16/16 06:21; Admin Dose 2 TAB; Start at 00:00 Lactobacillus Acidoph/Bulgaricus (Floranex) 1 tab BID PO Last administered on 08:09; Admin Dose 1 TAB; Start 10/30/16 at 13:00 Lamotrigine (Lamictal) 200 mg BID PO Last administered on 11/16/16 08:23; Admin Dose 200 MG; Start 10/31/16 at 14:30 Miscellaneous Information 1 ea NOTE XX ; Start 10/31/16 at 13:30 Glucose (Glutose) 15 gm Q15M PRN PO DECREASED GLUCOSE; Start 10/31/16 at 13:30 Glucose (Glutose) 22.5 gm Q15M PRN PO DECREASED GLUCOSE; Start 10/31/16 at 13: 30 Dextrose (D50w Syringe) 25 ml Q15M PRN IV DECREASED GLUCOSE; Start 10/31/16 at 13:30 Dextrose (D50w Syringe) 50 ml Q15M PRN IV DECREASED GLUCOSE; Start 10/31/16 at 13:30 Glucagon (Glucagen) 1 mg Q15M PRN IM DECREASED GLUCOSE; Start 10/31/16 at 13:30 Glucose 15 gm 15 gm Q15M PRN BUCCAL DECREASED GLUCOSE; Start 10/31/16 at 13:30 Ondansetron HCl/ Sodium Chloride (Zofran Inj/NS) 54 ml @ 216 mls/hr Q6H PRN IV NAUSEA AND/OR VOMITING Last administered on 11/08/16 22:17; Admin Dose 216 MLS/HR; Start 11/02/16 at 23:30 Insulin Glargine (Lantus) 15 unit DAILY@20 SC Last administered on 11/15/16 21 :33; Admin Dose 15 UNIT; Start 11/05/16 at 20:00 Docusate Sodium (Colace) 100 mg BID PO Last administered on 11/15/16 21:29; Admin Dose 100 MG; Start 11/08/16 at 21:00 Silver Sulfadiazine (Thermazene 1% 25 Gm) 1 applic BID TOP Last administered on 11/16/16 08:24; Admin Dose 1 APPLIC; Start 11/09/16 at 14:30 Famotidine (Pepcid) 20 mg BID PO Last administered on 11/16/16 08:23; Admin Dose 20 MG; Start 11/09/16 at 21:00 Polyethylene Glycol 17 gm 17 gm DAILY PO Last administered on 11/15/16 08:09; Admin Dose 17 GM; Start 11/12/16 at 09:00 Caspofungin/ Sodium Chloride (Cancidas/NS) 250 ml @ 250 mls/hr Q24H IVPB Last administered on 11/15/16 17:21; Admin Dose 250 MLS/HR; Start 11/13/16 at 18:00 Vancomycin HCl (Vancomycin Oral Syringe) 125 mg Q6 PO Last administered on 11/16 06:20; Admin Dose 125 MG; Start 11/12/16 at 18:00 Amiodarone HCl (Cordarone) 400 mg BID PO Last administered on 11/16/16 08:22; Admin Dose 400 MG; Start 11/14/16 at 11:30 Metoclopramide HCl (Reglan) 10 mg Q6H PRN IV NAUSEA; Start 11/15/16 at 12:00 Metoprolol Tartrate (Lopressor) 75 mg Q8H PO Last administered on 11/16/16 08: 23; Admin Dose 75 MG; Start 11/15/16 at 17:00 Furosemide (Lasix) 20 mg DAILY PO Last administered on 11/16/16 08:23; Admin Dose 20 MG; Start 11/15/16 at 14:00 Trimethobenzamide HCl (Tigan) 200 mg Q6H PRN IM NAUSEA AND/OR VOMITING Last administered on 11/16/16 13:02; Admin Dose 200 MG; Start 11/16/16 at 11:00 CINDY PINA NP Nov 16, 2016 13:56
[2016-11-16 16:00] LABS: PSA, FREE 0.1 ng/mL
[2016-11-16] MEDS: CASPOFUNGIN 50 MG in SOD CHLORIDE 0.9% 250 ML IVPB SCH (17:29)
--- NOTE | 2016-11-16 18:16 | CONS ---
Date/Time of Note Date/Time of Note DATE: 11/16/16 TIME: 18:14 Assessment/Plan Assessment/Plan Chief Complaint/Hosp Course Atrial flutter/fib: converted to atrial flutter 11/13. HR ~100-110s. Not uncommon post cardiac surgery. Not an anticoagulation candidate due to hematuria. Amiodarone ineffective Status post NSTEMI Coronary artery disease - status post CABG 11/02/2016 (CORTEZ-prox LAD-distal LAD, SVG-OM1, SVG-OM2-PDA, SVG-OM3) Acute on chronic diastolic heart failure - diuresed and thoracentesis at [facility]. Significant edema but improving Mild to moderate right apical pneumothorax - status post pigtail catheter 2016, removed 11/13 Fungemia/fungal UTI: on therapy. Fevers resolved Healthcare-associated pneumonia - per infectious disease Seizure disorder - initial presentation was seizure Diabetes mellitus Anemia - bone marrow biopsy reported to be negative Gross hematuria - per urology, improved Esophagitis on EGD Status post right transmetatarsal amputation -d/c amio as ineffective -metoprolol 75 mg q8h -lasix 20mg PO daily -hold cozaar to allow room for BB titration -continue aspirin as tolerated, monitor hematuria -continue atorvastatin Problems: Consultation Date/Type/Reason Admit Date/Time Oct 27, 2016 at 22:32 Type of Consultation: Cardiology Referring Provider: DANA ESCUDERO DO 24 HR Interval Summary Free Text/Dictation Still in fib/flutter. No complaints Exam/Review of Systems Vital Signs Vitals Vital Signs Date Time Temp Pulse Resp B/P Pulse Ox O2 Delivery O2 Flow Rate FiO2 11/16/16 16:26 94 11/16/16 15:29 98.3 17 124/69 94 11/15/16 16:00 Room Air Intake and Output 11/15/16 11/15/16 11/16/16 15:00 23:00 07:00 Intake Total 1150 ml Output Total 800 ml Balance 350 ml Exam Constitutional: alert, oriented Head: atraumatic, normocephalic Neck: No jvd Respiratory: diminished breath sounds, No clear to auscultation Cardiovascular: edema (2+), No regular rate and rhythm Gastrointestinal: non-tender, soft Neurological: nl mental status, nl speech Results Result Diagram: 11/16/16 0634 11/16/16 0634 Results 24 hrs Laboratory Tests Test 11/15/16 21:26 11/16/16 06:34 11/16/16 07:47 11/16/16 12:24 Bedside Glucose 169 154 132 White Blood Count 7.9 # Red Blood Count 3.54 L Hemoglobin 9.0 L Hematocrit 29.1 L Mean Corpuscular Volume 82.2 Mean Corpuscular Hemoglobin 25.4 L Mean Corpuscular Hemoglobin Concent 30.9 L Red Cell Distribution Width 15.8 H Platelet Count 276 Mean Platelet Volume 9.2 Neutrophils % 77.8 H Lymphocytes % 11.9 L Monocytes % 6.9 Eosinophils % 2.5 Basophils % 0.3 Nucleated Red Blood Cells % 0.0 Neutrophils # 6.2 Lymphocytes # 0.9 Monocytes # 0.6 Eosinophils # 0.2 Basophils # 0.0 Nucleated Red Blood Cells # 0.0 Sodium Level 135 Potassium Level 3.7 Chloride Level 97 Carbon Dioxide Level 31 Anion Gap 11 Blood Urea Nitrogen 14 Creatinine 0.93 Glucose Level 128 Calcium Level 8.0 L Test 11/16/16 17:27 Bedside Glucose 168 Medications Medications Current Medications Lorazepam (Ativan) 0.5 mg Q6H PRN IV ANXIETY; Start 10/28/16 at 04:00 Acetaminophen (Tylenol Supp) 650 mg Q6H PRN [place] PAIN LEVEL 1-3 OR FEVER Last administered on 11/12/16 01:58; Admin Dose 650 MG; Start 10/28/16 at 04:00 Aspirin (Aspirin) 81 mg DAILY PO Last administered on 11/16/16 08:23; Admin Dose 81 MG; Start 10/28/16 at 09:00 Atorvastatin Calcium (Lipitor) 40 mg HS PO Last administered on 11/15/16 21:29 ; Admin Dose 40 MG; Start 10/28/16 at 21:00 Acetaminophen/ Hydrocodone Bitart ([place] (5/325)) 1 tab Q4H PRN PO MODERATE PAIN LEVEL 4-6 Last administered on 11/10/16 18:44; Admin Dose 1 TAB; Start at 00:00 Acetaminophen/ Hydrocodone Bitart ([place] (5/325)) 2 tab Q4H PRN PO SEVERE PAIN LEVEL 7-10 Last administered on 11/16/16 06:21; Admin Dose 2 TAB; Start at 00:00 Lactobacillus Acidoph/Bulgaricus (Floranex) 1 tab BID PO Last administered on 17:29; Admin Dose 1 TAB; Start 10/30/16 at 13:00 Lamotrigine (Lamictal) 200 mg BID PO Last administered on 11/16/16 08:23; Admin Dose 200 MG; Start 10/31/16 at 14:30 Miscellaneous Information 1 ea NOTE XX ; Start 10/31/16 at 13:30 Glucose (Glutose) 15 gm Q15M PRN PO DECREASED GLUCOSE; Start 10/31/16 at 13:30 Glucose (Glutose) 22.5 gm Q15M PRN PO DECREASED GLUCOSE; Start 10/31/16 at 13: 30 Dextrose (D50w Syringe) 25 ml Q15M PRN IV DECREASED GLUCOSE; Start 10/31/16 at 13:30 Dextrose (D50w Syringe) 50 ml Q15M PRN IV DECREASED GLUCOSE; Start 10/31/16 at 13:30 Glucagon (Glucagen) 1 mg Q15M PRN IM DECREASED GLUCOSE; Start 10/31/16 at 13:30 Glucose 15 gm 15 gm Q15M PRN BUCCAL DECREASED GLUCOSE; Start 10/31/16 at 13:30 Ondansetron HCl/ Sodium Chloride (Zofran Inj/NS) 54 ml @ 216 mls/hr Q6H PRN IV NAUSEA AND/OR VOMITING Last administered on 11/08/16 22:17; Admin Dose 216 MLS/HR; Start 11/02/16 at 23:30 Insulin Glargine (Lantus) 15 unit DAILY@20 SC Last administered on 11/15/16 21 :33; Admin Dose 15 UNIT; Start 11/05/16 at 20:00 Docusate Sodium (Colace) 100 mg BID PO Last administered on 11/15/16 21:29; Admin Dose 100 MG; Start 11/08/16 at 21:00 Silver Sulfadiazine (Thermazene 1% 25 Gm) 1 applic BID TOP Last administered on 11/16/16 08:24; Admin Dose 1 APPLIC; Start 11/09/16 at 14:30 Famotidine (Pepcid) 20 mg BID PO Last administered on 11/16/16 08:23; Admin Dose 20 MG; Start 11/09/16 at 21:00 Polyethylene Glycol 17 gm 17 gm DAILY PO Last administered on 11/15/16 08:09; Admin Dose 17 GM; Start 11/12/16 at 09:00 Caspofungin/ Sodium Chloride (Cancidas/NS) 250 ml @ 250 mls/hr Q24H IVPB Last administered on 11/16/16 17:29; Admin Dose 250 MLS/HR; Start 11/13/16 at 18:00 Amiodarone HCl (Cordarone) 400 mg BID PO Last administered on 11/16/16 08:22; Admin Dose 400 MG; Start 11/14/16 at 11:30 Metoclopramide HCl (Reglan) 10 mg Q6H PRN IV NAUSEA; Start 11/15/16 at 12:00 Metoprolol Tartrate (Lopressor) 75 mg Q8H PO Last administered on 11/16/16 17: 28; Admin Dose 75 MG; Start 11/15/16 at 17:00 Furosemide (Lasix) 20 mg DAILY PO Last administered on 11/16/16 08:23; Admin Dose 20 MG; Start 11/15/16 at 14:00 Trimethobenzamide HCl (Tigan) 200 mg Q6H PRN IM NAUSEA AND/OR VOMITING Last administered on 11/16/16 13:02; Admin Dose 200 MG; Start 11/16/16 at 11:00 TOMMIE PERALTA Nov 16, 2016 18:16
[2016-11-16] MEDS: INSULIN GLARGINE [LANtus] 3 ML PEN SC SCH (20:00)
[2016-11-16] MEDS: ATORVASTATIN 40 MG TAB PO SCH (20:36)
--- NOTE | 2016-11-16 21:56 | CONS ---
Date/Time of Note Date/Time of Note DATE: 11/16/16 TIME: 21:54 Assessment/Plan Assessment/Plan Chief Complaint/Hosp Course Anemia S/P EGD ([facility]) Esophagitis POST BMBX- AT SO FINAL PATH - NEG MONITOR BLOOD COUNT CLOSELY NSTEMI Multivessel CAD History of seizure History of alcoholism History of C difficile colitis Diabetes mellitus Problems: Consultation Date/Type/Reason Admit Date/Time Oct 27, 2016 at 22:32 Initial Consult Date 10/28/16 [facility] Referring Provider: DANA ESCUDERO DO 24 HR Interval Summary Free Text/Dictation Pt still with some nausea, but no hematuria presently. Exam/Review of Systems Vital Signs Vitals Vital Signs Date Time Temp Pulse Resp B/P Pulse Ox O2 Delivery O2 Flow Rate FiO2 11/16/16 21:13 74 11/16/16 20:00 98.1 18 107/63 94 11/15/16 16:00 Room Air Intake and Output 11/15/16 11/15/16 11/16/16 15:00 23:00 07:00 Intake Total 1150 ml Output Total 800 ml Balance 350 ml Exam Exam Constitutional: alert, sitting on edge of bed, oriented Head: normocephalic Eyes: PERRL ENMT: mucosa pink and moist Neck: supple Respiratory: clear to auscultation, less diminished breath sounds, No crackles/rales, No wheezing Cardiovascular: regular rate and rhythm, No murmurs/extra sounds Gastrointestinal: bowel sounds, non-tender, soft, No ascites Extremities: other (s/p healed transmetatarsal amputation R foot), Neurological: no focal deficits Results Result Diagram: 11/16/16 0634 11/16/16 0634 Results 24 hrs Laboratory Tests Test 11/16/16 06:34 11/16/16 07:47 11/16/16 12:24 11/16/16 17:27 White Blood Count 7.9 # Red Blood Count 3.54 L Hemoglobin 9.0 L Hematocrit 29.1 L Mean Corpuscular Volume 82.2 Mean Corpuscular Hemoglobin 25.4 L Mean Corpuscular Hemoglobin Concent 30.9 L Red Cell Distribution Width 15.8 H Platelet Count 276 Mean Platelet Volume 9.2 Neutrophils % 77.8 H Lymphocytes % 11.9 L Monocytes % 6.9 Eosinophils % 2.5 Basophils % 0.3 Nucleated Red Blood Cells % 0.0 Neutrophils # 6.2 Lymphocytes # 0.9 Monocytes # 0.6 Eosinophils # 0.2 Basophils # 0.0 Nucleated Red Blood Cells # 0.0 Sodium Level 135 Potassium Level 3.7 Chloride Level 97 Carbon Dioxide Level 31 Anion Gap 11 Blood Urea Nitrogen 14 Creatinine 0.93 Glucose Level 128 Calcium Level 8.0 L Bedside Glucose 154 132 168 Test 11/16/16 20:34 11/16/16 21:13 Bedside Glucose 69 L 133 Medications Medications Current Medications Lorazepam (Ativan) 0.5 mg Q6H PRN IV ANXIETY; Start 10/28/16 at 04:00 Acetaminophen (Tylenol Supp) 650 mg Q6H PRN [place] PAIN LEVEL 1-3 OR FEVER Last administered on 11/12/16 01:58; Admin Dose 650 MG; Start 10/28/16 at 04:00 Aspirin (Aspirin) 81 mg DAILY PO Last administered on 11/16/16 08:23; Admin Dose 81 MG; Start 10/28/16 at 09:00 Atorvastatin Calcium (Lipitor) 40 mg HS PO Last administered on 11/16/16 20:36 ; Admin Dose 40 MG; Start 10/28/16 at 21:00 Acetaminophen/ Hydrocodone Bitart ([place] (5/325)) 1 tab Q4H PRN PO MODERATE PAIN LEVEL 4-6 Last administered on 11/10/16 18:44; Admin Dose 1 TAB; Start at 00:00 Acetaminophen/ Hydrocodone Bitart ([place] (5/325)) 2 tab Q4H PRN PO SEVERE PAIN LEVEL 7-10 Last administered on 11/16/16 06:21; Admin Dose 2 TAB; Start at 00:00 Lactobacillus Acidoph/Bulgaricus (Floranex) 1 tab BID PO Last administered on 20:36; Admin Dose 1 TAB; Start 10/30/16 at 13:00 Lamotrigine (Lamictal) 200 mg BID PO Last administered on 11/16/16 20:36; Admin Dose 200 MG; Start 10/31/16 at 14:30 Miscellaneous Information 1 ea NOTE XX ; Start 10/31/16 at 13:30 Glucose (Glutose) 15 gm Q15M PRN PO DECREASED GLUCOSE; Start 10/31/16 at 13:30 Glucose (Glutose) 22.5 gm Q15M PRN PO DECREASED GLUCOSE; Start 10/31/16 at 13: 30 Dextrose (D50w Syringe) 25 ml Q15M PRN IV DECREASED GLUCOSE Last administered on 11/16/16 20:54; Admin Dose 25 ML; Start 10/31/16 at 13:30 Dextrose (D50w Syringe) 50 ml Q15M PRN IV DECREASED GLUCOSE; Start 10/31/16 at 13:30 Glucagon (Glucagen) 1 mg Q15M PRN IM DECREASED GLUCOSE; Start 10/31/16 at 13:30 Glucose (Glutose) 15 gm Q15M PRN BUCCAL DECREASED GLUCOSE; Start 10/31/16 at 13 :30 Insulin Glargine (Lantus) 15 unit DAILY@20 SC Last administered on 11/15/16 21 :33; Admin Dose 15 UNIT; Start 11/05/16 at 20:00 Docusate Sodium (Colace) 100 mg BID PO Last administered on 11/15/16 21:29; Admin Dose 100 MG; Start 11/08/16 at 21:00 Silver Sulfadiazine (Thermazene 1% 25 Gm) 1 applic BID TOP Last administered on 11/16/16 20:37; Admin Dose 1 APPLIC; Start 11/09/16 at 14:30 Famotidine (Pepcid) 20 mg BID PO Last administered on 11/16/16 20:36; Admin Dose 20 MG; Start 11/09/16 at 21:00 Polyethylene Glycol 17 gm 17 gm DAILY PO Last administered on 11/15/16 08:09; Admin Dose 17 GM; Start 11/12/16 at 09:00 Caspofungin/ Sodium Chloride (Cancidas/NS) 250 ml @ 250 mls/hr Q24H IVPB Last administered on 11/16/16 17:29; Admin Dose 250 MLS/HR; Start 11/13/16 at 18:00 Metoclopramide HCl (Reglan) 10 mg Q6H PRN IV NAUSEA; Start 11/15/16 at 12:00 Metoprolol Tartrate (Lopressor) 75 mg Q8H PO Last administered on 11/16/16 17: 28; Admin Dose 75 MG; Start 11/15/16 at 17:00 Furosemide (Lasix) 20 mg DAILY PO Last administered on 11/16/16 08:23; Admin Dose 20 MG; Start 11/15/16 at 14:00 Trimethobenzamide HCl (Tigan) 200 mg Q6H PRN IM NAUSEA AND/OR VOMITING Last administered on 11/16/16 13:02; Admin Dose 200 MG; Start 11/16/16 at 11:00 Ondansetron HCl (Zofran Inj) 4 mg Q6H PRN IV NAUSEA AND/OR VOMITING Last administered on 11/16/16 20:53; Admin Dose 4 MG; Start 11/16/16 at 21:00 BETO PADILLA MD Nov 16, 2016 21:56
[2016-11-17] VITALS (13 sets, daily range): BP systolic 91–128; BP diastolic 55–78; PULSE 75–101; RESP 17–22
[2016-11-17] MEDS: METOPROLOL 25 MG TAB PO SCH ×3 (00:53→17:50)
[2016-11-17 06:59] LABS: ADD SCAN DIFF NO
[2016-11-17 07:03] LABS: BASOPHILS % 0.4 % (0.0-2.0); EOSINOPHILS # 0.3 10^3/ul (0.0-0.5); HEMATOCRIT 27.5 % (42.0-52.0); HEMOGLOBIN 8.6 g/dl (14.0-18.0); LYMPHOCYTES # 1.4 10^3/ul (0.8-2.9); LYMPHOCYTES % 16.4 % (15.0-51.0); MEAN CORPUSCULAR HGB CONC 31.3 g/dl (32.0-37.0); MEAN CORPUSCULAR VOLUME 83.1 fl (82.0-101.0); MEAN PLATELET VOLUME 8.8 fl (7.4-10.4); MONOCYTE # 0.5 10^3/ul (0.3-0.9); MONOCYTES % 5.8 % (0.0-11.0); NEUTROPHIL # 6.2 10^3/ul (1.6-7.5); NEUTROPHILS % 73.8 % (39.0-77.0); PLATELET COUNT 244 10^3/UL (140-415); RED BLOOD COUNT 3.31 10^6/ul (4.70-6.10); RED CELL DISTRIBUTION WIDTH 15.9 % (11.5-14.5); WHITE BLOOD COUNT 8.4 10^3/ul (4.8-10.8)
[2016-11-17 07:25] LABS: CALCIUM 7.6 mg/dl (8.4-10.2); CREATININE 1.1 mg/dl (0.61-1.24); POTASSIUM 3.8 mmol/L (3.5-5.1)
[2016-11-17 07:31] LABS: MAGNESIUM 2.2 mg/dl (1.7-2.5); PHOSPHORUS 4.2 mg/dl (2.5-4.9)
[2016-11-17] MEDS: INSULIN ASPART [NOVOLOG] 3 ML PEN SC SCH ×7 (07:55→20:53)
[2016-11-17] MEDS: POLYETHYLENE GLYCOL 17 GM PACKET PO SCH (09:00)
[2016-11-17] MEDS: DOCUSATE SODIUM 100 MG CAP PO SCH ×2 (09:00→20:50)
[2016-11-17] MEDS: FAMOTIDINE 20 MG TAB PO SCH ×2 (09:32→20:49)
[2016-11-17] MEDS: LAMOTRIGINE 100 MG TAB PO SCH ×2 (09:32→20:50)
[2016-11-17] MEDS: LACTOBACILLUS CHEW TAB PO SCH ×2 (09:32→20:50)
[2016-11-17] MEDS: ASPIRIN 81 MG TAB PO SCH (09:32)
[2016-11-17] MEDS: SILVER SULFADIAZINE 1% 25 GM CR TOP SCH ×2 (09:33→20:50)
[2016-11-17] MEDS: FUROSEMIDE 20 MG TAB PO SCH (09:33)
--- NOTE | 2016-11-17 10:01 | PN ---
DATE: 11/17/2016 SUBJECTIVE: Gross hematuria but that has cleared. The patient is feeling uncomfortable. OBJECTIVE: VITAL SIGNS: His temperature is 97.5, the blood pressure 120/68, respiration 17, pulse 75. The leg edema is less, but it is still present and the urine is clear. There is no hematuria. The urine cy tology on two specimens has been negative. No malignant cells. LABORATORY DATA: His CBC shows a white count of 8.4, hemoglobin 8.6, hematocrit 27.5, platelet cou nt 244,000. The BUN is 15, creatinine 1.10, sodium 134, potassium 3.8, chloride 98, CO2 31. From a urological standpoint, the hematuria has cleared and the urine cytology is negative, we will just watch him. Dictated By: LIDIA CARRERA/JOSELINE Conf#: [id number] DID#: [id number]
--- NOTE | 2016-11-17 10:39 | PN ---
Date/Time of Note Date/Time of Note DATE: 11/17/16 TIME: 10:38 Assessment/Plan VTE Prophylaxis VTE Prophylaxis Intervention: SCD's VTE Contraindication Reason: bleeding Lines/Catheters IV Catheter Type (from Nrsg): [facility] [facility] Urinary Cath still in place: No Assessment/Plan Chief Complaint/Hosp Course Assessment/Plan 61 yo M who initially presented to [facility] with seizures and ended up having CABG (October 2016) now managed for: 1. Post OP Sepsis 2/2 Candiduria and Fungemia - Continue IV abx and antifungals (caspofungin) per ID, per discussion will eventually switch to PO Vfend x 14 days after they discuss first with pharmacy ( possible interaction with amiodarone) 2. Recurrent L sided Pleural effusion and possible infiltrate / CHF versus possible pneumonia - improving on last CXR 3 days ago. - monitor - Continue low dose lasix 3. New onset Afib vs flutter - slightly improved, but still in RVR 110's range, asymptomatic presently. Amiodarone stopped yesterday - f/u CV rec's - continue metoprolol now at 75 mg q8h -holding cozaar to allow room for BB titration -per CV, if HR cannot be controlled may consider cardioversion (only if anticoagulation candidate for at least 1 month) - presently cardiology managing amiodarone and BB for Aflutter/ not a candidate for anticoagulation 2/2 hematuria? 4. Hematuria ?cause : funguria versus occult malignancy? - resolving presently - F/u urine cytology reports for hematuria / urology following / needs cystoscopy to eval hematuria but is not clinically stable for surgery / PSA pending 5. H/o of upper GI bleeding with esophagitis on EGD, stable - Monitor hgb / may require transfusion 6. Severe iron deficiency Microcytic anemia 2/2 chronic GI bleed s/p transfusion with stable hgb - Iron replacement IV x 5days ongoing 7. Chronic Seizure disorder. stable on lamictal 8. Peripheral vascular disease status post TMA R foot amputation 9. Diabetes mellitus type 2 : well controlled on Lantus and Premeal insulin 10. Post Op Pneumothorax: resolved; s/p Chest tube placement 11/09/16 and removed 11/13/16 11. Coronary artery disease, NSTEMI, s/p CABG on 11/02/2016 12. Prev Heavy tobacco and alcohol use 13. Persistent nausea and constipation: no obstruction on KUB 14. hx of cdiff - on PO vanco, f/u ID rec's PLAN: - SNF placement - working on this * Continue post op mgt and supportive care * Prognosis is guarded / patient has multiple critical issues PPx- SCDs/ PPI Problems: Subjective 24 Hr Interval Summary Free Text/Dictation Still had some n/v last night, improved this AM. Exam/Review of Systems Vital Signs Vitals Vital Signs Date Time Temp Pulse Resp B/P Pulse Ox O2 Delivery O2 Flow Rate FiO2 11/17/16 08:20 75 11/17/16 08:00 97.5 17 120/68 96 11/15/16 16:00 Room Air Intake and Output 11/16/16 11/16/16 11/17/16 15:00 23:00 07:00 Intake Total 900 ml 500 ml Output Total 200 ml 600 ml Balance 700 ml -100 ml Exam Constitutional: alert, sitting on edge of bed, oriented Head: normocephalic Eyes: PERRL ENMT: mucosa pink and moist Neck: supple Respiratory: clear to auscultation, less diminished breath sounds, No crackles/rales, No wheezing Cardiovascular: regular rate and rhythm, No murmurs/extra sounds Gastrointestinal: bowel sounds, non-tender, soft, No ascites Extremities: other (s/p healed transmetatarsal amputation R foot), Neurological: no focal deficits Results Result Diagram: 11/17/16 0655 11/17/16 0655 Results 24 hrs Laboratory Tests Test 11/16/16 12:24 11/16/16 17:27 11/16/16 20:34 11/16/16 21:13 Bedside Glucose 132 168 69 L 133 Test 11/17/16 01:29 11/17/16 06:55 11/17/16 08:13 Bedside Glucose 99 104 White Blood Count 8.4 Red Blood Count 3.31 L Hemoglobin 8.6 L Hematocrit 27.5 L Mean Corpuscular Volume 83.1 Mean Corpuscular Hemoglobin 26.0 L Mean Corpuscular Hemoglobin Concent 31.3 L Red Cell Distribution Width 15.9 H Platelet Count 244 Mean Platelet Volume 8.8 Neutrophils % 73.8 Lymphocytes % 16.4 Monocytes % 5.8 Eosinophils % 3.0 Basophils % 0.4 Nucleated Red Blood Cells % 0.0 Neutrophils # 6.2 Lymphocytes # 1.4 Monocytes # 0.5 Eosinophils # 0.3 Basophils # 0.0 Nucleated Red Blood Cells # 0.0 Sodium Level 134 L Potassium Level 3.8 Chloride Level 98 Carbon Dioxide Level 31 Anion Gap 9 Blood Urea Nitrogen 15 Creatinine 1.10 Glucose Level 106 Calcium Level 7.6 L Phosphorus Level 4.2 Magnesium Level 2.2 Medications Medications Current Medications Lorazepam (Ativan) 0.5 mg Q6H PRN IV ANXIETY; Start 10/28/16 at 04:00 Acetaminophen (Tylenol Supp) 650 mg Q6H PRN [place] PAIN LEVEL 1-3 OR FEVER Last administered on 11/12/16 01:58; Admin Dose 650 MG; Start 10/28/16 at 04:00 Aspirin (Aspirin) 81 mg DAILY PO Last administered on 11/17/16 09:32; Admin Dose 81 MG; Start 10/28/16 at 09:00 Atorvastatin Calcium (Lipitor) 40 mg HS PO Last administered on 11/16/16 20:36 ; Admin Dose 40 MG; Start 10/28/16 at 21:00 Acetaminophen/ Hydrocodone Bitart ([place] (5/325)) 1 tab Q4H PRN PO MODERATE PAIN LEVEL 4-6 Last administered on 11/10/16 18:44; Admin Dose 1 TAB; Start at 00:00 Acetaminophen/ Hydrocodone Bitart ([place] (5/325)) 2 tab Q4H PRN PO SEVERE PAIN LEVEL 7-10 Last administered on 11/16/16 06:21; Admin Dose 2 TAB; Start at 00:00 Lactobacillus Acidoph/Bulgaricus (Floranex) 1 tab BID PO Last administered on 09:32; Admin Dose 1 TAB; Start 10/30/16 at 13:00 Lamotrigine (Lamictal) 200 mg BID PO Last administered on 11/17/16 09:32; Admin Dose 200 MG; Start 10/31/16 at 14:30 Miscellaneous Information 1 ea NOTE XX ; Start 10/31/16 at 13:30 Glucose (Glutose) 15 gm Q15M PRN PO DECREASED GLUCOSE; Start 10/31/16 at 13:30 Glucose (Glutose) 22.5 gm Q15M PRN PO DECREASED GLUCOSE; Start 10/31/16 at 13: 30 Dextrose (D50w Syringe) 25 ml Q15M PRN IV DECREASED GLUCOSE Last administered on 11/16/16 20:54; Admin Dose 25 ML; Start 10/31/16 at 13:30 Dextrose (D50w Syringe) 50 ml Q15M PRN IV DECREASED GLUCOSE; Start 10/31/16 at 13:30 Glucagon (Glucagen) 1 mg Q15M PRN IM DECREASED GLUCOSE; Start 10/31/16 at 13:30 Glucose (Glutose) 15 gm Q15M PRN BUCCAL DECREASED GLUCOSE; Start 10/31/16 at 13 :30 Insulin Glargine (Lantus) 15 unit DAILY@20 SC Last administered on 11/15/16 21 :33; Admin Dose 15 UNIT; Start 11/05/16 at 20:00 Docusate Sodium (Colace) 100 mg BID PO Last administered on 11/15/16 21:29; Admin Dose 100 MG; Start 11/08/16 at 21:00 Silver Sulfadiazine (Thermazene 1% 25 Gm) 1 applic BID TOP Last administered on 11/17/16 09:33; Admin Dose 1 APPLIC; Start 11/09/16 at 14:30 Famotidine (Pepcid) 20 mg BID PO Last administered on 11/17/16 09:32; Admin Dose 20 MG; Start 11/09/16 at 21:00 Polyethylene Glycol 17 gm 17 gm DAILY PO Last administered on 11/15/16 08:09; Admin Dose 17 GM; Start 11/12/16 at 09:00 Caspofungin/ Sodium Chloride (Cancidas/NS) 250 ml @ 250 mls/hr Q24H IVPB Last administered on 11/16/16 17:29; Admin Dose 250 MLS/HR; Start 11/13/16 at 18:00 Metoclopramide HCl (Reglan) 10 mg Q6H PRN IV NAUSEA; Start 11/15/16 at 12:00 Metoprolol Tartrate (Lopressor) 75 mg Q8H PO Last administered on 11/17/16 09: 32; Admin Dose 75 MG; Start 11/15/16 at 17:00 Furosemide (Lasix) 20 mg DAILY PO Last administered on 11/17/16 09:33; Admin Dose 20 MG; Start 11/15/16 at 14:00 Trimethobenzamide HCl (Tigan) 200 mg Q6H PRN IM NAUSEA AND/OR VOMITING Last administered on 11/16/16 13:02; Admin Dose 200 MG; Start 11/16/16 at 11:00 Ondansetron HCl (Zofran Inj) 4 mg Q6H PRN IV NAUSEA AND/OR VOMITING Last administered on 11/16/16 20:53; Admin Dose 4 MG; Start 11/16/16 at 21:00 MELODY QUINTERO Nov 17, 2016 10:39
--- NOTE | 2016-11-17 11:19 | CONS ---
Date/Time of Note Date/Time of Note DATE: 11/17/16 TIME: : Assessment/Plan Assessment/Plan Chief Complaint/Hosp Course Atrial flutter/fib: converted to atrial flutter 11/13. HR ~100-110s. Not uncommon post cardiac surgery. Amiodarone ineffective for rhythm control. Initially not an anticoagulation candidate due to hematuria but will ask urology to comment if ok to start Eliquis for stroke prophylaxis Status post NSTEMI Coronary artery disease - status post CABG 11/02/2016 (CORTEZ-prox LAD-distal LAD, SVG-OM1, SVG-OM2-PDA, SVG-OM3) Acute on chronic diastolic heart failure - diuresed and thoracentesis at [facility]. Significant edema but improving Mild to moderate right apical pneumothorax - status post pigtail catheter 2016, removed 11/13 Fungemia/fungal UTI: on therapy. Fevers resolved Healthcare-associated pneumonia - per infectious disease Seizure disorder - initial presentation was seizure Diabetes mellitus Anemia - bone marrow biopsy reported to be negative Gross hematuria - per urology, improved Esophagitis on EGD Status post right transmetatarsal amputation -if ok with urology would start Eliquis 5mg BID -metoprolol 75 mg q8h -lasix 20mg PO daily -hold cozaar for now -continue aspirin as tolerated, monitor hematuria -continue atorvastatin Problems: Consultation Date/Type/Reason Admit Date/Time Oct 27, 2016 at 22:32 Type of Consultation: Cardiology Referring Provider: DANA ESCUDERO DO 24 HR Interval Summary Free Text/Dictation No o/n vents. HR controlled. Nausea improving. No hematuria Exam/Review of Systems Vital Signs Vitals Vital Signs Date Time Temp Pulse Resp B/P Pulse Ox O2 Delivery O2 Flow Rate FiO2 11/17/16 08:20 75 11/17/16 08:00 97.5 17 120/68 96 11/15/16 16:00 Room Air Intake and Output 11/16/16 11/16/16 11/17/16 15:00 23:00 07:00 Intake Total 900 ml 500 ml Output Total 200 ml 600 ml Balance 700 ml -100 ml Exam Constitutional: alert, oriented Head: atraumatic, normocephalic Neck: No jvd Respiratory: clear to auscultation, No crackles/rales Cardiovascular: edema (2+), No regular rate and rhythm Gastrointestinal: non-tender, soft Neurological: nl mental status, nl speech Results Result Diagram: 11/17/16 0655 11/17/16 0655 Results 24 hrs Laboratory Tests Test 11/16/16 12:24 11/16/16 17:27 11/16/16 20:34 11/16/16 21:13 Bedside Glucose 132 168 69 L 133 Test 11/17/16 01:29 11/17/16 06:55 11/17/16 08:13 Bedside Glucose 99 104 White Blood Count 8.4 Red Blood Count 3.31 L Hemoglobin 8.6 L Hematocrit 27.5 L Mean Corpuscular Volume 83.1 Mean Corpuscular Hemoglobin 26.0 L Mean Corpuscular Hemoglobin Concent 31.3 L Red Cell Distribution Width 15.9 H Platelet Count 244 Mean Platelet Volume 8.8 Neutrophils % 73.8 Lymphocytes % 16.4 Monocytes % 5.8 Eosinophils % 3.0 Basophils % 0.4 Nucleated Red Blood Cells % 0.0 Neutrophils # 6.2 Lymphocytes # 1.4 Monocytes # 0.5 Eosinophils # 0.3 Basophils # 0.0 Nucleated Red Blood Cells # 0.0 Sodium Level 134 L Potassium Level 3.8 Chloride Level 98 Carbon Dioxide Level 31 Anion Gap 9 Blood Urea Nitrogen 15 Creatinine 1.10 Glucose Level 106 Calcium Level 7.6 L Phosphorus Level 4.2 Magnesium Level 2.2 Medications Medications Current Medications Lorazepam (Ativan) 0.5 mg Q6H PRN IV ANXIETY; Start 10/28/16 at 04:00 Acetaminophen (Tylenol Supp) 650 mg Q6H PRN [place] PAIN LEVEL 1-3 OR FEVER Last administered on 11/12/16 01:58; Admin Dose 650 MG; Start 10/28/16 at 04:00 Aspirin (Aspirin) 81 mg DAILY PO Last administered on 11/17/16 09:32; Admin Dose 81 MG; Start 10/28/16 at 09:00 Atorvastatin Calcium (Lipitor) 40 mg HS PO Last administered on 11/16/16 20:36 ; Admin Dose 40 MG; Start 10/28/16 at 21:00 Acetaminophen/ Hydrocodone Bitart ([place] (5/325)) 1 tab Q4H PRN PO MODERATE PAIN LEVEL 4-6 Last administered on 11/10/16 18:44; Admin Dose 1 TAB; Start at 00:00 Acetaminophen/ Hydrocodone Bitart ([place] (5/325)) 2 tab Q4H PRN PO SEVERE PAIN LEVEL 7-10 Last administered on 11/16/16 06:21; Admin Dose 2 TAB; Start at 00:00 Lactobacillus Acidoph/Bulgaricus (Floranex) 1 tab BID PO Last administered on 09:32; Admin Dose 1 TAB; Start 10/30/16 at 13:00 Lamotrigine (Lamictal) 200 mg BID PO Last administered on 11/17/16 09:32; Admin Dose 200 MG; Start 10/31/16 at 14:30 Miscellaneous Information 1 ea NOTE XX ; Start 10/31/16 at 13:30 Glucose (Glutose) 15 gm Q15M PRN PO DECREASED GLUCOSE; Start 10/31/16 at 13:30 Glucose (Glutose) 22.5 gm Q15M PRN PO DECREASED GLUCOSE; Start 10/31/16 at 13: 30 Dextrose (D50w Syringe) 25 ml Q15M PRN IV DECREASED GLUCOSE Last administered on 11/16/16 20:54; Admin Dose 25 ML; Start 10/31/16 at 13:30 Dextrose (D50w Syringe) 50 ml Q15M PRN IV DECREASED GLUCOSE; Start 10/31/16 at 13:30 Glucagon (Glucagen) 1 mg Q15M PRN IM DECREASED GLUCOSE; Start 10/31/16 at 13:30 Glucose (Glutose) 15 gm Q15M PRN BUCCAL DECREASED GLUCOSE; Start 10/31/16 at 13 :30 Insulin Glargine (Lantus) 15 unit DAILY@20 SC Last administered on 11/15/16 21 :33; Admin Dose 15 UNIT; Start 11/05/16 at 20:00 Docusate Sodium (Colace) 100 mg BID PO Last administered on 11/15/16 21:29; Admin Dose 100 MG; Start 11/08/16 at 21:00 Silver Sulfadiazine (Thermazene 1% 25 Gm) 1 applic BID TOP Last administered on 11/17/16 09:33; Admin Dose 1 APPLIC; Start 11/09/16 at 14:30 Famotidine (Pepcid) 20 mg BID PO Last administered on 11/17/16 09:32; Admin Dose 20 MG; Start 11/09/16 at 21:00 Polyethylene Glycol 17 gm 17 gm DAILY PO Last administered on 11/15/16 08:09; Admin Dose 17 GM; Start 11/12/16 at 09:00 Caspofungin/ Sodium Chloride (Cancidas/NS) 250 ml @ 250 mls/hr Q24H IVPB Last administered on 11/16/16 17:29; Admin Dose 250 MLS/HR; Start 11/13/16 at 18:00 Metoclopramide HCl (Reglan) 10 mg Q6H PRN IV NAUSEA; Start 11/15/16 at 12:00 Metoprolol Tartrate (Lopressor) 75 mg Q8H PO Last administered on 11/17/16 09: 32; Admin Dose 75 MG; Start 11/15/16 at 17:00 Furosemide (Lasix) 20 mg DAILY PO Last administered on 11/17/16 09:33; Admin Dose 20 MG; Start 11/15/16 at 14:00 Trimethobenzamide HCl (Tigan) 200 mg Q6H PRN IM NAUSEA AND/OR VOMITING Last administered on 11/16/16 13:02; Admin Dose 200 MG; Start 11/16/16 at 11:00 Ondansetron HCl (Zofran Inj) 4 mg Q6H PRN IV NAUSEA AND/OR VOMITING Last administered on 11/16/16 20:53; Admin Dose 4 MG; Start 11/16/16 at 21:00 TOMMIE PERALTA Nov 17, 2016 11:19
[2016-11-17] MEDS: ONDANSETRON 4 MG INJ IV PRN (11:47)
[2016-11-17] MEDS: APIXABAN 5 MG TABLET PO SCH ×2 (15:04→20:49)
--- NOTE | 2016-11-17 16:40 | CONS ---
Date/Time of Note Date/Time of Note DATE: 11/17/16 TIME: 16:38 Assessment/Plan Assessment/Plan Chief Complaint/Hosp Course SUBJECTIVE: Alert, feels good. No fevers MICROBIOLOGY: Blood culture growing yeast on 11/11/2016. Urine culture growing yeast, not [place] albicans. ANTIMICROBIALS: The patient is on Cancidas. PHYSICAL EXAMINATION: GENERAL: This is a well-developed elderly man who is in no distress. HEENT: Head atraumatic, normocephalic. Sclerae anicteric. Buccal mucosa dry. NECK: Supple. CHEST: Rise symmetrical. Breath sounds diminished to bases. HEART: S1, S2. ABDOMEN: Soft, bowel tones present. EXTREMITIES: Bilateral lower extremities edema. ASSESSMENT: 1. Resolving sepsis. 2. Fungemia secondary to urinary tract infection. 3. Status post coronary artery bypass graft on 11/02/2016 with postop atrial flutter 4. Diabetes. 5. History of latent tuberculosis, treated. 6. Hypertension. 7. Persistent nausea, poss gastroparesis PLAN: The patient remains stable, feels better today, repeat bld cx's negative. Continue present care, will complete Cancidas for 8 more days [facility] staff Problems: Consultation Date/Type/Reason Admit Date/Time Oct 27, 2016 at 22:32 Initial Consult Date 10/28/16 Type of Consultation: id Referring Provider: DANA ESCUDERO DO Exam/Review of Systems Vital Signs Vitals Vital Signs Date Time Temp Pulse Resp B/P Pulse Ox O2 Delivery O2 Flow Rate FiO2 11/17/16 16:36 89 11/17/16 15:31 97.9 17 117/77 92 11/15/16 16:00 Room Air Intake and Output 11/16/16 11/16/16 11/17/16 15:00 23:00 07:00 Intake Total 900 ml 500 ml Output Total 200 ml 600 ml Balance 700 ml -100 ml Results Result Diagram: 11/17/16 0655 11/17/16 0655 Results 24 hrs Laboratory Tests Test 11/16/16 17:27 11/16/16 20:34 11/16/16 21:13 11/17/16 01:29 Bedside Glucose 168 69 L 133 99 Test 11/17/16 06:55 11/17/16 08:13 11/17/16 12:17 White Blood Count 8.4 Red Blood Count 3.31 L Hemoglobin 8.6 L Hematocrit 27.5 L Mean Corpuscular Volume 83.1 Mean Corpuscular Hemoglobin 26.0 L Mean Corpuscular Hemoglobin Concent 31.3 L Red Cell Distribution Width 15.9 H Platelet Count 244 Mean Platelet Volume 8.8 Neutrophils % 73.8 Lymphocytes % 16.4 Monocytes % 5.8 Eosinophils % 3.0 Basophils % 0.4 Nucleated Red Blood Cells % 0.0 Neutrophils # 6.2 Lymphocytes # 1.4 Monocytes # 0.5 Eosinophils # 0.3 Basophils # 0.0 Nucleated Red Blood Cells # 0.0 Sodium Level 134 L Potassium Level 3.8 Chloride Level 98 Carbon Dioxide Level 31 Anion Gap 9 Blood Urea Nitrogen 15 Creatinine 1.10 Glucose Level 106 Calcium Level 7.6 L Phosphorus Level 4.2 Magnesium Level 2.2 Bedside Glucose 104 151 Medications Medications Current Medications Lorazepam (Ativan) 0.5 mg Q6H PRN IV ANXIETY; Start 10/28/16 at 04:00 Acetaminophen (Tylenol Supp) 650 mg Q6H PRN [place] PAIN LEVEL 1-3 OR FEVER Last administered on 11/12/16 01:58; Admin Dose 650 MG; Start 10/28/16 at 04:00 Aspirin (Aspirin) 81 mg DAILY PO Last administered on 11/17/16 09:32; Admin Dose 81 MG; Start 10/28/16 at 09:00 Atorvastatin Calcium (Lipitor) 40 mg HS PO Last administered on 11/16/16 20:36 ; Admin Dose 40 MG; Start 10/28/16 at 21:00 Acetaminophen/ Hydrocodone Bitart ([place] (5/325)) 1 tab Q4H PRN PO MODERATE PAIN LEVEL 4-6 Last administered on 11/10/16 18:44; Admin Dose 1 TAB; Start at 00:00 Acetaminophen/ Hydrocodone Bitart ([place] (5/325)) 2 tab Q4H PRN PO SEVERE PAIN LEVEL 7-10 Last administered on 11/16/16 06:21; Admin Dose 2 TAB; Start at 00:00 Lactobacillus Acidoph/Bulgaricus (Floranex) 1 tab BID PO Last administered on 09:32; Admin Dose 1 TAB; Start 10/30/16 at 13:00 Lamotrigine (Lamictal) 200 mg BID PO Last administered on 11/17/16 09:32; Admin Dose 200 MG; Start 10/31/16 at 14:30 Miscellaneous Information 1 ea NOTE XX ; Start 10/31/16 at 13:30 Glucose (Glutose) 15 gm Q15M PRN PO DECREASED GLUCOSE; Start 10/31/16 at 13:30 Glucose (Glutose) 22.5 gm Q15M PRN PO DECREASED GLUCOSE; Start 10/31/16 at 13: 30 Dextrose (D50w Syringe) 25 ml Q15M PRN IV DECREASED GLUCOSE Last administered on 11/16/16 20:54; Admin Dose 25 ML; Start 10/31/16 at 13:30 Dextrose (D50w Syringe) 50 ml Q15M PRN IV DECREASED GLUCOSE; Start 10/31/16 at 13:30 Glucagon (Glucagen) 1 mg Q15M PRN IM DECREASED GLUCOSE; Start 10/31/16 at 13:30 Glucose (Glutose) 15 gm Q15M PRN BUCCAL DECREASED GLUCOSE; Start 10/31/16 at 13 :30 Insulin Glargine (Lantus) 15 unit DAILY@20 SC Last administered on 11/15/16 21 :33; Admin Dose 15 UNIT; Start 11/05/16 at 20:00 Docusate Sodium (Colace) 100 mg BID PO Last administered on 11/15/16 21:29; Admin Dose 100 MG; Start 11/08/16 at 21:00 Silver Sulfadiazine (Thermazene 1% 25 Gm) 1 applic BID TOP Last administered on 11/17/16 09:33; Admin Dose 1 APPLIC; Start 11/09/16 at 14:30 Famotidine (Pepcid) 20 mg BID PO Last administered on 11/17/16 09:32; Admin Dose 20 MG; Start 11/09/16 at 21:00 Polyethylene Glycol 17 gm 17 gm DAILY PO Last administered on 11/15/16 08:09; Admin Dose 17 GM; Start 11/12/16 at 09:00 Caspofungin/ Sodium Chloride (Cancidas/NS) 250 ml @ 250 mls/hr Q24H IVPB Last administered on 11/16/16 17:29; Admin Dose 250 MLS/HR; Start 11/13/16 at 18:00 Metoclopramide HCl (Reglan) 10 mg Q6H PRN IV NAUSEA; Start 11/15/16 at 12:00 Metoprolol Tartrate (Lopressor) 75 mg Q8H PO Last administered on 11/17/16 09: 32; Admin Dose 75 MG; Start 11/15/16 at 17:00 Furosemide (Lasix) 20 mg DAILY PO Last administered on 11/17/16 09:33; Admin Dose 20 MG; Start 11/15/16 at 14:00 Trimethobenzamide HCl (Tigan) 200 mg Q6H PRN IM NAUSEA AND/OR VOMITING Last administered on 11/16/16 13:02; Admin Dose 200 MG; Start 11/16/16 at 11:00 Ondansetron HCl (Zofran Inj) 4 mg Q6H PRN IV NAUSEA AND/OR VOMITING Last administered on 11/17/16 11:47; Admin Dose 4 MG; Start 11/16/16 at 21:00 Apixaban (Eliquis) 5 mg BID PO Last administered on 11/17/16 15:04; Admin Dose 5 MG; Start 11/17/16 at 14:30 CINDY PINA NP Nov 17, 2016 16:40
[2016-11-17] MEDS: CASPOFUNGIN 50 MG in SOD CHLORIDE 0.9% 250 ML IVPB SCH (17:50)
[2016-11-17] MEDS: ATORVASTATIN 40 MG TAB PO SCH (20:49)
[2016-11-17] MEDS: INSULIN GLARGINE [LANtus] 3 ML PEN SC SCH (21:00)
--- NOTE | 2016-11-17 23:24 | CONS ---
Date/Time of Note Date/Time of Note DATE: 11/17/16 TIME: 23:23 Assessment/Plan Assessment/Plan Chief Complaint/Hosp Course Anemia S/P EGD ([facility]) Esophagitis POST BMBX- AT [facility] FINAL PATH - NEG MONITOR BLOOD COUNT CLOSELY RECHECK STOOL OB NSTEMI Multivessel CAD History of seizure History of alcoholism History of C difficile colitis Diabetes mellitus Problems: Consultation Date/Type/Reason Admit Date/Time Oct 27, 2016 at 22:32 Initial Consult Date 10/28/16 Type of Consultation: HEMEON Referring Provider: DANA ESCUDERO DO 24 HR Interval Summary Free Text/Dictation DONG OK NO NEW EVENTS H//H - SL DOWN Exam/Review of Systems Vital Signs Vitals Vital Signs Date Time Temp Pulse Resp B/P Pulse Ox O2 Delivery O2 Flow Rate FiO2 11/17/16 20:38 100 11/17/16 19:38 97.5 20 128/78 96 11/15/16 16:00 Room Air Intake and Output 11/16/16 11/16/16 11/17/16 15:00 23:00 07:00 Intake Total 900 ml 500 ml Output Total 200 ml 600 ml Balance 700 ml -100 ml Exam Constitutional: alert, oriented Head: atraumatic, normocephalic Neck: No jvd Respiratory: clear to auscultation, No crackles/rales Cardiovascular: edema (2+), No regular rate and rhythm Gastrointestinal: non-tender, soft Neurological: nl mental status, nl speech Results Result Diagram: 11/17/16 0655 11/17/16 0655 Results 24 hrs Laboratory Tests Test 11/17/16 01:29 11/17/16 06:55 11/17/16 08:13 11/17/16 12:17 Bedside Glucose 99 104 151 White Blood Count 8.4 Red Blood Count 3.31 L Hemoglobin 8.6 L Hematocrit 27.5 L Mean Corpuscular Volume 83.1 Mean Corpuscular Hemoglobin 26.0 L Mean Corpuscular Hemoglobin Concent 31.3 L Red Cell Distribution Width 15.9 H Platelet Count 244 Mean Platelet Volume 8.8 Neutrophils % 73.8 Lymphocytes % 16.4 Monocytes % 5.8 Eosinophils % 3.0 Basophils % 0.4 Nucleated Red Blood Cells % 0.0 Neutrophils # 6.2 Lymphocytes # 1.4 Monocytes # 0.5 Eosinophils # 0.3 Basophils # 0.0 Nucleated Red Blood Cells # 0.0 Sodium Level 134 L Potassium Level 3.8 Chloride Level 98 Carbon Dioxide Level 31 Anion Gap 9 Blood Urea Nitrogen 15 Creatinine 1.10 Glucose Level 106 Calcium Level 7.6 L Phosphorus Level 4.2 Magnesium Level 2.2 Test 11/17/16 17:34 11/17/16 20:52 Bedside Glucose 142 228 H Medications Medications Current Medications Lorazepam (Ativan) 0.5 mg Q6H PRN IV ANXIETY; Start 10/28/16 at 04:00 Acetaminophen (Tylenol Supp) 650 mg Q6H PRN [place] PAIN LEVEL 1-3 OR FEVER Last administered on 11/12/16 01:58; Admin Dose 650 MG; Start 10/28/16 at 04:00 Aspirin (Aspirin) 81 mg DAILY PO Last administered on 11/17/16 09:32; Admin Dose 81 MG; Start 10/28/16 at 09:00 Atorvastatin Calcium (Lipitor) 40 mg HS PO Last administered on 11/17/16 20:49 ; Admin Dose 40 MG; Start 10/28/16 at 21:00 Acetaminophen/ Hydrocodone Bitart ([place] (5/325)) 1 tab Q4H PRN PO MODERATE PAIN LEVEL 4-6 Last administered on 11/10/16 18:44; Admin Dose 1 TAB; Start at 00:00 Acetaminophen/ Hydrocodone Bitart ([place] (5/325)) 2 tab Q4H PRN PO SEVERE PAIN LEVEL 7-10 Last administered on 11/16/16 06:21; Admin Dose 2 TAB; Start at 00:00 Lactobacillus Acidoph/Bulgaricus (Floranex) 1 tab BID PO Last administered on 20:50; Admin Dose 1 TAB; Start 10/30/16 at 13:00 Lamotrigine (Lamictal) 200 mg BID PO Last administered on 11/17/16 20:50; Admin Dose 200 MG; Start 10/31/16 at 14:30 Miscellaneous Information 1 ea NOTE XX ; Start 10/31/16 at 13:30 Glucose (Glutose) 15 gm Q15M PRN PO DECREASED GLUCOSE; Start 10/31/16 at 13:30 Glucose (Glutose) 22.5 gm Q15M PRN PO DECREASED GLUCOSE; Start 10/31/16 at 13: 30 Dextrose (D50w Syringe) 25 ml Q15M PRN IV DECREASED GLUCOSE Last administered on 11/16/16 20:54; Admin Dose 25 ML; Start 10/31/16 at 13:30 Dextrose (D50w Syringe) 50 ml Q15M PRN IV DECREASED GLUCOSE; Start 10/31/16 at 13:30 Glucagon (Glucagen) 1 mg Q15M PRN IM DECREASED GLUCOSE; Start 10/31/16 at 13:30 Glucose (Glutose) 15 gm Q15M PRN BUCCAL DECREASED GLUCOSE; Start 10/31/16 at 13 :30 Insulin Glargine (Lantus) 15 unit DAILY@20 SC Last administered on 11/17/16 21 :00; Admin Dose 15 UNIT; Start 11/05/16 at 20:00 Docusate Sodium (Colace) 100 mg BID PO Last administered on 11/15/16 21:29; Admin Dose 100 MG; Start 11/08/16 at 21:00 Silver Sulfadiazine (Thermazene 1% 25 Gm) 1 applic BID TOP Last administered on 11/17/16 20:50; Admin Dose 1 APPLIC; Start 11/09/16 at 14:30 Famotidine (Pepcid) 20 mg BID PO Last administered on 11/17/16 20:49; Admin Dose 20 MG; Start 11/09/16 at 21:00 Polyethylene Glycol 17 gm 17 gm DAILY PO Last administered on 11/15/16 08:09; Admin Dose 17 GM; Start 11/12/16 at 09:00 Caspofungin/ Sodium Chloride (Cancidas/NS) 250 ml @ 250 mls/hr Q24H IVPB Last administered on 11/17/16 17:50; Admin Dose 250 MLS/HR; Start 11/13/16 at 18:00 Metoclopramide HCl (Reglan) 10 mg Q6H PRN IV NAUSEA; Start 11/15/16 at 12:00 Metoprolol Tartrate (Lopressor) 75 mg Q8H PO Last administered on 11/17/16 17: 50; Admin Dose 75 MG; Start 11/15/16 at 17:00 Furosemide (Lasix) 20 mg DAILY PO Last administered on 11/17/16 09:33; Admin Dose 20 MG; Start 11/15/16 at 14:00 Trimethobenzamide HCl (Tigan) 200 mg Q6H PRN IM NAUSEA AND/OR VOMITING Last administered on 11/16/16 13:02; Admin Dose 200 MG; Start 11/16/16 at 11:00 Ondansetron HCl (Zofran Inj) 4 mg Q6H PRN IV NAUSEA AND/OR VOMITING Last administered on 11/17/16 11:47; Admin Dose 4 MG; Start 11/16/16 at 21:00 Apixaban (Eliquis) 5 mg BID PO Last administered on 11/17/16 20:49; Admin Dose 5 MG; Start 11/17/16 at 14:30 BETO PADILLA MD Nov 17, 2016 23:24
[2016-11-18] VITALS (10 sets, daily range): BP systolic 97–125; BP diastolic 57–80; PULSE 85–109; RESP 16–20
[2016-11-18] MEDS: METOPROLOL 25 MG TAB PO SCH ×3 (00:43→17:00)
[2016-11-18 07:22] LABS: BASOPHILS % 0.3 % (0.0-2.0); EOSINOPHILS # 0.3 10^3/ul (0.0-0.5); EOSINOPHILS % 4.2 % (0.0-7.0); HEMATOCRIT 27.3 % (42.0-52.0); HEMOGLOBIN 8.4 g/dl (14.0-18.0); LYMPHOCYTES # 1.3 10^3/ul (0.8-2.9); LYMPHOCYTES % 17.1 % (15.0-51.0); MEAN CORPUSCULAR HEMOGLOBIN 25.4 pg (29.0-33.0); MEAN CORPUSCULAR HGB CONC 30.8 g/dl (32.0-37.0); MEAN CORPUSCULAR VOLUME 82.5 fl (82.0-101.0); MEAN PLATELET VOLUME 8.9 fl (7.4-10.4); MONOCYTE # 0.5 10^3/ul (0.3-0.9); MONOCYTES % 6.2 % (0.0-11.0); NEUTROPHIL # 5.5 10^3/ul (1.6-7.5); NEUTROPHILS % 71.8 % (39.0-77.0); PLATELET COUNT 261 10^3/UL (140-415); RED BLOOD COUNT 3.31 10^6/ul (4.70-6.10); WHITE BLOOD COUNT 7.6 10^3/ul (4.8-10.8)
[2016-11-18 07:23] LABS: ADD SCAN DIFF NO
[2016-11-18 07:27] LABS: POTASSIUM 3.4 mmol/L (3.5-5.1)
[2016-11-18 07:29] LABS: CREATININE 1.05 mg/dl (0.61-1.24)
[2016-11-18 07:30] LABS: CALCIUM 7.9 mg/dl (8.4-10.2)
[2016-11-18] MEDS: INSULIN ASPART [NOVOLOG] 3 ML PEN SC SCH ×7 (07:55→21:00)
[2016-11-18] MEDS: POLYETHYLENE GLYCOL 17 GM PACKET PO SCH (09:00)
[2016-11-18] MEDS: DOCUSATE SODIUM 100 MG CAP PO SCH ×2 (09:00→21:00)
[2016-11-18] MEDS: APIXABAN 5 MG TABLET PO SCH ×2 (09:07→21:44)
[2016-11-18] MEDS: FAMOTIDINE 20 MG TAB PO SCH ×2 (09:08→21:44)
[2016-11-18] MEDS: ASPIRIN 81 MG TAB PO SCH (09:08)
[2016-11-18] MEDS: LAMOTRIGINE 100 MG TAB PO SCH ×2 (09:08→21:44)
[2016-11-18] MEDS: LACTOBACILLUS CHEW TAB PO SCH ×2 (09:08→21:44)
[2016-11-18] MEDS: FUROSEMIDE 20 MG TAB PO SCH (09:09)
[2016-11-18] MEDS: SILVER SULFADIAZINE 1% 25 GM CR TOP SCH ×2 (09:10→21:52)
--- NOTE | 2016-11-18 09:38 | PDOCDIS ---
Discharge Instructions CONDITION Patient Condition: Stable HOME CARE INSTRUCTIONS: Special Diet: low fat, low chol MELODY QUINTERO Nov 18, 2016 09:38
--- NOTE | 2016-11-18 09:39 | RADRPT ---
PROCEDURE: XR Chest. CLINICAL INDICATION: Shortness of breath. TECHNIQUE: Single frontal view. COMPARISON: 11/14/2016. FINDINGS: There is bilateral interstitial disease consistent with pulmonary edema, unchanged. Left basilar at electasis is unchanged. The heart is enlarged. There are sternal wires and mediastinal clips. There is a small right pleural effusion and small to moderate left pleural effusion. There is no pneumothorax. IMPRESSION: 1. No change from 11/14/2016. RPTAT: QQ .Rc العلي MD, MD Date Time Electronically viewed and signed by .Rc العلي MD, MD on 11/18/2016 09:38 .R/
--- NOTE | 2016-11-18 14:14 | CONS ---
Date/Time of Note Date/Time of Note DATE: 11/18/16 TIME: 14:13 Assessment/Plan Assessment/Plan Chief Complaint/Hosp Course Atrial flutter/fib: converted to atrial flutter 11/13. HR ~100s. Not uncommon post cardiac surgery. Amiodarone ineffective for rhythm control. Initially not an anticoagulation candidate due to hematuria but will ask urology to comment if ok to start Eliquis for stroke prophylaxis Status post NSTEMI Coronary artery disease - status post CABG 11/02/2016 (CORTEZ-prox LAD-distal LAD, SVG-OM1, SVG-OM2-PDA, SVG-OM3) Acute on chronic diastolic heart failure - diuresed and thoracentesis at [facility]. Significant edema but improving Mild to moderate right apical pneumothorax - status post pigtail catheter 2016, removed 11/13 Fungemia/fungal UTI: on therapy. Fevers resolved Healthcare-associated pneumonia - per infectious disease Seizure disorder - initial presentation was seizure Diabetes mellitus Anemia - bone marrow biopsy reported to be negative Gross hematuria - per urology, improved Esophagitis on EGD Status post right transmetatarsal amputation -if ok with urology would start Eliquis 5mg BID -metoprolol 75 mg q8h -lasix 20mg PO daily -hold cozaar for now -continue aspirin as tolerated, monitor hematuria -continue atorvastatin Problems: Consultation Date/Type/Reason Admit Date/Time Oct 27, 2016 at 22:32 Type of Consultation: Cardiology Referring Provider: DANA ESCUDERO DO 24 HR Interval Summary Free Text/Dictation Doing well. remains in afib/flutter. HR controlled. Plan for rehab today Exam/Review of Systems Vital Signs Vitals Vital Signs Date Time Temp Pulse Resp B/P Pulse Ox O2 Delivery O2 Flow Rate FiO2 11/18/16 12:16 107 11/18/16 11:10 98.1 20 108/68 93 11/15/16 16:00 Room Air Intake and Output 11/17/16 11/17/16 11/18/16 15:00 23:00 07:00 Intake Total 250 ml 400 ml Output Total 500 ml Balance 250 ml -100 ml Exam Constitutional: alert, oriented Neck: No jvd Respiratory: clear to auscultation, diminished breath sounds Cardiovascular: edema (2+), No regular rate and rhythm Neurological: nl mental status, nl speech Results Result Diagram: 11/18/16 0700 11/18/16 0700 Results 24 hrs Laboratory Tests Test 11/17/16 17:34 11/17/16 20:52 11/18/16 07:00 11/18/16 07:56 Bedside Glucose 142 228 H 70 White Blood Count 7.6 Red Blood Count 3.31 L Hemoglobin 8.4 L Hematocrit 27.3 L Mean Corpuscular Volume 82.5 Mean Corpuscular Hemoglobin 25.4 L Mean Corpuscular Hemoglobin Concent 30.8 L Red Cell Distribution Width 16.0 H Platelet Count 261 Mean Platelet Volume 8.9 Neutrophils % 71.8 Lymphocytes % 17.1 Monocytes % 6.2 Eosinophils % 4.2 Basophils % 0.3 Nucleated Red Blood Cells % 0.0 Neutrophils # 5.5 Lymphocytes # 1.3 Monocytes # 0.5 Eosinophils # 0.3 Basophils # 0.0 Nucleated Red Blood Cells # 0.0 Sodium Level 138 Potassium Level 3.4 L Chloride Level 97 Carbon Dioxide Level 32 H Anion Gap 12 Blood Urea Nitrogen 12 Creatinine 1.05 Glucose Level 73 Calcium Level 7.9 L Test 11/18/16 09:01 11/18/16 12:04 Bedside Glucose 122 131 Medications Medications Current Medications Lorazepam (Ativan) 0.5 mg Q6H PRN IV ANXIETY; Start 10/28/16 at 04:00 Acetaminophen (Tylenol Supp) 650 mg Q6H PRN [place] PAIN LEVEL 1-3 OR FEVER Last administered on 11/12/16 01:58; Admin Dose 650 MG; Start 10/28/16 at 04:00 Aspirin (Aspirin) 81 mg DAILY PO Last administered on 11/18/16 09:08; Admin Dose 81 MG; Start 10/28/16 at 09:00 Atorvastatin Calcium (Lipitor) 40 mg HS PO Last administered on 11/17/16 20:49 ; Admin Dose 40 MG; Start 10/28/16 at 21:00 Acetaminophen/ Hydrocodone Bitart ([place] (5/325)) 1 tab Q4H PRN PO MODERATE PAIN LEVEL 4-6 Last administered on 11/10/16 18:44; Admin Dose 1 TAB; Start at 00:00 Acetaminophen/ Hydrocodone Bitart ([place] (5/325)) 2 tab Q4H PRN PO SEVERE PAIN LEVEL 7-10 Last administered on 11/16/16 06:21; Admin Dose 2 TAB; Start at 00:00 Lactobacillus Acidoph/Bulgaricus (Floranex) 1 tab BID PO Last administered on 09:08; Admin Dose 1 TAB; Start 10/30/16 at 13:00 Lamotrigine (Lamictal) 200 mg BID PO Last administered on 11/18/16 09:08; Admin Dose 200 MG; Start 10/31/16 at 14:30 Miscellaneous Information 1 ea NOTE XX ; Start 10/31/16 at 13:30 Glucose (Glutose) 15 gm Q15M PRN PO DECREASED GLUCOSE; Start 10/31/16 at 13:30 Glucose (Glutose) 22.5 gm Q15M PRN PO DECREASED GLUCOSE; Start 10/31/16 at 13: 30 Dextrose (D50w Syringe) 25 ml Q15M PRN IV DECREASED GLUCOSE Last administered on 11/16/16 20:54; Admin Dose 25 ML; Start 10/31/16 at 13:30 Dextrose (D50w Syringe) 50 ml Q15M PRN IV DECREASED GLUCOSE; Start 10/31/16 at 13:30 Glucagon (Glucagen) 1 mg Q15M PRN IM DECREASED GLUCOSE; Start 10/31/16 at 13:30 Glucose (Glutose) 15 gm Q15M PRN BUCCAL DECREASED GLUCOSE; Start 10/31/16 at 13 :30 Insulin Glargine (Lantus) 15 unit DAILY@20 SC Last administered on 11/17/16 21 :00; Admin Dose 15 UNIT; Start 11/05/16 at 20:00 Docusate Sodium (Colace) 100 mg BID PO Last administered on 11/15/16 21:29; Admin Dose 100 MG; Start 11/08/16 at 21:00 Silver Sulfadiazine (Thermazene 1% 25 Gm) 1 applic BID TOP Last administered on 11/18/16 09:10; Admin Dose 1 APPLIC; Start 11/09/16 at 14:30 Famotidine (Pepcid) 20 mg BID PO Last administered on 11/18/16 09:08; Admin Dose 20 MG; Start 11/09/16 at 21:00 Polyethylene Glycol 17 gm 17 gm DAILY PO Last administered on 11/15/16 08:09; Admin Dose 17 GM; Start 11/12/16 at 09:00 Caspofungin/ Sodium Chloride (Cancidas/NS) 250 ml @ 250 mls/hr Q24H IVPB Last administered on 11/17/16 17:50; Admin Dose 250 MLS/HR; Start 11/13/16 at 18:00 Metoclopramide HCl (Reglan) 10 mg Q6H PRN IV NAUSEA; Start 11/15/16 at 12:00 Metoprolol Tartrate (Lopressor) 75 mg Q8H PO Last administered on 11/17/16 17: 50; Admin Dose 75 MG; Start 11/15/16 at 17:00 Furosemide (Lasix) 20 mg DAILY PO Last administered on 11/18/16 09:09; Admin Dose 20 MG; Start 11/15/16 at 14:00 Trimethobenzamide HCl (Tigan) 200 mg Q6H PRN IM NAUSEA AND/OR VOMITING Last administered on 11/16/16 13:02; Admin Dose 200 MG; Start 11/16/16 at 11:00 Ondansetron HCl (Zofran Inj) 4 mg Q6H PRN IV NAUSEA AND/OR VOMITING Last administered on 11/17/16 11:47; Admin Dose 4 MG; Start 11/16/16 at 21:00 Apixaban (Eliquis) 5 mg BID PO Last administered on 11/18/16 09:07; Admin Dose 5 MG; Start 11/17/16 at 14:30 TOMMIE PERALTA Nov 18, 2016 14:14
--- NOTE | 2016-11-18 15:03 | CONS ---
Date/Time of Note Date/Time of Note DATE: 11/18/16 TIME: 15:02 Assessment/Plan Assessment/Plan Chief Complaint/Hosp Course SUBJECTIVE: Alert, feels good. No fevers MICROBIOLOGY: Blood culture growing yeast on 11/11/2016. Urine culture growing yeast, not [place] albicans. ANTIMICROBIALS: The patient is on Cancidas. PHYSICAL EXAMINATION: GENERAL: This is a well-developed elderly man who is in no distress. HEENT: Head atraumatic, normocephalic. Sclerae anicteric. Buccal mucosa dry. NECK: Supple. CHEST: Rise symmetrical. Breath sounds diminished to bases. HEART: S1, S2. ABDOMEN: Soft, bowel tones present. EXTREMITIES: Bilateral lower extremities edema. ASSESSMENT: 1. Resolving sepsis. 2. Fungemia secondary to urinary tract infection. 3. Status post coronary artery bypass graft on 11/02/2016 with postop atrial flutter 4. Diabetes. 5. History of latent tuberculosis, treated. 6. Hypertension. 7. Persistent nausea, poss gastroparesis PLAN: Doing better, repeat bld cx's negative. Continue present care, will complete Cancidas for 7 more days, dc isolation DW staff Problems: Consultation Date/Type/Reason Admit Date/Time Oct 27, 2016 at 22:32 Initial Consult Date 10/28/16 Type of Consultation: ID Referring Provider: DANA ESCUDERO DO Exam/Review of Systems Vital Signs Vitals Vital Signs Date Time Temp Pulse Resp B/P Pulse Ox O2 Delivery O2 Flow Rate FiO2 11/18/16 12:16 107 11/18/16 11:10 98.1 20 108/68 93 11/15/16 16:00 Room Air Intake and Output 11/17/16 11/17/16 11/18/16 15:00 23:00 07:00 Intake Total 250 ml 400 ml Output Total 500 ml Balance 250 ml -100 ml Results Result Diagram: 11/18/16 0700 11/18/16 0700 Results 24 hrs Laboratory Tests Test 11/17/16 17:34 11/17/16 20:52 11/18/16 07:00 11/18/16 07:56 Bedside Glucose 142 228 H 70 White Blood Count 7.6 Red Blood Count 3.31 L Hemoglobin 8.4 L Hematocrit 27.3 L Mean Corpuscular Volume 82.5 Mean Corpuscular Hemoglobin 25.4 L Mean Corpuscular Hemoglobin Concent 30.8 L Red Cell Distribution Width 16.0 H Platelet Count 261 Mean Platelet Volume 8.9 Neutrophils % 71.8 Lymphocytes % 17.1 Monocytes % 6.2 Eosinophils % 4.2 Basophils % 0.3 Nucleated Red Blood Cells % 0.0 Neutrophils # 5.5 Lymphocytes # 1.3 Monocytes # 0.5 Eosinophils # 0.3 Basophils # 0.0 Nucleated Red Blood Cells # 0.0 Sodium Level 138 Potassium Level 3.4 L Chloride Level 97 Carbon Dioxide Level 32 H Anion Gap 12 Blood Urea Nitrogen 12 Creatinine 1.05 Glucose Level 73 Calcium Level 7.9 L Test 11/18/16 09:01 11/18/16 12:04 Bedside Glucose 122 131 Medications Medications Current Medications Lorazepam (Ativan) 0.5 mg Q6H PRN IV ANXIETY; Start 10/28/16 at 04:00 Acetaminophen (Tylenol Supp) 650 mg Q6H PRN [place] PAIN LEVEL 1-3 OR FEVER Last administered on 11/12/16 01:58; Admin Dose 650 MG; Start 10/28/16 at 04:00 Aspirin (Aspirin) 81 mg DAILY PO Last administered on 11/18/16 09:08; Admin Dose 81 MG; Start 10/28/16 at 09:00 Atorvastatin Calcium (Lipitor) 40 mg HS PO Last administered on 11/17/16 20:49 ; Admin Dose 40 MG; Start 10/28/16 at 21:00 Acetaminophen/ Hydrocodone Bitart ([place] (5/325)) 1 tab Q4H PRN PO MODERATE PAIN LEVEL 4-6 Last administered on 11/10/16 18:44; Admin Dose 1 TAB; Start at 00:00 Acetaminophen/ Hydrocodone Bitart ([place] (5/325)) 2 tab Q4H PRN PO SEVERE PAIN LEVEL 7-10 Last administered on 11/16/16 06:21; Admin Dose 2 TAB; Start at 00:00 Lactobacillus Acidoph/Bulgaricus (Floranex) 1 tab BID PO Last administered on 09:08; Admin Dose 1 TAB; Start 10/30/16 at 13:00 Lamotrigine (Lamictal) 200 mg BID PO Last administered on 11/18/16 09:08; Admin Dose 200 MG; Start 10/31/16 at 14:30 Miscellaneous Information 1 ea NOTE XX ; Start 10/31/16 at 13:30 Glucose (Glutose) 15 gm Q15M PRN PO DECREASED GLUCOSE; Start 10/31/16 at 13:30 Glucose (Glutose) 22.5 gm Q15M PRN PO DECREASED GLUCOSE; Start 10/31/16 at 13: 30 Dextrose (D50w Syringe) 25 ml Q15M PRN IV DECREASED GLUCOSE Last administered on 11/16/16 20:54; Admin Dose 25 ML; Start 10/31/16 at 13:30 Dextrose (D50w Syringe) 50 ml Q15M PRN IV DECREASED GLUCOSE; Start 10/31/16 at 13:30 Glucagon (Glucagen) 1 mg Q15M PRN IM DECREASED GLUCOSE; Start 10/31/16 at 13:30 Glucose (Glutose) 15 gm Q15M PRN BUCCAL DECREASED GLUCOSE; Start 10/31/16 at 13 :30 Insulin Glargine (Lantus) 15 unit DAILY@20 SC Last administered on 11/17/16 21 :00; Admin Dose 15 UNIT; Start 11/05/16 at 20:00 Docusate Sodium (Colace) 100 mg BID PO Last administered on 11/15/16 21:29; Admin Dose 100 MG; Start 11/08/16 at 21:00 Silver Sulfadiazine (Thermazene 1% 25 Gm) 1 applic BID TOP Last administered on 11/18/16 09:10; Admin Dose 1 APPLIC; Start 11/09/16 at 14:30 Famotidine (Pepcid) 20 mg BID PO Last administered on 11/18/16 09:08; Admin Dose 20 MG; Start 11/09/16 at 21:00 Polyethylene Glycol 17 gm 17 gm DAILY PO Last administered on 11/15/16 08:09; Admin Dose 17 GM; Start 11/12/16 at 09:00 Caspofungin/ Sodium Chloride (Cancidas/NS) 250 ml @ 250 mls/hr Q24H IVPB Last administered on 11/17/16 17:50; Admin Dose 250 MLS/HR; Start 11/13/16 at 18:00 Metoclopramide HCl (Reglan) 10 mg Q6H PRN IV NAUSEA; Start 11/15/16 at 12:00 Metoprolol Tartrate (Lopressor) 75 mg Q8H PO Last administered on 11/17/16 17: 50; Admin Dose 75 MG; Start 11/15/16 at 17:00 Furosemide (Lasix) 20 mg DAILY PO Last administered on 11/18/16 09:09; Admin Dose 20 MG; Start 11/15/16 at 14:00 Trimethobenzamide HCl (Tigan) 200 mg Q6H PRN IM NAUSEA AND/OR VOMITING Last administered on 11/16/16 13:02; Admin Dose 200 MG; Start 11/16/16 at 11:00 Ondansetron HCl (Zofran Inj) 4 mg Q6H PRN IV NAUSEA AND/OR VOMITING Last administered on 11/17/16 11:47; Admin Dose 4 MG; Start 11/16/16 at 21:00 Apixaban (Eliquis) 5 mg BID PO Last administered on 11/18/16 09:07; Admin Dose 5 MG; Start 11/17/16 at 14:30 CINDY PINA NP Nov 18, 2016 15:03
[2016-11-18] MEDS: CASPOFUNGIN 50 MG in SOD CHLORIDE 0.9% 250 ML IVPB SCH (17:41)
--- NOTE | 2016-11-18 19:27 | CONS ---
Date/Time of Note Date/Time of Note DATE: 11/18/16 TIME: 19:26 Assessment/Plan Assessment/Plan Chief Complaint/Hosp Course Anemia S/P EGD ([facility]) Esophagitis POST BMBX- AT [facility] FINAL PATH - NEG MONITOR BLOOD COUNT CLOSELY RECHECK STOOL OB HEMATURIA CLEARED OK TO start Eliquis 5mg BID if ok with urology NSTEMI Multivessel CAD History of seizure History of alcoholism History of C difficile colitis Diabetes mellitus Problems: Consultation Date/Type/Reason Admit Date/Time Oct 27, 2016 at 22:32 Initial Consult Date 10/28/16 Type of Consultation: [facility] Referring Provider: DANA ESCUDERO DO 24 HR Interval Summary Free Text/Dictation DOING OK HEMATURIA CLEARED OK TO start Eliquis 5mg BID if ok with urology Exam/Review of Systems Vital Signs Vitals Vital Signs Date Time Temp Pulse Resp B/P Pulse Ox O2 Delivery O2 Flow Rate FiO2 11/18/16 19:13 98.4 66 16 124/80 97 11/15/16 16:00 Room Air Intake and Output 11/17/16 11/17/16 11/18/16 15:00 23:00 07:00 Intake Total 250 ml 400 ml Output Total 500 ml Balance 250 ml -100 ml Exam Constitutional: alert, oriented Head: atraumatic, normocephalic Neck: No jvd Respiratory: clear to auscultation, No crackles/rales Cardiovascular: edema (2+), No regular rate and rhythm Gastrointestinal: non-tender, soft Neurological: nl mental status, nl speech Results Result Diagram: 11/18/16 0700 11/18/16 0700 Results 24 hrs Laboratory Tests Test 11/17/16 20:52 11/18/16 07:00 11/18/16 07:56 11/18/16 09:01 Bedside Glucose 228 H 70 122 White Blood Count 7.6 Red Blood Count 3.31 L Hemoglobin 8.4 L Hematocrit 27.3 L Mean Corpuscular Volume 82.5 Mean Corpuscular Hemoglobin 25.4 L Mean Corpuscular Hemoglobin Concent 30.8 L Red Cell Distribution Width 16.0 H Platelet Count 261 Mean Platelet Volume 8.9 Neutrophils % 71.8 Lymphocytes % 17.1 Monocytes % 6.2 Eosinophils % 4.2 Basophils % 0.3 Nucleated Red Blood Cells % 0.0 Neutrophils # 5.5 Lymphocytes # 1.3 Monocytes # 0.5 Eosinophils # 0.3 Basophils # 0.0 Nucleated Red Blood Cells # 0.0 Sodium Level 138 Potassium Level 3.4 L Chloride Level 97 Carbon Dioxide Level 32 H Anion Gap 12 Blood Urea Nitrogen 12 Creatinine 1.05 Glucose Level 73 Calcium Level 7.9 L Test 11/18/16 12:04 11/18/16 17:40 Bedside Glucose 131 190 Medications Medications Current Medications Lorazepam (Ativan) 0.5 mg Q6H PRN IV ANXIETY; Start 10/28/16 at 04:00 Acetaminophen (Tylenol Supp) 650 mg Q6H PRN [place] PAIN LEVEL 1-3 OR FEVER Last administered on 11/12/16 01:58; Admin Dose 650 MG; Start 10/28/16 at 04:00 Aspirin (Aspirin) 81 mg DAILY PO Last administered on 11/18/16 09:08; Admin Dose 81 MG; Start 10/28/16 at 09:00 Atorvastatin Calcium (Lipitor) 40 mg HS PO Last administered on 11/17/16 20:49 ; Admin Dose 40 MG; Start 10/28/16 at 21:00 Acetaminophen/ Hydrocodone Bitart ([place] (5/325)) 1 tab Q4H PRN PO MODERATE PAIN LEVEL 4-6 Last administered on 11/10/16 18:44; Admin Dose 1 TAB; Start at 00:00 Acetaminophen/ Hydrocodone Bitart ([place] (5/325)) 2 tab Q4H PRN PO SEVERE PAIN LEVEL 7-10 Last administered on 11/16/16 06:21; Admin Dose 2 TAB; Start at 00:00 Lactobacillus Acidoph/Bulgaricus (Floranex) 1 tab BID PO Last administered on 09:08; Admin Dose 1 TAB; Start 10/30/16 at 13:00 Lamotrigine (Lamictal) 200 mg BID PO Last administered on 11/18/16 09:08; Admin Dose 200 MG; Start 10/31/16 at 14:30 Miscellaneous Information 1 ea NOTE XX ; Start 10/31/16 at 13:30 Glucose (Glutose) 15 gm Q15M PRN PO DECREASED GLUCOSE; Start 10/31/16 at 13:30 Glucose (Glutose) 22.5 gm Q15M PRN PO DECREASED GLUCOSE; Start 10/31/16 at 13: 30 Dextrose (D50w Syringe) 25 ml Q15M PRN IV DECREASED GLUCOSE Last administered on 11/16/16 20:54; Admin Dose 25 ML; Start 10/31/16 at 13:30 Dextrose (D50w Syringe) 50 ml Q15M PRN IV DECREASED GLUCOSE; Start 10/31/16 at 13:30 Glucagon (Glucagen) 1 mg Q15M PRN IM DECREASED GLUCOSE; Start 10/31/16 at 13:30 Glucose (Glutose) 15 gm Q15M PRN BUCCAL DECREASED GLUCOSE; Start 10/31/16 at 13 :30 Insulin Glargine (Lantus) 15 unit DAILY@20 SC Last administered on 11/17/16 21 :00; Admin Dose 15 UNIT; Start 11/05/16 at 20:00 Docusate Sodium (Colace) 100 mg BID PO Last administered on 11/15/16 21:29; Admin Dose 100 MG; Start 11/08/16 at 21:00 Silver Sulfadiazine (Thermazene 1% 25 Gm) 1 applic BID TOP Last administered on 11/18/16 09:10; Admin Dose 1 APPLIC; Start 11/09/16 at 14:30 Famotidine (Pepcid) 20 mg BID PO Last administered on 11/18/16 09:08; Admin Dose 20 MG; Start 11/09/16 at 21:00 Polyethylene Glycol 17 gm 17 gm DAILY PO Last administered on 11/15/16 08:09; Admin Dose 17 GM; Start 11/12/16 at 09:00 Caspofungin/ Sodium Chloride (Cancidas/NS) 250 ml @ 250 mls/hr Q24H IVPB Last administered on 11/18/16 17:41; Admin Dose 250 MLS/HR; Start 11/13/16 at 18:00 Metoclopramide HCl (Reglan) 10 mg Q6H PRN IV NAUSEA; Start 11/15/16 at 12:00 Metoprolol Tartrate (Lopressor) 75 mg Q8H PO Last administered on 11/17/16 17: 50; Admin Dose 75 MG; Start 11/15/16 at 17:00 Furosemide (Lasix) 20 mg DAILY PO Last administered on 11/18/16 09:09; Admin Dose 20 MG; Start 11/15/16 at 14:00 Trimethobenzamide HCl (Tigan) 200 mg Q6H PRN IM NAUSEA AND/OR VOMITING Last administered on 11/16/16 13:02; Admin Dose 200 MG; Start 11/16/16 at 11:00 Ondansetron HCl (Zofran Inj) 4 mg Q6H PRN IV NAUSEA AND/OR VOMITING Last administered on 11/17/16 11:47; Admin Dose 4 MG; Start 11/16/16 at 21:00 Apixaban (Eliquis) 5 mg BID PO Last administered on 11/18/16 09:07; Admin Dose 5 MG; Start 11/17/16 at 14:30 BETO PADILLA MD Nov 18, 2016 19:27
[2016-11-18] MEDS: ATORVASTATIN 40 MG TAB PO SCH (21:45)
[2016-11-18] MEDS: INSULIN GLARGINE [LANtus] 3 ML PEN SC SCH (22:03)
[2016-11-19] MEDS: METOPROLOL 25 MG TAB PO SCH ×3 (00:59→17:45)
[2016-11-19 05:33] LABS: ADD SCAN DIFF NO
[2016-11-19 05:49] LABS: POTASSIUM 3.6 mmol/L (3.5-5.1)
[2016-11-19 05:51] LABS: BASOPHILS % 0.1 % (0.0-2.0); CREATININE 1.09 mg/dl (0.61-1.24); EOSINOPHILS # 0.3 10^3/ul (0.0-0.5); EOSINOPHILS % 3.5 % (0.0-7.0); HEMATOCRIT 29.8 % (42.0-52.0); HEMOGLOBIN 9.1 g/dl (14.0-18.0); LYMPHOCYTES # 1.2 10^3/ul (0.8-2.9); LYMPHOCYTES % 16.4 % (15.0-51.0); MEAN CORPUSCULAR HEMOGLOBIN 25.2 pg (29.0-33.0); MEAN CORPUSCULAR HGB CONC 30.5 g/dl (32.0-37.0); MEAN CORPUSCULAR VOLUME 82.5 fl (82.0-101.0); MEAN PLATELET VOLUME 9.1 fl (7.4-10.4); MONOCYTE # 0.5 10^3/ul (0.3-0.9); MONOCYTES % 6.8 % (0.0-11.0); NEUTROPHIL # 5.2 10^3/ul (1.6-7.5); NEUTROPHILS % 72.5 % (39.0-77.0); PLATELET COUNT 310 10^3/UL (140-415); RED BLOOD COUNT 3.61 10^6/ul (4.70-6.10); RED CELL DISTRIBUTION WIDTH 16.2 % (11.5-14.5); WHITE BLOOD COUNT 7.2 10^3/ul (4.8-10.8)
[2016-11-19 05:52] LABS: CALCIUM 8.3 mg/dl (8.4-10.2)
[2016-11-19 07:57] VITALS: BP 125/79; RESP 20
[2016-11-19] MEDS: INSULIN ASPART [NOVOLOG] 3 ML PEN SC SCH ×6 (08:15→17:35)
--- NOTE | 2016-11-19 08:47 | DS ---
DATE OF ADMISSION: 10/27/2016 DATE OF DISCHARGE: 11/18/2016 HISTORY OF PRESENT ILLNESS: The patient came in from [facility] with a history of estes ry artery bypass graft in October 2016, with a question of seizure activity and also abdominal pain wh o was admitted and seen by multiple specialists during this hospital stay, including cardiology team , hematology/oncology team, cardiothoracic surgery team, infectious disease team and urology team. The patient's seizure disorder was stable on Lamictal medications as well. He was found with new on set atrial fibrillation and atrial flutter, presumably secondary to the patient's CABG that he had h ad performed in October 2016 prior to this admission, CABG bypass surgery. So in any event, his atria l flutter was treated by the cardiology team. He was placed initially on amiodarone and beta blocke r and he was continued on beta arden. His heart rate improved. He had recurrent left-sided pleur al effusion and possible infiltrate, CHF versus possible pneumonia, which was improving on x-ray as well, and of course he did undergo the bypass surgery x6. He had a CORTEZ to LAD, proximal CORTEZ to LA D, distal saphenous vein graft to the first obtuse marginal, saphenous vein graft to second obtuse m arginal in natural Y fashion, saphenous vein graft to the third obtuse marginal, saphenous vein kim t to PDA in a natural Y fashion, and LAD endarterectomy as well, thymectomy. The patient tolerated the procedure well. He was also found with [place] tropicalis bacteremia and yeast infection, and was treated with appro priate antifungal medications as well. His white blood cell count improved. His repeat blood cultu res were negative growth x2 days. He was working with physical therapy as well. He was seen by uro logy team because of some hematuria that resolved as well, and urine cytology appeared to be negativ e. His sepsis from his candiduria and fungemia were improved. His hematuria improved. His heart r ate with atrial fibrillation and atrial flutter symptoms improved. He was able to ambulate and tole rate a p.o. diet. He had no further seizure activity. 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 After getting clearance from computer systems consultant teams, he will be discharged to [facility] today in improved condition. Of note, he did have a postop pneumothorax that resolved status post chest tube placement on 017 and removed on 11/13/2016. Again, no present breathing issues. He will be discharged to [facility] today in improved condition. DISCHARGE MEDICATIONS: He will be sent with: 1. Tylenol 650 q.6h. p.r.n. 2. Eliquis 5 mg b.i.d. 3. Aspirin 81 mg daily. 4. Lipitor 40 mg at bedtime. 5. Caspofungin 50 mg IV for 8 more days. 6. Colace 100 mg b.i.d. 7. Pepcid 20 mg b.i.d. 8. Lasix 20 mg daily. 9. Brady 5/325 q.4 p.r.n. 10. Mild insulin sliding scale Aspart insulin 5 units of aspart with meals. 11. Lantus 15 units subq daily. 12. Floranex 1 tab b.i.d. 13. Lamictal 200 mg b.i.d. 14. Ativan 0.5 mg IV q.6h. p.r.n. 15. Reglan 10 mg IV q.6h. p.r.n. 16. Metoprolol 75 mg q.8h. 17. Zofran 4 mg IV q.6h. p.r.n. 18. MiraLax 17 grams daily. 19. Silver sulfadiazine apply topically b.i.d. 20. Tigan 200 mg IM q.6. p.r.n. He will need to follow up with the computer systems consultant in the clinic in the next 1 to 2 weeks. FINAL DIAGNOSES: 1. Coronary artery disease with non-STEMI, status post CABG x6 on 11/02/2016, improving. 2. Type 2 diabetes 3. Peripheral vascular disease status post TMA of the right foot amputation in the past. 4. Seizure disorder, stable on Lamictal. 5. New onset atrial fibrillation/atrial flutter after the CABG procedures and stable on beta blocke r now, and on Eliquis for anticoagulation. 6. Postop pneumothorax resolved after chest tube placement. 7. Recurrent left-sided pleural effusion, improving on recent chest x-rays. 8. Sepsis secondary to [place] bacteremia and fungemia, and urinary tract infection, now improved o n caspofungin. 9. History of upper GI bleeding with esophagitis on EGD, now stable. 10. Severe iron deficiency anemia, status post transfusion, stable H and H levels. 11. Previous heavy tobacco and alcohol abuse, counseled on cessation. 12. Persistent nausea, vomiting. No obstruction on KUB, possibly secondary to amiodarone use, now off amiodarone. 13. History of prior Clostridium difficile, stable. No signs of any present infection there. Time spent discharging patient 55 minutes. Dictated By: MELODY BLAKELY Conf#: [id number] DID#: [id number]
[2016-11-19] MEDS: FUROSEMIDE 20 MG TAB PO SCH (08:49)
[2016-11-19] MEDS: ASPIRIN 81 MG TAB PO SCH (08:49)
[2016-11-19] MEDS: FAMOTIDINE 20 MG TAB PO SCH (08:49)
[2016-11-19] MEDS: LACTOBACILLUS CHEW TAB PO SCH (08:50)
[2016-11-19] MEDS: APIXABAN 5 MG TABLET PO SCH (08:50)
[2016-11-19] MEDS: LAMOTRIGINE 100 MG TAB PO SCH (08:51)
[2016-11-19] MEDS: POLYETHYLENE GLYCOL 17 GM PACKET PO SCH (08:52)
[2016-11-19] MEDS: SILVER SULFADIAZINE 1% 25 GM CR TOP SCH (08:53)
[2016-11-19] MEDS: DOCUSATE SODIUM 100 MG CAP PO SCH (08:53)
--- NOTE | 2016-11-19 09:23 | DS ---
Date/Time of Note Date/Time of Note DATE: 11/19/16 TIME: 09:22 Discharge Summary Admission/Discharge Info Admit Date/Time Oct 27, 2016 at 22:32 Discharge Date/Time Final Diagnosis 1. Coronary artery disease with non-STEMI, status post CABG x6 on 11/02/2016, improving. 2. Type 2 diabetes 3. Peripheral vascular disease status post TMA of the right foot amputation in the past. 4. Seizure disorder, stable on Lamictal. 5. New onset atrial fibrillation/atrial flutter after the CABG procedures and stable on beta arden now, and on Eliquis for anticoagulation. 6. Postop pneumothorax resolved after chest tube placement. 7. Recurrent left-sided pleural effusion, improving on recent chest x-rays. 8. Sepsis secondary to [place] bacteremia and fungemia, and urinary tract infection, now improved on caspofungin. 9. History of upper GI bleeding with esophagitis on EGD, now stable. 10. Severe iron deficiency anemia, status post transfusion, stable H and H levels. 11. Previous heavy tobacco and alcohol abuse, counseled on cessation. 12. Persistent nausea, vomiting. No obstruction on KUB, possibly secondary to amiodarone use, now off amiodarone. 13. History of prior Clostridium difficile, stable. No signs of any present infection there. Time spent discharging patient 55 minutes. Hx of Present Illness Patient was transferred to us from [facility]. Initially, based on the paperwork that was sent with the patient, it seemed that he was sent here by mistake, and that he should have been returned to his group home.But ultimately, we found he was sent here to get a Cardiac Cath and to receive the rest of his care here. Unfortunately, there was no Discharge Summary with the patient and the note we had was that he was waiting for his Bone Marrow biopsy results and that if there was no adenopathy, he should get a heart cath. However , based on the CT of his chest, there was a lot of mediastinal nodes and a satellite lesion in the base that appeared to be malignant. Patient states this is why they did th bone marrow biopsy. Also, we did learn that patient was scheduled for a Heart Cath at 1430 on 10/28/16 . . . but it seemed that our physicians, the accepting hospitalist and the healthcare management consultant may not have the entire story. Ultimately, it was me that did not have all the story. Patient had originally presented to [facility] after suffering 4 seizures in a row. His Troponins were found to be elevated and he was diagnosed with an NSTEMI. He also had some GI bleeding which has resolved. Patient states, and I can confirm it from the paperwork that he did have a thoracentesis, 410 mL fluid removed and sent to path, which helped him feel much better. Course of care not clear without a Discharge Summary as reference. came in, and when I had finished my interview, he let me know that prior to discharge, the patient's plan had changed and that he is supposed to get his Angiogram done today. Patient lets me know that he is having insurance and SNF issues in that he cannot return to [facility], the SNF he has been living at, because his insurance changed, and he is not sure what to do when he leaves [facility] as he has nowhere to stay. Other than being tired from only getting 3 hours of sleep, patient has no specific complaints or concerns. Hospital Course DATE OF ADMISSION: 10/27/2016 DATE OF DISCHARGE: 11/19/2016 HISTORY OF PRESENT ILLNESS: The patient came in from [facility] with a history of coronary artery bypass graft in October 2016, with a question of seizure activity and also abdominal pain who was admitted and seen by multiple specialists during this hospital stay, including cardiology team, hematology/oncology team, cardiothoracic surgery team, infectious disease team and urology team. The patient's seizure disorder was stable on Lamictal medications as well. He was found with new onset atrial fibrillation and atrial flutter, presumably secondary to the patient's CABG that he had had performed in October 2016 prior to this admission, CABG bypass surgery. So in any event, his atrial flutter was treated by the cardiology team. He was placed initially on amiodarone and beta arden and he was continued on beta arden. His heart rate improved. He had recurrent left-sided pleural effusion and possible infiltrate, CHF versus possible pneumonia, which was improving on x-ray as well, and of course he did undergo the bypass surgery x6. He had a CORTEZ to LAD, proximal CORTEZ to LAD, distal saphenous vein graft to the first obtuse marginal, saphenous vein graft to second obtuse marginal in natural Y fashion, saphenous vein graft to the third obtuse marginal, saphenous vein graft to PDA in a natural Y fashion, and LAD endarterectomy as well, thymectomy. The patient tolerated the procedure well. He was also found with [place] tropicalis bacteremia and yeast infection, and was treated with appropriate antifungal medications as well. His white blood cell count improved. His repeat blood cultures were negative growth x2 days. He was working with physical therapy as well. He was seen by urology team because of some hematuria that resolved as well, and urine cytology appeared to be negative. His sepsis from his candiduria and fungemia were improved. His hematuria improved. His heart rate with atrial fibrillation and atrial flutter symptoms improved. He was able to ambulate and tolerate a p.o. diet. He had no further seizure activity. He was counseled on cessation of heavy tobacco and alcohol use. After getting clearance from fundraising consultant teams, he will be discharged to group home facility today in improved condition. Of note, he did have a postop pneumothorax that resolved status post chest tube placement on 11/09/2016 and removed on 11/13/2016. Again, no present breathing issues. He will be discharged to group home facility today in improved condition if his repeat UA results are negative. DISCHARGE MEDICATIONS: He will be sent with: 1. Tylenol 650 q.6h. p.r.n. 2. Eliquis 5 mg b.i.d. 3. Aspirin 81 mg daily. 4. Lipitor 40 mg at bedtime. 5. Caspofungin 50 mg IV for 8 more days. 6. Colace 100 mg b.i.d. 7. Pepcid 20 mg b.i.d. 8. Lasix 20 mg daily. 9. [place] 5/325 q.4 p.r.n. 10. Mild insulin sliding scale Aspart insulin 5 units of aspart with meals. 11. Lantus 15 units subq daily. 12. Floranex 1 tab b.i.d. 13. Lamictal 200 mg b.i.d. 14. Ativan 0.5 mg IV q.6h. p.r.n. 15. Reglan 10 mg IV q.6h. p.r.n. 16. Metoprolol 75 mg q.8h. 17. Zofran 4 mg IV q.6h. p.r.n. 18. MiraLax 17 grams daily. 19. Silver sulfadiazine apply topically b.i.d. 20. Tigan 200 mg IM q.6. p.r.n. He will need to follow up with the fundraising consultant in the clinic in the next 1 to 2 weeks. Home Meds Reported Medications Insulin Glargine* (Lantus*) 100 Unit/Ml Soln, 10 UNIT SC QHS, #1 VIAL 10/30/16 Lamotrigine* (Lamictal*) 200 Mg Tablet, 200 MG PO DAILY, TAB 10/30/16 Metformin* (Glucophage*) 500 Mg Tab, 500 MG PO WITH BREAKFAST DINNE, #30 TAB 10/30/16 Pending Labs Laboratory Tests Test 11/18/16 10:30 11/18/16 12:04 11/18/16 17:40 11/18/16 21:43 Stool Occult Blood NEGATIVE (NEGATIVE) Bedside Glucose 131mg/dL (70-220) 190mg/dL (70-220) 152mg/dL (70-220) Test 11/19/16 05:21 11/19/16 08:00 11/19/16 08:46 White Blood Count 7.210^3/ul (4.8-10.8) Red Blood Count 3.6110^6/ul (4.70-6.10) Hemoglobin 9.1g/dl (14.0-18.0) Hematocrit 29.8% (42.0-52.0) Mean Corpuscular Volume 82.5fl (82.0-101.0) Mean Corpuscular Hemoglobin 25.2pg (29.0-33.0) Mean Corpuscular Hemoglobin Concent 30.5g/dl (32.0-37.0) Red Cell Distribution Width 16.2% (11.5-14.5) Platelet Count 55897^3/UL (140-415) Mean Platelet Volume 9.1fl (7.4-10.4) Neutrophils % 72.5% (39.0-77.0) Lymphocytes % 16.4% (15.0-51.0) Monocytes % 6.8% (0.0-11.0) Eosinophils % 3.5% (0.0-7.0) Basophils % 0.1% (0.0-2.0) Nucleated Red Blood Cells % 0.0/100WBC (0.0-0.0) Neutrophils # 5.210^3/ul (1.6-7.5) Lymphocytes # 1.210^3/ul (0.8-2.9) Monocytes # 0.510^3/ul (0.3-0.9) Eosinophils # 0.310^3/ul (0.0-0.5) Basophils # 0.010^3/ul (0.0-0.1) Nucleated Red Blood Cells # 0.010^3/ul (0.0-0.0) Sodium Level 139mmol/L (135-144) Potassium Level 3.6mmol/L (3.5-5.1) Chloride Level 96mmol/L (97-110) Carbon Dioxide Level 33mmol/L (21-31) Anion Gap 14 (8-16) Blood Urea Nitrogen 10mg/dl (7-20) Creatinine 1.09mg/dl (0.61-1.24) Glucose Level 122mg/dl (70-220) Calcium Level 8.3mg/dl (8.4-10.2) Bedside Glucose 112mg/dL (70-220) 126mg/dL (70-220) MELODY QUINTERO Nov 19, 2016 09:23
--- NOTE | 2016-11-19 09:39 | PN ---
DATE: 11/19/2016 SUBJECTIVE: Patient has no complaints, is comfortable. He did previously have hematuria, but he i s now voiding and states that he is voiding well and there is no dysuria and no pain with urination. OBJECTIVE: VITAL SIGNS: His temperature is 98.3, pulse is 114, respirations 20, blood pressure 125/79. LABORATORY: CBC shows a white count of 7.2, hemoglobin 9.1, hematocrit 29.8, platelet count 310,000. BUN is 10, creatinine 1.09. Sodium 139, potassium 3.6, chloride 96, CO2 33. The urine culture that was sent yesterday is still pending. The patient did have previously a pelvi c ultrasound which basically showed that the patient is emptying his bladder well and the prostate i s not large, so from a urological standpoint he should be able to go to the snf. Urine cyt ology done on 2 specimens, there was no evidence of malignant cells. Therefore recommendation from urology s that he could go to the snf and he is voiding well. Should he in the future dimasi n keep having hematuria, then he should undergo a cystoscopy, and that could be done in the office a s an outpatient. The patient will follow up with his primary care physician. Dictated By: LIDIA CARRERA/JOSELINE Conf#: [id number] DID#: [id number]
--- NOTE | 2016-11-19 11:13 | CONS ---
Date/Time of Note Date/Time of Note DATE: 11/19/16 TIME: 11:13 Assessment/Plan Assessment/Plan Chief Complaint/Hosp Course Anemia S/P EGD ([facility]) Esophagitis POST BMBX- AT [facility] FINAL PATH - NEG MONITOR BLOOD COUNT CLOSELY RECHECK STOOL OB HEMATURIA CLEARED OK TO start Eliquis 5mg BID if ok with urology NSTEMI Multivessel CAD History of seizure History of alcoholism History of C difficile colitis Diabetes mellitus Problems: Consultation Date/Type/Reason Admit Date/Time Oct 27, 2016 at 22:32 Initial Consult Date 10/28/16 Type of Consultation: hemeon Referring Provider: DANA ESCUDERO DO 24 HR Interval Summary Free Text/Dictation ALL NOTED Exam/Review of Systems Vital Signs Vitals Vital Signs Date Time Temp Pulse Resp B/P Pulse Ox O2 Delivery O2 Flow Rate FiO2 11/19/16 07:57 98.3 114 20 125/79 96 11/15/16 16:00 Room Air Intake and Output 11/18/16 11/18/16 11/19/16 15:00 23:00 07:00 Intake Total 3000 ml 300 ml Output Total 1800 ml 600 ml Balance 1200 ml -300 ml Exam GENERAL: This is a well-developed elderly man who is in no distress. HEENT: Head atraumatic, normocephalic. Sclerae anicteric. Buccal mucosa dry. NECK: Supple. CHEST: Rise symmetrical. Breath sounds diminished to bases. HEART: S1, S2. ABDOMEN: Soft, bowel tones present. EXTREMITIES: Bilateral lower extremities edema. Results Result Diagram: 11/19/16 0521 11/19/16 0521 Results 24 hrs Laboratory Tests Test 11/18/16 12:04 11/18/16 17:40 11/18/16 21:43 11/19/16 05:21 Bedside Glucose 131 190 152 White Blood Count 7.2 Red Blood Count 3.61 L Hemoglobin 9.1 L Hematocrit 29.8 L Mean Corpuscular Volume 82.5 Mean Corpuscular Hemoglobin 25.2 L Mean Corpuscular Hemoglobin Concent 30.5 L Red Cell Distribution Width 16.2 H Platelet Count 310 Mean Platelet Volume 9.1 Neutrophils % 72.5 Lymphocytes % 16.4 Monocytes % 6.8 Eosinophils % 3.5 Basophils % 0.1 Nucleated Red Blood Cells % 0.0 Neutrophils # 5.2 Lymphocytes # 1.2 Monocytes # 0.5 Eosinophils # 0.3 Basophils # 0.0 Nucleated Red Blood Cells # 0.0 Sodium Level 139 Potassium Level 3.6 Chloride Level 96 L Carbon Dioxide Level 33 H Anion Gap 14 Blood Urea Nitrogen 10 Creatinine 1.09 Glucose Level 122 # Calcium Level 8.3 L Test 11/19/16 08:00 11/19/16 08:46 Bedside Glucose 112 126 Medications Medications Current Medications Lorazepam (Ativan) 0.5 mg Q6H PRN IV ANXIETY; Start 10/28/16 at 04:00 Acetaminophen (Tylenol Supp) 650 mg Q6H PRN AL PAIN LEVEL 1-3 OR FEVER Last administered on 11/12/16 01:58; Admin Dose 650 MG; Start 10/28/16 at 04:00 Aspirin (Aspirin) 81 mg DAILY PO Last administered on 11/19/16 08:49; Admin Dose 81 MG; Start 10/28/16 at 09:00 Atorvastatin Calcium (Lipitor) 40 mg HS PO Last administered on 11/18/16 21:45 ; Admin Dose 40 MG; Start 10/28/16 at 21:00 Acetaminophen/ Hydrocodone Bitart ([place] (5/325)) 1 tab Q4H PRN PO MODERATE PAIN LEVEL 4-6 Last administered on 11/10/16 18:44; Admin Dose 1 TAB; Start at 00:00 Acetaminophen/ Hydrocodone Bitart ([place] (5/325)) 2 tab Q4H PRN PO SEVERE PAIN LEVEL 7-10 Last administered on 11/16/16 06:21; Admin Dose 2 TAB; Start at 00:00 Lactobacillus Acidoph/[place] (Floranex) 1 tab BID PO Last administered on 08:50; Admin Dose 1 TAB; Start 10/30/16 at 13:00 Lamotrigine (Lamictal) 200 mg BID PO Last administered on 11/19/16 08:51; Admin Dose 200 MG; Start 10/31/16 at 14:30 Miscellaneous Information 1 ea NOTE XX ; Start 10/31/16 at 13:30 Glucose (Glutose) 15 gm Q15M PRN PO DECREASED GLUCOSE; Start 10/31/16 at 13:30 Glucose (Glutose) 22.5 gm Q15M PRN PO DECREASED GLUCOSE; Start 10/31/16 at 13: 30 Dextrose (D50w Syringe) 25 ml Q15M PRN IV DECREASED GLUCOSE Last administered on 11/16/16 20:54; Admin Dose 25 ML; Start 10/31/16 at 13:30 Dextrose (D50w Syringe) 50 ml Q15M PRN IV DECREASED GLUCOSE; Start 10/31/16 at 13:30 Glucagon (Glucagen) 1 mg Q15M PRN IM DECREASED GLUCOSE; Start 10/31/16 at 13:30 Glucose (Glutose) 15 gm Q15M PRN BUCCAL DECREASED GLUCOSE; Start 10/31/16 at 13 :30 Insulin Glargine (Lantus) 15 unit DAILY@20 SC Last administered on 11/18/16 22 :03; Admin Dose 15 UNIT; Start 11/05/16 at 20:00 Docusate Sodium (Colace) 100 mg BID PO Last administered on 11/15/16 21:29; Admin Dose 100 MG; Start 11/08/16 at 21:00 Silver Sulfadiazine (Thermazene 1% 25 Gm) 1 applic BID TOP Last administered on 11/19/16 08:53; Admin Dose 1 APPLIC; Start 11/09/16 at 14:30 Famotidine (Pepcid) 20 mg BID PO Last administered on 11/19/16 08:49; Admin Dose 20 MG; Start 11/09/16 at 21:00 Polyethylene Glycol 17 gm 17 gm DAILY PO Last administered on 11/15/16 08:09; Admin Dose 17 GM; Start 11/12/16 at 09:00 Caspofungin/ Sodium Chloride (Canc[place]/NS) 250 ml @ 250 mls/hr Q24H IVPB Last administered on 11/18/16 17:41; Admin Dose 250 MLS/HR; Start 11/13/16 at 18:00 Metoclopramide HCl (Reglan) 10 mg Q6H PRN IV NAUSEA; Start 11/15/16 at 12:00 Metoprolol Tartrate (Lopressor) 75 mg Q8H PO Last administered on 11/19/16 08: 52; Admin Dose 75 MG; Start 11/15/16 at 17:00 Furosemide (Lasix) 20 mg DAILY PO Last administered on 11/19/16 08:49; Admin Dose 20 MG; Start 11/15/16 at 14:00 Trimethobenzamide HCl (Tigan) 200 mg Q6H PRN IM NAUSEA AND/OR VOMITING Last administered on 11/16/16 13:02; Admin Dose 200 MG; Start 11/16/16 at 11:00 Ondansetron HCl (Zofran Inj) 4 mg Q6H PRN IV NAUSEA AND/OR VOMITING Last administered on 11/17/16 11:47; Admin Dose 4 MG; Start 11/16/16 at 21:00 Apixaban (Eliquis) 5 mg BID PO Last administered on 11/19/16 08:50; Admin Dose 5 MG; Start 11/17/16 at 14:30 BETO PADILLA MD Nov 19, 2016 11:13
[2016-11-19 14:36] LABS: ADD UMIC YES; URINE BILIRUBIN (Dip) NEGATIVE (NEGATIVE); URINE BLOOD (Dip) 2+ (NEGATIVE); URINE COLOR LT. YELLOW (YELLOW); URINE GLUCOSE (Dip) NEGATIVE (NEGATIVE); URINE KETONES (Dip) NEGATIVE (NEGATIVE); URINE LEUKOCYTE ESTERASE (Dip) TRACE (NEGATIVE); URINE NITRITE (Dip) NEGATIVE (NEGATIVE); URINE TOTAL PROTEIN (Dip) NEGATIVE (NEGATIVE); URINE UROBILINOGEN (Dip) 0.2 E.U./dL (0.1-1.0)
[2016-11-19 14:49] LABS: BACTERIA,URINE FEW
[2016-11-19] MEDS: CASPOFUNGIN 50 MG in SOD CHLORIDE 0.9% 250 ML IVPB SCH (17:42)
[2016-11-19 17:45] VITALS: BP 127/77; PULSE 118
[2016-11-19 20:02] VITALS: BP 114/82; PULSE 94; RESP 18
== END 2016-11-19 20:10 | DRG 233 ==
LOC: TEL 22:32 → MS4 10-28 02:00 → UNDODISIN 10-28 02:50 → MS4 10-28 04:25 → ICU 11-02 16:08 → TEL 11-06 20:58 → MS2 11-18 19:08
PROVIDERS: ADMIT Family Medicine; ATTEND Family Medicine
PROC: B211YZZ Fluoroscopy of Multiple Coronary Arteries using Other Contrast (ICD-10-PCS; 2016-10-28)
PROC: B215YZZ Fluoroscopy of Left Heart using Other Contrast (ICD-10-PCS; 2016-10-28)
PROC: 4A023N8 Measurement of Cardiac Sampling and Pressure, Bilateral, Percutaneous Approach (ICD-10-PCS; 2016-10-28 13:00)
PROC: 02100Z9 Bypass Coronary Artery, One Artery from Left Internal Mammary, Open Approach (ICD-10-PCS; 2016-11-02)
PROC: 06BQ4ZZ Excision of Left Saphenous Vein, Percutaneous Endoscopic Approach (ICD-10-PCS; 2016-11-02)
PROC: 5A1221Z Performance of Cardiac Output, Continuous (ICD-10-PCS; 2016-11-02)
PROC: 30233N1 Transfusion of Nonautologous Red Blood Cells into Peripheral Vein, Percutaneous Approach (ICD-10-PCS; 2016-11-02)
PROC: 021309W Bypass Coronary Artery, Four or More Arteries from Aorta with Autologous Venous Tissue, Open Approach (ICD-10-PCS; principal; 2016-11-02 09:30)
PROC: 0W9930Z Drainage of Right Pleural Cavity with Drainage Device, Percutaneous Approach (ICD-10-PCS; 2016-11-09)
DX: I21.4 Non-ST elevation (NSTEMI) myocardial infarction (principal); B37.7 Candidal sepsis; I50.33 Acute on chronic diastolic (congestive) heart failure; J18.9 Pneumonia, unspecified organism; I11.0 Hypertensive heart disease with heart failure; J95.811 Postprocedural pneumothorax; I48.92 Unspecified atrial flutter; E11.51 Type 2 diabetes mellitus with diabetic peripheral angiopathy without gangrene; N39.0 Urinary tract infection, site not specified; I48.91 Unspecified atrial fibrillation; G40.909 Epilepsy, unspecified, not intractable, without status epilepticus; I25.10 Atherosclerotic heart disease of native coronary artery without angina pectoris; E11.9 Type 2 diabetes mellitus without complications; R11.2 Nausea with vomiting, unspecified; R19.7 Diarrhea, unspecified; E78.5 Hyperlipidemia, unspecified; I34.0 Nonrheumatic mitral (valve) insufficiency; R31.0 Gross hematuria; T46.2X5A Adverse effect of other antidysrhythmic drugs, initial encounter; D50.0 Iron deficiency anemia secondary to blood loss (chronic); Y83.2 Surgical operation with anastomosis, bypass or graft as the cause of abnormal reaction of the patient, or of later complication, without mention of misadventure at the time of the procedure; Y92.238 Other place in hospital as the place of occurrence of the external cause; Z22.322 Carrier or suspected carrier of Methicillin resistant Staphylococcus aureus; Z89.431 Acquired absence of right foot; Z79.4 Long term (current) use of insulin; Z86.19 Personal history of other infectious and parasitic diseases
CPT/HCPCS: 36430; 36589; 36600; 71010; 74000; 74176; 75982; 76775; 76856; 80048; 80053; 80061; 80076; 80202; 81001; 81003; 82270; 82306; 82550; 82553; 82803; 82962; 83036; 83540; 83615; 83690; 83735; 84100; 84145; 84153; 84154; 84443; 84484; 85014; 85025; 85610; 85730; 86635; 86850; 86900; 86901; 86920; 87040; 87075; 87081; 87086; 88104; 93005; 93306; 93312; 93325; 93458; 94002; 94640; 94664; 94770; 97116; 97162; 97530; J1940; C1769; C1887; C9113; J0171; J0282; J0690; J1265; J1644; J1650; J1815; J2001; J2150; J2185; J2250; J2270; J2370; J2405; J2440; J2720; J2765; J2916; J3010; J3250; J3370; J3475; J3480; J7040; J7050; J7060; J7070; P9016; P9045; P9047; Q9967